=== PATIENT | female | born 1985 | race Caucasian/White ===

== ENCOUNTER → 2018-02-01 13:46 | Outpatient (CLI) | payer OTHER, SELFPAY ==
[2018-02-09 10:44] LABS: HPV HC, High Risk Negative (Negative); HPV Reflexed? YES, CHARGE PATIENT
== END ==
PROVIDERS: Visit Provider Obstetrics & Gynecology
DX: Z12.4 Encounter for screening for malignant neoplasm of cervix (principal)
CPT/HCPCS: 87624; 88175; G0145

== ENCOUNTER 2019-03-19 19:00 | Inpatient (IN) | payer OTHER, SELFPAY ==
[2019-03-19 19:49] VITALS: BMI 33.7
[2019-03-19] MEDS: 0.9% Normal Saline 100 ML IV.SOLN. INTRA-UTER (20:26)
--- NOTE | 2019-03-19 20:30 | PCM.HP.OB ---
History Date of Admission: 03/19/19 Final ASIM: 03/26/19 Gestational age: 39 Weeks and 0 Days History of this : This is a 34 year-old, 1 para 0 at 39 weeks gestation with EDC of 03/26/2019 presents for induction of labor due to chronic hypertension. She denies any gross vaginal bleeding or leaking of fluid. Headache, visual changes or epigastric pain. She is had good movement. was conceived through in vitro fertilization. Past medical history significant for infertility, and essential hypertension Past surgical history hysteroscopy and IVF retrieval Allergies No Known Allergies Allergy (Verified 02/06/16 22:42) Home Medications: Home Medications Amlodipine Besylate [Norvasc] 10 mg PO DAILY 03/19/19 Aspirin [Aspir 81] 81 mg PO DAILY 03/19/19 Labetalol 400 mg PO TID 03/19/19 Vits [Prenatabs FA] 1 tab PO DAILY 03/19/19 Smoking Status: Never smoker Alcohol: None History Past Pregnancies: Past Pregnancies Delivery Date Name GA/Weeks Outcome Route Weight Infant Gender Labor Length Anesthesia Delivery Location Provider FOB Expected Infant Delivery Method: Spontaneous Vaginal Review of Systems Constitutional: Denies: Chills, Fever Eyes: Denies: Blurred vision, Double vision Cardiovascular: Denies: Chest Pain Respiratory: Denies: Cough, Shortness of Breath Gastrointestinal: Denies: Abdominal Pain Skin: Denies: Rash Neurological: Denies: Blurred vision, Double vision, Headaches Hematologic/ Lymphatic: Denies: Hx of blood clot, Hx of blood transfusion Physical Exam General: Alert, Cooperative, No apparent distress Cardiovascular: Regular rate Lungs: Normal air movement Abdomen: Soft, Non Tender, Gravid Extremities:: No edema Neurological: Cranial nerves II-XII grossly intact, - - no clonus, 2+ DTRS EDUCATIONAL ADMINISTRATOR: Normal external genitalia Estimated gestational size: Appropriate for gestational size Presentation: Cephalic Cervix Dilation (cm): 1 - soft, mid position Station: -2 Effacement (%): 70 Assessment/Plan This is a 34 year-old, 1 para 0 at 39 weeks gestation with chronic hypertension. No evidence of preeclampsia. Labs are pending. Blood pressures are within the range as they have been at home and in the office. We will continue to monitor closely for symptoms of preeclampsia. Estimated weight is less than 4000 g clinically, pelvis clinically adequate to expect vaginal delivery. We will proceed with Cytotec, Auguste and likely artificial rupture membranes for induction of labor. Likely Pitocin titration later. May have epidural, nitrous oxide or Nubain as needed for pain control. Will initiate group B strep prophylaxis. Continue antihypertensives. Procedure note: Auguste catheter was placed over stylette into the internal cervical loss without difficulty. Balloon was inflated to 30 cc with normal saline. Placemen over internal loss was confirmed. Patient and fetus tolerated the procedure well.
[2019-03-19] MEDS: 0.9% Saline Lock 10 ML Syringe IV (20:32)
[2019-03-19 20:46] LABS: Absolute Lymphocyte Count 1.63 X10^3/uL (0.83-4.51); Absolute Neutrophil Count 5.6 X10^3/uL (2.0-7.7); Basophil# 0.03 X10^3/uL; Basophil% 0.4 % (0-1); Eosinophil# 0.06 X10^3/uL; Eosinophils% 0.8 % (0-5); Hematocrit 33.7 % (37-47); Hemoglobin 11.2 g/dL (12.0-15.0); Lymphocyte # 1.63 X10^3/ul (4.0); Lymphocyte % 20.7 % (19-41); Mean Corp Hgb Conc 33.2 g/dL (32-36); Mean Corpuscular Hgb 26.4 pg (27.0-32.0); Mean Corpuscular Volume 79.3 fL (81-99); Mean Platelet Vol. 11.8 fl (6.2-12.0); Monocyte# 0.59 X10^3/uL; Monocyte% 7.5 % (0-10); NRBC Flagged by Analyzer 0 % (0-5); Neutrophil # 5.56 X10^3/uL (2.7-7.7); Neutrophil % 70.3 % (47-70); Platelet Count 125 K/mm3 (150-450); RBC Distribution Width CV 13.2 % (11.6-14.6); RBC Distribution Width SD 37.8 fl (35.1-43.9); Red Blood Count 4.25 M/mm3 (4.2-5.4); White Blood Count 7.9 K/mm3 (4.4-11.0)
[2019-03-19 21:07] LABS: ALB/GLOB Ratio 0.7 RATIO (0.9-2.4); AST(SGOT) 11 U/L (15-37); Alanine Aminotransfer ALT/SGPT 9 U/L (13-56); Albumin, Serum 2.5 g/dL (3.2-5.0); Alkaline Phosphatase 130 U/L (45-117); Anion Gap 8 (5-15); BUN 16 mg/dL (7-18); BUN/Creat Ratio 29.1 RATIO (10-20); Calcium,Total 8.7 mg/dL (8.5-10.1); Chloride 110 mmol/L (98-107); Creatinine, Serum 0.55 mg/dL (0.55-1.02); EST Glomerular Filtration Rate 136 mL/min (>60); Est Glom Filt Rate - Afr Amer 165 mL/min (>60); Estimated Creatinine Clearance 175.95 ml/min; Globulin 3.5 g/dL (2.2-4.2); Glucose 78 mg/dL (74-106); Potassium 3.9 mmol/L (3.5-5.1); Sodium Level 138 mmol/L (136-145)
[2019-03-19] MEDS: Labetalol 200 MG Tablet 400 MG PO (22:05)
[2019-03-20] MEDS: 0.9% Saline Lock 10 ML Syringe IV (00:38)
[2019-03-20] MEDS: Lactated Ringers 1,000 ML 50 ML IV ×4 (00:41→16:36)
[2019-03-20] MEDS: Oxytocin 30 units/NS 500 ml 30 UNITS/500 ML IV.SOLN IV (00:43)
[2019-03-20] MEDS: fentaNYL-bupivacaine (epidural) 100 ML BAG EPIDURAL ×3 (02:54→16:11)
[2019-03-20] MEDS: Labetalol 200 MG Tablet 400 MG PO ×2 (06:04→18:39)
[2019-03-20] MEDS: Acetaminophen 325 MG Tablet PO ×2 (07:44→18:39)
[2019-03-20] MEDS: Ondansetron 4 MG/2 ML Vial IV (10:50)
--- NOTE | 2019-03-20 13:01 | PCM.PN.OB ---
Subjective: Resting comfortably in bed with epidural family at bedside. Objective: FHR: 125, moderate variability, accels, no decels, category 1 TOCO: every 2-4 minutes, lasting 60-70 seconds, 125 MVU, inadequate contractions, mild. Pitocin at 20mvus Cervix: 4.5cm/90%/-1 - Physical Exam Weight: 167 lb 5.294 oz Body Mass Index (BMI) 33.7 Intake and Output for Last 24 Hours 03/18/19 03/19/19 03/20/19 23:59 23:59 23:59 Intake Total 2653 / 2653 Output Total 1250 / 1250 Balance 1403 / 1403 Laboratory Tests Past 24 Hrs 03/19/19 03/19/19 03/19/19 20:10 20:10 20:10 WBC 7.9 RBC 4.25 Hgb 11.2 L Hct 33.7 L MCV 79.3 L MCH 26.4 L MCHC 33.2 RDW Std Deviation 37.8 RDW Coeff of Too 13.2 Plt Count 125 L MPV 11.8 Immature Gran % (Auto) 0.300 Neut % (Auto) 70.3 H Lymph % (Auto) 20.7 [place] % (Auto) 7.5 Eos % (Auto) 0.8 Baso % (Auto) 0.4 Absolute Neuts (auto) 5.6 Absolute Lymphs (auto) 1.63 Nucleated RBC % 0 Sodium 138 Potassium 3.9 Chloride 110 H Carbon Dioxide 20.0 L Anion Gap 8 BUN 16 Creatinine 0.55 Estim Creat Clear Calc 175.95 Est GFR (MDRD) Af Amer 165 Est GFR (MDRD) Non-Af 136 BUN/Creatinine Ratio 29.1 H Glucose 78 Calcium 8.7 Total Bilirubin 0.30 AST 11 L ALT 9 L Alkaline Phosphatase 130 H Total Protein 6.0 L Albumin 2.5 L Globulin 3.5 Albumin/Globulin Ratio 0.7 L Blood Type B POSITIVE Antibody Screen NEGATIVE Medical Necessity - Tobacco Use Smoking Status: Never smoker Assessment/Plan A:Induction of labor Category 1 FHT P: 1) Sidelying release and then positioned on hands and knees. ROP position. 2) Inadequate contractions, continue with pitocin IOL. 3) notified of patient status.
--- NOTE | 2019-03-20 18:25 | PCM.PN.OB ---
Subjective: Doing well, resting with family at bedside. Epidural effective. Objective: FHT 125, minimal variability, accels, Category 2 TOCO: every 2-3 minutes, 140 mvus, lasting 60-70 seconds. Cervix: 8.5cm/100%/+1 - Physical Exam Weight: 167 lb 5.294 oz Body Mass Index (BMI) 33.7 Intake and Output for Last 24 Hours 03/18/19 03/19/19 03/20/19 23:59 23:59 23:59 Intake Total 4249 / 4249 Output Total 2550 / 2550 Balance 1699 / 1699 Laboratory Tests Past 24 Hrs 03/19/19 03/19/19 03/19/19 20:10 20:10 20:10 WBC 7.9 RBC 4.25 Hgb 11.2 L Hct 33.7 L MCV 79.3 L MCH 26.4 L MCHC 33.2 RDW Std Deviation 37.8 RDW Coeff of Too 13.2 Plt Count 125 L MPV 11.8 Immature Gran % (Auto) 0.300 Neut % (Auto) 70.3 H Lymph % (Auto) 20.7 [place] % (Auto) 7.5 Eos % (Auto) 0.8 Baso % (Auto) 0.4 Absolute Neuts (auto) 5.6 Absolute Lymphs (auto) 1.63 Nucleated RBC % 0 Sodium 138 Potassium 3.9 Chloride 110 H Carbon Dioxide 20.0 L Anion Gap 8 BUN 16 Creatinine 0.55 Estim Creat Clear Calc 175.95 Est GFR (MDRD) Af Amer 165 Est GFR (MDRD) Non-Af 136 BUN/Creatinine Ratio 29.1 H Glucose 78 Calcium 8.7 Total Bilirubin 0.30 AST 11 L ALT 9 L Alkaline Phosphatase 130 H Total Protein 6.0 L Albumin 2.5 L Globulin 3.5 Albumin/Globulin Ratio 0.7 L Blood Type B POSITIVE Antibody Screen NEGATIVE Medical Necessity - Tobacco Use Smoking Status: Never smoker Assessment/Plan A:Active Labor, progressing Category 2 FHT P: 1) Active labor, cervical change and progressing. 2) Continue with active management 3) notified of patient status and updated.
--- NOTE | 2019-03-20 22:59 | PCM.PN.OB ---
Subjective: Pushing well, good descent. Family at bedside. Objective: FHR 130, minimal variability, variable decels, no accels, Category 2 TOCO:every 2-3 minutes +3 station, movement with pushing. - Physical Exam Weight: 167 lb 5.294 oz Body Mass Index (BMI) 33.7 Intake and Output for Last 24 Hours 03/18/19 03/19/19 03/20/19 23:59 23:59 23:59 Intake Total 4249 / 4249 Output Total 2550 / 2550 Balance 1699 / 1699 Medical Necessity - Tobacco Use Smoking Status: Never smoker Assessment/Plan A:Active labor second stage Category 2 FHT P: 1) Progressing, anticipate vaginal delivery soon
[2019-03-21] VITALS (8 sets, daily range): BP systolic 109–162; BP diastolic 66–90; PULSE 71–82; RESP 15–18; TEMP 35.9–36.8; O2SAT 96–99
[2019-03-21] MEDS: Oxytocin 30 units/NS 500 ml 30 UNITS/500 ML IV.SOLN 334 UNITS IV (00:10)
[2019-03-21] MEDS: Oxytocin 30 units/NS 500 ml 30 UNITS/500 ML IV.SOLN 167 UNITS IV (00:41)
[2019-03-21] MEDS: Lactated Ringers 500 ML 999 ML IV (00:59)
[2019-03-21] MEDS: 0.9% Saline Lock 10 ML Syringe IV (00:59)
--- NOTE | 2019-03-21 01:01 | PCM.OPRPT ---
Problem List (1) Vaginal delivery Status: Acute Vaginal Delivery Maternal Presentation: Medically Indicated Induction Method of Induction: Pitocin, Auguste Bulb Amniotic Membrane Rupture Type: Artificial Amniotic Fluid Description: Clear Final ASIM: 03/26/19 Gestational age: 39 Weeks and 2 Days Date of Procedure: 03/21/19 Pre-Operative Diagnosis: Induction of Labor, chronic HTN Post-Operative Diagnosis: , Manual removal of retained placenta Surgery/ Procedure Performed: Spontaneous Vaginal Delivery Type of Anesthesia: Epidural Description of Procedure: Progressed to complete with urge to push. of viable female over 1st degree perineal laceration. APGARS 8,9 respectively. head delivered OA and restituted to ALBERTO, shoulders forthcoming without difficulty. Infant delivered and placed on maternal abdomen. Mouth and nares suctioned for secretions, stimulated and strong cry. Pitocin started for active 3rd stage management. Placenta delivered with velamentous insertion and incomplete, 3 vessel cord via james with maternal effort/extraction. Manual exploration of uterus and removal of retained placenta fragments. Patient tolerated well under epidural analgesia. Placenta to pathology. Fundus firm, hemostasis achieved. EBL 350ml . Perineum inspected and revealed first degree perineal laceration, repaired with 3.0 vicryl. Planning to breastfeed. Mom and baby stable, family bonding well. notified of retained placental fragments and manual removal. Will give Ancef 2grams IV once. Presentation: Vertex Placental Delivery Description: Spontaneous, Manual Removal, Retained - Manual removal of retained products after sponataneous delivery. Placenta Disposition: Sent to Pathology Cord Vessel Description: 3 Vessels Cord Entanglement: None Estimated Blood Loss: 350 ml A gender: Female (1 minute): 8 (5 minute): 9 Episiotomy Description: None Laceration: Perineal Extension/lac, 1st degree Medications given after delivery: IV Pitocin
--- NOTE | 2019-03-21 01:11 | PLAC_PTH ---
PATIENT: FOREST NGUYEN LOC: [facility] U#:[id number] AGE/SX: 34/F ROOM: WP018 RE03/19/[address]: Dr. Sima Wooten MD : 1985 BED: 1 DIS: 03/22/2019 SPEC #: [id number] RECD: 03/21/19 04:05 STATUS: MICHELLE PRUITT #: [id number] ITZEL: 03/21/19 01:[address]: Sima Wooten DEPT: SURGICAL PATHOLOGY RECD BY: Levi Yoo ENTERED: 03/21/19 10:55 SP TYPE: PLACENTA OTHR DR: Dr. Leon South MD Tissues: Placenta, NOS Procedures: Surgery Specimen Level V HEADER OPERATION: Labor and delivery PRE-OP DIAGNOSIS: Vaginal delivery, abnormal placenta TISSUE SUBMITTED: Placenta MICROSCOPIC DIAGNOSIS Churchill placenta (343 gm): Umbilical cord - trivascular with no inflammation. Placental membranes - no pathologic change. Placental disc - organizing intraparenchymal hemorrhage and mild Fabiana-Aldo change. AM:rg 03/23/19 MICROSCOPIC DESCRIPTION Slides are reviewed. GROSS DESCRIPTION SPECIMEN: PLACENTA / CLINICAL INFORMATION: A. Weight: 2.728 kg B. Gestational Age: 39 weeks C. Sex: Female PLACENTAL WEIGHT (POST FIXATION): The body of the placenta including detached pieces weighs in aggregate 343 gm. A focal area of submembranous hematoma is noted close to the insertion of the umbilical cord. PLACENTAL DIMENSIONS: 15 x 14 x 3 cm PLACENTAL SHAPE: Usual ovoid. The body of the placenta is partly fragmented. A few detached pieces of placenta are also noted PLACENTAL WEIGHT FOR GESTATIONAL AGE: Within 10-99th percentile MEMBRANES - Present A. Insertion: Marginal B. Site of rupture from edge: 8 cm from edge of placental disc C. Color of membrane: Scott-gonzalez D. Abnormalities: None UMBILICAL CORD - Present A. Color: Scott-gonzalez B. Insertion: Velamentous insertion in the membrane 3 cm away from the margin of placenta. C. Length: 28 cm D. Diameter: 1 cm E. Number of vessels: Three F. Abnormalities: None PLACENTAL DISC - Present A. Color of surface: Scott-gonzalez B. surface abnormalities: None C. Maternal cotyledons: Intact with minimal tears D. Attached retro placental clot: A few blood clots are also noted in the peripheral portion of the placenta. E. Cut surface: Dark red and spongy F. Lesions: None G. Separate clot: A few detached blood clots are also noted weighing 16 gm and measuring in aggregate 6 x 5 x 2 cm. SECTIONS SUBMITTED: 1. Membrane roll 2. Cord, maternal end 3. Cord, end 4. Placental disc, and maternal surfaces 5. Placental disc, and maternal surfaces 6. Placental disc, and maternal surfaces SJ:rg 03/22/19 TC:5 CPT: 49130
[2019-03-21] MEDS: Cefazolin 2 GM in 0.9% Normal Saline 100 ML IV (01:34)
[2019-03-21] MEDS: Acetaminophen 500 MG Tablet 1000 MG PO ×3 (03:36→20:31)
--- NOTE | 2019-03-21 04:22 | NURSING ---
Epidural catheter removed, blue tip intact.
[2019-03-21] MEDS: Labetalol 200 MG Tablet 400 MG PO ×3 (05:51→20:31)
[2019-03-21 06:10] LABS: Hematocrit 27.7 % (37-47); Hemoglobin 9.5 g/dL (12.0-15.0); Mean Corp Hgb Conc 34.3 g/dL (32-36); Mean Corpuscular Volume 78.7 fL (81-99); Mean Platelet Vol. 12.9 fl (6.2-12.0); Platelet Count 114 K/mm3 (150-450); RBC Distribution Width CV 13.6 % (11.6-14.6); RBC Distribution Width SD 38.2 fl (35.1-43.9); Red Blood Count 3.52 M/mm3 (4.2-5.4); White Blood Count 13.7 K/mm3 (4.4-11.0)
--- NOTE | 2019-03-21 12:18 | NURSING ---
1215: Report given to Ariadna Cortez RN.
[2019-03-21] MEDS: Ferrous Sulfate 325 MG Tablet PO (12:34)
[2019-03-21] MEDS: amLODIPine 10 MG Tablet PO (22:03)
[2019-03-22 00:22] VITALS: BP 116/60; PULSE 65; RESP 18; TEMP 36.4
[2019-03-22 03:25] VITALS: BP 144/79; PULSE 69; RESP 18; TEMP 36.9
[2019-03-22] MEDS: Labetalol 200 MG Tablet 400 MG PO (06:40)
[2019-03-22 06:47] VITALS: BP 140/73; PULSE 77; RESP 18
--- NOTE | 2019-03-22 08:16 | PCM.PN.OB ---
Patient Problems: Active and Suspected Problems Vaginal delivery (Acute) Subjective: Denies complaints - Physical Exam General: Alert, Oriented x3 Abdomen: Non Tender, Non-Distended - ff mid & below umb Extremities: No Calf Tenderness Vital Signs Temp Pulse Resp BP Pulse Ox 98.5 F 77 18 140/73 H 97 03/22/19 03:25 03/22/19 06:47 03/22/19 06:47 03/22/19 06:47 03/21/19 16:54 Oxygen Delivery Method Room Air Weight: 167 lb 5.294 oz Body Mass Index (BMI) 33.7 Intake and Output for Last 24 Hours 03/20/19 03/21/19 03/22/19 23:59 23:59 23:59 Intake Total 4249 / 4249 2011 Output Total 2550 / 2550 1000 / 1000 Balance 1699 / 1699 1012 / 1012 Medical Necessity - Tobacco Use Smoking Status: Never smoker Assessment/Plan All Active Problems Vaginal delivery (Acute) PPD#1 D/c home per patient request Chtn - continue labetalol & norvasc. She will monitor BP's at home. Patient to call with elevated BP's or symptoms of preeclampsia.
--- NOTE | 2019-03-22 08:18 | DCINST_ITS ---
Discharge Diet: No Restrictions Discharge Activity: May Drive, May Shower Weight Bearing Status: Weight bearing as tolerated Additional Instructions: If you experience any of the following, contact your healthcare provider. * Bleeding that soaks a pad every hour for 2 hours * Fever 100.4 or higher * Unrelieved incision or abdominal pain * Swelling, redness, discharge or bleeding from your incision or episiotomy site * Your incision begins to separate * Problems urinating (including inability to urinate or burning while urinating). * Visual changes * Severe headache * Flu-like symptoms * Pain or redness in one of both of your breasts * Pain, warmth, tenderness or swelling in your legs, especially the calf area * Frequent nausea and vomiting * Symptoms of depression or anxiety If you experience any of the following, call 911 or go to the nearest Emergency Room. * Chest pain * Problems breathing * Seizure activity * Partial or complete paralysis of a body part, slurred speech, weakness or drooping of the face, or a sudden inability to walk or hold your balance Allergies/Adverse Reactions: Allergies No Known Allergies Allergy (Verified 02/06/16 22:42) Medications to take at Discharge Amlodipine Besylate [Norvasc] 10 mg PO DAILY 03/19/19 Labetalol 400 mg PO TID 03/19/19 Vits [Prenatabs FA ] 1 tab PO DAILY 03/19/19 Ferrous Sulfate 325 mg PO DAILY@1200 tablet 03/22/19 Please Follow Up With: Krystyna Talley CNM - within 1 week for a BP check Primary Care Physician: Leon South MD [Primary Care Provider] - Test Results: Test results from this visit will be discussed in further detail at your follow- up appointment, if applicable.
--- NOTE | 2019-03-22 08:18 | PCM.DCVAG ---
Discharge Diet: No Restrictions Discharge Activity: May Drive, May Shower Weight Bearing Status: Weight bearing as tolerated Additional Instructions: If you experience any of the following, contact your healthcare provider. Bleeding that soaks a pad every hour for 2 hours Fever 100.4 or higher Unrelieved incision or abdominal pain Swelling, redness, discharge or bleeding from your incision or episiotomy site Your incision begins to separate Problems urinating (including inability to urinate or burning while urinating). Visual changes Severe headache Flu-like symptoms Pain or redness in one of both of your breasts Pain, warmth, tenderness or swelling in your legs, especially the calf area Frequent nausea and vomiting Symptoms of depression or anxiety If you experience any of the following, call 911 or go to the nearest Emergency Room. Chest pain Problems breathing Seizure activity Partial or complete paralysis of a body part, slurred speech, weakness or drooping of the face, or a sudden inability to walk or hold your balance Allergies/Adverse Reactions: Allergies No Known Allergies Allergy (Verified 02/06/16 22:42) Medications to take at Discharge Amlodipine Besylate [Norvasc] 10 mg PO DAILY 03/19/19 Labetalol 400 mg PO TID 03/19/19 Vits [Prenatabs FA ] 1 tab PO DAILY 03/19/19 Ferrous Sulfate 325 mg PO DAILY@1200 tablet 03/22/19 Please Follow Up With: Krystyna Talley CNM - within 1 week for a BP check Primary Care Physician: Leon South MD [Primary Care Provider] - Test Results: Test results from this visit will be discussed in further detail at your follow-up appointment, if applicable.
[2019-03-22 09:30] VITALS: BP 131/68; PULSE 63; RESP 16; TEMP 36.6; O2SAT 98
--- NOTE | 2019-03-22 09:36 | NURSING ---
Mia at bedside.
[2019-03-26 09:44] LABS: Pathology Specimen OB SEE PATHOLOGY REPORT
== END 2019-03-22 10:10 | disposition home or self-care (01) | DRG 807 ==
PROVIDERS: Advanced Practice Midwife; Admitting Provider Obstetrics & Gynecology; Family Provider Family Medicine; PCP Family Medicine; Referring Provider Obstetrics & Gynecology; Visit Provider Obstetrics & Gynecology
DX: O10.92 Unspecified pre-existing hypertension complicating childbirth (principal); O73.1 Retained portions of placenta and membranes, without hemorrhage; O70.0 First degree perineal laceration during delivery; Z79.899 Other long term (current) drug therapy; Z3A.39 39 weeks gestation of pregnancy; Z37.0 Single live birth
CPT/HCPCS: 59025; 59050; 80053; 85025; 85027; 86850; 86900; 88307; 99218; J7120; A4216; G0378; J2405

== ENCOUNTER 2022-08-18 08:43 | Day surgery (SDC) | payer OTHER, SELFPAY ==
[2022-08-18] MEDS: Lactated Ringers 1,000 ML 15 ML IV (08:50)
[2022-08-18 09:07] LABS: Internal QC Validated? YES +Cl - CLEAR BKGD; Pregnancy, Urine Negative Negative
[2022-08-18 09:08] VITALS: BP 150/94; PULSE 83; RESP 17; TEMP 36.1; O2SAT 100; BMI 36.9
--- NOTE | 2022-08-18 09:21 | HP.PCM_ITS ---
History and Physical Date of Admission: 08/18/22 37 F who presents to the office today for initial consultation regarding heartburn.? Heartburn began in 2018 when she was , it improved after delivery but never resolved.? She requires omeprazole 40 mg twice daily, if she misses a dose then she does have heartburn.? She is typically symptom-free during the day, but wakes up at night coughing and has regurgitation of liquid, she notes there is no burning with this regurgitation as long as she takes omeprazole.? She has no nausea or vomiting.? Sometimes has early satiety.? She has no abdominal pain.? For about the past year she has noted some difficulty with swallowing.? Sometimes she feels like food is sticking in the upper esophagus, she needs to swallow twice to get it down.? She had an esophagram earlier this year at [facility] which showed a small hiatal hernia, but she was told there were no other abnormalities.? She has never had an EGD.? She does have a prescription for Carafate recently given to her by primary care which she plans to try.? Bowels are regular, she has no diarrhea or constipation.? No melena or hematochezia.? She states that this is the heaviest she has ever been, she plans on working on losing weight. ROS Const Constitutional: Positive for fatigue and headache(s) ENT ENT: Positive for headache(s); No difficulty swallowing Gastro GI: Positive for heartburn; No abdominal pain, belching, bloating, change in bowel habits, change in stool character, coffee ground emesis, constipation, cramping, diarrhea, difficulty swallowing, feeling full early, excessive flatus, incontinent of stools, Vomiting blood/hematemesis, Blood in stool, loose stools, Black,tarry stools, nausea/dyspepsia, pain with swallowing, vomiting or other Musc Musculoskeletal: No joint pain Skin Skin: No yellowing of the eye or itchy eyes Neuro Neurology: Positive for headache(s) Psych Psychiatric: No anxiety and No depression Endo Endocrine: Positive for fatigue Aller/Imm Allergy/Immunologic: No itchy eyes Pete/Lymp Hematologic/Lymphatic: No easy bleeding or easy bruising Exam Const General: cooperative and comfortable Orientation: alert, awake and oriented x3 Eyes General: appearance normal, both eyes and all related structures GI Inspection: obesity Quality Reporting Tobacco Screening (CMS 138) Smoking Status: Never smoker Assessment and Plan Assessment and Plan (1) GERD (gastroesophageal reflux disease): ?Status:?Acute ?Plan: 37-year-old female with chronic heartburn which requires omeprazole 40 mg twice daily.? Even with PPI therapy she does have symptoms at night.? She has short stature and obesity which are probably exacerbating the problem.? Hiatal hernia seen on esophagram.? We will schedule her for EGD for evaluation of esophagitis, Mcfarlane's, stenosis or stricture, peptic ulcer disease.? Follow-up in office 2 weeks later. I have examined the patient and the H&P has been reviewed. There are no clinical changes since date of exam.
--- NOTE | 2022-08-18 09:45 | EGD_PTH ---
PATIENT: FOREST NGUYEN LOC: EN U#:[id number] AGE/SX: 37/F ROOM: RE08/18/[address]: Dr. Matt Joyner DO : 1985 BED: DIS: 08/18/2022 SPEC #: [id number] RECD: 08/18/22 12:41 STATUS: MICHELLE REJudah #: [id number] ITZEL: 08/18/22 09:[address]: Matt Joyner DEPT: SURGICAL PATHOLOGY RECD BY: Levi Yoo ENTERED: 08/18/22 13:30 SP TYPE: EGD BIOPSY MATIAS DR: Dr. Daya Godinez MD Tissues: A - Esophagus, NOS B - Duodenum, NOS Procedures: Special Stain Group II Surgery Specimen Level IV Alcian Blue/PAS (control) HEADER OPERATION[place] [place] PRE-OP DIAGNOSIS: GERD TISSUE SUBMITTED: A ? Distal esophagus biopsy, B ? Duodenum biopsy MICROSCOPIC DIAGNOSIS A. Distal esophagus, biopsy: Fragments of gastroesophageal mucosa with chronic inflammation. Intestinal metaplasia (goblet cell metaplasia) not identified. See comment. B. Duodenum, biopsy: Fragments of duodenal mucosa with mild Belkis gland hyperplasia. LONI:michaela 08/19/2022 COMMENT A. Alcian blue/PAS stain with matched control is used in the evaluation of the specimen. MICROSCOPIC DESCRIPTION Slides are reviewed. GROSS DESCRIPTION A - Received in fixative is one container labeled with the patient's name and designated distal esophagus biopsy. The specimen consists of multiple irregular fragments of light beltran soft tissue that in aggregate measure 1 x 0.3 x 0.1 cm. The specimen is totally submitted in one cassette. B - Received in fixative is one container labeled with the patient's name and designated duodenum biopsy. The specimen consists of multiple irregular fragments of light beltran soft tissue that in aggregate measure 1 x 0.3 x 0.1 cm. The specimen is totally submitted in one cassette. / LONI:michaela 08/18/2022 TC:3 CPT: 37395 x2, 48107
[2022-08-18 10:45] VITALS: BP 116/79; BP 150/94; PULSE 87; RESP 16; TEMP 36.2; O2SAT 95
--- NOTE | 2022-08-18 10:46 | OP.EGD_ITS ---
Patient Name: Ro Ovalle Procedure Date: 08/18/2022 10:21 AM Date of : 1985 Age: 37 Procedure: Upper GI endoscopy Indications: Functional Dyspepsia, Heartburn Providers: Matt Joyner DO Medicines: Monitored Anesthesia Care Patient Profile: This is a 37 year old female. Refer to note in patient chart for documentation of history and physical. Patient has symptoms of chronic epigastric abdominal pain, chronic dyspepsia, chronic heartburn and chronic nausea. Complications: No immediate complications. Procedure: Pre-Anesthesia Assessment: - Prior to the procedure, a History and Physical was performed, and patient medications and allergies were reviewed. The patient is competent. The risks and benefits of the procedure and the sedation options and risks were discussed with the patient. All questions were answered and informed consent was obtained. Patient identification and proposed procedure were verified by the physician in the pre-procedure area. Mental Status Examination: alert and oriented. Airway Examination: normal oropharyngeal airway and neck mobility. Respiratory Examination: clear to auscultation. CV Examination: normal. Prophylactic Antibiotics: The patient does not require prophylactic antibiotics. Prior Anticoagulants: The patient has taken no previous anticoagulant or antiplatelet agents. ASA Grade Assessment: II - A patient with mild systemic disease. After reviewing the risks and benefits, the patient was deemed in satisfactory condition to undergo the procedure. The anesthesia plan was to use monitored anesthesia care (MAC). Immediately prior to administration of medications, the patient was re-assessed for adequacy to receive sedatives. The heart rate, respiratory rate, oxygen saturations, blood pressure, adequacy of pulmonary ventilation, and response to care were monitored throughout the procedure. The physical status of the patient was re-assessed after the procedure. After obtaining informed consent, the endoscope was passed under direct vision. Throughout the procedure, the patient's blood pressure, pulse, and oxygen saturations were monitored continuously. The Endoscope was introduced through the mouth, and advanced to the second part of duodenum. The upper GI endoscopy was accomplished without difficulty. The patient tolerated the procedure well. Scope In: 10:34:25 AM Scope Out: 10:39:09 AM Total Procedure Duration Time 0 hours 4 minutes 44 seconds Findings: No gross lesions were noted in the entire esophagus. The Z-line was irregular and was found 38 cm from the incisors. Biopsies were taken with a cold forceps for histology. Verification of patient identification for the specimen was done. Estimated blood loss was minimal. A small hiatal hernia was present. A few 5 mm sessile polyps with no stigmata of recent bleeding were found in the gastric fundus. Mild gastric antral vascular ectasia was present in the gastric antrum. Localized mild inflammation was found in the duodenal bulb. Biopsies were taken with a cold forceps for histology. Verification of patient identification for the specimen was done. Impression: - No gross lesions in esophagus. - Z-line irregular, 38 cm from the incisors. Biopsied. - Small hiatal hernia. - A few gastric polyps. - Gastric antral vascular ectasia. - Bile reflux with bile gastritis - Duodenitis. Biopsied. Recommendation: - Discharge patient to home. - Resume previous diet. - Continue present medications. - Await pathology results. Procedure Code(s): --- Professional --- 08503, Esophagogastroduodenoscopy, flexible, transoral; with biopsy, single or multiple CPT copyright 2017 [employer]. All rights reserved. The codes documented in this report are preliminary and upon caramel cutter helper review may be revised to meet current compliance requirements. Matt Joyner DO 08/18/2022 10:46:11 AM This report has been signed electronically. Number of Addenda: 0 Note Initiated On: 08/18/2022 10:21 AM
--- NOTE | 2022-08-18 10:47 | OP.CCLET_ITS ---
08/18/2022 Daya Godinez Re : Upper GI endoscopy procedure for Ro Ovalle Dear Herbert This procedure was performed on Thursday, August 18, 2022. My impressions and recommendations are as follows: Impressions : - No gross lesions in esophagus. - Z-line irregular, 38 cm from the incisors. Biopsied. - Small hiatal hernia. - A few gastric polyps. - Gastric antral vascular ectasia. - Bile reflux with bile gastritis - Duodenitis. Biopsied. Recommendations : - Discharge patient to home. - Resume previous diet. - Continue present medications. - Await pathology results. My findings are described in the full procedure note, which is enclosed. If I can be of further assistance, please feel free to contact me at . Sincerely, Matt Joyner, 08/18/2022 10:46:11 AM This report has been signed electronically.
[2022-08-18 10:50] VITALS: BP 120/78; BP 150/94; PULSE 84; RESP 16; O2SAT 97
[2022-08-18 10:55] VITALS: BP 125/80; BP 150/94; PULSE 84; RESP 16; O2SAT 94
[2022-08-18 11:00] VITALS: BP 119/83; BP 150/94; PULSE 79; RESP 16; TEMP 36.2; O2SAT 97
[2022-08-18 11:20] VITALS: BP 150/94
== END 2022-08-18 11:40 | disposition home or self-care (01) ==
LOC: EN 08:45 → AC 08:47
PROVIDERS: Anesthesiology; PCP Internal Medicine; Referring Provider Internal Medicine; Visit Provider Internal Medicine Gastroenterology
PROC: 0DJ08ZZ Inspection of Upper Intestinal Tract, Via Natural or Artificial Opening Endoscopic (ICD-10-PCS; CPT 43235; principal; 2022-08-18 09:40)
DX: K21.00 Gastro-esophageal reflux disease with esophagitis, without bleeding (principal); K44.9 Diaphragmatic hernia without obstruction or gangrene; K31.7 Polyp of stomach and duodenum; E66.9 Obesity, unspecified; K31.819 Angiodysplasia of stomach and duodenum without bleeding; K31.89 Other diseases of stomach and duodenum; I10 Essential (primary) hypertension; Z79.899 Other long term (current) drug therapy; Z68.37 Body mass index [BMI] 37.0-37.9, adult
CPT/HCPCS: 43239; 81025; 88305; 88313; J7120; J2405

== ENCOUNTER → 2022-09-10 | Outpatient (CLI) | payer OTHER, SELFPAY ==
[2022-09-10 12:46] LABS: Hemoglobin A1c 5.5 % (3.8-5.6)
[2022-09-10 12:52] LABS: Absolute Lymphocyte Count 1.81 X10^3/uL (0.83-4.51); Absolute Neutrophil Count 5.4 X10^3/uL (2.0-7.7); Basophil# 0.03 X10^3/uL; Basophil% 0.4 % (0-1); Eosinophil# 0.14 X10^3/uL; Eosinophils% 1.8 % (0-5); Hematocrit 40.8 % (37-47); Hemoglobin 13.5 g/dL (12.0-15.0); Lymphocyte # 1.81 X10^3/ul (0.83-4.51); Lymphocyte % 22.8 % (19-41); Mean Corp Hgb Conc 33.1 g/dL (32-36); Mean Corpuscular Hgb 25.3 pg (27.0-32.0); Mean Corpuscular Volume 76.4 fL (81-99); Mean Platelet Vol. 10.4 fl (6.2-12.0); Monocyte# 0.53 X10^3/uL; Monocyte% 6.7 % (0-10); NRBC Flagged by Analyzer 0 % (0-5); Neutrophil # 5.42 X10^3/uL (2.7-7.7); Platelet Count 298 K/mm3 (150-450); RBC Distribution Width CV 14.1 % (11.6-14.6); RBC Distribution Width SD 38.4 fl (35.1-43.9); Red Blood Count 5.34 M/mm3 (4.2-5.4)
[2022-09-10 13:01] LABS: ALB/GLOB Ratio 1.1 RATIO (0.9-2.4); AST(SGOT) 27 U/L (15-37); Alanine Aminotransfer ALT/SGPT 42 U/L (13-56); Alkaline Phosphatase 76 U/L (45-117); Anion Gap 8 (5-15); BUN 12 mg/dL (7-18); BUN/Creat Ratio 19.9 RATIO (10-20); CRP < 2.90 mg/L (0.0-3.0); Calcium,Total 9.5 mg/dL (8.5-10.1); Chloride 109 mmol/L (98-107); EST Glomerular Filtration Rate 120 mL/min (>60); Est Glom Filt Rate - Afr Amer 145 mL/min (>60); Free T3 2.6 pg/mL (2.18-3.98); Globulin 3.7 g/dL (2.2-4.2); Glucose 107 mg/dL (74-106); LDH 149 U/L (84-246); Potassium 4.1 mmol/L (3.5-5.1); Protein, Total 7.7 g/dL (6.4-8.2); Sodium Level 141 mmol/L (136-145); T4 Free Direct 0.82 ng/dL (0.76-1.46); Thyroid Stim Hormone (TSH) 2.51 uIU/mL (0.358-3.74)
[2022-09-10 13:40] LABS: Erythrocyte Sedimentation Rate 21 mm/hr (0-30)
[2022-09-13 08:07] LABS: Endomysial Antibody IgA Negative (Negative)
[2022-09-13 10:08] LABS: Immunoglobulin A 139 mg/dL (87-352); t-Transglutaminase IgA <2 U/mL (0-3)
[2022-09-13 16:09] LABS: Anti-Centromere B Ab <0.2 AI (0.0-0.9); Anti-Chromatin <0.2 AI (0.0-0.9); Anti-Jo <0.2 AI (0.0-0.9); Anti-Scleroderma-70 AB <0.2 AI (0.0-0.9); RNP Ab <0.2 AI (0.0-0.9); SJOGREN'S Anti-SS-A test < 0.2 AI (0.0-0.9); SJOGREN'S Anti-SS-B test < 0.2 AI (0.0-0.9); Smith Ab <0.2 AI (0.0-0.9)
[2022-09-13 17:02] LABS: Anti-Mitochondrial AB <20.0 Units (0.0-20.0); Anti-dsDNA Ab 1 IU/mL (0-9)
[2022-09-15 14:10] LABS: Albumin 4.2 g/dL (2.9-4.4); Alpha-1-Globulins 0.2 g/dL (0.0-0.4); Alpha-2-Globulins 0.7 g/dL (0.4-1.0); Cytoplasmic Ab (C-ANCA) <1:20 titer (Neg:<1:20); Gamma Globulin 0.6 g/dL (0.4-1.8); Immunoglobulin A 135 mg/dL (87-352); Immunoglobulin E 9 IU/mL (6-495); Immunoglobulin G 851 mg/dL (586-1602); Immunoglobulin M 37 mg/dL (26-217)
[2022-09-15 16:32] LABS: Anti-Smooth Muscle ABS 6 Units (0-19)
[2022-09-15 16:33] LABS: Anti-Parietal Cell AB, QN 1.6 Units (0.0-20.0); Perinuclear Ab (P-ANCA) <1:20 titer (Neg:<1:20); Thyroid Peroxidase AB 13 IU/mL (0-34)
== END | disposition home or self-care (01) ==
LOC: LAB 12:05
PROVIDERS: PCP Internal Medicine; Referring Provider Nurse Practitioner Adult Health; Visit Provider Nurse Practitioner Adult Health
DX: K31.819 Angiodysplasia of stomach and duodenum without bleeding (principal); K29.60 Other gastritis without bleeding; R53.83 Other fatigue
CPT/HCPCS: 36415; 80053; 82784; 82785; 83036; 83516; 83615; 84165; 84439; 84443; 84481; 85025; 85652; 86140; 86225; 86235; 86255; 86256; 86334; 86340; 86376

== ENCOUNTER → 2022-09-23 | Outpatient (CLI) | payer OTHER, SELFPAY ==
--- NOTE | 2022-09-23 09:18 | NM_ITS ---
CLINICAL: 37-year-old female with history of clinical gastroparesis. SEMI-SOLID PHASE 99m Tc SULFUR COLLOID GASTRIC EMPTYING STUDY COMPARISON: None available FINDINGS: The patient was administered 1.1 mCi of 99m Tc sulfur colloid mixed with oatmeal and consumed per os. Image acquisitions in the anterior-posterior projections were obtained for 60 minutes. There is prompt visualization of the stomach. There is no gastroesophageal reflux identified. The T ? linear fit was un-calculable, (Normal: 12-56 minutes). NM/Gastric Emptying Study IMPRESSION: 1. SEVERELY ABNORMAL 99m Tc sulfur colloid semi-solid phase (oatmeal) gastric emptying imaging examination. A. There is markedly delayed semi-solid phase gastric emptying compared to normal controls with no definable emptying of the gastric contents. (Cristian et al, J Nucl Med Tech 38: 186, 2010). Electronically Signed: Justice Parsons, at 22:37 EST ,
--- NOTE | 2022-09-23 09:18 | US_ITS ---
STUDY: ABDOMINAL ULTRASOUND - RIGHT UPPER QUADRANT REASON FOR VISIT: Female, 37 years old GAVE, bile reflux -- RUQ, elastography TECHNIQUE: Ultrasound evaluation of the right upper quadrant was performed with real-time and static gonzalez-scale imaging. TECHNICAL QUALITY: Adequate. COMPARISON: None. FINDINGS: Liver: The liver measures 16.5 cm. There is increased echogenicity consistent with fatty infiltration. The bile ducts are within normal limits. There is hepatic color flow. The direction of portal flow is hepatopetal. There is no demonstrated mass lesion. Gallbladder: Normal distended gallbladder. The gallbladder wall measures 1 mm. There is a negative sonographic Saravia''s sign. There is no pericholecystic fluid. There are no gallstones. Common Bile Duct (C.B.D.): The common bile duct measures 4 mm. Pancreas: Normal size of the head, body and tail of the pancreas. There is normal echogenicity of the pancreas. There is no demonstrated pancreatic mass or cyst. Right Kidney: Normal size of the right kidney. The right kidney measures 10.6 cm x 5.4 cm x 4.8 cm. Normal renal cortex. The right cortex measures 1.7 cm. There is no demonstrated renal mass or cyst. There is no right hydronephrosis. US/Abdomen Limited IMPRESSION: Diffuse fatty infiltration of the liver. Electronically Signed: Denys Bowser MD at 13:41 EST ,
--- NOTE | 2022-09-23 09:18 | US_ITS ---
STUDY: ABDOMINAL ULTRASOUND - ELASTOGRAPHY REASON FOR VISIT: Female, 37 years old. Fatty infiltration of the liver. TECHNIQUE: Liver stiffness measurements were obtained on a [employer] RS 85 ultrasound machine using a CA 1-7 probe following the SRU guidelines. 3 measurements were obtained using a 2-D-SWE method. TheIQR/M was 12% suggesting a quality data set. TECHNICAL QUALITY: Adequate. COMPARISON: Comparison is made with prior study done earlier in the day. FINDINGS: Liver: Fatty infiltration of the liver. Median liver stiffness measured 14 kPa. US/Elastography Parenchyma/Organ IMPRESSION: Liver stiffness measures 14 kPa compatible with F3-F4 (Moderate to severe liver fibrosis) Metavir score. Electronically Signed: Denys Bowser MD at 13:42 EST ,
== END | disposition home or self-care (01) ==
PROVIDERS: PCP Internal Medicine; Visit Provider Nurse Practitioner Adult Health
DX: K29.60 Other gastritis without bleeding (principal); K31.819 Angiodysplasia of stomach and duodenum without bleeding
CPT/HCPCS: 76705; 76981; 78264; A9541

== ENCOUNTER 2023-01-17 18:07 | Emergency (ER) | payer OTHER, SELFPAY ==
[2023-01-17 18:07] VITALS: BP 179/79; PULSE 84; RESP 14; TEMP 36.6; O2SAT 98; BMI 35.6
--- NOTE | 2023-01-17 18:28 | CT_ITS ---
STUDY: CT Abdomen And Pelvis W/O Contrast Injection 01/17/2023 7:33 PM REASON FOR EXAM: Female, 38 years old. LT FLANK PAIN, BLOOD IN URINE. Pain TECHNIQUE: Transaxial images were obtained without oral contrast, and without intravenous contrast. Individualized dose optimization techniques were used for this CT. COMPARISON: None. FINDINGS: The visualized lung bases are unremarkable. The visualized portions of the heart are within normal limits. There is decreased attenuation of the liver consistent with steatosis. Unremarkable gallbladder and extrahepatic biliary system. Unremarkable spleen. Unremarkable pancreas. Unremarkable bilateral adrenal glands. No acute findings of the right kidney. Mild hydronephrosis caused by proximal left 3.1 mm ureteral stone. Unremarkable visualized stomach. Unremarkable small intestine. Unremarkable colon. The appendix is visualized and appears unremarkable. There are no acute findings of the abdominal aorta. Unremarkable inferior vena cava. Subcentimeter mesenteric lymph nodes. Unremarkable urinary bladder. Normal visualized uterus. Unremarkable abdominal wall. There are diffuse degenerative changes of the visualized lumbar spine. CT/Abdomen/Pelvis without Cont IMPRESSION: (NOT LISTED IN ORDER OF SIGNIFICANCE) Fatty liver. Mild hydronephrosis caused by proximal left 3.1 mm ureteral stone. Other findings as above. Electronically Signed: Tavon Pollack MD at 19:36 EDT ,
--- NOTE | 2023-01-17 18:29 | EX.ED.DYSGE1 ---
HPI History of Present Illness Chief Complaint: Flank Pain Informant: patient Narrative Narrative: Patient presents with left lower quadrant/flank pain that really just started couple hours or so ago. Patient states its painful when she really points to the left lower quadrant in the lateral left flank. But its not around her back toward the CVA area. It started relatively quickly. She states she has nausea that comes in waves when the pain is bad. The pain waxes and wanes but does not go away. Nothing specifically makes it better or worse. She denies to me that she has ever had a kidney stone. She did note that when she urinated today she thinks there was a little bit of blood when she wiped. Her last menstrual cycle was a week ago and she has been very regular. She has not had any vaginal bleeding or discharge. She has no fevers or chills. Yesterday she felt perfectly fine. No change in medications. No history of intra-abdominal surgeries. [facility] Medical History Alcohol use Difficulty swallowing Gastric reflux GERD (gastroesophageal reflux disease) History of hiatal hernia History of in vitro fertilization Hypersomnia, unspecified Hypertension Migraine headache Morbid (severe) obesity due to excess calories Shortness of breath on exertion Vaginal delivery Wears contact lenses Home Medications amlodipine 10 mg tablet 10 mg PO DAILY chronic htn 03/19/19 [History Last Taken 08/18/22] labetalol 200 mg tablet 200 mg PO TID 04/09/22 [History Last Taken 08/18/22] omeprazole 40 mg capsule,delayed release 40 mg PO BID 04/09/22 [History Last Taken 08/18/22] ursodiol 250 mg tablet 250 mg PO BID #180 tabs 09/30/22 [Rx Last Taken Unknown] naproxen 500 mg tablet (Naprosyn) 500 mg PO BID PRN pain #20 tabs 01/17/23 [Rx Last Taken Unknown] ondansetron 4 mg disintegrating tablet 4 mg PO Q8H PRN PRN Nausea #10 tabs 01/17/23 [Rx Last Taken Unknown] oxycodone-acetaminophen 5 mg-325 mg tablet 1 tab PO Q6H PRN PRN Pain 3 days #12 TABLETS 01/17/23 [Rx Last Taken Unknown] tamsulosin 0.4 mg capsule (Flomax) 0.4 mg PO DAILY #7 caps 01/17/23 [Rx Last Taken Unknown] Allergy/AdvReac Type Severity Reaction Status Date / Time No Known Allergies Allergy Verified 01/17/23 18:07 Family History Mother Hypertension Aunt Lung cancer Grandmother Hypertension Heart disease Grandfather Hypertension Grandfather Diabetes Grandmother TIA (transient ischemic attack) Hypertension Uncle Colon cancer Surgical History Hx of wisdom tooth extraction Social History Smoking Status: Never smoker alcohol intake: current ROS ROS ED ROS Narrative A complete review of systems was performed and is negative except as documented in the history of present illness. Some specific details below. Constitutional: No recent fevers or chills. No malaise. ENT: No difficulty swallowing. No swelling. No pain. No symptoms of GERD although she has this as a history. CV: No chest pain or palpitations. Respiratory: No dyspnea. No hemoptysis. No difficulty taking breaths. GI: Please see history of present illness. : No frequency dysuria or hematuria. She did see a little bit of blood after urinating with wiping but does not know if she saw it actually in the urine. Musculoskeletal: No recent trauma. No pains. Skin: No rash. Nondiaphoretic. Neuro: No weakness or numbness. Endocrine: No polyuria or polydipsia. EXAM Physical Exam Narrative Exam Narrative: CONSTITUTIONAL: Patient is nontoxic in appearance. The patient looks comfortable. HEENT: No notable trauma. Mucous membranes moist. No sinus tenderness. No indication of pain with swallowing. EYES: No conjunctival injection. No proptosis. CARDIOVASCULAR: Regular rate. Regular rhythm. No notable murmur. No JVD. RESPIRATORY: No respiratory distress. Breathing is unlabored. No wheezes. No rhonchi. No rales. No pain with a deep breath. GASTROINTESTINAL: Not distended. Bowel sounds are normal. He does have a very mild left lower quadrant tenderness. No guarding. No rebound. No palpable mass. No bruit. GENITOURINARY: No tenderness over the bladder. No CVA tenderness on either side. MUSCULOSKELETAL: Atraumatic. No peripheral edema. NEUROLOGICAL: Patient is alert and appropriate. No focal deficit noted. SKIN: No noted rashes. No diaphoresis. PSYCHIATRIC: Patient is calm. Mood is appropriate. Const Vital Signs: 01/17/23 18:07 01/17/23 19:09 01/17/23 19:09 Temperature 98 F 98 F Temperature Source Temporal Temporal Pulse Rate 84 67 Respiratory Rate 14 18 Respiratory Pattern Normal Blood Pressure 179/79 H 191/118 H Blood Pressure Mean 112 142 Pulse Ox 98 97 Oxygen Delivery Method Room Air Room Air MDM MDM MDM Narrative Medical decision making narrative: My independent interpretation the patient's CT scan of the abdomen without contrast shows a mid ureteral stone about 4 to 4-1/2 mm in the left. Final reading is pending by radiology. CBC is normal including white count hemoglobin and platelets. Electrolytes show no marked abnormalities. Minimal decrease of sodium to only 135. Serum is negative. Urinalysis shows increased red cells and just a few white cells but this is more consistent with stone and not infection. Final reading by radiologist 3.1 mm mid ureteral stone. There is mild hydronephrosis. Patient is feeling better. She still has some pain. Nausea is gone. I will get her some more meds for pain. We will get her meds to go and Flomax. We discussed reasons to return needed follow-up possible future procedures and complications. Lab Data Attestation: I reviewed the patient's lab results. Labs: Laboratory Results - last 24 hr 01/17/23 01/17/23 01/17/23 18:40 18:40 18:40 WBC 8.7 RBC 5.87 H Hgb 14.6 Hct 45.2 MCV 77.0 L MCH 24.9 L MCHC 32.3 RDW Std Deviation 37.4 RDW Coeff of Too 13.6 Plt Count 308 MPV 10.3 Immature Gran % (Auto) 0.200 Neut % (Auto) 72.9 H Lymph % (Auto) 20.2 Bracken % (Auto) 4.8 Eos % (Auto) 1.3 Baso % (Auto) 0.6 Absolute Neuts (auto) 6.3 Absolute Lymphs (auto) 1.76 Nucleated RBC % 0 Sodium 135 L Potassium 3.9 Chloride 107 Carbon Dioxide 24.0 Anion Gap 4 L BUN 11 Creatinine 0.72 Estim Creat Clear Calc 136.42 Est GFR (MDRD) Af Amer 118 Est GFR (MDRD) Non-Af 97 BUN/Creatinine Ratio 15.2 Glucose 93 Calcium 9.5 Serum , Qual NEGATIVE Urine Color Urine Clarity Urine pH Ur Specific [place] Urine Protein Urine Glucose (UA) Urine Ketones Urine Occult Blood Urine Nitrite Urine Bilirubin Urine Urobilinogen Ur Leukocyte Esterase Urine RBC Urine WBC Ur Squamous Epith Cells Urine Bacteria Urine Mucus 01/17/23 18:40 WBC RBC Hgb Hct MCV MCH MCHC RDW Std Deviation RDW Coeff of Too Plt Count MPV Immature Gran % (Auto) Neut % (Auto) Lymph % (Auto) Bracken % (Auto) Eos % (Auto) Baso % (Auto) Absolute Neuts (auto) Absolute Lymphs (auto) Nucleated RBC % Sodium Potassium Chloride Carbon Dioxide Anion Gap BUN Creatinine Estim Creat Clear Calc Est GFR (MDRD) Af Amer Est GFR (MDRD) Non-Af BUN/Creatinine Ratio Glucose Calcium Serum , Qual Urine Color Yellow Urine Clarity Cloudy Urine pH 6.0 Ur Specific [place] 1.025 Urine Protein 100 H Urine Glucose (UA) Normal Urine Ketones 15 H Urine Occult Blood 250 H Urine Nitrite Negative Urine Bilirubin Negative Urine Urobilinogen Normal Ur Leukocyte Esterase 100 H Urine RBC > 100 SEEN Urine WBC 5-10 SEEN Ur Squamous Epith Cells 0-5 SEEN Urine Bacteria 1+ Urine Mucus 0 SEEN Radiography Diagnostic Testing: Clinical Impression(s) from Imaging Studies Abdomen/Pelvis CT 01/17/23 18:28 IMPRESSION: (NOT LISTED IN ORDER OF SIGNIFICANCE) Fatty liver. Mild hydronephrosis caused by proximal left 3.1 mm ureteral stone. Other findings as above. Electronically Signed: Tavon Pollack MD at 19:36 EDT Reading Location ID and State: [facility] / [place] , Service support , Discharge Plan Triage Chief Complaint: Flank Pain ED Provider: Tucker Bob Dx/Rx/DC Orders Clinical Impression: Kidney stone on left side, Hematuria, Nausea Instructions: ED Kidney Stone w/ Colic Prescriptions: New oxycodone-acetaminophen [oxycodone-acetaminophen] 5-325 mg tablet 1 tab PO Q6H PRN PRN (Reason: Pain) 3 Days Qty: 12 0RF ondansetron [ondansetron] 4 mg tablet,disintegrating 4 mg PO Q8H PRN PRN (Reason: Nausea) Qty: 10 0RF naproxen [Naprosyn] 500 mg tablet 500 mg PO BID PRN (Reason: pain) Qty: 20 0RF tamsulosin [Flomax] 0.4 mg capsule 0.4 mg PO DAILY Qty: 7 0RF No Action labetalol 200 mg tablet 200 mg PO TID omeprazole 40 mg capsule,delayed release(DR/EC) 40 mg PO BID amlodipine 10 MG tablet 10 mg PO DAILY ursodiol 250 mg tablet 250 mg PO BID Qty: 180 1RF Primary Care Provider: Daya Godinez Referrals: Daya Godinez MD [Primary Care Provider] - Nicole Dickson MD [Med Staff - Active Staff] - 3-5 Days Disposition Disposition: Home, Self Care
[2023-01-17 18:47] LABS: Mucous, Urine 0 SEEN /hpf (<or=2+)
[2023-01-17 18:48] LABS: Absolute Lymphocyte Count 1.76 X10^3/uL (0.83-4.51); Absolute Neutrophil Count 6.3 X10^3/uL (2.0-7.7); Basophil# 0.05 X10^3/uL; Basophil% 0.6 % (0-1); Eosinophil# 0.11 X10^3/uL; Eosinophils% 1.3 % (0-5); Hematocrit 45.2 % (37-47); Hemoglobin 14.6 g/dL (12.0-15.0); Lymphocyte # 1.76 X10^3/ul (0.83-4.51); Lymphocyte % 20.2 % (19-41); Mean Corp Hgb Conc 32.3 g/dL (32-36); Mean Corpuscular Hgb 24.9 pg (27.0-32.0); Mean Platelet Vol. 10.3 fl (6.2-12.0); Monocyte# 0.42 X10^3/uL; Monocyte% 4.8 % (0-10); NRBC Flagged by Analyzer 0 % (0-5); Neutrophil # 6.34 X10^3/uL (2.7-7.7); Neutrophil % 72.9 % (47-70); Platelet Count 308 K/mm3 (150-450); RBC Distribution Width CV 13.6 % (11.6-14.6); RBC Distribution Width SD 37.4 fl (35.1-43.9); Red Blood Count 5.87 M/mm3 (4.2-5.4); White Blood Count 8.7 K/mm3 (4.4-11.0)
[2023-01-17 18:55] LABS: Color, Urine Yellow (Yellow); Glucose, Dipstick Normal (Normal); Ketone-Dipstick 15 mg/dl (Negative); Leukocyte Esterase-Dipstick 100 /ul (Negative); Nitrite-Dipstick Negative (Negative); Occult Blood-Urine 250 /ul (Negative); Protein-Dipstick 100 mg/dl (Negative); Specific Gravity, Urine 1.025 (1.002-1.030); Urine Bilirubin Dipstick Negative (Negative); Urine Clarity Cloudy (Clear); Urine Urobilinogen Normal (Normal)
[2023-01-17 19:00] LABS: Red Blood Cells-Urine > 100 SEEN /hpf (0-5)
[2023-01-17 19:01] LABS: White Blood Cells 5-10 SEEN /hpf (0-5)
[2023-01-17 19:02] LABS: Anion Gap 4 (5-15); BUN 11 mg/dL (7-18); BUN/Creat Ratio 15.2 RATIO (10-20); Bacteria 1+ /hpf (None Seen); Calcium,Total 9.5 mg/dL (8.5-10.1); Chloride 107 mmol/L (98-107); Creatinine, Serum 0.72 mg/dL (0.55-1.02); EST Glomerular Filtration Rate 97 mL/min (>60); Est Glom Filt Rate - Afr Amer 118 mL/min (>60); Estimated Creatinine Clearance 136.42 ml/min; Glucose 93 mg/dL (74-106); Potassium 3.9 mmol/L (3.5-5.1); Sodium Level 135 mmol/L (136-145); Squamous Epithelial Cells - UA 0-5 SEEN /hpf (5-10)
[2023-01-17 19:03] LABS: Internal QC Validated? YES +Cl - CLEAR BKGD; Pregnancy, Serum, hCG Quali. NEGATIVE Negative
[2023-01-17 19:09] VITALS: BP 191/118; PULSE 67; RESP 18; TEMP 36.6; O2SAT 97
[2023-01-17] MEDS: Ketorolac 15 MG/ML Vial IV (19:26)
[2023-01-17] MEDS: 0.9% Normal Saline 1,000 ML 1000 ML IV (19:26)
[2023-01-17] MEDS: Ondansetron 4 MG/2 ML Vial IV (19:27)
[2023-01-17 20:03] VITALS: BP 150/98; PULSE 75; RESP 15; O2SAT 94
[2023-01-17] MEDS: Morphine 4 MG/ML Syringe IV (20:16)
== END 2023-01-17 20:31 | disposition home or self-care (01) ==
PROVIDERS: Emergency Provider Emergency Medicine; PCP Internal Medicine; Visit Provider Emergency Medicine
DX: N13.2 Hydronephrosis with renal and ureteral calculous obstruction (principal); R31.9 Hematuria, unspecified; R11.0 Nausea; I10 Essential (primary) hypertension
CPT/HCPCS: 74176; 80048; 81001; 84703; 85025; 96361; 96374; 96375; 99283; J2405

== ENCOUNTER → 2025-03-29 | Outpatient (CLI) | payer BC, SELFPAY ==
--- NOTE | 2025-03-29 07:26 | BI_ITS ---
EXAM: SCRN MAMM (CAD)W/CORDELIA BILAT DATE: 03/29/2025 CLINICAL HISTORY: F, Age 40 y/o , HIGH RISK FAMILY HX. WANTS NOW BEFORE 40Y TECHNIQUE: SCRN MAMM (CAD)W/CORDELIA BILAT COMPARISON: Baseline examination, no priors. FINDINGS: TISSUE DENSITY: There are scattered areas of fibroglandular density. Bilateral Breast Mammographic Findings: No significant masses, calcifications or other abnormalities are identified. BI/SCRN MAMM (CAD)W/CORDELIA BILAT IMPRESSION: There is no mammographic evidence of malignancy. OVERALL FINAL ASSESSMENT BI-RADS 1: NEGATIVE. RECOMMENDATION: Routine annual follow-up in 1 Year A letter with findings and recommendations will be mailed to the patient. Reading Location: [id number]
--- OUTSIDE RECORDS SUMMARY | 2025-03-29 07:29 | XMS RPT_ITS | CCD ---
Author Organization [facility] Care Team Providers Care Electrician Underground Name Role Phone Leon South Unavailable NASEEM DICKINSON Unavailable Unavaila LEON Jesus Unavailable Unavailable AKBAR TUBBS Unavailable Unavailable ADRIANNA MCKENNA Unavailable Unavai LEON Mayorga Unavailable Unavailable Zenaida Stacy PA-C Primary Care Provider [phone] Zenaida Stacy PA-C Primary Care Provider [phone] Dr. Leon South Primary Care Provider Dr. Leon South Referring Provider [phone] Rc CORBETT, VOCATIONAL REHABILITATION TEACHER-C Sima Humphries Attending Provider [phone] Dr. Vijay Godinez Primary Care Provider Dr. Vijay Godinez Referring Provider [phone] FriendDr[address] Gutierrez Attending Provider [phone] Gutierrez Other Provider Zenaida Stacy PA-C Primary Care Provider [phone] SUZI WATKINS Referring Unavailable Zenaida STACY Primary Care Unavailable KEAGAN STILL Attending Unavailable ADRIANNA FOUNTAIN Referring Unavailable Zenaida STACY Primary Care Unavailable VIJAY GODINEZ MD Primary Care Unavailable VIJAY GODINEZ MD Consulting Unavailable VIJAY GODINEZ MD Attending Unavailable VIJAY GODINEZ MD Admitting Unavailable PROVIDER, UNKNOWN Consulting Unavailable PROVIDER, UNKNOWN Consulting Unavailable PROVIDER, UNKNOWN Consulting Unavailable Zenaida Stacy PA-C Primary Care Provider [phone] Regis FAJARDO, Madhu Cobb Primary Care Provider Unavailable Gabeagen SECURITY CONSULTANT.ENVIRONMENTAL REMEDIATION ENGINEER, Chio Unavailable Grzegorz SECURITY CONSULTANT.RUBINA, Sally Arias Unavailable Vijay Godinez MD Primary Care Provider JACLYN IVORY Referring Unavailable LATOUF, BUTROS Primary Care Unavailable JACLYN IVORY Attending Unavailable MADHU STACY Primary Care Unavailable SIMA MILLIGAN Attending Unavailable MADHU STACY Primary Care Unavailable LATOUServando, BUTROS Primary Care Unavailable JACLYN IVORY Attending Unavailable JACLYN IVORY Attending Unavailable HERBERT, BUTROS Primary Care Unavailable JACLYN IVORY Attending Unavailable [facility] Primary Care Unavailable Robbin Ma Referring Unavailable Robbin Ma Attending Unavailable Herbert, Butros Primary Care Unavailable Medications Current Medications Medication Drug Class(es) Dates Sig (Normalized) Sig (Original) acetaminophen 325 mg / oxyCODONE hydrochloride 5 mg oral tablet (1 source) Opioid Agonist Start: 01-18-20 23 take 1 tablet by mouth every six hours as needed Oxycodone-Acetaminophe n Active 1 TABLET PO EVERY 6 HOURS NEEDED 12 3 2023 amLODIPine 10 mg oral tablet (20 sources) Dihydropyridine Calcium Channel Kisha Start: 03-19-20 19 End: 08-17-19 23 take 1 tablet by mouth once daily amLODIPine (NORVASC) 10 mg tablet Take 1 tablet by mouth once daily. 90 tablet 1 08/17/2022 Active Comment on above: Take 1 tablet by lul once daily. hydroCHLOROthiazide 25 mg oral tablet (2 sources) Thiazide Diuretic take 1 tablet by mouth once daily hydroCHLOROthiazide (HYDRODIURIL) 25 MG tablet Take 25 mg by mouth daily. Active ketoconazole 20 mg/ml medicated shampoo (7 sources) Azole Antifungal Start: 05-31-20 24 ketoconazole (NIZORAL) 2 % shampoo WASH THE SCALP ONCE EVERY OTHER WASH, LETTING IT LATHER FOR 3-5 MINUTES BEFORE RINSING 05/31/2024 Active labetalol hydrochloride 200 mg oral tablet (20 sources) beta-Adrenergic Kisha Start: 03-25-20 22 take 1 tablet by mouth three times daily labetalol (TRANDATE) 200 mg tablet Indications: Hypertension, essential Take 1 tablet by mouth three times daily. 90 tablet 1 03/25/2022 Active Start: 11-04-2020 End: 03-22-2022 take 1 tablet by mouth three times daily labetalol (TRANDATE) 200 mg tablet Indications: Hypertension, essential Take 1 tablet by mouth three times daily. 90 tablet 1 11/04/2020 03/22/2022 Discontinued Start: 03-19-2019 End: 04-09-2022 take 400 mg by mouth three times daily Labetalol Discontinued 400 MG PO THREE TIMES A DAY March 19, 2019 12:00am April 09, 2022 8:48am Comment on above: Take 1 tablet by lul th three times daily. 24 hr metFORMIN hydrochloride 500 mg extended release oral tablet (5 sources) Biguanide Start: End: take 34-34.9 tablets by mouth twice daily at mealtime metFORMIN ER (GLUCOPHAGE XR) 500 mg 24 hr tablet Indications: Hyperinsulinemia , Metabolic syndrome , Class 1 obesity with serious comorbidity and body mass index (BMI) of 34.0 to 34.9 in adult, unspecified obesity type Take 2 tablets by mouth two times a day with meals. 360 tablet 1 10/31/2024 04/29/2025 Active 24 hr metoprolol succinate 100 mg extended release oral tablet (2 sources) beta-Adrenergic Kisha take 1 tablet by mouth once daily metoprolol succinate (TOPROL-XL) 100 MG 24 hr tablet Take 100 mg by mouth daily. Active naproxen 500 mg oral tablet (1 source) Nonsteroidal Anti-inflammatory Drug Start: 023 take 1 tablet by mouth twice daily Naproxen (Naprosyn) 500 mg tablet Active 500 MG PO TWICE A DAY 2023 12:00am omeprazole 40 mg delayed release oral capsule (20 sources) Proton Pump Inhibitor Start: 022 take 1 capsule by mouth twice daily before mealtime omeprazole (PRILOSEC) 40 mg capsule Take 1 capsule by mouth twice daily before meals. 180 capsule 1 12/25/2021 Active Start: 09-24-2021 End: 12-25-2021 take 1 capsule by mouth once daily omeprazole (PRILOSEC) 40 mg capsule Take 1 capsule by mouth once daily. 30 capsule 2 09/24/2021 12/25/2021 Discontinued Start: 03-02-2021 End: 12-25-2021 take 1 capsule by mouth once daily before breakfast omeprazole (PRILOSEC) 20 mg capsule Take 1 capsule by mouth daily before breakfast. 1/2 hr before meal. 90 capsule 2 03/02/2021 12/25/2021 Discontinued Comment on above: Take 1 capsule by mo uth daily before breakfast. 1/2 hr before meal. Take 1 capsule by mo uth once daily. Take 1 capsule by mo uth twice daily before meals. ondansetron 4 mg disintegrating oral tablet (1 source) Serotonin-3 Receptor Antagonist Start: 01-18-20 take 4 mg by mouth every eight hours as needed Ondansetron Active 4 MG PO EVERY 8 HOURS NEEDED 2023 12:00am tamsulosin hydrochloride 0.4 mg oral capsule (1 source) alpha-Adrenergic Kisha Start: 01-18-20 take 1 capsule by mouth once daily Tamsulosin (Flomax) 0.4 mg capsule Active 0.4 MG PO DAILY 2023 12:00am topiramate 25 mg oral tablet (1 source) Start: 01-11-20 End: 04-10-20 take 34-34.9 tablets by mouth twice daily topiramate (TOPAMAX) 25 mg tablet Indications: Hypertension, essential , GERD without esophagitis , Hyperinsulinemia , Class 1 obesity with serious comorbidity and body mass index (BMI) of 34.0 to 34.9 in adult, unspecified obesity type Take 1 tablet by mouth two times a day. 180 tablet 01/10/2025 04/10/2025 Active ursodiol 250 mg oral tablet (8 sources) Bile Acid Start: 09-30-19 End: 01-12-20 take 250 mg by mouth twice daily Ursodiol Active 250 MG PO TWICE A DAY 180 September 30, 2022 1:00am Comment on above: Take 250 mg by mouth twice daily. Completed/Discontinued Medications Medication Drug Class(es) Dates Sig (Normalized) Sig (Original) aspirin 81 mg delayed release oral tablet (4 sources) Platelet Aggregation Inhibitor, Nonsteroidal Anti-inflammatory Drug Start: 03-19-2019 End: 03-22-2019 take 81 mg by mouth once daily Aspirin Discontinued 81 MG PO DAILY March 19, 2019 12:00am March 22, 2019 8:15am ferrous sulfate 325 mg oral tablet (4 sources) Start: 03-22-2019 End: 06-17-2022 take 325 mg by mouth once daily Ferrous Sulfate Discontinued 325 MG PO DAILY@1200 March 22, 2019 12:00am June 17, 2022 11:38am Vit,[id number]-C olic (4 sources) Start: 03-19-2019 End: 04-09-2022 take 1 tablet by mouth once daily Vit,[id number]-Cq lic Discontinued 1 TABLET PO DAILY March 19, 2019 12:00am April 09, 2022 8:48am Start: 03-19-2019 End: 04-09-2022 take 1 tablet by mouth once daily Vit,[id number]-Duclr Discontinued 1 TABLET PO DAILY March 18, 2019 11:00pm April 09, 2022 7:48am Problems Active Problems Problem Classification Problem Date Documented Da te Episodic/Chronic Abdominal hernia (2 sources) Gastroesophageal reflux disease with hiatal hernia; Translations: [Diaphragmatic hernia without obstruction or gangrene] 02-24-2023 Episodic Calculus of urinary tract (1 source) Kidney stone; Translations: [Calculus of kidney] 2023 Episodic Esophageal disorders (20 sources) Gastroesophageal reflux disease without esophagitis; Translations: [Gastro-esophageal reflux disease without esophagitis] Onset: 2 12-25-2021 Chronic Essential hypertension (20 sources) Essential (primary) hypertension; Translations: [Essential hypertension] Onset: 8 10-20-2017 Chronic Gastritis and duodenitis (5 sources) Bile-induced gastritis; Translations: [Other gastritis without bleeding] 09-10-2022 Episodic Genitourinary symptoms and ill-defined conditions (1 source) Blood in urine; Translations: [Hematuria, unspecified] 2023 Episodic Immunizations and screening for infectious disease (5 sources) Requires a tetanus booster; Translations: [Encounter for immunization] 02-07-2016 Episodic Nausea and vomiting (1 source) Nausea; Translations: [Nausea] 2023 Episodic Other disorders of stomach and duodenum (2 sources) Angiodysplasia of stomach and duodenum without bleeding; Translations: [Angiodysplasia of stomach and duodenum without mention of hemorrhage] 09-10-2022 Episodic Other disorders of stomach and duodenum (1 source) Delayed gastric emptying; Translations: [Functional dyspepsia] Episodic Other disorders of stomach and duodenum (1 source) Functional dyspepsia; Translations: [Delayed gastric emptying] Onset: 3 Episodic Other endocrine disorders (8 sources) Hyperinsulinism; Translations: [Other hypoglycemia] Onset: 5 10-30-2024 Chronic Other endocrine disorders (1 source) Other hypoglycemia; Translations: [Hyperinsulinemia] Onset: 5 Chronic Other gastrointestinal disorders (3 sources) Esophageal dysphagia; Translations: [Other dysphagia] Episodic Other gastrointestinal disorders (1 source) Other dysphagia; Translations: [Esophageal dysphagia] Onset: 3 Episodic Other injuries and conditions due to external causes (4 sources) Injury of finger; Translations: [Unspecified injury of right wrist, hand and finger(s), initial encounter] 03-19-2019 Episodic Other liver diseases (20 sources) Fatty (change of) liver, not elsewhere classified; Translations: [Nonalcoholic fatty liver disease] Onset: 3 09-30-2022 Chronic Other liver diseases (6 sources) Elevated liver enzymes level; Translations: [Abnormal levels of other serum enzymes] Episodic Other nutritional; endocrine; and metabolic disorders (1 source) Body mass index 30+ - obesity; Translations: [Body mass index (BMI) 37.0-37.9, adult] Chronic Other nutritional; endocrine; and metabolic disorders (1 source) Obesity caused by energy imbalance; Translations: [Other obesity due to excess calories] 02-24-2023 Chronic Other nutritional; endocrine; and metabolic disorders (9 sources) Obesity; Translations: [Class 1 obesity with serious comorbidity and body mass index (BMI) of 34.0 to 34.9 in adult, unspecified obesity type] Onset: 5 10-02-2024 Chronic Other nutritional; endocrine; and metabolic disorders (8 sources) Metabolic syndrome X; Translations: [Metabolic syndrome] Onset: 5 10-31-2024 Chronic Other nutritional; endocrine; and metabolic disorders (1 source) Metabolic syndrome; Translations: [Metabolic syndrome] Onset: 5 Chronic Other nutritional; endocrine; and metabolic disorders (1 source) Body mass index (BMI) 34.0-34.9, adult; Translations: [Class 1 obesity with serious comorbidity and body mass index (BMI) of 34.0 to 34.9 in adult, unspecified obesity type] Onset: 5 Chronic Other and delivery including normal (4 sources) Vaginal delivery; Translations: [Encounter for full-term uncomplicated delivery] 06-17-2022 Episodic Other screening for suspected conditions (not mental disorders or infectious disease) (6 sources) Cancer cervix screening status; Translations: [Encounter for screening for malignant neoplasm of cervix] Onset: 5 06-13-2024 Episodic Unclassified (1 source) Class 1 obesity with serious comorbidity and body mass index (BMI) of 34.0 to 34.9 in adult, unspecified obesity type; Translations: [Class 1 obesity with serious comorbidity and body mass index (BMI) of 34.0 to 34.9 in adult, unspecified obesity type] Onset: 5 Past or Other Problems Problem Classification Problem Date Documented Date Episodic/Chronic Administrative/social admission (12 sources) Patient encounter status; Translations: [Dietary counseling and surveillance] Onset: 02-04-2017 Resolved: 04-04-2019 Episodic Bacterial infection; unspecified site (7 sources) Bacteria present; Translations: [Streptococcus, group B, as the cause of diseases classified elsewhere] Onset: 03-02-2019 Resolved: 04-04-2019 04-04-2019 Episodic Blindness and vision defects (4 sources) Other visual disturbances; Translations: [Unspecified visual disturbance] Onset: 08-30-2017 Episodic Diabetes mellitus without complication (2 sources) Impaired fasting glycemia; Translations: [Impaired fasting glucose] Onset: 10-02-2024 10-02-2024 Episodic Hypertension complicating ; childbirth and the puerperium (7 sources) Essential hypertension complicating AND/OR reason for care during ; Translations: [Pre-existing essential hypertension complicating , unspecified trimester] Onset: 08-31-2018 Resolved: 04-04-2019 04-04-2019 Chronic Malaise and fatigue (20 sources) Fatigue; Translations: [Other fatigue] Onset: 09-10-2022 09-10-2022 Episodic Other complications of (7 sources) Supervision of resulting from assisted reproductive technology, unspecified trimester; Translations: [ resulting from assisted reproductive technology] Onset: 08-31-2018 Resolved: 04-04-2019 04-04-2019 Episodic Other disorders of stomach and duodenum (20 sources) Vascular ectasia of gastric antrum; Translations: [Angiodysplasia of stomach and duodenum without bleeding] Onset: 09-23-2022 09-10-2022 Episodic Other disorders of stomach and duodenum (20 sources) Gastroparesis syndrome; Translations: [Gastroparesis] Onset: 10-23-2022 09-30-2022 Episodic Other disorders of stomach and duodenum (1 source) Gastroparesis; Translations: [Gastroparesis] Onset: 10-23-2022 Episodic Residual codes; unclassified (7 sources) FH: Congenital heart disease; Translations: [Family history of other congenital malformations, deformations and chromosomal abnormalities] Onset: 08-31-2018 Resolved: 04-04-2019 04-04-2019 Episodic Results Test Name Value Interpretation Reference Range Facility [facility] 01-10-2025 CNOV Office Visit (OBGYWZenaida ) FOREST NGUYEN ([id number]) 1985 F Date Time Provider Department 01/10/25 7:30 AM JACLYN IVORY During your visit today, we recorded the following information about you: Pulse Respiration Blood pressure Weight 94/minute 16/minute 132/88 80.3 kg Jaclyn Ivory APRN.ENVIRONMENTAL REMEDIATION ENGINEER 01/10/2025 8:19 AM Addendum Diego protein bar - 28g protein 3 net [...] protein AND 2g carb Two Good Lowfat Guyanese Yogurt, Lower Sugar - 12g protein AND [...] oz is 28 gm protein Beef, Chicken, Grayson, Pork, Duran 1 oz 7g Fish, Tuna [...] (not a meal replacement) Protein AND carbs Beef/Grayson Jerky 1 oz dried 10-15g protein - [...] 8 oz -13g protein AND 6g car Guyanese yogurt Full Fat Guyanese Yogurt 1 cup - 20.4g protein AND 9.1g carb 2% Guyanese Yogurt 1 cup - 22.7g protein AND 9.1g carb 0% (fat-free) Guyanese Yogurt - 1 cup 24g protein AND 9.3g carb Aldi Protein Guyanese yogurt single svg - 13/g15g protein AND 7g carb Chobani Zero Sugar single svg: - 12g protein AND 5g carb Dannon Guyanese Light + Fit 1 single svg - 12g protein AND 9g carb Oikos Pro single svg - 20g protein AND 8g carb Oikos Triple Zero Guyanese Nonfat Yogurt 1 single svg - 15g protein AND 7g carb :ratio, KETO Friendly Dairy Snack 1 single svg - 15g protein AND 2g carb :ratio Protein 1 single svg - 25g protein AND 8g carb Two Good Lowfat Guyanese Yogurt, [place], Lower Sugar - 12g protein AND 2g carb Yoplait Protein 1 single svg 15g protein AND 5g carb Dairy Free - [place] unsweetened Guyanese almond/soy 15g protein AND 3g carb Dairy Free - True Goodness by [facility] coconut-based yogurt alternative 1 g protein [...] Cream Cheese 1.7g protein AND 1.2g carb Looking for [employer] whipped Guyanese cream cheese (WM) 2 T 3g protein 2g carb Feta 4g protein AND 1.2g carb Mozzarella 6.3g protein AND 0.6g carb Parmesan 10g protein AND 0.9g carb Northern Irish 7.6g protein AND 1.5g carb Cottage Cheese 1/2 c Breakstone 2% 13g protein 7g carb Kayleigh 2% 13g protein 5 g carb Good Culture 2% 14g protein 3g carb Lactaid 13g protein 5g carb Ma?s Low Fat 12g protein AND 4g carb Legumes Lentils ? cup 9g protein AND 20g carb Ann beans ? cup 7g protein AND 20g carb Kidney, Black, [place], Cannellini beans ? cup 8g protein AND 20g carb Chickpeas 1/2 c 6g protein AND 15g carb Soybeans 1/2 c 14g complete protein AND 8.5g carb A (more content not included)... Normal [facility] CNOVon 11-29-2024 CNOV Office Visit (KHARI ) FOREST NGUYEN ([id number]) 1985 F Date Time Provider Department 11/29/24 1:30 PM JACLYN IVORY During your visit today, we recorded the following information about you: Pulse Blood pressure Weight Last Period 92/minute 152/97 78.5 kg 11/16/24 Jaclyn Ivory APRN.[employer] 11/29/2024 2:05 PM Addendum - Whole food [...] oz is 28 gm protein Beef, Chicken, Grayson, Pork, Duran 1 oz 7g Fish, Tuna [...] protein AND 2 carb Protein AND carbs Beef/Grayson Jerky 1 oz dried 10-15g protein - [...] oz -13 g protein AND 6g carb Guyanese yogurt Full Fat Guyanese Yogurt 1 cup - 20.4g protein AND 9.1g carb 2% Guyanese Yogurt 1 cup - 22.7g protein AND 9.1g carb 0% (fat-free) Guyanese Yogurt - 1 cup 24g protein AND 9.3g carb Aldi Protein Guyanese yogurt single svg - 13/g15g protein AND 7g carb Chobani Zero Sugar single svg: - 12g protein AND 5g carb Chobani drinkable 15g, 20g and 30g protein AND 18 carb Dannon Guyanese Light + Fit 1 single svg - 12g protein AND 9g carb Oikos Pro single svg - 20g protein AND 8g carb Oikos Triple Zero Guyanese Nonfat Yogurt 1 single svg - 15g protein AND 7g carb Oikos Pro drinkable yogurt 1 single svg - 23 g protein AND 8 g carb :ratio, KETO Friendly Dairy Snack 1 single svg - 15g protein AND 2g carb :ratio Protein 1 single svg - 25g protein AND 8g carb Two Good Lowfat Guyanese Yogurt, [place], Lower Sugar - 12g protein AND 2g carb Yoplait Protein 1 single svg 15gm protein AND 5gm carb Dairy Free - [place] unsweetened Guyanese almond/soy 15 gm protein AND 3 gm [...] carb Parmesan 10g protein AND 0.9g carb Northern Irish 7.6g protein AND 1.5g carb Cottage Cheese 1/2 c Breakstone 2% 13g protein 7g carb Kayleigh 2% 13g protein 5 g carb Good Culture 2% 14g protein 3g carb Ma?s Low Fat 12g protein AND 4g carb Legumes Lentils ? cup 9g protein AND 20g carb Ann beans ? cup 7g protein AND 20g carb Kidney, Black, [place], Cannellini beans ? cup 8g protein AND 20g carb Soybeans 1/2 c 14g complete protein AND 8.5g carb [place] milk, unsweetened 8 oz 1g protein AND 2g carb Soy milk 8 oz 3.5g protein AND 1.6g carb Tofu 1/2 cup 10g protein AND 2.3g carb Peanut butter, natural 2 Tbsp 7-8g protein AND 4g net carbs, 190 calories PB2 powder 2 Tbsp 6g protein AND 5g carb Nuts and Seeds per oz Almonds - 5.9g protein AND 6.1g carb [place] Nuts - 4.0g protein AND 3.4g carb [...] Seeds - 6.9g protein AND 5g carb Simpson Seeds - 5.8g protein AND 5.6g carb Walnuts - 4.3g protein AND 3.8g carb Edamame Beans (soyb (more content not included)... Normal [facility] CNOVon 10-31-2024 CNOV Office Visit (OBGYWM ) WENDYFOREST ([id number]) 1985 F Date Time Provider Department 10/31/24 7:00 AM JACLYN IVORY During your visit today, we recorded the following information about you: Pulse Blood pressure Weight Last Period 98/minute 142/88 78.9 kg 10/17/24 Jaclyn Ivory APRN.ENVIRONMENTAL REMEDIATION ENGINEER 10/31/2024 11:19 AM Signed Some documentation from [...] shake at 0730 makes her hungry around [id number] Stopped coffee in am and sweet tea [...] sweet tea Subway - 6 in wheat Latvian parra veg sweet tea Red Lobster - shrimp scampi, 2 biscuits, occas Anshul salad, sweet tea [place] - chicken fingers, fries or smothered grilled [...] of sugar sweetened beverages, and skip meals. 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 Not hungry, gets full easily, stays full for up to 6 hours. 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 no Work-related activity:Sedentary. 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 [...] mouth three times daily. 90 tablet 1 (more content not included)... Normal [facility] CBC panel Auto (Bld)on 10-02 Erythrocyte distribution width (RBC) [Ratio] 14.9 % 11.5 - 15.0 % [facility] Hematocrit (Bld) [Volume fraction] 40.1 % 36.0 - 46.0 % [facility] Hemoglobin (Bld) [Mass/Vol] 13.1 g/dL 11.5 - 15.5 g/dL [facility] Interpretation and review of laboratory results Abnormal [facility] MCH (RBC) [Entitic mass] 23.9 pg Low 26. 0 - 34.0 pg [facility] MCHC (RBC) [Mass/Vol] 32.7 g/dL 30.5 - 36.0 g/dL [facility] MCV (RBC) [Entitic vol] 73 fL Low 80.0 - 100.0 fL [facility] Nucleated RBC (Bld) [#/Vol] NINF [facility] Platelet mean volume (Bld) [Entitic vol] 10.1 fL 9.0 - 12.7 fL [facility] Platelets (Bld) [#/Vol] 266 10*3/uL [facility] RBC (Bld) [#/Vol] 5.49 10*6/uL High 3.90 - 5.20 m/uL [facility] WBC (Bld) [#/Vol] 7.44 10*3/uL [facility] Erythrocyte distribution width (RBC) [Ratio] 14.9 % Normal 11.5-15.0 [facility] Comment on above: Order Comment: Speci men Type: FLUID SPECIMEN Ordering Facility: [facility] Address: [address] [place] [address] Performed By: #### L [id number] #### [facility] CLIA [id number] [address] [place] [address] [place] Hematocrit (Bld) [Volume fraction] 40.1 % Normal 36.0-46.0 [facility] Comment on above: Order Comment: Speci men Type: FLUID SPECIMEN Ordering Facility: [facility] Address: [address] [place] [address] Performed By: #### L [id number] #### [facility] CLIA [id number] [address] [place] [address] [place] Hemoglobin (Bld) [Mass/Vol] 13.1 g/dL Normal 11.5-15. 5 [facility] Comment on above: Order Comment: Speci men Type: FLUID SPECIMEN Ordering Facility: [facility] Address: [address] [place] [address] Performed By: #### L [id number] #### [facility] CLIA [id number] [address] [place] [address] [place] MCH (RBC) [Entitic mass] 23.9 pg Low 26.0-34.0 [facility] Comment on above: Order Comment: Speci men Type: FLUID SPECIMEN Ordering Facility: [facility] Address: [address] [place] [address] Performed By: #### L [id number] #### [facility] CLIA [id number] [address] [place] [address] [place] MCHC (RBC) [Mass/Vol] 32.7 g/dL Normal 30.5-36.0 [facility] Comment on above: Order Comment: Speci men Type: FLUID SPECIMEN Ordering Facility: [facility] Address: [address] [place] [address] Performed By: #### L [id number] #### [facility] CLIA [id number] [address] [place] [address] [place] MCV (RBC) [Entitic vol] 73.0 fL Low 80.0-100.0 [facility] Comment on above: Order Comment: Speci men Type: FLUID SPECIMEN Ordering Facility: [facility] Address: [address] [place] [address] Performed By: #### L [id number] #### [facility] CLIA [id number] [address] [place] [address] [place] Nucleated RBC (Bld) [#/Vol] 10*3/uL Normal <0.01 [facility] Comment on above: Order Comment: Speci men Type: FLUID SPECIMEN Ordering Facility: [facility] Address: [address] [place] [address] Performed By: #### L [id number] #### [facility] CLIA [id number] [address] [place] [address] [place] Platelet mean volume (Bld) [Entitic vol] 10.1 fL Normal 9.0-12.7 [facility] Comment on above: Order Comment: Speci men Type: FLUID SPECIMEN Ordering Facility: [facility] Address: [address] [place] [address] Performed By: #### L [id number] #### [facility] CLIA [id number] [address] [place] [address] [place] Platelets (Bld) [#/Vol] 266 10*3/uL Normal 150-400 [facility] Comment on above: Order Comment: Speci men Type: FLUID SPECIMEN Ordering Facility: [facility] Address: [address] [place] [address] Performed By: #### L [id number] #### [facility] CLIA [id number] [address] [place] [address] [place] RBC (Bld) [#/Vol] 5.49 10*6/uL High 3.90-5.20 [facility] Comment on above: Order Comment: Speci men Type: FLUID SPECIMEN Ordering Facility: [facility] Address: [address] [place] [address] Performed By: #### L [id number] #### [facility] CLIA [id number] [address] [place] [address] [place] WBC (Bld) [#/Vol] 7.44 10*3/uL Normal 3.70-11.00 [facility] Comment on above: Order Comment: Speci men Type: FLUID SPECIMEN Ordering Facility: [facility] Address: [address] [place] [address] Performed By: #### L [id number] #### [facility] CLIA [id number] [address] [place] [address] [place] CNOVon 10-02-2024 CNOV Office Visit (OBGYWM ) FOREST NGUYEN ([id number]) 1985 F Date Time Provider Department 10/02/24 8:00 AM JACLYN IVORY During your visit today, we recorded the following information about you: Pulse Blood pressure Weight Height 97/minute 154/98 77.1 kg 1.5 m Last Period 09/17/24 Jaclyn Ivory APRN.[facility] [employer] 10/02/2024 10:52 AM Signed Patient Summary: Forest Nguyen is a 39 year old female with [...] sweet tea [employer] - 6 in wheat Latvian parra veg sweet tea [employer] - shrimp scampi, 2 biscuits, occas Anshul salad, sweet tea [employer] [place] [employer] - chicken fingers, fries or smothered grilled [...] of sugar sweetened beverages, and skip meals. 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 Not hungry, gets full easily, stays full for up to 6 hours. Eating Disorder no Cravings: salty, crunchy Sleep Duration: 6-7 hours. 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 [...] diarrhea, Tirzepatide was not effective and costly. Maude (more content not included)... Normal [facility] Comprehensive metabolic 2000 panelOrdered By: Renetta Duran on 10-02-2024 Albumin [Mass/Vol] 4.6 g/dL 3.9 - 4.9 g/dL [facility] ALP [Catalytic activity/Vol] 74 U/L 34 - 123 U/L [facility] ALT [Catalytic activity/Vol] 26 U/L 7 - 38 U/L [facility] Anion gap [Moles/Vol] 12 mmol/L 8 - 15 mmol/L [facility] AST [Catalytic activity/Vol] 19 U/L 13 - 35 U/L [facility] Bilirubin [Mass/Vol] 0.2 mg/dL 0.2 - 1 .3 mg/dL [facility] Calcium [Mass/Vol] 9.7 mg/dL 8.5 - 10. 2 mg/dL [facility] Chloride [Moles/Vol] 104 mmol/L 98 - 10 7 mmol/L [facility] CO2 [Moles/Vol] 21 mmol/L Low 22 - 30 mmol/L [facility] Creatinine [Mass/Vol] 0.59 mg/dL 0.58 - 0.96 mg/dL [facility] GFR/1.73 sq M.predicted among non-blacks MDRD (S/P/Bld) [Vol rate/Area] 119 mL/min/{1.73_m2} - [facility] Comment on above: Estimated Glomerular Filtration Rate (eGFR) is calculated using the 2020 CKD-EPI creatinine equation. This equation utilizes serum creatinine, sex, and age as parameters. The creatinine assay has traceable calibration to isotope dilution-mass spectrometry. Refer to KDIGO guidelines for clinical interpretation. In patients with unstable renal function, e.g. those with acute kidney injury, the eGFR may not accurately reflect actual GFR. Glucose [Mass/Vol] 97 mg/dL 74 - 99 mg/dL [facility] Comment on above: The [place] Diabete s Association (ADA) provides guidance for cutoff values [...] Standards of Medical Care in Diabetes 2016, [place] Diabetes Association. Diabetes Care. 2016.39(Suppl 1). Interpretation and review of laboratory results Abnormal [facility] Potassium [Moles/Vol] 3.8 mmol/L 3.7 - 5.1 mmol/L [facility] Protein [Mass/Vol] 7.6 g/dL 6.3 - 8.0 g/dL [facility] Sodium [Moles/Vol] 137 mmol/L 136 - 144 mmol/L [facility] Urea nitrogen [Mass/Vol] 15 mg/dL 7 - 21 mg/dL [facility] Comprehensive metabolic 2000 panelon 10-02-2024 Albumin [Mass/Vol] 4.6 g/dL Normal 3.9-4.9 [facility] Comment on above: Order Comment: Speci pretty Type: FLUID SPECIMEN Ordering Facility: [facility] Address: [address] [place] [address] Performed By: #### L [id number] #### [facility] CLIA [id number] [address] [place] [address] [place] ALP [Catalytic activity/Vol] 74 U/L Normal 34-123 [facility] Comment on above: Order Comment: Shahnazi men Type: FLUID SPECIMEN Ordering Facility: [facility] Address: [address] [place] [address] Performed By: #### L [id number] #### [facility] CLIA [id number] [address] [place] [address] [place] ALT [Catalytic activity/Vol] 26 U/L Normal 7-38 [facility] Comment on above: Order Comment: Shahnazi men Type: FLUID SPECIMEN Ordering Facility: [facility] Address: [address] [place] [address] Performed By: #### L [id number] #### [facility] CLIA [id number] [address] [place] [address] [place] Anion gap [Moles/Vol] 12 mmol/L Normal 8-15 [facility] Comment on above: Order Comment: Speci men Type: FLUID SPECIMEN Ordering Facility: [facility] Address: [address] [place] [address] Performed By: #### L [id number] #### [facility] CLIA [id number] [address] [place] [address] [place] AST [Catalytic activity/Vol] 19 U/L Normal 13-35 [facility] Comment on above: Order Comment: Speci men Type: FLUID SPECIMEN Ordering Facility: [facility] Address: [address] [place] [address] Performed By: #### L [id number] #### [facility] CLIA [id number] [address] [place] [address] [place] Bilirubin [Mass/Vol] 0.2 mg/dL Normal 0.2-1.3 [facility] Comment on above: Order Comment: Speci men Type: FLUID SPECIMEN Ordering Facility: [facility] Address: [address] [place] [address] Performed By: #### L [id number] #### [facility] CLIA [id number] [address] [place] [address] [place] Calcium [Mass/Vol] 9.7 mg/dL Normal 8.5-10.2 [facility] Comment on above: Order Comment: Speci men Type: FLUID SPECIMEN Ordering Facility: [facility] Address: [address] [place] [address] Performed By: #### L [id number] #### [facility] CLIA [id number] [address] [place] [address] [place] Chloride [Moles/Vol] 104 mmol/L Normal 98-107 [facility] Comment on above: Order Comment: Speci men Type: FLUID SPECIMEN Ordering Facility: [facility] Address: [address] [place] [address] Performed By: #### L [id number] #### [facility] CLIA [id number] [address] [place] [address] [place] CO2 [Moles/Vol] 21 mmol/L Low 22-30 [facility] Comment on above: Order Comment: Speci men Type: FLUID SPECIMEN Ordering Facility: [facility] Address: [address] [place] [address] Performed By: #### L [id number] #### [facility] CLIA [id number] [address] [place] [address] [place] Creatinine [Mass/Vol] 0.59 mg/dL Normal 0.58-0.96 [facility] Comment on above: Order Comment: Speci men Type: FLUID SPECIMEN Ordering Facility: [facility] Address: [address] [place] [address] Performed By: #### L [id number] #### [facility] CLIA [id number] [address] [place] [address] [place] Creatinine and Glomerular filtration rate.predicted panel (S/P/Bld) 119 mL/min/1.73m??? Normal >=60 [facility] Comment on above: Order Comment: Speci men Type: FLUID SPECIMEN Ordering Facility: [facility] Address: [address] [place] [address] Result Comment: Silvia mated Glomerular Filtration Rate (eGFR) is calculated using the 2020 CKD-EPI creatinine equation. This equation utilizes serum creatinine, sex, and age as parameters. The creatinine assay has traceable calibration to isotope dilution-mass spectrometry. Refer to KDIGO guidelines for clinical interpretation. In patients with unstable renal function, e.g. those with acute kidney injury, the eGFR may not accurately reflect actual GFR. Performed By: #### L [id number] #### [facility] CLIA [id number] [address] [id number] [address] [place] Glucose [Mass/Vol] 97 mg/dL Normal 74-99 [facility] Comment on above: Order Comment: Speci men Type: FLUID SPECIMEN Ordering Facility: [facility] Address: [address] [place] [address] Result Comment: The [place] Diabetes Association (ADA) provides guidance for cutoff [...] Standards of Medical Care in Diabetes 2016, [place] Diabetes Association. Diabetes Care. 2016.39(Suppl 1). Performed By: #### L [id number] #### [facility] CLIA [id number] [address] [place] [address] [place] Potassium [Moles/Vol] 3.8 mmol/L Normal 3.7-5.1 [facility] Comment on above: Order Comment: Speci men Type: FLUID SPECIMEN Ordering Facility: [facility] Address: [address] [place] [address] Performed By: #### L [id number] #### [facility] CLIA [id number] [address] [place] [address] [place] Protein [Mass/Vol] 7.6 g/dL Normal 6.3-8.0 [facility] Comment on above: Order Comment: Speci men Type: FLUID SPECIMEN Ordering Facility: [facility] Address: [address] [place] [address] Performed By: #### L [id number] #### [facility] CLIA [id number] [address] [place] [address] [place] Sodium [Moles/Vol] 137 mmol/L Normal 136-144 [facility] Comment on above: Order Comment: Speci men Type: FLUID SPECIMEN Ordering Facility: [facility] Address: [address] [place] [address] Performed By: #### L [id number] #### [facility] CLIA [id number] [address] [place] [address] [place] Urea nitrogen [Mass/Vol] 15 mg/dL Normal 7-21 [facility] Comment on above: Order Comment: Speci men Type: FLUID SPECIMEN Ordering Facility: [facility] Address: [address] [place] [address] Performed By: #### L [id number] #### [facility] CLIA [id number] [address] [place] [address] [place] HbA1c (Bld)on 10-02-2024 Average glucose Estimated from glycated hemoglobin (Bld) [Mass/Vol] 88 mg/dL Normal [facility] Comment on above: Order Comment: Shahnazi men Type: BLOOD SPECIMEN Ordering Facility: [facility] Address: [address] [place] [address] Result Comment: eAG: (Estimated average glucose) is a calculated value from HgbA1c and is door to door sales representative of the average blood glucose level in the last 2-3 month period. Performed By: #### 5 [id number] #### [facility] CLIA [id number] [address] [place] [address] [place] HbA1c (Bld) [Mass fraction] 4.7 % Normal 4.3-5.6 [facility] Comment on above: Order Comment: Shahnazi men Type: BLOOD SPECIMEN Ordering Facility: [facility] Address: [address] [place] [address] Result Comment: Amer [place] Diabetes Association guidelines indicate that patients with HgbA1c in the range 5.7-6.4% are at increased risk for development of diabetes, and intervention by lifestyle modification may be beneficial. HgbA1c greater or equal to 6.5% is considered diagnostic of diabetes. Performed By: #### 5 [id number] #### [facility] CLIA [id number] [address] [place] [address] [place] Insulin SerPl-aCncon 025 Insulin Qn 78.7 uU/mL High 2.6-24.9 [facility] Comment on above: Order Comment: Speci men Type: FLUID SPECIMEN Ordering Facility: [facility] Address: [address] [place] [address] Performed By: #### L [id number] #### [facility] CLIA [id number] [address] [place] [address] [place] Lipid 1996 panelon 5 Cholesterol [Mass/Vol] 189 mg/dL Normal <200 [facility] Comment on above: Order Comment: Speci men Type: FLUID SPECIMEN Ordering Facility: [facility] Address: [address] [place] [address] Result Comment: <200 mg/dL, Desirable 200-239 mg/dL, Borderline high >239 mg/dL, High Performed By: #### L [id number] #### [facility] CLIA [id number] [address] [place] [address] [place] Cholesterol in HDL [Mass/Vol] 50 mg/dL Normal >39 [facility] Comment on above: Order Comment: Speci men Type: FLUID SPECIMEN Ordering Facility: [facility] Address: [address] [place] [address] Result Comment: 40-5 9 mg/dL, Acceptable >59 mg/dL, High: Negative risk factor for coronary heart disease <40 mg/dL, Low: Positive risk factor for coronary heart disease Performed By: #### L [id number] #### [facility] CLIA [id number] [address] [place] [address] [place] Cholesterol in LDL [Mass/Vol] 91 mg/dL Normal <100 [facility] Comment on above: Order Comment: Speci men Type: FLUID SPECIMEN Ordering Facility: [facility] Address: [address] [place] [address] Result Comment: <100 mg/dL, Optimal 100-129 mg/dL, Near optimal/above optimal 130-159 mg/dL, Borderline high 160-189 mg/dL, High >189 mg/dL, Very high Secondary prevention optimal LDL Cholesterol levels are recommended to be < 70 mg/dL Performed By: #### L [id number] #### [facility] CLIA [id number] [address] [place] [address] [place] Cholesterol in LDL/Cholesterol in HDL [Mass ratio] 1.82 {ratio} Normal <2.54 [facility] Comment on above: Order Comment: Kathia olsen Type: FLUID SPECIMEN Ordering Facility: [facility] Address: [address] [place] [address] Result Comment: Tip acuna: 1. National Cholesterol Education Program ATP III Guideline At-A-Glance Quick Desk Reference: National Heart, Lung, and Blood Blue Grass. National Institutes of Health. 2001: NIH Publication No. 01-3305. 2. An International Atherosclerosis Society position paper: global recommendations for the management of dyslipidemia: executive summary, Atherosclerosis. 2014: 232(2):410-413. Performed By: #### L [id number] #### [facility] CLIA [id number] [address] [place] [address] [place] Cholesterol in VLDL [Mass/Vol] 48 mg/dL High <30 [facility] Comment on above: Order Comment: Kathia olsen Type: FLUID SPECIMEN Ordering Facility: [facility] Address: [address] [place] [address] Performed By: #### L [id number] #### [facility] CLIA [id number] [address] [place] [address] [place] Cholesterol non HDL [Mass/Vol] 139 mg/dL High <130 [facility] Comment on above: Order Comment: Kathia olsen Type: FLUID SPECIMEN Ordering Facility: [facility] Address: [address] [place] [address] Result Comment: <130 mg/dL, Optimal 130-159 mg/dL, Near optimal/above optimal 160-189 mg/dL, Borderline high 190-219 mg/dL, High >219 mg/dL, Very high Secondary prevention optimal non HDL Cholesterol levels are recommended to be <100 mg/dL Performed By: #### L [id number] #### [facility] CLIA [id number] [address] [place] [address] [place] Cholesterol.total/Cholester ol in HDL [Mass ratio] 3.78 {ratio} Normal <5.10 [facility] Comment on above: Order Comment: Speci men Type: FLUID SPECIMEN Ordering Facility: [facility] Address: [address] [place] [address] Performed By: #### L [id number] #### [facility] CLIA [id number] [address] [place] [address] FASTING TIME 12 hrs Normal [facility] Comment on above: Order Comment: Speci men Type: FLUID SPECIMEN Ordering Facility: [facility] Address: [address] [place] [address] Performed By: #### L [id number] #### [facility] CLIA [id number] [address] [place] [address] [place] Triglyceride [Mass/Vol] 238 mg/dL High <150 [facility] Comment on above: Order Comment: Speci men Type: FLUID SPECIMEN Ordering Facility: [facility] Address: [address] [place] [address] Result Comment: <150 mg/dL, Normal 150-199 mg/dL, Borderline high 200-499 mg/dL, High >499 mg/dL, Very high Performed By: #### L [id number] #### [facility] CLIA [id number] [address] [place] [address] [place] CNOVon 06-13-2024 CNOV Office Visit (OBGYWM ) [facility] ([id number]) 1985 F Date Time Provider Department 06/13/24 2:20 PM SIMA MILLIGAN OBGYWM During your visit today, we recorded the following information about you: Blood pressure Weight Height Last Period 164/102 79.8 kg 1.499 m 05/29/24 Sima Milligan MD 06/13/2024 2:43 PM Signed Forest [...] L1 SAB0 IAB0 Ectopic0 Multiple0 Live Births1 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 As applicable, any other physician, advance practice provider, medical student, or other health professional student that will be observing or involved in the sensitive examination for educational or training purposes was discussed with the Patient or Authorized Skills Auditor. The Patient or Authorized Skills Auditor has agreed to proceed with the sensitive [...] external genitalia normal, normal Bartholin's glands, urethra, F[place]'s glands, no vulvar lesions, no cervical lesions, [...] up one year or sooner as needed Sima Milligan MD Allergies As of Date: 06/13/2024 (No Known Allergies) Date Reviewed: 06/13/2024 Reviewed by: Sima Milligan MD - Fully Assessed Reason for Visit: Yearly Exam [187] Primary Visit Diagnosis:Encounter for gynecological examination (general) (routine) without abnormal findings (more content not included)... Normal [facility] HIGH RISK HUMAN P[place]ILL[place] DA (HPV), PCR FOR DETECTION AND GENOTYPINGon 06-13-2024 HPV 16 Ag Ql (Unsp spec) Not detected Normal Not detected [facility] Comment on above: Order Comment: Speci men Type: FLUID SPECIMEN Ordering Facility: [facility] Address: [address] [place] [address] Performed By: #### L [id number] #### [facility] CLIA [id number] [address] [place] [address] [place] HPV 18 Ag Ql (Unsp spec) Not detected Normal Not detected [facility] Comment on above: Order Comment: Speci men Type: FLUID SPECIMEN Ordering Facility: [facility] Address: [address] [place] [address] Performed By: #### L [id number] #### [facility] CLIA [id number] [address] [place] [address] [place] HPV 31+33+35+39+45+51+52+56+58+ 59+66+68 DNA VINH+probe Ql (Cvx) Not detected Normal Not detected [facility] Comment on above: Order Comment: Speci men Type: FLUID SPECIMEN Ordering Facility: [facility] Address: [address] [place] [address] Result Comment: High Risk HPV Other Type includes HPV types 31, 33, 35, 39, 45, 51, 52, 56, 58, 59, 66 and 68. Performed By: #### L [id number] #### [facility] CLIA [id number] [address] [place] [address] [place] PAP TESTon 06-13-2024 ADEQUACY Satisfactory for interpretation. Normal [facility] Comment on above: Order Comment: Speci men Type: FLUID SPECIMEN Ordering Facility: [facility] Address: [address] [place] [address] Performed By: #### L [id number] #### [facility] CLIA [id number] [address] [place] [address] [place] CASE REPORT Normal [facility] Comment on above: Order Comment: Speci men Type: FLUID SPECIMEN Ordering Facility: [facility] Address: [address] [place] [address] Result Comment: Gyne cologic Cytology Report Case: [id number] Authorizing Provider: Sima Milligan MD Collected: 06/13/2024 03:02 PM Ordering Location: OB/Gynecology Received: 06/13/2024 05:16 PM First Screen: Ada Cristobal, CT, ASCP Specimen: Pap Test, ThinPrep, Cervix Performed By: #### L [id number] #### [facility] CLIA [id number] [address] [place] [address] [place] CLINICAL HISTORY, CYTOLOGY, LAW FIRM RECEPTIONIST Routine Exam Normal [facility] Comment on above: Order Comment: Speci men Type: FLUID SPECIMEN Ordering Facility: [facility] Address: [address] [place] [place] [address] Performed By: #### L [id number] #### [facility] CLIA [id number] [address] [place] [address] STATES OF FE FINAL PERFORMING LAB Normal [facility] Comment on above: Order Comment: Speci men Type: FLUID SPECIMEN Ordering Facility: [facility] Address: [address] [place] [address] Result Comment: Tech nical component, accounts receivable processor screening performed at [facility], [address] [place], [place] [id number] CLIA# [id number] Diagnostic interpretation performed at [facility], [address] [place], [place] [id number] CLIA# [id number] Tool Crib Lead: Yefri Lomeli M.D. Performed By: #### L [id number] #### [facility] CLIA [id number] [address] [place] [address] [place] INTERPRETATION, CYTOLOGY, LAW FIRM RECEPTIONIST Normal [facility] Comment on above: Order Comment: Speci men Type: FLUID SPECIMEN Ordering Facility: [facility] Address: [address] [place] [address] Result Comment: Nega tive for intraepithelial lesion or malignancy. Performed By: #### L [id number] #### [facility] CLIA [id number] [address] [place] [address] [place] LMP 05/29/2024 Normal [facility] Comment on above: Order Comment: Speci men Type: FLUID SPECIMEN Ordering Facility: [facility] Address: [address] [place] [address] Performed By: #### L [id number] #### [facility] CLIA [id number] [address] [place] [address] [place] PAP DISCLAIMER COMMENT The Pap Smear is a screening test for cervical cancer. False negative results occur with all screening tests, emphasizing the need for rescreening at recommended intervals, and clinical correlation. Normal [facility] Comment on above: Order Comment: Speci men Type: FLUID SPECIMEN Ordering Facility: [facility] Address: [address] [place] [address] Performed By: #### L [id number] #### [facility] CLIA [id number] [address] [place] [address] [place] PAP SURVEY STATISTICIAN COMMENT This specimen has been analyzed by the ThinPrep Imaging System, an automated imaging and review system, which assists the laboratory in evaluating cells on ThinPrep Pap tests. Following automated imaging, selected renteria from every slide are reviewed by a accounts receivable processor. Normal [facility] Comment on above: Order Comment: Speci men Type: FLUID SPECIMEN Ordering Facility: [facility] Address: [address] [place] [address] Performed By: #### L [id number] #### [facility] CLIA [id number] [address] [place] [id number] [place] ANES POSTPROC EVALon 023 ANES POSTPROC EVAL HNO ID: [id number] Author: Tucker Simmons MD Service: Anesthesiology Author Type: Anesthesiologist Type: Anesthesia Postprocedure Evaluation Filed: 02/09/2023 2:50 PM Note Text: POST ANESTHESIA EVALUATION NOTE : 1985 Procedure Summary Date: 02/09/23 Room / Location: [facility] Anesthesia Start: 1329 Anesthesia Stop: 1430 Procedures: EGD - THERAPEUTIC, EUS, OR TUBE INTERVENTIONS PH HUERTA INSERT OFF MEDS Diagnosis: Gastroesophageal reflux disease without esophagitis Delayed gastric emptying NAFLD (nonalcoholic fatty liver disease) Esophageal dysphagia Scheduled Providers: Suzi Watkins DO; Keagan Still DO Responsible Provider: Tucker Simmons MD Anesthesia Type: MAC ASA Status: 2 Anesthesia Type: MAC Last Vitals Vitals Value Taken Time BP 97/63 02/09/23 1445 Temp 36.3 ?C (97.3 ?F) 02/09/23 1426 Pulse 93 02/09/23 1447 Resp 24 02/09/23 1430 SpO2 94 % 02/09/23 1447 Vitals shown include unvalidated device data. Post Anesthesia Patient Status Patient Evaluation: PACU. PACU/ICU Patient Condition: stable. Anticipated Disposition: phase 2 then home. Neurological Status: aware and responsive. Pulmonary Status: breathing comfortably on room air Airway Control: returned to baseline unsupported. Cardiovascular Status: stable. Pain Management: clinically adequate Postoperative Hydration: acceptable. Intraoperative Events: no significant anesthesia events Post Operative Nausea/Vomiting Status: no significant post operative nausea or vomiting Recommendation: continue current plan of care. Anesthesia Observations No Documentation SIGNATURE: Tucker Simmons MD PATIENT NAME: Forest Nguyen DATE: February 09, 2023 TIME: 2:49 PM CSN: [id number] [facility] ANES PRE-OPon 02-09-2023 ANES PRE-OP HNO ID: [id number] Author: Janie Meraz DO Service: Anesthesiology Author Type: Resident Type: Anesthesia Preprocedure Evaluation Filed: 02/09/2023 12:35 PM Note Text: Attestation signed by Keagan Still DO at 02/09/2023 1:06 PM ATTENDING NOTE: I have evaluated the patient and discussed the management with the resident/RADIO TOWER TECHNICIAN/AA. I reviewed the resident/RADIO TOWER TECHNICIAN/AA's note as well as the nursing notes and agree with the proposed anesthetic plan. Keagan Still DO 1:06 PM February 09, 2023 ANESTHESIOLOGY DAY OF SURGERY NOTE : 1985 Procedure Information Date/Time: 02/09/23 1315 Scheduled providers: Suzi Watkins DO; Keagan Still DO Procedures: EGD - THERAPEUTIC, EUS, OR TUBE INTERVENTIONS PH HUERTA INSERT OFF [employer] Location: [facility] Estimated body mass index is 36.36 kg/m? as calculated from the following: Height as of this encounter: 149.9 cm (4' 11). Weight as of this encounter: 81.6 kg (180 lb). Most recent hematocrit and potassium results: Hematocrit 41.4 10/26/2022 Potassium 4.2 10/26/2022 Relevant Problems CARDIO (+) Gastric antral vascular ectasia (+) Hypertension, essential GI (+) GERD without esophagitis -RENAL (+) Nonalcoholic fatty liver disease I - PHYSICAL EVALUATION AIRWAY Patient intubated: No. Tracheostomy tube not present Mallampati: III. TM distance: >3 FB. Neck ROM: full ROM without neurological symptoms. Mouth opening: adequate. Short neck: yes. Thick neck: no DENTAL Dental findings: teeth intact. II - ANESTHESIA PLAN ASA Score: 2 Anesthetic Plan: MAC The patient is not a current smoker. NPO Status: adequate Beta Kisha Monitoring Plan Post Procedure Analgesic Plan Postoperative analgesic plan: multimodal analgesia. Informed Consent Anesthetic risks, benefits, alternatives, personnel and consent discussed: yes. Patient / Responsible Constitution Party agrees to proceed: yes Patient / Surrogate agrees to blood products: blood products not planned DNR status not reviewed with patient and/or family prior to surgery. Significant changes in the patient condition since the History and Physical, not otherwise documented in primary service progress note: no. Potential Anesthesia issues that may suggest increased risk of complications or contraindication to planned procedure: potential difficult intubation. Vitals Value Taken Time BP 124/88 02/09/23 1216 Pulse 86 02/09/23 1216 Resp 16 02/09/23 1216 Temp 36.3 ?C (97.3 ?F) 02/09/23 1216 SpO2 97 % 02/09/23 1216 Outpatient Medications as of 02/09/2023 Medication Sig - amLODIPine (NORVASC) 10 mg tablet Take 1 tablet by mouth once daily. - labetalol (TRANDATE) 200 mg tablet Take 1 tablet by mouth three times daily. (Patient taking differently: Take 200 mg by mouth twice daily.) - omeprazole (PRILOSEC) 40 mg capsule Take 1 capsule by mouth twice daily before meals. Facility-Administered Medications as of 02/09/2023 Medication Dose Route Frequency - lidocaine 10 mg/mL (1 %) 1-2 mg injection (XYLOCAINE) 0.1-0.2 mL INTRADERMAL PRN - lactated ringers iv infusion 30 mL/hr INTRAVENOUS CONTINUOUS I have interviewed and examined the patient. I have reviewed the medical record and/or the pre-anesthesia evaluation, pertinent labs, and test results. This contains updated information obtained within 48 hours of Surgery/Procedure. SIGNATURE: Janie Meraz DO PATIENT NAME: Forest Nguyen DATE: February 09, 2023 TIME: 12:32 PM CSN: [id number] [facility] HISTORY PHYSICALon 3 HISTORY PHYSICAL HNO ID: [id number] Author: Trinidad Christie PA-C Service: General Surgery Author Type: Physician [employer] Pl[employer] Heater Type: HANDP Filed: 02/09/2023 12:32 PM Note Text: UPDATED HISTORY AND PHYSICAL EXAMINATION SERVICE DATE: 02/09/2023 SERVICE TIME: 12:31 PM SERVICE: General Surgery PHYSICAL EXAM MUST BE COMPLETED ON ADMISSION The History and Physical (completed in the past 30 days) has been reviewed and the patient has been examined. The contents accurately reflect the patient's condition with the following additions or revisions since the HANDP was completed. Denies chest pain, heart palpations, dizziness, fatigue, shortness of breath, cough, wheezing, headache, fever, abdominal pain, nausea, vomiting. Adequate time was taken to answer patient's questions. They have no further complaints at this time. PAST MEDICAL HISTORY Diagnosis Date Abnormal Pap smear of cervix Acid reflux HTN (hypertension) Infertility management male factor Infertility, female male factor Nonalcoholic fatty liver disease 10/23/2022 Planned procedure(s) for today is/are: EGD DIAGNOSTIC Medication reconciliation list reviewed in [facility]. Past medical history, past surgical history, social history and family history reviewed and updated in [facility]. ALLERGIES No Known Allergies See [facility] for vitals BP 124/88 Pulse 86 Temp 36.3 ?C (97.3 ?F) (Temporal) Resp 16 Ht 149.9 cm (4' 11) Wt 81.6 kg (180 lb) LMP 01/10/2023 (Exact Date) SpO2 97% BMI 36.36 kg/m? Examination indicates no changes. On examination today: Lungs: Clear to auscultation bilaterally. Heart: RRR, Normal S1/S2, No murmurs, rubs, gallops or thrills appreciated. Abdomen: BS+ in all quadrants, abdomen is soft, non tender, and without guarding. Assessment: GERD Plan: EGD DIAGNOSTIC This HANDP can be found in the Electronic Medical Record dated: 01/11/23 done by Elizabeth Dias APRN.ENVIRONMENTAL REMEDIATION ENGINEER SIGNATURE: Trinidad Christie PA-C PATIENT NAME: Forest Nguyen DATE: February 09, 2023 TIME: 12:31 PM [facility] Upper GI endoscopyon 023 Upper GI endoscopy [facility] Gastrointestinal Endoscopy Patient Name: oFrest Nguyen Procedure Date: 02/09/2023 12:21 PM Date of : 1985 Admit Type: Ambulatory Age: 38 Room: SP Procedure Room 3 Gender: Female Note Status: Finalized Attending MD: Suzi Watkins MD Procedure: Upper GI endoscopy Indications: Gastro-esophageal reflux disease, Follow-up of gastro-esophageal reflux disease, Gastroparesis Providers: Suzi Watkins MD Patient Profile: Refer to note in patient chart for documentation of history and physical. Patient has symptoms of chronic regurgitation. Referring Physician: Medicines: Monitored Anesthesia Care Complications: No immediate complications. Estimated blood loss: Minimal. Requesting Provider: Procedure: Pre-Anesthesia Assessment: - Prior to the procedure, a History and Physical was performed, and patient medications and allergies were reviewed. The patient is competent. The risks and benefits of the procedure and the sedation options and risks were discussed with the patient. All questions were answered and informed consent was obtained. Patient identification and proposed procedure were verified by the physician, the nurse and the electric solderer in the pre-procedure area in the endoscopy suite. Mental Status Examination: alert and oriented. Airway Examination: normal oropharyngeal airway and neck mobility. Respiratory Examination: clear to auscultation. CV Examination: normal. Prophylactic Antibiotics: The patient does not require prophylactic antibiotics. Prior Anticoagulants: The patient has taken no anticoagulant or antiplatelet agents. ASA Grade Assessment: II - A patient with mild systemic disease. After reviewing the risks and benefits, the patient was deemed in satisfactory condition to undergo the procedure. The anesthesia plan was to use monitored anesthesia care (MAC). Immediately prior to administration of medications, the patient was re-assessed for adequacy to receive sedatives. The heart rate, respiratory rate, oxygen saturations, blood pressure, adequacy of pulmonary ventilation, and response to care were monitored throughout the procedure. The physical status of the patient was re-assessed after the procedure. After obtaining informed consent, the endoscope was passed under direct vision. Throughout the procedure, the patient's blood pressure, pulse, and oxygen saturations were monitored continuously. The Endoscope was introduced through the mouth, and advanced to the second part of duodenum. The upper GI endoscopy was accomplished without difficulty. The patient tolerated the procedure well. Moderate Sedation: MAC anesthesia was administered by the anesthesia team. No sedation was administered for this procedure. Total Procedure Duration: 0 hours 20 minutes 43 seconds Findings: The examined portions of the nasopharynx, oropharynx and larynx were normal. Normal mucosa was found in the entire esophagus. The Z-line was regular and was found 34 cm from the incisors. A 2 cm hiatal hernia was present. The entire examined stomach was normal. The examined duodenum was normal. No endoscopic abnormality was evident in the esophagus to explain the patient's complaint of dysphagia. It was decided, however, to proceed with dilation of the entire esophagus. A guidewire was placed and the scope was withdrawn. Dilation was performed with a Savary dilator with mild resistance at 57 Fr. The dilation site was examined following endoscope reinsertion and showed complete resolution of luminal narrowing. Estimated blood loss was minimal. The HUERTA capsule with delivery system was introduced through the mouth and advanced into the esophagus, such that the HUERTA pH capsule was positioned 28 cm from the incisors, which was 6 cm proximal to the GE junction. The HUERTA pH capsule was then deployed and attached to the esophageal mucosa. The delivery system was then withdrawn. Endoscopy was utilized for probe placement and diagnostic evaluation. Impression: - The examined portions of the nasopharynx, oropharynx and larynx were normal. - Normal mucosa was found in the entire esophagus. - Z-line regular, 34 cm from the incisors. C0M0 - 2-3 cm Type 1 hiatal hernia. - Hill IV flap valve - Normal stomach. - Normal examined duodenum. - No endoscopic esophageal abnormality to explain patient's dysphagia. Esophagus dilated. Dilated to 57Fr savary - The HUERTA pH capsule was deployed. - No specimens collected. Recommendation: - Discharge patient to home (ambulatory). - Resume previous diet today. - Continue present medications. - Return to my office as previously scheduled. - Written discharge instructions were provided to the patient. - The signs and symptoms of potential delayed complications were discussed with the patient. - Patient has a contact number available for emergenci (more content not included)... Normal [facility] NURSING PROGon 02-04-2023 NURSING PROG HNO ID: [id number] Author: Weston Reyes RN Service: ? Author Type: Registered Nurse Type: Nursing Progress Note Filed: 02/04/2023 2:18 PM Note Text: [facility] ENDOSCOPY PRE PROCEDURE CALL Maury. I'm calling from [facility] endoscopy to provide you with the information for your surgery/procedure tomorrow. Spoke to: voicemail and my chart Normal [facility] Cirilo 01-18-2023 SAYTA Telephone ([employer]) [facility] ([id number]) 1985 F Date Time Provider Department 01/18/23 SUZI WATKINS During your visit today, we recorded the following information about you: Ivone Patricia 01/18/2023 11:31 AM Signed Patient called and stated she did not know if she should cancel her EGD [facility] tomorrow on 01/[address] Watkins because she went to the ED last night for kidney stones. She is taking the medication but not sure it will be broken up by tomorrow. Patient asking if she should reschedule, please reach out to patient. Thank you! Kena Burrows RN 01/18/2023 11:52 AM Signed called patient to discuss No fever, is taking naproxen Vicodin and Flomax has not passed the stone rescheduled her EGD with huerta to 02/09 and post follow up to 02/24 Kena Burrows RN January 18, 2023 11:51 AM Allergies As of Date: 01/18/2023 (No Known Allergies) Date Reviewed: 01/11/2023 Reviewed by: Elizabeth Dias APRN.ENVIRONMENTAL REMEDIATION ENGINEER - Fully Assessed Reason for Visit: Patient Update [1234] Prescriptions as of 01/18/2023 - amLODIPine (NORVASC) 10 mg tablet Take 1 tablet by mouth once daily. - labetalol (TRANDATE) 200 mg tablet Take 1 tablet by mouth three times daily. - omeprazole (PRILOSEC) 40 mg capsule Take 1 capsule by mouth twice daily before meals. Problem List As Of Date 01/18/2023 Noted Resolved Encounter for in vitro fertilization [Z31.83] 02/04/2017 04/04/2019 Hypertension, essential [I10] 10/20/2017 resulting from assisted reproductive *08/31/2018 04/04/2019 Pre-existing essential hypertension complicatin* 9 04/04/2019 Family history of congenital heart defect [Z82.*08/31/2018 04/04/2019 Positive GBS test [B95.1] 03/02/2019 04/04/2019 GERD without esophagitis [K21.9] 12/25/2021 Fatigue [R53.83] 09/10/2022 Nonalcoholic fatty liver disease [K76.0] 10/23/2022 Gastroparesis [K31.84] 10/23/2022 Gastric antral vascular ectasia [K31.819] 09/23/2022 Encounter Status:Closed by KENA BURROWS on 01/18/23 [facility] Absolute lymphocyte countOrd ered By: Dr. Bob on 2023 Lymphocytes Auto (Unsp spec) [#/Vol] 1.76 10*3/uL 0.83-4.51 [facility] Basophil percentageOrdered B y: Dr. Bob on 2023 Basophil percentage 5-10 SEEN /hpf 0-5 [facility] Basophils/100 WBC (Bld) 0.6 % 0-1 [facility] Chloride [Moles/Vol] 107 mmol/L 98-107 [facility] Eosinophils/100 WBC (Bld) 1.3 % 0-5 [facility] Glucose [Mass/Vol] 93 mg/dL 74-106 [facility] Neutrophils (Bld) [#/Vol] 6.3 10*3/uL 2.0-7.7 [facility] Neutrophils/100 WBC (Bld) 72.9 % 47-70 [facility] Potassium [Moles/Vol] 3.9 mmol/L 3.5-5.1 [facility] Sodium [Moles/Vol] 135 mmol/L 136-145 [facility] WBC (Bld) [#/Vol] 8.7 10*3/uL 4.4-11.0 [facility] Beta hCG serum qualOrdered B y: Dr. Bob on 2023 Beta HCG ( test) Ql Negative [facility] Bilirubin Test strip Ql (U)O rdered By: Dr. Bob on 2023 Bilirubin Ql (U) Negative Negative [facility] Blood erythrocytes count (nu mber/volume)Ordered By: Dr. Bob on 2023 RBC (Bld) [#/Vol] 5.87 10*6/uL 4.2-5.4 [facility] Blood hemoglobin measurement (mass/volume)Ordered By: Dr. Bob on 2023 Hemoglobin (Bld) [Mass/Vol] 14.6 g/dL 12.0-15. 0 [facility] Blood lymphocytes/100 leukoc ytesOrdered By: Dr. Bob on 2023 Lymphocytes/100 WBC (Bld) 20.2 % 19-41 [facility] Blood monocytes/100 leukocyt esOrdered By: Dr. Bob on 2023 Monocytes/100 WBC (Bld) 4.8 % 0-10 [facility] Blood platelet mean volumeOr dered By: Dr. Bob on 2023 Platelet mean volume (Bld) [Entitic vol] 10.3 fL 6.2-12.0 [facility] Determination of erythrocyte mean corpuscular volume (MCV)Ordered By: Dr. Bob on 2023 MCV (RBC) [Entitic vol] 77.0 fL 81-99 [facility] Hematocrit Auto (Bld) [Volum e fraction]Ordered By: Dr. Bob on 2023 Hematocrit (Bld) [Volume fraction] 45.2 % 37-47 [facility] Ketones Test strip Ql (U)Ord ered By: Dr. Bob on 2023 Ketones Ql (U) 15 mg/dl Negative [facility] Laboratory - Chemistry and C hemistry - challengeOrdered By: Dr. Bob on 2023 CO2 [Moles/Vol] 24.0 mmol/L 21.0-32.0 [facility] Urea nitrogen/Creatinine [Mass ratio] 15.2 mg/mg 10-20 [facility] Laboratory - Hematology and Cell countsOrdered By: Dr. Bob on 2023 Erythrocyte distribution width (RBC) [Entitic vol] 37.4 fL 35.1-43.9 [facility] Erythrocyte distribution width (RBC) [Ratio] 13.6 % 11.6-14.6 [facility] Immature granulocytes/100 WBC (Bld) 0.200 % 0.0-0.9 [facility] Comment on above: IG% - Immature Granu locytes (promyelocytes, myelocytes and metamyelocytes) > 1% indicates that a LEFT SHIFT is Present. MCH (RBC) [Entitic mass] 24.9 pg 27.0-32.0 [facility] Nucleated RBC/100 WBC (Bld) [Ratio] 0 % 0-5 [facility] MCHC Auto (RBC) [Mass/Vol]Or dered By: Dr. Bob on 2023 MCHC (RBC) [Mass/Vol] 32.3 g/dL 32-36 [facility] Mucus LM Ql (Urine sed)Order ed By: Dr. Bob on 2023 Mucus Ql (Urine sed) 0 SEEN /hpf [facility] Nitrite Test strip Ql (U)Ord ered By: Dr. Bob on 2023 Nitrite Ql (U) Negative Negative [facility] No Panel InformationOrdered By: Dr. Bob on 2023 Estimated Creatinine Clearance Calc 136.42 ml/min [facility] Estimated GFR (MDRD) Amer 118 mL/min >60 [facility] Comment on above: GFR Calc Estimated GFR (MDRD) Non-Af Amer 97 mL/min >60 [facility] Comment on above: Non- GFR Calc Platelets bldOrdered By: Dr. Bob on 2023 Platelets (Bld) [#/Vol] 308 10*3/uL 150-450 [facility] Protein Test strip Ql (U)Ord ered By: Dr. Bob on 2023 Protein Ql (U) 100 mg/dl Negative [facility] Serum or plasma calcium charu urement (mass/volume)Ordered By: Dr. Bob on 2023 Calcium [Mass/Vol] 9.5 mg/dL 8.5-10.1 [facility] Serum or plasma creatinine m easurement (mass/volume)Ordered By: Dr. Bob on 2023 Creatinine [Mass/Vol] 0.72 mg/dL 0.55-1.02 [facility] Comment on above: The validity of the calculated GFR & GFRAA in patients over 70 years has not been determined. Clinical correlation is essential. Serum or plasma urea nitroge n measurement (mass/volume)Ordered By: Dr. Bob on 2023 Urea nitrogen [Mass/Vol] 11 mg/dL 7-18 [facility] Squamous epithelial cells de tection in urine sediment by light microscopyOrdered By: Dr. Bob on 2023 Epithelial cells.squamous LM Ql (Urine sed) 0-5 SEEN /hpf 5-10 [facility] Thin prep Papanicolaou smear with manual screeningOrdered By: Dr. Bob on 2023 Thin prep Papanicolaou smear with manual screening 4 5-15 [facility] Urine blood detectionOrdered By: Dr. Bob on 2023 RBC Ql (U) 250 /ul Negative [facility] RBC Ql (U) > 100 SEEN /hpf 0-5 [facility] Urine clarityOrdered By: Dr. Bob on 2023 Clarity (U) Cloudy Clear [facility] Urine color determinationOrd ered By: Dr. Bob on 2023 Color (U) Yellow Yellow [facility] Urine glucose detectionOrder ed By: Dr. Bob on 2023 Glucose Ql (U) Normal mg/dl Normal [facility] Urine leukocyte esterase det ection by dipstickOrdered By: Dr. Bob on 2023 Leukocyte esterase Test strip Ql (U) 100 /ul Negative [facility] Urine pHOrdered By: Dr. Ziyad elias on 2023 pH (U) 6.0 [pH] 5.0 - 8.0 [facility] Urine sediment bacteria coun t by microscopy (number/high power field)Ordered By: Dr. Bob on 2023 Bacteria LM.HPF (Urine sed) [#/Area] 1 /[HPF] None Seen [facility] Urine specific gravity measu rementOrdered By: Dr. Bob on 2023 Specific gravity (U) [Rel density] 1.025 1.002-1.03 0 [facility] Urobilinogen Auto test strip Ql (U)Ordered By: Dr. Bob on 2023 Urobilinogen Ql (U) Normal mg/dl Normal [facility] ACETYLCHOLINE REC BINDING AB on 01-06-2023 ACETYLCHOLINE BINDING, QUAL Negative Normal Negative [facility] Comment on above: Order Comment: Speci men Type: BLOOD SPECIMEN Ordering Facility: [facility] Address: [address] [place] [address] Result Comment: Anti -acetylcholine receptor binding antibody test is used as an aid in diagnosis of myasthenia gravis. A negative result cannot exclude myasthenia gravis. Clinical correlation is required. Performed By: #### C ARNPL #### [facility] CLIA [id number] [address] [place] [address] [place] Acetylcholine receptor binding Ab (S) [Moles/Vol] <0.02 Normal <0.21 [facility] Comment on above: Order Comment: Speci men Type: BLOOD SPECIMEN Ordering Facility: [facility] Address: [address] [place] [address] Performed By: #### C ARNPL #### [facility] CLIA [id number] [address] [place] [address] [place] AMINO ACIDS, PLASMA W/ CONSU LTATIONon 01-06-2023 Alanine [Moles/Vol] 345 umol/L Normal 177-583 [facility] Comment on above: Order Comment: Speci men Type: BLOOD SPECIMEN Ordering Facility: [facility] Address: [address] [place] [address] Performed By: #### C YTOKP #### [place] [id number] [address] [place] [address] Alloisoleucine [Moles/Vol] <1 Normal 0-2 [facility] Comment on above: Order Comment: Speci men Type: BLOOD SPECIMEN Ordering Facility: [facility] Address: [address] [place] [address] Performed By: #### C YTOKP #### [facility] CLIA [id number] [address] [place] [address] Alpha aminoadipate [Moles/Vol] <1 Normal 0-6 [facility] Comment on above: Order Comment: Speci men Type: BLOOD SPECIMEN Ordering Facility: [facility] Address: [address] [address] Performed By: #### C YTOKP #### [facility] CLIA [id number] [address] [place] [address] AMINO ACID CONSULTATION, PLASMA Normal [facility] Comment on above: Order Comment: Speci men Type: BLOOD SPECIMEN Ordering Facility: [facility] Address: [address] [place] [address] Result Comment: This plasma amino acid analysis shows no significant abnormalities. Reference intervals from Andrzej Alejo, George MG, John KADIE, and Soham DK: Biochemical Genetics: A Laboratory Manual, Copyright 1989 by [employer] Reference intervals not established for some amino acids. This test was developed and its performance characteristics determined by [facility]'s Psychiatric [facility] [place] [facility] It has not been cleared or approved by the FDA. -[facility] is regulated under CLIA as qualified to perform high complexity testing. This test is used for clinical purposes. It should not be regarded as investigational or for research. Performed By: #### C YTOKP #### [facility] CLIA [id number] [address] [place] [address] AMINO ACIDS REVIEW, PLASMA Reviewed by Zenaida Mcfadden MD, Ph.D ([id number]) [facility] Comment on above: Order Comment: Speci men Type: BLOOD SPECIMEN Ordering Facility: [facility] Address: [address] [address] Performed By: #### C YTOKP #### [facility] CLIA [id number] [address] [place] [address] Arginine [Moles/Vol] 49 umol/L Normal 15-128 [facility] Comment on above: Order Comment: Speci men Type: BLOOD SPECIMEN Ordering Facility: [facility] Address: [address] [address] Performed By: #### C YTOKP #### [facility] CLIA [id number] [address] [place] [address] Asparagine [Moles/Vol] 40 umol/L Normal 35-74 [facility] Comment on above: Order Comment: Speci men Type: BLOOD SPECIMEN Ordering Facility: [facility] Address: [address] [place] [address] Performed By: #### C YTOKP #### [facility] CLIA [id number] [address] [place] [address] Aspartate [Moles/Vol] 5 umol/L Normal 1-25 [facility] Comment on above: Order Comment: Speci men Type: BLOOD SPECIMEN Ordering Facility: [facility] Address: [address] [place] [address] Performed By: #### C YTOKP #### [facility] CLIA [id number] [address] [place] [address] Citrulline [Moles/Vol] 15 umol/L Normal 12-55 [facility] Comment on above: Order Comment: Speci men Type: BLOOD SPECIMEN Ordering Facility: [facility] Address: [address] [place] [address] Performed By: #### C YTOKP #### [facility] CLIA [id number] [address] [place] [address] Cystine [Moles/Vol] 42 umol/L Normal 5-82 [facility] Comment on above: Order Comment: Speci men Type: BLOOD SPECIMEN Ordering Facility: [facility] Address: [address] [place] [address] Performed By: #### C YTOKP #### [facility] CLIA [id number] [address] [place] [address] Glutamate [Moles/Vol] 67 umol/L Normal 10-131 [facility] Comment on above: Order Comment: Speci men Type: BLOOD SPECIMEN Ordering Facility: [facility] Address: [address] [place] [address] Performed By: #### C YTOKP #### [facility] CLIA [id number] [address] [place] [address] Glutamine [Moles/Vol] 538 umol/L Normal 205-756 [facility] Comment on above: Order Comment: Speci men Type: BLOOD SPECIMEN Ordering Facility: [facility] Address: [address] [place] [address] Performed By: #### C YTOKP #### [facility] CLIA [id number] [address] [place] [address] Glycine [Moles/Vol] 278 umol/L Normal 151-490 [facility] Comment on above: Order Comment: Speci men Type: BLOOD SPECIMEN Ordering Facility: [facility] Address: [address] [place] [address] Performed By: #### C YTOKP #### [facility] CLIA [id number] [address] [place] [address] Histidine [Moles/Vol] 59 umol/L Low 72-124 [facility] Comment on above: Order Comment: Speci men Type: BLOOD SPECIMEN Ordering Facility: [facility] Address: [address] [place] [address] Performed By: #### C YTOKP #### [facility] CLIA [id number] [address] [place] [address] Hydroxylysine [Moles/Vol] <1 High <=0 [facility] Comment on above: Order Comment: Speci men Type: BLOOD SPECIMEN Ordering Facility: [facility] Address: [address] [place] [address] Performed By: #### C YTOKP #### [facility] CLIA [id number] [address] [place] [address] Hydroxyproline [Moles/Vol] 6 umol/L Normal 0-53 [facility] Comment on above: Order Comment: Speci men Type: BLOOD SPECIMEN Ordering Facility: [facility] Address: [address] [place] [address] Performed By: #### C YTOKP #### [facility] CLIA [id number] [address] [place] [address] Isoleucine [Moles/Vol] 67 um/L Normal 30-108 [facility] Comment on above: Order Comment: Speci men Type: BLOOD SPECIMEN Ordering Facility: [facility] Address: [address] [place], [place] [address] Performed By: #### C YTOKP #### [facility] CLIA [id number] [address] [place] [address] Leucine [Moles/Vol] 117 umol/L Normal 72-201 [facility] Comment on above: Order Comment: Speci men Type: BLOOD SPECIMEN Ordering Facility: [facility] Address: [address] [address] Performed By: #### C YTOKP #### [facility] CLIA [id number] [address] [place] [address] Lysine [Moles/Vol] 167 umol/L Normal 116-296 [facility] Comment on above: Order Comment: Speci men Type: BLOOD SPECIMEN Ordering Facility: [facility] Address: [address] [address] Performed By: #### C YTOKP #### [facility] CLIA [id number] [address] [place] [address] Methionine [Moles/Vol] 22 umol/L Normal 10-42 [facility] Comment on above: Order Comment: Speci men Type: BLOOD SPECIMEN Ordering Facility: [facility] Address: [address] [address] Performed By: #### C YTOKP #### [facility] CLIA [id number] [address] [place] [address] Ornithine [Moles/Vol] 45 umol/L Low 48-195 [facility] Comment on above: Order Comment: Speci men Type: BLOOD SPECIMEN Ordering Facility: [facility] Address: [address] Performed By: #### C YTOKP #### [facility] CLIA [id number] [address] [place] [address] Phenylalanine [Moles/Vol] 65 umol/L Normal 35-85 [facility] Comment on above: Order Comment: Speci men Type: BLOOD SPECIMEN Ordering Facility: [facility] Address: [address] [address] Performed By: #### C YTOKP #### [facility] CLIA [id number] [address] [place] [address] Proline [Moles/Vol] 175 umol/L Normal 97-329 [facility] Comment on above: Order Comment: Speci men Type: BLOOD SPECIMEN Ordering Facility: [facility] Address: [address] [place] [address] Performed By: #### C YTOKP #### [facility] CLIA [id number] [address] [place] [address] Sarcosine [Moles/Vol] <1 High <=0 [facility] Comment on above: Order Comment: Speci men Type: BLOOD SPECIMEN Ordering Facility: [facility] Address: [address] [place] [address] Performed By: #### C YTOKP #### [facility] CLIA [id number] [address] [place] [address] Serine [Moles/Vol] 114 umol/L Normal 58-181 [facility] Comment on above: Order Comment: Speci men Type: BLOOD SPECIMEN Ordering Facility: [facility] Address: [address] [place] [address] Performed By: #### C YTOKP #### [facility] CLIA [id number] [address] [place] [address] Taurine [Moles/Vol] 44 umol/L Low 54-210 [facility] Comment on above: Order Comment: Speci men Type: BLOOD SPECIMEN Ordering Facility: [facility] Address: [address] [place] [address] Performed By: #### C YTOKP #### [facility] CLIA [id number] [address] [place] [address] Threonine [Moles/Vol] 134 umol/L Normal 60-225 [facility] Comment on above: Order Comment: Speci men Type: BLOOD SPECIMEN Ordering Facility: [facility] Address: [address] [place] [address] Performed By: #### C YTOKP #### [facility] CLIA [id number] [address] [place] [address] Tyrosine [Moles/Vol] 41 umol/L Normal 34-112 [facility] Comment on above: Order Comment: Speci pretty Type: BLOOD SPECIMEN Ordering Facility: [facility] Address: [address] [address] Performed By: #### C YTOKP #### [facility] CLIA [id number] [address] [place] [address] Valine [Moles/Vol] 205 umol/L Normal 119-336 [facility] Comment on above: Order Comment: Speci men Type: BLOOD SPECIMEN Ordering Facility: [facility] Address: [address] [address] Performed By: #### C YTOKP #### [facility] [id number] [address] [place] [address] CARNITINE FREE/TOTAL, PLASMA on 01-06-2023 C0 [Moles/Vol] 20 umol/L Low 22-54 [facility] Comment on above: Order Comment: Speci pretty Type: BLOOD SPECIMEN Ordering Facility: [facility] Address: [address] [place] [address] Performed By: #### C ARNPL #### [facility] CLIA [id number] [address] [place] [address] [place] C0/Total carnitine [Molar fraction] 0.741 Normal 0.700-0.90 0 [facility] Comment on above: Order Comment: Kathia olsen Type: BLOOD SPECIMEN Ordering Facility: [facility] Address: [address] [place] [address] Result Comment: NOTE : The determination of the plasma free carnitine level and of the total free and acylcarnitine levels is dependent on multiple factors, including the nutritional status of the subject, his/her underlying disorder, concurrent illnesses and, sometimes, medications that he/she is receiving. Consequently, a normal or minimally abnormal result with this test does not always rule-out the possibility of a disorder of carnitine or fatty acid metabolism. This test does not by itself provide information on the levels of various plasma acylcarnitine species and measurement of the latter is often needed for the diagnostic evaluation and follow-up of disorders of mitochondrial fatty acid beta-oxidation and some other disorders associated with pathologic levels of selected acylcarnitine species. This test was developed and its performance characteristics determined by the Pathology [facility] [place] at the [facility]. The U.S. Food and Drug Administration has not approved or cleared this test, however, FDA clearance or approval is not currently required for clinical use. Performed By: #### C ARNPL #### [facility] CLIA [id number] [address] [place] [address] [place] Carnitine [Moles/Vol] 27 umol/L Normal 27-68 [facility] Comment on above: Order Comment: Speci men Type: BLOOD SPECIMEN Ordering Facility: [facility] Address: [address] [place] [address] Performed By: #### C ARNPL #### [facility] CLIA [id number] [address] [place] [address] [place] CK SerPl-cCncon 01-06-2023 CK [Catalytic activity/Vol] 38 U/L Low 42-196 [facility] Comment on above: Order Comment: Speci men Type: BLOOD SPECIMEN Ordering Facility: [facility] Address: [address] [place] [address] Performed By: #### C ARNPL #### [facility] CLIA [id number] [address] [place] [address] [place] CRP SerPl-mCncon 01-06-2023 CRP [Mass/Vol] mg/L Normal <0.9 [facility] Comment on above: Order Comment: Speci men Type: BLOOD SPECIMEN Ordering Facility: [facility] Address: [address] Performed By: #### C ARNPL #### [facility] CLIA [id number] [address] [place] [address] [place] CYTOKINE PANEL 13, SERUMon 0 01-06-2023 INTERFERON GAMMA <4.2 Normal <=4.2 [facility] Comment on above: Order Comment: Speci men Type: BLOOD SPECIMEN Ordering Facility: [facility] Address: [address] [address] Performed By: #### C YTOKP #### [facility] CLIA [id number] [address] [place] [address] INTERLEUKIN 1 BETA <6.5 Normal <=6.7 [facility] Comment on above: Order Comment: Speci men Type: BLOOD SPECIMEN Ordering Facility: [facility] Address: [address] [place] [address] Performed By: #### C YTOKP #### [facility] CLIA [id number] [address] [place] [address] INTERLEUKIN 10 <2.8 Normal <=2.8 [facility] Comment on above: Order Comment: Speci men Type: BLOOD SPECIMEN Ordering Facility: [facility] Address: [address] [place] [address] Performed By: #### C YTOKP #### [facility] CLIA [id number] [address] [place] [address] INTERLEUKIN 12 <1.9 Normal <=1.9 [facility] Comment on above: Order Comment: Speci men Type: BLOOD SPECIMEN Ordering Facility: [facility] Address: [address] [place] [address] Performed By: #### C YTOKP #### [facility] CLIA [id number] [address] [place] [address] INTERLEUKIN 13 <1.7 Normal <=2.3 [facility] Comment on above: Order Comment: Speci men Type: BLOOD SPECIMEN Ordering Facility: [facility] Address: [address] [address] Performed By: #### C YTOKP #### [facility] CLIA [id number] [address] [place] [address] INTERLEUKIN 17 <1.4 Normal <=1.4 [facility] Comment on above: Order Comment: Speci men Type: BLOOD SPECIMEN Ordering Facility: [facility] Address: [address] [place] [address] Performed By: #### C YTOKP #### [facility] CLIA [id number] [address] [place] [address] INTERLEUKIN 2 <2.1 Normal <=2.1 [facility] Comment on above: Order Comment: Speci men Type: BLOOD SPECIMEN Ordering Facility: [facility] Address: [address] [place] [address] Performed By: #### C YTOKP #### [facility] CLIA [id number] [address] [place] [address] INTERLEUKIN 4 (INT4) <2.2 Normal <=2.2 [facility] Comment on above: Order Comment: Speci men Type: BLOOD SPECIMEN Ordering Facility: [facility] Address: [address] [place] [address] Performed By: #### C YTOKP #### [facility] CLIA [id number] [address] [place] [address] INTERLEUKIN 5 <2.1 Normal <=2.1 [facility] Comment on above: Order Comment: Speci men Type: BLOOD SPECIMEN Ordering Facility: [facility] Address: [address] [place] [address] Performed By: #### C YTOKP #### [facility] CLIA [id number] [address] [place] [address] INTERLEUKIN 6 <2.0 Normal <=2.0 [facility] Comment on above: Order Comment: Speci men Type: BLOOD SPECIMEN Ordering Facility: [facility] Address: [address] [place] [address] Performed By: #### C YTOKP #### [facility] CLIA [id number] [address] [place] [address] INTERLEUKIN 8 <3.0 Normal <=3.0 [facility] Comment on above: Order Comment: Speci men Type: BLOOD SPECIMEN Ordering Facility: [facility] Address: [address] [place] [address] Performed By: #### C YTOKP #### [facility] CLIA [id number] [address] [place] [address] INTERLEUKIN-2 RECEPTOR 700.2 pg/mL Normal 175.3 -858. 2 [facility] Comment on above: Order Comment: Speci men Type: BLOOD SPECIMEN Ordering Facility: [facility] Address: [address] [place] [address] Performed By: #### C YTOKP #### [facility] [id number] [address] [place] [address] TUMOR NECROSIS FACTOR - ALPHA 1.7 pg/mL Normal <=7.2 [facility] Comment on above: Order Comment: Speci men Type: BLOOD SPECIMEN Ordering Facility: [facility] Address: [address] [place] [address] Result Comment: INTE RPRETIVE INFORMATION: Cytokines Results are used to understand the pathophysiology of immune, infectious, or inflammatory disorders, or may be used for research purposes. This test was developed and its performance characteristics determined by [facility]. It has not been cleared or approved by the [place] Food and Drug Administration. This test was performed in a CLIA certified laboratory and is intended for clinical purposes. Performed By: [facility] [address] [place] [address] Tool Crib Lead: Silvano Melendrez MD, PhD Performed By: #### C YTOKP #### [facility] [id number] [address] [place] [address] ESR Westergren method (Bld) [Velocity]on 01-06-2023 ESR (Bld) [Velocity] 15 mm/h Normal 0-20 [facility] Comment on above: Order Comment: Speci men Type: BLOOD SPECIMEN Ordering Facility: [facility] Address: [address] [place] [address] Performed By: #### C ARNPL #### [facility] CLIA [id number] [address] [facility] [address] [place] [address] [place] ESTROGEN FRACTION BLon 01-06 ESTRADIOL 89.1 pg/mL Normal [facility] Comment on above: Order Comment: Speci men Type: BLOOD SPECIMEN Ordering Facility: [facility] Address: [address] [place] [address] Result Comment: REFE RENCE INTERVAL: Estradiol by [employer] For a complete set of all established reference intervals, refer to Kambit[employer]Mithridion/Tests/Pub/[id number]. This test was developed and its performance characteristics determined by [facility]. It has not been cleared or approved by the [place] Food and Drug Administration. This test was performed in a CLIA certified laboratory and is intended for clinical purposes. Performed By: #### BRITTNY LÓPEZ #### [facility] CLIA [id number] [address] [place] [address] ESTROGENS TOTAL 142.2 pg/mL Normal [facility] Comment on above: Order Comment: Speci men Type: BLOOD SPECIMEN Ordering Facility: [facility] Address: [address] [place] [address] Result Comment: Refe rence interval of estrogens (pg/mL) Estrone Estradiol Total Estrogens Early follicular <150.0 30.0-100.0 30.0-250.0 Late follicular 100.0-250.0 100.0-400.0 200.0-650.0 Luteal <200.0 50.0-150.0 50.0-350.0 Post-menopausal 3.0-32.0 2.0-21.0 5.0-52.0 REFERENCE INTERVAL: Estrogens Total Calculation For a complete set of all established reference intervals, refer to Voltari/Tests/Pub/[id number]. Performed By: [facility] [address] [place] [address] Tool Crib Lead: Silvano Melendrez MD, PhD Performed By: #### BRITTNY LÓPEZ #### [facility] CLIA [id number] [address] [id number] ESTRONE 53.1 pg/mL Normal [facility] Comment on above: Order Comment: Speci men Type: BLOOD SPECIMEN Ordering Facility: [facility] Address: [address] [place] [address] Result Comment: INTERPRETIVE INFORMATION: Estrone by [employer]maker For a complete set of all established reference intervals, refer to Voltari/Tests/Pub/[id number]. This test was developed and its performance characteristics determined by [facility]. It has not been cleared or approved by the US Food and Drug Administration. This test was performed in a CLIA certified laboratory and is intended for clinical purposes. Performed By: #### BRITTNY LÓPEZ #### [facility] [id number] [address] [place] [address] GAD65 Ab Ser-aCncon 01-07-20 Glutamate decarboxylase 65 Ab Qn (S) <5.0 Normal <=5.0 [facility] Comment on above: Order Comment: Kathia olsen Type: BLOOD SPECIMEN Ordering Facility: [facility] Address: [address] [place] [address] Result Comment: Anti -glutamic acid decarboxylase antibody (GAD65) test usually in conjunction with another test such as IA-2 antibody is used as an aid in establishing the autoimmune nature of previously-diagnosed type I diabetes mellitus or in predicting of progression to type I diabetes mellitus in patients with certain autoimmune diseases including autoimmune gastritis among others. It is also used as an aid in diagnosis of stiff person syndrome and certain autoimmune nervous system diseases. Clinical correlation is required. Performed By: #### C ARNPL #### [facility] CLIA [id number] [address] [place] [address] OF FE Glutamate decarboxylase 65 A b Qn (S)on 01-06-2023 GLUTAMIC ACID DECARBOXYLAS AB QUALITATIVE Negative Normal Negative [facility] Comment on above: Order Comment: Kathia olsen Type: BLOOD SPECIMEN Ordering Facility: [facility] Address: [address] [place] [address] Performed By: #### C ARNPL #### [facility] CLIA [id number] [address] [place] [address] OF FE HbA1c (Bld)on 01-06-2023 Average glucose Estimated from glycated hemoglobin (Bld) [Mass/Vol] 97 mg/dL Normal [facility] Comment on above: Order Comment: Kathia olsen Type: BLOOD SPECIMEN Ordering Facility: [facility] Address: [address] [place] [address] Result Comment: eAG: (Estimated average glucose) is a calculated value from HgbA1c and is door to door sales representative of the average blood glucose level in the last 2-3 month period. Performed By: #### C ARNPL #### [facility] CLIA [id number] [address] [id number] [address] [place] HbA1c (Bld) [Mass fraction] 5.0 % Normal 4.3-5.6 [facility] Comment on above: Order Comment: Kathia olsen Type: BLOOD SPECIMEN Ordering Facility: [facility] Address: [address] [place] [address] Result Comment: [place] Diabetes Association guidelines indicate that patients with HgbA1c in the range 5.7-6.4% are at increased risk for development of diabetes, and intervention by lifestyle modification may be beneficial. HgbA1c greater or equal to 6.5% is considered diagnostic of diabetes. Performed By: #### C ARNPL #### [facility] CLIA [id number] [address] [place] [address] [place] IgA SerPl-mCncon 01-06-2023 IgA [Mass/Vol] 168 mg/dL Normal 70-400 [facility] Comment on above: Order Comment: Kathia olsen Type: BLOOD SPECIMEN Ordering Facility: [facility] Address: [address] [place] [address] Performed By: #### 2 458-8, 2465-3, 2472-9 #### [facility] CLIA [id number] [address] [place] [address] [place] IgG SerPl-mCncon 01-06-2023 IgG [Mass/Vol] 887 mg/dL Normal 700-1600 [facility] Comment on above: Order Comment: Kathia olsen Type: BLOOD SPECIMEN Ordering Facility: [facility] Address: [address] [place], [place] [address] Performed By: #### 2 458-8, 2465-3, 2472-9 #### [facility] CLIA [id number] [address] [place] [address] [place] IgM SerPl-mCncon 01-06-2023 IgM [Mass/Vol] 33 mg/dL Low 40-230 [facility] Comment on above: Order Comment: Kathia olsen Type: BLOOD SPECIMEN Ordering Facility: [facility] Address: [address] [place], [place] [address] Performed By: #### 2 458-8, 2465-3, 2472-9 #### [facility] [place] [id number] [address] [place] [address] [place] LDH SerPl-cCncon 01-06-2023 LDH [Catalytic activity/Vol] 164 U/L Normal 135-214 [facility] Comment on above: Order Comment: Speci men Type: BLOOD SPECIMEN Ordering Facility: [facility] Address: [address] Performed By: #### C ARNPL #### [facility] [place] [id number] [address] [place] [address] [place] ORGANIC ACIDS UR, QUANT W/CO NSULTon 01-06-2023 2-Hydroxyglutarate/Creatini ne (U) [Molar ratio] 7.3 umol/mmolCr Normal 0.6-17.7 [facility] Comment on above: Order Comment: Speci men Type: URINE SPECIMEN Ordering Facility: [facility] Address: [address] Performed By: #### L [id number] #### [facility] [place] [id number] [address] [place] [address] OF FE 2-Hydroxyisovalerate/Creati nine (U) [Molar ratio] <0.1 Normal 0.0-0.1 [facility] Comment on above: Order Comment: Speci men Type: URINE SPECIMEN Ordering Facility: [facility] Address: [address] Performed By: #### L [id number] #### [facility] IA [id number] [address] [place] [address] [place] 3-Tiizuh-1-hydroxybutyrate (C5-OH)/Creatinine (U) [Molar ratio] <0.6 Normal 0.0-1.3 [facility] Comment on above: Order Comment: Speci men Type: URINE SPECIMEN Ordering Facility: [facility] Address: [address] [place] [address] Performed By: #### L [id number] #### [facility] CLIA [id number] [address] [place] [address] [place] 2-Methylbutyrylglycine/Crea tinine (U) [Molar ratio] <0.1 Normal 0.0-0.4 [facility] Comment on above: Order Comment: Speci men Type: URINE SPECIMEN Ordering Facility: [facility] Address: [address] [place] [address] Performed By: #### L [id number] #### [facility] CLIA [id number] [address] [place] [address] [place] 2-Methylcitrate/Creatinine (U) [Molar ratio] 3.1 umol/mmolCr Normal 1.0-13.9 [facility] Comment on above: Order Comment: Speci men Type: URINE SPECIMEN Ordering Facility: [facility] Address: [address] Performed By: #### L [id number] #### [facility] CLIA [id number] [address] [place] [address] OF [place] 2-Oxoadipate/Creatinine (U) [Molar ratio] 9.4 umol/mmolCr High 0.0-3.3 [facility] Comment on above: Order Comment: Speci men Type: URINE SPECIMEN Ordering Facility: [facility] Address: [address] Performed By: #### L [id number] #### [facility] CLIA [id number] [address] [place] [address] [place] 3-Hydroxyglutarate/Creatini ne (U) [Molar ratio] 0.0 umol/mmolCr Normal 0.0-0.7 [facility] Comment on above: Order Comment: Speci men Type: URINE SPECIMEN Ordering Facility: [facility] Address: [address] [place] [address] Performed By: #### L [id number] #### [facility] CLIA [id number] [address] [place] [address] [place] 3-Hydroxyisovalerate/Creati nine (U) [Molar ratio] 4.6 umol/mmolCr Normal 2.1-27.3 [facility] Comment on above: Order Comment: Speci men Type: URINE SPECIMEN Ordering Facility: [facility] Address: [address] Performed By: #### L [id number] #### [facility] IA [id number] [address] [place] [address] [place] 3-Methylcrotonylglycine/Cre atinine (U) [Molar ratio] <0.3 Normal <0.3 [facility] Comment on above: Order Comment: Speci men Type: URINE SPECIMEN Ordering Facility: [facility] Address: [address] Performed By: #### L [id number] #### [facility] IA [id number] [address] [place] [address] OF [place] 3-Methylglutaconate/Creatin ine (U) [Molar ratio] 1.1 umol/mmolCr Normal 0.0-2.0 [facility] Comment on above: Order Comment: Speci men Type: URINE SPECIMEN Ordering Facility: [facility] Address: [address] [place] [address] Performed By: #### L [id number] #### [facility] CLIA [id number] [address] [place] [address] [place] 3-Methylglutarate/Creatinin e (U) [Molar ratio] 0.5 umol/mmolCr Normal 0.0-0.6 [facility] Comment on above: Order Comment: Speci men Type: URINE SPECIMEN Ordering Facility: [facility] Address: [address] Performed By: #### L [id number] #### [facility] CLIA [id number] [address] [place] [address] [place] 4-Hydroxyphenylacetate/Crea tinine (U) [Molar ratio] 14.4 umol/mmolCr Normal 5.7-147.5 [facility] Comment on above: Order Comment: Speci men Type: URINE SPECIMEN Ordering Facility: [facility] Address: [address] [place] [address] Performed By: #### L [id number] #### [facility] CLIA [id number] [address] [place] [address] [place] 4-Hydroxyphenyllactate/Crea tinine (U) [Molar ratio] 4.3 umol/mmolCr Normal 1.3-23.0 [facility] Comment on above: Order Comment: Speci men Type: URINE SPECIMEN Ordering Facility: [facility] Address: [address] [place] [address] Performed By: #### L [id number] #### [facility] CLIA [id number] [address] [place] [address] [place] 4-Hydroxyphenylpyruvate/Cre atinine (U) [Molar ratio] 0.0 umol/mmolCr Normal <=0.0 [facility] Comment on above: Order Comment: Speci men Type: URINE SPECIMEN Ordering Facility: [facility] Address: [address] [place] [address] Performed By: #### L [id number] #### [facility] CLIA [id number] [address] [place] [address] [place] 5-Oxoproline/Creatinine (U) [Molar ratio] 2.1 umol/mmolCr Normal 0.4-3.1 [facility] Comment on above: Order Comment: Speci men Type: URINE SPECIMEN Ordering Facility: [facility] Address: [address] [place] [address] Performed By: #### L [id number] #### [facility] CLIA [id number] [address] [place] Acetoacetate/Creatinine (U) [Molar ratio] <0.9 High 0.0-0.5 [facility] Comment on above: Order Comment: Speci men Type: URINE SPECIMEN Ordering Facility: [facility] Address: [address] Performed By: #### L [id number] #### [facility] CLIA [id number] [address] OF [place] Aconitate/Creatinine (U) [Molar ratio] 22.8 umol/mmolCr Normal 8.5-109.6 [facility] Comment on above: Order Comment: Speci men Type: URINE SPECIMEN Ordering Facility: [facility] Address: [address] Performed By: #### L [id number] #### [facility] CLIA [id number] [address] Adipate/Creatinine (U) [Molar ratio] 1.4 umol/mmolCr Normal 0.3-9.2 [facility] Comment on above: Order Comment: Speci men Type: URINE SPECIMEN Ordering Facility: [facility] Address: [address] [place] [address] Performed By: #### L [id number] #### [facility] CLIA [id number] [address] [place] Alpha hydroxybutyrate/Creatinine (U) [Molar ratio] <1.0 Normal 0.0-2.7 [facility] Comment on above: Order Comment: Speci men Type: URINE SPECIMEN Ordering Facility: [facility] Address: [address] Performed By: #### L [id number] #### [facility] CLIA [id number] [address] [place] [address] [place] Alpha ketoglutarate/Creatinine (U) [Molar ratio] 12.0 umol/mmolCr Normal 0.2-42.7 [facility] Comment on above: Order Comment: Speci men Type: URINE SPECIMEN Ordering Facility: [facility] Address: [address] [place] [address] Performed By: #### L [id number] #### [facility] CLIA [id number] [address] [place] [address] [place] Benzoate/Creatinine (U) [Molar ratio] <12.2 Normal 0.0-14.6 [facility] Comment on above: Order Comment: Speci men Type: URINE SPECIMEN Ordering Facility: [facility] Address: [address] [place] [address] Performed By: #### L [id number] #### [facility] CLIA [id number] [address] [place] [address] [place] Beta hydroxybutyrate/Creatinine (U) [Molar ratio] <1.6 Normal 0.1-2.6 [facility] Comment on above: Order Comment: Speci men Type: URINE SPECIMEN Ordering Facility: [facility] Address: [address] [place], [place] [address] Performed By: #### L [id number] #### [facility] CLIA [id number] [address] [place] [address] [place] Butyrylglycine/Creatinine (U) [Molar ratio] 0.0 umol/mmolCr Normal 0.0-0.7 [facility] Comment on above: Order Comment: Speci men Type: URINE SPECIMEN Ordering Facility: [facility] Address: [address] [place], [place] [address] Performed By: #### L [id number] #### [facility] CLIA [id number] [address] [place] [address] [place] Creatinine (U) [Mass/Vol] 34.0 mg/dL Low 42.2-237.9 [facility] Comment on above: Order Comment: Speci men Type: URINE SPECIMEN Ordering Facility: [facility] Address: [address] [place] [address] Performed By: #### L [id number] #### [facility] CLIA [id number] [address] [place] [address] [place] Ethylmalonate/Creatinine (U) [Molar ratio] 6.3 umol/mmolCr High 0.5-6.2 [facility] Comment on above: Order Comment: Speci men Type: URINE SPECIMEN Ordering Facility: [facility] Address: [address] [place] [address] Performed By: #### L [id number] #### [facility] CLIA [id number] [address] [place] [address] [place] Fumarate/Creatinine (U) [Molar ratio] 2.3 umol/mmolCr Normal 0.3-2.6 [facility] Comment on above: Order Comment: Speci men Type: URINE SPECIMEN Ordering Facility: [facility] Address: [address] [place], [place] [address] Performed By: #### L [id number] #### [facility] CLIA [id number] [address] [place] [address] [place] Glutarate/Creatinine (U) [Molar ratio] <0.1 Normal 0.0-1.4 [facility] Comment on above: Order Comment: Speci men Type: URINE SPECIMEN Ordering Facility: [facility] Address: [address] [place], [place] [address] Performed By: #### L [id number] #### [facility] CLIA [id number] [address] [place] [address] [place] Hexanoylglycine/Creatinine (U) [Molar ratio] 0.2 umol/mmolCr High 0.0-0.1 [facility] Comment on above: Order Comment: Speci men Type: URINE SPECIMEN Ordering Facility: [facility] Address: [address] Performed By: #### L [id number] #### [facility] CLIA [id number] [address] [place] [address] [place] Isobutyrylglycine/Creatinin e (U) [Molar ratio] 0.4 umol/mmolCr Normal 0.0-1.2 [facility] Comment on above: Order Comment: Speci men Type: URINE SPECIMEN Ordering Facility: [facility] Address: [address] Performed By: #### L [id number] #### [facility] CLIA [id number] [address] [place] [address] [place] Isocitrate/Creatinine (U) [Molar ratio] 66.0 umol/mmolCr Normal 9.1-271.9 [facility] Comment on above: Order Comment: Speci men Type: URINE SPECIMEN Ordering Facility: [facility] Address: [address] [place], [place] [address] Performed By: #### L [id number] #### [facility] CLIA [id number] [address] [place] [address] [place] Lactate/Creatinine (U) [Molar ratio] 159.9 umol/mmolCr High 2.9-47.2 [facility] Comment on above: Order Comment: Speci men Type: URINE SPECIMEN Ordering Facility: [facility] Address: [address] [place] [address] Performed By: #### L [id number] #### [facility] CLIA [id number] [address] [place] [address] [place] Malate/Creatinine (U) [Molar ratio] 0.4 umol/mmolCr Normal 0.0-1.1 [facility] Comment on above: Order Comment: Speci men Type: URINE SPECIMEN Ordering Facility: [facility] Address: [address] [place] [address] Performed By: #### L [id number] #### [facility] CLIA [id number] [address] [place] Malonate/Creatinine (U) [Molar ratio] 0.0 umol/mmolCr Normal 0.0-0.1 [facility] Comment on above: Order Comment: Speci men Type: URINE SPECIMEN Ordering Facility: [facility] Address: [address] [place] [address] Performed By: #### L [id number] #### [facility] CLIA [id number] [address] [place] [address] [place] Methylmalonate/Creatinine (U) [Molar ratio] <0.4 Normal 0.0-0.6 [facility] Comment on above: Order Comment: Speci men Type: URINE SPECIMEN Ordering Facility: [facility] Address: [address] [place] [address] Performed By: #### L [id number] #### [facility] CLIA [id number] [address] [place] [address] [place] Methylsuccinate/Creatinine (U) [Molar ratio] 1.2 umol/mmolCr Normal 0.0-1.4 [facility] Comment on above: Order Comment: Speci men Type: URINE SPECIMEN Ordering Facility: [facility] Address: [address] [place] [address] Performed By: #### L [id number] #### [facility] CLIA [id number] [address] [place] [address] [place] N-acetylaspartate/Creatinin e (U) [Molar ratio] 1.7 umol/mmolCr Normal 0.1-8.9 [facility] Comment on above: Order Comment: Speci men Type: URINE SPECIMEN Ordering Facility: [facility] Address: [address] [place] [address] Performed By: #### L [id number] #### [facility] CLIA [id number] [address] [place] [address] [place] N-acetyltyrosine/Creatinine (U) [Molar ratio] <0.2 Normal 0.0-1.2 [facility] Comment on above: Order Comment: Speci men Type: URINE SPECIMEN Ordering Facility: [facility] Address: [address] [place] [address] Performed By: #### L [id number] #### [facility] CLIA [id number] [address] [place] [address] [place] Oxalate/Creatinine (U) [Molar ratio] 1.6 umol/mmolCr Normal 0.7-12.4 [facility] Comment on above: Order Comment: Speci men Type: URINE SPECIMEN Ordering Facility: [facility] Address: [address] [place] [address] Performed By: #### L [id number] #### [facility] CLIA [id number] [address] [place] [address] [place] Pyruvate/Creatinine (U) [Molar ratio] 0.3 umol/mmolCr Normal 0.1-2.6 [facility] Comment on above: Order Comment: Speci men Type: URINE SPECIMEN Ordering Facility: [facility] Address: [address] [place], [place] [address] Performed By: #### L [id number] #### [facility] CLIA [id number] [address] [place] [address] [place] Sebacate (C8)/Creatinine (U) [Molar ratio] 0.0 umol/mmolCr Normal [facility] Comment on above: Order Comment: Speci men Type: URINE SPECIMEN Ordering Facility: [facility] Address: [address] [place], [place] [address] Performed By: #### L [id number] #### [facility] CLIA [id number] [address] [place] [address] [place] Suberate/Creatinine (U) [Molar ratio] 0.8 umol/mmolCr Normal 0.0-7.4 [facility] Comment on above: Order Comment: Speci men Type: URINE SPECIMEN Ordering Facility: [facility] Address: [address] [place] [address] Performed By: #### L [id number] #### [facility] CLIA [id number] [address] [place] [address] [place] Suberylglycine/Creatinine (U) [Molar ratio] 0.0 umol/mmolCr Normal <=0.0 [facility] Comment on above: Order Comment: Speci men Type: URINE SPECIMEN Ordering Facility: [facility] Address: [address] [place], [place] [address] Performed By: #### L [id number] #### [facility] CLIA [id number] [address] [place] [address] [place] Succinate/Creatinine (U) [Molar ratio] 1.8 umol/mmolCr Normal 0.3-27.4 [facility] Comment on above: Order Comment: Speci men Type: URINE SPECIMEN Ordering Facility: [facility] Address: [address] [place] [address] Performed By: #### L [id number] #### [facility] CLIA [id number] [address] [place] [address] [place] Succinylacetone/Creatinine (U) [Molar ratio] <0.4 Normal <0.4 [facility] Comment on above: Order Comment: Speci men Type: URINE SPECIMEN Ordering Facility: [facility] Address: [address] [place], [place] [address] Performed By: #### L [id number] #### [facility] CLIA [id number] [address] [place] [address] [place] UOA CONSULTATION Normal [facility] Comment on above: Order Comment: Speci men Type: URINE SPECIMEN Ordering Facility: [facility] Address: [address] [place] [address] Result Comment: This urine organic acid analysis shows slightly increased levels of lactate, ethylmalonate, hexanoylglycine, and 2-oxoadipic acid. The levels of glutarate, 2-hydroxyglutaric acid, and methylsuccinate are unremarkable. These findings are not diagnostic of a specific disorder but is indicative of a slight lactic aciduria. NOTE: The biochemical expression of urinary organic acids in the genetic organic acidurias can be dependent on the nutritional status of the subject, the underlying genetic abnormality that he/she may have, concurrent illnesses and other factors. This is also true for other disorders for which urinary organic acid analysis is sometimes a diagnostic tool such as disorders of mitochondrial oxidative phosphorylation, disorders of mitochondrial fatty acid beta-oxidation, and some nutritional deficiencies. Consequently and unless otherwise stated, a normal or non-diagnostic test result on urinary organic acid analysis does not always rule-out the possibility of the types of disorders noted above. This test was developed and its performance characteristics determined by the [facility]. It has not been cleared or approved by the [place] Food and Drug Administration. The FDA had determined that such clearance or approval is not necessary. Performed By: #### L [id number] #### [facility] CLIA [id number] [address] [place] [address] [place] UOA REVIEW Reviewed by Andrés Alexander PhD [facility] Comment on above: Order Comment: Speci men Type: URINE SPECIMEN Ordering Facility: [facility] Address: [address] [place] [address] Performed By: #### L [id number] #### [facility] CLIA [id number] [facility] [place] [address] [place] Uracil/Creatinine (U) [Molar ratio] 3.9 umol/mmolCr Normal 0.0-5.1 [facility] Comment on above: Order Comment: Speci men Type: URINE SPECIMEN Ordering Facility: [facility] Address: [address] [place] [address] Performed By: #### L [id number] #### [facility] CLIA [id number] [address] [place] [address] [place] PYRUVATE+LACTATE BLon 2022 Lactate [Moles/Vol] 1.5 mmol/L Normal 0.5-2.2 [facility] Comment on above: Order Comment: Speci men Type: BLOOD SPECIMEN Ordering Facility: [facility] Address: [address] [place] [address] Result Comment: This test was developed and its performance characteristics determined by [facility]'s [facility] [place] (-[facility]). It has not been cleared or approved by the FDA. -[facility] is regulated under CLIA as qualified to perform high-complexity testing. This test is used for clinical purposes. It should not be regarded as investigational or for research. Performed By: #### L ACPYR #### [facility] CLIA [id number] [address] [place] [address] [place] Pyruvate (Bld) [Moles/Vol] Normal [facility] Comment on above: Order Comment: Speci men Type: BLOOD SPECIMEN Ordering Facility: [facility] Address: [address] [place] [address] Result Comment: Unab le to assay. Analytical difficulty Performed By: #### L ACPYR #### [facility] CLIA [id number] [address] [place] [address] [place] T4 Free SerPl-mCncon 023 Free T4 [Mass/Vol] 1.2 ng/dL Normal 0.9-1.7 [facility] Comment on above: Order Comment: Speci men Type: BLOOD SPECIMEN Ordering Facility: [facility] Address: [address] [place] [address] Performed By: #### C ARNPL #### [facility] CLIA [id number] [address] [place] [address] [place] TSH SerPl-aCncon 01-06-2023 TSH Qn 1.960 m[IU]/L Normal 0.270-4.20 0 [facility] Comment on above: Order Comment: Kathia olsen Type: BLOOD SPECIMEN Ordering Facility: [facility] Address: [address] [place], [place] [address] Result Comment: If t he patient is , TSH reference range varies by gestational period: First Trimester (weeks 9-12): 0.180-2.990 mIU/L Second Trimester: 0.110-3.980 mIU/L Third Trimester: 0.480-4.710 mIU/L Stephon Phelps et al. A Practical Approach for the Verifications and Determination of Site- and Trimester-Specific Reference Intervals for Thyroid Function tests in . Thyroid, 2019:29:3:412-420. Jeremiah E, et al. 2017 Guidelines of the [place] [employer] for the Diagnosis and Management of Thyroid Disease during and the . Thyroid, 2017:27:3:315-389. Performed By: #### C JEANNETTE #### [facility] CLIA [id number] [address] [place] [address] [place] VOLTAGE GATED CA IGGon 01-06 P/Q-TYPE CALCIUM CHANNEL ANTIBODY 9.4 pmol/L Normal 0.0-24.5 [facility] Comment on above: Order Comment: Kathia olsen Type: BLOOD SPECIMEN Ordering Facility: [facility] Address: [address] [place], [place] [id number] Result Comment: INTE RPRETIVE INFORMATION: P/Q-Type Calcium Channel Antibody 0.0 to 24.5 pmol/L ............. Negative 24.6 to 45.6 pmol/L ............ Indeterminate 45.7 pmol/L or greater.......... Positive This test was developed and its performance characteristics determined by [facility]. It has not been cleared or approved by the [place] Food and Drug Administration. This test was performed in a CLIA certified laboratory and is intended for clinical purposes. Performed By: [facility] [address] [place] [id number] [address] Crib Lead: Silvano Melendrez MD, PhD Performed By: #### BRITTNY LÓPEZ #### StatusPage CLIA [id number] [place] [address] VOLTAGE-GATED POTASSIUM HUSAIN ABon 01-06-2023 VOLTAGE-GATED POTASSIUM CHANNEL AB, SER 0 pmol/L Normal 0-31 [facility] Comment on above: Order Comment: Speci men Type: BLOOD SPECIMEN Ordering Facility: [facility] Address: [address] [place] [id number] Result Comment: INTE RPRETIVE INFORMATION: Voltage-Gated Potassium Channel (VGKC) Antibody, Serum Negative ....... 31 pmol/L or less Indeterminate... 32 - 87 pmol/L Positive ....... 88 pmol/L or greater Voltage-Gated Potassium Channel (VGKC) antibodies are associated with neuromuscular weakness as found in neuromyotonia (also known as Issacs syndrome) and Morvan syndrome. VGKC antibodies are also associated with paraneoplastic neurological syndromes and limbic encephalitis; however, VGKC antibody-associated limbic encephalitis may be associated with antibodies to leucine-rich, glioma-inactivated 1 protein (LGI1) or contactin-associated protein-2 (CASPR2) instead of potassium channel antigens. A substantial number of VGKC-antibody positive cases are negative for LGI1 and CASPR2 IgG autoantibodies, not all VGKC complex antigens are known. The clinical significance of this test can only be determined in conjunction with the patient's clinical history and related laboratory testing. This test was developed and its performance characteristics determined by [facility]. It has not been cleared or approved by the [place] Food and Drug Administration. This test was performed in a CLIA certified laboratory and is intended for clinical purposes. Performed By: [facility] [address] [place] [address] Tool Crib Lead: Silvano Melendrez MD, PhD Performed By: #### V GKCAB #### [employer] CLIA [id number] [address] [place] [address] NM GASTRIC EMPTYING SOLIDon 10-14-2022 [facility] Absolute lymphocyte countOrd ered By: Sima Tatum on 09-10-2022 Lymphocytes Auto (Unsp spec) [#/Vol] 1.81 10*3/uL 0.83-4.51 [facility] Albumin Elph [Mass/Vol]Order ed By: Sima Tatum on 09-10-2022 Albumin [Mass/Vol] 4.2 g/dL 2.9-4.4 [facility] Atypical perinuclear antineu trophil cytoplasmic antibodies measurementOrdered By: Sima Tatum on 09-10-2022 Neutrophil cytoplasmic Ab.perinuclear.atypical IF (S) [Titer] <1:20 titer Neg:<1:20 [facility] Comment on above: The atypical pANCA p attern has been observed in asignificant percentage of patients with ulcerative colitis,primary sclerosing cholangitis and autoimmune hepatitis. Basophil percentageOrdered B y: Sima Tatum on 09-10-2022 Basophil percentage < 0.2 AI 0.0-0.9 [facility] Basophils/100 WBC (Bld) 0.4 % 0-1 [facility] Bilirubin [Mass/Vol] 0.20 mg/dL 0.20-1.00 [facility] Comment on above: For patients on eltr ombopag therapy, use of Dimension [place] TBIL is not recommended. Chloride [Moles/Vol] 109 mmol/L 98-107 [facility] Eosinophils/100 WBC (Bld) 1.8 % 0-5 [facility] Glucose [Mass/Vol] 107 mg/dL 74-106 [facility] Comment on above: Fasting Glucose resu lt from 100 to 125 mg/dL suggests IMPAIRED HOMEOSTASIS per A.D.A. criteria. LDH [Catalytic activity/Vol] 149 U/L 84-246 [facility] Neutrophils (Bld) [#/Vol] 5.4 10*3/uL 2.0-7.7 [facility] Neutrophils/100 WBC (Bld) 68.0 % 47-70 [facility] Potassium [Moles/Vol] 4.1 mmol/L 3.5-5.1 [facility] Protein [Mass/Vol] 7.7 g/dL 6.4-8.2 [facility] Sodium [Moles/Vol] 141 mmol/L 136-145 [facility] WBC (Bld) [#/Vol] 8.0 10*3/uL 4.4-11.0 [facility] Blood erythrocytes count (nu mber/volume)Ordered By: Sima Tatum on 09-10-2022 RBC (Bld) [#/Vol] 5.34 10*6/uL 4.2-5.4 [facility] Blood hemoglobin measurement (mass/volume)Ordered By: Sima Tatum on 09-10-2022 Hemoglobin (Bld) [Mass/Vol] 13.5 g/dL 12.0-15. 0 [facility] Blood lymphocytes/100 leukoc ytesOrdered By: Sima Tatum on 09-10-2022 Lymphocytes/100 WBC (Bld) 22.8 % 19-41 [facility] Blood monocytes/100 leukocyt esOrdered By: Sima Tatum on 09-10-2022 Monocytes/100 WBC (Bld) 6.7 % 0-10 [facility] Blood platelet mean volumeOr dered By: Sima Tatum on 09-10-2022 Platelet mean volume (Bld) [Entitic vol] 10.4 fL 6.2-12.0 [facility] Determination of erythrocyte mean corpuscular volume (MCV)Ordered By: Sima Tatum on 09-10-2022 MCV (RBC) [Entitic vol] 76.4 fL 81-99 [facility] [place] [facility] Erythrocyte sedimentation ra teOrdered By: Sima Tatum on 09-10-2022 ESR (Bld) [Velocity] 21 mm/h 0-30 [facility] Hematocrit Auto (Bld) [Volum e fraction]Ordered By: Sima Tatum on 09-10-2022 Hematocrit (Bld) [Volume fraction] 40.8 % 37-47 [facility] Interpretation of serum or p lasma protein pattern by immunofixation (narrative resultOrdered By: Sima Tatum on 09-10-2022 Protein Fractions Immunofixation Aedn [Interp] See comment [facility] Comment on above: Result: Not Observed Laboratory - Chemistry and C hemistry - challengeOrdered By: Sima Tatum on 09-10-2022 ALP [Catalytic activity/Vol] 76 U/L 45-117 [facility] ALT [Catalytic activity/Vol] 42 U/L 13-56 [facility] CO2 [Moles/Vol] 24.0 mmol/L 21.0-32.0 [facility] Free T4 [Mass/Vol] 0.82 ng/dL 0.76-1.46 [facility] Urea nitrogen/Creatinine [Mass ratio] 19.9 mg/mg 10-20 [facility] Laboratory - Hematology and Cell countsOrdered By: Sima Ttaum on 09-10-2022 Erythrocyte distribution width (RBC) [Entitic vol] 38.4 fL 35.1-43.9 [facility] Erythrocyte distribution width (RBC) [Ratio] 14.1 % 11.6-14.6 [facility] Immature granulocytes/100 WBC (Bld) 0.300 % 0.0-0.9 [facility] Comment on above: IG% - Immature Granu locytes (promyelocytes, myelocytes and metamyelocytes) > 1% indicates that a LEFT SHIFT is Present. MCH (RBC) [Entitic mass] 25.3 pg 27.0-32.0 [facility] Nucleated RBC/100 WBC (Bld) [Ratio] 0 % 0-5 [facility] MCHC Auto (RBC) [Mass/Vol]Or dered By: Sima Tatum on 09-10-2022 MCHC (RBC) [Mass/Vol] 33.1 g/dL 32-36 [facility] No Panel InformationOrdered By: Sima Tatum on 09-10-2022 Addendum Document Comment . [facility] Comment on above: Protein electrophore sis scan will follow via computer,mail, or front desk agent delivery. Centromere B Antibody <0.2 AI 0.0-0.9 [facility] Endomysial IgA Antibody Negative Negative [facility] Estimated GFR (MDRD) Amer 145 mL/min >60 [facility] Comment on above: GFR Calc Estimated GFR (MDRD) Non-Af Amer 120 mL/min >60 [facility] Comment on above: Non- GFR Calc Free Triiodothyronine (T3) pg/dL 2.6 pg/mL 2.18-3.98 [facility] Immunoglobulin E 9 IU/mL 6-495 [facility] Intrinsic Factor Antibody 1.0 AU/mL 0.0-1.1 [facility] CHILD LIFE ASSISTANT Antibody <0.2 AI 0.0-0.9 [facility] Thyroid Stimulating Hormone (TSH) 2.51 uIU/mL 0.358-3.74 [facility] Platelets bldOrdered By: Yina Tatum on 09-10-2022 Platelets (Bld) [#/Vol] 298 10*3/uL 150-450 [facility] Serum DNA double strand anti body assay (units/volume)Ordered By: Sima Tatum on 09-10-2022 DNA double strand Ab Qn (S) 1 [IU]/mL 0-9 [facility] Comment on above: Negative <5 Equivoca l 5 - 9 Positive >9 Serum Jaycee-1 antibody assay (u nits/volume)Ordered By: Sima Tatum on 09-10-2022 Jaycee-1 extractable nuclear Ab Qn (S) <0.2 AI 0.0-0.9 [facility] Serum Scl-70 extractable nuc lear antibody assay (units/volume)Ordered By: Sima Tatum on 09-10-2022 SCL-70 extractable nuclear Ab Qn (S) <0.2 AI 0.0-0.9 [facility] Serum Ma extractable nucl ear antibody detectionOrdered By: Sima Tatum on 09-10-2022 Ma extractable nuclear Ab Ql (S) <0.2 AI 0.0-0.9 [facility] Serum [id number] measu rement by electrophoresisOrdered By: Sima Tatum on 09-10-2022 Alpha 1 globulin Elph [Mass/Vol] 0.2 g/dL 0.0-0.4 [facility] Alpha 1 globulin Elph [Mass/Vol] 0.7 g/dL 0.4-1.0 [facility] Serum classic neutrophil cyt oplasmic antibody assay (units/volume)Ordered By: Sima Tatum on 09-10-2022 Neutrophil cytoplasmic Ab.classic Qn (S) <1:20 titer Neg:<1:20 [facility] Serum globulin measurement ( mass/volume)Ordered By: Sima Tatum on 09-10-2022 Globulin (S) [Mass/Vol] 2.8 g/dL 2.2-3.9 [facility] Serum mitochondria antibody detectionOrdered By: Sima Tatum on 09-10-2022 Mitochondria Ab Ql (S) <20.0 Units 0.0-20.0 [facility] [place] [facility] Comment on above: Negative 0.0 - 20.0 Equivocal 20.1 - 24.9 Positive >24.9Mitochondrial (M2) Antibodies are found in 90-96% ofpatients with primary biliary cirrhosis.Performed at: [facility] [address] [id number] Director: Jaden Lopez PhD, Phone: [phone] Serum or plasma C reactive p rotein measurement (mass/volume)Ordered By: Sima Tatum on 09-10-2022 CRP [Mass/Vol] mg/L 0.0-3.0 [facility] Comment on above: C-Reactive Protein ( CRP) provides useful information for thediagnosis, therapy and monitoring of inflammatory processesand associated diseases. For the evaluation of Relative Riskfor Cardiovascular Disease, a High Sensitivity CRP (HSCRP)should be ordered. Serum or plasma IgA measurem ent (mass/volume)Ordered By: Sima Tatum on 09-10-2022 IgA [Mass/Vol] 135 mg/dL 87-352 [facility] Serum or plasma IgG measurem ent (mass/volume)Ordered By: Sima Tatum on 09-10-2022 IgG [Mass/Vol] 851 mg/dL [phone] [facility] Serum or plasma IgM measurem ent (mass/volume)Ordered By: Sima Tatum on 09-10-2022 IgM [Mass/Vol] 37 mg/dL 26-217 [facility] Serum or plasma actin IgG an tibody assay (units/volume)Ordered By: Sima Tatum on 09-10-2022 Actin IgG Qn 6 Units 0-19 [facility] Comment on above: Negative 0 - 19 Weak positive 20 - 30 Moderate to strong positive >30 Actin Antibodies are found in 52-85% of patients with autoimmune hepatitis or chronic active hepatitis and in 22% of patients with primary biliary cirrhosis. Serum or plasma albumin charu urement (mass/volume)Ordered By: Sima Tatum on 09-10-2022 Albumin [Mass/Vol] 4.0 g/dL 3.2-5.0 [facility] Serum or plasma albumin/glob ulin mass ratioOrdered By: Sima Tatum on 09-10-2022 Albumin/Globulin [Mass ratio] 1.1 {ratio} 0.9-2.4 [facility] Serum or plasma beta globuli n measurement by electrophoresis (mass/volume)Ordered By: Sima Tatum on 09-10-2022 Beta globulin Elph [Mass/Vol] 1.3 g/dL 0.7-1.3 [facility] Serum or plasma calcium charu urement (mass/volume)Ordered By: Sima Tatum on 09-10-2022 Calcium [Mass/Vol] 9.5 mg/dL 8.5-10.1 [facility] Serum or plasma creatinine m easurement (mass/volume)Ordered By: Sima Tatum on 09-10-2022 Creatinine [Mass/Vol] 0.60 mg/dL 0.55-1.02 [facility] Comment on above: The validity of the calculated GFR & GFRAA in patients over 70 years has not been determined. Clinical correlation is essential. Serum or plasma gamma globul in measurement by electrophoresis (mass/volume)Ordered By: Sima Tatum on 09-10-2022 Gamma globulin Elph [Mass/Vol] 0.6 g/dL 0.4-1.8 [facility] Serum or plasma immunoelectr ophoresis interpretation (nominal result)Ordered By: Sima Tatum on 09-10-2022 Interpretation IEP [Interp] Comment . [facility] Comment on above: No monoclonality det ected. Serum or plasma thyroperoxid ase antibody assay (units/volume)Ordered By: Sima Tatum on 09-10-2022 TPO Ab Qn 13 [IU]/mL 0-34 [facility] Comment on above: Performed at: - [address] [id number] Director: Jaden Lopez PhD, Phone: [phone] at: - [facility] [address] [id number] Director: Villa Hunt MD, Phone: [phone] Serum or plasma urea nitroge n measurement (mass/volume)Ordered By: Sima Tatum on 09-10-2022 Urea nitrogen [Mass/Vol] 12 mg/dL 7-18 [facility] Serum parietal cell antibody assay (units/volume)Ordered By: Sima Tatum on 09-10-2022 Parietal cell Ab Qn (S) 1.6 Units 0.0-20.0 [facility] Comment on above: Negative 0.0 - 20.0 Equivocal 20.1 - 24.9 Positive >24.9Parietal Cell Antibodies are found in 90% of patientswith pernicious anemia and 30% of first degreerelatives with pernicious anemia. Serum perinuclear neutrophil cytoplasmic antibody titer by immunofluorescenceOrdered By: Sima Tatum on 09-10-2022 Neutrophil cytoplasmic Ab.perinuclear IF (S) [Titer] <1:20 titer Neg:<1:20 [facility] Comment on above: The presence of posi tive fluorescence exhibiting P-ANCA orC-ANCA patterns alone is not specific for the diagnosis ofWegener's Granulomatosis (WG) or microscopic polyangiitis.Decisions about treatment should not be based solely onANCA IFA results. The International ANCA Group Consensusrecommends follow up testing of positive sera with both AR-3 and MPO-ANCA enzyme immunoassays. As many as 5% serumsamples are positive only by EIA. Ref. AM J Clin [id number];111:507-513. Serum tissue transglutaminas e IgA antibody assay (units/volume)Ordered By: Sima Tatum on 09-10-2022 tTG IgA Qn (S) <2 U/mL 0-3 [facility] Comment on above: Negative 0 - 3 Weak Positive 4 - 10 Positive >10 Tissue Transglutaminase (tTG) has been identified as the endomysial antigen. Studies have demonstr- ated that endomysial IgA antibodies have over 99% specificity for gluten sensitive enteropathy. Thin prep Papanicolaou smear with manual screeningOrdered By: Sima Tatum on 09-10-2022 Thin prep Papanicolaou smear with manual screening 27 U/L 15-37 [facility] Thin prep Papanicolaou smear with manual screening 8 5-15 [facility] Thin prep Papanicolaou smear with manual screening 1.6 0.7-1.7 [facility] Total protein bloodOrdered B y: Sima Tatum on 09-10-2022 Protein [Mass/Vol] 7.0 g/dL 6.0-8.5 [facility] Whole blood hemoglobin A1c/t otal hemoglobin ratio (mass fraction)Ordered By: Sima Tatum on 09-10-2022 HbA1c (Bld) [Mass fraction] 5.5 % 3.8-5.6 [facility] Comment on above: Normal < 5.7 % Predi abetic 5.7 - 6.4 % Diabetic >or= 6.5 % Please note range changes. Laboratory - Chemistry and C hemistry - challengeOrdered By: Dr. Andrews on 08-18-2022 HCG ( test) Ql (U) Negative [facility] Comment on above: Very dilute urine sp ecimens, as indicated by a low specificgravity, may not contain door to door sales representative levels of hCG. If is still suspected, a first morning urinespecimen should be collected 48 hours later and tested. XR ESOPHAGRAMon 10-15-2021 XR ESOPHAGRAM * * *Final Report* * * DATE OF EXAM: Oct 15 2021 8:55AM MDX 5378 - XR ESOPHAGRAM / PROCEDURE REASON: R13.12-Oropharyngeal dysphagia * * * * Physician Interpretation * * * * Esophagram HISTORY: Indication: Oropharyngeal dysphagia TECHNIQUE: Fluoroscopic Radiation Summary: Plane A, Air Kerma: 40.0 mGy Dose Area Product (DAP): 6779.0 mGy*cm^2 Fluoro time: 2:24 min:sec Images obtained: Multiple spot film images under fluoroscopic guidance. Comparison: NONE. RESULT: Findings: Esophagus: Swallowing function unremarkable.. Small sliding-type hiatal hernia is seen. No gastroesophageal reflux identified. Stomach: The stomach showed no evidence of persistent filling defects,ulceration or mass lesions. IMPRESSION: 1. Small sliding-type hiatal hernia 2. No evidence of gastroesophageal reflux Rolloff Driver: PSCB Transcribe Date/Time: Oct 15 2021 10:03A Dictated by : AUGUSTINA MALAVE DO This examination was interpreted and the report reviewed and electronically signed by: AUGUSTINA MALAVE DO on Oct 15 2021 10:03AM EST [id number] N Normal [facility] CBC and Differentialon 12-30 Abs Baso 0.04 k/uL Normal <0.11 [facility] Reference Lab Comment on above: Performed By: #### M ICRO, TSH, DHEAS, CMP, CBCDIF, COR, HSCRP, FREET3, FT4 #### [facility] Routine Lab [address] [place] [phone] Abs [place] 0.41 k/uL Normal <0.87 [facility] Reference Lab Comment on above: Performed By: #### M ICRO, TSH, DHEAS, CMP, CBCDIF, COR, HSCRP, FREET3, FT4 #### [facility] Routine Lab [address] [place] [phone] Abs Neut 4.13 k/uL Normal 1.45-7.50 [facility] Reference Lab Comment on above: Performed By: #### M ICRO, TSH, DHEAS, CMP, CBCDIF, COR, HSCRP, FREET3, FT4 #### [facility] Routine Lab [address] [place] [phone] Absolute nRBC <0.01 Normal <0.01 [facility] Reference Lab Comment on above: Performed By: #### M ICRO, TSH, DHEAS, CMP, CBCDIF, COR, HSCRP, FREET3, FT4 #### [facility] Routine Lab [address] [place] [phone] Basophils/100 WBC (Bld) 0.6 % Normal [facility] Comment on above: Performed By: #### M ICRO, TSH, DHEAS, CMP, CBCDIF, COR, HSCRP, FREET3, FT4 #### [facility] Routine Lab [address] [place] [phone] DTYPE ADIFF Normal [facility] Reference Lab Comment on above: Performed By: #### M ICRO, TSH, DHEAS, CMP, CBCDIF, COR, HSCRP, FREET3, FT4 #### [facility] Routine Lab [address] [place] [phone] Eosinophils (Bld) [#/Vol] 0.14 10*3/uL Normal <0.46 [facility] Reference Lab Comment on above: Performed By: #### M ICRO, TSH, DHEAS, CMP, CBCDIF, COR, HSCRP, FREET3, FT4 #### [facility] Routine Lab [address] [phone] Eosinophils/100 WBC (Bld) 2.2 % Normal [facility] Reference Lab Comment on above: Performed By: #### M ICRO, TSH, DHEAS, CMP, CBCDIF, COR, HSCRP, FREET3, FT4 #### [facility] Routine Lab [address] [phone] Erythrocyte distribution width (RBC) [Ratio] 13.3 % Normal 11.5-15.0 [facility] Reference Lab Comment on above: Performed By: #### M ICRO, TSH, DHEAS, CMP, CBCDIF, COR, HSCRP, FREET3, FT4 #### [facility] Routine Lab [address] [place] [phone] Hematocrit (Bld) [Volume fraction] 45.1 % Normal 36.0-46.0 [facility] Reference Lab Comment on above: Performed By: #### M ICRO, TSH, DHEAS, CMP, CBCDIF, COR, HSCRP, FREET3, FT4 #### [facility] Routine Lab [address] [place] [phone] Hemoglobin (Bld) [Mass/Vol] 14.4 g/dL Normal 11.5-15. 5 [facility] Reference Lab Comment on above: Performed By: #### M ICRO, TSH, DHEAS, CMP, CBCDIF, COR, HSCRP, FREET3, FT4 #### [facility] Routine Lab [address] [place] [phone] Lymphocytes (Bld) [#/Vol] 1.62 10*3/uL Normal 1.00-4.0 0 [facility] Reference Lab Comment on above: Performed By: #### M ICRO, TSH, DHEAS, CMP, CBCDIF, COR, HSCRP, FREET3, FT4 #### [facility] Routine Lab [address] [place], [place] [phone] Lymphocytes/100 WBC (Bld) 25.5 % Normal [facility] Reference Lab Comment on above: Performed By: #### M ICRO, TSH, DHEAS, CMP, CBCDIF, COR, HSCRP, FREET3, FT4 #### [facility] Routine Lab [address] [place], [place] [address] MCH 26.9 pG Normal 26.0-34.0 [facility] Reference Lab Comment on above: Performed By: #### M ICRO, TSH, DHEAS, CMP, CBCDIF, COR, HSCRP, FREET3, FT4 #### [facility] Routine Lab [address] [place] [address] MCHC (RBC) [Mass/Vol] 31.9 g/dL Normal 30.5-36.0 [facility] Reference Lab Comment on above: Performed By: #### M ICRO, TSH, DHEAS, CMP, CBCDIF, COR, HSCRP, FREET3, FT4 #### [facility] Routine Lab [address] [place] [address] MCV (RBC) [Entitic vol] 84.1 fL Normal 80.0-100.0 [facility] Reference Lab Comment on above: Performed By: #### M ICRO, TSH, DHEAS, CMP, CBCDIF, COR, HSCRP, FREET3, FT4 #### [facility] Routine Lab [address] [place] [address] Monocytes/100 WBC (Bld) 6.4 % Normal C [facility] Reference Lab Comment on above: Performed By: #### M ICRO, TSH, DHEAS, CMP, CBCDIF, COR, HSCRP, FREET3, FT4 #### [facility] Routine Lab [address] [place], [place] [address] Neutrophils/100 WBC (Bld) 65.3 % Normal [facility] Reference Lab Comment on above: Performed By: #### M ICRO, TSH, DHEAS, CMP, CBCDIF, COR, HSCRP, FREET3, FT4 #### [facility] Routine Lab [address] [place], [place] [address] NRBCs 0.0 /100 WBC Normal 0 [facility] Reference Lab Comment on above: Performed By: #### M ICRO, TSH, DHEAS, CMP, CBCDIF, COR, HSCRP, FREET3, FT4 #### [facility] Routine Lab [address] [place], [place] [address] Platelet mean volume (Bld) [Entitic vol] 11.3 fL Normal 9.0-12.7 [facility] Reference Lab Comment on above: Performed By: #### M ICRO, TSH, DHEAS, CMP, CBCDIF, COR, HSCRP, FREET3, FT4 #### [facility] Routine Lab [address] [place] [address] Platelets (Bld) [#/Vol] 253 10*3/uL Normal 150-400 [facility] Reference Lab Comment on above: Performed By: #### M ICRO, TSH, DHEAS, CMP, CBCDIF, COR, HSCRP, FREET3, FT4 #### [facility] Routine Lab [address] [place] [address] RBC (Bld) [#/Vol] 5.36 10*6/uL High 3.90-5.20 [facility] Reference Lab Comment on above: Performed By: #### M ICRO, TSH, DHEAS, CMP, CBCDIF, COR, HSCRP, FREET3, FT4 #### [facility] Routine Lab [address] [place] [address] WBC (Bld) [#/Vol] 6.36 10*3/uL Normal 3.70-11.00 [facility] Reference Lab Comment on above: Performed By: #### M ICRO, TSH, DHEAS, CMP, CBCDIF, COR, HSCRP, FREET3, FT4 #### [facility] Routine Lab [address] [place] [id number] Comp Metabolic Panelon 12-30 Albumin [Mass/Vol] 4.6 g/dL Normal 3.9-4.9 [facility] Reference Lab Comment on above: Performed By: #### M ICRO, TSH, DHEAS, CMP, CBCDIF, COR, HSCRP, FREET3, FT4 #### [facility] Routine Lab [address] [place], [place] [address] ALP [Catalytic activity/Vol] 65 U/L Normal 34-123 [facility] Reference Lab Comment on above: Performed By: #### M ICRO, TSH, DHEAS, CMP, CBCDIF, COR, HSCRP, FREET3, FT4 #### [facility] Routine Lab [address] [place], [place] [address] ALT [Catalytic activity/Vol] 28 U/L Normal 7-38 [facility] Reference Lab Comment on above: Performed By: #### M ICRO, TSH, DHEAS, CMP, CBCDIF, COR, HSCRP, FREET3, FT4 #### [facility] Routine Lab [address] [place], [place] [address] Anion gap [Moles/Vol] 12 mmol/L Normal 9-18 [facility] Reference Lab Comment on above: Performed By: #### M ICRO, TSH, DHEAS, CMP, CBCDIF, COR, HSCRP, FREET3, FT4 #### [facility] Routine Lab [address] [place], [place] [address] AST [Catalytic activity/Vol] 28 U/L Normal 13-35 [facility] Reference Lab Comment on above: Performed By: #### M ICRO, TSH, DHEAS, CMP, CBCDIF, COR, HSCRP, FREET3, FT4 #### [facility] Routine Lab [address] [place], [place] [address] Bilirubin [Mass/Vol] 0.3 mg/dL Normal 0.2-1.3 [facility] Reference Lab Comment on above: Performed By: #### M ICRO, TSH, DHEAS, CMP, CBCDIF, COR, HSCRP, FREET3, FT4 #### [facility] Routine Lab [address] [place] [address] Calcium [Mass/Vol] 9.3 mg/dL Normal 8.5-10.2 [facility] Reference Lab Comment on above: Performed By: #### M ICRO, TSH, DHEAS, CMP, CBCDIF, COR, HSCRP, FREET3, FT4 #### [facility] Routine Lab [address] [place] [address] Chloride [Moles/Vol] 106 mmol/L High 97-105 [facility] Reference Lab Comment on above: Performed By: #### M ICRO, TSH, DHEAS, CMP, CBCDIF, COR, HSCRP, FREET3, FT4 #### [facility] Routine Lab [address] [place] [address] CO2 [Moles/Vol] 20 mmol/L Low 22-30 [facility] Reference Lab Comment on above: Performed By: #### M ICRO, TSH, DHEAS, CMP, CBCDIF, COR, HSCRP, FREET3, FT4 #### [facility] Routine Lab [address] [place] [address] Creatinine [Mass/Vol] 0.57 mg/dL Low 0.58-0.96 [facility] Reference Lab Comment on above: Performed By: #### M ICRO, TSH, DHEAS, CMP, CBCDIF, COR, HSCRP, FREET3, FT4 #### [facility] Routine Lab [address] [place] [address] eGFR- Amer. >60 Normal [facility] Reference Lab Comment on above: Performed By: #### M ICRO, TSH, DHEAS, CMP, CBCDIF, COR, HSCRP, FREET3, FT4 #### [facility] Routine Lab [address] [place], [place] [id number] eGFR-All Other Races >60 Normal [facility] Reference Lab Comment on above: Performed By: #### M ICRO, TSH, DHEAS, CMP, CBCDIF, COR, HSCRP, FREET3, FT4 #### [facility] Routine Lab [address] [place], [place] [address] Glucose [Mass/Vol] 88 mg/dL Normal 74-99 [facility] Reference Lab Comment on above: Performed By: #### M ICRO, TSH, DHEAS, CMP, CBCDIF, COR, HSCRP, FREET3, FT4 #### [facility] Routine Lab [address] [place], [place] [address] Potassium [Moles/Vol] 4.3 mmol/L Normal 3.7-5.1 [facility] Reference Lab Comment on above: Performed By: #### M ICRO, TSH, DHEAS, CMP, CBCDIF, COR, HSCRP, FREET3, FT4 #### [facility] Routine Lab [address] [place], [place] [address] Protein [Mass/Vol] 6.9 g/dL Normal 6.3-8.0 [facility] Reference Lab Comment on above: Performed By: #### M ICRO, TSH, DHEAS, CMP, CBCDIF, COR, HSCRP, FREET3, FT4 #### [facility] Routine Lab [address] [place], [place] [address] Sodium [Moles/Vol] 138 mmol/L Normal 136-144 [facility] Reference Lab Comment on above: Performed By: #### M ICRO, TSH, DHEAS, CMP, CBCDIF, COR, HSCRP, FREET3, FT4 #### [facility] Routine Lab [address] [place], [place] [address] Urea nitrogen [Mass/Vol] 14 mg/dL Normal 7-21 [facility] Reference Lab Comment on above: Performed By: #### M ICRO, TSH, DHEAS, CMP, CBCDIF, COR, HSCRP, FREET3, FT4 #### [facility] Routine Lab [address] [place], [place] [address] Cortisolon 12-30-2020 Cortisol 12.1 ug/dL Normal 4.8-19.5 [facility] Reference Lab Comment on above: Performed By: #### M ICRO, TSH, DHEAS, CMP, CBCDIF, COR, HSCRP, FREET3, FT4 #### [facility] Routine Lab [address] [place] [id number] DHEA-Son 12-30-2020 DHEA-S 64.1 ug/dL Low 98.8-340.0 [facility] Reference Lab Comment on above: Performed By: #### M ICRO, TSH, DHEAS, CMP, CBCDIF, COR, HSCRP, FREET3, FT4 #### [facility] Routine Lab [address] [place] [address] Free T3on 12-30-2020 Free T3 [Mass/Vol] 3.5 pg/mL Normal 2.3-4.1 [facility] Reference Lab Comment on above: Performed By: #### M ICRO, TSH, DHEAS, CMP, CBCDIF, COR, HSCRP, FREET3, FT4 #### [facility] Routine Lab [address] [place] [address] Free T4on 12-30-2020 Free T4 [Mass/Vol] 0.9 ng/dL Normal 0.9-1.7 [facility] Reference Lab Comment on above: Performed By: #### M ICRO, TSH, DHEAS, CMP, CBCDIF, COR, HSCRP, FREET3, FT4 #### [facility] Routine Lab [address] [place] [address] TPO Antibodyon 12-30-2020 TPO Antibody <1.0 Normal <5.6 [facility] Reference Lab Comment on above: Performed By: #### M ICRO, TSH, DHEAS, CMP, CBCDIF, COR, HSCRP, FREET3, FT4 #### [facility] Routine Lab [address] [place] [address] TSHon 12-30-2020 TSH Qn 2.740 m[IU]/L Normal 0.270-4.20 0 [facility] Reference Lab Comment on above: Performed By: #### M ICRO, TSH, DHEAS, CMP, CBCDIF, COR, HSCRP, FREET3, FT4 #### [facility] Routine Lab [address] [place], [place] [address] Ultra-sensitive CRPon 2020 UltraSens C-ReacProt 0.5 mg/L Normal <3.1 [facility] Reference Lab Comment on above: Performed By: #### M ICRO, TSH, DHEAS, CMP, CBCDIF, COR, HSCRP, FREET3, FT4 #### [facility] Routine Lab [address] [place], [place] [address] NOVEL CORONAVIRUS NASOPHARYN GEAL - [facility] SPECIMEN ONLYon 03-26-2020 SARS-COV-2 NOT DETECTED Normal NOT DETECTED [facility] Comment on above: Order Comment: Viral transport media - Collection must be done while wearing N-95 mask, eye protection, gown and gloves. Please label ALL specimens as 2019-nCoV rule out and deliver by hand. This test was performed using real time PCR and has been approved for the qualitative detection of SARS-CoV-2 nucleic acid. The test has been authorized by the FDA under an emergency use authorization for use by authorized laboratories. Result Comment: Nega tive results do not preclude SARS-CoV-2 infection and should not be used as the sole basis for treatment or other patient management decisions. Optimum specimen types and timing for peak viral levels during infections caused by SARS-CoV-2 has not been determined. The possibility of a false negative result should especially be considered if the patient's recent exposures or clinical presentation suggest that SARS-CoV-2 infection is probable, and diagnostic tests for other causes of illness (e.g., other respiratory illness) are negative. Collection of a new specimen and re-testing may be necessary if the patient is critically ill or clinically deteriorating. Performed By: #### L [id number] #### [facility] (DEFAULT) [address] [place] [id number] PROGRESSon 09-22-2017 PROGRESS HNO ID: [id number]: Jillian (Rt) Jesus, TechService: RadiologyAuthor Type: TechnicianType: Progress NotesFiled: 09/22/2017 11:26 AMNote Text: Radiology Service Progress NotePATIENT NAME: Forest NguyenMRN: [id number] OF SERVICE: September 22, 2017TIME: 11:26 AMPATIENT IDENTITY VERIFICATION COMPLETED USING TWO (2) METHODS: Patientconfirmed name verbally and Date of .PATIENT GENDER DATA: Female. status: : NoBreastfeeding status: NO.PATIENT RELEVANT IMPLANT DATA REVIEWED: Not ApplicableRADIOLOGY DEPARTMENT: Ultrasound RENALPERIPHERAL IV DATA: Not applicableSIGNED BY: Jillian Lee RTFebruary 2017 11:26 AM [facility] US KIDNEY/BLADDERon 09-22-19 US KIDNEY/BLADDER * * *Final Report* * *DATE OF EXAM: Sep 22 2017 11:22AM [facility] 1055 - US KIDNEY/BLADDER / REASON: Essential (primary) hypertension * * * * Physician Interpretation * * * * RENAL ULTRASOUNDHISTORY: HypertensionCOMPARISO N: None.TECHNIQUE: Sonography of the kidneys and urinary bladder was performed. Images were obtained and stored in a permanent archive.RESULT:Right Kidney: -Renal length: 10.7 cm. -Parenchyma: Renal parenchyma echogenicity is normal. -Cortical thickness: Normal. -No hydronephrosis. -Calculus: No echogenic, shadowing calculus. -Renal Lesion: None.Left Kidney: -Renal length: 11.7 cm. -Cortical thickness: Normal. -No hydronephrosis. -Calculus: No echogenic, shadowing calculus. Probable arterial calcifications. -Renal Lesion: None.Bladder: Normal sonographic appearance.IMPRESSION : NO ACUTE RENAL ABNORMALITIESTranscri ptionist: PSCB Transcribe Date/Time: Sep 22 2017 11:36ADictated by : DIEGO HE MDThis examination was interpreted and the report reviewed and electronically signed by: DIEGO HE MD on Sep 22 2017 11:37AM [id number] [facility] CT HEAD OR BRAIN WITHOUT CON TRASTon 08-30-2017 CT HEAD OR BRAIN WITHOUT CONTRAST EXAMINATION:CT OF THE HEAD WITHOUT CONTRAST 08/30/2017TECHNIQUE:CT of the head was performed without the administration of intravenous contrast. Dose modulation, iterative reconstruction, and/or weight based adjustment of the mA/kV was utilized to reduce the radiation dose to as low as reasonably achievable.COMPARISON :None.HISTORY:BHARATI Peña SYSTEM PROVIDED HISTORY: elevated blood pressure, vision changes; TECHNOLOGIST PROVIDED HISTORY: Reason for Exam: Pt with c/o left sided chest pain that started following blurred vision. Pt states has had intermittent chest pain for 3 to 4 weeks, Pt denies sob, nausea or diaphoresis pt states will radiate to right side of chest at times. Pt states had blood pressure medication changed 2weeks ago Illness/Other Acuity: Acute Type of Encounter: Initial Additional signs and symptoms: Pt arrives ambulatory to room gait steady. Pt states at approximately 6pm noticed was having blurred dot like areas with her vision. States took out her contacts put on her glasses and the blurred vision continued. Pt states the episode lasted approx 10 to 15 min. Pt denies n/t or weakness. Pt cites history of uncontrolled htn.FINDINGS:BRAIN/VE NTRICLES: No acute intracranial hemorrhage or extraaxial fluid collection. Cloud-white differentiation is maintained. No evidence of mass, mass effect or midline shift. No evidence of hydrocephalus.ORBITS: The visualized portion of the orbits demonstrate no acute abnormality.SINUSES: The visualized paranasal sinuses and mastoid air cells demonstrate no acute abnormality.SOFT TISSUES/SKULL: No acute abnormality of the visualized skull or soft tissues.IMPRESSION:No acute intracranial abnormality.Workstati on ID: [id number] by: DIEGO MARCUS on TueAug 30, 2017 8:13:10 PM ESTTranscribed by: DIEGO MARCUS on TueAug 30, 2017 8:13:10 PM ESTFinalized by: DIEGO MARCUS on TueAug 30, 2017 8:13:[address] [facility] Comment on above: Order Comment: Reaso n for exam?:Pt with c/o left sided chest pain that started following blurred vision. Pt states has had intermittent chest pain for 3 to 4 weeks, Pt denies sob, nausea or diaphoresis pt states will radiate to right side of chest at times. Pt states had blood pressure medication changed 2weeks agoInjury/Trauma or Illness?:Illness/OtherHow long have you had these symptoms (acute/chronic)?:AcuteType of Exam?:InitialAdditional signs and symptoms?:Pt arrives ambulatory to room gait steady. Pt states at approximately 6pm noticed was having blurred dot like areas with her vision. States took out her contacts put on her glasses and the blurred vision continued. Pt states the episode lasted approx 10 to 15 min. Pt denies n/t or weakness. Pt cites history of uncontrolled htn. XR CHEST PA/APon 08-30-2017 XR CHEST PA/AP EXAMINATION:SINGLE VIEW OF THE CHEST 08/30/2017 7:56 pmCOMPARISON:None.HIS TORY:ORDERING SYSTEM PROVIDED HISTORY: vision change, elevated blood pressure; TECHNOLOGIST PROVIDED HISTORY: Reason for Exam: blurred vision Illness/Other Acuity: Acute Cancer History: n Surgery, Radiation History: n Type of Encounter: Initial Additional signs and symptoms: nFINDINGS:The cardiomediastinal silhouette is normal in sizeLungs are clear.No pleural effusion or pneumothorax is present.IMPRESSION:No acute cardiopulmonary processWorkstation ID: [id number] by: DIEGO GLYNN on TueAug 30, 2017 8:22:26 PM ESTTranscribed by: DIEGO GLYNN on TueAug 30, 2017 8:22:26 PM ESTFinalized by: DIEGO GLYNN on TueAug 30, 2017 8:22:[address] [facility] Comment on above: Order Comment: Reaso n for exam?:blurred visionInjury/Trauma or Illness?:Illness/OtherHow long have you had these symptoms (acute/chronic)?:AcuteHistory of cancer?:nSurgeries, chemotherapy, or radiation?:nType of Exam?:InitialAdditional signs and symptoms?:n DDI VIBRATION CONTROLLED TRA NSIENT ELASTOGRAPHY (VCTE) [facility] Vital Signs Date Time Vital Sign Value Performing Clinician Facility 01-10-2025 07:28-0400 Body mass index (BMI) [Ratio] 35.68 kg/m2 Jaclyn Ivory APRN.CNP Work Phone: [facility] 01-10-2025 07:28-0400 Body weight 80.29 kg Jaclyn Ivory APRN.CNP Work Phone: [facility] 01-10-2025 07:28-0400 Diastolic blood pressure 88 mm[Hg] Jaclyn Ivory APRN.ENVIRONMENTAL REMEDIATION ENGINEER Work Phone: [facility] 01-10-2025 07:28-0400 Heart rate 94 /min Jaclyn Ivory APRN.ENVIRONMENTAL REMEDIATION ENGINEER Work Phone: [facility] 01-10-2025 07:28-0400 Respiratory rate 16 /min Jaclyn Ivory APRN.ENVIRONMENTAL REMEDIATION ENGINEER Work Phone: [facility] 01-10-2025 07:28-0400 SaO2% (BldA) [Mass fraction] 98 % Jaclyn Ivory APRN.ENVIRONMENTAL REMEDIATION ENGINEER Work Phone: [facility] 01-10-2025 07:28-0400 Systolic blood pressure 132 mm[Hg] Jaclyn Ivory APRN.ENVIRONMENTAL REMEDIATION ENGINEER Work Phone: [facility] 11-29-2024 14:05-0400 Diastolic blood pressure 97 mm[Hg] Jaclyn Ivory APRN.ENVIRONMENTAL REMEDIATION ENGINEER Work Phone: [facility] 11-29-2024 14:05-0400 Systolic blood pressure 152 mm[Hg] Jaclyn Ivory APRN.ENVIRONMENTAL REMEDIATION ENGINEER Work Phone: [facility] 11-29-2024 13:17-0400 Body mass index (BMI) [Ratio] 34.88 kg/m2 Jaclyn Ivory APRN.ENVIRONMENTAL REMEDIATION ENGINEER Work Phone: [facility] 11-29-2024 13:17-0400 Body weight 78.47 kg Jaclyn Ivory APRN.ENVIRONMENTAL REMEDIATION ENGINEER Work Phone: [facility] 11-29-2024 13:17-0400 Heart rate 92 /min Jaclyn Ivory APRN.ENVIRONMENTAL REMEDIATION ENGINEER Work Phone: [facility] 11-29-2024 13:17-0400 SaO2% (BldA) [Mass fraction] 99 % Jaclyn Ivory APRN.ENVIRONMENTAL REMEDIATION ENGINEER Work Phone: [facility] 10-31-2024 06:58-0400 Body mass index (BMI) [Ratio] 35.08 kg/m2 Jaclyn Ivory APRN.ENVIRONMENTAL REMEDIATION ENGINEER Work Phone: [facility] 10-31-2024 06:58-0400 Body weight 78.93 kg Jaclyn Ivory APRN.ENVIRONMENTAL REMEDIATION ENGINEER Work Phone: [facility] 10-31-2024 06:58-0400 Diastolic blood pressure 88 mm[Hg] Jaclyn Ivory APRN.ENVIRONMENTAL REMEDIATION ENGINEER Work Phone: [facility] 10-31-2024 06:58-0400 Heart rate 98 /min Jaclyn Ivory APRN.ENVIRONMENTAL REMEDIATION ENGINEER Work Phone: [facility] 10-31-2024 06:58-0400 SaO2% (BldA) [Mass fraction] 97 % Jaclyn Ivory APRN.ENVIRONMENTAL REMEDIATION ENGINEER Work Phone: [facility] 10-31-2024 06:58-0400 Systolic blood pressure 142 mm[Hg] Jaclyn Ivory APRN.ENVIRONMENTAL REMEDIATION ENGINEER Work Phone: [facility] 10-02-2024 07:38-0500 Body height 150 cm Jaclyn Ivory APRN.ENVIRONMENTAL REMEDIATION ENGINEER Work Phone: [facility] 10-02-2024 07:38-0500 Body mass index (BMI) [Ratio] 34.27 kg/m2 Jaclyn Ivory APRN.ENVIRONMENTAL REMEDIATION ENGINEER Work Phone: [facility] 10-02-2024 07:38-0500 Body weight 77.11 kg Jaclyn Ivory APRN.ENVIRONMENTAL REMEDIATION ENGINEER Work Phone: [facility] 10-02-2024 07:38-0500 Diastolic blood pressure 98 mm[Hg] Jaclyn Ivory APRN.ENVIRONMENTAL REMEDIATION ENGINEER Work Phone: [facility] 10-02-2024 07:38-0500 Heart rate 97 /min Jaclyn Ivory APRN.ENVIRONMENTAL REMEDIATION ENGINEER Work Phone: [facility] 10-02-2024 07:38-0500 SaO2% (BldA) [Mass fraction] 98 % Jaclyn Ivory APRN.ENVIRONMENTAL REMEDIATION ENGINEER Work Phone: [facility] 10-02-2024 07:38-0500 Systolic blood pressure 154 mm[Hg] Jaclyn Ivory APRN.ENVIRONMENTAL REMEDIATION ENGINEER Work Phone: [facility] 06-13-2024 14:18-0400 Body height 149.9 cm Sima Milligan MD Work Phone: [facility] 06-13-2024 14:18-0400 Body mass index (BMI) [Ratio] 35.55 kg/m2 Sima Milligan MD Work Phone: [facility] 06-13-2024 14:18-0400 Body weight 79.83 kg Sima Milligan MD Work Phone: [facility] 06-13-2024 14:18-0400 Diastolic blood pressure 102 mm[Hg] Sima Milligan MD Work Phone: [facility] 06-13-2024 14:18-0400 Systolic blood pressure 164 mm[Hg] Sima Milligan MD Work Phone: [facility] 05-28-2023 11:07-0400 Body weight 75.3 kg Lydia Gaona PA-C Work Phone: [facility] 02-09-2023 15:15-0400 Body temperature 97 [degF] Suzi Grubic DO Work Phone: [facility] 02-09-2023 15:15-0400 Diastolic blood pressure 87 mm[Hg] Suzi Grubic DO Work Phone: [facility] 02-09-2023 15:15-0400 Heart rate 89 /min Suzi Grubic DO Work Phone: [facility] 02-09-2023 15:15-0400 Respiratory rate 16 /min Suzi Grubic DO Work Phone: [facility] 02-09-2023 15:15-0400 SaO2% (BldA) [Mass fraction] 97 % Suzi Grubic DO Work Phone: [facility] 02-09-2023 15:15-0400 Systolic blood pressure 134 mm[Hg] Suzi Grubic DO Work Phone: [facility] 02-09-2023 12:16-0400 Body height 149.9 cm Suzi Watkins DO Work Phone: [facility] 02-09-2023 12:16-0400 Body weight 81.65 kg Suzi Watkins DO Work Phone: [facility] 2023 20:03-0400 Diastolic blood pressure 98 mm[Hg] [facility] 2023 20:03-0400 Heart rate 75 /min [facility] 2023 20:03-0400 Respiratory rate 15 /min [facility] 2023 20:03-0400 SaO2% (BldA) [Mass fraction] 94 % [facility] 2023 20:03-0400 Systolic blood pressure 150 mm[Hg] [facility] 2023 19:09-0400 Body temperature 98 [degF] [facility] 2023 18:07-0400 Body height 149.86 cm [facility] 2023 18:07-0400 Body mass index (BMI) [Ratio] 35.6 kg/m2 [facility] 2023 18:07-0400 Body weight 80 kg [facility] 01-11-2023 13:50-0400 Body height 149.9 cm Pac 4 Work Phone: [facility] 01-11-2023 13:50-0400 Body weight 81.65 kg Pac 4 Work Phone: [facility] 11-29-2022 14:26-0400 Body height 149.[address] [facility] 11-23-2022 08:06-0400 Body height 149.9 cm Lydia Candelaria PA-C Work Phone: [facility] 11-23-2022 08:06-0400 Body temperature 97.39 [degF] Lydia [place] PA-C Work Phone: [facility] 11-23-2022 08:06-0400 Body weight 83.19 kg Lydia [place] PA-C Work Phone: [facility] 11-23-2022 08:06-0400 Diastolic blood pressure 102 mm[Hg] Lydia [place] PA-C Work Phone: [facility] 11-23-2022 08:06-0400 Heart rate 88 /min Lydia [place] PA-C Work Phone: [facility] 11-23-2022 08:06-0400 SaO2% (BldA) [Mass fraction] 99 % Lydia Candelaria PA-C Work Phone: [facility] 11-23-2022 08:06-0400 Systolic blood pressure 151 mm[Hg] Lydia Candelaria PA-C Work Phone: [facility] 10-23-2022 08:37-0500 Body height 149.9 cm Lydia [place] PA-C Work Phone: [facility] 10-23-2022 08:37-0500 Body weight 81.65 kg Lydia Candelaria PA-C Work Phone: [facility] 09-10-2022 11:26-0500 Body height 149.[address] Leon South Work Phone: [facility] 09-10-2022 11:26-0500 Body mass index (BMI) [Ratio] 38.9 kg/m2 Dr. Leon South Work Phone: [facility] 09-10-2022 11:26-0500 Body weight 87.[address] Leon South Work Phone: [facility] 09-10-2022 11:26-0500 Diastolic blood pressure 94 mm[Hg] Dr. Leon South Work Phone: [facility] 09-10-2022 11:26-0500 Heart rate 89 /min Dr. Leon South Work Phone: [facility] 09-10-2022 11:26-0500 SaO2% (BldA) [Mass fraction] 96 % Dr. Leon South Work Phone: [facility] 09-10-2022 11:26-0500 Systolic blood pressure 142 mm[Hg] Dr. Leon South Work Phone: 0(573)450-717828 [place] [address] 08-18-2022 11:00-0500 Body temperature 97.2 [degF] Dr. Leon South Work Phone: 9(527)552-659680 [place] [address] 08-18-2022 11:00-0500 Diastolic blood pressure 83 mm[Hg] Dr. Leon South Work Phone: 6(809)607-993328 [place] [address] 08-18-2022 11:00-0500 Heart rate 79 /min Dr. Leon South Work Phone: 7(792)482-291428 [place] [address] 08-18-2022 11:00-0500 Respiratory rate 16 /min Dr. Leon South Work Phone: 4(034)281-469480 [place] [address] 08-18-2022 11:00-0500 SaO2% (BldA) [Mass fraction] 97 % Dr. Leon South Work Phone: 0(863)591-423628 [place] [address] 08-18-2022 11:00-0500 Systolic blood pressure 119 mm[Hg] Dr. Leon South Work Phone: 7(499)294-174780 [place] [address] 08-18-2022 09:08-0500 Body height 149.[address] Leon South Work Phone: 0(249)111-774828 [place] [address] Work Phone: 08-18-2022 09:08-0500 Body mass index (BMI) [Ratio] 36.9 kg/m2 Dr. Leon South Work Phone: 6(355)995-439028 [place] [address] 08-18-2022 09:08-0500 Body weight [address] Leon South Work Phone: 1(722)435-180228 [place] [address] 06-17-2022 11:09-0400 Body mass index (BMI) [Ratio] 36.9 kg/m2 Dr. Leon South Work Phone: 5(735)239-448228 [place] [address] 06-17-2022 11:09-0400 Body weight [address] Leon South Work Phone: 5(364)367-887828 [place] [address] 06-17-2022 11:09-0400 Diastolic blood pressure 98 mm[Hg] Dr. Leon South Work Phone: [facility] 06-17-2022 11:09-0400 Heart rate 82 /min Dr. Leon South Work Phone: [facility] 06-17-2022 11:09-0400 SaO2% (BldA) [Mass fraction] 97 % Dr. Leon South Work Phone: [facility] 06-17-2022 11:09-0400 Systolic blood pressure 153 mm[Hg] Dr. Leon South Work Phone: [facility] 08-30-2017 18:41-0500 Body Temperature 98.6 [degF] [facility] Work Phone: 08-30-2017 18:41-0500 BP Diastolic 110 mm[Hg] [facility] Work Phone: 08-30-2017 18:41-0500 BP Systolic 180 mm[Hg] [facility] Work Phone: 08-30-2017 18:41-0500 Pulse (Heart Rate) 80 /min [facility] Work Phone: 08-30-2017 18:41-0500 Pulse Oximetry 98 % [facility] Work Phone: 08-30-2017 18:41-0500 Respiratory Rate 16 /min [facility] Work Phone: 08-30-2017 18:41-0500 Weight 70.31 kg Akbar [facility] Work Phone: Encounters Encounter Date Encounter Type Care Provider Facility Start: 03-29-2025 ambulatory [place] Facility:[facility] Start: 01-10-2025 End: 01-10-2025 Patient encounter procedure Jaclyn Ivory APRN.CNP Work Phone: OB/Gynecology Comment on above: Hypertension, essent ial (Primary Dx); GERD without esophagitis; Hyperinsulinemia; Metabolic syndrome; Nonalcoholic fatty liver disease; Class 1 obesity with serious comorbidity and body mass index (BMI) of 34.0 to 34.9 in adult, unspecified obesity type Start: 01-10-2025 End: 01-10-2025 ambulatory VIRGINIAYARY CICIBARTOLOServando Facility:[facility] Start: 11-29-2024 End: 11-29-2024 Patient encounter procedure Jaclyn Ivory APRN.CNP Work Phone: OB/Gynecology Comment on above: Hypertension, essent ial (Primary Dx); GERD without esophagitis; Hyperinsulinemia; Metabolic syndrome; Nonalcoholic fatty liver disease; Class 1 obesity with serious comorbidity and body mass index (BMI) of 34.0 to 34.9 in adult, unspecified obesity type Start: 11-29-2024 End: 11-29-2024 ambulatory JACLYN IVORY Facility:[facility] Start: 10-31-2024 End: 10-31-2024 ambulatory JACLYN IVORY Facility:[facility] Start: 10-31-2024 End: 10-31-2024 Patient encounter procedure Jaclyn Ivory APRN.CNP Work Phone: OB/Gynecology Comment on above: Hypertension, essent ial (Primary Dx); GERD without esophagitis; Hyperinsulinemia; Metabolic syndrome; Nonalcoholic fatty liver disease; Class 1 obesity with serious comorbidity and body mass index (BMI) of 34.0 to 34.9 in adult, unspecified obesity type Start: 10-03-2024 End: 12-03-2024 Follow-up encounter Jaclyn Ivory APRN.CNP Work Phone: OB/Gynecology Start: 10-02-2024 End: 10-02-2024 ambulatory JACLYN IVORY Facility:[facility] Start: 10-02-2024 End: 10-02-2024 Patient encounter procedure Jaclyn Ivory APRN.CNP Work Phone: OB/Gynecology Comment on above: Hypertension, essent ial (Primary Dx); GERD without esophagitis; IFG (impaired fasting glucose); Nonalcoholic fatty liver disease; Screening cholesterol level; Screening for deficiency anemia; Screening for diabetes mellitus; Screening for metabolic disorder; Class 1 obesity with serious comorbidity and body mass index (BMI) of 34.0 to 34.9 in adult, unspecified obesity type Start: 09-28-2024 End: 09-28-2024 E-mail encounter from caregiver Jaclyn Ivory ENVIRONMENTAL REMEDIATION ENGINEER Work Phone: OB/Gynecology Start: 09-28-2024 End: 09-28-2024 Patient encounter procedure Jaclyn Elisabeth ESPINOSA Work Phone: OB/Gynecology Comment on above: Jaclyn Ivory appointzenaida ent 10/02/2024 Start: 06-13-2024 End: 06-13-2024 ambulatory SIMA MILLIGAN Facility:[facility] Start: 06-13-2024 End: 06-13-2024 Patient encounter procedure Sima Milligan MD Work Phone: OB/Gynecology Comment on above: Encounter for gyneco logical examination (general) (routine) without abnormal findings (Primary Dx); Screening for cervical cancer; Encounter for screening for human papillomavirus (HPV) Start: 06-13-2024 End: 06-13-2024 Patient encounter status Sima Milligan MD Work Phone: [facility] Start: 05-07-2024 ambulatory VIJAY HELMS [facility] Start: 05-07-2024 Encounter for genera l adult medical examination without abnormal findings VIJAY HELMS [facility] Start: 11-29-2023 Telephone encounter Suzi orozco DO Work Phone: General Surgery Comment on above: Orders Start: 05-28-2023 End: 05-28-2023 ambulatory Lydia Gaona PA-C Work Phone: Gastroenterology Comment on above: Nonalcoholic fatty l iver disease (Primary Dx); Elevated liver enzymes Start: 05-28-2023 End: 05-28-2023 Telemedicine consultation with patient Lydia Candelaria FAJARDO Work Phone: [facility] Start: 02-24-2023 End: 02-24-2023 ambulatory Suzi Watkins DO Work Phone: General Surgery Comment on above: Hiatal hernia with G ERD without esophagitis (Primary Dx); Esophageal dysphagia; Class 1 obesity due to excess calories without serious comorbidity with body mass index (BMI) of 34.0 to 34.9 in adult; Gastroparesis Start: 02-24-2023 End: 02-24-2023 Telemedicine consultation with patient Suzi Dow June DO Work Phone: [facility] Start: 02-11-2023 ambulatory Suzi centeno DO Work Phone: General Surgery Start: 02-09-2023 ambulatory SUZI WATKINS Facilit y:[facility] Start: 02-09-2023 End: 02-09-2023 Subsequent hospital visit by physician Suzi Watkins DO Work Phone: [facility] Comment on above: Gastroesophageal ref lux disease without esophagitis [K21.9] Start: 02-04-2023 ambulatory Suzi centeno DO Work Phone: [facility] Start: 01-18-2023 Telephone encounter Suzimak orozco DO Work Phone: [facility] Comment on above: Patient Update Start: 2023 End: 2023 Emergency department patient visit [facility]-Emergency Department Start: 01-12-2023 ambulatory Adrianna S Clin dawn DO Work Phone: Gastroenterology Comment on above: EGG RESULTS Start: 01-11-2023 End: 01-11-2023 Admission to establishment [place] [id number] Work Phone: [place] Start: 01-11-2023 End: 01-11-2023 ambulatory [facility] Work Phone: Pre Anesthesia Comment on above: Preop examination (P rimary Dx) Start: 01-11-2023 End: 01-11-2023 Preprocedural examination done [facility] Work Phone: Pre Anesthesia Start: 01-06-2023 End: 01-07-2023 ambulatory ADRIANNA FOUNTAIN Facility:[facility] Start: 11-29-2022 End: 11-29-[address] Nutrition Therapy Comment on above: Nonalcoholic fatty l iver disease (Primary Dx); Elevated liver enzymes; Gastroparesis; BMI 37.0-37.9, adult; Dietary counseling and surveillance Start: 11-29-2022 End: 11-29-2022 Telemedicine consultation with patient Triny Higuera RD [facility] Start: 11-25-2022 Orders Only Lydia Mcdonoughpaula Azar Work Phone: Gastroenterology Comment on above: Nonalcoholic fatty l iver disease (Primary Dx); Elevated liver enzymes Start: 11-23-2022 End: 11-23-2022 Patient encounter procedure Lydia Mcdonoughpaula INGRAM-Charlee Work Phone: Gastroenterology Comment on above: Nonalcoholic fatty l iver disease (Primary Dx); Elevated liver enzymes; Gastroparesis Start: 11-23-2022 End: 11-23-2022 ambulatory Hepatology A5 Work Phone: Gastroenterology Start: 11-23-2022 End: 11-23-2022 Patient encounter procedure Hepatology Procedures A5 Work Phone: [facility] Start: 10-23-2022 End: 10-23-2022 ambulatory Lydia Mcdonoughpaula FAJARDO Work Phone: Gastroenterology Comment on above: Nonalcoholic fatty l iver disease (Primary Dx); Elevated liver enzymes Start: 10-23-2022 End: 10-23-2022 Telemedicine consultation with patient Lydia Gaona TANA Work Phone: [facility] Start: 10-15-2022 Telephone encounter Adrianna Fountain DO Work Phone: Gastroenterology Comment on above: Pre appointment brandon leon Start: 10-14-2022 End: 10-14-2022 Subsequent hospital visit by physician [facility] Work Phone: Nuclear Medicine Start: 09-23-2022 End: 09-23-[address] Leon South Work Phone: [facility] Work Phone: Start: 09-23-2022 End: 09-23-[address] Leon South Work Phone: [facility]-Nuclear [facility] Start: 09-10-2022 End: 09-10-[address] Leon South Work Phone: [facility] Work Phone: Start: 09-10-2022 End: 09-10-[address] Leon South Work Phone: [facility] Gastroenterology Start: 08-18-2022 Non-patient / Non-visit Dr. Valentine South Work Phone: [facility] Start: 08-18-2022 End: 08-18-2022 Admission to same day surgery center Dr. Leon South Work Phone: [facility]-Endoscopy Start: 08-18-2022 End: 08-18-[address] Leon South Work Phone: [facility] Work Phone: Start: 08-17-2022 Refill Zenaida Craig on PA-C Work Phone: [facility] Comment on above: Refill Request Start: 06-17-2022 End: 06-17-[address] Leon South Work Phone: [facility] Gastroenterology Start: 03-22-2022 Refill Zenaida Craig on PA-C Work Phone: [facility] Comment on above: Refill Request Start: 12-23-2021 ambulatory Zenaida Craig on PA-C Work Phone: [facility] Start: 12-23-2021 Follow-up encounter Zenaida Stacy PA-C Work Phone: [facility] Comment on above: GI follow up Start: 09-22-2017 Ambulatory [facility] Start: 08-30-2017 End: 08-30-2017 Ambulatory Leon [facility] Start: 08-30-2017 End: 08-31-2017 Emergency department patient visit ADRIANNA MCKENNA [facility] Start: 08-30-2017 End: 08-30-2017 Ambulatory LEON Toure [facility] Start: 08-30-2017 Patient encounter Akbar levy Work Phone: [facility] [place] Procedures Date Procedure Procedure Detail Performing Clinician Start: 2023 CT of abdomen and pelvis without contrast Start: 11-23-2022 Liver elastography w/o imag w/i&r Lydia gama PA-C Work Phone: Start: 10-14-2022 Gastric emptying imaging study Sima vazquez APRN.CNP Work Phone: Start: 09-23-2022 Rad[address]uclide gastric emptying study Dr. Leon South Work Phone: Start: 09-23-[address] Leon chen Work Phone: Start: 09-23-[address] Leon South Work Phone: Start: 08-18-[address] Leon chen Work Phone: Start: 05-05-2021 Adult depression screening assessment JEROME Stacy PA-C Work Phone: Plan of Treatment Date Care Activity Detail Author Start: 06-13-2029 Screening for malignant neoplasm of cervix Cervical Cancer Screening [facility] Start: 02-07-2029 Urine microalbumin profile [place] [facility] Start: 06-13-2025 End: 06-13-2025 Patient encounter procedure 06/13/2025 8:40 AM EDT Office Visit OB/Gynecology [address] [place] [address] Sima Milligan MD [address] [place] [id number] Annual OB/Gynecology Comment on above: Annual Start: 04-15-2025 Influenza vaccination Influenza Vaccine (Season Ended) [facility] Start: 04-12-2025 End: 04-12-2025 Patient encounter procedure 04/12/2025 7:30 AM EDT Office Visit OB/Gynecology [address] [place] [address] Jaclyn Ivory APRN.ENVIRONMENTAL REMEDIATION ENGINEER [address] [place] [address] Wt MGT follow up OB/Gynecology Comment on above: Wt MGT follow up Start: 01-10-2025 End: 01-10-2025 Patient encounter procedure 01/10/2025 7:30 AM EDT Office Visit OB/Gynecology [address] [place] [address] Jaclyn Ivory APRN.ENVIRONMENTAL REMEDIATION ENGINEER [address] [place] [address] wt mgmt f/u OB/Gynecology Comment on above: wt mgmt f/u Start: 11-29-2024 End: 11-29-2024 Patient encounter procedure 11/29/2024 7:30 AM EDT Office Visit OB/Gynecology [address] [place] [address] Jaclyn Ivory SECURITY CONSULTANT.ENVIRONMENTAL REMEDIATION ENGINEER [address] [place] [address] wt mgmt f/u OB/Gynecology Comment on above: wt mgmt f/u Start: 10-31-2024 End: 10-31-2024 Patient encounter procedure 10/31/2024 7:00 AM EDT Office Visit OB/Gynecology [address] [place] [address] Jaclyn Ivory, SECURITY CONSULTANT.ENVIRONMENTAL REMEDIATION ENGINEER [address] [place] [address] wt mgmt f/up OB/Gynecology Comment on above: wt mgmt f/up Start: 10-02-2024 End: 01-01-2025 Hemoglobin A1c in Blood [facility] Comment on above: Expected: 10/02/2024, Expires: Start: 10-02-2024 End: 01-01-2025 Insulin [Units/volume] in Serum or Plasma [facility] Work Phone: Comment on above: Expected: 10/02/2024, Expires: Start: 10-02-2024 End: 01-01-2025 Lipid 1996 panel - Serum or Plasma [facility] Comment on above: Expected: 10/02/2024, Expires: Start: 10-02-2024 End: 10-02-2024 Patient encounter procedure 10/02/2024 8:00 AM EST Office Visit OB/Gynecology [address] [place], [place] [id number] Jaclyn Ivory APRN.ENVIRONMENTAL REMEDIATION ENGINEER [address] [place], [place] [id number] New weight management consult OB/Gynecology Comment on above: New weight management consult Start: 05-08-2024 HPV TESTING HPV TESTING [facility] Start: 05-08-2024 PAP TESTING PAP TESTING [facility] Start: 05-08-2024 Screening for malignant neoplasm of cervix [facility] Start: 04-15-2024 Covid-19 Vaccine ( season) Covid-19 Vaccine () [facility] Start: 04-15-2024 Influenza vaccination [facility] Start: 08-15-2023 Behavioral Health Screening Behavioral Health Screening [facility] Start: 05-28-2023 End: 07-28-2023 Hepatic function 2000 panel - Serum or Plasma HEPATIC FUNCTION PNL Lab Routine Nonalcoholic fatty liver disease Elevated liver enzymes Expected: 05/28/2023, Expires: 07/28/2023 [facility] Work Phone: Comment on above: Expected: 05/28/2023, Expires: Start: 05-28-2023 End: 07-28-2023 HEPATITIS A ANTIBODY, IGG HEPATITIS A ANTIBODY, IGG Lab Routine Nonalcoholic fatty liver disease Elevated liver enzymes Expected: 05/28/2023, Expires: 07/28/2023 [facility] Work Phone: Comment on above: Expected: 05/28/2023, Expires: Start: 05-28-2023 End: 07-28-2023 Hepatitis B virus surface Ab [Presence] in Serum HEP B SURF AB Lab Routine Nonalcoholic fatty liver disease Elevated liver enzymes Expected: 05/28/2023, Expires: 07/28/2023 [facility] Work Phone: Comment on above: Expected: 05/28/2023, Expires: Start: 05-22-2023 Hepatitis a & b vaccine hepa-hepb adult im HEP A-HEP B VACCINE (TWINRIX) Immunization/Injection Routine Nonalcoholic fatty liver disease Elevated liver enzymes Expected: 05/22/2023 [facility] Work Phone: Comment on above: Expected: 05/22/2023 Start: 04-15-2023 Covid-19 Vaccine ( season) Covid-19 Vaccine ( season) [facility] Start: 04-15-2023 Influenza vaccination [facility] Start: 12-23-2022 Hepatitis a & b vaccine hepa-hepb adult im HEP A-HEP B VACCINE (TWINRIX) Immunization/Injection Routine Nonalcoholic fatty liver disease Elevated liver enzymes Expected: 12/23/2022 [facility] Work Phone: Comment on above: Expected: 12/23/2022 Start: 12-21-2022 HEPATITIS B (2 of 3 - Hep B Twinrix 3-dose series) HEPATITIS B (2 of 3 - Hep B Twinrix 3-dose series) [facility] Start: 12-21-2022 Hepatitis B Vaccine (2 of 3 - Hep B Twinrix 3-dose series) Hepatitis B Vaccine (2 of 3 - Hep B Twinrix 3-dose series) [facility] Start: 10-23-2022 End: 12-23-2022 ALPHA 1 ANTITRYPSIN PHENOTYPE ALPHA 1 ANTITRYPSIN PHENOTYPE Lab Routine Nonalcoholic fatty liver disease Elevated liver enzymes Expected: 10/23/2022, Expires: 12/23/2022 [facility] Work Phone: Comment on above: Expected: 10/23/2022, Expires: 3 Start: 10-23-2022 End: 12-23-2022 [id number] [Mass/volume] in Serum or Plasma ALPHA FETOPROTEIN BL Lab Routine Nonalcoholic fatty liver disease Elevated liver enzymes Expected: 10/23/2022, Expires: 12/23/2022 [facility] Work Phone: Comment on above: Expected: 10/23/2022, Expires: 3 Start: 10-23-2022 End: 12-23-2022 ZEB BY IFA WITH REFLEX ZEB BY IFA WITH REFLEX Lab Routine Nonalcoholic fatty liver disease Elevated liver enzymes Expected: 10/23/2022, Expires: 12/23/2022 [facility] Work Phone: Comment on above: Expected: 10/23/2022, Expires: 3 Start: 10-23-2022 End: 12-23-2022 Basic metabolic 2000 panel - Serum or Plasma BASIC METABOLIC PNL Lab Routine Nonalcoholic fatty liver disease Elevated liver enzymes Expected: 10/23/2022, Expires: 12/23/2022 [facility] Work Phone: Comment on above: Expected: 10/23/2022, Expires: 3 Start: 10-23-2022 End: 12-23-2022 CBC W Auto Differential panel - Blood CBC + DIFF Lab Routine Nonalcoholic fatty liver disease Elevated liver enzymes Expected: 10/23/2022, Expires: 12/23/2022 [facility] Work Phone: Comment on above: Expected: 10/23/2022, Expires: 3 Start: 10-23-2022 End: 12-23-2022 Ceruloplasmin [Mass/volume] in Serum or Plasma CERULOPLASMIN BLD Lab Routine Nonalcoholic fatty liver disease Elevated liver enzymes Expected: 10/23/2022, Expires: 12/23/2022 [facility] Work Phone: Comment on above: Expected: 10/23/2022, Expires: 3 Start: 10-23-2022 End: 12-23-2022 Chronic hepatitis differentiation between hepatitis B and C virus panel - Serum or Plasma HEP REMOTE PANEL BL Lab Routine Nonalcoholic fatty liver disease Elevated liver enzymes Expected: 10/23/2022, Expires: 12/23/2022 [facility] Work Phone: Comment on above: Expected: 10/23/2022, Expires: 3 Start: 10-23-2022 End: 12-23-2022 Ferritin [Mass/volume] in Serum or Plasma FERRITIN BLD Lab Routine Nonalcoholic fatty liver disease Elevated liver enzymes Expected: 10/23/2022, Expires: 12/23/2022 [facility] Work Phone: Comment on above: Expected: 10/23/2022, Expires: Start: 10-23-2022 End: 12-23-2022 Hepatic function 2000 panel - Serum or Plasma HEPATIC FUNCTION PNL Lab Routine Nonalcoholic fatty liver disease Elevated liver enzymes Expected: 10/23/2022, Expires: 12/23/2022 [facility] Work Phone: Comment on above: Expected: 10/23/2022, Expires: 3 Start: 10-23-2022 End: 12-23-2022 HEPATITIS A ANTIBODY, IGG HEPATITIS A ANTIBODY, IGG Lab Routine Nonalcoholic fatty liver disease Elevated liver enzymes Expected: 10/23/2022, Expires: 12/23/2022 [facility] Work Phone: Comment on above: Expected: 10/23/2022, Expires: 3 Start: 10-23-2022 End: 12-23-2022 Iron and Iron binding capacity panel - Serum or Plasma IRON + TIBC Lab Routine Nonalcoholic fatty liver disease Elevated liver enzymes Expected: 10/23/2022, Expires: 12/23/2022 [facility] Work Phone: Comment on above: Expected: 10/23/2022, Expires: 3 Start: 10-23-2022 End: 12-23-2022 Lipid 1996 panel - Serum or Plasma LIPID PANEL BASIC Lab Routine Nonalcoholic fatty liver disease Elevated liver enzymes Expected: 10/23/2022, Expires: 12/23/2022 [facility] Work Phone: Comment on above: Expected: 10/23/2022, Expires: 3 Start: 10-23-2022 End: 12-23-2022 Mitochondria Ab [Presence] in Serum by Immunofluorescence MITOCHONDRIAL M2 IGG SERUM Lab Routine Nonalcoholic fatty liver disease Elevated liver enzymes Expected: 10/23/2022, Expires: 12/23/2022 [facility] Work Phone: Comment on above: Expected: 10/23/2022, Expires: 3 Start: 10-23-2022 End: 12-23-2022 Smooth muscle Ab [Presence] in Serum SMOOTH MUSCLE AB SCR Lab Routine Nonalcoholic fatty liver disease Elevated liver enzymes Expected: 10/23/2022, Expires: 12/23/2022 [facility] Work Phone: Comment on above: Expected: 10/23/2022, Expires: 3 Start: 09-24-2022 ANNUAL PCP TEAM CHRONIC DISEASE VISIT ANNUAL PCP TEAM CHRONIC DISEASE VISIT [facility] Start: 08-18-2022 Egd transoral biopsy single/multiple EGD BIOPSY SINGLE/MULTIPLE [facility] Start: 08-18-2022 Patient discharge [facility] Start: 08-15-2022 DEPRESSION ASSESSMENT DEPRESSION ASSESSMENT [facility] Start: 05-05-2022 Adult depression screening assessment DEPRESSION SCREENING [facility] Start: 04-15-2022 Influenza vaccination [facility] Start: 09-01-2021 COVID-19 VACCINE (4 - Booster for Pfizer series) COVID-19 VACCINE (4 - Booster for Pfizer series) [facility] Start: 09-01-2021 COVID-19 VACCINE (4 - Pfizer series) COVID-19 VACCINE (4 - Pfizer series) [facility] Start: 04-15-2017 Influenza vaccination SEQUENTIAL INFLUENZA VACCINE (#1) [facility] Work Phone: Start: 2005 Anxiety Screening Anxiety Screening [facility] Start: 2005 BP CONTROLLED (<130/80) BP CONTROLLED (<130/80) [facility] Start: 2005 Depression Screening Depression Screening [facility] Start: 1987 HEPATITIS B (1 of 3 - 3-dose series) HEPATITIS B (1 of 3 - 3-dose series) [facility] Start: 1987 Screening for malignant neoplasm of cervix [facility] Work Phone: Start: 1987 Tetanus vaccination TETANUS EVERY 10 YR [facility] Work Phone: DDI VIBRATION CONTRO LLED TRANSIENT ELASTOGRAPHY (VCTE) DDI VIBRATION CONTROLLED TRANSIENT ELASTOGRAPHY (VCTE) Endoscopy Routine Nonalcoholic fatty liver disease Elevated liver enzymes Ordered: 10/23/2022 [facility] Work Phone: Comment on above: Ordered: 10/23/2022 DDI VIBRATION CONTRO LLED TRANSIENT ELASTOGRAPHY (VCTE) DDI VIBRATION CONTROLLED TRANSIENT ELASTOGRAPHY (VCTE) Endoscopy Routine Nonalcoholic fatty liver disease Elevated liver enzymes Ordered: 05/28/2023 [facility] Work Phone: Comment on above: Ordered: 05/28/2023 End: 02-09-2023 EGD - THERAPEUTIC, EUS, OR TUBE INTERVENTIONS EGD - THERAPEUTIC, EUS, OR TUBE INTERVENTIONS Endoscopy Routine Gastroesophageal reflux disease without esophagitis Delayed gastric emptying NAFLD (nonalcoholic fatty liver disease) Esophageal dysphagia 1 Occurrences starting 02/09/2023 until 02/09/2023 [facility] Work Phone: Comment on above: 1 Occurrences starting 02/09/2023 until 02/09/2023 Electrogastrography dx transcutaneous EGG (ELECTROGASTROGRAPHY) Procedures Routine Gastroparesis Ordered: 10/18/2022 [facility] Work Phone: Comment on above: Ordered: 10/18/2022 End: 11-23-2023 Hepatic function 2000 panel - Serum or Plasma HEPATIC FUNCTION PNL Lab Routine Nonalcoholic fatty liver disease Elevated liver enzymes Every 3 months for 2 Occurrences starting 11/23/2022 until 11/23/2023 [facility] Work Phone: Comment on above: Every 3 months for 2 Occurrences startin g 11/23/2022 until 11/23/2023 PAP TEST PAP TEST Lab Liliana solitario Encounter for gynecological examination (general) (routine) without abnormal findings Screening for cervical cancer Encounter for screening for human papillomavirus (HPV) 06/13/2024 3:02 PM EDT [facility] Work Phone: Patient Education ED Kidney Stone w/ Coli c [facility] Work Phone: Patient referral [facility] Work Phone: End: 02-09-2023 PH HUERTA INSERT OFF MEDS PH HUERTA INSERT OFF MEDS Endoscopy Routine Gastroesophageal reflux disease without esophagitis Delayed gastric emptying NAFLD (nonalcoholic fatty liver disease) Esophageal dysphagia 1 Occurrences starting 02/09/2023 until 02/09/2023 [facility] Work Phone: Comment on above: 1 Occurrences starting 02/09/2023 until 02/09/2023 End: 11-28-2024 PH HUERTA INSERT OFF MEDS PH HUERTA INSERT OFF MEDS Endoscopy Routine Esophageal dysphagia 1 Occurrences starting 11/29/2023 until 11/28/2024 [facility] Work Phone: Comment on above: 1 Occurrences starting 11/29/2023 until 11/28/2024 Radionuclide gastric emptying study [facility] Ultrasound elastography [facility] US Abdomen limited [facility] Immunizations Immunization Date Immunization Notes Care Provider Ramila handley 11-23-2022 hepatitis A and hepatitis B vaccine Lydia Gaona PA-C Work Phone: [facility] 11-23-2022 hepatitis B vaccine, unspecified formulation Lydia Gaona PA-C Work Phone: [facility] 02-07-2019 tetanus toxoid, redu ayush diphtheria toxoid, and acellular pertussis vaccine, adsorbed JEROME Stacy PA-C Work Phone: [facility] 05-31-2018 influenza virus vaccine, unspecified formulation JEROME Stacy PA-C Work Phone: [facility] 02-06-2016 TD(adult) unspecifie d formulation NA Regis FAJARDO Work Phone: [facility] 02-06-2016 tetanus and diphther ia toxoids, adsorbed, preservative free, for adult use (2 Lf of tetanus toxoid and 2 Lf of diphtheria toxoid) Dr. Leon South Work Phone: [facility] Payers Date Payer Category Payer Self-pay [id number] 2025 Unknown [id number] 2024 Blue Cross Blue Shield [id number] 2024 Unknown [id number] 2015 Private Health Insurance [id number] 2015 Private Health Insurance JAMSHID LIZARRAGA MANAGED CHOICE POS [id number] 2015-Present [phone] [address] [place] [address] POS [id number] 2015 Private Health Insurance [id number] 1987 Unknown [id number] Private Health Insurance [facility] [id number] Unknown [facility] [id number] Unknown [facility] [id number] Unknown [employer] [facility] [id number] Unknown [id number] Social History Date Type Detail Facility Start: 08-30-2017 End: 11-23-2022 Tobacco smoking status NHIS Never smoker [facility] Start: 1985 Sex Assigned At Not on file [facility] [employer] Work Phone: Start: 11-17-2016 End: 11-23-2022 Tobacco use and exposure Smokeless tobacco non-user [facility] Start: 09-24-2021 End: 01-10-2025 Alcohol intake Current drinker of alcohol (finding) [facility] Start: 12-13-2019 End: 09-22-2020 History SDOH Alcohol Frequency 2 [facility] Start: 12-13-2019 End: 09-22-2020 History SDOH Alcohol Std Drinks 1 [facility] Start: 08-31-2018 History SDOH Alcohol Comment Social, not while [facility] Start: 12-13-2019 History SDOH Social Connections Phone 5 [facility] Start: 12-13-2019 History SDOH Social Connections Judaism 3 [facility] Start: 12-13-2019 History SDOH Stress 4 [facility] Start: 12-12-2019 Education 18 [facility] Start: 08-17-2022 End: 2023 Tobacco smoking status WIIS Unknown if ever smoked [facility] Start: 03-19-2019 None [facility] Start: 1985 Sex Assigned At Female W [facility] Start: 12-12-2019 End: 01-06-2023 History of Social function [facility] Start: 12-12-2019 End: 01-06-2023 Social connection and isolation panel [facility] Do you belong to any clubs or organizations such as muslim groups, unions, fraternal or athletic groups, or school groups? Yes [facility] Are you now , , , , never or living with a partner? [facility] How often to you hav e a drink containing alcohol? Monthly or less [facility] How many standard drinks containing alcohol do you have on a typical day? 1 or 2 [facility] How often do you hav e 6 or more drinks on 1 occasion? Never [facility] How hard is it for y ou to pay for the very basics like food, housing, medical care, and heating Not hard at all [facility] Do you feel stress - tense, restless, nervous, or anxious, or unable to sleep at night because your mind is troubled all the time - these days [OSQ] Rather much [facility] (I/We) worried wheth er (my/our) food would run out before (I/we) got money to buy more. Never true [facility] In the past 12 month s, was there a time when you were not able to pay the mortgage or rent on time? No [facility] Start: 09-21-2020 Gender identity Identifies as female gender (finding) [facility] NEGATED: Highlighted row [facility] Goals Date Patient Goal Desired Activity /State Mental Status Date Assessment Result Facility 2023 Cognitive function Level Of Cons ciousness Awake;Alert;Appropriate;Follow s Commands [facility] Work Phone: 08-18-2022 Cognitive function Voice/Name [facility] Work Phone: Clinical Notes 03-02-2019 to 01-10-2025 Jaclyn Ivory APRN.[facility] - 01/10/2025 7:30 AM EDTPatient InstructionsJaclyn Ivory APRN.[facility] - 11/29/2024 1:30 PM EDTPatient InstructionsPatient InstructionsPatient InstructionsPatient Instructions Note Date & Type Note Facility 01-10-2025 History of Presen t illness Narrative Images from the original note were not included. Some documentation from previous visit of 11/29/2024 [...] - SKIP/ WE if did not eat Eletrogóes's RB sandwich with sauce or leftovers S - none D - 7-8 pm lasagne or tacos or sausage rice casserole or teriyaki chicken and rice or grilled meat/baked potato with tea with SF drink mixes. eats out 3-4 times a week Chipotle - Steak, white rice, black beans, s cream, cheese, corn tomatoes, chips, sweet tea Subway - 6 in wheat Latvian parra veg sweet tea Red Lobster - shrimp scampi, 2 biscuits, occas Anshul salad, sweet tea [place] - chicken fingers, fries or smothered grilled [...] of sugar sweetened beverages, and skip meals. Reception Centre Manager of impaired eating habits:emotion and stress causes [...] S - 3 pm Chomp D - [id number] Chipotle - Chicken, white rice, black beans, [...] exercise? no Work-related activity:Sedentary. 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 No distress. Results: recent labs reviewed with the patient. Latest Ref Rng & Units 10/02/2024 CMP Sodium 136 - 144 mmol/L 137 Potassium 3.7 - 5.1 mmol/L 3.8 Chloride 98 - 107 mmol/L 104 CO2 22 - 30 mmol/L 21 Glucose 74 - 99 mg/dL 97 BUN 7 - 21 mg/dL 15 Creatinine 0.58 - 0.96 mg/dL 0.59 EGFR >=60 mL/min/1.73m 119 Protein, Total 6.3 - 8.0 g/dL [...] 10/02/2024 238 06/08/2019 81 Latest Ref Rng & Units 10/02/2024 CBC WBC 3.70 - 11.00 [...] No contraindications or medication interactions. Assessment/Plan: Forest Nguyen is a 39 year old yo with [...] training and cardiovascular exercise is the best terminal block assembler plan. An overall goal of 150-200 minutes per week of exercise has been effective in weight loss and maintenance. Prescription instructions reviewed with patient as applicable. Potential red flag symptoms discussed with the patient. Reviewed appropriate action plan to take if red flag symptoms occur. Patient agreeable to treatment plan. Follow up in 3 months Jaclyn Ivory CNP Advanced Education from the Obesity Medicine Association Medical Decision Making: Problems: Moderate: 1+ chronic illnesses with change and 2+ stable chronic illnesses Risk: Moderate: Drug management and Moderate risk from testing/treatment Medical Decision Making Level: 4 - Moderate documented in this encounter [facility] 01-10-2025 Note HNO ID: [id number] Author: JACLYN IVORY APRN.CNP Service: ? Author Type: Nurse Practitioner Type: [...] sweet tea Subway - 6 in wheat Latvian parra veg sweet tea Red Lobster - shrimp scampi, 2 biscuits, occas Anshul salad, sweet tea [place] - chicken fingers, fries or smothered grilled [...] of sugar sweetened beverages, and skip meals. Reception Centre Manager of impaired eating habits:emotion and stress causes [...] S - 3 pm Chomp D - [id number] Chipotle - Chicken, white rice, black beans, [...] exercise? no Work-related activity:Sedentary. 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 [...] before meals. 180 capsule 1 No current facility-adm (more content not included)... [facility] 01-09-2025 Instructions Jaclyn Ivory, JAZZY.ENVIRONMENTAL REMEDIATION ENGINEER - 01/09/2025 4:34 PM EDT Images from the original note were not included. Diego protein bar - 28g protein 3 net [...] Snack 1 single svg - 15g protein & 2g carb Two Good Lowfat Guyanese Yogurt, Lower Sugar - 12g protein & 2g carb No fruit, vegetables, bread, grain, [...] oz is 28 gm protein Beef, Chicken, Grayson, Pork, Duran 1 oz 7g Fish, Tuna Fish 1 oz 7g (Starkist tuna packet 2.6 oz 17 gm protein) Seafood (Crabmeat, Shrimp, Lobster) 1 oz 6g Protein shakes (read labels) Premier Protein or generic [employer]Mart Equate, Meijer High Performance- 30g protein & 1g carb - meal replacement Premier Protein powder or generic- 30 g protein, 1g carb Fairlife 30 gram protein - 30g protein & 3g carb BOOST Glucose Control Max 30g Protein Nutritional Drink - 30g protein & 1 carb - meal replacement Slimfast High Protein - 20g protein & 1g carb Ensure Max Protein Nutrition Shake 30g protein & 2 carb OWYN plant based 100 % vegan no dairy, soy, wheat/gluten 32g protein 0 net carb (not a meal replacement) Premier Protein plant protein powder - 25g protein, 0 sugar/2g carb Vanilla and chocolate (not a meal replacement) Protein AND carbs Beef/Grayson Jerky 1 oz dried 10-15g protein - check carb count, can be high if sugar added Slim Jerardo - 6 gm protein and 4 net carb Great Value original turkey sausage sticks - 7 gm protein and 2 gm carb Jacques (at [facility]) Original smoked sausage sticks - 8 gm protein and 0 carb Imitation Crab Meat 1 oz - 2g protein & 4g carb Milk, skim 2% or 1% 8 oz - 8g protein & 12g carb Fairlife 2% milk 8 oz -13g protein & 6g car Guyanese yogurt Full Fat Guyanese Yogurt 1 cup - 20.4g protein & 9.1g carb 2% Guyanese Yogurt 1 cup - 22.7g protein & 9.1g carb 0% (fat-free) Guyanese Yogurt - 1 cup 24g protein & 9.3g carb Aldi Protein Guyanese yogurt single svg - 13/g15g protein & 7g carb Chobani Zero Sugar single svg: - 12g protein & 5g carb Dannon Guyanese Light + Fit 1 single svg - 12g protein & 9g carb Oikos Pro single svg - 20g protein & 8g carb Oikos Triple Zero Guyanese Nonfat Yogurt 1 single svg - 15g protein & 7g carb :ratio, KETO Friendly Dairy Snack 1 single svg - 15g protein & 2g carb :ratio Protein 1 single svg - 25g protein & 8g carb Two Good Lowfat Guyanese Yogurt, [place], Lower Sugar - 12g protein & 2g carb Yoplait Protein 1 single svg 15g protein & 5g carb Dairy Free - [place] unsweetened Guyanese almond/soy 15g protein & 3g carb Dairy Free - True Goodness by [facility] coconut-based yogurt alternative 1 g protein 1 g net carb 180 maude Drinkable yogurts: Chobani drinkable 15g, 20g and 30g protein & 18 carb (too many carbs for breakfast) Chobani Zero Sugar 10g protein 6g carbs 50 calories Oikos Pro drinkable yogurt 1 single svg - 23g protein & 8g carb :ratio Protein 26g protein 9g carb Cheese each oz Brie 5.9g protein & 0.1g carb Cheddar 7g protein & 0.4g carb Rishi 6.7g protein & 0.7g carb Cream Cheese 1.7g protein & 1.2g carb Looking for Gamers Farms whipped Guyanese cream cheese (WM) 2 T 3g protein 2g carb Feta 4g protein & 1.2g carb Mozzarella 6.3g protein & 0.6g carb Parmesan 10g protein & 0.9g carb Northern Irish 7.6g protein & 1.5g carb Cottage Cheese 1/2 c Breakstone 2% 13g protein 7g carb Kayleigh 2% 13g protein 5 g carb Good Culture 2% 14g protein 3g carb Lactaid 13g protein 5g carb Ma s Low Fat 12g protein & 4g carb Legumes Lentils cup 9g protein & 20g carb Ann beans cup 7g protein & 20g carb Kidney, Black, [place], Cannellini beans cup 8g protein & 20g carb Chickpeas 1/2 c 6g protein & 15g carb Soybeans 1/2 c 14g complete protein & 8.5g carb [place] milk, unsweetened 8 oz 1g protein & 2g carb Soy milk 8 oz 3.5g protein & 1.6g carb Tofu 1/2 cup 10g protein & 2.3g carb Peanut butter, natural 2 Tbsp 7-8g protein & 4g net carbs, 190 calories PB2 powder 2 Tbsp 6g protein & 5g carb Nuts and Seeds per oz Almonds - 5.9g protein & 6.1g carb [place] Nuts - 4.0g protein & 3.4g carb Cashews - 5.1g protein & 9.2g carb Hazelnuts - 4.2g protein & 4.7g carb Hemp seeds/hearts 3 T/30 gms - 9.5 gm complete protein and 2.5 gm carb Peanuts - 7g protein & 4.6g carb Pecans - 2.6g protein & 3.9g carb Pistachios - 5.8g protein & 7.8g carb Pumpkin Seeds - 6.9g protein & 5g carb Simpson Seeds - 5.8g protein & 5.6g carb Walnuts - 4.3g protein & 3.8g carb Edamame Beans (soybean) snack 1 pack 11 gm complete protein 2 carb 5 (FIVE) gram carb vegetable options 1 cup raw OR cup cooked: Asparagus Nicholson sprouts Beets Broccoli Brussel sprouts Cabbage Carrots Cauliflower Celery [place] Eggplant Green beans Lettuce Peppers Snap peas Spaghetti squash Spinach Tomato Turnips Zucchini 15 gram carb vegetable options cup cooked corn or hominy corn on the cob, large (5 oz) cup cooked green peas 4.3 gm complete protein cup cooked ann beans 1 small potato or sweet potato cup cooked potato, plain cup cooked sweet potato, plain 1 cup winter squash (pumpkin, acorn, butternut) 1 cup marinara or pasta sauce - check label cup tomato juice cup tomato puree Beans, Seeds, Nuts cup cooked beans (kidney, valencia, red, green, etc.) cup cooked lentils cup baked beans 4 tablespoons nut butter [...] High Protein Snack Ideas 1. Jerky 2. [place] mix without dried fruit 3. Grayson roll-ups 4. Guyanese yogurt 5. Veggies and yogurt dip 6. Tuna 7. Hard-boiled eggs 8. Peanut butter with celery 9. Cheese slices/ Cheese Stick 10. Handful of almonds, peanuts or walnuts 11. Cottage Cheese 12. Beef sticks 13. Protein bars 14. Canned Eagar 15. Pumpkin seeds 16. Nut butter 17. Protein shake or protein bar 18. Avocado and chicken salad 19. Egg muffins 20. Leftover protein or lunch meat 21. 1/2 c blended cottage cheese or Guyanese yogurt with dry ranch/Mrs. Dash/herb seasoning mix [...] understood. Topiramate affects body mass index, fasting xasbxvn-nb-jngjgnq ratio, and serum leptin and cortisol levels. [...] irritability, anxiety and difficulty concentrating. Topiramate (toe pyre a mate) What are the common names? [...] by helping you feel less hungry, less driven to eat, more satisfied with less food. [...] Drug interactions. Use of monamine oxidase inhibitors (MAOI s), valproic acid, Caution use with dehydration or diarrheal illness, hepatic or renal impairment In case of emergency/overdose In case of overdose, call your local poison control center at or call local emergency services at [phone]. What other information should I know? Keep all appointments with your doctor and the laboratory. Do not let anyone else take your medication. Topiramate use needs to be monitored closely. Prescriptions may be refilled only a limited number of times. Keep a written list of all of your prescription and nonprescription (mzic-sfx-akbepue) medicines, in addition to vitamins, minerals, or [...] make up for a missed one. Sources [facility]: http://www.ncbi.nlm.nih.gov/pubm edhealth/ULJ1313653/ Drugs.com http://www.drugs.com/pro/topiram ate.html TOPIRAMATE -- Take 25mg at bedtime for [...] understood. Topiramate affects body mass index, fasting kmptcqq-rq-adkcgjf ratio, and serum leptin and cortisol levels. [...] irritability, anxiety and difficulty concentrating. Topiramate (toe pyre a mate) What are the common names? [...] by helping you feel less hungry, less driven to eat, more satisfied with less food. [...] Drug interactions. Use of monamine oxidase inhibitors (MAOI s), valproic acid, Caution use with dehydration or diarrheal illness, hepatic or renal impairment In case of emergency/overdose In case of overdose, call your local poison control center at or call local emergency services at [phone]. What other information should I know? Keep all appointments with your doctor and the laboratory. Do not let anyone else take your medication. Topiramate use needs to be monitored closely. Prescriptions may be refilled only a limited number of times. Keep a written list of all of your prescription and nonprescription (fval-vfh-efygqio) medicines, in addition to vitamins, minerals, or [...] for a missed one. Sources [employer] [facility]: http://www.ncbi.nlm.nih.gov/pubm edhealth/WSQ3510034/ Drugs.com http://www.drugs.com/pro/topiram ate.html Why Is Protein So Important for Weight [...] carbohydrates leads to a release of Dopamine feel good hormone in our brain So how do you [...] per day Ultra Processed foods are considered Calorie Dense so when a person feels full they [...] are economical and optimized for taste by [employer] - they are designed to make you want to keep eating them- they feed common cravings and bypass the mechanisms that tell your brain you are full Benefits of eating Whole Foods and cutting out Ultra Processed Foods Increased concentration and focus (decreased brain fog), improved mood, better sleep, Decrease in fatigue, improvement in gut health, decreased inflammation, Likely WEIGHT LOSS documented in this encounter [facility] 11-29-2024 History of Presen t illness Narrative Images from the original note were not included. Some documentation from previous visit of 10/31/2024 [...] - SKIP/ WE if did not eat Eletrogóes's RB sandwich with sauce or leftovers S - none D - 7-8 pm lasagne or tacos or sausage rice casserole or teriyaki chicken and rice or grilled meat/baked potato with tea with SF drink mixes. eats out 3-4 times a week Chipotle - Steak, white rice, black beans, s cream, cheese, corn tomatoes, chips, sweet tea Subway - 6 in wheat Latvian parra veg sweet tea Red Lobster - shrimp scampi, 2 biscuits, occas Anshul salad, sweet tea [place] - chicken fingers, fries or smothered grilled [...] of sugar sweetened beverages, and skip meals. Reception Centre Manager of impaired eating habits:emotion and stress causes [...] broasted chicken thigh breaded shrimp/g beans/noodles at [facility] S - none Fluids - water Current Barriers: large portion sizes, inadequate sleep duration, and reduced physical activity Exercise: none Regular exercise: no Strength/resistance exercise:no Barriers to regular exercise? no Work-related activity:Sedentary. 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 No distress. Results: recent labs reviewed with the patient. Latest Ref Rng & Units 10/02/2024 CMP Sodium 136 - 144 mmol/L 137 Potassium 3.7 - 5.1 mmol/L 3.8 Chloride 98 - 107 mmol/L 104 CO2 22 - 30 mmol/L 21 Glucose 74 - 99 mg/dL 97 BUN 7 - 21 mg/dL 15 Creatinine 0.58 - 0.96 mg/dL 0.59 EGFR >=60 mL/min/1.73m 119 Protein, Total 6.3 - 8.0 g/dL [...] 10/02/2024 238 06/08/2019 81 Latest Ref Rng & Units 10/02/2024 CBC WBC 3.70 - 11.00 [...] N Criteria met 10/17: Y Assessment/Plan: Forest Nguyen is a 39 year old yo with [...] training and cardiovascular exercise is the best terminal block assembler plan. An overall goal of 150-200 minutes per week of exercise has been effective in weight loss and maintenance. Prescription instructions reviewed with patient as applicable. Potential red flag symptoms discussed with the patient. Reviewed appropriate action plan to take if red flag symptoms occur. Patient agreeable to treatment plan. Follow up in 6 weeks Jaclyn Ivory CNP Advanced Education from the Obesity Medicine Association I spent a total of 39 minutes on the date of the service which included preparing to see the patient, ukff-oo-vccg patient care, completing clinical documentation, obtaining and/or reviewing separately obtained history, performing a medically appropriate examination, and counseling and educating the patient/family/caregiver. documented in this encounter [facility] 11-29-2024 Note HNO ID: [id number] Author: JACLYN IVORY APRN.CNP Service: ? Author Type: Nurse Practitioner Type: [...] - SKIP/ WE if did not eat Eletrogóes's RB sandwich with sauce or leftovers S - none D - 7-8 pm lasagne or tacos or sausage rice casserole or teriyaki chicken and rice or grilled meat/baked potato with tea with SF drink mixes. eats out 3-4 times a week Chipotle - Steak, white rice, black beans, s cream, cheese, corn tomatoes, chips, sweet tea Subway - 6 in wheat Latvian parra veg sweet tea Red Lobster - shrimp scampi, 2 biscuits, occas Anshul salad, sweet tea [place] - chicken fingers, fries or smothered grilled [...] of sugar sweetened beverages, and skip meals. Reception Centre Manager of impaired eating habits:emotion and stress causes [...] broasted chicken thigh breaded shrimp/g beans/noodles at [facility] S - none Fluids - water Current Barriers: large portion sizes, inadequate sleep duration, and reduced physical activity Exercise: none Regular exercise: no Strength/resistance exercise:no Barriers to regular exercise? no Work-related activity:Sedentary. 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 [...] GEN: Fatigue:yes GI: GERD:yes - Prilosec NEURO: Migraines (more content not included)... [facility] 11-29-2024 Instructions Jaclyn Ivory APRN.[facility] 11/29/2024 1:25 PM EDT - Whole food balanced protein, controlled carbohydrate [...] oz is 28 gm protein Beef, Chicken, Grayson, Pork, Duran 1 oz 7g Fish, Tuna Fish 1 oz 7g (Starkist tuna packet 2.6 oz 17 gm protein) Seafood (Crabmeat, Shrimp, Lobster) 1 oz 6g Protein shakes (read labels) Premier Protein or generic Albertt Laraate Meioneilr High Performance- 30g protein & 1g carb - meal replacement Premier Protein powder or generic- 30 gm protein, 1g carb Premier Protein plant protein powder - 25 gm protein, 0 sugar/2 carb Vanilla and chocolate (not a meal replacement) Fairlife 30 gram protein - 30g protein & 3g carb BOOST Glucose Control Max 30g Protein Nutritional Drink - 30g protein & 1 carb - meal replacement Slimfast High Protein - 20g protein & 1g carb Ensure Max Protein Nutrition Shake 30g protein & 2 carb Protein AND carbs Beef/Grayson Jerky 1 oz dried 10-15g protein - check carb count, can be high if sugar added Slim Jerardo - 6 gm protein and 4 net carb Great Value original turkey sausage sticks - 7 gm protein and 2 gm carb Sharmila & Shyam (at [facility]) Original smoked sausage sticks - 8 gm protein and 0 carb Imitation Crab Meat 1 oz - 2g protein & 4g carb Milk, skim 2% or 1% 8 oz - 8g protein & 12g carb Fairlife 2% milk 8 oz -13 g protein & 6g carb Guyanese yogurt Full Fat Guyanese Yogurt 1 cup - 20.4g protein & 9.1g carb 2% Guyanese Yogurt 1 cup - 22.7g protein & 9.1g carb 0% (fat-free) Guyanese Yogurt - 1 cup 24g protein & 9.3g carb Aldi Protein Guyanese yogurt single svg - 13/g15g protein & 7g carb Chobani Zero Sugar single svg: - 12g protein & 5g carb Chobani drinkable 15g, 20g and 30g protein & 18 carb Dannon Guyanese Light + Fit 1 single svg - 12g protein & 9g carb Oikos Pro single svg - 20g protein & 8g carb Oikos Triple Zero Guyanese Nonfat Yogurt 1 single svg - 15g protein & 7g carb Oikos Pro drinkable yogurt 1 single svg - 23 g protein & 8 g carb :ratio, KETO Friendly Dairy Snack 1 single svg - 15g protein & 2g carb :ratio Protein 1 single svg - 25g protein & 8g carb Two Good Lowfat Guyanese Yogurt, [place], Lower Sugar - 12g protein & 2g carb Yoplait Protein 1 single svg 15gm protein & 5gm carb Dairy Free - [place] unsweetened Guyanese almond/soy 15 gm protein & 3 gm carb Dairy Free - True Goodness by [facility] coconut-based yogurt alternative 1 gm protein 1 gm net carb 180 maude Cheese each oz Brie 5.9g protein & 0.1g carb Cheddar 7g protein & 0.4g carb Rishi 6.7g protein & 0.7g carb Cream Cheese 1.7g protein & 1.2g carb Feta 4g protein & 1.2g carb Mozzarella 6.3g protein & 0.6g carb Parmesan 10g protein & 0.9g carb Northern Irish 7.6g protein & 1.5g carb Cottage Cheese 1/2 c Breakstone 2% 13g protein 7g carb Kayleigh 2% 13g protein 5 g carb Good Culture 2% 14g protein 3g carb Ma s Low Fat 12g protein & 4g carb Legumes Lentils cup 9g protein & 20g carb Ann beans cup 7g protein & 20g carb Kidney, Black, [place], Cannellini beans cup 8g protein & 20g carb Soybeans 1/2 c 14g complete protein & 8.5g carb [place] milk, unsweetened 8 oz 1g protein & 2g carb Soy milk 8 oz 3.5g protein & 1.6g carb Tofu 1/2 cup 10g protein & 2.3g carb Peanut butter, natural 2 Tbsp 7-8g protein & 4g net carbs, 190 calories PB2 powder 2 Tbsp 6g protein & 5g carb Nuts and Seeds per oz Almonds - 5.9g protein & 6.1g carb [place] Nuts - 4.0g protein & 3.4g carb Cashews - 5.1g protein & 9.2g carb Hazelnuts - 4.2g protein & 4.7g carb Hemp seeds/hearts 3 T/30 gms - 9.5 gm complete protein and 2.5 gm carb Peanuts - 7g protein & 4.6g carb Pecans - 2.6g protein & 3.9g carb Pistachios - 5.8g protein & 7.8g carb Pumpkin Seeds - 6.9g protein & 5g carb Simpson Seeds - 5.8g protein & 5.6g carb Walnuts - 4.3g protein & 3.8g carb Edamame Beans (soybean) snack 1 pack 11 gm complete protein 2 carb 5 (FIVE) gram carb vegetable options 1 cup raw OR cup cooked: Asparagus Nicholson sprouts Beets Broccoli Brussel sprouts Cabbage Carrots Cauliflower Celery [place] Eggplant Green beans Lettuce Peppers Snap peas Spaghetti squash Spinach Tomato Turnips Zucchini 15 gram carb vegetable options cup cooked corn or hominy corn on the cob, large (5 oz) cup cooked green peas 4.3 gm complete protein cup cooked ann beans 1 small potato or sweet potato cup cooked potato, plain cup cooked sweet potato, plain 1 cup winter squash (pumpkin, acorn, butternut) 1 cup marinara or pasta sauce - check label cup tomato juice cup tomato puree Beans, Seeds, Nuts cup cooked beans (kidney, valencia, red, green, etc.) cup cooked lentils cup baked beans 4 tablespoons nut butter [...] High Protein Snack Ideas 1. Jerky 2. [place] mix without dried fruit 3. [place] roll-ups 4. Guyanese yogurt 5. Veggies and yogurt dip 6. Tuna 7. Hard-boiled eggs 8. Peanut butter with celery 9. Cheese slices/ Cheese Stick 10. Handful of almonds, peanuts or walnuts 11. Cottage Cheese 12. Beef sticks 13. Protein bars 14. Canned Eagar 15. Pumpkin seeds 16. Nut butter 17. Protein shakes 18. Avocado and chicken salad 19. Egg muffins 20. Leftover protein or lunch meat 21. 1/2 c blended cottage cheese or Guyanese yogurt with dry ranch/Mrs. Dash/herb seasoning mix [...] skinny syrup and crushed nuts and freeze documented in this encounter [facility] 10-31-2024 Instructions Jaclyn Ivory APRN.ENVIRONMENTAL REMEDIATION ENGINEER - 10/31/2024 7:25 AM EDT Increase metformin to 1 gm with lunch [...] with pre-diabetes found that 15 minutes of dkci-ew-cifaludo exercise after every meal curbed risky blood [...] the Clinical Exercise Physiology Laboratory at the [facility] ([facility]) using whole room calorimeters. Ludy Ruff, Ph.D., chair of the [facility] Department of Exercise Science, led the study. These findings are good news for people in their 70s and 80s who may feel more capable of engaging in intermittent physical activity on a daily basis, Speedy said in a press release. Putting Humans in a Box to Measure Their Energy Use The whole room calorimeter (WRM), which looks like a very small hotel room, is a controlled-air environment for human study that allows scientists to calculate a person s energy expenditure by testing samples of air. The balance of oxygen consumed and carbon dioxide produced varies according to the activity level of the person in the room. The WRM also measures the body s use of different food fuels, such as [...] often lasts well into the night and painter chassis--was curbed significantly as soon as the participants [...] which often occurs as the body ages. Post-meal high blood sugar is a benson risk factor in the progression from impaired glucose tolerance (pre-diabetes) to type 2 diabetes and cardiovascular disease, Speedy explained. Other studies have suggested that weight loss and exercise can prevent type 2 diabetes. The authors say theirs is the first study to examine short bouts of physical activity timed around the risky period following meals--a time when blood sugar can rise rapidly and potentially cause damage to internal organs and blood vessels. The muscle contractions connected with short walks were immediately effective in blunting the potentially damaging elevations in post-meal blood sugar commonly observed in older people, Speedy said. If the findings of this small study hold up to further testing, it could lead to an inexpensive prevention strategy for pre-diabetes, which can develop over time into type 2 diabetes. Back in the day, it was de rigueur to take a morning, noon, and evening walk. The time has come to get up from the table, tie on those walking shoes, and take a little stroll around the block. https://www.Audiodraft.Videolicious/healt h-news/scsus-aeogszm-hnpob-meals -nc-ylkruwe-fkvxm-wqufi-vbjzgg-1 00001 . documented in this encounter [facility] 10-31-2024 History of Presen t illness Narrative Images from the original note were not included. Some documentation from previous visit of 10/02/2024 [...] shake at 0730 makes her hungry around [id number] Stopped coffee in am and sweet tea [...] S - none D - 7-8 pm leagne or tacos or sausage rice casserole or teriyaki chicken and rice or grilled meat/baked potato with tea with SF drink mixes. eats out 3-4 times a week Chipotle - Steak, white rice, black beans, s cream, cheese, corn tomatoes, chips, sweet tea Subway - 6 in wheat Latvian parra ve sweet tea Red Lobster - shrimp scampi, 2 biscuits, occas Anshul salad, sweet tea [place] - chicken fingers, fries or smothered grilled [...] of sugar sweetened beverages, and skip meals. 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 Not hungry, gets full easily, stays full for up to 6 hours. 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 no Work-related activity:Sedentary. 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 No distress. Results: recent labs reviewed with the patient. Latest Ref Rng & Units 10/02/2024 CMP Sodium 136 - 144 mmol/L 137 Potassium 3.7 - 5.1 mmol/L 3.8 Chloride 98 - 107 mmol/L 104 CO2 22 - 30 mmol/L 21 Glucose 74 - 99 mg/dL 97 BUN 7 - 21 mg/dL 15 Creatinine 0.58 - 0.96 mg/dL 0.59 EGFR >=60 mL/min/1.73m 119 Protein, Total 6.3 - 8.0 g/dL [...] 10/02/2024 238 06/08/2019 81 Latest Ref Rng & Units 10/02/2024 CBC WBC 3.70 - 11.00 [...] N Criteria met 10/17: Y Assessment/Plan: Forest Nguyen is a 39 year old yo with Class II obesity (Body mass index is 34.27 kg/m .) who presented today for follow up for [...] training and cardiovascular exercise is the best custodial plan. An overall goal of 150-200 minutes per week of exercise has been effective in weight loss and maintenance. Prescription instructions reviewed with patient as applicable. Potential red flag symptoms discussed with the patient. Reviewed appropriate action plan to take if red flag symptoms occur. Patient agreeable to treatment plan. Follow up in 4 weeks Jaclyn Ivory CNP Advanced Education from the Obesity Medicine Association Medical Decision Making: Problems: Moderate: 1+ chronic illnesses with change and 2+ stable chronic illnesses Risk: Moderate: Drug management and Moderate risk from testing/treatment Medical Decision Making Level: 4 - Moderate documented in this encounter [facility] 10-31-2024 Note HNO ID: [id number] Author: JACLYN IVORY APRN.CNP Service: ? Author Type: Nurse Practitioner Type: [...] shake at 0730 makes her hungry around [phone] Stopped coffee in am and sweet tea [...] - SKIP/ WE if did not eat bkLoginRadius Arby's RB sandwich with sauce or leftovers S - none D - 7-8 pm lasagne or tacos or sausage rice casserole or teriyaki chicken and rice or grilled meat/baked potato with tea with SF drink mixes. eats out 3-4 times a week Chipotle - Steak, white rice, black beans, s cream, cheese, corn tomatoes, chips, sweet tea Subway - 6 in wheat Latvian parra veg sweet tea Red Lobster - shrimp scampi, 2 biscuits, occas Anshul salad, sweet tea [place] - chicken fingers, fries or smothered grilled [...] of sugar sweetened beverages, and skip meals. 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 Not hungry, gets full easily, stays full for up to 6 hours. 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 no Work-related activity:Sedentary. 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 [...] GEN: Fatigue:yes GI: GERD:yes - Prilosec NEURO: Migraines/ESPINOZA (more content not included)... [facility] 10-02-2024 Note HNO ID: [id number] Author: JACLYN IVORY APRN.ENVIRONMENTAL REMEDIATION ENGINEER Service: ? Author Type: Nurse Practitioner Type: Progress Notes Filed: 10/02/2024 10:52 Note Text: Patient Summary: Forest Nguyen is a 39 year old female with [...] - SKIP/ WE if did not eat Eletrogóes's RB sandwich with sauce or leftovers S - none D - 7-8 pm lasagne or tacos or sausage rice casserole or teriyaki chicken and rice or grilled meat/baked potato with tea with SF drink mixes. eats out 3-4 times a week Chipotle - Steak, white rice, black beans, s cream, cheese, corn tomatoes, chips, sweet tea Subway - 6 in wheat Latvian parra veg sweet tea Red Lobster - shrimp scampi, 2 biscuits, occas Anshul salad, sweet tea [place] - chicken fingers, fries or smothered grilled [...] of sugar sweetened beverages, and skip meals. 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 Not hungry, gets full easily, stays full for up to 6 hours. Eating Disorder no Cravings: salty, crunchy Sleep Duration: 6-7 hours. 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 [...] was not effective and costly. Caloric restriction, Film Process Operator, Exercise/increased activity, Low Carbohydrate diet, MyFitnessPal, Slimfast, Starvation, Weight watchers, and Optavia Recently - difficult to lose any weight Exercise: Regular exercise: no Strength/resistance exercise:no Barriers to regula (more content not included)... [facility] 10-02-2024 History of Presen t illness Narrative Images from the original note were not included. Patient Summary: Forest Nguyen is a 39 year old female with [...] - SKIP/ WE if did not eat Eletrogóes's RB sandwich with sauce or leftovers S - none D - 7-8 pm lasagne or tacos or sausage rice casserole or teriyaki chicken and rice or grilled meat/baked potato with tea with SF drink mixes. eats out 3-4 times a week Chipotle - Steak, white rice, black beans, s cream, cheese, corn tomatoes, chips, sweet tea Subway - 6 in wheat Latvian parra veg sweet tea Red Lobster - shrimp scampi, 2 biscuits, occas Anshul salad, sweet tea [place] - chicken fingers, fries or smothered grilled [...] of sugar sweetened beverages, and skip meals. 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 Not hungry, gets full easily, stays full for up to 6 hours. Eating Disorder no Cravings: salty, crunchy Sleep Duration: 6-7 hours. 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 [...] was not effective and costly. Caloric restriction, Film Process Operator, Exercise/increased activity, Low Carbohydrate diet, MyFitnessPal, Slimfast, Starvation, Weight watchers, and Optavia Recently - difficult to lose any weight Exercise: Regular exercise: no Strength/resistance exercise:no Barriers to regular exercise? no Work-related activity:Sedentary. 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 Central adiposity. SKIN: acanthosis nigricans no, Skin tags: yes Hirsutism: no HEENT: PERRL, No supraclavicular adiposity. No dorsal adiposity. RESPIRATORY: CBTA CARDIAC: RRR ABDOMEN: Small pannus; EXTREMITIES: peripheral edema: no Results: reviewed with the patient No visits with results within 3 Month(s) from this visit. Impression: Forest Nguyen is a 39 year old Female with Class II obesity (Body mass index is 34.27 kg/m .) who has adolescence obesity with several periods [...] intervention is the best and most appropriate custodial therapeutic option. - INSULIN, TOTAL, SERUM - HEMOGLOBIN A1C - COMPLETE BLOOD COUNT - LIPID PANEL BASIC - COMPREHENSIVE METABOLIC PANEL Reception Centre Manager of impaired eating habits:emotion and stress causes [...] training and cardiovascular exercise is the best terminal block assembler plan. An overall goal of 150-200 minutes [...] weeks for management of above interventions Jaclyn Ivory CNP Advanced Education from the Obesity Medicine Association I spent a total of 77 minutes on the date of the service which included preparing to see the patient, btyh-sz-bwgq patient care, completing clinical documentation, obtaining and/or reviewing separately obtained history, performing a medically appropriate examination, counseling and educating the patient/family/caregiver, and ordering medications, tests, or procedures. documented in this encounter [facility] 10-02-2024 Instructions Jaclyn Ivory APRN.CNP - 10/02/2024 7:34 AM EST Images from the original note were not included. Weight Management: You have taken the initiative [...] slots. This should not be done on [facility] as you will not be scheduled appropriately and will need to be rescheduled.[phone] We appreciate that you have entrusted us with your health and know that we are committed to this process with you. Sincerely, Mariah Vasquez MD, HEMAL LACKEY & Jaclyn Ivory CNP Advanced Education from the Obesity Medicine Association Obesity Obesity is a disease that affects nearly one-third of the adult [place] population (approximately 60 million). The number of overweight and obese Americans has continued to increase since 1959, a trend that is not slowing down. Today, 64.5 percent of adult Americans (about 127 million) are categorized as being overweight or obese. Each year, obesity causes at least 300,000 excess deaths in the [place] and healthcare costs of [place] adults with obesity amount to approximately $100 [...] the gallbladder, breast, uterus, cervix, or ovaries https://my.[facility].org/h ealt/diseases/16452-ijkski-ritk tcdniq-jbyhczz-toaoxcbii - Eat primarily whole foods. Limit carbs, [...] with pre-diabetes found that 15 minutes of wchc-vm-duwquurx exercise after every meal curbed risky blood [...] the Clinical Exercise Physiology Laboratory at the [facility] ([facility]) using whole room calorimeters. Ludy Ruff, Ph.D., chair of the [facility] Department of Exercise Science, led the study. These findings are good news for people in their 70s and 80s who may feel more capable of engaging in intermittent physical activity on a daily basis, Speedy said in a press release. Putting Humans in a Box to Measure Their Energy Use The whole room calorimeter (WRM), which looks like a very small hotel room, is a controlled-air environment for human study that allows scientists to calculate a person s energy expenditure by testing samples of air. The balance of oxygen consumed and carbon dioxide produced varies according to the activity level of the person in the room. The WRM also measures the body s use of different food fuels, such as carbohydrates, proteins, and fats. The 10 study participants spent three 48-hour periods in the small calorimeter rooms. Each room was equipped with a bed, toilet, sink, treadmill, television, and computer, leaving little room to move around. Participants ate standardized meals, and their blood sugar levels were monitored continuously using blood tests. The first day in the [facility] served as a control period, with no [...] often lasts well into the night and painter chassis--was curbed significantly as soon as the participants [...] which often occurs as the body ages. Post-meal high blood sugar is a benson risk factor in the progression from impaired glucose tolerance (pre-diabetes) to type 2 diabetes and cardiovascular disease, Speedy explained. Other studies have suggested that weight loss and exercise can prevent type 2 diabetes. The authors say theirs is the first study to examine short bouts of physical activity timed around the risky period following meals--a time when blood sugar can rise rapidly and potentially cause damage to internal organs and blood vessels. The muscle contractions connected with short walks were immediately effective in blunting the potentially damaging elevations in post-meal blood sugar commonly observed in older people, Speedy said. If the findings of this small study hold up to further testing, it could lead to an inexpensive prevention strategy for pre-diabetes, which can develop over time into type 2 diabetes. Back in the day, it was de rigueur to take a morning, noon, and evening walk. The time has come to get up from the table, tie on those walking shoes, and take a little stroll around the block. https://www.Xceedium/FedCybert h-news/abqlc-iaslkhy-ivzsz-meals -tj-tbfntrl-nbbhr-lrpsn-wyobzf-8 19354 METFORMIN Dosing -- Begin Metformin 500 ER [...] also being explored in the management of obesity s sequelae such as hepatic steatosis, obstructive sleep apnea and osteoarthritis. Effectiveness of metformin on weight loss in non-diabetic individuals with obesity - PubMed (nih.gov) Is metformin a wonder drug? - [facility] Common side effects of this medication [...] MD, clinical director of adult diabetes at [facility], explains why timing metformin [...] night in treating fasting high blood sugar. https://www.TelemetryWeb/artic le/399587-itjd-hb-h-nzge-opzwndj aq-duf-pu-jnpu-dgipgsz-nq-night/ Metformin: Patient drug information Warning Rarely, metformin [...] understood. Topiramate affects body mass index, fasting lmbtbox-ck-vgyeoco ratio, and serum leptin and cortisol levels. [...] irritability, anxiety and difficulty concentrating. Topiramate (toe pyre a mate) What are the common names? [...] by helping you feel less hungry, less driven to eat, more satisfied with less food. [...] Drug interactions. Use of monamine oxidase inhibitors (MAOI s), valproic acid, Caution use with dehydration or diarrheal illness, hepatic or renal impairment In case of emergency/overdose In case of overdose, call your local poison control center at or call local emergency services at [phone]. What other information should I know? Keep all appointments with your doctor and the laboratory. Do not let anyone else take your medication. Topiramate use needs to be monitored closely. Prescriptions may be refilled only a limited number of times. Keep a written list of all of your prescription and nonprescription (qfqt-bow-ylttbby) medicines, in addition to vitamins, minerals, or [...] for a missed one. Sources Pubmed Health: http://www.ncbi.nlm.nih.gov/pubm edhealth/LRQ4116145/ Drugs.com http://www.drugs.com/pro/topiram ate.html documented in this encounter [facility] 06-13-2024 Note HNO ID: [id number] Author: SIMA MILLIGAN MD Service: ? Author Type: Physician [...] L1 SAB0 IAB0 Ectopic0 Multiple0 Live Births1 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 As applicable, any other physician, advance practice provider, medical student, or other health professional student that will be observing or involved in the sensitive examination for educational or training purposes was discussed with the Patient or Authorized Skills Auditor. The Patient or Authorized Skills Auditor has agreed to proceed with the sensitive [...] external genitalia normal, normal Bartholin's glands, urethra, Falling Water's glands, no vulvar lesions, no cervical lesions, [...] up one year or sooner as needed Sima Milligan MD [facility] 06-13-2024 History of Presen t illness Narrative Forest is a 39 year old who presents for an annual gynecologic exam without complaints. Menses: cycles every 28-30 days and 4-5 days of flow. 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 As applicable, any other physician, advance practice provider, medical student, or other health professional student that will be observing or involved in the sensitive examination for educational or training purposes was discussed with the Patient or Authorized Skills Auditor. The Patient or Authorized Skills Auditor has agreed to proceed with the sensitive examination. (Sensitive examination includes inspection and/or palpation of the breasts, pelvis, prostate and anorectal regions). EXAM: BP 164/102 Ht 4' 11 (1.50m) Wt 176 lb (79.8kg) LMP 05/29/2024 BMI 35.53 kg/(m^2). GENERAL: pleasant, female in no apparent distress [...] external genitalia normal, normal Bartholin's glands, urethra, Falling Water's glands, no vulvar lesions, no cervical lesions, [...] up one year or sooner as needed Sima Milligan MD documented in this encounter [facility] 11-29-2023 Miscellaneous Notes please sign orders for Huerta to input Kena Burrows RN November 29, 2023 3:41 PM documented in this encounter [facility] 05-28-2023 History of Presen t illness Narrative I have communicated my name and active licensure. The patient's identity and physical location were verified at the time of this visit. Either the patient or their legal door to door sales representative has been informed of the risks and benefits of -- and alternatives to -- treatment through a remote evaluation and consents to proceed with the evaluation remotely. VIRTUAL VISIT FOLLOW UP I had a virtual visit with Ms. Nguyen today for follow up of fatty liver. UPDATED HISTORY: CC: Patient presents with: Follow Up HPI: Ms. Nguyen is a 38 year old Female with past medical history of NAFLD, gastroparesis, HTN, GAVE, GERD, migraines, presenting today for follow up of MASLD. Patient was last seen by myself 11/23/22. At last visit: Discussed pathophysiology of NAFLD with metabolic syndrome risk factors, need for weight loss to prevent progression of fibrosis. Reviewed various non-invasive and invasive weight loss options, she would like to increase her level of exercise prior to further intervention. PLAN Annual fibroscan, next 11/2023 Lfts every 3 months, next January 2023 Weight loss 10% of body weight Mediterranean diet Increase cardiovascular exercise weight goal >45 minutes 5 days weekly No alcohol ideal, limit to 1-3 drinks a week at most Tight control of metabolic syndrome risk factors essential, recommend annual fasting lipid panel/hgb a1c, PCP to assist with management/surveillance Okay to use tylenol, not to exceed 2,000 mg daily Can refer to nutrition/endocrine medical weight management if ever interested Follow up with Dr. Fountain as scheduled 1st Twinrix today, repeat in 1 and 6 months Follow up in 6 months, can be virtual. Interval hx: Weight at last visit 183 pounds-weight at home now 166 pounds EGD 02/04 demonstrated type 1 hiatal hernia-following with GI Has lost 15 pounds since last visit-feeling better. Cut out pop (had been drinking diet pop) and no longer eats after 6pm, seems to have helped with weight loss and also GI related symptoms Last lfts with mildly elevated ALT Denies current issues with ascites, HE, hematemesis, hematochezia, confusion, dark urine, kierra colored stool, nausea, vomiting, weight loss, early satiety, bloating, dysphagia, odynophagia, change in bm. Remaining systems reviewed and are negative. Computed MELD 3.0 unavailable. Necessary lab results were not found in the last year. Computed MELD-Na unavailable. Necessary lab results were not found in the last year. PAST MEDICAL HISTORY Diagnosis Date Abnormal Pap smear of cervix Acid reflux HTN (hypertension) Infertility management male factor Infertility, female male factor Nonalcoholic fatty liver disease 10/23/2022 PAST SURGICAL HISTORY Procedure Laterality Date HYSTEROSCOPY removal of polyp IVF RETRIEVAL ANY METHOD FAMILY HISTORY Problem Relation Age of Onset Hypertension Mother Breast Cancer Mother Hypertension Father No Known Problems Sister No [...] Never Smokeless tobacco: Never Vaping Use Vaping Use: Never used Substance Use Topics Alcohol use: Yes Comment: Social, not while Drug use: No Current Outpatient Medications Medication Sig Dispense Refill amLODIPine (NORVASC) 10 mg tablet Take 1 tablet by mouth once daily. 90 tablet 1 labetalol (TRANDATE) 200 mg tablet Take 1 tablet by mouth three times daily. (Patient taking differently: Take 200 mg by mouth twice daily.) 90 tablet 1 omeprazole (PRILOSEC) 40 mg capsule Take 1 capsule by mouth twice daily before meals. 180 capsule 1 No current facility-administered medications for this visit. ALLERGIES No Known Allergies REVIEW OF SYSTEMS: PAIN ASSESSMENT: Negative for pain, history of chronic pain, or current treatment for a chronic pain condition. GENERAL: Weight loss RESPIRATORY: Negative for cough, hemoptysis, wheezing, COPD, dyspnea or shortness of breath CARDIOVASCULAR: Negative for chest pain, leg swelling, CHF or palpitations GI: See HPI : Not reviewed LAW FIRM RECEPTIONIST: Not reviewed PHYSICAL FINDINGS OF NOTE: Patient reported weight 166 lbs General - Normal, healthy, cooperative, in no acute distress Able to interact verbally by video conference Psych - ORIENTATION: normal to time place, person and situation Mood/Affect: AFFECT AND MOOD: Normal Head/Neuro - Normal size and shape Facial appearance normal Pulmonary - respiratory effort normal Cardiovascular - patient describes extremities normal and warm Abdominal - Not performed Skin - abnormal lesions not visualized Motor - patient seen sitting with Normal appearing strength and coordination REVIEWED ITEMS EGD 02/04: Findings: The examined portions of the nasopharynx, oropharynx and larynx were normal. Normal mucosa was found in the entire esophagus. The Z-line was regular and was found 34 cm from the incisors. A 2 cm hiatal hernia was present. The entire examined stomach was normal. The examined duodenum was normal. No endoscopic abnormality was evident in the esophagus to explain the patient's complaint of dysphagia. It was decided, however, to proceed with dilation of the entire esophagus. A guidewire was placed and the scope was withdrawn. Dilation was performed with a Savary dilator with mild resistance at 57 Fr. The dilation site was examined following endoscope reinsertion and showed complete resolution of luminal narrowing. Estimated blood loss was minimal. The HUERTA capsule with delivery system was introduced through the mouth and advanced into the esophagus, such that the HUERTA pH capsule was positioned 28 cm from the incisors, which was 6 cm proximal to the GE junction. The HUERTA pH capsule was then deployed and attached to the esophageal mucosa. The delivery system was then withdrawn. Endoscopy was utilized for probe placement and diagnostic evaluation. Impression: - The examined portions of the nasopharynx, oropharynx and larynx were normal. - Normal mucosa was found in the entire esophagus. - Z-line regular, 34 cm from the incisors. C0M0 - 2-3 cm Type 1 hiatal hernia. - Hill IV flap valve - Normal stomach. - Normal examined duodenum. - No endoscopic esophageal abnormality to explain patient's dysphagia. Esophagus dilated. Dilated to 57Fr savary - The HUERTA pH capsule was deployed. - No specimens collected. Recommendation: - Discharge patient to home (ambulatory). - Resume previous diet today. - Continue present medications. - Return to my office as previously scheduled. - Written discharge instructions were provided to the patient. - The signs and symptoms of potential delayed complications were discussed with the patient. - Patient has a contact number available for emergencies. - Return to normal activities tomorrow. Procedure Code(s): --- Professional --- 47766, Esophagogastroduodenoscopy, flexible, transoral; with insertion of guide wire followed by passage of dilator(s) through esophagus over guide wire Diagnosis Code(s): --- Professional --- K44.9, Diaphragmatic hernia without obstruction or gangrene R13.10, Dysphagia, unspecified K31.84, Gastroparesis K21.9, Gastro-esophageal reflux disease without esophagitis US abdomen 09/23/22: FINDINGS: Liver: The liver measures 16.5 cm. There is increased echogenicity consistent with fatty infiltration. The bile ducts are within normal limits. There is hepatic color flow. The direction of portal flow is hepatopetal. There is no demonstrated mass lesion. Gallbladder: Normal distended gallbladder. The gallbladder wall measures 1 mm. There is a negative sonographic Saravia''s sign. There is no pericholecystic fluid. There are no gallstones. Common Bile Duct (C.B.D.): The common bile duct measures 4 mm. Pancreas: Normal size of the head, body and tail of the pancreas. There is normal echogenicity of the pancreas. There is no demonstrated pancreatic mass or cyst. Right Kidney: Normal size of the right kidney. The right kidney measures 10.6 cm x 5.4 cm x 4.8 cm. Normal renal cortex. The right cortex measures 1.7 cm. There is no demonstrated renal mass or cyst. There is no right hydronephrosis. ___ US/Abdomen Limited IMPRESSION: Diffuse fatty infiltration of the liver. IMPRESSION Ms. Nguyen is a 38 year old Female with past medical history of NAFLD, gastroparesis, HTN, GAVE, GERD, migraines, presenting today for follow up of MASLD. Has been able to lose 15 pounds since last visit, through lifestyle modification. Has been working with GI to further evaluate symptoms related to hiatal hernia and now feeling much better. Discussed need to update testing as below, congratulated her on weight loss. Plan: Update fibroscan now Repeat LFTs now Continue weight loss efforts, goal BMI <30 if possible Mediterranean diet/increased cardiovascular exercise with goal >45 minutes 5 days weekly Avoid liver detox cleanse/supplements Not to exceed 2,000 mg tylenol daily Continue GI follow up for hiatal hernia Completed 1st Twinrix, check immunity now prior to repeat vaccination Follow up pending above results. I spent a total of 30 minutes on the date of the service which included preparing to see the patient, [id number] patient care, completing clinical documentation, obtaining and/or reviewing separately obtained history, performing a medically appropriate examination, counseling and educating the patient/family/caregiver, ordering medications, tests, or procedures, communicating with other HCPs (not separately reported), and independently interpreting results (not separately reported). Lydia Gaona PA-C May 28, 2023 11:12 AM documented in this encounter [facility] 02-24-2023 History of Presen t illness Narrative Images from the original note were not included. [facility] [place] Gastroparesis/Dysmotility Virtual Follow Up This encounter was provided via two-way, live video teleconferencing within the guidelines of state licensure rules for new and established patients. I have communicated my name and active licensure. The patient's identity and physical location were verified at the time of this visit. Either the patient or their legal door to door sales representative has been informed of the risks and benefits of -- and alternatives to -- treatment through a remote evaluation and consents to proceed with the evaluation remotely. Technical difficulties were not encountered. 30 minutes were spent on the teleconference with the patient. An additional 15 minutes was required for chart review/preparation, documentation, orders, and care coordination. SERVICE DATE: 02/24/2023 SERVICE TIME: 2:31 PM PRIMARY CARE PHYSICIAN: Zenaida Stacy PA-C Assessment ASSESSMENT 38 year old female with GERD and delayed gastric emptying (without significant dyspepsia), the etiology of which is unclear. There was initial concern over possible gastric compression by the left liver in the setting of hepatomegaly/NAFLD, however this was not endoscopically observed. Endoscopically there is a small 2cm type-1 hiatal hernia, but no other obvious intraluminal pathology. Huerta showing mild-moderate GERD with DeMeester scores of 15.1/29.4, mostly upright position, but without statistically significant symptom correlation. She has about 85% subjective symptom control with BID PPI and lifestyle interventions. Dysphagia has nearly resolved with 57 Danish savory dilation. There is no clinical suspicion for mid/hind-gut dysmotility based on bowel patterns and symptom distribution. Case is further confounded by NAFLD of unknown etiology and Class I obesity. Currently patient is tolerating a Regular diet, and is successful in process of intentional lifestyle mediated gradual weight loss. We had extensive discussion today regarding the nature of her case and potential options moving forward. Surgically she would be a candidate for laparoscopic hiatal hernia repair with partial (toupee) fundoplication. This would provide reasonable reflux control given her current DeMeester scores, and reduce the risk of dysphagia. However given her current BMI and young age she is at above average risk of hernia recurrence at some point in the future. We also discussed the options of continued medical therapy as well as the pros and cons of long-term PPI use. Even in patients with some breakthrough reflux, PPI therapy dramatically reduces the risk of GERD related complications (Mcfarlane's, stricture etc.). Given her premenopausal status calcium absorption risk is generally a minimal concern, and can be counteracted with calcium citrate supplementation if needed. Given her minimal dyspepsia I do feel that her delayed gastric emptying is more incidental and does not require any immediate interventions. Based on discussion patient wishes to continue with medical and lifestyle mediated therapies, which I agree is probably the most reasonable and lowest risk option at least in the short-medium term. In the event that she has worsening dyspepsia, she can be reassessed for pyloric therapy PLAN I discussed surgical therapy for gastroparesis in detail. Based on this discussion, Forest Humphries Wendy wishes to proceed with continued medical and lifestyle mediated therapies -Continue PPI BID, we did discuss concerns over possible side-effects and longer-term use -Discussed GERD lifestyle interventions including limiting meals to >4hrs prior to bed, avoiding carbonation/alcohol/caffeine/darin otine, raising head of bed at least 6 inches -Recommend continued medical weight loss efforts to decrease abdominal girth and to shrink liver -Follow up in 1 year for recheck and rediscussions, sooner if needed. NAME: Forest Humphries [facility] NO: [id number] CHIEF COMPLAINT Idiopathic Gastroparesis HISTORY OF PRESENT ILLNESS History is notable for GERD, HTN, migraines, and NAFLD. Patient had an abnormal gastric emptying study in 10/2022 showing 26% retention at 4 hours Patient states that in 2019, she developed severe heartburn and regurgitation around the time of her . Prior to this, she did not have any reflux symptoms. Symptoms continued to worsen and evolved to a chronic cough. Symptoms are worse at night time. She was increased to Prilosec 40mg BID. She was evaluated locally, and underwent EGD in 10/2021. During this scope, she was found to have bile reflux as well as watermelon stomach striations. She had a liver US, fibroscan, and elastography, and GES shortly after. Diagnosed with NAFLD and GP. Was seen by an ENT and everything looked fine. Has been following with fuel distribution system operator for liver shrinking diet. INTERVAL HPI: Since the procedure has been doing about the same. She does feel that the dilation helped to improve her food sticking. She did have significant chest pains for about 2 weeks after the dilation which did resolved. She did have worsening heartburn and regurgitation coming off PPI for the Huerta. Top 3 Symptoms: 1) Heartburn/Regurgitation, 2) N/A, 3) N/A Diet: Regular, smaller portions, avoiding carbonation Weight changes in last 3 months: Stable, intentionally lost 12lbs. GERD: Prilosec BID with 85% control of reflux. Dysphagia: Minimal improved with 57Fr dilation Bowel Movements: Regular, daily no issues. 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 - Normal mucosa was found in the entire esophagus. - Z-line regular, 34 cm from the incisors. C0M0 - 2-3 cm Type 1 hiatal hernia. - Hill IV flap valve - Normal stomach. - Normal examined duodenum. - No endoscopic esophageal abnormality to explain patient's dysphagia. Esophagus dilated. Dilated to 57Fr savary - The HUERTA pH capsule was deployed. - No specimens collected. Gastric Emptying Study Results (10/14/2022 [facility]) 1 Hour = 99% Retained 2 Hour = 88% Retained 4 Hour = 26% Retained SMART Pill (N/A) Not Ordered EGG (01/06/2023) Esophagram (10/2021) Findings: Esophagus: Swallowing function unremarkable.. Small sliding-type hiatal hernia is seen. No gastroesophageal reflux identified. Stomach: The stomach showed no evidence of persistent filling defects,ulceration or mass lesions. Gastroparesis cardinal symptom index 1. nausea 0 2. retching 0 3. vomiting 0 4. stomach fullness 1 5. not able to finish a normal-sized meal 0 6. feeling excessively full after meals 1 7. loss of appetite 3 8. bloating (feeling like you need to loosen your clothes) 0 9. stomach or belly visibly larger 0 GCSI - 0.42 GERD-HRQL 0 = no symptoms, 3 = Daily bothersome symptoms, 5 = Daily incapacitating symptoms 1) Heartburn - 2 2) Heartburn Supine - 3 3) Heartburn Upright - 1 4) Heartburn after meals - 2 5) Heartburn changing diet - 3 6) Heartburn waking from sleep - 3 7) Dysphagia - 1 8) Odynophagia - 0 9) Bloating/Gassy - 1 10) Acid Medication affecting Life - 0 11) Satisfied with current state - 2 Somewhat satisfied TOTAL (1-10): 16 Scale (0-none; 1-very mild; 2-mild; 3-moderate; 4-severe; 5-very severe) PAST HISTORY PAST MEDICAL HISTORY Diagnosis Date Abnormal Pap smear of cervix Acid reflux HTN (hypertension) Infertility management male factor Infertility, female male factor Nonalcoholic fatty liver disease 10/23/2022 PAST SURGICAL HISTORY Procedure Laterality Date HYSTEROSCOPY removal of polyp IVF RETRIEVAL ANY METHOD FAMILY HISTORY Problem Relation Age of Onset Hypertension Mother Breast Cancer Mother Hypertension Father No Known Problems Sister No [...] Never Smokeless tobacco: Never Vaping Use Vaping Use: Never used Substance Use Topics Alcohol use: Yes Comment: Social, not while Drug use: No Current Outpatient Medications on File Prior to Visit Medication Sig ursodiol (MEGAN) 250 mg tablet Take 250 mg by mouth twice daily. (Patient not taking: Reported on 01/06/2023) amLODIPine (NORVASC) 10 mg tablet Take 1 tablet by mouth once daily. labetalol (TRANDATE) 200 mg tablet Take 1 tablet by mouth three times daily. (Patient taking differently: Take 200 mg by mouth twice daily.) omeprazole (PRILOSEC) 40 mg capsule Take 1 capsule by mouth twice daily before meals. No current facility-administered medications on file prior to visit. REVIEW OF SYSTEMS: General: No weight loss, malaise or fevers. Neuro: No Hx of stroke or seizures Respiratory: No history of current cough or dyspnea, or pneumonia in the past 6 weeks. No history of respiratory/pulmonary symptoms or problems Cardiovascular: Positive for: Hypertension GI: See HPI : No history of UTI in past 6 weeks. No history of renal failure. Not currently on or requiring dialysis. No history of symptoms or problems. LAW FIRM RECEPTIONIST: Negative for abnormal vaginal bleeding, abnormal vaginal discharge. : Denies Endocrine: No history of diabetes. Has not taken steroids within the past 30 days. No history of endocrinological symptoms or problems. Hematology: No history of bleeding or clotting disorder. Pt is not taking anti-coagulation or platelet medications. No history of hematological symptoms or problems. Oncology: No history of CA metastasis, chemo within 30 days, or radiotherapy within 90 days. Has not lost 10% of body wt in 6 months. No history of oncological symptoms or problems. Psych: No history of psychiatric symptoms or problems. Musculoskeletal: Negative for joint pain or swelling, back pain or muscle pain. Skin: Negative for lesions, rash and itching. Physical Exam LMP 01/10/2023 (Exact Date) GENERAL: AAOx3, NAD EYES: Non-icteric, EOMI NOSE: Septum midline, no drainage ORAL: Tongue midline, no exudates NECK: Normal ROM PULM: Breathing non-labored without stridor or wheezing ABDOMEN: Reports soft, Non-distended, Non-tender EXTREMITIES: Normal ROM SKIN: Non-icteric, no diffuse rashes PSYCH: Appropriate mood and affect. SIGNATURE: Suzi Watkins DO PATIENT NAME: Forest Nguyen DATE: 02/24/2023 TIME: 2:32 PM Please note that portions of this documentation have been copied from the prior encounter however all information has been appropriately reviewed and modified to reflect the current clinical status and plan of care. documented in this encounter [facility] 02-11-2023 Instructions Suzi Watkins DO - 02/11/2023 5:29 PM EDT Huerta Report Positive 48-hr study for abnormal esophageal acid exposure evidenced by DeMeester scores of 15.1 and 29.4 on days 1 and 2 respectively. Yielding a composite of 25.2. Reflux occurred predominantly in the upright position. Statistically significant correlation of acid exposure with reported symptoms of chest pain and cough (SAP >95%), was not achieved. Your Huerta showed mild-moderate acid reflux. While some acid may have been responsible for your chest pain and coughing symptoms, this was not confirmed. Suzi Watkins DO documented in this encounter [facility] 02-11-2023 History of Presen t illness Narrative Summary: HUERTA REPORT Images from the original note were not included. documented in this encounter [facility] 02-09-2023 History and physical note UPDATED HISTORY AND PHYSICAL EXAMINATION SERVICE DATE: 02/09/2023 SERVICE TIME: 12:31 PM SERVICE: General Surgery PHYSICAL EXAM MUST BE COMPLETED ON ADMISSION The History and Physical (completed in the past 30 days) has been reviewed and the patient has been examined. The contents accurately reflect the patient's condition with the following additions or revisions since the H&P was completed. Denies chest pain, heart palpations, dizziness, fatigue, shortness of breath, cough, wheezing, headache, fever, abdominal pain, nausea, vomiting. Adequate time was taken to answer patient's questions. They have no further complaints at this time. PAST MEDICAL HISTORY Diagnosis Date Abnormal Pap smear of cervix Acid reflux HTN (hypertension) Infertility management male factor Infertility, female male factor Nonalcoholic fatty liver disease 10/23/2022 Planned procedure(s) for today is/are: EGD DIAGNOSTIC Medication reconciliation list reviewed in [facility]. Past medical history, past surgical history, social history and family history reviewed and updated in [facility]. ALLERGIES No Known Allergies See [facility] for vitals BP 124/88 Pulse 86 Temp 36.3 C (97.3 F) (Temporal) Resp 16 Ht 149.9 cm (4' 11) Wt 81.6 kg (180 lb) LMP 01/10/2023 (Exact Date) SpO2 97% BMI 36.36 kg/m Examination indicates no changes. On examination today: Lungs: Clear to auscultation bilaterally. Heart: RRR, Normal S1/S2, No murmurs, rubs, gallops or thrills appreciated. Abdomen: BS+ in all quadrants, abdomen is soft, non tender, and without guarding. Assessment: GERD Plan: EGD DIAGNOSTIC This H&P can be found in the Electronic Medical Record dated: 01/11/23 done by Elizabeth Dias APRN.ENVIRONMENTAL REMEDIATION ENGINEER SIGNATURE: Trinidad Christie PA-C PATIENT NAME: Forest Nguyen DATE: February 09, 2023 TIME: 12:31 PM documented in this encounter [facility] 02-04-2023 Nurse Note [facility] ENDOSCOPY PRE PROCEDURE CALL Maury. I'm calling from [facility] endoscopy to provide you with the information for your surgery/procedure tomorrow. Spoke to: voicemail and my chart documented in this encounter [facility] 01-18-2023 Miscellaneous Notes called patient to discuss No fever, is taking naproxen Vicodin and Flomax has not passed the stone rescheduled her EGD with [facility]erta to 02/09 and post follow up to 02/24 Kena Burrows RN January 18, 2023 11:51 AM Patient called and stated she did not know if she should cancel her EGD [facility] tomorrow on 01/[address] Watkins because she went to the ED last night for kidney stones. She is taking the medication but not sure it will be broken up by tomorrow. Patient asking if she should reschedule, please reach out to patient. Thank you! documented in this encounter [facility] 2023 Discharge summary Note Date/Time 2023 6:32p m [facility] Medical Records Department [address] [place] [address] Emergency Department Summary 01/17/23 MR#: [id number] Acct: [id number] Name: FOREST NGUYEN Rep #:[id number] : 1985 38 From: Tucker Bob MD PCP: Dr. Vijay Godinez MD Status:REG ER Location: ED HPI History of Present Illness Chief Complaint: Flank Pain Informant: patient Narrative Narrative: Patient presents with left lower quadrant/flank pain that really just started couple hours or so ago. Patient states its painful when she really points to the left lower quadrant in the lateral left flank. But its not around her back toward the CVA area. It started relatively quickly. She states she has nausea that comes in waves when the pain is bad. The pain waxes and wanes but does not go away. Nothing specifically makes it better or worse. She denies to me that she has ever had akidney stone. She did note that when she urinated today she thinks there was a little bit of blood when she wiped. Her last menstrual cycle was a week ago andshe has been very regular. She has not had any vaginal bleeding or discharge. She has no fevers or chills. Yesterday she felt perfectly fine. No change in medications. No history of intra-abdominal surgeries. [facility] Medical History Alcohol use Difficulty swallowing Gastric reflux GERD (gastroesophageal reflux disease) History of hiatal hernia History of in vitro fertilization Hypersomnia, unspecified Hypertension Migraine headache Morbid (severe) obesity due to excess calories Shortness of breath on exertion Vaginal delivery Wears contact lenses Home Medications amlodipine 10 mg tablet 10 mg PO DAILY chronic htn 03/19/19 [History Last Taken 08/18/22] labetalol 200 mg tablet 200 mg PO TID 04/09/22 [History Last Taken 08/18/22] omeprazole 40 mg capsule,delayed release 40 mg PO BID 04/09/22 [History Last Taken 08/18/22] ursodiol 250 mg tablet 250 mg PO BID #180 tabs 09/30/22 [Rx Last Taken Unknown] naproxen 500 mg tablet (Naprosyn) 500 mg PO BID PRN pain #20 tabs 01/17/23 [Rx Last Taken Unknown] ondansetron 4 mg disintegrating tablet 4 mg PO Q8H PRN PRN Nausea #10 tabs 01/17/23 [Rx Last Taken Unknown] oxycodone-acetaminophen 5 mg-325 mg tablet 1 tab PO Q6H PRN PRN Pain 3 days #12 TABLETS 01/17/23 [Rx Last Taken Unknown] tamsulosin 0.4 mg capsule (Flomax) 0.4 mg PO DAILY #7 caps 01/17/23 [Rx Last Taken Unknown] Allergy/AdvReac Type Severity Reaction Status Date / Time No Known Allergies Allergy Verified 01/17/23 18:07 Family History Mother Hypertension Aunt Lung cancer Grandmother Hypertension Heart disease Grandfather Hypertension Grandfather Diabetes Grandmother TIA (transient ischemic attack) Hypertension Uncle Colon cancer Surgical History Hx of wisdom tooth extraction Social History Smoking Status: Never smoker alcohol intake: current ROS ROS ED ROS Narrative A complete review of systems was performed and is negative except as documented in the history of present illness. Some specific details below. Constitutional: No recent fevers or chills. No malaise. ENT: No difficulty swallowing. No swelling. No pain. No symptoms of GERD although she has this as a history. CV: No chest pain or palpitations. Respiratory: No dyspnea. No hemoptysis. No difficulty taking breaths. GI: Please see history of present illness. : No frequency dysuria or hematuria. She did see a little bit of blood after urinating with wiping but does not know if she saw it actually in the urine. Musculoskeletal: No recent trauma. No pains. Skin: No rash. Nondiaphoretic. Neuro: No weakness or numbness. Endocrine: No polyuria or polydipsia. EXAM Physical Exam Narrative Exam Narrative: CONSTITUTIONAL: Patient is nontoxic in appearance. The patient looks comfortable. HEENT: No notable trauma. Mucous membranes moist. No sinus tenderness. No indication of pain with swallowing. EYES: No conjunctival injection. No proptosis. CARDIOVASCULAR: Regular rate. Regular rhythm. No notable murmur. No JVD. RESPIRATORY: No respiratory distress. Breathing is unlabored. No wheezes. No rhonchi. No rales. No pain with a deep breath. GASTROINTESTINAL: Not distended. Bowel sounds are normal. He does have a very mild left lower quadrant tenderness. No guarding. No rebound. No palpable mass. No bruit. GENITOURINARY: No tenderness over the bladder. No CVA tenderness on either side. MUSCULOSKELETAL: Atraumatic. No peripheral edema. NEUROLOGICAL: Patient is alert and appropriate. No focal deficit noted. SKIN: No noted rashes. No diaphoresis. PSYCHIATRIC: Patient is calm. Mood is appropriate. Const Vital Signs: 01/17/23 18:07 01/17/23 19:09 01/17/23 19:09 Temperature 98 F 98 F Temperature Source Temporal Temporal Pulse Rate 84 67 Respiratory Rate 14 18 Respiratory Pattern Normal Blood Pressure 179/79 H 191/118 H Blood Pressure Mean 112 142 Pulse Ox 98 97 Oxygen Delivery Method Room Air Room Air MDM MDM MDM Narrative Medical decision making narrative: My independent interpretation the patient's CT scan of the abdomen without contrast shows a mid ureteral stone about 4 to 4-1/2 mm in the left. Final reading is pending by radiology. CBC is normal including white count hemoglobin and platelets. Electrolytes show no marked abnormalities. Minimal decrease of sodium to only 135. Serum is negative. Urinalysis shows increased red cells and just a few white cells but this is more consistent with stone and not infection. Final reading by radiologist 3.1 mm mid ureteral stone. There is mild hydronephrosis. Patient is feeling better. She still has some pain. Nausea is gone. I will get her some more meds for pain. We will get her meds to go and Flomax. We discussed reasons to return needed follow-up possible future procedures and complications. Lab Data Attestation: I reviewed the patient's lab results. Labs: Laboratory Results - last 24 hr 01/17/23 01/17/23 01/17/23 18:40 18:40 18:40 WBC 8.7 RBC 5.87 H Hgb 14.6 Hct 45.2 MCV 77.0 L MCH 24.9 L MCHC 32.3 RDW Std Deviation 37.4 RDW Coeff of Too 13.6 Plt Count 308 MPV 10.3 Immature Gran % (Auto) 0.200 Neut % (Auto) 72.9 H Lymph % (Auto) 20.2 [place] % (Auto) 4.8 Eos % (Auto) 1.3 Baso % (Auto) 0.6 Absolute Neuts (auto) 6.3 Absolute Lymphs (auto) 1.76 Nucleated RBC % 0 Sodium 135 L Potassium 3.9 Chloride 107 Carbon Dioxide 24.0 Anion Gap 4 L BUN 11 Creatinine 0.72 Estim Creat Clear Calc 136.42 Est GFR (MDRD) Af Amer 118 Est GFR (MDRD) Non-Af 97 BUN/Creatinine Ratio 15.2 Glucose 93 Calcium 9.5 Serum , Qual NEGATIVE Urine Color Urine Clarity Urine pH Ur Specific [place] Urine Protein Urine Glucose (UA) Urine Ketones Urine Occult Blood Urine Nitrite Urine Bilirubin Urine Urobilinogen Ur Leukocyte Esterase Urine RBC Urine WBC Ur Squamous Epith Cells Urine Bacteria Urine Mucus 01/17/23 18:40 WBC RBC Hgb Hct MCV MCH MCHC RDW Std Deviation RDW Coeff of Too Plt Count MPV Immature Gran % (Auto) Neut % (Auto) Lymph % (Auto) [place] % (Auto) Eos % (Auto) Baso % (Auto) Absolute Neuts (auto) Absolute Lymphs (auto) Nucleated RBC % Sodium Potassium Chloride Carbon Dioxide Anion Gap BUN Creatinine Estim Creat Clear Calc Est GFR (MDRD) Af Amer Est GFR (MDRD) Non-Af BUN/Creatinine Ratio Glucose Calcium Serum , Qual Urine Color Yellow Urine Clarity Cloudy Urine pH 6.0 Ur Specific [place] 1.025 Urine Protein 100 H Urine Glucose (UA) Normal Urine Ketones 15 H Urine Occult Blood 250 H Urine Nitrite Negative Urine Bilirubin Negative Urine Urobilinogen Normal Ur Leukocyte Esterase 100 H Urine RBC > 100 SEEN Urine WBC 5-10 SEEN Ur Squamous Epith Cells 0-5 SEEN Urine Bacteria 1+ Urine Mucus 0 SEEN Radiography Diagnostic Testing: Clinical Impression(s) from Imaging Studies Abdomen/Pelvis CT 01/17/23 18:28 IMPRESSION: (NOT LISTED IN ORDER OF SIGNIFICANCE) Fatty liver. Mild hydronephrosis caused by proximal left 3.1 mm ureteral stone. Other findings as above. Electronically Signed: Tavon Pollack MD at 19:36 EDT Reading Location ID and State: [facility] / [place] , Service support , Discharge Plan Triage Chief Complaint: Flank Pain ED Provider: Tucker Bob Dx/Rx/DC Orders Clinical Impression: Kidney stone on left side, Hematuria, Nausea Instructions: ED Kidney Stone w/ Colic Prescriptions: New oxycodone-acetaminophen [oxycodone-acetaminophen] 5-325 mg tablet 1 tab PO Q6H PRN PRN (Reason: Pain) 3 Days Qty: 12 0RF ondansetron [ondansetron] 4 mg tablet,disintegrating 4 mg PO Q8H PRN PRN (Reason: Nausea) Qty: 10 0RF naproxen [Naprosyn] 500 mg tablet 500 mg PO BID PRN (Reason: pain) Qty: 20 0RF tamsulosin [Flomax] 0.4 mg capsule 0.4 mg PO DAILY Qty: 7 0RF No Action labetalol 200 mg tablet 200 mg PO TID omeprazole 40 mg capsule,delayed release(DR/EC) 40 mg PO BID amlodipine 10 MG tablet 10 mg PO DAILY ursodiol 250 mg tablet 250 mg PO BID Qty: 180 1RF Primary Care Provider: Vijay Godinez Referrals: Vijay Godinez MD [Primary Care Provider] - Nicole Dickson MD [Med Staff - Active Staff] - 3-5 Days Disposition Disposition: Home, Self Care What to do if you have Problems For any increased pain, shortness of breath, bleeding, nausea or vomiting, chestpain, or any unexpected problems, contact your Primary Care Provider. Call [facility] ([phone]) or report to the closest Emergency Room. Call 911 if necessary. 01/17/232002 <Electronically signed by Tucker Bob MD> Cosigner Signature (if applicable): CC: Dr. Vijay Godinez MD ~ Signed [facility] Work Phone: [phone]) 186-618905-31-2023 History of Present illness Narrative* Adrianna Fountain DO - 01/12/2023 8:18 AM EDT Images from the original note were not included. [facility] History and physical note * Elizabeth Dias APRN.ENVIRONMENTAL REMEDIATION ENGINEER - 01/11/2023 1:40 PM EDT Surgeon: Suzi Watkins DO Type of surgery: EGD under MAC Patient scheduled for surgery on 01/19/2023 . Surgery Location: [facility] Diagnosis: Preop examination (primary encounter diagnosis) THIS IS A VIRTUAL VISIT This is a virtual visit using creadst video visit. It required patient-provider interaction for themedical decision making as documented below. I have communicated my name and active licensure. The patient's identity and physical location wereverified at the time of this visit. Either the patient or their legal door to door sales representative has been informed of the risks and benefits of and alternatives to treatment through a remote evaluation and consents to proceed with the evaluation remotely. Ht 4' 11[Pt. reported[ (1.50m) Wt 180 lb (81.6kg) LMP 01/10/2023 BMI 36.34 kg/(m^2). Full H&P completed 01/06/2023 by Suzi Watkisn DO ( Epic>Office Visit) for idiopathic gastroparesis. Hx GERD,HTN managed with oral med. Hx migraine headache reports controlled, NAFLD. Pt. currently CP, SOB or is in any apparent distress. PAST MEDICAL HISTORY Diagnosis Date Abnormal Pap smear of cervix Acid reflux HTN (hypertension) Infertility management male factor Infertility, female male factor Nonalcoholic fatty liver disease 10/23/2022 PAST SURGICAL HISTORY Procedure Laterality Date HYSTEROSCOPY removal of polyp IVF RETRIEVAL ANY METHOD Social History Tobacco Use Smoking status: Never Smokeless tobacco: Never Vaping Use Vaping Use: Never used Substance Use Topics Alcohol use: Yes Comment: Social, not while Drug use: No amLODIPine (NORVASC) 10 mg tablet Take 1 tablet by mouth once daily. labetalol (TRANDATE) 200 mg tablet Take 1 tablet by mouth three times daily. (Patient taking differently: Take 200 mg by mouth twice daily.) omeprazole (PRILOSEC) 40 mg capsule Take 1 capsule by mouth twice daily before meals. ALLERGIES No Known Allergies COVID VACCINATION STATUS: Fully vaccinated PHYSICAL EXAMINATION: Alert and oriented, No acute distress, Healthy appearance Neck supple Per Pt palpation Breathing comfortably on room air, full chest excursion, no wheezing, self palpated radial pulse, regular when count outloud by patient No abdominal pain or tenderness Per Pt palpation Laboratory and Testing: Lab Value Units Date High Low HB 13.9 g/dL 10/26/2022 15.5 11.5 HCT 41.4 % 10/26/2022 46.0 36.0 WBC 7.19 k/uL 10/26/2022 11.00 3.70 PLT 252 k/uL 10/26/2022 400 150 NA 137 mmol/L 10/26/2022 144 136 K 4.2 mmol/L 10/26/2022 5.1 3.7 GLUC 112 mg/dL 10/26/2022 99 74 BUN 16 mg/dL 10/26/2022 21 7 CREAT 0.64 mg/dL 10/26/2022 0.96 0.58 PTSEC No results within date range. INR No results within date range. APTT No results within date range. ALT 43 U/L 10/26/2022 38 7 AST 35 U/L 10/26/2022 35 13 TBILI 0.4 mg/dL 10/26/2022 1.3 0.2 TSH 1.960 mIU/L 01/06/2023 4.200 0.270 Lab Value Units Date High Low HCGQT No results within date range. UHCG No results within date range. HCG, BODY* No results within date range. Lab Value Units Date High Low ABORHD No results within date range. ABSCREEN No results within date range. Hemoglobin A1C (%) Date Value 01/06/2023 5.0 08/28/2018 5.1 04/20/2017 5.2 10/14/2022 NM gastric emptying: IMPRESSION: DELAYED RATE OF GASTRIC EMPTYING OF SOLID MEAL. ANESTHESIOLOGY REVIEW: MOUTH OPENING/TMJ : Full jaw ROM MICROGNATHIA/OVERBITE: no MP SCORE: MP 3 UPPER LIP BITE TEST: Class II - Lower incisors can bite the upper lip below the albertina line DENTITION: Intact THYROMENTAL DIST: WNL SHORT NECK: Yes - short/thick secondary to obesity. NECK FLEX: Full ROM NECK EXTENSION: Full ROM INTUBATION HISTORY: No History of a difficult intubation ADVERSE ANESTHESIA EVENT: No history of adverse event. ANESTHETIC OPTIONS: Final anesthesia management options will be discussed on day of surgery. PAIN MANAGEMENT OPTIONS: Final pain management plan will be discussed on the day of surgery. OPTIMIZATION STATUS: Patient optimized for OR, ASA Class: 3 Elizabeth Dias APRN.CNP January 11, 2023 1:50 PM documented in this [facility] Instructions* Patient Instructions* Elizabeth Dias APRN.CNP - 01/11/2023 12:57 PM EDT PATIENT PREOPERATIVE INSTRUCTIONS Suzi Watkins DO has scheduled you for your procedure at this surgery center: [facility]: [phone] -- [place] [address]. Please read below carefully for your personalized instructions. Dietary Restrictions: - No solid food or liquds after midnight. Medications: Unless instructed differently below, stay on all of your prescription medications until your surgery. Approved medications to take the morning of surgery with a sip of water: amLODIPine (NORVASC), LABETALOL If you start any new medications after today's visit, please contact the surgeon's office. Blood Thinning Medications: - Stop NSAIDS (Ibuprofen, Advil, Aleve, Motrin, Celebrex, Mobic, etc.) 7 days before surgery, as directed by your surgeon. - Stop Aspirin 7 days before surgery, as directed by your surgeon. - Stop Vitamin E, ALL multi-vitamins, herbals and dietary supplements 7 days before surgery. - You may take Tylenol (Acetaminophen) or any of your pain medications that do not contain aspirin or NSAIDS as needed. Important Reminders: - Candy, mints, and tobacco products are NOT permitted the morning of surgery. - Hearing aids, dentures and glasses may be worn the morning of surgery. - NO jewelry, body piercings, makeup, hairpins or contacts are to be worn the day of surgery. If you develop symptoms such as a fever, cold, or flu, or have other changes to your health within TWO DAYS of scheduled surgery or the morning of surgery, please contact the surgery center above. Personal Belongings: -Please have photo ID and insurance cards. -If you do not have a copy of advance directives on file with us, please bring a copy with you on the day of surgery. - Leave ALL valuables and money at home or with family members. For Outpatient Procedures: - YOU MUST HAVE A RESPONSIBLE KOHINOOR OPERATOR TAKE YOU HOME. A VIROLOGY TEACHER OR MD PSYCHIATRY CANNOT BE MADE A RESPONSIBLE KOHINOOR OPERATOR. - We recommend that a responsible person stays with you overnight to take care of you. - You cannot stay in a hotel alone after outpatient surgery. You will not be permitted to have yoursurgery, if you do not have someone to take care of you. Arrival Time for Surgery: - The Surgery Center or hospital where you are having surgery will call the afternoon before surgery (or Tuesday for Tuesday surgery) with a scheduled arrival time. - If you have not heard by 4 pm, please contact the surgery center above. Please be aware that emergency situations arise, which may delay or change your surgical time. If this happens, we will notify you as soon as possible and regret any inconvenience. If you already have an Advance Directive, please fax a copy to [phone] or email to for it to be added to your chart. If you do not have an Advance Directive, you can find the appropriate form and more information at [email or web address]. We recommend that youcomplete the Advance Directive form found on the website and bring it with you the day of your surgery. It can be witnessed and scanned into your chart that day. documented in this encounter[facility] History of Present illness Narrative* Triny Davida, RD - 11/29/2022 2:30 PM EDT [facility] Nutrition Therapy: Virtual Consult - Initial Assessment I have communicated my name and active licensure. The patient s identity and physical location wereverified at the time of this visit. Either the patient or their legal door to door sales representative has been informed of the risks and benefits of -- and alternatives to -- treatment through a remote evaluation andconsents to proceed with the evaluation remotely. Nutrition Diagnosis: Behavioral-Environmental: Irregular eating pattern, related to, gastroparesis and work schedule, as evidenced by diet recall and failure to lose weight. RECOMMENDED MALNUTRITION DIAGNOSIS: NO MALNUTRITION IDENTIFIED NUTRITION CARE PLAN Nutrition Intervention 11/29/2022: Modify type and amount of food at meals and snacks - Breakfast: - Fairlife Core Powder shake - Avocado toast w/ egg - Smoothie - Lunch: Guyanese yogurt, cottage cheese (low fat), egg salad w/ crackers - Follow Healthy Plate Method at meal times: half plate of non-starchy vegetables, 1 cup or less ofwhole grain/starchy vegetable, palm size serving of lean protein - Increase water intake to at least 64 oz/day - set alarms to help - Start MVI - Choose 93% ground beef and turkey - Red meat no more than 1-2x/week Nutrition Monitoring & Evaluation: Weight, GI symptoms, labs Need for Follow up: PRN Patient presents for an initial nutrition consult with PMH of gastroparesis, NAFLD, GERD, HTN and class 2 obesity. Pt states she has been sedentary for a few years. She is trying to walk more with her (2 miles at the park). She also has treadmill and elliptical at home along with free weights and a weight bench. 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 She reports it is difficult to find energy. Diet recall indicates an irregular meal pattern with most calories consumed late at night in excess. 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 Resting Metabolic Rate: 1434 Malnutrition Screening Significant unintentional weight loss? No Eating less than 75% of usual intake for more than 2 weeks? No Potential Signs of Inflammation: no identifiable sources Education Materials Provided: Fat and Fiber Facts to Lower Cholesterol READINESS TO LEARN Cognitive ability: Alert and oriented Motivation to learn: Interested Family support: Unable to assess - Family not present Instruction provided to: Patient Patient learns best by: Multiple Methods Factors affecting learning: None Physical limitations affecting learning: None Referred by: Candelaria ISABEL Billing Type: Initial Assess/15 min 2 units SIGNATURE: Triny Higuera RD PATIENT NAME: Forest Nguyen DATE: 11/29/2022 TIME: 1:40 PM documented in this encounterOhio[facility] History of Present illness Narrative* Pat Bustamante APRN.ENVIRONMENTAL REMEDIATION ENGINEER - 11/23/2022 8:25 AM EDT Patient fasting for 3 hours:Yes Any implanted devices:No Possibility of :No Fibroscan was performed on November 23, 2022, by [place] Gordon LPN and results are interpreted by Pat Bustamante Diagnosis: Fatty liver Please refer to get images report for individual readings Number of readings: 10 IQR %: 7% E (kpa): 8.0 CAP: 327 Impression The reading was adequate. FS=8.0 kPA. The CAP score is 327 and corresponds to steatosis grade of S3. This reading corresponds: A 91% chance of stage 0-2 fibrosis A 9% chance of stage 3-4 fibrosis (advanced fibrosis) A 1.3% chance of stage 4 fibrosis (cirrhosis). Pat Bustamante, SECURITY CONSULTANT.ENVIRONMENTAL REMEDIATION ENGINEER NAFLD Fibroscan Fibrosis Risk <7 kPA = F0-F2 97%, F3+F4 3%, F4 <1% <10 kPA = F0-F2 91%, F3+F4 9%, F4 1.3% 10-15 kPA = F0-F2 56%, F3+F4 43%, F4 14% >15 kPA = F0-F2 26%, F3+F4 74%, F4 46% Grade CAP value up to 237 dB/M corresponds to S0 (< 10 % Fat) CAP value between (238 - 258 dB/M) corresponds to S1 (>/= 11 % Fat) CAP value between (259 - 289 dB/M) corresponds to S2 (>/= 33 % Fat) CAP value > 290dB/M corresponds to S3 (>/= 67 % Fat) stage 0 ( S0:< 10 % steatosis) stage 1 (>/= S1: 11%-33% steatosis) stage 2 (>/= S2: 34%-66% steatosis) stage 3 (>/= S3: > 66% steatosis) Reference Shiv Y, Eber Q, Chaney T, Meri J, Shiv H, Andrés T. Controlled attenuation parameter for assessment of hepatic steatosis grades: a diagnostic meta-analysis. Int J Clin Exp Med. 2015 May 15;8(10):48802-31.PMID: 33061036; PMCID: [id number]. Zeb Humphries, Quirino ENGLE, Tevin M, Audi F, Abner J, Frankie O, Umm F, Geo M, Colleen G, Mariam A, Rebecca E, Pilar L, Stephanie Peña, Alba A, Pepe U, Omari S, Bethany, Myesha V, Schaefer V, Jagruti M, Cortes JULES. Refining the Baveno elastography criteria for the definition of compensated advanced chronic liver disease. J Hepatol. 2020;74(5):5239-8643. doi: 10.1016/j.jhep.2020.11.050. Epub 2019Jul 23. PMID: 68070646. documented in this encounterOhiohealth [facility] Center04-11-2023 Instructions* Patient Instructions* Lydia Gaona PA-C - 11/23/2022 8:18 AM EDT Repeat blood work in 3 and 6 months Follow up with me in 6 months, can be virtual Twinrix (hepatitis A and B) vaccine today, repeat in 1 and 6 months Treatment of fatty liver is weight loss Mediterranean diet Increased cardiovascular exercise with goal >45 minutes 5 days weekly Avoid liver detox cleanse/supplements Call with any questions at [phone] documented in this encounterOhiohealth [facility] Center04-11-2023 History of Present illness Narrative* Lydia Gaona PA-C - 11/23/2022 8:13 AM EDT NAME: Forest Nguyen [facility] NO: [id number] REFERRING PHYSICIAN: Lydia Gaona PRESENTING COMPLAINT: Patient presents with: Established Patient: Nonalcoholic fatty liver disease, elevated liver enzymes HPI: Forest Nguyen is a 37 year old female with PMHx of NAFLD, gastroparesis, HTN, GAVE, GERD, migraines, here on follow up for NAFLD. Patient was last seen by myself virtually 10/23/22. At last visit: Found to have hepatic steatosis with kPA 14 on local US with elastography. Had mildly elevated ALT level with normal PLT count. Discussed pathophysiology of NAFLD vs MCKEON, along with metabolic syndrome risk factors and risk of progression to cirrhosis without intervention. On Ursodiol for bile induced gastritis but experiencing diarrhea, has plans to establish with GI. RECOMMENDATION: Fibroscan for staging-[facility] Repeat LFTs and fill in gaps in chronic liver dx panel, can be done locally Fasting lipid panel Hgb a1c UTD, repeat annually Weight loss benson, goal BMI <30 Mediterranean diet/increased cardiovascular exercise with goal >45 minutes 5 days weekly Tight control of metabolic syndrome essential, PCP to assist with management of metabolic syndrome risk factors Avoid liver detox cleanse/supplements Not to exceed 2,000 mg tylenol daily Check immunity for HAV/HBV and vaccinate if needed Interval hx: Chronic liver panel significant for elevated ALT 43 Elevated LDL 132 Needs HBV/HAV vaccination Normal PLT count Fibroscan today CAP 327 kPa 8.0 Has gastroparesis apt with Dr. 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 Remaining systems reviewed and are negative. REVIEW OF SYSTEMS GENERAL: No unexplained weight changes or fevers. HEENT: Negative for severe headaches. NECK: Negative for lumps, masses or pain. RESPIRATORY: Negative for coughing, wheezing or significant dyspnea. CARDIOVASCULAR: Negative for chest pain or heart palpitations. GASTROINTESTINAL: Negative for rectal bleeding or black tarry stools. GENITOURINARY: Not reviewed. MUSCULOSKELETAL: Negative for unexplained joint pains, dislocations or fractures. NEUROLOGIC: Negative for unexplained weakness or vertigo. SKIN: Negative for new lesions or rashes. ENDOCRINE: Negative for cold or heat intolerance . Current Outpatient Medications Medication Sig Dispense Refill ursodiol (MEGAN) 250 mg tablet Take 250 mg by mouth twice daily. amLODIPine (NORVASC) 10 mg tablet Take 1 tablet by mouth once daily. 90 tablet 1 labetalol (TRANDATE) 200 mg tablet Take 1 tablet by mouth three times daily. (Patient taking differently: Take 200 mg by mouth twice daily.) 90 tablet 1 omeprazole (PRILOSEC) 40 mg capsule Take 1 capsule by mouth twice daily before meals. 180 capsule 1 No current facility-administered medications for this visit. ALLERGIES No Known Allergies Social History Tobacco Use Smoking status: Never Smokeless tobacco: Never Vaping Use Vaping Use: Never used Substance Use Topics Alcohol use: Yes Comment: Social, not while Drug use: No PAST MEDICAL HISTORY Diagnosis Date Abnormal Pap smear of cervix Acid reflux HTN (hypertension) Infertility management male factor Infertility, female male factor Nonalcoholic fatty liver disease 10/23/2022 @SHX@ FAMILY HISTORY Problem Relation Age of Onset Hypertension Mother Breast Cancer Mother Hypertension Father No Known Problems Sister No [...] Paternal Uncle Coronary Artery Disease Paternal Uncle PHYSICAL EXAM BP 151/102 Pulse 88 Temp 97.4 Ht 4' 11 (1.50m) Wt 183 lb 6.4 oz (83.2kg) SpO2 99% LMP 06/14/2022 BMI 37.02 kg/(m^2). General Appearance: Well appearing, alert, in no acute distress, well-hydrated, well nourished. andObese Eyes: PERRLA, conjunctiva and sclera normal Oropharynx: covered by mask Lungs: breathing comfortably Heart: regular rate Abdomen: not distended Extremities: no cyanosis or edema Skin: no jaundice, no spider angiomas, no palmar erythema Neuro:alert, in no acute distress, no asterixis Recent Labs: Hemoglobin (g/dL) Date Value 10/26/2022 13.9 09/25/2021 14.4 Hematocrit (%) Date Value 10/26/2022 41.4 09/25/2021 45.1 WBC (k/uL) Date Value 10/26/2022 7.19 09/25/2021 6.89 Glucose (mg/dL) Date Value 10/26/2022 112 09/08/2021 102 Potassium (mmol/L) Date Value 10/26/2022 4.2 09/08/2021 4.6 Sodium (mmol/L) Date Value 10/26/2022 137 09/08/2021 139 Chloride (mmol/L) Date Value 10/26/2022 104 09/08/2021 105 CO2 (mmol/L) Date Value 10/26/2022 22 09/08/2021 24 Creatinine (mg/dL) Date Value 10/26/2022 0.64 09/08/2021 0.63 BUN (mg/dL) Date Value 10/26/2022 16 09/08/2021 16 Anion Gap (mmol/L) Date Value 10/26/2022 11 09/08/2021 10 Calcium (mg/dL) Date Value 09/08/2021 10.0 Calcium, Total (mg/dL) Date Value 10/26/2022 9.8 Albumin (g/dL) Date Value 10/26/2022 4.6 Bilirubin, Total (mg/dL) Date Value 10/26/2022 0.4 Bilirubin, Conjugated (mg/dL) Date Value 10/26/2022 <0.2 Alkaline Phosphatase (U/L) Date Value 10/26/2022 75 AST (U/L) Date Value 10/26/2022 35 ALT (U/L) Date Value 10/26/2022 43 (H) Protein, Total (g/dL) Date Value 10/26/2022 7.2 Computed MELD-Na score unavailable. Necessary lab results were not found in the last year. Computed MELD score unavailable. Necessary lab results were not found in the last year. Imaging: US abdomen 09/23/22: FINDINGS: Liver: The liver measures 16.5 cm. There is increased echogenicity consistent with fatty infiltration. The bile ducts are within normal limits. There is hepatic color flow. The direction of portal flow is hepatopetal. There is no demonstrated mass lesion. Gallbladder: Normal distended gallbladder. The gallbladder wall measures 1 mm. There is a negative sonographic Saravia''s sign. There is no pericholecystic fluid. There are no gallstones. Common Bile Duct (C.B.D.): The common bile duct measures 4 mm. Pancreas: Normal size of the head, body and tail of the pancreas. There is normal echogenicity of the pancreas. There is no demonstrated pancreatic mass or cyst. Right Kidney: Normal size of the right kidney. The right kidney measures 10.6 cm x 5.4 cm x 4.8 cm. Normal renal cortex. The right cortex measures 1.7 cm. There is no demonstrated renal mass or cyst. There is no right hydronephrosis. US/Abdomen Limited IMPRESSION: Diffuse fatty infiltration of the liver. Assessment IMPRESSION Forest Nguyen is a 37 year old female with PMHx of NAFLD, gastroparesis, HTN, GAVE, GERD, migraines, here on follow up for NAFLD. Fibroscan today suggests severe steatosis without concern for advanced fibrosis/cirrhosis. Discussed pathophysiology of NAFLD with metabolic syndrome risk factors,need for weight loss to prevent progression of fibrosis. Reviewed various non-invasive and invasiveweight loss options, she would like to increase her level of exercise prior to further intervention. PLAN Annual fibroscan, next 11/2023 Lfts every 3 months, next January 2023 Weight loss 10% of body weight Mediterranean diet Increase cardiovascular exercise weight goal >45 minutes 5 days weekly No alcohol ideal, limit to 1-3 drinks a week at most Tight control of metabolic syndrome risk factors essential, recommend annual fasting lipid panel/hgb a1c, PCP to assist with management/surveillance Okay to use tylenol, not to exceed 2,000 mg daily Can refer to nutrition/endocrine medical weight management if ever interested Follow up with Dr. Fountain as scheduled 1st Twinrix today, repeat in 1 and 6 months Follow up in 6 months, can be virtual. Please contact sooner if you have questions or problems develop. I spent a total of 35 minutes on the date of the service which included preparing to see the patient, [id number] patient care, completing clinical documentation, obtaining and/or reviewing separately obtained history, performing a medically appropriate examination, counseling and educating the pat ient/family/caregiver, ordering medications, tests, or procedures, communicating with other HCPs (not separately reported), and independently interpreting results (not separately reported). Lydia Gaona PA-C November 23, 2022 9:35 AM documented in this encounterOhiohealth [facility]03-16-2023 Miscellaneous Notes* Telephone Encounter - Edna Michaels - 10/28/2022 2:26 PM EDT Patient is scheduled with GP Team * Telephone Encounter - Edna Michaels - 10/20/2022 9:33 AM EST Left VM for patient to call office to schedule with GP Team * Telephone Encounter - Aleah Mejia - 10/18/2022 1:56 PM EST EGD and GES was sent and is in scanned documents for review. * Telephone Encounter - Adrianna Fountain DO - 10/18/2022 7:23 AM EST I do not see a EGD in the records, if it is negative then she is n EMPTIES candidate. Me surgery and EGG * Telephone Encounter - Edna Michaels - 10/15/2022 1:48 PM EST Review and advise * Telephone Encounter - Edna Michaels - 10/15/2022 1:48 PM EST ----- Message from Nicole Galicia sent at 10/15/2022 8:51 AM EST ----- Regarding: MILVIA // HANNA // CHERYL // GASTROPARESIS Forest Zenaida Nguyen is being referred to or the Gastroparesis clinic. Referring Physician: Dr. Joyner Has the patient had a Gastric Emptying Study? Yes Which facility or hospital was the Gastric Emptying Study done at (please list full name of hospital or facility)? [facility] If the patient had a gastric emptying study were the results abnormally delayed? Yes Has the patient had a Smart Pill? No Has the patient had Gastric Bypass? No Has the patient had a Gastric Sleeve? No Has the patient had a Margaret/Hiatal Hernia/Repair? No Has the patient had POP/Pyloroplasty? No Is the patient currently on TPN? No Does the patient have a G/J Tube?No Preferred phone number for contact: [phone] Send to GASTROPARESIS SCHEDULING POOL [[phone]] * Telephone Encounter - Aleah Jake [facility] - 10/15/2022 1:05 PM EST Pre- Appointment Assessment GI DX: Gastroparesis, GERD, gastritis Referring Physician: Allyssa DELONG / Sima Tatum MD Records are in: Care everywhere x Epic x Scanned Documents x Information received Yes No Percentage Retained Unknown 2 hr GES 4 hr GES x 26% T1/2 90 minute *Notes: Information Received Yes No Date Unknown Insurance Cards x Referral Letter x U/S of Abdomen x CT of Abdomen x EGD/ EGD with Botox x Colonoscopy x Labs x List of Meds x History and Physical Notes x Other Reports x *Notes: Has the patient had ? Yes No Date if known Unknown Smart Pill x Margaret/Fundoplication / Hiatal Hernia Repair x Gastric By Pass x Gastric Sleeve x POP/Pyloroplasty x Gastric Pacer x TPN x GJ Tube x *Notes: documented in this encounterOhiohealth [facility]03-11-2023 History of Present illness Narrative* Lydia Gaona PA-C - 10/23/2022 8:30 AM EST NEW VIRTUAL VISIT This is a virtual visit using HIPAA compliant video platform- Zoom. It required patient-provider interaction for the medical decision making as documented below. I have communicated my name and active licensure. The patient's identity and physical location wereverified at the time of this visit. Either the patient or their legal door to door sales representative has been informed of the risks and benefits of -- and alternatives to -- treatment through a remote evaluation andconsents to proceed with the evaluation remotely. I had a virtual visit with Ms. Nguyen today. Her local doctors have given her a diagnosis of NAFLD. HISTORY: CC: Patient presents with: Non Alcoholic Fatty Liver Disease HPI:: Ms. Nguyen is a 37 year old Female with past medical history of NAFLD, gastroparesis, HTN,GAVE, GERD, migraines, presenting today for NAFLD. Upon chart review, had RUQ US 09/23/22 showing hepatic steatosis and kPa 14 on elastography Labs 09/15/22: ASMA 6 AMA negative Celiac serologies negative PLT 298 Albumin 4.0 Alk phos 76, ALT 42, AST 27, TB 0.2 Hgb a1c 5.5 EGD 08/2022 showed small hiatal hernia, GAVE, bile reflux with bile gastritis Started on Ursodiol 250 mg BID, for bile acid gastritis OTC supplements/herbal meds: no Regular tylenol use: no Risk Factors for Liver Disease: 1. Blood transfusions before 1991: no 2. IVDA: No 3. Intranasal coccaine use: No 4. Tattoos: No 5. Service: No 6. High risk sexual behavior: No 7. Alcohol: Yes, once a month every 2 months. No DUIs 8. Obesity: yes 9. Hyperlipidemia: na 10. Prolonged exposure to hepatotoxic meds: No 11. Other autoimmune disorders No Metabolic Syndrome Risk factors: 2/5 1) Diabetes/ Abnormal FBS >100mg/dL:no 2) Hypertension : yes 3)Triglycerides more then 150 : na 4) HDL (<50 female and <40 male): na 5) Central obesity ( Waist >102 men and >88 female) - Body mass index is 35.45 kg/(m^2). Has gained weight during covid 180 pounds, 4'11 Family hx: denies hx of cirrhosis, liver cancer, uncle had colon cancer Surgical hx: no abdominal surgery Denies current issues with ascites, HE, hematemesis, hematochezia, confusion, dark urine, kierra colored stool, nausea, vomiting, weight loss, early satiety, bloating, dysphagia, odynophagia, change inbm. Remaining systems reviewed and are negative. Computed MELD-Na score unavailable. Necessary lab results were not found in the last year. Computed MELD score unavailable. Necessary lab results were not found in the last year. PAST MEDICAL HISTORY Diagnosis Date Abnormal Pap smear of cervix Acid reflux HTN (hypertension) Infertility management male factor Infertility, female male factor Nonalcoholic fatty liver disease 10/23/2022 PAST SURGICAL HISTORY Procedure Laterality Date HYSTEROSCOPY removal of polyp IVF RETRIEVAL ANY METHOD FAMILY HISTORY Problem Relation Age of Onset Hypertension Mother Breast Cancer Mother Hypertension Father No Known Problems Sister No [...] Never Smokeless tobacco: Never Vaping Use Vaping Use: Never used Substance Use Topics Alcohol use: Yes Comment: Social, not while Drug use: No Current Outpatient Medications Medication Sig Dispense Refill ursodiol (MEGAN) 250 mg tablet Take 250 mg by mouth twice daily. amLODIPine (NORVASC) 10 mg tablet Take 1 tablet by mouth once daily. 90 tablet 1 labetalol (TRANDATE) 200 mg tablet Take 1 tablet by mouth three times daily. 90 tablet 1 omeprazole (PRILOSEC) 40 mg capsule Take 1 capsule by mouth twice daily before meals. 180 capsule 1 No current facility-administered medications for this visit. ALLERGIES No Known Allergies REVIEW OF SYSTEMS: PAIN ASSESSMENT: Negative for pain, history of chronic pain, or current treatment for a chronic pain condition. GENERAL: No weight loss, malaise or fevers RESPIRATORY: Negative for cough, hemoptysis, wheezing, COPD, dyspnea or shortness of breath CARDIOVASCULAR: Negative for chest pain, leg swelling, CHF or palpitations GI: +diarrhea MUSCULOSKELETAL: Negative for joint pain or swelling, back pain or muscle pain SKIN: Negative for lesions, rash, and itching ENDOCRINE: Negative for cold or heat intolerance, polyuria, polydipsia and goiter NEURO: Not reviewed PHYSICAL FINDINGS OF NOTE: Patient reported weight 180 lbs General - Normal, healthy, cooperative, in no acute distress Able to interact verbally by video conference Psych - ORIENTATION: normal to time place, person and situation Mood/Affect: AFFECT AND MOOD: Normal Head/Neuro - Normal size and shape Facial appearance normal Pulmonary - respiratory effort normal Cardiovascular - patient describes extremities normal and warm Abdominal - Not performed Skin - abnormal lesions not visualized Motor - patient seen sitting with Normal appearing strength and coordination REVIEWED ITEMS US abdomen 09/23/22: FINDINGS: Liver: The liver measures 16.5 cm. There is increased echogenicity consistent with fatty infiltration. The bile ducts are within normal limits. There is hepatic color flow. The direction of portal flow is hepatopetal. There is no demonstrated mass lesion. Gallbladder: Normal distended gallbladder. The gallbladder wall measures 1 mm. There is a negative sonographic Saravia''s sign. There is no pericholecystic fluid. There are no gallstones. Common Bile Duct (C.B.D.): The common bile duct measures 4 mm. Pancreas: Normal size of the head, body and tail of the pancreas. There is normal echogenicity of the pancreas. There is no demonstrated pancreatic mass or cyst. Right Kidney: Normal size of the right kidney. The right kidney measures 10.6 cm x 5.4 cm x 4.8 cm. Normal renal cortex. The right cortex measures 1.7 cm. There is no demonstrated renal mass or cyst. There is no right hydronephrosis. US/Abdomen Limited IMPRESSION: Diffuse fatty infiltration of the liver. IMPRESSION Ms. Nguyen is a 37 year old Female with past medical history of NAFLD, gastroparesis, HTN, GAVE,GERD, migraines, presenting today for NAFLD. Found to have hepatic steatosis with kPA 14 on local US with elastography. Had mildly elevated ALT level with normal PLT count. Discussed pathophysiology of NAFLD vs MCKEON, along with metabolic syndrome risk factors and risk of progression to cirrhosis without intervention. On Ursodiol for bile induced gastritis but experiencing diarrhea, has plans to establish with GI. RECOMMENDATION: Fibroscan for staging-[facility] Repeat LFTs and fill in gaps in chronic liver dx panel, can be done locally Fasting lipid panel Hgb a1c UTD, repeat annually Weight loss benson, goal BMI <30 Mediterranean diet/increased cardiovascular exercise with goal >45 minutes 5 days weekly Tight control of metabolic syndrome essential, PCP to assist with management of metabolic syndrome risk factors Avoid liver detox cleanse/supplements Not to exceed 2,000 mg tylenol daily Check immunity for HAV/HBV and vaccinate if needed Follow up with me same day as fibroscan at [facility] I spent a total of 40 minutes on the date of the service which included preparing to see the patient, [id number] patient care, completing clinical documentation, obtaining and/or reviewing separately obtained history, performing a medically appropriate examination, counseling and educating the pat ient/family/caregiver, ordering medications, tests, or procedures, communicating with other HCPs (not separately reported), and independently interpreting results (not separately reported). Lydia Gaona PA-C October 23, 2022 8:55 AM ASSESSMENT/PLAN: 1. Nonalcoholic fatty liver disease - ICD9: 571.8, ICD10: K76.0 (primary diagnosis) - DDI VIBRATION CONTROLLED TRANSIENT ELASTOGRAPHY (VCTE) - LIPID PANEL BASIC - BASIC METABOLIC PNL - CBC + DIFF - ALPHA 1 ANTITRYPSIN PHENOTYPE - CERULOPLASMIN BLD - FERRITIN BLD - HEP REMOTE PANEL BL - HEPATIC FUNCTION PNL - IRON + TIBC - ALPHA FETOPROTEIN BL - ZEB BY IFA WITH REFLEX - SMOOTH MUSCLE AB SCR - MITOCHONDRIAL M2 IGG SERUM - HEPATITIS A ANTIBODY, IGG 2. Elevated liver enzymes - ICD9: 790.5, ICD10: R74.8 - DDI VIBRATION CONTROLLED TRANSIENT ELASTOGRAPHY (VCTE) - LIPID PANEL BASIC - BASIC METABOLIC PNL - CBC + DIFF - ALPHA 1 ANTITRYPSIN PHENOTYPE - CERULOPLASMIN BLD - FERRITIN BLD - HEP REMOTE PANEL BL - HEPATIC FUNCTION PNL - IRON + TIBC - ALPHA FETOPROTEIN BL - ZEB BY IFA WITH REFLEX - SMOOTH MUSCLE AB SCR - MITOCHONDRIAL M2 IGG SERUM - HEPATITIS A ANTIBODY, IGG Lydia Gaona PA-C documented in this encounterOhiohealth [facility]03-02-2023 History of Present illness Narrative* Matilde Wright, RT(R) - 10/14/2022 7:30 AM EST RADIOLOGY SERVICE PROGRESS NOTE SERVICE DATE: 10/14/2022 SERVICE TIME: 07:53 AM PATIENT IDENTITY VERIFICATION COMPLETED USING TWO (2) STANDARD IDENTIFIERS: Name and Date of confirmed by patient verbally FALL SCREENING: Has the patient had 2 falls in the last year or 1 fall with injury or currently using an Ambulatory Assistive Device (Walker, Cane, Wheelchair, Crutches, etc.)? No PATIENT GENDER DATA: .female : No status: No ALLERGIES: Reviewed and unchanged MEDICATIONS REVIEWED: No PATIENT RELEVANT IMPLANT DATA REVIEWED: Not Applicable CREATININE: Creatinine Date Value Ref Range Status 09/08/2021 0.63 0.58 - 0.96 mg/dL Final 02/01/2020 0.53 (L) 0.58 - 0.96 mg/dL Final 08/28/2018 0.56 (L) 0.58 - 0.96 mg/dL Final eGFR-All Other Races Date Value Ref Range Status 09/08/2021 >60 . Final Comment: eGFR (Estimated GFR) Units of measure: mL/min/1.73 meters squared eGFR is derived from the reexpressed MDRD Study equation using the following parameters: serum creatinine, age, gender and race. The creatinine assay has been calibrated to be traceable to IDMS. An eGFR <60 mL/min/1.73m2 for >3 months is consistent with chronic kidney disease. Refer to KDOQI guidelines for clinical interpretation. In patients with unstable renal function, e.g. those with acute kidney injury, the eGFR may not accurately reflect actual GFR. Note: On 10/10/2021, the eGFR calculation will be updated to the NKF-ASN Task Force recommended 2020 CKD-EPI creatinine equation which does not include a race variable. For more information or to access a 2020 CKD-EPI calculator, visit the National Kidney [employer] website at kidney.org/professionals/kdoqi/gfr_calculator. eGFR- Date Value Ref Range Status 09/08/2021 >60 Final P.O.C.T. RESULTS: N/A October 14, [address] PERFORMED: No IV SITE: NM only - not applicable, oral or physician administered agents given to patient POST EXAM PIV STATUS: Not applicable PROCEDURE TYPE: NM GET: 1.1 mCi Tc99m SULFUR COLLOID was administered orally via 4 ounces of Egg Beaters,1 piece of toast, 1/2 ounce of jelly with 1 ounces of water orally ADMINISTRATION TIME: 08:00 PATIENT DISCHARGED TO: Ambulatory patient, left [place] department area. A Diagnostic radioactive procedure has taken place, with no further precautions necessary other than routine body substance precautions. More information regarding radiation safety can be found usingthis link: [email or web address] 20Diagnostic%20Nuclear%20Medicine%20Procedures.pdf SIGNATURE: RT Marcelle(R) PATIENT NAME: Forest Nguyen DATE: October 14, 2022 TIME: 12:15 PM PAGER/CONTACT #: documented in this [facility]01-03-2023 Miscellaneous Notes* Telephone Encounter - Ashish Luna LPN - 08/17/2022 1:48 PM EST Patient phones requesting refills as follows: Requested Prescriptions Pending Prescriptions Disp Refills amLODIPine (NORVASC) 10 mg tablet 90 tablet 1 Sig: Take 1 tablet by mouth once daily. ULYSSES 09/24/21 NOV no upcoming appt Please review and advise. Ashish Luna LPN [facility] Miscellaneous Notes* Telephone Encounter - Ashish Luna LPN - 03/22/2022 6:39 PM EDT Patient phones requesting refills as follows: Pending Prescriptions Disp Refills LABETALOL 200 MG TABLET 90 tablet 1 Sig: Take 1 tablet by mouth three times daily. HARVEY: No AMLODIPINE 10 MG TABLET 90 tablet 1 Sig: Take 1 tablet by mouth once daily. HARVEY: No ULYSSES 09/24/21 NOV no upcoming appt Please review and advise. Ashish Luna LPN documented in this [facility]05-13-2022 Miscellaneous Notes* Telephone Encounter - Zenaida Stacy PA-C - 12/25/2021 5:15 AM EDT The following approved medication requests have been transmitted electronically. Signed Prescriptions Disp Refills omeprazole (PRILOSEC) 40 mg capsule 180 capsule 1 Sig: Take 1 capsule by mouth twice daily before meals. See myc message Zenaida Stacy PA-C documented in this [facility]22 NoteHNO ID: [id number] Author: RT Britt(R) Service: Radiology Author Type: Technologist Type: Progress Notes Filed: 10/15/2021 8:57 AM Note Text: Radiology Service Progress Note PATIENT NAME: Forest Nguyen DATE OF SERVICE: October 15, 2021 TIME: 8:55 AM PATIENT IDENTITY VERIFICATION COMPLETED USING TWO (2) IDENTIFIERS: Name and Date of confirmed by patient verbally. FALL SCREENING: Has the patient had 2 falls in the last year or 1 fall with injury or currently using an Ambulatory Assistive Device (Walker, Cane, Wheelchair, Crutches, etc.)? No PATIENT GENDER DATA: Female. status: : No status: NO. PATIENT RELEVANT IMPLANT DATA REVIEWED: Not Applicable RADIOLOGY DEPARTMENT: General X-ray: Exam(s) Completed: GI/ Procedure(s): Esophogram with barium contrast PERIPHERAL IV DATA: Not applicable SIGNED BY: RT Britt(R) October 15, 2021 8:55 [facility]uther[facility] [id number] History of Past illness Narrative * Problem Noted Date Resolved Date Positive GBS test 03/02/2019 04/04/2019 resulting from ass isted reproductive technology, antepartum 08/31/2018 04/04/2019 Overview: 08/31/2018Patient and have been trying to conceive for the past 6 years.Patient had seen ANABELLA and this is IVF . She is 10w3d and has nuchal scheduled at [place] location. She wants to change location of nuchal to [place]. TKRN Pre-existing essential hyper tension complicating , unspecified trimester 08/31/2018 04/04/2019 Overview: 02/09/19 Weekly NST's, had growth US at 33 wks for S<D and to have repeat in 4 wks, delivery at 39 wks. SW 08/31/2018Patient has a history of hypertension diagnosed 01/2017. On Labetalol, most recently prescribed by Dr Reid but has been prescribed by Dr South. GENE. Family history of congenital heart defect 201804/04/2019 Overview: 08/31/2018Maternal aunt born with hole in heart. Surgical correction done. TKRN Encounter for in vitro fertilization 02/04/2017 04/04/2019 documented as of this encounter (statuses as of 12/25/2021) [facility] History of Past illness Narrative* Problem Noted Date Resolved Date Positive GBS test 03/02/2019 04/04/2019 resulting from ass isted reproductive technology, antepartum 08/31/2018 04/04/2019 Overview: 08/31/2018Patient and have been trying to conceive for the past 6 years.Patient had seen ANABELLA and this is IVF . She is 10w3d and has nuchal scheduled at [facility]. She wants to change location of nuchal to [place]. TKRN Pre-existing essential hyper tension complicating , unspecified trimester 08/31/2018 04/04/2019 Overview: 02/09/19 Weekly NST's, had growth US at 33 wks for S<D and to have repeat in 4 wks, delivery at 39 wks. SW 08/31/2018Patient has a history of hypertension diagnosed 01/2017. On Labetalol, most recently prescribed by Dr Reid but has been prescribed by Dr South. GENE. Family history of congenital heart defect 201804/04/2019 Overview: 08/31/2018Maternal aunt born with hole in heart. Surgical correction done. TKRN Encounter for in vitro fertilization 02/04/2017 04/04/2019 documented as of this encounter (statuses as of 03/26/2022) [facility] History of Past illness Narrative* Problem Noted Date Resolved Date Positive GBS test 03/02/2019 04/04/2019 resulting from ass isted reproductive technology, antepartum 08/31/2018 04/04/2019 Overview: 08/31/2018Patient and have been trying to conceive for the past 6 years.Patient had seen ANABELLA and this is IVF . She is 10w3d and has nuchal scheduled at [place] location. She wants to change location of nuchal to [place]. TKRN Pre-existing essential hyper tension complicating , unspecified trimester 08/31/2018 04/04/2019 Overview: 02/09/19 Weekly NST's, had growth US at 33 wks for S<D and to have repeat in 4 wks, delivery at 39 wks. SW 08/31/2018Patient has a history of hypertension diagnosed 01/2017. On Labetalol, most recently prescribed by Dr Reid but has been prescribed by Dr South. TKRN. Family history of congenital heart defect 201804/04/2019 Overview: 08/31/2018Maternal aunt born with hole in heart. Surgical correction done. TKRN Encounter for in vitro fertilization 02/04/2017 04/04/2019 documented as of this encounter (statuses as of 08/19/2022) [facility] of Past illness Narrative* Problem Noted Date Resolved Date Positive GBS test 03/02/2019 04/04/2019 resulting from ass isted reproductive technology, antepartum 08/31/2018 04/04/2019 Overview: 08/31/2018Patient and have been trying to conceive for the past 6 years.Patient had seen ANABELLA and this is IVF . She is 10w3d and has nuchal scheduled at [place] location. She wants to change location of nuchal to [place]. TKRN Pre-existing essential hyper tension complicating , unspecified trimester 08/31/2018 04/04/2019 Overview: 02/09/19 Weekly NST's, had growth US at 33 wks for S<D and to have repeat in 4 wks, delivery at 39 wks. SW 08/31/2018Patient has a history of hypertension diagnosed 01/2017. On Labetalol, most recently prescribed by Dr Reid but has been prescribed by Dr South. TKRN. Family history of congenital heart defect 201804/04/2019 Overview: 08/31/2018Maternal aunt born with hole in heart. Surgical correction done. TKRN Encounter for in vitro fertilization 02/04/2017 04/04/2019 documented as of this encounter (statuses as of 10/23/2022) [facility] of Past illness Narrative* Problem Noted Date Resolved Date Positive GBS test 03/02/2019 04/04/2019 resulting from ass isted reproductive technology, antepartum 08/31/2018 04/04/2019 Overview: 08/31/2018Patient and have been trying to conceive for the past 6 years.Patient had seen ANABELLA and this is IVF . She is 10w3d and has nuchal scheduled at [facility]. She wants to change location of nuchal to [place]. TKRN Pre-existing essential hyper tension complicating , unspecified trimester 08/31/2018 04/04/2019 Overview: 02/09/19 Weekly NST's, had growth US at 33 wks for S<D and to have repeat in 4 wks, delivery at 39 wks. SW 08/31/2018Patient has a history of hypertension diagnosed 01/2017. On Labetalol, most recently prescribed by Dr Reid but has been prescribed by Dr South. TKRSarkis. Family history of congenital heart defect 201804/04/2019 Overview: 08/31/2018Maternal aunt born with hole in heart. Surgical correction done. TKRN Encounter for in vitro fertilization 02/04/2017 04/04/2019 documented as of this encounter (statuses as of 11/23/2022) [facility] of Past illness Narrative* Problem Noted Date Resolved Date Positive GBS test 03/02/2019 04/04/2019 resulting from ass isted reproductive technology, antepartum 08/31/2018 04/04/2019 Overview: 08/31/2018Patient and have been trying to conceive for the past 6 years.Patient had seen ANABELLA and this is IVF . She is 10w3d and has nuchal scheduled at [place] location. She wants to change location of nuchal to [place]. TKRN Pre-existing essential hyper tension complicating , unspecified trimester 08/31/2018 04/04/2019 Overview: 02/09/19 Weekly NST's, had growth US at 33 wks for S<D and to have repeat in 4 wks, delivery at 39 wks. SW 08/31/2018Patient has a history of hypertension diagnosed 01/2017. On Labetalol, most recently prescribed by Dr Reid but has been prescribed by Dr South. TKRN. Family history of congenital heart defect 201804/04/2019 Overview: 08/31/2018Maternal aunt born with hole in heart. Surgical correction done. TKRN Encounter for in vitro fertilization 02/04/2017 04/04/2019 documented as of this encounter (statuses as of 11/23/2022) [facility] of Past illness Narrative* Problem Noted Date Resolved Date Positive GBS test 03/02/2019 04/04/2019 resulting from ass isted reproductive technology, antepartum 08/31/2018 04/04/2019 Overview: 08/31/2018Patient and have been trying to conceive for the past 6 years.Patient had seen ANABELLA and this is IVF . She is 10w3d and has nuchal scheduled at [place] location. She wants to change location of nuchal to [place]. TKRN Pre-existing essential hyper tension complicating , unspecified trimester 08/31/2018 04/04/2019 Overview: 02/09/19 Weekly NST's, had growth US at 33 wks for S<D and to have repeat in 4 wks, delivery at 39 wks. SW 08/31/2018Patient has a history of hypertension diagnosed 01/2017. On Labetalol, most recently prescribed by Dr Reid but has been prescribed by Dr South. TKRN. Family history of congenital heart defect 201804/04/2019 Overview: 08/31/2018Maternal aunt born with hole in heart. Surgical correction done. TKRN Encounter for in vitro fertilization 02/04/2017 04/04/2019 documented as of this encounter (statuses as of 11/26/2022) [facility] of Past illness Narrative* Problem Noted Date Resolved Date Positive GBS test 03/02/2019 04/04/2019 resulting from ass isted reproductive technology, antepartum 08/31/2018 04/04/2019 Overview: 08/31/2018Patient and have been trying to conceive for the past 6 years.Patient had seen ANABELLA and this is IVF . She is 10w3d and has nuchal scheduled at [facility]. She wants to change location of nuchal to [place]. TKRN Pre-existing essential hyper tension complicating , unspecified trimester 08/31/2018 04/04/2019 Overview: 02/09/19 Weekly NST's, had growth US at 33 wks for S<D and to have repeat in 4 wks, delivery at 39 wks. SW 08/31/2018Patient has a history of hypertension diagnosed 01/2017. On Labetalol, most recently prescribed by Dr Reid but has been prescribed by Dr South. TKRSarkis. Family history of congenital heart defect 201804/04/2019 Overview: 08/31/2018Maternal aunt born with hole in heart. Surgical correction done. TKRN Encounter for in vitro fertilization 02/04/2017 04/04/2019 documented as of this encounter (statuses as of 12/01/2022) [facility] of Past illness Narrative* Problem Noted Date Resolved Date Positive GBS test 03/02/2019 04/04/2019 resulting from ass isted reproductive technology, antepartum 08/31/2018 04/04/2019 Overview: 08/31/2018Patient and have been trying to conceive for the past 6 years.Patient had seen ANABELLA and this is IVF . She is 10w3d and has nuchal scheduled at [place] location. She wants to change location of nuchal to [place]. TKRN Pre-existing essential hyper tension complicating , unspecified trimester 08/31/2018 04/04/2019 Overview: 02/09/19 Weekly NST's, had growth US at 33 wks for S<D and to have repeat in 4 wks, delivery at 39 wks. SW 08/31/2018Patient has a history of hypertension diagnosed 01/2017. On Labetalol, most recently prescribed by Dr Reid but has been prescribed by Dr South. TKRN. Family history of congenital heart defect 201804/04/2019 Overview: 08/31/2018Maternal aunt born with hole in heart. Surgical correction done. TKRN Encounter for in vitro fertilization 02/04/2017 04/04/2019 documented as of this encounter (statuses as of 12/07/2022) [facility] of Past illness Narrative* Problem Noted Date Resolved Date Positive GBS test 03/02/2019 04/04/2019 resulting from ass isted reproductive technology, antepartum 08/31/2018 04/04/2019 Overview: 08/31/2018Patient and have been trying to conceive for the past 6 years.Patient had seen ANABELLA and this is IVF . She is 10w3d and has nuchal scheduled at [place] location. She wants to change location of n[place]al to [place]. TKRN Pre-existing essential hyper tension complicating , unspecified trimester 08/31/2018 04/04/2019 Overview: 02/09/19 Weekly NST's, had growth US at 33 wks for S<D and to have repeat in 4 wks, delivery at 39 wks. SW 08/31/2018Patient has a history of hypertension diagnosed 01/2017. On Labetalol, most recently prescribed by Dr Reid but has been prescribed by Dr South. TKRSarkis. Family history of congenital heart defect 201804/04/2019 Overview: 08/31/2018Maternal aunt born with hole in heart. Surgical correction done. TKRN Encounter for in vitro fertilization 02/04/2017 04/04/2019 documented as of this encounter (statuses as of 01/12/2023) [facility] of Past illness Narrative* Problem Noted Date Resolved Date Positive GBS test 03/02/2019 04/04/2019 resulting from ass isted reproductive technology, antepartum 08/31/2018 04/04/2019 Overview: 08/31/2018Patient and have been trying to conceive for the past 6 years.Patient had seen ANABELLA and this is IVF . She is 10w3d and has nuchal scheduled at [place] location. She wants to change location of nuchal to [place]. TKRN Pre-existing essential hyper tension complicating , unspecified trimester 08/31/2018 04/04/2019 Overview: 02/09/19 Weekly NST's, had growth US at 33 wks for S<D and to have repeat in 4 wks, delivery at 39 wks. SW 08/31/2018Patient has a history of hypertension diagnosed 01/2017. On Labetalol, most recently prescribed by Dr Reid but has been prescribed by Dr South. GENE. Family history of congenital heart defect 201804/04/2019 Overview: 08/31/2018Maternal aunt born with hole in heart. Surgical correction done. TKRN Encounter for in vitro fertilization 02/04/2017 04/04/2019 documented as of this encounter (statuses as of 01/12/2023) [facility] of Past illness Narrative* Problem Noted Date Resolved Date Positive GBS test 03/02/2019 04/04/2019 resulting from ass isted reproductive technology, antepartum 08/31/2018 04/04/2019 Overview: 08/31/2018Patient and have been trying to conceive for the past 6 years.Patient had seen ANABELLA and this is IVF . She is 10w3d and has nuchal scheduled at [place] location. She wants to change location of nuchal to [place]. TKRN Pre-existing essential hyper tension complicating , unspecified trimester 08/31/2018 04/04/2019 Overview: 02/09/19 Weekly NST's, had growth US at 33 wks for S<D and to have repeat in 4 wks, delivery at 39 wks. SW 08/31/2018Patient has a history of hypertension diagnosed 01/2017. On Labetalol, most recently prescribed by Dr Reid but has been prescribed by Dr South. GENE. Family history of congenital heart defect 201804/04/2019 Overview: 08/31/2018Maternal aunt born with hole in heart. Surgical correction done. TKRN Encounter for in vitro fertilization 02/04/2017 04/04/2019 documented as of this encounter (statuses as of 01/18/2023) [facility] of [facility] illness Narrative* Problem Noted Date Resolved Date Positive GBS test 03/02/2019 04/04/2019 resulting from ass isted reproductive technology, antepartum 08/31/2018 04/04/2019 Overview: 08/31/2018Patient and have been trying to conceive for the past 6 years.Patient had seen ANABELLA and this is IVF . She is 10w3d and has nuchal scheduled at [place] location. She wants to change location of n[place]al to [place]. TKRN Pre-existing essential hyper tension complicating , unspecified trimester 08/31/2018 04/04/2019 Overview: 02/09/19 Weekly NST's, had growth US at 33 wks for S<D and to have repeat in 4 wks, delivery at 39 wks. 08/31/2018Patient has a history of hypertension diagnosed 01/2017. On Labetalol, most recently prescribed by Dr Reid but has been prescribed by Dr South. GENE. Family history of congenital heart defect 201804/04/2019 Overview: 08/31/2018Maternal aunt born with hole in heart. Surgical correction done. TKRN Encounter for in vitro fertilization 02/04/2017 04/04/2019 documented as of this encounter (statuses as of 02/04/2023) [facility] of Past illness Narrative* Problem Noted Date Resolved Date Positive GBS test 03/02/2019 04/04/2019 resulting from ass isted reproductive technology, antepartum 08/31/2018 04/04/2019 Overview: 08/31/2018Patient and have been trying to conceive for the past 6 years.Patient had seen ANABELLA and this is IVF . She is 10w3d and has nuchal scheduled at [place] location. She wants to change location of nuchal to [place]. TKRN Pre-existing essential hyper tension complicating , unspecified trimester 08/31/2018 04/04/2019 Overview: 02/09/19 Weekly NST's, had growth US at 33 wks for S<D and to have repeat in 4 wks, delivery at 39 wks. SW 08/31/2018Patient has a history of hypertension diagnosed 01/2017. On Labetalol, most recently prescribed by Dr Reid but has been prescribed by Dr South. GENE. Family history of congenital heart defect 201804/04/2019 Overview: 08/31/2018Maternal aunt born with hole in heart. Surgical correction done. TKRN Encounter for in vitro fertilization 02/04/2017 04/04/2019 documented as of this encounter (statuses as of 02/10/2023) [facility] of Past illness Narrative* Problem Noted Date Resolved Date Positive GBS test 03/02/2019 04/04/2019 resulting from ass isted reproductive technology, antepartum 08/31/2018 04/04/2019 Overview: 08/31/2018Patient and have been trying to conceive for the past 6 years.Patient had seen ANABELLA and this is IVF . She is 10w3d and has nuchal scheduled at [place] location. She wants to change location of nuchal to [place]. TKRN Pre-existing essential hyper tension complicating , unspecified trimester 08/31/2018 04/04/2019 Overview: 02/09/19 Weekly NST's, had growth US at 33 wks for S<D and to have repeat in 4 wks, delivery at 39 wks. SW 08/31/2018Patient has a history of hypertension diagnosed 01/2017. On Labetalol, most recently prescribed by Dr Reid but has been prescribed by Dr South. GENE. Family history of congenital heart defect 201804/04/2019 Overview: 08/31/2018Maternal aunt born with hole in heart. Surgical correction done. TKRN Encounter for in vitro fertilization 02/04/2017 04/04/2019 documented as of this encounter (statuses as of 02/12/2023) [facility] of Past illness Narrative* Problem Noted Date Diagnosed Date Resolved Date Positive GBS test 03/02/2019 04/04/2019 resulting from ass isted reproductive technology, antepartum 08/31/201803/16 Overview: 08/31/2018Patient and have been trying to conceive for the past 6 years.Patient had seen ANABELLA and this is IVF . She is 10w3d and has nuchal scheduled at [place] location. She wants to change location of n[place]al to [place]. TKRN Pre-existing essential hyper tension complicating , unspecified trimester 08/31/2018 04/04/2019 Overview: 02/09/19 Weekly NST's, had growth US at 33 wks for S<D and to have repeat in 4 wks, delivery at 39 wks. 08/31/2018Patient has a history of hypertension diagnosed 01/2017. On Labetalol, most recently prescribed by Dr Reid but has been prescribed by Dr Brannon. TKRN. Family history of congenital heart defect 08/31/2018 04/04/2019 Overview: 08/31/2018Maternal aunt born with hole in heart. Surgical correction done. TKRN Encounter for in vitro fertilization 02/04/2017 04/04/2019 documented as of this encounter (statuses as of 02/25/2023) [facility] of Past illness Narrative* Problem Noted Date Diagnosed Date Resolved Date Positive GBS test 03/02/2019 04/04/2019 resulting from ass isted reproductive technology, antepartum 08/31/201803/16 Overview: 08/31/2018Patient and have been trying to conceive for the past 6 years.Patient had seen ANABELLA and this is IVF . She is 10w3d and has nuchal scheduled at [facility]. She wants to change location of nuchal to [place]. TKRN Pre-existing essential hyper tension complicating , unspecified trimester 08/31/2018 04/04/2019 Overview: 02/09/19 Weekly NST's, had growth US at 33 wks for S<D and to have repeat in 4 wks, delivery at 39 wks. SW 08/31/2018Patient has a history of hypertension diagnosed 01/2017. On Labetalol, most recently prescribed by Dr Reid but has been prescribed by Dr South. TKRN. Family history of congenital heart defect 08/31/2018 04/04/2019 Overview: 08/31/2018Maternal aunt born with hole in heart. Surgical correction done. TKRN Encounter for in vitro fertilization 02/04/2017 04/04/2019 documented as of this encounter (statuses as of 05/28/2023) [facility] of Past illness Narrative* Problem Noted Date Diagnosed Date Resolved Date Positive GBS test 03/02/2019 04/04/2019 resulting from ass isted reproductive technology, antepartum 08/31/201803/16 Overview: 08/31/2018Patient and have been trying to conceive for the past 6 years.Patient had seen ANABELLA and this is IVF . She is 10w3d and has nuchal scheduled at [place] location. She wants to change location of nuchal to [place]. TKRN Pre-existing essential hyper tension complicating , unspecified trimester 08/31/2018 04/04/2019 Overview: 02/09/19 Weekly NST's, had growth US at 33 wks for S<D and to have repeat in 4 wks, delivery at 39 wks. SW 08/31/2018Patient has a history of hypertension diagnosed 01/2017. On Labetalol, most recently prescribed by Dr Reid but has been prescribed by Dr South. GENE. Family history of congenital heart defect 08/31/2018 04/04/2019 Overview: 08/31/2018Maternal aunt born with hole in heart. Surgical correction done. TKRN Encounter for in vitro fertilization 02/04/2017 04/04/2019 documented as of this encounter (statuses as of 06/19/2023) [facility] of Past illness Narrative* Problem Noted Date Diagnosed Date Resolved Date Positive GBS test 03/02/2019 04/04/2019 resulting from ass isted reproductive technology, antepartum 08/31/201803/16 Overview: 08/31/2018Patient and have been trying to conceive for the past 6 years.Patient had seen ANABELLA and this is IVF . She is 10w3d and has nuchal scheduled at [place] location. She wants to change location of nuchal to [place]. TKRN Pre-existing essential hyper tension complicating , unspecified trimester 08/31/2018 04/04/2019 Overview: 02/09/19 Weekly NST's, had growth US at 33 wks for S<D and to have repeat in 4 wks, delivery at 39 wks. SW 08/31/2018Patient has a history of hypertension diagnosed 01/2017. On Labetalol, most recently prescribed by Dr Reid but has been prescribed by Dr South. TKRN. Family history of congenital heart defect 08/31/2018 04/04/2019 Overview: 08/31/2018Maternal aunt born with hole in heart. Surgical correction done. TKRN Encounter for in vitro fertilization 02/04/2017 04/04/2019 documented as of this encounter (statuses as of 11/30/2023) [facility] Diagnosis Hypertension, essential Unspecified essential hypertension [facility] Diagnosis Onset Date Resolution Status GERD (gastroesophageal reflux disease) [facility] [facility] Work Phone: Evaluation note* Diagnosis Onset Date Resolution Status GERD (gastroesophageal reflux disease) acute Fatigue acute Gastritis, bile acid reflux acute GAVE (gastric antral vascular ectasia) [facility] Work Phone: evaluation note* Diagnosis Nonalcoholic fatty liver disease- Primary Other chronic nonalcoholic liver disease Elevated liver enzymes Other nonspecific abnormal serum enzyme levels [facility] Diagnosis Nonalcoholic fatty liver disease- Primary Other chronic nonalcoholic liver disease Elevated liver enzymes Other nonspecific abnormal serum enzyme levels Gastroparesis [facility] Diagnosis Nonalcoholic fatty liver disease- Primary Other chronic nonalcoholic liver disease Elevated liver enzymes Other nonspecific abnormal serum enzyme levels [facility] Diagnosis Nonalcoholic fatty liver disease- Primary Other chronic nonalcoholic liver disease Elevated liver enzymes Other nonspecific abnormal serum enzyme levels Gastroparesis BMI 37.0-37.9, adult Body Mass Index 37.0-37.9, adult Dietary counseling and surveillance Dietary surveillance and counseling documented in this encounter [facility] note* Diagnosis Gastroparesis- Primary [facility]* Diagnosis Preop examination- Primary Preoperative examination, unspecified [facility]* Diagnosis Gastroparesis- Primary documented in this encounter [facility] noteNo assessment [facility] Work Phone: Evaluation note* Diagnosis Gastroesophageal reflux disease without esophagitis Esophageal reflux Delayed gastric emptying Dyspepsia and other specified disorders of function of stomach NAFLD (nonalcoholic fatty liver disease) Other chronic nonalcoholic liver disease Esophageal dysphagia Dysphagia, pharyngoesophageal phase [facility] Diagnosis Gastroesophageal reflux disease without esophagitis- Primary Esophageal reflux [facility]* Diagnosis Hiatal hernia with GERD without esophagitis- Primary Esophageal dysphagia Dysphagia, pharyngoesophageal phase Class 1 obesity due to excess calories without serious comorbidity with body mass index (BMI) of 34.0 to 34.9 in adult Gastroparesis documented in this encounter [facility] note* Diagnosis Nonalcoholic fatty liver disease- Primary Other chronic nonalcoholic liver disease Elevated liver enzymes Other nonspecific abnormal serum enzyme levels [facility]* Diagnosis Hiatal hernia with GERD without esophagitis- Primary Esophageal dysphagia Dysphagia, pharyngoesophageal phase documented in this encounter [facility] note* Diagnosis Encounter for gynecological examination (general) (routine) without abnormal findings- Primary Screening for cervical cancer Screening for malignant neoplasm of the cervix Encounter for screening for human papillomavirus (HPV) Special screening examination for human papillomavirus (HPV) documented in this encounter [facility] note* Diagnosis Hypertension, essential- Primary Unspecified essential hypertension GERD without esophagitis Esophageal reflux IFG (impaired fasting glucose) Impaired fasting glucose Nonalcoholic fatty liver disease Other chronic nonalcoholic liver disease Screening cholesterol level Screening for lipoid disorders Screening for deficiency anemia Screening for other and unspecified deficiency anemia Screening for diabetes mellitus Screening for metabolic disorder Class 1 obesity with serious comorbidity and body mass index (BMI) of 34.0 to 34.9 in adult, unspecified obesity type documented in this encounter [facility] note* Diagnosis Hypertension, essential- Primary Unspecified essential hypertension GERD without esophagitis Esophageal reflux Hyperinsulinemia Other specified hypoglycemia Metabolic syndrome Dysmetabolic Syndrome X Nonalcoholic fatty liver disease Other chronic nonalcoholic liver disease Class 1 obesity with serious comorbidity and body mass index (BMI) of 34.0 to 34.9 in adult, unspecified obesity type [facility]* Diagnosis Hypertension, essential- Primary Unspecified essential hypertension GERD without esophagitis Esophageal reflux Hyperinsulinemia Other specified hypoglycemia Metabolic syndrome Dysmetabolic Syndrome X Nonalcoholic fatty liver disease Other chronic nonalcoholic liver disease Class 1 obesity with serious comorbidity and body mass index (BMI) of 34.0 to 34.9 in adult, unspecified obesity type documented in this encounter [facility] note* Diagnosis Hyperinsulinemia- Primary Other specified hypoglycemia Metabolic syndrome Dysmetabolic Syndrome X [facility]* Diagnosis Hypertension, essential- Primary Unspecified essential hypertension GERD without esophagitis Esophageal reflux Hyperinsulinemia Other specified hypoglycemia Metabolic syndrome Dysmetabolic Syndrome X Nonalcoholic fatty liver disease Other chronic nonalcoholic liver disease Class 1 obesity with serious comorbidity and body mass index (BMI) of 34.0 to 34.9 in adult, unspecified obesity type documented in this encounter [facility] for referral (narrative)* Outpatient Procedure (Routine) - Pending Review Specialty Diagnoses / Procedures Referred By Julee meyers Referred To [facility] Diagnoses Nonalcoholic fatty liver disease Elevated liver enzymes Procedures DDI VIBRATION CONTROLLED TRANSIENT ELASTOGRAPHY (VCTE) LIVER ELASTOGRAPHY W/O IMAG W/I&R Lydia Gaona PA-C [id number] [place] [phone] Referral ID Status Reason Start Date Expiration Date Visits Requested Visits Authorized [id number] Pending Review Auto-Generat ed Referral 10/23/2022 10/24/2023 1 1 [facility] for referral (narrative)* Outpatient Procedure (Routine) - Closed Specialty Diagnoses / Procedures Referred By Julee meyers Referred To [facility] Diagnoses Gastroesophageal reflux disease without esophagitis Delayed gastric emptying NAFLD (nonalcoholic fatty liver disease) Esophageal dysphagia Procedures PH HUERTA INSERT OFF MEDS GASTROESOPHAG REFLX TEST W/TELEMTRY [place] [address] [place] [phone] Referral ID Status Reason Start Date Expiration Date V isits Requested Visits Authorized [id number] Closed Auto-Generate d Referral 01/06/2023 01/06/2024 1 1 * Outpatient Procedure (Routine) - Closed Specialty Diagnoses / Procedures Referred By Contfouzia t Referred To [facility] Diagnoses Gastroesophageal reflux disease without esophagitis Delayed gastric emptying NAFLD (nonalcoholic fatty liver disease) Esophageal dysphagia Procedures EGD - THERAPEUTIC, EUS, OR TUBE INTERVENTIONS ESOPHAGOGASTRODUODENOSC OPY TRANSORAL DIAGNOST[place] [address] [place] [phone] Referral ID Status Reason Start Date Expiration Date V isits Requested Visits Authorized [id number] Closed Auto-Generate d Referral 01/06/2023 01/07/2024 1 1 [facility] for referral (narrative)* Outpatient Procedure (Routine) - Pending Review Specialty Diagnoses / Procedures Referred By Contac t Referred To Contact [facility] Diagnoses Nonalcoholic fatty liver disease Elevated liver enzymes Procedures DDI VIBRATION CONTROLLED TRANSIENT ELASTOGRAPHY (VCTE) LIVER ELASTOGRAPHY W/O IMAG W/I&R Lydia Gaona PA-C [address] [place], [place] [id number] [place] [phone] Referral ID Status Reason Start Date Expiration Date Visits Requested Visits Authorized [id number] Pending Review Auto-Generat ed Referral 05/28/2024 1 1 [facility] for referral (narrative)* Outpatient Procedure (Routine) - Pending Review Specialty Diagnoses / Procedures Referred By Contac t Referred To Contact [facility] Diagnoses Esophageal dysphagia Procedures PH HUERTA INSERT OFF MEDS GASTROESOPHAG REFLX TEST W/TELEMTRY PH [place] [address] [address] Referral ID Status Reason Start Date Expiration Date Visits Requested Visits Authorized [id number] Pending Review Auto-Generat ed Referral 11/29/2023 11/28/2024 1 1 [facility] for visit Narrative* Outpatient Procedure (Routine) - Closed Specialty Diagnoses / Procedures Referred By Julee meyers Referred To Contact [facility] Diagnoses Nonalcoholic fatty liver disease Elevated liver enzymes Procedures DDI VIBRATION CONTROLLED TRANSIENT ELASTOGRAPHY (VCTE) LIVER ELASTOGRAPHY W/O IMAG W/I&R Lydia Gaona PA-C [address] [place] [address] [address] Referral ID Status Reason Start Date Expiration Date V isits Requested Visits Authorized [id number] Closed Auto-Generate d Referral 10/23/2022 10/24/2023 1 1 [facility] for visit Narrative* Outpatient Procedure (Routine) - Closed Specialty Diagnoses / Procedures Referred By Julee meyers Referred To Contact [facility] Diagnoses Gastroesophageal reflux disease without esophagitis Delayed gastric emptying NAFLD (nonalcoholic fatty liver disease) Esophageal dysphagia Procedures EGD - THERAPEUTIC, EUS, OR TUBE INTERVENTIONS ESOPHAGOGASTRODUODENOSC OPY TRANSORAL DIAGNOSTIC [place] [address] [place] [phone] Referral ID Status Reason Start Date Expiration Date V isits Requested Visits Authorized [id number] Closed Auto-Generate d Referral 01/06/2023 01/07/2024 1 1 [facility] Instructions * Patient Instructions - Akbar Tubbs II, MD - 08/30/2017 6:54 PM EST Please go to the ED for further evaluation. in this encounter Assessments Diagnosis Blurred vision - Primary Other specified visual disturbances Summary Purpose Family History No Family History Records Found Relationship Condition Age at Onset Recorded Date/T yary mother Hypertension Unknown aunt Malignant neoplasm of lung Unknown grandmother Hypertension Unknown Cardiac disease Unknown grandfather Hypertension Unknown grandfather Diabetes mellitus Unknown grandmother Transient ischemic attack Unknown Hypertension Unknown uncle Malignant neoplasm of colon Unknown Advance Directives No Advanced Directives Records Found Advance Directive Response Recorded Date/ Time Living Will No August 17 9:52am Power of Gripper Machine Operator No August 17 023 9:52am Advance Directive Response Recorded Date/ Time Name of Medical Power of Gripper Machine Operator JEANNE Meyers 2023 7:09pm Living Will Yes 2023 7 :09pm Power of Gripper Machine Operator Yes 2023 7:09pm Chief Complaint and Reason for Visit Chief Complaint HEARTBURN Reason for Visit GERD (gastroesophage al reflux disease) Chief Complaint HEARTBURN 2 WK FU INT LABS Reason for Visit GERD (gastroesophage al reflux disease) Fatigue Gastritis, bile acid reflux GAVE (gastric antral vascular ectasia) Chief Complaint HEARTBURN 2 WK FU INT LABS GASTRITIS Reason for Visit GERD (gastroesophage al reflux disease) Fatigue Gastritis, bile acid reflux GAVE (gastric antral vascular ectasia) Chief Complaint GASTRITIS FLANK Reason for Referral Specialty Diagnoses / Procedures Referred By Julee meyers Referred To Contact Nutrition Diagnoses Nonalcoholic fatty liver disease Elevated liver enzymes Procedures CONSULT TO NUTRITION THERAPY MEDICAL NUTRITION ASSMT&IVNTJ INDIV EACH 15 MS MEDICAL NUTRITION ASSMT&IVNTJ INDIV EACH 15 MS MEDICAL NUTRITION ASSMT&IVNTJ INDIV EACH 15 MS MEDICAL NUTRITION ASSMT&IVNTJ INDIV EACH 15 MS Lydia Gaona PA-C [address] [place] [address] Referral ID Status Reason Start Date Expiration Date Visits Requested Visits Authorized [id number] Authorized PCP Requested Referral 11/25/2022 11/25/2023 1 1 Additional Source Comments Transfer Center Note - Yadi Wilkins RN - 08/30/2017 7:08 PM EST Miscellaneous Notes (unrecog nized section and content) Narrative: Coming from [facility]. Report taken from Dr. Chu. Pt reporting 1 hr of vision changes. Unclear what eye was effected. Symptoms have resolved. Oxygenation: 180/110, 80, 98.6, 16, 98%RA in this encounter INFORMATION SOURCE (unrecogn ized section and content) DATE CREATED AUTHOR 02/06/2018 [facility] DATE CREATED AUTHOR AUTHOR'S ORGANIZ ATION 02/07/[address] [facility] DATE CREATED AUTHOR AUTHOR'S ORGANIZ ATION 02/07/2018 [facility] DATE CREATED AUTHOR AUTHOR'S ORGANIZ ATION 04/01/2020 [facility] DATE CREATED AUTHOR AUTHOR'S ORGANIZ ATION 12/31/2020 [facility] DATE CREATED AUTHOR AUTHOR'S ORGANIZ ATION 10/16/2021 [facility] DATE CREATED AUTHOR AUTHOR'S ORGANIZ ATION 02/10/2023 [facility] DATE CREATED AUTHOR AUTHOR'S ORGANIZ ATION 05/09/2024 [facility] DATE CREATED AUTHOR AUTHOR'S ORGANIZ ATION 01/12/2025 [facility] DATE CREATED AUTHOR AUTHOR'S ORGANIZ ATION 03/28/2025 [facility] Source Comments (unrecognize d section and content) In the event this informatio n is protected by the Federal Confidentiality of Alcohol and Drug Abuse Patient Records regulations: The Federal rules restrict any use of the information to criminally investigate or prosecute any alcohol or drug abuse patient.[facility] Center[facility] the event this information is protected by the Federal Confidentiality of Alcohol and Drug Abuse Patient Records regulations: The Federal rules restrict any use of the information to criminally investigate or prosecute any alcohol or drug abuse patient.[facility] CenterIn the event this information is protected by the Federal Confidentiality of Alcohol and Drug Abuse Patient Records regulations: The Federal rules restrict any use of the information to criminally investigate or prosecute any alcohol or drug abuse patient.[facility] CenterIn the event this information is protected by the Federal Confidentiality of Alcohol and Drug Abuse Patient Records regulations: The Federal rules restrict any use of the information to criminally investigate or prosecute any alcohol or drug abuse patient.[facility] CenterIn the event this information is protected by the Federal Confidentiality of Alcohol and Drug Abuse Patient Records regulations: The Federal rules restrict any use of the information to criminally investigate or prosecute any alcohol or drug abuse patient.[facility] CenterIn the event this information is protected by the Federal Confidentiality of Alcohol and Drug Abuse Patient Records regulations: The Federal rules restrict any use of the information to criminally investigate or prosecute any alcohol or drug abuse patient.[facility] CenterIn the event this information is protected by the Federal Confidentiality of Alcohol and Drug Abuse Patient Records regulations: The Federal rules restrict any use of the information to criminally investigate or prosecute any alcohol or drug abuse patient.[facility] CenterIn the event this information is protected by the Federal Confidentiality of Alcohol and Drug Abuse Patient Records regulations: The Federal rules restrict any use of the information to criminally investigate or prosecute any alcohol or drug abuse patient.[facility] CenterIn the event this information is protected by the Federal Confidentiality of Alcohol and Drug Abuse Patient Records regulations: The Federal rules restrict any use of the information to criminally investigate or prosecute any alcohol or drug abuse patient.[facility] CenterIn the event this information is protected by the Federal Confidentiality of Alcohol and Drug Abuse Patient Records regulations: The Federal rules restrict any use of the information to criminally investigate or prosecute any alcohol or drug abuse patient.[facility] CenterIn the event this information is protected by the Federal Confidentiality of Alcohol and Drug Abuse Patient Records regulations: The Federal rules restrict any use of the information to criminally investigate or prosecute any alcohol or drug abuse patient.[facility] CenterIn the event this information is protected by the Federal Confidentiality of Alcohol and Drug Abuse Patient Records regulations: The Federal rules restrict any use of the information to criminally investigate or prosecute any alcohol or drug abuse patient.[facility] CenterIn the event this information is protected by the Federal Confidentiality of Alcohol and Drug Abuse Patient Records regulations: The Federal rules restrict any use of the information to criminally investigate or prosecute any alcohol or drug abuse patient.[facility] CenterIn the event this information is protected by the Federal Confidentiality of Alcohol and Drug Abuse Patient Records regulations: The Federal rules restrict any use of the information to criminally investigate or prosecute any alcohol or drug abuse patient.[facility] CenterIn the event this information is protected by the Federal Confidentiality of Alcohol and Drug Abuse Patient Records regulations: The Federal rules restrict any use of the information to criminally investigate or prosecute any alcohol or drug abuse patient.[facility] CenterIn the event this information is protected by the Federal Confidentiality of Alcohol and Drug Abuse Patient Records regulations: The Federal rules restrict any use of the information to criminally investigate or prosecute any alcohol or drug abuse patient.[facility] CenterIn the event this information is protected by the Federal Confidentiality of Alcohol and Drug Abuse Patient Records regulations: The Federal rules restrict any use of the information to criminally investigate or prosecute any alcohol or drug abuse patient.[facility] CenterIn the event this information is protected by the Federal Confidentiality of Alcohol and Drug Abuse Patient Records regulations: The Federal rules restrict any use of the information to criminally investigate or prosecute any alcohol or drug abuse patient.[facility] CenterIn the event this information is protected by the Federal Confidentiality of Alcohol and Drug Abuse Patient Records regulations: The Federal rules restrict any use of the information to criminally investigate or prosecute any alcohol or drug abuse patient.[facility] CenterIn the event this information is protected by the Federal Confidentiality of Alcohol and Drug Abuse Patient Records regulations: The Federal rules restrict any use of the information to criminally investigate or prosecute any alcohol or drug abuse patient.[facility] CenterIn the event this information is protected by the Federal Confidentiality of Alcohol and Drug Abuse Patient Records regulations: The Federal rules restrict any use of the information to criminally investigate or prosecute any alcohol or drug abuse patient.[facility] CenterIn the event this information is protected by the Federal Confidentiality of Alcohol and Drug Abuse Patient Records regulations: The Federal rules restrict any use of the information to criminally investigate or prosecute any alcohol or drug abuse patient.[facility] CenterIn the event this information is protected by the Federal Confidentiality of Alcohol and Drug Abuse Patient Records regulations: The Federal rules restrict any use of the information to criminally investigate or prosecute any alcohol or drug abuse patient.[facility] CenterIn the event this information is protected by the Federal Confidentiality of Alcohol and Drug Abuse Patient Records regulations: The Federal rules restrict any use of the information to criminally investigate or prosecute any alcohol or drug abuse patient.[facility] CenterIn the event this information is protected by the Federal Confidentiality of Alcohol and Drug Abuse Patient Records regulations: The Federal rules restrict any use of the information to criminally investigate or prosecute any alcohol or drug abuse patient.[facility] CenterIn the event this information is protected by the Federal Confidentiality of Alcohol and Drug Abuse Patient Records regulations: The Federal rules restrict any use of the information to criminally investigate or prosecute any alcohol or drug abuse patient.[facility] Care Teams (unrecognized sec tion and content) Electrician Underground Relationship Specialty Start Date End Date Zenaida Stacy PA-C [address] [place] [address] PCP - General Family Practice 04/11/17 Electric[employer] Relationship Specialty Start Date End Date Zenaida Stacy PA-C [address] [place] [address] PCP - General Family Practice 04/11/17 Electrician Underground Relationship Specialty Start Date End Date Zenaida Stacy PA-C [address] [place] [address] PCP - General Family Medicine 04/11/17 Team Status: Active Member Role Status Dates Dr. Leon South MD Family Provider Active Dr. Vijay Godinez MD Primary Care Provider Active Team Status: Inactive Member Role Status Dates Dr. Leon South MD Primary Care Provider, Referring Provider Active Sima Tatum VOCATIONAL REHABILITATION TEACHER, VOCATIONAL REHABILITATION TEACHER-C Attending Provider Active Team Status: Inactive Member Role Status Dates Dr. Vijay Godinez MD Primary Care Provider, Referrin g Provider Active Sima Tatum VOCATIONAL REHABILITATION TEACHER, VOCATIONAL REHABILITATION TEACHER-C Attending Provider Active Team Status: Active Member Role Status Dates Dr. Vijay Godinez MD Primary Care Provider, Referrin g Provider Active Dr. Matt Joyner DO Attending Provider, Other Prov ider Active Team Status: Inactive Member Role Status Dates Dr. Vijay Godinez MD Primary Care Provider, Referrin g Provider Active Dr. Matt Joyner DO Attending Provider Active Team Status: Inactive Member Role Status Dates Dr. Vijay Godinez MD Primary Care Provider Active Sima Tatum VOCATIONAL REHABILITATION TEACHER, VOCATIONAL REHABILITATION TEACHER-C Attending Provider, Referrin g Provider Active Team Status: Inactive Member Role Status Dates Dr. Vijay Godinez MD Primary Care Provider Active Sima Tatum VOCATIONAL REHABILITATION TEACHER, VOCATIONAL REHABILITATION TEACHER-C Attending Provider Active Electric[employer] Underground Relationship Specialty Start Date End Date Zenaida Stacy PA-C [address] [facility] [place] [address] PCP - General Family Medicine 04/11/17 Electrician Underground Relationship Specialty Start Date End Date Zenaida Stacy PA-C [address] [facility] [place] [address] PCP - General Family Medicine 04/11/17 Electrician Underground Relationship Specialty Start Date End Date Zenaida Stacy PA-C [address] [facility] [place] [address] PCP - General Family Medicine 04/11/17 Electrician Underground Relationship Specialty Start Date End Date Zenaida Stacy PA-C [address] [facility] [place] [address] PCP - General Family Medicine 04/11/17 Electrician Underground Relationship Specialty Start Date End Date Zenaida Stacy PA-C [address] [facility] [place] [address] PCP - General Family Medicine 04/11/17 Electrician Underground Relationship Specialty Start Date End Date Zenaida Stacy PA-C [address] [facility] [place] [facility] [place] [address] PCP - General Family Medicine 04/11/17 [employer] Relationship Specialty Start Date End Date Zenaida Stacy PA-C [address] [facility] [place] [address] PCP - General Family Medicine 04/11/17 Team Status: Inactive Member Role Status Dates Dr. Vijay Godinez MD Primary Care Provider Active Dr. Tucker Bob MD Emergency Provider Active [employer] Relationship Specialty Start Date End Date Zenaida Stacy PA-C [address] [facility] [place] [address] PCP - General Family Medicine 04/11/17 Electric[employer] Relationship Specialty Start Date End Date Zenaida Stacy PA-C [address] [facility] [place] [address] PCP - General Family Medicine 04/11/17 Electrician [employer] Relationship Specialty Start Date End Date Zenaida Stacy PA-C [address] [facility] [place] [address] PCP - General Family Medicine 04/11/17 Electric[employer] Relationship Specialty Start Date End Date Zenaida Stacy PA-C [address] [facility] [place] [address] PCP - General Family Medicine 04/11/17 Electric[employer] Relationship Specialty Start Date End Date Zenaida Stacy PA-C [address] [facility] [place] [address] PCP - General Family Medicine 04/11/17 Electrician [employer] Relationship Specialty Start Date End Date Zenaida Stacy PA-C [address] [facility] [place] [address] PCP - General Family Medicine 04/11/17 Electric[employer] Relationship Specialty Start Date End Date Zenaida Stacy PA-C [address] [facility] [place] [address] PCP - General Family Medicine 04/11/17 [employer] Relationship Specialty Start Date End Date Zenaida Stacy PA-C [address] [facility] [place] [address] PCP - General Family Medicine 04/11/17 [employer] Relationship Specialty Start Date End Date Madhu Stacy PA-C PCP - General Family Medicine 04/11/17 Chio Flaherty APRN.ENVIRONMENTAL REMEDIATION ENGINEER [address] [place] [address] [employer] Family [facility] 07/20/24 Sally Lantigua APRN.ENVIRONMENTAL REMEDIATION ENGINEER [address] [place] [address] Basketball Referee [facility] 07/20/24 Electric[employer] Relationship Specialty Start Date End Date Vijay Godinez MD [address] [address] PCP - General Internal Medicine 10/02/24 Chio Flaherty SECURITY CONSULTANT.ENVIRONMENTAL REMEDIATION ENGINEER [address] [place] [address] Basketball Referee [facility] 07/20/24 Sally Lantigua SECURITY CONSULTANT.ENVIRONMENTAL REMEDIATION ENGINEER [address] [place] [address] [facility] [employer] Relationship Specialty Start Date End Date Vijay Godinez MD [address] [address] PCP - General Internal Medicine 10/02/24 Chio Flaherty, SECURITY CONSULTANT.ENVIRONMENTAL REMEDIATION ENGINEER [address] [place] [address] [facility] 07/20/24 Sally Lantigua SECURITY CONSULTANT.ENVIRONMENTAL REMEDIATION ENGINEER [address] [place] [address] [facility] [employer] Relationship Specialty Start Date End Date Vijay Godinez MD [address] [address] PCP - General Internal Medicine 10/02/24 Chio Flaherty APRN.ENVIRONMENTAL REMEDIATION ENGINEER [address] [place] [address] Formerly [facility], [facility] 07/20/24 Sally Lantigua APRN.ENVIRONMENTAL REMEDIATION ENGINEER [address] [facility] [place] [address] Formerly [facility], [facility] 07/20/24 Electrician Underground Relationship Specialty Start Date End Date Vijay Godinez MD [address] [id number] PCP - General Internal Medicine 10/02/24 Chio Flaherty APRN.ENVIRONMENTAL REMEDIATION ENGINEER [address] [place] [address] Formerly [facility], [facility] 07/20/24 Sally Lantigua APRN.ENVIRONMENTAL REMEDIATION ENGINEER [address] [facility] [place] [address] Formerly [facility], [facility] 07/20/24 Electric[employer] Underground Relationship Specialty Start Date End Date Vijay Godinez MD [address] [id number] PCP - General Internal Medicine 10/02/24 Chio Flaheryt APRN.ENVIRONMENTAL REMEDIATION ENGINEER [address] [place] [address] Formerly [facility], [facility] 07/20/24 Sally Lantigua APRN.ENVIRONMENTAL REMEDIATION ENGINEER [address] [facility] [place] [address] Formerly [facility], [facility] 07/20/24 Reason for Visit (unrecogniz ed section and content) Reason Onset Date Comments Refill Request 03/22/2022 Reason Onset Date Comments Refill Request 08/17/2022 Reason Comments Non Alcoholic Fatty Liver Disease Reason Comments Established Patient Nonalcoholic fatty l iver disease, elevated liver enzymes Reason Comments Patient Education Assessment Specialty Diagnoses / Procedures Referred By Julee t Referred To Contact Nutrition Diagnoses Nonalcoholic fatty liver disease Elevated liver enzymes Procedures CONSULT TO NUTRITION THERAPY MEDICAL NUTRITION ASSMT&IVNTJ INDIV EACH 15 MS MEDICAL NUTRITION ASSMT&IVNTJ INDIV EACH 15 MS MEDICAL NUTRITION ASSMT&IVNTJ INDIV EACH 15 MS MEDICAL NUTRITION ASSMT&IVNTJ INDIV EACH 15 MS Lydia Gaona PA-C [address] [place] [address] Referral ID Status Reason Start Date Expiration Date V isits Requested Visits Authorized [id number] Closed PCP Requested Referral 11/25/2022 11/25/2023 1 1 Reason Comments Pre appointment assessment Reason Comments Pre-Op Visit Reason Comments EGG RESULTS Reason Comments Patient Update Reason Comments Gastroparesis GERD Reason Comments Follow Up Reason Comments Radiology NM Reason Comments Orders Reason Comments Yearly Exam Reason Onset Date Comments Weight Management 10/02/2024 Reason Comments Weight Management Goals (unrecognized section and content) Goals may be documented in a n alternate section FOR RECORDS PERTAINING TO PATIENTS WHO ARE OR HAVE BEEN ENROLLED IN A CHEMICAL DEPENDENCY/SUBSTANCEABUSE PROGRAM, SOME INFORMATION MAY BE OMITTED. This clinical summary was aggregated from multiple sources. Caution should be exercised in using it in the provision of clinical care. This summary normalizes information from multiple sources, and as a consequence, information in this document may materially change the coding, format and clinical context of patient data. In addition, data may be omitted in some cases. CLINICAL DECISIONS SHOULD BE BASED ON THE PRIMARY CLINICAL RECORDS. [employer] provides no warranty or guarantee of the accuracy or completeness of information in this document.
== END | disposition home or self-care (01) ==
LOC: OPBI 07:25
PROVIDERS: PCP Internal Medicine; Referring Provider Family Medicine; Visit Provider Family Medicine
DX: Z12.31 Encounter for screening mammogram for malignant neoplasm of breast (principal)
CPT/HCPCS: 77063; 77067

== ENCOUNTER 2025-04-08 17:27 | Emergency (ER) | payer BC, SELFPAY ==
[2025-04-08] VITALS (7 sets, daily range): BP systolic 116–173; BP diastolic 90–125; PULSE 85–97; RESP 16–20; TEMP 36.2; O2SAT 98–100; BMI 35.5
--- NOTE | 2025-04-08 17:32 | EKG12_ITS ---
Test Reason : CP Blood Pressure : */* mmHG Vent. Rate : 87 BPM Atrial Rate : 87 BPM P-R Int : 110 ms QRS Dur : 92 ms QT Int : 370 ms P-R-T Axes : 0 17 8 degrees QTcB Int : 445 ms Sinus rhythm with short [place] Nonspecific ST abnormality Abnormal ECG Confirmed by CLINT LAGUNAS ([id number]), desk editor BABAK LYON ([id number]) on 04/10/2025 1:56:36 PM Referred By: Confirmed By: CLINT LAGUNAS
--- NOTE | 2025-04-08 17:58 | RAD_ITS ---
PROCEDURE: CHEST PA AND LATERAL 04/08/2025 REASON FOR EXAM: CHEST PAIN TECHNIQUE: CHEST PA AND LATERAL COMPARISON: None. FINDINGS: Lungs/Pleura: Clear. No pneumothorax or pleural effusion. Heart/Mediastinum: Normal in size. Bones/Soft tissues: No significant abnormality. RAD/Chest PA and Lateral IMPRESSION: No acute cardiopulmonary disease. Reading Location: [id number]
[2025-04-08 18:00] LABS: Hematocrit 40.8 % (37-47); Hemoglobin 13.3 g/dL (12.0-15.0); Immature Granulocytes Count 0.030 X10^3/uL (0.0-0.0); Mean Corp Hgb Conc 32.6 g/dL (32-36); Mean Corpuscular Volume 73.1 fL (81-99); Mean Platelet Vol. 9.7 fl (6.2-12.0); NRBC Flagged by Analyzer 0 % (0-5); Platelet Count 309 K/mm3 (150-450); RBC Distribution Width CV 14.6 % (11.6-14.6); RBC Distribution Width SD 37.7 fl (35.1-43.9); Red Blood Count 5.58 M/mm3 (4.2-5.4); White Blood Count 9.6 K/mm3 (4.4-11.0)
[2025-04-08 18:16] LABS: Anion Gap 16 (5-15); BUN 13 mg/dL (4-19); BUN/Creat Ratio 23.1 RATIO (10-20); Calcium,Total 9.7 mg/dL (7.6-11.0); Carbon Dioxide 19.8 mmol/L (21.0-32.0); Chloride 103 mmol/L (98-108); Estimated Creatinine Clearance 125.13 ml/min (50-250); Glucose 110 mg/dL (70-99); Potassium 3.9 mmol/L (3.3-5.1); Troponin T High Sensitivity < 6 ng/L (<=14)
--- OUTSIDE RECORDS SUMMARY | 2025-04-08 18:48 | XMS RPT_ITS | CCD ---
Author Organization [facility] Care Team Providers Care Rn Advanced Name Role Phone Leon South Unavailable NASEEM DICKINSON Unavailable Unavaila LEON Jesus Unavailable Unavailable AKBAR TUBBS Unavailable Unavailable ADRIANNA MCKENNA Unavailable Unavai labLEON Reddy Unavailable Unavailable Yandel Stacy PA-C Primary Care Provider [phone] Yandel Stacy PA-C Primary Care Provider [phone] Dr. Leon South Primary Care Provider Dr. Leon South Referring Provider Rc CORRECTIONAL THERAPY TEACHER, CORRECTIONAL THERAPY TEACHER-C Michael Humphries Attending Provider [phone] Dr. Vijay Godinez Primary Care Provider Dr. Vijay Godinez Referring Provider [phone] Dr. Matt Joyner Attending Provider FriendDr. Gutierrez Other Provider Yandel Stacy PA-C Primary Care Provider [phone] SUZI WATKINS Referring Unavailable Yandel STACY Primary Care Unavailable KEAGAN STILL Attending Unavailable ADRIANNA FOUNTAIN Referring Unavailable Yandel STACY Primary Care Unavailable VIJAY GODINEZ MD Primary Care Unavailable VIJAY GODINEZ MD Consulting Unavailable VIJAY GODINEZ MD Attending Unavailable VIJAY GODINEZ MD Admitting Unavailable PROVIDER, UNKNOWN Consulting Unavailable PROVIDER, UNKNOWN Consulting Unavailable PROVIDER, UNKNOWN Consulting Unavailable Yandel Stacy PA-C Primary Care Provider [phone] Madhu Stacy PA-C Primary Care Provider Unavailable Haagen BUSHER HELPER.BULK SEALER OPERATOR, Chio Unavailable Grzegorz BUSHER HELPER.BULK SEALER OPERATOR, Sally Arias Unavailable Herbert HELMS, Vijay Primary Care Provider JACLYN IVORY Referring Unavailable LATOUF, BUTROS Primary Care Unavailable IVORYJACLYN SINGH Attending Unavailable REGIS, MADHU GOLDSMITH Primary Care Unavailable MICHAEL MILLIGAN Attending Unavailable REGIS, MADHU GOLDSMITH Primary Care Unavailable LATOUF, BUTROS Primary Care Unavailable IVORYJACLYN SIGNH Attending Unavailable JACLYN IVORY Attending Unavailable LATOUF, BUTROS Primary Care Unavailable JACLYN IVORY Attending Unavailable LATF, BUTROS Primary Care Unavailable Herbert HELMS, Dr. Stapleton Primary Care Provider Anil HELMS, Dr. Siegel Attending Provider Anil HELMS, Dr. Siegel Referring Provider Robbin Ma Referring Unavailable Robbin Ma Attending [facility]available [facility] Unavailable Medications Current Medications Medication Drug Class(es) Dates Sig (Normalized) Sig (Original) acetaminophen 325 mg / oxyCODONE hydrochloride 5 mg oral tablet (2 sources) Opioid Agonist Start: 2023 take 1 tablet by mouth every six hours as needed for pain Oxycodone-Acetami nophen 5-325 mg tablet Active 1 {tbl} PO EVERY 6 HOURS NEEDED as needed for Pain 12 3 0 2023 Calculus of left kidney Calculus of kidney Start: 2023 take 1 tablet by lul th every six hours as needed Oxycodone-Acetaminophen Active 1 TABLET PO EVERY 6 HOURS NEEDED 12 3 2023 amLODIPine 10 mg oral tablet (20 sources) Dihydropyridine Calcium Channel Kisha Start: 03-19-2019 End: 08-17-2022 take 1 tablet by mouth once daily Amlodipine 10 MG tablet Active 10 mg PO DAILY March 19, 2019 12:00am chronic htn Comment on above: Take 1 tablet by lul th once daily. hydroCHLOROthiazide 25 mg oral tablet (2 sources) Thiazide Diuretic take 1 tablet by mouth once daily hydroCHLOROthiazide (HYDRODIURIL) 25 MG tablet Take 25 mg by mouth daily. Active ketoconazole 20 mg/ml medicated shampoo (7 sources) Azole Antifungal Start: 05-31-2024 ketoconazole (NIZORAL) 2 % shampoo WASH THE SCALP ONCE EVERY OTHER WASH, LETTING IT LATHER FOR 3-5 MINUTES BEFORE RINSING 05/31/2024 Active labetalol hydrochloride 200 mg oral tablet (20 sources) beta-Adrenergic Kisha Start: 03-25-2022 take 1 tablet by mouth three times daily Labetalol 200 mg tablet Active 200 mg PO THREE TIMES A DAY April 09, 2022 12:00am Start: 11-04-2020 End: 03-22-2022 take 1 tablet by mouth three times daily labetalol (TRANDATE) 200 mg tablet Indications: Hypertension, essential Take 1 tablet by mouth three times daily. 90 tablet 1 11/04/2020 03/22/2022 Discontinued Start: 03-19-2019 End: 04-09-2022 take 400 mg by mouth three times daily Labetalol Discontinued 400 mg PO THREE TIMES A DAY March 19, 2019 12:00am April 09, 2022 8:48am chronic HTN Comment on above: Take 1 tablet by lul th three times daily. 24 hr metFORMIN hydrochloride 500 mg extended release oral tablet (5 sources) Biguanide Start: 025 End: 025 take 34-34.9 tablets by mouth twice daily [...] daily. Active naproxen 500 mg oral tablet (2 sources) Nonsteroidal Anti-inflammatory Drug Start: 023 take 1 tablet by mouth twice daily as needed for pain Naproxen (Naprosyn) 500 mg tablet Active 500 mg PO TWICE A DAY as needed for pain 20 0 2023 12:00am omeprazole 40 mg delayed release oral capsule (20 sources) Proton Pump Inhibitor Start: take 1 capsule by mouth twice daily Omeprazole 40 mg capsule,delayed release(DR/EC) Active 40 mg PO TWICE A DAY April 09, 2022 12:00am Start: 09-24-2021 End: 12-25-2021 take 1 capsule [...] meals. ondansetron 4 mg disintegrating oral tablet (2 sources) Serotonin-3 Receptor Antagonist Start: 01-18-20 take 1 tablet by mouth every eight hours as needed for nausea Ondansetron 4 mg tablet,disintegrating Active 4 mg PO EVERY 8 HOURS NEEDED as needed for Nausea 10 2023 12:00am tamsulosin hydrochloride 0.4 mg oral capsule (2 sources) alpha-Adrenergic Kihsa Start: 01-18-20 take 1 capsule by mouth once daily Tamsulosin (Flomax) 0.4 mg capsule Active 0.4 mg PO DAILY 7 2023 12:00am topiramate 25 mg oral tablet [...] 04/10/2025 Active ursodiol 250 mg oral tablet (9 sources) Bile Acid Start: 09-30-19 End: 05-30-20 23 take 1 tablet by mouth twice daily Ursodiol 250 mg tablet Active 250 mg PO TWICE A DAY 180 1 September 30, 2022 1:00am Comment on above: Take 250 mg by mouth twice daily. Completed/Discontinued Medications Medication Drug Class(es) Dates Sig (Normalized) Sig (Original) aspirin 81 mg delayed release oral tablet (5 sources) Platelet Aggregation Inhibitor, Nonsteroidal Anti-inflammatory Drug Start: 03-19-2019 End: 03-22-2019 take 1 tablet by mouth once daily Aspirin 81 MG tablet,delayed release (DR/EC) Discontinued 81 mg PO DAILY March 19, 2019 12:00am March 22, 2019 8:15am hypertension ferrous sulfate 325 mg oral tablet (5 sources) Start: 03-22-2019 End: 06-17-2022 take 1 tablet by mouth once daily Ferrous Sulfate 325 MG tablet Discontinued 325 mg PO DAILY@1200 0 March 22, 2019 12:00am June 17, 2022 11:38am Vit,Dsqy13-Inst-X olic (4 sources) Start: 03-19-2019 End: 04-09-2022 take 1 tablet by mouth once daily Vit,Cqcg42-Vgsn-Fr lic Discontinued 1 TABLET PO DAILY March 19, 2019 12:00am April 09, 2022 8:48am Start: 03-19-2019 End: 04-09-2022 take 1 tablet by mouth once daily Vit,Lxpp90-Isno-Cjvmc Discontinued 1 TABLET PO DAILY March 18, 2019 11:00pm April 09, 2022 7:48am Vit,Yduk86-Ldda-Sehzj 1 TABLET tablet (1 source) Start: 03-19-2019 End: 04-09-2022 take 1 tablet by mouth once daily Vit,Lzlx26-Xdbs-Denjj 1 TABLET tablet Discontinued 1 {tbl} PO DAILY March 19, 2019 12:00am April 09, 2022 8:48am Problems Active Problems Problem Classification Problem Date Documented Da te Episodic/Chronic Abdominal hernia (2 sources) Gastroesophageal reflux disease with hiatal hernia; Translations: [Diaphragmatic hernia without obstruction or gangrene] 02-24-2023 Episodic Calculus of urinary tract (2 sources) Kidney stone; Translations: [Calculus of kidney] 2023 Episodic Esophageal disorders (20 sources) Gastroesophageal reflux disease without esophagitis; Translations: [Gastro-esophageal reflux disease without esophagitis] Onset: 2 12-25-2021 Chronic Essential hypertension (20 sources) Essential (primary) hypertension; Translations: [Essential hypertension] Onset: 8 10-20-2017 Chronic Gastritis and duodenitis (6 sources) Bile-induced gastritis; Translations: [Other gastritis without bleeding] 09-10-2022 Episodic Genitourinary symptoms and ill-defined conditions (2 sources) Blood in urine; Translations: [Hematuria, unspecified] 2023 Episodic Immunizations and screening for infectious disease (6 sources) Requires a tetanus booster; Translations: [Encounter for immunization] 02-07-2016 Episodic Malaise and fatigue (20 sources) Fatigue; Translations: [Other fatigue] Onset: 3 09-10-2022 Episodic Nausea and vomiting (2 sources) Nausea; Translations: [Nausea] 2023 Episodic Other disorders of stomach and duodenum (20 sources) Vascular ectasia of gastric antrum; Translations: [Angiodysplasia of stomach and duodenum without bleeding] Onset: 3 09-10-2022 Episodic Other disorders of stomach and duodenum (2 sources) Angiodysplasia of stomach and duodenum without bleeding; Translations: [Angiodysplasia of stomach and duodenum without mention of hemorrhage] 09-10-2022 Episodic Other disorders of stomach and duodenum (20 sources) Gastroparesis syndrome; Translations: [Gastroparesis] Onset: 3 09-30-2022 Episodic Other disorders of stomach and [...] and finger(s), initial encounter] 03-19-2019 Episodic Other injuries and conditions due to external causes (1 source) Injury of finger of right hand; Translations: [Unspecified injury of right wrist, hand and finger(s), initial encounter] 02-07-2016 Episodic Other liver diseases (20 sources) Fatty [...] 5 Chronic Other and delivery including normal (5 sources) Vaginal delivery; Translations: [Encounter for full-term [...] 34.9 in adult, unspecified obesity type] Onset: Past or Other Problems Problem Classification Problem Date Documented Da te Episodic/Chronic Administrative/social admission (12 sources) Patient encounter [...] trimester] Onset: 08-31-2018 Resolved: 04-04-2019 04-04-2019 Chronic Other complications of (7 sources) Supervision of [...] Test Name Value Interpretation Reference Range Facility Breast imaging reportOrdered By: Yenni Montalvo on 03-29-2025 Study report [facility] Imaging Services [address] [place], [place] [address] SCRN MAMM (CAD)W/CORDELIA BILAT MR#: [id number] Acct: [id number] Name: FOREST NGUYEN Rep #: [id number] : 1985 F 40 From: Lorraine Montalvo MD PCP: Dr. Vijay Godinez MD Status: REG CLI Study:SCRN MAMM (CAD)W/CORDELIA BILAT Date of Exa m: 03/29/25 Exam# [id number] Ordering Dr: Diego Ma MD EXAM: SCRN MAMM (CAD)W/CORDELIA BILAT DATE: 03/29/2025 CLINICAL HISTORY: F, Age 40 y/o , HIGH RISK FAMILY HX. WANTS NOW BEFORE 40Y TECHNIQUE: SCRN MAMM (CAD)W/CORDELIA BILAT COMPARISON: Baseline examination, no priors. FINDINGS: TISSUE DENSITY: There are scattered areas of fibroglandular density. Bilateral Breast Mammographic Findings: No significant masses, calcifications or other abnormalities are identified. BI/SCRN MAMM (CAD)W/CORDELIA BILAT IMPRESSION: There is no mammographic evidence of malignancy. OVERALL FINAL ASSESSMENT BI-RADS 1: NEGATIVE. RECOMMENDATION: Routine annual follow-up in 1 Year A letter with findings and recommendations will be mailed to the patient. Reading Location: [facility] CC: Dr. Vijay Godinez MD; Dr. Robbin Ma MD ~ Reservation Sales Agent: Signed [facility] SCRN MAMM (CAD)W/CORDELIA BILATo n 03-29-2025 SCRN MAMM (CAD)W/CORDELIA BILAT [facility] Imaging Services [address] [place], [place] [address] SCRN MAMM (CAD)W/CORDELIA BILAT MR#: [id number] Acct: [id number] Name: FOREST NGUYEN Rep #: [id number] : 1985 F 40 From: Yenni Montalvo MD PCP: Dr. Vijay Godinez MD Status: REG CLI Study: SCRN MAMM (CAD)W/CORDELIA BILAT Date of Exam: 03/15 01/06 Exam# [id number] Ordering Dr: Robbin Ma MD EXAM: SCRN MAMM (CAD)W/CORDELIA BILAT DATE: 03/29/2025 CLINICAL HISTORY: F, Age 40 y/o , HIGH RISK FAMILY HX. WANTS NOW BEFORE 40Y TECHNIQUE: SCRN MAMM (CAD)W/CORDELIA BILAT COMPARISON: Baseline examination, no priors. FINDINGS: TISSUE DENSITY: There are scattered areas of fibroglandular density. Bilateral Breast Mammographic Findings: No significant masses, calcifications or other abnormalities are identified. BI/SCRN MAMM (CAD)W/CORDELIA BILAT IMPRESSION: There is no mammographic evidence of malignancy. OVERALL FINAL ASSESSMENT BI-RADS 1: NEGATIVE. RECOMMENDATION: Routine annual follow-up in 1 Year A letter with findings and recommendations will be mailed to the patient. Reading Location: [id number] CC: Dr. Vijay Godinez MD; Dr. Robbin Ma MD Reservation Sales Agent: Signed Normal [facility] CNOVon 01-10-2025 CNOV Office Visit (OBGYWM ) FOREST NGUYEN ([id number]) 1985 F Date Time Provider Department 01/10/25 7:30 AM JACLYN IVORY OBGYWYandel During your visit today, we recorded the following information about you: Pulse Respiration Blood pressure Weight 94/minute 16/minute 132/88 80.3 kg Jaclyn Ivory APRN.BULK SEALER OPERATOR 01/10/2025 8:19 AM Addendum Diego protein bar [...] protein AND 2g carb Two Good Lowfat [place] Yogurt, Lower Sugar - 12g protein AND [...] oz is 28 gm protein Beef, Chicken, [place], Pork, Duran 1 oz 7g Fish, Tuna [...] (not a meal replacement) Protein AND carbs Beef/[place] Jerky 1 oz dried 10-15g protein - check carb count, can be high if sugar added Slim Jerardo - 6 gm protein and 4 net carb Great Value original turkey sausage sticks - 7 gm protein and 2 gm carb Belinda (at [facility]) Original smoked sausage sticks - 8 gm protein and 0 carb Imitation Crab Meat 1 oz - 2g protein AND 4g carb Milk, skim 2% or 1% 8 oz - 8g protein AND 12g carb Fairlife 2% milk 8 oz -13g protein AND 6g car [place] yogurt Full Fat [place] Yogurt 1 cup - 20.4g protein AND 9.1g carb 2% [place] Yogurt 1 cup - 22.7g protein AND 9.1g carb 0% (fat-free) [place] Yogurt - 1 cup 24g protein AND 9.3g carb Aldi Protein [place] yogurt single svg - 13/g15g protein AND 7g carb Chobani Zero Sugar single svg: - 12g protein AND 5g carb Dannon [place] Light + Fit 1 single svg - 12g protein AND 9g carb Oikos Pro single svg - 20g protein AND 8g carb Oikos Triple Zero [place] Nonfat Yogurt 1 single svg - 15g protein AND 7g carb :ratio, KETO Friendly Dairy Snack 1 single svg - 15g protein AND 2g carb :ratio Protein 1 single svg - 25g protein AND 8g carb Two Good Lowfat [place] Yogurt, [place], Lower Sugar - 12g protein AND 2g carb Yoplait Protein 1 single svg 15g protein AND 5g carb Dairy Free - [place] unsweetened [place] almond/soy 15g protein AND 3g carb Dairy Free - True Goodness by [facility] coconut-based yogurt alternative 1 g protein [...] Cream Cheese 1.7g protein AND 1.2g carb MetaCert whipped [place] cream cheese (WM) 2 T 3g protein 2g carb Feta 4g protein AND 1.2g carb Mozzarella 6.3g protein AND 0.6g carb Parmesan 10g protein AND 0.9g carb Gabonese 7.6g protein AND 1.5g carb Cottage Cheese 1/2 c Breakstone 2% 13g protein 7g carb Kayleigh 2% 13g protein 5 g carb Good Culture 2% 14g protein 3g carb Lactaid 13g protein 5g carb Ma?s Low Fat 12g protein AND 4g carb Legumes Lentils ? cup 9g protein AND 20g carb Ann beans ? cup 7g protein AND 20g carb Kidney, Black, [place], Cannellini beans ? cup 8g protein AND 20g carb Chickpeas 1/2 c 6g protein AND 15g carb Soybeans 1/2 c 14g complete protein AND 8.5g carb A (more content not included)... Normal [facility] CNOVon 11-29-2024 CNOV Office Visit (OBGYWM ) FOREST NGUYEN ([id number]) 1985 F Date Time Provider Department 11/29/24 1:30 PM JACLYN IVORY During your visit today, we recorded the following information about you: Pulse Blood pressure Weight Last Period 92/minute 152/97 78.5 kg 11/16/24 Jaclyn Ivory APRN.[facility] 11/29/2024 2:05 PM Addendum - Whole food [...] oz is 28 gm protein Beef, Chicken, [place], Pork, Duran 1 oz 7g Fish, Tuna [...] protein AND 2 carb Protein AND carbs Beef/[place] Jerky 1 oz dried 10-15g protein - [...] oz -13 g protein AND 6g carb [place]er yogurt Full Fat [place] Yogurt 1 cup - 20.4g protein AND 9.1g carb 2% [place] Yogurt 1 cup - 22.7g protein AND 9.1g carb 0% (fat-free) [place] Yogurt - 1 cup 24g protein AND 9.3g carb Aldi Protein [place] yogurt single svg - 13/g15g protein AND 7g carb Chobani Zero Sugar single svg: - 12g protein AND 5g carb Chobani drinkable 15g, 20g and 30g protein AND 18 carb Dannon [place] Light + Fit 1 single svg - 12g protein AND 9g carb Oikos Pro single svg - 20g protein AND 8g carb Oikos Triple Zero [place] Nonfat Yogurt 1 single svg - 15g protein AND 7g carb Oikos Pro drinkable yogurt 1 single svg - 23 g protein AND 8 g carb :ratio, KETO Friendly Dairy Snack 1 single svg - 15g protein AND 2g carb :ratio Protein 1 single svg - 25g protein AND 8g carb Two Good Lowfat [place] Yogurt, [place], Lower Sugar - 12g protein AND 2g carb Yoplait Protein 1 single svg 15gm protein AND 5gm carb Dairy Free - [place] unsweetened [place] almond/soy 15 gm protein AND 3 gm [...] carb Parmesan 10g protein AND 0.9g carb Gabonese 7.6g protein AND 1.5g carb Cottage Cheese 1/2 c Breakstone 2% 13g protein 7g carb Kayleigh 2% 13g protein 5 g carb Good Culture 2% 14g protein 3g carb Ma?s Low Fat 12g protein AND 4g carb Legumes Lentils ? cup 9g protein AND 20g carb Ann beans ? cup 7g protein AND 20g carb Kidney, Black, [place], Cannellini beans ? cup 8g protein AND 20g carb Soybeans 1/2 c 14g complete protein AND 8.5g carb [place] milk, unsweetened 8 oz 1g protein AND 2g carb Soy milk 8 oz 3.5g protein AND 1.6g carb Tofu 1/2 cup 10g protein AND 2.3g carb Peanut butter, natural 2 Tbsp 7-8g protein AND 4g net carbs, 190 calories PB2 powder 2 Tbsp 6g protein AND 5g carb Nuts and Seeds per oz Almonds - 5.9g protein AND 6.1g carb [place] Nuts - 4.0g protein AND 3.4g carb [...] Seeds - 6.9g protein AND 5g carb [place] Seeds - 5.8g protein AND 5.6g carb Walnuts - 4.3g protein AND 3.8g carb Edamame Beans (soyb (more content not included)... Normal [facility] CNOVon 10-31-2024 CNOV Office Visit (OBGYWM ) WENDYFOREST ([id number]) 1985 F Date Time Provider Department 10/31/24 7:00 AM JACLYN IVORY During your visit today, we recorded the following information about you: Pulse Blood pressure Weight Last Period 98/minute 142/88 78.9 kg 10/17/24 Jaclyn Ivory APRN.CNP 10/31/2024 11:19 AM Signed Some documentation [...] shake at 0730 makes her hungry around [id number] Stopped coffee in am and sweet tea [...] - SKIP/ WE if did not eat [employer]'s RB sandwich with sauce or leftovers S - none D - 7-8 pm lasagne or tacos or sausage rice casserole or teriyaki chicken and rice or grilled meat/baked potato with tea with SF drink mixes. eats out 3-4 times a week Chipotle - Steak, white rice, black beans, s cream, cheese, corn tomatoes, chips, sweet tea Subway - 6 in wheat Lao parra ve sweet tea Red Lobster - shrimp scampi, 2 biscuits, occas Anshul salad, sweet tea Green [place] - chicken fingers, fries or smothered grilled [...] of sugar sweetened beverages, and skip meals. 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 Not hungry, gets full easily, stays full for up to 6 hours. 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 no Work-related activity:Sedentary. 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 Sleep: [...] tablet 1 (more content not included)... Normal [facility] CBC panel Auto (Bld)on 10-02 Erythrocyte distribution width (RBC) [Ratio] 14.9 % 11.5 - 15.0 % [facility] Hematocrit (Bld) [Volume fraction] 40.1 % 36.0 - 46.0 % [facility] Hemoglobin (Bld) [Mass/Vol] 13.1 g/dL 11.5 - 15.5 g/dL [facility] Interpretation and review of laboratory results Abnormal [facility] MCH (RBC) [Entitic mass] 23.9 pg Low 26. 0 - 34.0 pg [facility] MCHC (RBC) [Mass/Vol] 32.7 g/dL 30.5 - 36.0 g/dL [facility] MCV (RBC) [Entitic vol] 73 fL Low 80.0 - 100.0 fL [facility] Nucleated RBC (Bld) [#/Vol] NINF [facility] Platelet mean volume (Bld) [Entitic vol] 10.1 fL 9.0 - 12.7 fL [facility] Platelets (Bld) [#/Vol] 266 10*3/uL [facility] RBC (Bld) [#/Vol] 5.49 10*6/uL High 3.90 - 5.20 m/uL [facility] WBC (Bld) [#/Vol] 7.44 10*3/uL [facility] Erythrocyte distribution width (RBC) [Ratio] 14.9 % Normal 11.5-15.0 [facility] Comment on above: Order Comment: Speci men Type: FLUID SPECIMEN Ordering Facility: [facility] Address: [address] [place] [address] Performed By: #### L [id number] #### [facility] CLIA [id number] [address] [place] [address] [place] Hematocrit (Bld) [Volume fraction] 40.1 % Normal 36.0-46.0 [facility] Comment on above: Order Comment: Speci men Type: FLUID SPECIMEN Ordering Facility: [facility] Address: [address] [place] [address] Performed By: #### L [id number] #### [facility] CLIA [id number] [address] [place] [address] [place] Hemoglobin (Bld) [Mass/Vol] 13.1 g/dL Normal 11.5-15. 5 [facility] Comment on above: Order Comment: Speci men Type: FLUID SPECIMEN Ordering Facility: [facility] Address: [address] [place] [address] Performed By: #### L [id number] #### [facility] CLIA [id number] [address] [place] [address] [place] MCH (RBC) [Entitic mass] 23.9 pg Low 26.0-34.0 [facility] Comment on above: Order Comment: Speci men Type: FLUID SPECIMEN Ordering Facility: [facility] Address: [address] [place] [address] Performed By: #### L [id number] #### [facility] CLIA [id number] [address] [place] [address] [place] MCHC (RBC) [Mass/Vol] 32.7 g/dL Normal 30.5-36.0 [facility] Comment on above: Order Comment: Speci men Type: FLUID SPECIMEN Ordering Facility: [facility] Address: [address] [place] [address] Performed By: #### L [id number] #### [facility] CLIA [id number] [address] [place] [address] [place] MCV (RBC) [Entitic vol] 73.0 fL Low 80.0-100.0 [facility] Comment on above: Order Comment: Speci men Type: FLUID SPECIMEN Ordering Facility: [facility] Address: [address] [place] [address] Performed By: #### L [id number] #### [facility] CLIA [id number] [address] [place] [address] [place] Nucleated RBC (Bld) [#/Vol] 10*3/uL Normal <0.01 [facility] Comment on above: Order Comment: Speci men Type: FLUID SPECIMEN Ordering Facility: [facility] Address: [address] [place] [address] Performed By: #### L [id number] #### [facility] CLIA [id number] [address] [place] [address] [place] Platelet mean volume (Bld) [Entitic vol] 10.1 fL Normal 9.0-12.7 [facility] Comment on above: Order Comment: Speci men Type: FLUID SPECIMEN Ordering Facility: [facility] Address: [address] [place] [address] Performed By: #### L [id number] #### [facility] CLIA [id number] [address] [place] [address] [place] Platelets (Bld) [#/Vol] 266 10*3/uL Normal 150-400 [facility] Comment on above: Order Comment: Speci men Type: FLUID SPECIMEN Ordering Facility: [facility] Address: [address] [place] [address] Performed By: #### L [id number] #### [facility] CLIA [id number] [address] [place] [address] [place] RBC (Bld) [#/Vol] 5.49 10*6/uL High 3.90-5.20 [facility] Comment on above: Order Comment: Speci men Type: FLUID SPECIMEN Ordering Facility: [facility] Address: [address] [place] [address] Performed By: #### L [id number] #### [facility] CLIA [id number] [address] [place] [address] [place] WBC (Bld) [#/Vol] 7.44 10*3/uL Normal 3.70-11.00 [facility] Comment on above: Order Comment: Speci men Type: FLUID SPECIMEN Ordering Facility: [facility] Address: [address] [place] [address] Performed By: #### L [id number] #### [facility] CLIA [id number] [address] [place] [address] [place] CNOVon 10-02-2024 CNOV Office Visit (OBGYWM ) FOREST NGUYEN ([id number]) 1985 F Date Time Provider Department 10/02/24 8:00 AM JACLYN IVORY During your visit today, we recorded the following information about you: Pulse Blood pressure Weight Height 97/minute 154/98 77.1 kg 1.5 m Last Period 09/17/24 Jaclyn Ivory APRN.[facility] 10/02/2024 10:52 AM Signed [...] sweet tea [employer] - 6 in wheat Lao parra veg sweet tea Red Lobster - shrimp scampi, 2 biscuits, occas Anshul salad, sweet tea Green [place] - chicken fingers, fries or smothered grilled [...] of sugar sweetened beverages, and skip meals. 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 Not hungry, gets full easily, stays full for up to 6 hours. Eating Disorder no Cravings: salty, crunchy Sleep Duration: 6-7 hours. 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 Cause:Work [...] costly. Maude (more content not included)... Normal [facility] Comprehensive metabolic 2000 panelOrdered By: Renetta Duran on 10-02-2024 Albumin [Mass/Vol] 4.6 g/dL 3.9 - 4.9 g/dL [facility] ALP [Catalytic activity/Vol] 74 U/L 34 - 123 U/L [facility] ALT [Catalytic activity/Vol] 26 U/L 7 - 38 U/L [facility] Anion gap [Moles/Vol] 12 mmol/L 8 - 15 mmol/L [facility] AST [Catalytic activity/Vol] 19 U/L 13 - 35 U/L [facility] Bilirubin [Mass/Vol] 0.2 mg/dL 0.2 - 1 .3 mg/dL [facility] Calcium [Mass/Vol] 9.7 mg/dL 8.5 - 10. 2 mg/dL [facility] Chloride [Moles/Vol] 104 mmol/L 98 - 10 7 mmol/L [facility] CO2 [Moles/Vol] 21 mmol/L Low 22 - 30 mmol/L [facility] Creatinine [Mass/Vol] 0.59 mg/dL 0.58 - 0.96 mg/dL [facility] GFR/1.73 sq M.predicted among non-blacks MDRD (S/P/Bld) [Vol rate/Area] 119 mL/min/{1.73_m2} - [facility] Comment on above: Estimated Glomerular Filtration Rate [...] [Mass/Vol] 97 mg/dL 74 - 99 mg/dL [facility] Comment on above: The [place] Diabete s Association (ADA) provides guidance for [...] Standards of Medical Care in Diabetes 2016, [place] Diabetes Association. Diabetes Care. 2016.39(Suppl 1). Interpretation and review of laboratory results Abnormal [facility] Potassium [Moles/Vol] 3.8 mmol/L 3.7 - 5.1 mmol/L [facility] Protein [Mass/Vol] 7.6 g/dL 6.3 - 8.0 g/dL [facility] Sodium [Moles/Vol] 137 mmol/L 136 - 144 mmol/L [facility] Urea nitrogen [Mass/Vol] 15 mg/dL 7 - 21 mg/dL [facility] Comprehensive metabolic 2000 panelon 10-02-2024 Albumin [Mass/Vol] 4.6 g/dL Normal 3.9-4.9 [facility] Comment on above: Order Comment: Speci men Type: FLUID SPECIMEN Ordering Facility: [facility] Address: [address] [place] [address] Performed By: #### L [id number] #### [facility] CLIA [id number] [address] [place] [address] [place] ALP [Catalytic activity/Vol] 74 U/L Normal 34-123 [facility] Comment on above: Order Comment: Speci men Type: FLUID SPECIMEN Ordering Facility: [facility] Address: [address] [place] [address] Performed By: #### L [id number] #### [facility] CLIA [id number] [address] [place] [address] [place] ALT [Catalytic activity/Vol] 26 U/L Normal 7-38 [facility] Comment on above: Order Comment: Speci men Type: FLUID SPECIMEN Ordering Facility: [facility] Address: [address] [place] [address] Performed By: #### L [id number] #### [facility] CLIA [id number] [address] [place] [address] [place] Anion gap [Moles/Vol] 12 mmol/L Normal 8-15 [facility] Comment on above: Order Comment: Speci men Type: FLUID SPECIMEN Ordering Facility: [facility] Address: [address] [place] [address] Performed By: #### L [id number] #### [facility] CLIA [id number] [address] [place] [address] [place] AST [Catalytic activity/Vol] 19 U/L Normal 13-35 [facility] Comment on above: Order Comment: Speci men Type: FLUID SPECIMEN Ordering Facility: [facility] Address: [address] [place] [address] Performed By: #### L [id number] #### [facility] CLIA [id number] [address] [place] [address] [place] Bilirubin [Mass/Vol] 0.2 mg/dL Normal 0.2-1.3 [facility] Comment on above: Order Comment: Speci men Type: FLUID SPECIMEN Ordering Facility: [facility] Address: [address] [place] [address] Performed By: #### L [id number] #### [facility] CLIA [id number] [address] [place] [address] [place] Calcium [Mass/Vol] 9.7 mg/dL Normal 8.5-10.2 [facility] Comment on above: Order Comment: Speci men Type: FLUID SPECIMEN Ordering Facility: [facility] Address: [address] [place] [address] Performed By: #### L [id number] #### [facility] CLIA [id number] [address] [place] [address] [place] Chloride [Moles/Vol] 104 mmol/L Normal 98-107 [facility] Comment on above: Order Comment: Speci men Type: FLUID SPECIMEN Ordering Facility: [facility] Address: [address] [place] [address] Performed By: #### L [id number] #### [facility] CLIA [id number] [address] [place] [address] [place] CO2 [Moles/Vol] 21 mmol/L Low 22-30 [facility] Comment on above: Order Comment: Speci men Type: FLUID SPECIMEN Ordering Facility: [facility] Address: [address] [place] [address] Performed By: #### L [id number] #### [facility] CLIA [id number] [address] [place] [address] [place] Creatinine [Mass/Vol] 0.59 mg/dL Normal 0.58-0.96 [facility] Comment on above: Order Comment: Speci men Type: FLUID SPECIMEN Ordering Facility: [facility] Address: [address] [place] [address] Performed By: #### L [id number] #### [facility] CLIA [id number] [address] [place] [address] [place] Creatinine and Glomerular filtration rate.predicted panel (S/P/Bld) 119 mL/min/1.73m??? Normal >=60 [facility] Comment on above: Order Comment: Speci men Type: FLUID SPECIMEN Ordering Facility: [facility] Address: [address] [place] [address] Result Comment: Silvia mated Glomerular Filtration Rate [...] reflect actual GFR. Performed By: #### L [id number] #### [facility] CLIA [id number] [address] [place] [address] [place] Glucose [Mass/Vol] 97 mg/dL Normal 74-99 [facility] Comment on above: Order Comment: Speci men Type: FLUID SPECIMEN Ordering Facility: [facility] Address: [address] [place] [address] Result Comment: The [place] Diabetes Association (ADA) provides guidance for cutoff [...] Standards of Medical Care in Diabetes 2016, [place] Diabetes Association. Diabetes Care. 2016.39(Suppl 1). Performed By: #### L [id number] #### [facility] CLIA [id number] [address] [place] [address] [place] Potassium [Moles/Vol] 3.8 mmol/L Normal 3.7-5.1 [facility] Comment on above: Order Comment: Speci men Type: FLUID SPECIMEN Ordering Facility: [facility] Address: [address] [place] [address] Performed By: #### L [id number] #### [facility] CLIA [id number] [address] [place] [address] [place] Protein [Mass/Vol] 7.6 g/dL Normal 6.3-8.0 [facility] Comment on above: Order Comment: Speci men Type: FLUID SPECIMEN Ordering Facility: [facility] Address: [address] [place] [address] Performed By: #### L [id number] #### [facility] CLIA [id number] [address] [place] [address] [place] Sodium [Moles/Vol] 137 mmol/L Normal 136-144 [facility] Comment on above: Order Comment: Speci men Type: FLUID SPECIMEN Ordering Facility: [facility] Address: [address] [place] [address] Performed By: #### L [id number] #### [facility] CLIA [id number] [address] [place] [address] [place] Urea nitrogen [Mass/Vol] 15 mg/dL Normal 7-21 [facility] Comment on above: Order Comment: Shahnazi men Type: FLUID SPECIMEN Ordering Facility: [facility] Address: [address] [place] [address] Performed By: #### L [id number] #### [facility] CLIA [id number] [address] [place] [address] [place] HbA1c (Bld)on 10-02-2024 Average glucose Estimated from glycated hemoglobin (Bld) [Mass/Vol] 88 mg/dL Normal [facility] Comment on above: Order Comment: Shahnazi men Type: BLOOD SPECIMEN Ordering Facility: [facility] Address: [address] [place] [address] Result Comment: eAG: (Estimated average glucose) is a calculated value from HgbA1c and is screening representative of the average blood glucose level in the last 2-3 month period. Performed By: #### 5 [id number] #### [facility] CLIA [id number] [address] [place] [address] [place] HbA1c (Bld) [Mass fraction] 4.7 % Normal 4.3-5.6 [facility] Comment on above: Order Comment: Shahnazi men Type: BLOOD SPECIMEN Ordering Facility: [facility] Address: [address] [place] [address] Result Comment: [place] Diabetes Association guidelines indicate that patients with HgbA1c in the range 5.7-6.4% are at increased risk for development of diabetes, and intervention by lifestyle modification may be beneficial. HgbA1c greater or equal to 6.5% is considered diagnostic of diabetes. Performed By: #### 5 [id number] #### [facility] CLIA [id number] [address] [place] [address] [place] Insulin SerPl-aCncon 2 025 Insulin Qn 78.7 uU/mL High 2.6-24.9 [facility] Comment on above: Order Comment: Speci men Type: FLUID SPECIMEN Ordering Facility: [facility] Address: [address] [place] [address] Performed By: #### L [id number] #### [facility] CLIA [id number] [address] [place] [address] [place] Lipid 1996 panelon 5 Cholesterol [Mass/Vol] 189 mg/dL Normal <200 [facility] Comment on above: Order Comment: Kathia men Type: FLUID SPECIMEN Ordering Facility: [facility] Address: [address] [place] [address] Result Comment: <200 mg/dL, Desirable 200-239 mg/dL, Borderline high >239 mg/dL, High Performed By: #### L [id number] #### [facility] CLIA [id number] [address] [place] [address] [place] Cholesterol in HDL [Mass/Vol] 50 mg/dL Normal >39 [facility] Comment on above: Order Comment: Speci men Type: FLUID SPECIMEN Ordering Facility: [facility] Address: [address] [place] [address] Result Comment: 40-5 9 mg/dL, Acceptable >59 mg/dL, High: Negative risk factor for coronary heart disease <40 mg/dL, Low: Positive risk factor for coronary heart disease Performed By: #### L [id number] #### [facility] CLIA [id number] [address] [place] [address] [place] Cholesterol in LDL [Mass/Vol] 91 mg/dL Normal <100 [facility] Comment on above: Order Comment: Speci men Type: FLUID SPECIMEN Ordering Facility: [facility] Address: [address] [place] [address] Result Comment: <100 mg/dL, Optimal 100-129 mg/dL, Near optimal/above optimal 130-159 mg/dL, Borderline high 160-189 mg/dL, High >189 mg/dL, Very high Secondary prevention optimal LDL Cholesterol levels are recommended to be < 70 mg/dL Performed By: #### L [id number] #### [facility] CLIA [id number] [address] [place] [address] [place] Cholesterol in LDL/Cholesterol in HDL [Mass ratio] 1.82 {ratio} Normal <2.54 [facility] Comment on above: Order Comment: Shahnazi men Type: FLUID SPECIMEN Ordering Facility: [facility] Address: [address] [place] [address] Result Comment: Tip acuna: 1. National Cholesterol Education Program ATP III Guideline At-A-Glance Quick Desk Reference: National Heart, Lung, and Blood [place]. National Institutes of Health. 2001: NIH Publication No. 01-3305. 2. An International Atherosclerosis Society position paper: global recommendations for the management of dyslipidemia: executive summary, Atherosclerosis. 2014: 232(2):410-413. Performed By: #### L [id number] #### [facility] CLIA [id number] [address] [place] [address] [place] Cholesterol in VLDL [Mass/Vol] 48 mg/dL High <30 [facility] Comment on above: Order Comment: Shahnazi men Type: FLUID SPECIMEN Ordering Facility: [facility] Address: [address] [place] [address] Performed By: #### L [id number] #### [facility] CLIA [id number] [address] [place] [address] [place] Cholesterol non HDL [Mass/Vol] 139 mg/dL High <130 [facility] Comment on above: Order Comment: Speci men Type: FLUID SPECIMEN Ordering Facility: [facility] Address: [address] [place] [address] Result Comment: <130 mg/dL, Optimal 130-159 mg/dL, Near optimal/above optimal 160-189 mg/dL, Borderline high 190-219 mg/dL, High >219 mg/dL, Very high Secondary prevention optimal non HDL Cholesterol levels are recommended to be <100 mg/dL Performed By: #### L [id number] #### [facility] CLIA [id number] [address] [place] [address] [place] Cholesterol.total/Cholester ol in HDL [Mass ratio] 3.78 {ratio} Normal <5.10 [facility] Comment on above: Order Comment: Shahnazi men Type: FLUID SPECIMEN Ordering Facility: [facility] Address: [address] [place] [address] Performed By: #### L [id number] #### [facility] CLIA [id number] [address] [place] [address] [place] FASTING TIME 12 hrs Normal [facility] Comment on above: Order Comment: Speci men Type: FLUID SPECIMEN Ordering Facility: [facility] Address: [address] [place] [address] Performed By: #### L [id number] #### [facility] CLIA [id number] [address] [place] [address] [place] Triglyceride [Mass/Vol] 238 mg/dL High <150 [facility] Comment on above: Order Comment: Speci men Type: FLUID SPECIMEN Ordering Facility: [facility] Address: [address] [place] [address] Result Comment: <150 mg/dL, Normal 150-199 mg/dL, Borderline high 200-499 mg/dL, High >499 mg/dL, Very high Performed By: #### L [id number] #### [facility] CLIA [id number] [address] [place] [address] [place] CNOVon 06-13-2024 CNOV Office Visit (OBGYWM ) SURESHFOREST DUPONT ([id number]) 1985 F Date Time Provider Department 06/13/24 [...] L1 SAB0 IAB0 Ectopic0 Multiple0 Live Births1 Senior Program Analyst History LMP: 05/29/2024 (Exact Date), Having periods Age at Menarche: Age at First : Age at Menopause: Senior Program Analyst History Comments: Sexual Activity: Yes; Male Contraception: [...] discussed with the Patient or Patient's Authorized Cloth Edge Singer. As applicable, any other physician, advance practice provider, medical student, or other health professional student that will be observing or involved in the sensitive examination for educational or training purposes was discussed with the Patient or Authorized Cloth Edge Singer. The Patient or Authorized Cloth Edge Singer has agreed to proceed with the sensitive [...] external genitalia normal, normal Bartholin's glands, urethra, Windber's glands, no vulvar lesions, no cervical lesions, [...] one year or sooner as needed Michael L Je, MD Allergies As of Date: 06/13/2024 (No Known Allergies) Date Reviewed: 06/13/2024 Reviewed by: Michael Milligan MD - Fully Assessed Reason for Visit: Yearly Exam [187] Primary Visit Diagnosis:Encounter for gynecological examination (general) (routine) without abnormal findings (more content not included)... Normal [facility] HIGH RISK HUMAN PAPILLOMA DA (HPV), PCR FOR DETECTION AND GENOTYPINGon 06-13-2024 HPV 16 Ag Ql (Unsp spec) Not detected Normal Not detected [facility] Comment on above: Order Comment: Speci men Type: FLUID SPECIMEN Ordering Facility: [facility] Address: [address] [place] [address] Performed By: #### L [id number] #### [facility] CLIA [id number] [address] [place] [address] [place] HPV 18 Ag Ql (Unsp spec) Not detected Normal Not detected [facility] Comment on above: Order Comment: Speci men Type: FLUID SPECIMEN Ordering Facility: [facility] Address: [address] [place] [address] Performed By: #### L [id number] #### [facility] CLIA [id number] [address] [place] [address] [place] HPV 31+33+35+39+45+51+52+56+58+ 59+66+68 DNA VINH+probe Ql (Cvx) Not detected Normal Not detected [facility] Comment on above: Order Comment: Speci men Type: FLUID SPECIMEN Ordering Facility: [facility] Address: [address] [place] [address] Result Comment: High Risk HPV Other Type includes HPV types 31, 33, 35, 39, 45, 51, 52, 56, 58, 59, 66 and 68. Performed By: #### L [id number] #### [facility] CLIA [id number] [address] [place] [address] [place] PAP TESTon 10-30-2024 ADEQUACY Satisfactory for interpretation. Normal [facility] Comment on above: Order Comment: Speci men Type: FLUID SPECIMEN Ordering Facility: [facility] Address: [address] [place] [address] Performed By: #### L [id number] #### [facility] CLIA [id number] [address] [place] [address] [place] CASE REPORT Normal [facility] Comment on above: Order Comment: Speci men Type: FLUID SPECIMEN Ordering Facility: [facility] Address: [address] [place] [address] Result Comment: Gyne cologic Cytology Report Case: [id number] Authorizing Provider: Michael Milligan MD Collected: 06/13/2024 03:02 PM Ordering Location: OB/Gynecology Received: 06/13/2024 05:16 PM First Screen: [place], [place], CT, ASCP Specimen: Pap Test, ThinPrep, Cervix Performed By: #### L [id number] #### [facility] CLIA [id number] [address] [place] [address] [place] CLINICAL HISTORY, CYTOLOGY, GREENHOUSE TECHNICIAN Routine Exam Normal [facility] Comment on above: Order Comment: Speci men Type: FLUID SPECIMEN Ordering Facility: [facility] Address: [address] [place] [address] Performed By: #### L [id number] #### [facility] CLIA [id number] [address] [place] [address] [place] FINAL PERFORMING LAB Normal [facility] Comment on above: Order Comment: Speci men Type: FLUID SPECIMEN Ordering Facility: [facility] Address: [address] [place] [address] Result Comment: Tech nical component, licensed occupational therapy assistant screening performed at [facility], [address] [place] [address] CLIA# [id number] Diagnostic interpretation performed at [facility], [address] [place] [address] CLIA# [id number] Air Traffic Control Supervisor: Yefri Lomeli M.D. Performed By: #### L [id number] #### [facility] CLIA [id number] [address] [place] [address] [place] INTERPRETATION, CYTOLOGY, GREENHOUSE TECHNICIAN Normal [facility] Comment on above: Order Comment: Speci men Type: FLUID SPECIMEN Ordering Facility: [facility] Address: [address] [place] [address] Result Comment: Nega tive for intraepithelial lesion or malignancy. Performed By: #### L [id number] #### [facility] CLIA [id number] [address] [place] [address] [place] LMP 05/29/2024 Normal [facility] Comment on above: Order Comment: Speci men Type: FLUID SPECIMEN Ordering Facility: [facility] Address: [address] [place] [address] Performed By: #### L [id number] #### [facility] CLIA [id number] [address] [place] [address] [place] PAP DISCLAIMER COMMENT The Pap Smear is a screening test for cervical cancer. False negative results occur with all screening tests, emphasizing the need for rescreening at recommended intervals, and clinical correlation. Normal [facility] Comment on above: Order Comment: Speci men Type: FLUID SPECIMEN Ordering Facility: [facility] Address: [address] [place] [address] Performed By: #### L [id number] #### [facility] CLIA [id number] [address] [place] [address] [place] PAP ACCOUNTING PROFESSOR COMMENT This specimen has been analyzed by the ThinPrep Imaging System, an automated imaging and review system, which assists the laboratory in evaluating cells on ThinPrep Pap tests. Following automated imaging, selected renteria from every slide are reviewed by a licensed occupational therapy assistant. Normal [facility] Comment on above: Order Comment: Speci men Type: FLUID SPECIMEN Ordering Facility: [facility] Address: [address] [place] [address] Performed By: #### L [id number] #### [facility] CLIA [id number] [address] [place], [place] [address] [address] [place] ANES POSTPROC EVALon 023 ANES POSTPROC EVAL HNO ID: [id number] Author: Tucker Simmons MD Service: Anesthesiology Author Type: Anesthesiologist Type: Anesthesia Postprocedure Evaluation Filed: 02/09/2023 2:50 PM Note Text: POST ANESTHESIA EVALUATION NOTE : 1985 Procedure Summary Date: 02/09/23 Room / Location: [facility] Anesthesia Start: 1329 Anesthesia Stop: 1430 Procedures: [...] February 09, 2023 TIME: 2:49 PM CSN: [id number] [facility] ANES PRE-OPon 02-09-2023 ANES PRE-OP HNO ID: [id number] Author: Janie Meraz DO Service: Anesthesiology Author Type: Resident Type: Anesthesia Preprocedure Evaluation Filed: 02/09/2023 12:35 PM Note Text: Attestation signed by Keagan Still DO at 02/09/2023 1:06 PM ATTENDING NOTE: I have evaluated the patient and discussed the management with the resident/PRODUCT ACCOUNTANT/AA. I reviewed the resident/PRODUCT ACCOUNTANT/AA's note as well as the nursing notes and agree with the proposed anesthetic plan. Keagan Still DO 1:06 PM February 09, 2023 ANESTHESIOLOGY DAY OF SURGERY NOTE : 1985 Procedure Information Date/Time: 02/09/23 1315 Scheduled providers: Suzi Watkins DO; Keagan Still DO Procedures: EGD - THERAPEUTIC, EUS, OR TUBE INTERVENTIONS PH HUERTA INSERT OFF [employer] Location: [facility] Estimated body mass index is 36.36 kg/m? [...] and consent discussed: yes. Patient / Responsible Republican agrees to proceed: yes Patient / Surrogate [...] February 09, 2023 TIME: 12:32 PM CSN: [id number] [facility] HISTORY PHYSICALon 3 HISTORY PHYSICAL HNO ID: [id number] Author: Trinidad Christie PA-C Service: General Surgery Author Type: Physician Cupola Liner Helper Type: HANDP Filed: 02/09/2023 12:32 PM Note [...] EGD DIAGNOSTIC Medication reconciliation list reviewed in [facility]. Past medical history, past surgical history, social history and family history reviewed and updated in [facility]. ALLERGIES No Known Allergies See [facility] for vitals BP 124/88 Pulse 86 Temp [...] Record dated: 01/11/23 done by Elizabeth Dias APRN.BULK SEALER OPERATOR SIGNATURE: Trinidad Christie PA-C PATIENT NAME: Forest Nguyen DATE: February 09, 2023 TIME: 12:31 PM [facility] Upper GI endoscopyon 02-09- 023 Upper GI endoscopy [facility] Gastrointestinal Endoscopy Patient Name: Forest Nguyen Procedure Date: 02/09/2023 12:21 PM Date [...] by the physician, the nurse and the digitizer operator in the pre-procedure area in the endoscopy [...] for emergenci (more content not included)... Normal [facility] NURSING PROGon 02-04-2023 NURSING PROG HNO ID: [id number] Author: Weston Reyes RN Service: ? Author Type: Registered Nurse Type: Nursing Progress Note Filed: 02/04/2023 2:18 PM Note Text: [facility] ENDOSCOPY PRE PROCEDURE CALL Maury. I'm calling from [facility] endoscopy to provide you with the information for your surgery/procedure tomorrow. Spoke to: voicemail and my chart [facility] (SPDIG[facility] M ([id number]) 1985 F Date Time Provider Department 01/18/23 SUZI WATKINSIG During your visit today, we recorded the [...] Date Reviewed: 01/11/2023 Reviewed by: Elizabeth Dias APRN.BULK SEALER OPERATOR - Fully Assessed Reason for Visit: Patient [...] Encounter Status:Closed by KENA BURROWS on 01/18/23 [facility] Absolute lymphocyte countOrd ered By: Dr. Bob on 2023 Lymphocytes Auto (Unsp spec) [#/Vol] 1.76 10*3/uL 0.83-4.51 [facility] Basophil percentageOrdered B y: Dr. Bob on 2023 Basophil percentage 5-10 SEEN /hpf 0-5 [facility] Basophils/100 WBC (Bld) 0.6 % 0-1 [facility] Chloride [Moles/Vol] 107 mmol/L 98-107 [facility] Eosinophils/100 WBC (Bld) 1.3 % 0-5 [facility] Glucose [Mass/Vol] 93 mg/dL 74-106 [facility] Neutrophils (Bld) [#/Vol] 6.3 10*3/uL 2.0-7.7 [facility] Neutrophils/100 WBC (Bld) 72.9 % 47-70 [facility] Potassium [Moles/Vol] 3.9 mmol/L 3.5-5.1 [facility] Sodium [Moles/Vol] 135 mmol/L 136-145 [facility] WBC (Bld) [#/Vol] 8.7 10*3/uL 4.4-11.0 [facility] Beta hCG serum qualOrdered B y: Dr. Bob on 2023 Beta HCG ( test) Ql Negative [facility] Bilirubin Test strip Ql (U)O rdered By: Dr. Bob on 2023 Bilirubin Ql (U) Negative Negative [facility] Blood erythrocytes count (nu mber/volume)Ordered By: Dr. Bob on 2023 RBC (Bld) [#/Vol] 5.87 10*6/uL 4.2-5.4 [facility] Blood hemoglobin measurement (mass/volume)Ordered By: Dr. Bob on 2023 Hemoglobin (Bld) [Mass/Vol] 14.6 g/dL 12.0-15. 0 [facility] Blood lymphocytes/100 leukoc ytesOrdered By: Dr. Bob on 2023 Lymphocytes/100 WBC (Bld) 20.2 % 19-41 [facility] Blood monocytes/100 leukocyt esOrdered By: Dr. Bob on 2023 Monocytes/100 WBC (Bld) 4.8 % 0-10 [facility] Blood platelet mean volumeOr dered By: Dr. Bob on 2023 Platelet mean volume (Bld) [Entitic vol] 10.3 fL 6.2-12.0 [facility] Determination of erythrocyte mean corpuscular volume (MCV)Ordered By: Dr. Bob on 2023 MCV (RBC) [Entitic vol] 77.0 fL 81-99 [facility] Hematocrit Auto (Bld) [Volum e fraction]Ordered By: Dr. Bob on 2023 Hematocrit (Bld) [Volume fraction] 45.2 % 37-47 [facility] Ketones Test strip Ql (U)Ord ered By: Dr. Bob on 2023 Ketones Ql (U) 15 mg/dl Negative [facility] Laboratory - Chemistry and C hemistry - challengeOrdered By: Dr. Bob on 2023 CO2 [Moles/Vol] 24.0 mmol/L 21.0-32.0 [facility] Urea nitrogen/Creatinine [Mass ratio] 15.2 mg/mg 10-20 [facility] Laboratory - Hematology and Cell countsOrdered By: Dr. Bob on 06-05-2023 Erythrocyte distribution width (RBC) [Entitic vol] 37.4 fL 35.1-43.9 [facility] Erythrocyte distribution width (RBC) [Ratio] 13.6 % 11.6-14.6 [facility] Immature granulocytes/100 WBC (Bld) 0.200 % 0.0-0.9 [facility] Comment on above: IG% - Immature Granu locytes (promyelocytes, myelocytes and metamyelocytes) > 1% indicates that a LEFT SHIFT is Present. MCH (RBC) [Entitic mass] 24.9 pg 27.0-32.0 [facility] Nucleated RBC/100 WBC (Bld) [Ratio] 0 % 0-5 [facility] MCHC Auto (RBC) [Mass/Vol]Or dered By: Dr. Bob on 2023 MCHC (RBC) [Mass/Vol] 32.3 g/dL 32-36 [facility] Mucus LM Ql (Urine sed)Order ed By: Dr. Bob on 2023 Mucus Ql (Urine sed) 0 SEEN /hpf [facility] Nitrite Test strip Ql (U)Ord ered By: Dr. Bob on 2023 Nitrite Ql (U) Negative Negative [facility] No Panel InformationOrdered By: Dr. Bob on 2023 Estimated Creatinine Clearance Calc 136.42 ml/min [facility] Estimated GFR (MDRD) Amer 118 mL/min >60 [facility] Comment on above: GFR Calc Estimated GFR (MDRD) Non-Af Amer 97 mL/min >60 [facility] Comment on above: Non- GFR Calc Platelets bldOrdered By: Dr. Bob on 2023 Platelets (Bld) [#/Vol] 308 10*3/uL 150-450 [facility] Protein Test strip Ql (U)Ord ered By: Dr. Bob on 2023 Protein Ql (U) 100 mg/dl Negative [facility] Serum or plasma calcium charu urement (mass/volume)Ordered By: Dr. Bob on 2023 Calcium [Mass/Vol] 9.5 mg/dL 8.5-10.1 [facility] Serum or plasma creatinine m easurement (mass/volume)Ordered By: Dr. Bob on 2023 Creatinine [Mass/Vol] 0.72 mg/dL 0.55-1.02 [facility] Comment on above: The validity of the calculated GFR & GFRAA in patients over 70 years has not been determined. Clinical correlation is essential. Serum or plasma urea nitroge n measurement (mass/volume)Ordered By: Dr. Bob on 2023 Urea nitrogen [Mass/Vol] 11 mg/dL 7-18 [facility] Squamous epithelial cells de tection in urine sediment by light microscopyOrdered By: Dr. Bob on 2023 Epithelial cells.squamous LM Ql (Urine sed) 0-5 SEEN /hpf 5-10 [facility] Thin prep Papanicolaou smear with manual screeningOrdered By: Dr. Bob on 2023 Thin prep Papanicolaou smear with manual screening 4 5-15 [facility] Urine blood detectionOrdered By: Dr. Bob on 2023 RBC Ql (U) 250 /ul Negative [facility] RBC Ql (U) > 100 SEEN /hpf 0-5 [facility] Urine clarityOrdered By: Dr. Bob on 2023 Clarity (U) Cloudy Clear [facility] Urine color determinationOrd ered By: Dr. Bob on 2023 Color (U) Yellow Yellow [facility] Urine glucose detectionOrder ed By: Dr. Bob on 2023 Glucose Ql (U) Normal mg/dl Normal [facility] Urine leukocyte esterase det ection by dipstickOrdered By: Dr. Bob on 2023 Leukocyte esterase Test strip Ql (U) 100 /ul Negative [facility] Urine pHOrdered By: Dr. Ziyad elias on 2023 pH (U) 6.0 [pH] 5.0 - 8.0 [facility] Urine sediment bacteria coun t by microscopy (number/high power field)Ordered By: Dr. Bob on 2023 Bacteria LM.HPF (Urine sed) [#/Area] 1 /[HPF] None Seen [facility] Urine specific gravity measu rementOrdered By: Dr. Bob on 2023 Specific gravity (U) [Rel density] 1.025 1.002-1.03 0 [facility] Urobilinogen Auto test strip Ql (U)Ordered By: Dr. Bob on 2023 Urobilinogen Ql (U) Normal mg/dl Normal [facility] ACETYLCHOLINE REC BINDING AB on 01-06-2023 ACETYLCHOLINE BINDING, QUAL Negative Normal Negative [facility] Comment on above: Order Comment: Speci men Type: BLOOD SPECIMEN Ordering Facility: [facility] Address: [address] [address] Result Comment: Anti -acetylcholine receptor binding antibody test is used as an aid in diagnosis of myasthenia gravis. A negative result cannot exclude myasthenia gravis. Clinical correlation is required. Performed By: #### C ROLANDPL #### [facility] CLIA [id number] [address] [place] [address] [place] Acetylcholine receptor binding Ab (S) [Moles/Vol] <0.02 Normal <0.21 [facility] Comment on above: Order Comment: Speci men Type: BLOOD SPECIMEN Ordering Facility: [facility] Address: [address] [place] [address] Performed By: #### C ROLANDPL #### [facility] CLIA [id number] [address] [place] [address] [place] AMINO ACIDS, PLASMA W/ CONSU LTATIONon 01-06-2023 Alanine [Moles/Vol] 345 umol/L Normal 177-583 [facility] Comment on above: Order Comment: Speci men Type: BLOOD SPECIMEN Ordering Facility: [facility] Address: [address] [address] Performed By: #### C YTOKP #### [facility] CLIA [id number] [address] [place] [address] Alloisoleucine [Moles/Vol] <1 Normal 0-2 [facility] Comment on above: Order Comment: Speci men Type: BLOOD SPECIMEN Ordering Facility: [facility] Address: [address] [place] [address] Performed By: #### C YTOKP #### [facility] [id number] [address] [place] [address] Alpha aminoadipate [Moles/Vol] <1 Normal 0-6 [facility] Comment on above: Order Comment: Speci men Type: BLOOD SPECIMEN Ordering Facility: [facility] Address: [address] [address] Performed By: #### C YTOKP #### [facility] [id number] [address] [place] [address] AMINO ACID CONSULTATION, PLASMA Normal [facility] Comment on above: Order Comment: Speci men Type: BLOOD SPECIMEN Ordering Facility: [facility] Address: [address] [address] Result Comment: This plasma amino acid analysis shows no significant abnormalities. Reference intervals from Andrzej Alejo, George MG, John KADIE, and Soham DK: Biochemical Genetics: A Laboratory Manual, Copyright 1989 by [employer] Reference intervals not established for some amino acids. This test was developed and its performance characteristics determined by [facility]'s [facility] Pathology [facility] [place] ([facility]). It has not been cleared or approved by the FDA. -[facility] is regulated under CLIA as qualified to perform high complexity testing. This test is used for clinical purposes. It should not be regarded as investigational or for research. Performed By: #### C YTOKP #### [facility] [id number] [address] [place] [address] AMINO ACIDS REVIEW, PLASMA Reviewed by Yandel Mcfadden MD, Ph.D ([id number]) [facility] Comment on above: Order Comment: Speci men Type: BLOOD SPECIMEN Ordering Facility: [facility] Address: [address] [address] Performed By: #### C YTOKP #### [facility] [id number] [address] [place] [address] Arginine [Moles/Vol] 49 umol/L Normal 15-128 [facility] Comment on above: Order Comment: Speci men Type: BLOOD SPECIMEN Ordering Facility: [facility] Address: [address] [address] Performed By: #### C YTOKP #### [facility] CLIA [id number] [address] [place] [address] Asparagine [Moles/Vol] 40 umol/L Normal 35-74 [facility] Comment on above: Order Comment: Speci men Type: BLOOD SPECIMEN Ordering Facility: [facility] Address: [address] [address] Performed By: #### C YTOKP #### [facility] [place] [id number] [address] [place] [address] Aspartate [Moles/Vol] 5 umol/L Normal 1-25 [facility] Comment on above: Order Comment: Speci men Type: BLOOD SPECIMEN Ordering Facility: [facility] Address: [address] [address] Performed By: #### C YTOKP #### [facility] [place] [id number] [address] [place] [address] Citrulline [Moles/Vol] 15 umol/L Normal 12-55 [facility] Comment on above: Order Comment: Speci men Type: BLOOD SPECIMEN Ordering Facility: [facility] Address: [address] [place] [address] Performed By: #### C YTOKP #### [facility] [place] [id number] [address] [place] [address] Cystine [Moles/Vol] 42 umol/L Normal 5-82 [facility] Comment on above: Order Comment: Speci men Type: BLOOD SPECIMEN Ordering Facility: [facility] Address: [address] [address] Performed By: #### C YTOKP #### [facility] [place] [id number] [address] [place] [address] Glutamate [Moles/Vol] 67 umol/L Normal 10-131 [facility] Comment on above: Order Comment: Speci men Type: BLOOD SPECIMEN Ordering Facility: [facility] Address: [address] [address] Performed By: #### C YTOKP #### [facility] CLIA [id number] [address] [place] [address] Glutamine [Moles/Vol] 538 umol/L Normal 205-756 [facility] Comment on above: Order Comment: Speci men Type: BLOOD SPECIMEN Ordering Facility: [facility] Address: [address] [place] [address] Performed By: #### C YTOKP #### [facility] CLIA [id number] [address] [place] [address] Glycine [Moles/Vol] 278 umol/L Normal 151-490 [facility] Comment on above: Order Comment: Speci men Type: BLOOD SPECIMEN Ordering Facility: [facility] Address: [address] [place] [address] Performed By: #### C YTOKP #### [facility] CLIA [id number] [address] [place] [address] Histidine [Moles/Vol] 59 umol/L Low 72-124 [facility] Comment on above: Order Comment: Speci men Type: BLOOD SPECIMEN Ordering Facility: [facility] Address: [address] [place] [address] Performed By: #### C YTOKP #### [facility] CLIA [id number] [address] [place] [address] Hydroxylysine [Moles/Vol] <1 High <=0 [facility] Comment on above: Order Comment: Speci men Type: BLOOD SPECIMEN Ordering Facility: [facility] Address: [address] [place] [address] Performed By: #### C YTOKP #### [facility] CLIA [id number] [address] [place] [address] Hydroxyproline [Moles/Vol] 6 umol/L Normal 0-53 [facility] Comment on above: Order Comment: Speci men Type: BLOOD SPECIMEN Ordering Facility: [facility] Address: [address] [place] [address] Performed By: #### C YTOKP #### [facility] CLIA [id number] [address] [place] [address] Isoleucine [Moles/Vol] 67 um/L Normal 30-108 [facility] Comment on above: Order Comment: Speci men Type: BLOOD SPECIMEN Ordering Facility: [facility] Address: [address] [place] [address] Performed By: #### C YTOKP #### [facility] CLIA [id number] [address] [place] [address] Leucine [Moles/Vol] 117 umol/L Normal 72-201 [facility] Comment on above: Order Comment: Speci men Type: BLOOD SPECIMEN Ordering Facility: [facility] Address: [address] [place] [address] Performed By: #### C YTOKP #### [facility] CLIA [id number] [address] [place] [address] Lysine [Moles/Vol] 167 umol/L Normal 116-296 [facility] Comment on above: Order Comment: Speci men Type: BLOOD SPECIMEN Ordering Facility: [facility] Address: [address] [place] [address] Performed By: #### C YTOKP #### [facility] CLIA [id number] [address] [place] [address] Methionine [Moles/Vol] 22 umol/L Normal 10-42 [facility] Comment on above: Order Comment: Speci men Type: BLOOD SPECIMEN Ordering Facility: [facility] Address: [address] [place] [address] Performed By: #### C YTOKP #### [facility] CLIA [id number] [address] [place] [address] Ornithine [Moles/Vol] 45 umol/L Low 48-195 [facility] Comment on above: Order Comment: Speci men Type: BLOOD SPECIMEN Ordering Facility: [facility] Address: [address] [place] [address] Performed By: #### C YTOKP #### [facility] CLIA [id number] [address] [place] [address] Phenylalanine [Moles/Vol] 65 umol/L Normal 35-85 [facility] Comment on above: Order Comment: Speci men Type: BLOOD SPECIMEN Ordering Facility: [facility] Address: [address] [place] [address] Performed By: #### C YTOKP #### [facility] CLIA [id number] [address] [place] [address] Proline [Moles/Vol] 175 umol/L Normal 97-329 [facility] Comment on above: Order Comment: Speci men Type: BLOOD SPECIMEN Ordering Facility: [facility] Address: [address] [place] [address] Performed By: #### C YTOKP #### [facility] CLIA [id number] [address] [place] [address] Sarcosine [Moles/Vol] <1 High <=0 [facility] Comment on above: Order Comment: Speci men Type: BLOOD SPECIMEN Ordering Facility: [facility] Address: [address] [place] [address] Performed By: #### C YTOKP #### [facility] CLIA [id number] [address] [place] [address] Serine [Moles/Vol] 114 umol/L Normal 58-181 [facility] Comment on above: Order Comment: Speci men Type: BLOOD SPECIMEN Ordering Facility: [facility] Address: [address] [place] [address] Performed By: #### C YTOKP #### [facility] CLIA [id number] [address] [place] [address] Taurine [Moles/Vol] 44 umol/L Low 54-210 [facility] Comment on above: Order Comment: Speci men Type: BLOOD SPECIMEN Ordering Facility: [facility] Address: [address] [place] [address] Performed By: #### C YTOKP #### [facility] CLIA [id number] [address] [place] [address] Threonine [Moles/Vol] 134 umol/L Normal 60-225 [facility] Comment on above: Order Comment: Speci men Type: BLOOD SPECIMEN Ordering Facility: [facility] Address: [address] [place] [address] Performed By: #### C YTOKP #### [facility] [id number] [address] [place] [address] Tyrosine [Moles/Vol] 41 umol/L Normal 34-112 [facility] Comment on above: Order Comment: Speci men Type: BLOOD SPECIMEN Ordering Facility: [facility] Address: [address] [place] [address] Performed By: #### C YTOKP #### [facility] [id number] [address] [place] [address] Valine [Moles/Vol] 205 umol/L Normal 119-336 [facility] Comment on above: Order Comment: Speci men Type: BLOOD SPECIMEN Ordering Facility: [facility] Address: [address] [place] [address] Performed By: #### C YTOKP #### [facility] [id number] [address] [place] [address] CARNITINE FREE/TOTAL, PLASMA on 01-06-2023 C0 [Moles/Vol] 20 umol/L Low 22-[address] [facility] Comment on above: Order Comment: Speci men Type: BLOOD SPECIMEN Ordering Facility: [facility] Address: [address] [place] [address] Performed By: #### C ARNPL #### [facility] CLIA [id number] [address] [facility] [id number] [address] [place] C0/Total carnitine [Molar fraction] 0.741 Normal 0.700-0.90 0 [facility] Comment on above: Order Comment: Speci men Type: BLOOD SPECIMEN Ordering Facility: [facility] Address: [address] [place] [address] Result Comment: NOTE : The determination of [...] determined by the Pathology and Laboratory Medicine [place] at the [facility]. The U.S. Food and Drug Administration has not approved or cleared this test, however, FDA clearance or approval is not currently required for clinical use. Performed By: #### C ARNPL #### [facility] CLIA [id number] [address] [place] [address] [place] Carnitine [Moles/Vol] 27 umol/L Normal 27-68 [facility] Comment on above: Order Comment: Speci men Type: BLOOD SPECIMEN Ordering Facility: [facility] Address: [address] [place] [address] Performed By: #### C ARNPL #### [facility] CLIA [id number] [address] [place] [address] [place] CK SerPl-cCncon 01-06-2023 CK [Catalytic activity/Vol] 38 U/L Low 42-196 [facility] Comment on above: Order Comment: Speci men Type: BLOOD SPECIMEN Ordering Facility: [facility] Address: [address] [place] [address] Performed By: #### C ARNPL #### [facility] CLIA [id number] [address] [place] [address] [place] CRP SerPl-mCncon 01-06-2023 CRP [Mass/Vol] mg/L Normal <0.[address] [facility] Comment on above: Order Comment: Speci men Type: BLOOD SPECIMEN Ordering Facility: [facility] Address: [address] [place] [address] Performed By: #### C ARNPL #### [facility] CLIA [id number] [address] [place] [address] [place] CYTOKINE PANEL 13, SERUMon 0 01-06-2023 INTERFERON GAMMA <4.2 Normal <=4.2 [facility] Comment on above: Order Comment: Speci men Type: BLOOD SPECIMEN Ordering Facility: [facility] Address: [address] [place] [address] Performed By: #### C YTOKP #### [facility] CLIA [id number] [address] [place] [address] INTERLEUKIN 1 BETA <6.5 Normal <=6.7 [facility] Comment on above: Order Comment: Speci men Type: BLOOD SPECIMEN Ordering Facility: [facility] Address: [address] [place] [address] Performed By: #### C YTOKP #### [facility] CLIA [id number] [address] [place] [address] INTERLEUKIN 10 <2.8 Normal <=2.[address] [facility] Comment on above: Order Comment: Speci men Type: BLOOD SPECIMEN Ordering Facility: [facility] Address: [address] [place] [address] Performed By: #### C YTOKP #### [facility] CLIA [id number] [address] [place] [address] INTERLEUKIN 12 <1.9 Normal <=1.[address] [facility] Comment on above: Order Comment: Speci men Type: BLOOD SPECIMEN Ordering Facility: [facility] Address: [address] [place] [address] Performed By: #### C YTOKP #### [facility] CLIA [id number] [address] [place] [address] INTERLEUKIN 13 <1.7 Normal <=2.[address] [facility] Comment on above: Order Comment: Speci men Type: BLOOD SPECIMEN Ordering Facility: [facility] Address: [address] [place] [address] Performed By: #### C YTOKP #### [facility] CLIA [id number] [address] [place] [address] INTERLEUKIN 17 <1.4 Normal <=1.[address] [facility] Comment on above: Order Comment: Speci men Type: BLOOD SPECIMEN Ordering Facility: [facility] Address: [address] [address] Performed By: #### C YTOKP #### [facility] CLIA [id number] [address] [place] [address] INTERLEUKIN 2 <2.1 Normal <=2.1 [facility] Comment on above: Order Comment: Speci men Type: BLOOD SPECIMEN Ordering Facility: [facility] Address: [address] [place] [address] Performed By: #### C YTOKP #### [facility] CLIA [id number] [address] [place] [address] INTERLEUKIN 4 (INT4) <2.2 Normal <=2.2 [facility] Comment on above: Order Comment: Speci men Type: BLOOD SPECIMEN Ordering Facility: [facility] Address: [address] [place] [address] Performed By: #### C YTOKP #### [facility] CLIA [id number] [address] [place] [address] INTERLEUKIN 5 <2.1 Normal <=2.1 [facility] Comment on above: Order Comment: Speci men Type: BLOOD SPECIMEN Ordering Facility: [facility] Address: [address] [place] [address] Performed By: #### C YTOKP #### [facility] CLIA [id number] [address] [place] [address] INTERLEUKIN 6 <2.0 Normal <=2.0 [facility] Comment on above: Order Comment: Speci men Type: BLOOD SPECIMEN Ordering Facility: [facility] Address: [address] [address] Performed By: #### C YTOKP #### [facility] CLIA [id number] [address] [place] [address] INTERLEUKIN 8 <3.0 Normal <=3.0 [facility] Comment on above: Order Comment: Speci men Type: BLOOD SPECIMEN Ordering Facility: [facility] Address: [address] [address] Performed By: #### C YTOKP #### [facility] CLIA [id number] [address] [place] [address] INTERLEUKIN-2 RECEPTOR 700.2 pg/mL Normal 175.3 -858. 2 [facility] Comment on above: Order Comment: Speci men Type: BLOOD SPECIMEN Ordering Facility: [facility] Address: [address] [place] [address] Performed By: #### C YTOKP #### [facility] [id number] [address] [place] [address] TUMOR NECROSIS FACTOR - ALPHA 1.7 pg/mL Normal <=7.2 [facility] Comment on above: Order Comment: Speci men Type: BLOOD SPECIMEN Ordering Facility: [facility] Address: [address] [place] [address] Result Comment: INTE RPRETIVE INFORMATION: Cytokines Results are used to understand the pathophysiology of immune, infectious, or inflammatory disorders, or may be used for research purposes. This test was developed and its performance characteristics determined by [employer]. It has not been cleared or approved by the [place] Food and Drug Administration. This test was performed in a CLIA certified laboratory and is intended for clinical purposes. Performed By: [facility] [address] [place] [address] [employer] Supervisor: Silvano Melendrez MD, PhD Performed By: #### C YTOKP #### [facility] [id number] [address] [place] [address] ESR Westergren method (Bld) [Velocity]on 01-06-2023 ESR (Bld) [Velocity] 15 mm/h Normal 0-20 [facility] Comment on above: Order Comment: Speci men Type: BLOOD SPECIMEN Ordering Facility: [facility] Address: [address] [address] Performed By: #### C ARNPL #### [facility] CLIA [id number] [address] [facility] [place] [address] [place] ESTROGEN FRACTION BLon 01-06 ESTRADIOL 89.1 pg/mL Normal [facility] Comment on above: Order Comment: Speci men Type: BLOOD SPECIMEN Ordering Facility: [facility] Address: [address] [place] [address] Result Comment: REFE RENCE INTERVAL: Estradiol by Disability Coordinator For a complete set of all established reference intervals, refer to [employer]/Tests/Pub/[id number]. This test was developed and its performance characteristics determined by [employer]. It has not been cleared or approved by the [place] Food and Drug Administration. This test was performed in a CLIA certified laboratory and is intended for clinical purposes. Performed By: #### BRITTNY LÓPEZ #### [facility] CLIA [id number] [address] [place] [address] ESTROGENS TOTAL 142.2 pg/mL Normal [facility] Comment on above: Order Comment: Speci men Type: BLOOD SPECIMEN Ordering Facility: [facility] Address: [address] [place] [address] Result Comment: Refe rence interval of estrogens (pg/mL) Estrone Estradiol Total Estrogens Early follicular <150.0 30.0-100.0 30.0-250.0 Late follicular 100.0-250.0 100.0-400.0 200.0-650.0 Luteal <200.0 50.0-150.0 50.0-350.0 Post-menopausal 3.0-32.0 2.0-21.0 5.0-52.0 REFERENCE INTERVAL: Estrogens Total Calculation For a complete set of all established reference intervals, refer to [employer]/Tests/Pub/[id number]. Performed By: [facility] [address] [place] [address] [employer] Traffic [employer] Supervisor: Silvano Melendrez MD, PhD Performed By: #### BRITTNY LÓPEZ #### [facility] CLIA [id number] [address] [place] [address] ESTRONE 53.1 pg/mL Normal [facility] Comment on above: Order Comment: Speci men Type: BLOOD SPECIMEN Ordering Facility: [facility] Address: [address] [place] [address] Result Comment: INTERPRETIVE INFORMATION: Estrone by Disability Coordinator For a complete set of all established reference intervals, refer to [employer]/Tests/Pub/[id number]. This test was developed and its performance characteristics determined by [employer] [facility]. It has not been cleared or approved by the US Food and Drug Administration. This test was performed in a CLIA certified laboratory and is intended for clinical purposes. Performed By: #### V BRITTNY SINGLETARY #### [facility] CLIA [id number] [address] [place] [address] GAD65 Ab Ser-aCncon 01-07-20 Glutamate decarboxylase 65 Ab Qn (S) <5.0 Normal <=5.0 [facility] Comment on above: Order Comment: Kathia olsen Type: BLOOD SPECIMEN Ordering Facility: [facility] Address: [address] [place] [address] Result Comment: Anti -glutamic acid decarboxylase antibody [...] required. Performed By: #### C ARNPL #### [facility] [place] [id number] [address] [place] [address] [place] Glutamate decarboxylase 65 A b Qn (S)on 01-06-2023 GLUTAMIC ACID DECARBOXYLAS AB QUALITATIVE Negative Normal Negative [facility] Comment on above: Order Comment: Kathia olsen Type: BLOOD SPECIMEN Ordering Facility: [facility] Address: [address] [place] [address] Performed By: #### C ARNPL #### [facility] [place] [id number] [address] [place] [address] [place] HbA1c (Bld)on 01-06-2023 Average glucose Estimated from glycated hemoglobin (Bld) [Mass/Vol] 97 mg/dL Normal [facility] Comment on above: Order Comment: Kathia olsen Type: BLOOD SPECIMEN Ordering Facility: [facility] Address: [address] [place] [address] Result Comment: eAG: (Estimated average glucose) is a calculated value from HgbA1c and is screening representative of the average blood glucose level in the last 2-3 month period. Performed By: #### C ARNPL #### [facility] CLIA [id number] [facility] [place] [address] [place] HbA1c (Bld) [Mass fraction] 5.0 % Normal 4.3-5.6 [facility] Comment on above: Order Comment: Speci men Type: BLOOD SPECIMEN Ordering Facility: [facility] Address: [address] [address] Result Comment: Amer [place] Diabetes Association guidelines indicate that patients with HgbA1c in the range 5.7-6.4% are at increased risk for development of diabetes, and intervention by lifestyle modification may be beneficial. HgbA1c greater or equal to 6.5% is considered diagnostic of diabetes. Performed By: #### C ARNPL #### [facility] CLIA [id number] [address] [place] [address] [place] IgA SerPl-mCncon 01-06-2023 IgA [Mass/Vol] 168 mg/dL Normal 70-[address] [facility] Comment on above: Order Comment: Speci men Type: BLOOD SPECIMEN Ordering Facility: [facility] Address: [address] [place] [address] Performed By: #### 2 458-8, 7755-3, 9699 #### [facility] CLIA [id number] [address] [place] [address] [place] IgG SerPl-mCncon 01-06-2023 IgG [Mass/Vol] 887 mg/dL Normal 700-[address] [facility] Comment on above: Order Comment: Speci men Type: BLOOD SPECIMEN Ordering Facility: [facility] Address: [address] [place] [place] [address] Performed By: #### 2 458-8, 3875-3, 6249 #### [facility] CLIA [id number] [address] [place] [address] [place] IgM SerPl-mCncon 01-06-2023 IgM [Mass/Vol] 33 mg/dL Low 40-[address] [facility] Comment on above: Order Comment: Speci men Type: BLOOD SPECIMEN Ordering Facility: [facility] Address: [address] [place], [place] [address] Performed By: #### 2 458-8, 2465-3, 2472-9 #### [facility] CLIA [id number] [address] [place] [address] [place] LDH SerPl-cCncon 01-06-2023 LDH [Catalytic activity/Vol] 164 U/L Normal 135-214 [facility] Comment on above: Order Comment: Speci men Type: BLOOD SPECIMEN Ordering Facility: [facility] Address: [address] [place] [address] Performed By: #### C ARNPL #### [facility] CLIA [id number] [address] [place] [address] [place] ORGANIC ACIDS UR, QUANT W/CO NSULTon 01-06-2023 2-Hydroxyglutarate/Creatini ne (U) [Molar ratio] 7.3 umol/mmolCr Normal 0.6-17.7 [facility] Comment on above: Order Comment: Speci men Type: URINE SPECIMEN Ordering Facility: [facility] Address: [address] [place], [place] [address] Performed By: #### L [id number] #### [facility] CLIA [id number] [address] [place] [address] [place] 2-Hydroxyisovalerate/Creati nine (U) [Molar ratio] <0.1 Normal 0.0-0.1 [facility] Comment on above: Order Comment: Speci men Type: URINE SPECIMEN Ordering Facility: [facility] Address: [address] [place], [place] [address] Performed By: #### L [id number] #### [facility] CLIA [id number] [address] [place] [address] [place] 6-Bivfmo-1-hydroxybutyrate (C5-OH)/Creatinine (U) [Molar ratio] <0.6 Normal 0.0-1.3 [facility] Comment on above: Order Comment: Speci men Type: URINE SPECIMEN Ordering Facility: [facility] Address: [address] [place], [place] [address] Performed By: #### L [id number] #### [facility] CLIA [id number] [address] [place] [address] OF FE 2-Methylbutyrylglycine/Crea tinine (U) [Molar ratio] <0.1 Normal 0.0-0.4 [facility] Comment on above: Order Comment: Speci men Type: URINE SPECIMEN Ordering Facility: [facility] Address: [address] [place], [place] [address] Performed By: #### L [id number] #### [facility] CLIA [id number] [address] [place] [address] 2-Methylcitrate/Creatinine (U) [Molar ratio] 3.1 umol/mmolCr Normal 1.0-13.9 [facility] Comment on above: Order Comment: Speci men Type: URINE SPECIMEN Ordering Facility: [facility] Address: [address] [place], [place] [address] Performed By: #### L [id number] #### [facility] CLIA [id number] [address] [place] [address] [place] 2-Oxoadipate/Creatinine (U) [Molar ratio] 9.4 umol/mmolCr High 0.0-3.3 [facility] Comment on above: Order Comment: Speci men Type: URINE SPECIMEN Ordering Facility: [facility] Address: [address] [place], [place] [address] Performed By: #### L [id number] #### [facility] CLIA [id number] [address] [place] [address] [place] [facility] OF FE 3-Hydroxyglutarate/Creatini ne (U) [Molar ratio] 0.0 umol/mmolCr Normal 0.0-0.7 [facility] Comment on above: Order Comment: Speci men Type: URINE SPECIMEN Ordering Facility: [facility] Address: [address] [place] [address] Performed By: #### L [id number] #### [facility] CLIA [id number] [address] OF FE 3-Hydroxyisovalerate/Creati nine (U) [Molar ratio] 4.6 umol/mmolCr Normal 2.1-27.3 [facility] Comment on above: Order Comment: Speci men Type: URINE SPECIMEN Ordering Facility: [facility] Address: [address] [place], [place] [address] Performed By: #### L [id number] #### [facility] CLIA [id number] [address] [place] [address] [place] 3-Methylcrotonylglycine/Cre atinine (U) [Molar ratio] <0.3 Normal <0.3 [facility] Comment on above: Order Comment: Speci men Type: URINE SPECIMEN Ordering Facility: [facility] Address: [address] [place], [place] [address] Performed By: #### L [id number] #### [facility] CLIA [id number] [address] [place] [address] OF [place] 3-Methylglutaconate/Creatin ine (U) [Molar ratio] 1.1 umol/mmolCr Normal 0.0-2.[address] [facility] Comment on above: Order Comment: Speci men Type: URINE SPECIMEN Ordering Facility: [facility] Address: [address] [place], [place] [address] Performed By: #### L [id number] #### [facility] CLIA [id number] [address] OF FE 3-Methylglutarate/Creatinin e (U) [Molar ratio] 0.5 umol/mmolCr Normal 0.0-0.6 [facility] Comment on above: Order Comment: Speci men Type: URINE SPECIMEN Ordering Facility: [facility] Address: [address] [place] [address] Performed By: #### L [id number] #### [facility] CLIA [id number] [address] 4-Hydroxyphenylacetate/Crea tinine (U) [Molar ratio] 14.4 umol/mmolCr Normal 5.7-147.5 [facility] Comment on above: Order Comment: Speci men Type: URINE SPECIMEN Ordering Facility: [facility] Address: [address] [place], [place] [address] Performed By: #### L [id number] #### [facility] CLIA [id number] [address] [place] [address] OF [facility] 4-Hydroxyphenyllactate/Crea tinine (U) [Molar ratio] 4.3 umol/mmolCr Normal 1.3-23.0 [facility] Comment on above: Order Comment: Speci men Type: URINE SPECIMEN Ordering Facility: [facility] Address: [address] [place] [id number] Performed By: #### L [id number] #### [facility] CLIA [id number] [address] [place] [address] OF [place] 4-Hydroxyphenylpyruvate/Cre atinine (U) [Molar ratio] 0.0 umol/mmolCr Normal <=0.0 [facility] Comment on above: Order Comment: Speci men Type: URINE SPECIMEN Ordering Facility: [facility] Address: [address] [place] [address] Performed By: #### L [id number] #### [facility] CLIA [id number] [address] OF [place] 5-Oxoproline/Creatinine (U) [Molar ratio] 2.1 umol/mmolCr Normal 0.4-3.1 [facility] Comment on above: Order Comment: Speci men Type: URINE SPECIMEN Ordering Facility: [facility] Address: [address] Performed By: #### L [id number] #### [facility] CLIA [id number] [address] [place] [address] [place] Acetoacetate/Creatinine (U) [Molar ratio] <0.9 High 0.0-0.5 [facility] Comment on above: Order Comment: Speci men Type: URINE SPECIMEN Ordering Facility: [facility] Address: [address] [place], [place] [address] Performed By: #### L [id number] #### [facility] CLIA [id number] [address] [place] [address] [place] Aconitate/Creatinine (U) [Molar ratio] 22.8 umol/mmolCr Normal 8.5-109.6 [facility] Comment on above: Order Comment: Speci men Type: URINE SPECIMEN Ordering Facility: [facility] Address: [address] [place], [place] [address] Performed By: #### L [id number] #### [facility] CLIA [id number] [address] [place] [address] [place] Adipate/Creatinine (U) [Molar ratio] 1.4 umol/mmolCr Normal 0.3-9.2 [facility] Comment on above: Order Comment: Speci men Type: URINE SPECIMEN Ordering Facility: [facility] Address: [address] [place], [place] [address] Performed By: #### L [id number] #### [facility] CLIA [id number] [address] [place] [address] [place] Alpha hydroxybutyrate/Creatinine (U) [Molar ratio] <1.0 Normal 0.0-2.7 [facility] Comment on above: Order Comment: Speci men Type: URINE SPECIMEN Ordering Facility: [facility] Address: [address] Performed By: #### L [id number] #### [facility] CLIA [id number] [address] [place] [address] OF FE Alpha ketoglutarate/Creatinine (U) [Molar ratio] 12.0 umol/mmolCr Normal 0.2-42.7 [facility] Comment on above: Order Comment: Speci men Type: URINE SPECIMEN Ordering Facility: [facility] Address: [address] Performed By: #### L [id number] #### [facility] CLIA [id number] [address] [place] [address] [place] Benzoate/Creatinine (U) [Molar ratio] <12.2 Normal 0.0-14.6 [facility] Comment on above: Order Comment: Speci men Type: URINE SPECIMEN Ordering Facility: [facility] Address: [address] Performed By: #### L [id number] #### [facility] CLIA [id number] [address] [place] [address] [place] Beta hydroxybutyrate/Creatinine (U) [Molar ratio] <1.6 Normal 0.1-2.6 [facility] Comment on above: Order Comment: Speci men Type: URINE SPECIMEN Ordering Facility: [facility] Address: [address] Performed By: #### L [id number] #### [facility] CLIA [id number] [address] [place] [address] [place] Butyrylglycine/Creatinine (U) [Molar ratio] 0.0 umol/mmolCr Normal 0.0-0.7 [facility] Comment on above: Order Comment: Speci men Type: URINE SPECIMEN Ordering Facility: [facility] Address: [address] Performed By: #### L [id number] #### [facility] CLIA [id number] [address] [place] [address] [place] Creatinine (U) [Mass/Vol] 34.0 mg/dL Low 42.2-237.9 [facility] Comment on above: Order Comment: Speci men Type: URINE SPECIMEN Ordering Facility: [facility] Address: [address] [place] [address] Performed By: #### L [id number] #### [facility] CLIA [id number] [address] [place] [address] [place] Ethylmalonate/Creatinine (U) [Molar ratio] 6.3 umol/mmolCr High 0.5-6.2 [facility] Comment on above: Order Comment: Speci men Type: URINE SPECIMEN Ordering Facility: [facility] Address: [address] [place] [address] Performed By: #### L [id number] #### [facility] CLIA [id number] [address] [place] Fumarate/Creatinine (U) [Molar ratio] 2.3 umol/mmolCr Normal 0.3-2.6 [facility] Comment on above: Order Comment: Speci men Type: URINE SPECIMEN Ordering Facility: [facility] Address: [address] [place] [address] Performed By: #### L [id number] #### [facility] CLIA [id number] [address] [place] Glutarate/Creatinine (U) [Molar ratio] <0.1 Normal 0.0-1.4 [facility] Comment on above: Order Comment: Speci men Type: URINE SPECIMEN Ordering Facility: [facility] Address: [address] [place], [place] Performed By: #### L [id number] #### [facility] CLIA [id number] [address] [place] [address] [place] Hexanoylglycine/Creatinine (U) [Molar ratio] 0.2 umol/mmolCr High 0.0-0.1 [facility] Comment on above: Order Comment: Speci men Type: URINE SPECIMEN Ordering Facility: [facility] Address: [address] [place], [place] [address] Performed By: #### L [id number] #### [facility] CLIA [id number] [address] [place] [address] [place] Isobutyrylglycine/Creatinin e (U) [Molar ratio] 0.4 umol/mmolCr Normal 0.0-1.2 [facility] Comment on above: Order Comment: Speci men Type: URINE SPECIMEN Ordering Facility: [facility] Address: [address] [place], [place] [address] Performed By: #### L [id number] #### [facility] CLIA [id number] [address] [place] [address] [place] Isocitrate/Creatinine (U) [Molar ratio] 66.0 umol/mmolCr Normal 9.1-271.9 [facility] Comment on above: Order Comment: Speci men Type: URINE SPECIMEN Ordering Facility: [facility] Address: [address] [place], [place] [address] Performed By: #### L [id number] #### [facility] CLIA [id number] [address] [place] [address] [place] Lactate/Creatinine (U) [Molar ratio] 159.9 umol/mmolCr High 2.9-47.2 [facility] Comment on above: Order Comment: Speci men Type: URINE SPECIMEN Ordering Facility: [facility] Address: [address] [place] [address] Performed By: #### L [id number] #### [facility] CLIA [id number] [facility] [place] [address] [place] Malate/Creatinine (U) [Molar ratio] 0.4 umol/mmolCr Normal 0.0-1.1 [facility] Comment on above: Order Comment: Speci men Type: URINE SPECIMEN Ordering Facility: [facility] Address: [address] Performed By: #### L [id number] #### [facility] CLIA [id number] [address] [place] [address] [place] Malonate/Creatinine (U) [Molar ratio] 0.0 umol/mmolCr Normal 0.0-0.1 [facility] Comment on above: Order Comment: Speci men Type: URINE SPECIMEN Ordering Facility: [facility] Address: [address] [place] [address] Performed By: #### L [id number] #### [facility] CLIA [id number] [address] [place] [address] [place] Methylmalonate/Creatinine (U) [Molar ratio] <0.4 Normal 0.0-0.6 [facility] Comment on above: Order Comment: Speci men Type: URINE SPECIMEN Ordering Facility: [facility] Address: [address] Performed By: #### L [id number] #### [facility] CLIA [id number] [address] [place] [address] [place] Methylsuccinate/Creatinine (U) [Molar ratio] 1.2 umol/mmolCr Normal 0.0-1.4 [facility] Comment on above: Order Comment: Speci men Type: URINE SPECIMEN Ordering Facility: [facility] Address: [address] Performed By: #### L [id number] #### [facility] CLIA [id number] [facility] [place] [address] [place] N-acetylaspartate/Creatinin e (U) [Molar ratio] 1.7 umol/mmolCr Normal 0.1-8.9 [facility] Comment on above: Order Comment: Speci men Type: URINE SPECIMEN Ordering Facility: [facility] Address: [address] Performed By: #### L [id number] #### [facility] [facility] CLIA [id number] [address] [place] [address] [place] N-acetyltyrosine/Creatinine (U) [Molar ratio] <0.2 Normal 0.0-1.2 [facility] Comment on above: Order Comment: Speci men Type: URINE SPECIMEN Ordering Facility: [facility] Address: [address] Performed By: #### L [id number] #### [facility] CLIA [id number] [address] [place] [address] [place] Oxalate/Creatinine (U) [Molar ratio] 1.6 umol/mmolCr Normal 0.7-12.4 [facility] Comment on above: Order Comment: Speci men Type: URINE SPECIMEN Ordering Facility: [facility] Address: [address] Performed By: #### L [id number] #### [facility] CLIA [id number] [address] [place] [address] [place] Pyruvate/Creatinine (U) [Molar ratio] 0.3 umol/mmolCr Normal 0.1-2.6 [facility] Comment on above: Order Comment: Speci men Type: URINE SPECIMEN Ordering Facility: [facility] Address: [address] Performed By: #### L [id number] #### [facility] CLIA [id number] [address] [place] [address] [place] Sebacate (C8)/Creatinine (U) [Molar ratio] 0.0 umol/mmolCr Normal [facility] Comment on above: Order Comment: Speci men Type: URINE SPECIMEN Ordering Facility: [facility] Address: [address] Performed By: #### L [id number] #### [facility] CLIA [id number] [address] OF FE Suberate/Creatinine (U) [Molar ratio] 0.8 umol/mmolCr Normal 0.0-7.4 [facility] Comment on above: Order Comment: Speci men Type: URINE SPECIMEN Ordering Facility: [facility] Address: [address] [place] [address] Performed By: #### L [id number] #### [facility] CLIA [id number] [address] STATES [place] Suberylglycine/Creatinine (U) [Molar ratio] 0.0 umol/mmolCr Normal <=0.0 [facility] Comment on above: Order Comment: Speci men Type: URINE SPECIMEN Ordering Facility: [facility] Address: [address] [place] [address] Performed By: #### L [id number] #### [facility] CLIA [id number] [address] OF FE Succinate/Creatinine (U) [Molar ratio] 1.8 umol/mmolCr Normal 0.3-27.4 [facility] Comment on above: Order Comment: Speci men Type: URINE SPECIMEN Ordering Facility: [facility] Address: [address] [place] [address] Performed By: #### L [id number] #### [facility] CLIA [id number] [address] [place] Succinylacetone/Creatinine (U) [Molar ratio] <0.4 Normal <0.4 [facility] Comment on above: Order Comment: Speci men Type: URINE SPECIMEN Ordering Facility: [facility] Address: [address] [place] [address] Performed By: #### L [id number] #### [facility] CLIA [id number] [address] [place] [address] [place] UOA CONSULTATION Normal [facility] Comment on above: Order Comment: Speci men Type: URINE SPECIMEN Ordering Facility: [facility] Address: [address] [place] [id number] Result Comment: This urine organic acid analysis [...] and its performance characteristics determined by the [facility]. It has not been cleared or approved by the US Food and Drug Administration. The FDA had determined that such clearance or approval is not necessary. Performed By: #### L [id number] #### [facility] CLIA [id number] [address] [place] [address] [place] UOA REVIEW Reviewed by Andrés Alexander PhD [facility] Comment on above: Order Comment: Speci men Type: URINE SPECIMEN Ordering Facility: [facility] Address: [place] [address] Performed By: #### L [id number] #### [facility] CLIA [id number] [facility] [place] [address] [place] Uracil/Creatinine (U) [Molar ratio] 3.9 umol/mmolCr Normal 0.0-5.1 [facility] Comment on above: Order Comment: Speci men Type: URINE SPECIMEN Ordering Facility: [facility] Address: [address] [place] [address] Performed By: #### L [id number] #### [facility] CLIA [id number] [address] [place] [address] [place] PYRUVATE+LACTATE BLon 2022 Lactate [Moles/Vol] 1.5 mmol/L Normal 0.5-2.2 [facility] Comment on above: Order Comment: Speci men Type: BLOOD SPECIMEN Ordering Facility: [facility] Address: [address] [place] [address] Result Comment: This test was developed and its performance characteristics determined by [facility]'s [facility] [place] ([facility] It has not been cleared or approved by the FDA. -[facility] is regulated under CLIA as qualified to perform high-complexity testing. This test is used for clinical purposes. It should not be regarded as investigational or for research. Performed By: #### L ACPYR #### [facility] CLIA [id number] [address] [place] [address] [place] Pyruvate (Bld) [Moles/Vol] Normal [facility] Comment on above: Order Comment: Speci men Type: BLOOD SPECIMEN Ordering Facility: [facility] Address: [address] [place] [address] Result Comment: Unab le to assay. Analytical difficulty Performed By: #### L ACPYR #### [facility] CLIA [id number] [address] [place] [address] [place] T4 Free SerPl-mCncon 023 Free T4 [Mass/Vol] 1.2 ng/dL Normal 0.9-1.7 [facility] Comment on above: Order Comment: Speci men Type: BLOOD SPECIMEN Ordering Facility: [facility] Address: [address] [place] [address] Performed By: #### C ARNPL #### [facility] CLIA [id number] [address] [place] [address] [place] TSH SerPl-aCncon 01-06-2023 TSH Qn 1.960 m[IU]/L Normal 0.270-4.20 0 [facility] Comment on above: Order Comment: Kathia olsen Type: BLOOD SPECIMEN Ordering Facility: [facility] Address: [address] [place] [address] Result Comment: If t he patient is , TSH reference range varies by gestational period: First Trimester (weeks 9-12): 0.180-2.990 mIU/L Second Trimester: 0.110-3.980 mIU/L Third Trimester: 0.480-4.710 mIU/L Stephon Phelps et al. A Practical Approach for the Verifications and Determination of Site- and Trimester-Specific Reference Intervals for Thyroid Function tests in . Thyroid, 2019:29:3:412-420. Jeremiah Alejo, et al. 2017 Guidelines of the [place] Thyroid Association for the Diagnosis and Management of Thyroid Disease during and the . Thyroid, 2017:27:3:315-389. Performed By: #### C ARNPL #### [facility] CLIA [id number] [address] [place] [address] [place] VOLTAGE GATED CA IGGon 01-06 P/Q-TYPE CALCIUM CHANNEL ANTIBODY 9.4 pmol/L Normal 0.0-24.5 [facility] Comment on above: Order Comment: Kathia olsen Type: BLOOD SPECIMEN Ordering Facility: [facility] Address: [address] [place], [place] [address] Result Comment: INTE RPRETIVE INFORMATION: P/Q-Type Calcium Channel Antibody 0.0 to 24.5 pmol/L ............. Negative 24.6 to 45.6 pmol/L ............ Indeterminate 45.7 pmol/L or greater.......... Positive This test was developed and its performance characteristics determined by [facility]. It has not been cleared or approved by the US Food and Drug Administration. This test was performed in a CLIA certified laboratory and is intended for clinical purposes. Performed By: [facility] [address] [place] [address] [employer] Supervisor: Silvano Melendrez MD, PhD Performed By: #### V BRITTNY SINGLETARY #### [facility] [id number] [address] [place] [address] VOLTAGE-GATED POTASSIUM HUSAIN ABon 01-06-2023 VOLTAGE-GATED POTASSIUM CHANNEL AB, SER 0 pmol/L Normal 0-31 [facility] Comment on above: Order Comment: Speci men Type: BLOOD SPECIMEN Ordering Facility: [facility] Address: [address] [place] [phone] Result Comment: INTE RPRETIVE INFORMATION: Voltage-Gated Potassium [...] developed and its performance characteristics determined by [employer] [facility]. It has not been cleared or approved by the US Food and Drug Administration. This test was performed in a CLIA certified laboratory and is intended for clinical purposes. Performed By: [facility] [address] [place] [address] [employer] Supervisor: Silvano Melendrez MD, PhD Performed By: #### V GKCAB #### [facility] CLIA [id number] [address] [place] [address] [place] GASTRIC EMPTYING SOLIDon 10-14-2022 [facility] Absolute lymphocyte countOrd ered By: Michael Tatum on 09-10-2022 Lymphocytes Auto (Unsp spec) [#/Vol] 1.81 10*3/uL 0.83-4.51 [facility] Albumin Elph [Mass/Vol]Order ed By: Michael Tatum on 09-10-2022 Albumin [Mass/Vol] 4.2 g/dL 2.9-4.4 [facility] Atypical perinuclear antineu trophil cytoplasmic antibodies measurementOrdered By: Michael Tatum on 09-10-2022 Neutrophil cytoplasmic Ab.perinuclear.atypical IF (S) [Titer] <1:20 titer Neg:<1:20 [facility] Comment on above: The atypical pANCA p attern has been observed in asignificant percentage of patients with ulcerative colitis,primary sclerosing cholangitis and autoimmune hepatitis. Basophil percentageOrdered B y: Michael Tatum on 09-10-2022 Basophil percentage < 0.2 AI 0.0-0.9 [facility] Basophils/100 WBC (Bld) 0.4 % 0-1 [facility] Bilirubin [Mass/Vol] 0.20 mg/dL 0.20-1.00 [facility] Comment on above: For patients on eltr ombopag therapy, use of Dimension [place] TBIL is not recommended. Chloride [Moles/Vol] 109 mmol/L 98-107 [facility] Eosinophils/100 WBC (Bld) 1.8 % 0-5 [facility] Glucose [Mass/Vol] 107 mg/dL 74-106 [facility] Comment on above: Fasting Glucose resu lt from 100 to 125 mg/dL suggests IMPAIRED HOMEOSTASIS per A.D.A. criteria. LDH [Catalytic activity/Vol] 149 U/L 84-246 [facility] Neutrophils (Bld) [#/Vol] 5.4 10*3/uL 2.0-7.7 [facility] Neutrophils/100 WBC (Bld) 68.0 % 47-70 [facility] Potassium [Moles/Vol] 4.1 mmol/L 3.5-5.1 [facility] Protein [Mass/Vol] 7.7 g/dL 6.4-8.2 [facility] Sodium [Moles/Vol] 141 mmol/L 136-145 [facility] WBC (Bld) [#/Vol] 8.0 10*3/uL 4.4-11.0 [facility] Blood erythrocytes count (nu mber/volume)Ordered By: Michael Tatum on 09-10-2022 RBC (Bld) [#/Vol] 5.34 10*6/uL 4.2-5.4 [facility] Blood hemoglobin measurement (mass/volume)Ordered By: Michael Tatum on 09-10-2022 Hemoglobin (Bld) [Mass/Vol] 13.5 g/dL 12.0-15. 0 [facility] Blood lymphocytes/100 leukoc ytesOrdered By: Michael Tatum on 09-10-2022 Lymphocytes/100 WBC (Bld) 22.8 % 19-41 [facility] Blood monocytes/100 leukocyt esOrdered By: Michael Tatum on 09-10-2022 Monocytes/100 WBC (Bld) 6.7 % 0-10 [facility] Blood platelet mean volumeOr dered By: Michael Tatum on 09-10-2022 Platelet mean volume (Bld) [Entitic vol] 10.4 fL 6.2-12.0 [facility] Determination of erythrocyte mean corpuscular volume (MCV)Ordered By: Michael Tatum on 09-10-2022 MCV (RBC) [Entitic vol] 76.4 fL 81-99 [facility] Erythrocyte sedimentation ra teOrdered By: Michael Tatum on 09-10-2022 ESR (Bld) [Velocity] 21 mm/h 0-30 [facility] Hematocrit Auto (Bld) [Volum e fraction]Ordered By: Michael Tatum on 09-10-2022 Hematocrit (Bld) [Volume fraction] 40.8 % 37-47 [facility] Interpretation of serum or p lasma protein pattern by immunofixation (narrative resultOrdered By: Michael Tatum on 09-10-2022 Protein Fractions Immunofixation Aden [Interp] See comment [facility] Comment on above: Result: Not Observed Laboratory - Chemistry and C hemistry - challengeOrdered By: Michael Tatum on 09-10-2022 ALP [Catalytic activity/Vol] 76 U/L 45-117 [facility] ALT [Catalytic activity/Vol] 42 U/L 13-56 [facility] CO2 [Moles/Vol] 24.0 mmol/L 21.0-32.0 [facility] Free T4 [Mass/Vol] 0.82 ng/dL 0.76-1.46 [facility] Urea nitrogen/Creatinine [Mass ratio] 19.9 mg/mg 10-20 [facility] Laboratory - Hematology and Cell countsOrdered By: Michael Tatum on 09-10-2022 Erythrocyte distribution width (RBC) [Entitic vol] 38.4 fL 35.1-43.9 [facility] Erythrocyte distribution width (RBC) [Ratio] 14.1 % 11.6-14.6 [facility] Immature granulocytes/100 WBC (Bld) 0.300 % 0.0-0.9 [facility] Comment on above: IG% - Immature Granu locytes (promyelocytes, myelocytes and metamyelocytes) > 1% indicates that a LEFT SHIFT is Present. MCH (RBC) [Entitic mass] 25.3 pg 27.0-32.0 [facility] Nucleated RBC/100 WBC (Bld) [Ratio] 0 % 0-5 [facility] MCHC Auto (RBC) [Mass/Vol]Or dered By: Michael Tatum on 09-10-2022 MCHC (RBC) [Mass/Vol] 33.1 g/dL 32-36 [facility] No Panel InformationOrdered By: Michael Tatum on 09-10-2022 Addendum Document Comment . [facility] Comment on above: Protein electrophore sis scan will follow via computer,mail, or fibrous plasterer delivery. Centromere B Antibody <0.2 AI 0.0-0.9 [facility] Endomysial IgA Antibody Negative Negative [facility] Estimated GFR (MDRD) Amer 145 mL/min >60 [facility] Comment on above: GFR Calc Estimated GFR (MDRD) Non-Af Amer 120 mL/min >60 [facility] Comment on above: Non- GFR Calc Free Triiodothyronine (T3) pg/dL 2.6 pg/mL 2.18-3.98 [facility] Immunoglobulin E 9 IU/mL 6-495 [facility] Intrinsic Factor Antibody 1.0 AU/mL 0.0-1.1 [facility] TAPPER HELPER Antibody <0.2 AI 0.0-0.9 [facility] Thyroid Stimulating Hormone (TSH) 2.51 uIU/mL 0.358-3.74 [facility] Platelets bldOrdered By: Yina Tatum on 09-10-2022 Platelets (Bld) [#/Vol] 298 10*3/uL 150-450 [facility] Serum DNA double strand anti body assay (units/volume)Ordered By: Michael Tatum on 09-10-2022 DNA double strand Ab Qn (S) 1 [IU]/mL 0-9 [facility] Comment on above: Negative <5 Equivoca l 5 - 9 Positive >9 Serum Jaycee-1 antibody assay (u nits/volume)Ordered By: Michael Tatum on 09-10-2022 Jaycee-1 extractable nuclear Ab Qn (S) <0.2 AI 0.0-0.9 [facility] Serum Scl-70 extractable nuc lear antibody assay (units/volume)Ordered By: Michael Tatum on 09-10-2022 SCL-70 extractable nuclear Ab Qn (S) <0.2 AI 0.0-0.9 [facility] Serum Ma extractable nucl ear antibody detectionOrdered By: Michael Tatum on 09-10-2022 Ma extractable nuclear Ab Ql (S) <0.2 AI 0.0-0.9 [facility] Serum fgoti-2-ollrxaop measu rement by electrophoresisOrdered By: Michael Tatum on 09-10-2022 Alpha 1 globulin Elph [Mass/Vol] 0.2 g/dL 0.0-0.4 [facility] Alpha 1 globulin Elph [Mass/Vol] 0.7 g/dL 0.4-1.0 [facility] Serum classic neutrophil cyt oplasmic antibody assay (units/volume)Ordered By: Michael Tatum on 09-10-2022 Neutrophil cytoplasmic Ab.classic Qn (S) <1:20 titer Neg:<1:20 [facility] Serum globulin measurement ( mass/volume)Ordered By: Michael Tatum on 09-10-2022 Globulin (S) [Mass/Vol] 2.8 g/dL 2.2-3.9 [facility] Serum mitochondria antibody detectionOrdered By: Michael Tatum on 09-10-2022 Mitochondria Ab Ql (S) <20.0 Units 0.0-20.0 [facility] Comment on above: Negative 0.0 - 20.0 Equivocal 20.1 - 24.9 Positive >24.9Mitochondrial (M2) Antibodies are found in 90-96% ofpatients with primary biliary cirrhosis.Performed at: [address] [id number] Director: Jaden Lopez PhD, Phone: [phone] Serum or plasma C reactive p rotein measurement (mass/volume)Ordered By: Michael Tatum on 09-10-2022 CRP [Mass/Vol] mg/L 0.0-3.0 [facility] Comment on above: C-Reactive Protein ( CRP) provides useful information for thediagnosis, therapy and monitoring of inflammatory processesand associated diseases. For the evaluation of Relative Riskfor Cardiovascular Disease, a High Sensitivity CRP (HSCRP)should be ordered. Serum or plasma IgA measurem ent (mass/volume)Ordered By: Michael Tatum on 09-10-2022 IgA [Mass/Vol] 135 mg/dL 87-352 [facility] Serum or plasma IgG measurem ent (mass/volume)Ordered By: Michael Tatum on 09-10-2022 IgG [Mass/Vol] 851 mg/dL [phone] [facility] Serum or plasma IgM measurem ent (mass/volume)Ordered By: Michael Tatum on 09-10-2022 IgM [Mass/Vol] 37 mg/dL 26-217 [facility] Serum or plasma actin IgG an tibody assay (units/volume)Ordered By: Michael Tatum on 09-10-2022 Actin IgG Qn 6 Units 0-19 [facility] Comment on above: Negative 0 - 19 Weak positive 20 - 30 Moderate to strong positive >30 Actin Antibodies are found in 52-85% of patients with autoimmune hepatitis or chronic active hepatitis and in 22% of patients with primary biliary cirrhosis. Serum or plasma albumin charu urement (mass/volume)Ordered By: Michael Tatum on 09-10-2022 Albumin [Mass/Vol] 4.0 g/dL 3.2-5.0 [facility] Serum or plasma albumin/glob ulin mass ratioOrdered By: Michael Tatum on 09-10-2022 Albumin/Globulin [Mass ratio] 1.1 {ratio} 0.9-2.4 [facility] Serum or plasma beta globuli n measurement by electrophoresis (mass/volume)Ordered By: Michael Tatum on 09-10-2022 Beta globulin Elph [Mass/Vol] 1.3 g/dL 0.7-1.3 [facility] Serum or plasma calcium charu urement (mass/volume)Ordered By: Michael Tatum on 09-10-2022 Calcium [Mass/Vol] 9.5 mg/dL 8.5-10.1 [facility] Serum or plasma creatinine m easurement (mass/volume)Ordered By: Mcihael Tatum on 09-10-2022 Creatinine [Mass/Vol] 0.60 mg/dL 0.55-1.02 [facility] Comment on above: The validity of the calculated GFR & GFRAA in patients over 70 years has not been determined. Clinical correlation is essential. Serum or plasma gamma globul in measurement by electrophoresis (mass/volume)Ordered By: Michael Tatum on 09-10-2022 Gamma globulin Elph [Mass/Vol] 0.6 g/dL 0.4-1.8 [facility] Serum or plasma immunoelectr ophoresis interpretation (nominal result)Ordered By: Michael Tatum on 09-10-2022 Interpretation IEP [Interp] Comment . [facility] Comment on above: No monoclonality det ected. Serum or plasma thyroperoxid ase antibody assay (units/volume)Ordered By: Michael Tatum on 09-10-2022 TPO Ab Qn 13 [IU]/mL 0-34 [facility] Comment on above: Performed at: [facility] [address] [id number] Director: Jaden Lopez PhD, Phone: [phone] at: [facility] [id number] Director: Villa Hunt MD, Phone: [phone] Serum or plasma urea nitroge n measurement (mass/volume)Ordered By: Michael Tatum on 09-10-2022 Urea nitrogen [Mass/Vol] 12 mg/dL 7-18 [facility] Serum parietal cell antibody assay (units/volume)Ordered By: Michael Tatum on 09-10-2022 Parietal cell Ab Qn (S) 1.6 Units 0.0-20.0 [facility] Comment on above: Negative 0.0 - 20.0 Equivocal 20.1 - 24.9 Positive >24.9Parietal Cell Antibodies are found in 90% of patientswith pernicious anemia and 30% of first degreerelatives with pernicious anemia. Serum perinuclear neutrophil cytoplasmic antibody titer by immunofluorescenceOrdered By: Michael Tatum on 09-10-2022 Neutrophil cytoplasmic Ab.perinuclear IF (S) [Titer] <1:20 titer Neg:<1:20 [facility] Comment on above: The presence of posi tive fluorescence exhibiting P-ANCA orC-ANCA patterns alone is not specific for the diagnosis ofWegener's Granulomatosis (WG) or microscopic polyangiitis.Decisions about treatment should not be based solely onANCA IFA results. The International ANCA Group Consensusrecommends follow up testing of positive sera with both NH-3 and MPO-ANCA enzyme immunoassays. As many as 5% serumsamples are positive only by EIA. Ref. AM J Clin Pncbdp5602;111:507-513. Serum tissue transglutaminas e IgA antibody assay (units/volume)Ordered By: Michael Tatum on 09-10-2022 tTG IgA Qn (S) <2 U/mL 0-3 [facility] Comment on above: Negative 0 - 3 Weak Positive 4 - 10 Positive >10 Tissue Transglutaminase (tTG) has been identified as the endomysial antigen. Studies have demonstr- ated that endomysial IgA antibodies have over 99% specificity for gluten sensitive enteropathy. Thin prep Papanicolaou smear with manual screeningOrdered By: Michael Tatum on 09-10-2022 Thin prep Papanicolaou smear with manual screening 27 U/L 15-37 [facility] Thin prep Papanicolaou smear with manual screening 8 5-15 [facility] Thin prep Papanicolaou smear with manual screening 1.6 0.7-1.7 [facility] Total protein bloodOrdered B y: Michael Tatum on 09-10-2022 Protein [Mass/Vol] 7.0 g/dL 6.0-8.5 [facility] Whole blood hemoglobin A1c/t otal hemoglobin ratio (mass fraction)Ordered By: Michael Tatum on 09-10-2022 HbA1c (Bld) [Mass fraction] 5.5 % 3.8-5.6 [facility] Comment on above: Normal < 5.7 % Predi abetic 5.7 - 6.4 % Diabetic >or= 6.5 % Please note range changes. Laboratory - Chemistry and C hemistry - challengeOrdered By: Dr. Andrews on 08-18-2022 HCG ( test) Ql (U) Negative [facility] Comment on above: Very dilute urine sp ecimens, as indicated by a low specificgravity, may not contain screening representative levels of hCG. If is still [...] hernia 2. No evidence of gastroesophageal reflux Reservation Sales Agent: NICOLE Transcribe Date/Time: Oct 15 2021 10:03A Dictated by : AUGUSTINA MALAVE DO This examination was interpreted and the report reviewed and electronically signed by: AUGUSTINA MALAVE DO on Oct 15 2021 10:03AM EST [id number] N Normal [facility] CBC and Differentialon 12-30 Abs Baso 0.04 k/uL Normal <0.11 [facility] Comment on above: Performed By: #### M ICRO, TSH, DHEAS, CMP, CBCDIF, COR, HSCRP, FREET3, FT4 #### [facility] [address] [phone] Abs [place] 0.41 k/uL Normal <0.87 [facility] Comment on above: Performed By: #### M ICRO, TSH, DHEAS, CMP, CBCDIF, COR, HSCRP, FREET3, FT4 #### [facility] [address] [place] [phone] Abs Neut 4.13 k/uL Normal 1.45-7.50 [facility] Comment on above: Performed By: #### M ICRO, TSH, DHEAS, CMP, CBCDIF, COR, HSCRP, FREET3, FT4 #### [facility] [address] [place] [phone] Absolute nRBC <0.01 Normal <0.01 [facility] Comment on above: Performed By: #### M ICRO, TSH, DHEAS, CMP, CBCDIF, COR, HSCRP, FREET3, FT4 #### [facility] [address] [place] [phone] Basophils/100 WBC (Bld) 0.6 % Normal C [facility] Comment on above: Performed By: #### M ICRO, TSH, DHEAS, CMP, CBCDIF, COR, HSCRP, FREET3, FT4 #### [facility] [address] [place] [address] DTYPE ADIFF Normal [facility] Comment on above: Performed By: #### M ICRO, TSH, DHEAS, CMP, CBCDIF, COR, HSCRP, FREET3, FT4 #### [facility] [address] [phone] Eosinophils (Bld) [#/Vol] 0.14 10*3/uL Normal <0.46 [facility] Comment on above: Performed By: #### M ICRO, TSH, DHEAS, CMP, CBCDIF, COR, HSCRP, FREET3, FT4 #### [facility] [address] [phone] Eosinophils/100 WBC (Bld) 2.2 % Normal [facility] Comment on above: Performed By: #### M ICRO, TSH, DHEAS, CMP, CBCDIF, COR, HSCRP, FREET3, FT4 #### [facility] [address] [place] [phone] Erythrocyte distribution width (RBC) [Ratio] 13.3 % Normal 11.5-15.0 [facility] Comment on above: Performed By: #### M ICRO, TSH, DHEAS, CMP, CBCDIF, COR, HSCRP, FREET3, FT4 #### [facility] [address] [place] [phone] Hematocrit (Bld) [Volume fraction] 45.1 % Normal 36.0-46.0 [facility] Comment on above: Performed By: #### M ICRO, TSH, DHEAS, CMP, CBCDIF, COR, HSCRP, FREET3, FT4 #### [facility] [address] [place] [phone] Hemoglobin (Bld) [Mass/Vol] 14.4 g/dL Normal 11.5-15. 5 [facility] Comment on above: Performed By: #### M ICRO, TSH, DHEAS, CMP, CBCDIF, COR, HSCRP, FREET3, FT4 #### [facility] [address] [phone] Lymphocytes (Bld) [#/Vol] 1.62 10*3/uL Normal 1.00-4.0 0 [facility] Comment on above: Performed By: #### M ICRO, TSH, DHEAS, CMP, CBCDIF, COR, HSCRP, FREET3, FT4 #### [facility] [address] [place], [place] [address] Lymphocytes/100 WBC (Bld) 25.5 % Normal [facility] Comment on above: Performed By: #### M ICRO, TSH, DHEAS, CMP, CBCDIF, COR, HSCRP, FREET3, FT4 #### [facility] [address] [place], [place] [address] MCH 26.9 pG Normal 26.0-34.0 [facility] Comment on above: Performed By: #### M ICRO, TSH, DHEAS, CMP, CBCDIF, COR, HSCRP, FREET3, FT4 #### [facility] [address] [place] [address] MCHC (RBC) [Mass/Vol] 31.9 g/dL Normal 30.5-36.0 [facility] Comment on above: Performed By: #### M ICRO, TSH, DHEAS, CMP, CBCDIF, COR, HSCRP, FREET3, FT4 #### [facility] [address] [place], [place] [address] MCV (RBC) [Entitic vol] 84.1 fL Normal 80.0-100.0 C [facility] Comment on above: Performed By: #### M ICRO, TSH, DHEAS, CMP, CBCDIF, COR, HSCRP, FREET3, FT4 #### [facility] [address] [place], [place] [address] Monocytes/100 WBC (Bld) 6.4 % Normal C [facility] Comment on above: Performed By: #### M ICRO, TSH, DHEAS, CMP, CBCDIF, COR, HSCRP, FREET3, FT4 #### [facility] [address] [place], [place] [address] Neutrophils/100 WBC (Bld) 65.3 % Normal [facility] Comment on above: Performed By: #### M ICRO, TSH, DHEAS, CMP, CBCDIF, COR, HSCRP, FREET3, FT4 #### [facility] [address] [place], [place] [address] NRBCs 0.0 /100 WBC Normal 0 [facility] Comment on above: Performed By: #### M ICRO, TSH, DHEAS, CMP, CBCDIF, COR, HSCRP, FREET3, FT4 #### [facility] [address] [place], [place] [address] Platelet mean volume (Bld) [Entitic vol] 11.3 fL Normal 9.0-12.7 [facility] Comment on above: Performed By: #### M ICRO, TSH, DHEAS, CMP, CBCDIF, COR, HSCRP, FREET3, FT4 #### [facility] [address] [place], [place] [address] Platelets (Bld) [#/Vol] 253 10*3/uL Normal 150-400 [facility] Comment on above: Performed By: #### M ICRO, TSH, DHEAS, CMP, CBCDIF, COR, HSCRP, FREET3, FT4 #### [facility] [address] [place], [place] [address] RBC (Bld) [#/Vol] 5.36 10*6/uL High 3.90-5.20 [facility] Comment on above: Performed By: #### M ICRO, TSH, DHEAS, CMP, CBCDIF, COR, HSCRP, FREET3, FT4 #### [facility] [address] [place], [place] [address] WBC (Bld) [#/Vol] 6.36 10*3/uL Normal 3.70-11.00 [facility] Comment on above: Performed By: #### M ICRO, TSH, DHEAS, CMP, CBCDIF, COR, HSCRP, FREET3, FT4 #### [facility] [address] [place], [place] [address] Comp Metabolic Panelon 12-30 Albumin [Mass/Vol] 4.6 g/dL Normal 3.9-4.9 [facility] Reference Lab Comment on above: Performed By: #### M ICRO, TSH, DHEAS, CMP, CBCDIF, COR, HSCRP, FREET3, FT4 #### [facility] [address] [place], [place] [address] ALP [Catalytic activity/Vol] 65 U/L Normal 34-123 [facility] Comment on above: Performed By: #### M ICRO, TSH, DHEAS, CMP, CBCDIF, COR, HSCRP, FREET3, FT4 #### [facility] [address] [place] [address] ALT [Catalytic activity/Vol] 28 U/L Normal 7-38 [facility] Comment on above: Performed By: #### M ICRO, TSH, DHEAS, CMP, CBCDIF, COR, HSCRP, FREET3, FT4 #### [facility] [address] [place] [address] Anion gap [Moles/Vol] 12 mmol/L Normal 9-18 [facility] Comment on above: Performed By: #### M ICRO, TSH, DHEAS, CMP, CBCDIF, COR, HSCRP, FREET3, FT4 #### [facility] [address] [place] [address] AST [Catalytic activity/Vol] 28 U/L Normal 13-35 [facility] Comment on above: Performed By: #### M ICRO, TSH, DHEAS, CMP, CBCDIF, COR, HSCRP, FREET3, FT4 #### [facility] [address] [place] [address] Bilirubin [Mass/Vol] 0.3 mg/dL Normal 0.2-1.3 [facility] Lab Comment on above: Performed By: #### M ICRO, TSH, DHEAS, CMP, CBCDIF, COR, HSCRP, FREET3, FT4 #### [facility] Routine Lab [address] [address] Calcium [Mass/Vol] 9.3 mg/dL Normal 8.5-10.2 [facility] Comment on above: Performed By: #### M ICRO, TSH, DHEAS, CMP, CBCDIF, COR, HSCRP, FREET3, FT4 #### [facility] [address] [place] [address] Chloride [Moles/Vol] 106 mmol/L High 97-105 [facility] Lab Comment on above: Performed By: #### M ICRO, TSH, DHEAS, CMP, CBCDIF, COR, HSCRP, FREET3, FT4 #### [facility] [address] [phone] CO2 [Moles/Vol] 20 mmol/L Low 22-30 [facility] Comment on above: Performed By: #### M ICRO, TSH, DHEAS, CMP, CBCDIF, COR, HSCRP, FREET3, FT4 #### [facility] [address] [place] [address] Creatinine [Mass/Vol] 0.57 mg/dL Low 0.58-0.96 [facility] Comment on above: Performed By: #### M ICRO, TSH, DHEAS, CMP, CBCDIF, COR, HSCRP, FREET3, FT4 #### [facility] [address] [address] eGFR- Amer. >60 Normal [facility] Comment on above: Performed By: #### M ICRO, TSH, DHEAS, CMP, CBCDIF, COR, HSCRP, FREET3, FT4 #### [facility] Routine Lab [address] [phone] eGFR-All Other Races >60 Normal [facility] Reference Lab Comment on above: Performed By: #### M ICRO, TSH, DHEAS, CMP, CBCDIF, COR, HSCRP, FREET3, FT4 #### [facility] [address] [place], [place] [address] Glucose [Mass/Vol] 88 mg/dL Normal 74-99 [facility] Comment on above: Performed By: #### M ICRO, TSH, DHEAS, CMP, CBCDIF, COR, HSCRP, FREET3, FT4 #### [facility] [address] [place] [address] Potassium [Moles/Vol] 4.3 mmol/L Normal 3.7-5.1 [facility] Comment on above: Performed By: #### M ICRO, TSH, DHEAS, CMP, CBCDIF, COR, HSCRP, FREET3, FT4 #### [facility] [address] [place] [address] Protein [Mass/Vol] 6.9 g/dL Normal 6.3-8.0 [facility] Comment on above: Performed By: #### M ICRO, TSH, DHEAS, CMP, CBCDIF, COR, HSCRP, FREET3, FT4 #### [facility] [address] [place] [address] Sodium [Moles/Vol] 138 mmol/L Normal 136-144 [facility] Comment on above: Performed By: #### M ICRO, TSH, DHEAS, CMP, CBCDIF, COR, HSCRP, FREET3, FT4 #### [facility] [address] [place] [address] Urea nitrogen [Mass/Vol] 14 mg/dL Normal 7-21 [facility] Comment on above: Performed By: #### M ICRO, TSH, DHEAS, CMP, CBCDIF, COR, HSCRP, FREET3, FT4 #### [facility] [address] [address] Cortisolon 12-30-2020 Cortisol 12.1 ug/dL Normal 4.8-19.5 [facility] Comment on above: Performed By: #### M ICRO, TSH, DHEAS, CMP, CBCDIF, COR, HSCRP, FREET3, FT4 #### [facility] [address] [place] [address] DHEA-Son 12-30-2020 DHEA-S 64.1 ug/dL Low 98.8-340.0 [facility] Comment on above: Performed By: #### M ICRO, TSH, DHEAS, CMP, CBCDIF, COR, HSCRP, FREET3, FT4 #### [facility] [address] [place] [address] Free T3on 12-30-2020 Free T3 [Mass/Vol] 3.5 pg/mL Normal 2.3-4.1 [facility] Comment on above: Performed By: #### M ICRO, TSH, DHEAS, CMP, CBCDIF, COR, HSCRP, FREET3, FT4 #### [facility] [address] [place] [address] Free T4on 12-30-2020 Free T4 [Mass/Vol] 0.9 ng/dL Normal 0.9-1.7 [facility] Comment on above: Performed By: #### M ICRO, TSH, DHEAS, CMP, CBCDIF, COR, HSCRP, FREET3, FT4 #### [facility] [address] [place] [address] TPO Antibodyon 12-30-2020 TPO Antibody <1.0 Normal <5.6 [facility] Comment on above: Performed By: #### M ICRO, TSH, DHEAS, CMP, CBCDIF, COR, HSCRP, FREET3, FT4 #### [facility] [address] [place] [address] TSHon 12-30-2020 TSH Qn 2.740 m[IU]/L Normal 0.270-4.20 0 [facility] Comment on above: Performed By: #### M ICRO, TSH, DHEAS, CMP, CBCDIF, COR, HSCRP, FREET3, FT4 #### [facility] Routine Lab [address] [address] Ultra-sensitive CRPon 2020 UltraSens C-ReacProt 0.5 mg/L Normal <3.1 [facility] Lab Comment on above: Performed By: #### M ICRO, TSH, DHEAS, CMP, CBCDIF, COR, HSCRP, FREET3, FT4 #### [facility] Routine Lab [address] [address] NOVEL CORONAVIRUS NASOPHARYN GEAL - [facility] SPECIMEN ONLYon 03-26-2020 SARS-COV-2 NOT DETECTED Normal NOT DETECTED [facility] Comment on above: Order Comment: Viral transport [...] or clinically deteriorating. Performed By: #### L [id number] #### [place] [address] PROGRESSon 09-22-2017 PROGRESS HNO ID: [id number]: Ángel Morfin (Rt): RadiologyAuthoeliecer Type: TechnicianType: Progress NotesFiled: 09/22/2017 11:26 AMNote Text: Radiology Service Progress NotePATIENT NAME: Forest NguyenMRN: [id number] OF SERVICE: September 22, 2017TIME: 11:26 AMPATIENT IDENTITY VERIFICATION COMPLETED USING TWO (2) METHODS: Patientconfirmed name verbally and Date of .PATIENT GENDER DATA: Female. status: : NoBreastfeeding status: NO.PATIENT RELEVANT IMPLANT DATA REVIEWED: Not ApplicableRADIOLOGY DEPARTMENT: Ultrasound RENALPERIPHERAL IV DATA: Not applicableSIGNED BY: RT NavjotFebruary 2017 11:26 AM [facility] US KIDNEY/BLADDERon 09-22-19 18 US KIDNEY/BLADDER * * *Final Report* * *DATE OF EXAM: Sep 22 2017 11:22AM [facility] 1055 - US KIDNEY/BLADDER / REASON: Essential [...] appearance.IMPRESSION : NO ACUTE RENAL ABNORMALITIESTranscri ptionist: NICOLE Transcribe Date/Time: Sep 22 2017 11:36ADictated by : DIEGO EH MDThis examination was interpreted and the report reviewed and electronically signed by: DIEGO HE MD on Sep 22 2017 11:37AM [id number] [facility] CT HEAD OR BRAIN WITHOUT CON TRASTon 08-30-2017 CT HEAD OR BRAIN WITHOUT CONTRAST EXAMINATION:CT OF THE HEAD WITHOUT CONTRAST 08/30/2017TECHNIQUE:CT of the head was performed without the administration of intravenous contrast. Dose modulation, iterative reconstruction, and/or weight based adjustment of the mA/kV was utilized to reduce the radiation dose to as low as reasonably achievable.COMPARISON :None.HISTORY:ORDERIN G SYSTEM PROVIDED HISTORY: elevated blood pressure, vision [...] 30, 2017 8:13:[address] [facility] Comment on above: Order Comment: Reaso n [...] 30, 2017 8:22:[address] [facility] Comment on above: Order Comment: Reaso n for exam?:blurred visionInjury/Trauma or Illness?:Illness/OtherHow long have you had these symptoms (acute/chronic)?:AcuteHistory of cancer?:nSurgeries, chemotherapy, or radiation?:nType of Exam?:InitialAdditional signs and symptoms?:n DDI VIBRATION CONTROLLED TRA NSIENT ELASTOGRAPHY (VCTE) [facility] Vital Signs Date Time Vital Sign Value Performing Clinician Facility 01-10-2025 07:28-0400 Body mass index (BMI) [Ratio] 35.68 kg/m2 Jaclyn Ivory APRN.BULK SEALER OPERATOR Work Phone: [facility] 01-10-2025 07:28-0400 Body weight 80.29 kg Jaclyn Ivory APRN.BULK SEALER OPERATOR Work Phone: [facility] 01-10-2025 07:28-0400 Diastolic blood pressure 88 mm[Hg] Jaclyn Ivory APRN.BULK SEALER OPERATOR Work Phone: [facility] 01-10-2025 07:28-0400 Heart rate 94 /min Jaclyn Ivory APRN.BULK SEALER OPERATOR Work Phone: [facility] 01-10-2025 07:28-0400 Respiratory rate 16 /min Jaclyn Ivory APRN.BULK SEALER OPERATOR Work Phone: [facility] 01-10-2025 07:28-0400 SaO2% (BldA) [Mass fraction] 98 % Jaclyn Ivory APRN.BULK SEALER OPERATOR Work Phone: [facility] 01-10-2025 07:28-0400 Systolic blood pressure 132 mm[Hg] Jaclyn Ivory APRN.BULK SEALER OPERATOR Work Phone: [facility] 11-29-2024 14:05-0400 Diastolic blood pressure 97 mm[Hg] Jaclyn Ivory APRN.BULK SEALER OPERATOR Work Phone: [facility] 11-29-2024 14:05-0400 Systolic blood pressure 152 mm[Hg] Jaclyn Ivory APRN.BULK SEALER OPERATOR Work Phone: [facility] 11-29-2024 13:17-0400 Body mass index (BMI) [Ratio] 34.88 kg/m2 Jaclyn Ivory APRN.BULK SEALER OPERATOR Work Phone: [facility] 11-29-2024 13:17-0400 Body weight 78.47 kg Jaclyn Ivory APRN.BULK SEALER OPERATOR Work Phone: [facility] 11-29-2024 13:17-0400 Heart rate 92 /min Jaclyn Ivory APRN.BULK SEALER OPERATOR Work Phone: [facility] 11-29-2024 13:17-0400 SaO2% (BldA) [Mass fraction] 99 % Jaclyn Ivory APRN.BULK SEALER OPERATOR Work Phone: [facility] 10-31-2024 06:58-0400 Body mass index (BMI) [Ratio] 35.08 kg/m2 Jaclyn Ivory APRN.BULK SEALER OPERATOR Work Phone: [facility] 10-31-2024 06:58-0400 Body weight 78.93 kg Jaclyn Ivory APRN.BULK SEALER OPERATOR Work Phone: [facility] 10-31-2024 06:58-0400 Diastolic blood pressure 88 mm[Hg] Jaclyn Ivory APRN.BULK SEALER OPERATOR Work Phone: [facility] 10-31-2024 06:58-0400 Heart rate 98 /min Jaclyn Ivory APRN.BULK SEALER OPERATOR Work Phone: [facility] 10-31-2024 06:58-0400 SaO2% (BldA) [Mass fraction] 97 % Jaclyn Ivory APRN.BULK SEALER OPERATOR Work Phone: [facility] 10-31-2024 06:58-0400 Systolic blood pressure 142 mm[Hg] Jaclyn Ivory APRN.BULK SEALER OPERATOR Work Phone: [facility] 10-02-2024 07:38-0500 Body height 150 cm Jaclyn Ivory APRN.BULK SEALER OPERATOR Work Phone: [facility] 10-02-2024 07:38-0500 Body mass index (BMI) [Ratio] 34.27 kg/m2 Jaclyn Ivory APRN.BULK SEALER OPERATOR Work Phone: [facility] 10-02-2024 07:38-0500 Body weight 77.11 kg Jaclyn Ivory APRN.BULK SEALER OPERATOR Work Phone: [facility] 10-02-2024 07:38-0500 Diastolic blood pressure 98 mm[Hg] Jaclyn Ivory APRN.BULK SEALER OPERATOR Work Phone: [facility] 10-02-2024 07:38-0500 Heart rate 97 /min Jaclyn Ivory APRN.BULK SEALER OPERATOR Work Phone: [facility] 10-02-2024 07:38-0500 SaO2% (BldA) [Mass fraction] 98 % Jaclyn Ivory APRN.BULK SEALER OPERATOR Work Phone: [facility] 10-02-2024 07:38-0500 Systolic blood pressure 154 mm[Hg] Jaclyn Ivory APRN.BULK SEALER OPERATOR Work Phone: [facility] 06-13-2024 14:18-0400 Body height 149.9 cm Michael Milligan MD Work Phone: [facility] 06-13-2024 14:18-0400 Body mass index (BMI) [Ratio] 35.55 kg/m2 Michael Milligan MD Work Phone: [facility] 06-13-2024 14:18-0400 Body weight 79.83 kg Michael Milligan MD Work Phone: [facility] 06-13-2024 14:18-0400 Diastolic blood pressure 102 mm[Hg] Michael Milligan MD Work Phone: [facility] 06-13-2024 14:18-0400 Systolic blood pressure 164 mm[Hg] Michael Milligan MD Work Phone: [facility] 05-28-2023 11:07-0400 Body weight 75.3 kg Lydia Gaona PA-C Work Phone: [facility] 02-09-2023 15:15-0400 Body temperature 97 [degF] Suzi Grubic DO Work Phone: [facility] 02-09-2023 15:15-0400 Diastolic blood pressure 87 mm[Hg] Suzi Grubic DO Work Phone: [facility] 02-09-2023 15:15-0400 Heart rate 89 /min Suzi Grubic DO Work Phone: [facility] 02-09-2023 15:15-0400 Respiratory rate 16 /min Suzi Grubic DO Work Phone: [facility] 02-09-2023 15:15-0400 SaO2% (BldA) [Mass fraction] 97 % Suzi Grubic DO Work Phone: [facility] 02-09-2023 15:15-0400 Systolic blood pressure 134 mm[Hg] Suzi Watkins DO Work Phone: [facility] 02-09-2023 12:16-0400 Body height 149.9 cm Suzi Watkins DO Work Phone: [facility] 02-09-2023 12:16-0400 Body weight 81.65 kg Suzi Watkins DO Work Phone: [facility] 2023 20:03-0400 Diastolic blood pressure 98 mm[Hg] [facility] 2023 20:03-0400 Heart rate 75 /min [facility] 2023 20:03-0400 Respiratory rate 15 /min [facility] 2023 20:03-0400 SaO2% (BldA) [Mass fraction] 94 % [facility] 2023 20:03-0400 Systolic blood pressure 150 mm[Hg] [facility] 2023 19:09-0400 Body temperature 98 [degF] [facility] 2023 18:07-0400 Body height 149.86 cm [facility] 2023 18:07-0400 Body mass index (BMI) [Ratio] 35.6 kg/m2 [facility] 2023 18:07-0400 Body weight 80 kg [facility] 01-11-2023 13:50-0400 Body height 149.9 cm Pac 4 Work Phone: [facility] 01-11-2023 13:50-0400 Body weight 81.65 kg Pac 4 Work Phone: [facility] 11-29-2022 14:26-0400 Body height 149.[address] [facility] 11-23-2022 08:06-0400 Body height 149.9 cm Lydia Gaona PA-C Work Phone: [facility] 11-23-2022 08:06-0400 Body temperature 97.39 [degF] Lydia Wixom PA-C Work Phone: [facility] 11-23-2022 08:06-0400 Body weight 83.19 kg Lydia Wixom PA-C Work Phone: [facility] 11-23-2022 08:06-0400 Diastolic blood pressure 102 mm[Hg] Lydia Candelaria PA-C Work Phone: [facility] 11-23-2022 08:06-0400 Heart rate 88 /min Lydia Candelaria PA-C Work Phone: [facility] 11-23-2022 08:06-0400 SaO2% (BldA) [Mass fraction] 99 % Lydia Wixom PA-C Work Phone: [facility] 11-23-2022 08:06-0400 Systolic blood pressure 151 mm[Hg] Lydia Candelaria PA-C Work Phone: [facility] 10-23-2022 08:37-0500 Body height 149.9 cm Lydia Wixom PA-C Work Phone: [facility] 10-23-2022 08:37-0500 Body weight 81.65 kg Lydia Wixom PA-C Work Phone: [facility] 09-10-2022 11:26-0500 Body height 149.[address] Leon South Work Phone: [facility] 09-10-2022 11:26-0500 Body mass index (BMI) [Ratio] 38.9 kg/m2 Dr. Leon South Work Phone: [facility] 09-10-2022 11:26-0500 Body weight 87.[address] Leon South Work Phone: [facility] 09-10-2022 11:26-0500 Diastolic blood pressure 94 mm[Hg] Dr. Leon South Work Phone: [facility] 09-10-2022 11:26-0500 Heart rate 89 /min Dr. Leon South Work Phone: 3(204)236-366905 [place] [address] 09-10-2022 11:26-0500 SaO2% (BldA) [Mass fraction] 96 % Dr. Leon South Work Phone: 3(989)218-174[address] [place] [address] 09-10-2022 11:26-0500 Systolic blood pressure 142 mm[Hg] Dr. Leon South Work Phone: 5(972)296-376005 [place] [address] 08-18-2022 11:00-0500 Body temperature 97.2 [degF] Dr. Leon South Work Phone: 2(270)318-536205 [place] [address] 08-18-2022 11:00-0500 Diastolic blood pressure 83 mm[Hg] Dr. Leon South Work Phone: 4(393)151-881305 [place] [address] 08-18-2022 11:00-0500 Heart rate 79 /min Dr. Leon South Work Phone: 8(993)206-334705 [place] [address] 08-18-2022 11:00-0500 Respiratory rate 16 /min Dr. Leon South Work Phone: 2(427)883-907605 [place] [address] 08-18-2022 11:00-0500 SaO2% (BldA) [Mass fraction] 97 % Dr. Leon South Work Phone: 5(137)674-224005 [place] [address] 08-18-2022 11:00-0500 Systolic blood pressure 119 mm[Hg] Dr. Leon South Work Phone: 1(539)851-738405 [place] [address] 08-18-2022 09:08-0500 Body height 149.[address] Leon South Work Phone: 5(935)359-117805 [place] [address] Work Phone: 08-18-2022 09:08-0500 Body mass index (BMI) [Ratio] 36.9 kg/m2 Dr. Leon South Work Phone: 7(211)599-032505 [place] [address] 08-18-2022 09:08-0500 Body weight [address] Leon South Work Phone: 8(030)282-980305 [place] [address] 06-17-2022 11:09-0400 Body mass index (BMI) [Ratio] 36.9 kg/m2 Dr. Leon South Work Phone: [facility] 06-17-2022 11:09-0400 Body weight [address] Leon South Work Phone: [facility] 06-17-2022 11:09-0400 Diastolic blood pressure 98 mm[Hg] Dr. Leon South Work Phone: [facility] 06-17-2022 11:09-0400 Heart rate 82 /min Dr. Leon South Work Phone: [facility] 06-17-2022 11:09-0400 SaO2% (BldA) [Mass fraction] 97 % Dr. Leon South Work Phone: [facility] 06-17-2022 11:09-0400 Systolic blood pressure 153 mm[Hg] Dr. Leon South Work Phone: [facility] 08-30-2017 18:41-0500 Body Temperature 98.6 [degF] Akbar Lovenicolasa [facility] Work Phone: 08-30-2017 18:41-0500 BP Diastolic 110 mm[Hg] Akbar Tubbs [facility] Work Phone: 08-30-2017 18:41-0500 BP Systolic 180 mm[Hg] Akbar Tubbs [facility] Work Phone: 08-30-2017 18:41-0500 Pulse (Heart Rate) 80 /min [facility] Work [facility]: 08-30-2017 18:41-0500 Pulse Oximetry 98 % Akbar Tubbs [facility] Work Phone: 08-30-2017 18:41-0500 Respiratory Rate 16 /min [facility] Work Phone: 08-30-2017 18:41-0500 Weight 70.31 kg [facility] Work Phone: Encounters Encounter Date Encounter Type Care Provider Facility Start: 03-29-2025 End: 03-29-[address] Vijay Godinez MD Work Phone: -Outpatient Breast Imaging Start: 03-29-2025 End: 03-29-[address] Robbin Ma MD -Outpatient Breast Imaging Work Phone: Start: 03-29-2025 End: 03-29-2025 ambulatory Robbin Ma Facility:[facility] Start: 01-10-2025 End: 01-10-2025 Patient encounter procedure Jaclyn Ivory APRN.BULK SEALER OPERATOR Work Phone: OB/Gynecology Comment on above: Hypertension, essent ial (Primary Dx); GERD without esophagitis; Hyperinsulinemia; Metabolic syndrome; Nonalcoholic fatty liver disease; Class 1 obesity with serious comorbidity and body mass index (BMI) of 34.0 to 34.9 in adult, unspecified obesity type Start: 01-10-2025 End: 01-10-2025 ambulatory [facility] Facility:[facility] Start: 11-29-2024 End: 11-29-2024 Patient encounter procedure Jaclyn Ivory APRN.BULK SEALER OPERATOR Work Phone: OB/Gynecology Comment on above: Hypertension, essent ial (Primary Dx); GERD without esophagitis; Hyperinsulinemia; Metabolic syndrome; Nonalcoholic fatty liver disease; Class 1 obesity with serious comorbidity and body mass index (BMI) of 34.0 to 34.9 in adult, unspecified obesity type Start: 11-29-2024 End: 11-29-2024 ambulatory JACLYN IVORY Facility:[facility] Start: 10-31-2024 End: 10-31-2024 ambulatory JACLYN IVORY Facility:[facility] Start: 10-31-2024 End: 10-31-2024 Patient encounter procedure Jaclyn Ivory APRN.BULK SEALER OPERATOR Work Phone: OB/Gynecology Comment on above: Hypertension, essent ial (Primary Dx); GERD without esophagitis; Hyperinsulinemia; Metabolic syndrome; Nonalcoholic fatty liver disease; Class 1 obesity with serious comorbidity and body mass index (BMI) of 34.0 to 34.9 in adult, unspecified obesity type Start: 10-03-2024 End: 12-03-2024 Follow-up encounter Jaclyn Ivory APRN.BULK SEALER OPERATOR Work Phone: OB/Gynecology Start: 10-02-2024 End: 10-02-2024 ambulatory JACLYN IVORY Facility:[facility] Start: 10-02-2024 End: 10-02-2024 Patient encounter procedure [...] End: 09-28-2024 E-mail encounter from caregiver Jaclyn Elisabeth ESPINOSA Work Phone: OB/Gynecology Start: 09-28-2024 End: 09-28-2024 Patient encounter procedure Jaclyn Ivory APRN.CNP Work Phone: OB/Gynecology Comment on above: Jaclyn maldonado ent 10/02/2024 Start: 06-13-2024 End: 06-13-2024 ambulatory MICHAEL MILLIGAN Facility:[facility] Start: 06-13-2024 End: 06-13-2024 Patient encounter procedure Michael Milligan MD Work Phone: OB/Gynecology Comment on above: Encounter for gyneco logical examination (general) (routine) without abnormal findings (Primary Dx); Screening for cervical cancer; Encounter for screening for human papillomavirus (HPV) Start: 06-13-2024 End: 06-13-2024 Patient encounter status Michael Milligan MD Work Phone: [facility] Start: 05-07-2024 ambulatory VIJAY HELMS [facility] Start: 05-07-2024 Encounter for genera l adult medical examination without abnormal findings VIJAY HELMS [facility] Start: 11-29-2023 Telephone encounter Suzi orozco DO Work Phone: General Surgery Comment on above: Orders Start: 05-28-2023 End: 05-28-2023 ambulatory Lydia Gaona PA-C Work Phone: Gastroenterology Comment on above: Nonalcoholic fatty l iver disease (Primary Dx); Elevated liver enzymes Start: 05-28-2023 End: 05-28-2023 Telemedicine consultation with patient Lydia Gaona PA-C Work Phone: [facility] Start: 02-24-2023 End: 02-24-2023 ambulatory Suzi Watkins DO Work Phone: General Surgery Comment on above: Hiatal hernia with G ERD without esophagitis (Primary Dx); Esophageal dysphagia; Class 1 obesity due to excess calories without serious comorbidity with body mass index (BMI) of 34.0 to 34.9 in adult; Gastroparesis Start: 02-24-2023 End: 02-24-2023 Telemedicine consultation with patient Suzi Watkins DO Work Phone: [facility] Start: 02-11-2023 ambulatory Suzi centeno DO Work Phone: General Surgery Start: 02-09-2023 ambulatory SUZI WATKINS Facilit y:[facility] Start: 02-09-2023 End: 02-09-2023 Subsequent hospital visit by physician Suzi Watkins DO Work Phone: [facility] Comment on above: Gastroesophageal ref lux disease without esophagitis [K21.9] Start: 02-04-2023 ambulatory Suzi centeno DO Work Phone: [facility] Start: 01-18-2023 Telephone encounter Suzi orozco DO Work Phone: [facility] Comment on above: Patient Update Start: 2023 End: 2023 Emergency department patient visit [facility]gency Department Start: 01-12-2023 ambulatory Adrianna alejo DO Work Phone: Gastroenterology Comment on above: EGG RESULTS Start: 01-11-2023 End: 01-11-2023 Admission to [place] [id number] Work Phone: [place] Start: 01-11-2023 End: 01-11-[address] [facility] 4 Work Phone: Pre Anesthesia Comment on above: Preop examination (P rimary Dx) Start: 01-11-2023 End: 01-11-2023 Preprocedural examination done [facility] Work Phone: Pre Anesthesia Start: 01-06-2023 End: 01-07-2023 ambulatory [facility] Facility:[facility] Start: 11-29-2022 End: 11-29-[address] Nutrition Therapy Comment on above: Nonalcoholic fatty l iver disease (Primary Dx); Elevated liver enzymes; Gastroparesis; BMI 37.0-37.9, adult; Dietary counseling and surveillance Start: 11-29-2022 End: 11-29-2022 Telemedicine consultation with patient Triny Higuera RD [facility] Start: 11-25-2022 Orders Only Lydia Azar Work Phone: Gastroenterology Comment on above: Nonalcoholic fatty l iver disease (Primary Dx); Elevated liver enzymes Start: 11-23-2022 End: 11-23-2022 Patient encounter procedure Lydia Gaona PA-C Work Phone: Gastroenterology Comment on above: Nonalcoholic fatty l iver disease (Primary Dx); Elevated liver enzymes; Gastroparesis Start: 11-23-2022 End: 11-23-2022 ambulatory Hepatology A5 Work Phone: Gastroenterology Start: 11-23-2022 End: 11-23-2022 Patient encounter procedure Hepatology Procedures A5 Work Phone: [facility] Start: 10-23-2022 End: 10-23-2022 ambulatory Lydia Gaona PA-C Work Phone: Gastroenterology Comment on above: Nonalcoholic fatty l iver disease (Primary Dx); Elevated liver enzymes Start: 10-23-2022 End: 10-23-2022 Telemedicine consultation with patient Lydia Gaona PA-C Work Phone: [facility] Start: 10-15-2022 Telephone encounter Adrianna Fountain DO Work Phone: Gastroenterology Comment on above: Pre appointment brandon leon Start: 10-14-2022 End: 10-14-2022 Subsequent hospital visit by physician [facility] Work Phone: Nuclear Medicine Start: 09-23-2022 End: 09-23-[address] Leon South Work Phone: [facility] Work Phone: Start: 09-23-2022 End: 09-23-[address] Leon South [facility] Start: 09-10-2022 End: 09-10-[address] Leon South Work Phone: [facility] Work Phone: Start: 09-10-2022 End: 09-10-[address] Leon South Work Phone: [facility] Gastroenterology Start: 08-18-2022 Non-patient / Non-visit Dr. Valentine South Work Phone: [facility] Start: 08-18-2022 End: 08-18-2022 Admission to same day surgery center Dr. Leon South Work Phone: [facility]-Endoscopy Start: 08-18-2022 End: 08-18-[address] Leon South Work Phone: [facility] Work Phone: Start: 08-17-2022 Mairbeth Craig on PA-C Work Phone: [facility] Comment on above: Refill Request Start: 06-17-2022 End: 06-17-[address] Leon South Work Phone: [facility] Gastroenterology Start: 03-22-2022 Refill Yandel Craig on PA-C Work Phone: [facility] [place] Comment on above: Refill Request Start: 12-23-2021 ambulatory Yandel Craig on PA-C Work Phone: [facility] Start: 12-23-2021 Follow-up encounter Yandel Stacy PA-C Work Phone: [facility] [place] Comment on above: GI follow up Start: 09-22-2017 Ambulatory [facility] Start: 08-30-2017 End: 08-30-2017 Ambulatory [facility] Start: 08-30-2017 End: 08-31-2017 Emergency department [facility] Start: 08-30-2017 End: 08-30-2017 Ambulatory [facility] Start: 08-30-2017 Patient encounter Akbar levy Work Phone: [facility] [place] Procedures Date Procedure Procedure Detail Performing Clinician Start: 03-29-[address] Vijay Godinez MD Work Phone: Start: 2023 CT of abdomen and pelvis without contrast Start: 11-23-2022 Liver elastography w/o imag w/i&r Lydia S asser PA-C Work Phone: Start: 10-14-2022 Gastric emptying imaging study Michael vazquez APRN.CNP Work Phone: Start: 09-23-2022 Radionuclide [...] malignant neoplasm of cervix Cervical Cancer Screening [facility] Start: 02-07-2029 Urine microalbumin profile [facility] Start: 06-13-2025 End: 06-13-2025 Patient encounter procedure 06/13/2025 8:40 AM EDT Office Visit OB/Gynecology [address] [place] [address] Michael Milligan MD [address] [place] [address] Annual OB/Gynecology Comment on above: Annual Start: 04-15-2025 Influenza vaccination Influenza Vaccine (Season Ended) [facility] Start: 04-12-2025 End: 04-12-2025 Patient encounter procedure 04/12/2025 7:30 AM EDT Office Visit OB/Gynecology [address] [place] [address] Jaclyn Ivory APRN.BULK SEALER OPERATOR [address] [place] [address] Wt MGT follow up OB/Gynecology Comment on above: Wt MGT follow up Start: 01-10-2025 End: 01-10-2025 Patient encounter procedure 01/10/2025 7:30 AM EDT Office Visit OB/Gynecology [address] [place] [address] Jaclyn Ivory APRN.BULK SEALER OPERATOR [address] [place] [address] wt mgmt f/u OB/Gynecology Comment on above: wt mgmt f/u Start: 11-29-2024 End: 11-29-2024 Patient encounter procedure 11/29/2024 7:30 AM EDT Office Visit OB/Gynecology [address] [place] [address] Jaclyn Ivory APRN.BULK SEALER OPERATOR [address] [place] [address] wt mgmt f/u OB/Gynecology Comment on above: wt mgmt f/u Start: 10-31-2024 End: 10-31-2024 Patient encounter procedure 10/31/2024 7:00 AM EDT Office Visit OB/Gynecology [address] [place] [address] Jaclyn Ivory APRN.BULK SEALER OPERATOR [address] [place], [place] [id number] wt mgmt f/up OB/Gynecology Comment on above: wt mgmt f/up Start: 10-02-2024 End: 01-01-2025 Hemoglobin A1c in Blood [facility] Comment on above: Expected: 10/02/2024, Expires: Start: 10-02-2024 End: 01-01-2025 Insulin [Units/volume] in Serum or Plasma [facility] Work Phone: Comment on above: Expected: 10/02/2024, Expires: Start: 10-02-2024 End: 01-01-2025 Lipid 1996 panel - Serum or Plasma [facility] Comment on above: Expected: 10/02/2024, Expires: Start: 10-02-2024 End: 10-02-2024 Patient encounter procedure 10/02/2024 8:00 AM EST Office Visit OB/Gynecology [address] [place], [place] [id number] Jaclyn Ivory APRN.BULK SEALER OPERATOR [address] [place] [address] New weight management consult OB/Gynecology Comment on above: New weight management consult Start: 05-08-2024 HPV TESTING HPV TESTING [facility] Start: 05-08-2024 PAP TESTING PAP TESTING [facility] Start: 05-08-2024 Screening for malignant neoplasm of cervix [facility] Start: 04-15-2024 Covid-19 Vaccine () Covid-19 Vaccine ( season) [facility] Start: 04-15-2024 Influenza vaccination [facility] Start: 08-15-2023 Behavioral Health Screening Behavioral Health Screening [facility] Start: 05-28-2023 End: 07-28-2023 Hepatic function 2000 panel - Serum or Plasma HEPATIC FUNCTION PNL Lab Routine Nonalcoholic fatty liver disease Elevated liver enzymes Expected: 05/28/2023, Expires: 07/28/2023 [facility] Work Phone: Comment on above: Expected: 05/28/2023, Expires: 3 Start: 05-28-2023 End: 07-28-2023 HEPATITIS A ANTIBODY, IGG HEPATITIS A ANTIBODY, IGG Lab Routine Nonalcoholic fatty liver disease Elevated liver enzymes Expected: 05/28/2023, Expires: 07/28/2023 [facility] Work Phone: Comment on above: Expected: 05/28/2023, Expires: 3 Start: 05-28-2023 End: 07-28-2023 Hepatitis B virus surface Ab [Presence] in Serum HEP B SURF AB Lab Routine Nonalcoholic fatty liver disease Elevated liver enzymes Expected: 05/28/2023, Expires: 07/28/2023 [facility] Work Phone: Comment on above: Expected: 05/28/2023, Expires: 3 Start: 05-22-2023 Hepatitis a & b vaccine hepa-hepb adult im HEP A-HEP B VACCINE (TWINRIX) Immunization/Injection Routine Nonalcoholic fatty liver disease Elevated liver enzymes Expected: 05/22/2023 [facility] Work Phone: Comment on above: Expected: 05/22/2023 Start: 04-15-2023 Covid-19 Vaccine () Covid-19 Vaccine () [facility] Start: 04-15-2023 Influenza vaccination [facility] Start: 12-23-2022 Hepatitis a & b vaccine hepa-hepb adult im HEP A-HEP B VACCINE (TWINRIX) Immunization/Injection Routine Nonalcoholic fatty liver disease Elevated liver enzymes Expected: 12/23/2022 [facility] Work Phone: Comment on above: Expected: 12/23/2022 Start: 12-21-2022 HEPATITIS B (2 of 3 - Hep B Twinrix 3-dose series) HEPATITIS B (2 of 3 - Hep B Twinrix 3-dose series) [facility] Start: 12-21-2022 Hepatitis B Vaccine (2 of 3 - Hep B Twinrix 3-dose series) Hepatitis B Vaccine (2 of 3 - Hep B Twinrix 3-dose series) [facility] Start: 10-23-2022 End: 12-23-2022 ALPHA 1 ANTITRYPSIN PHENOTYPE ALPHA 1 ANTITRYPSIN PHENOTYPE Lab Routine Nonalcoholic fatty liver disease Elevated liver enzymes Expected: 10/23/2022, Expires: 12/23/2022 [facility] Work Phone: Comment on above: Expected: 10/23/2022, Expires: Start: 10-23-2022 End: 12-23-2022 [id number] [Mass/volume] in Serum or Plasma ALPHA FETOPROTEIN BL Lab Routine Nonalcoholic fatty liver disease Elevated liver enzymes Expected: 10/23/2022, Expires: 12/23/2022 [facility] Work Phone: Comment on above: Expected: 10/23/2022, Expires: 3 Start: 10-23-2022 End: 12-23-2022 ZEB BY IFA WITH REFLEX ZEB BY IFA WITH REFLEX Lab Routine Nonalcoholic fatty liver disease Elevated liver enzymes Expected: 10/23/2022, Expires: 12/23/2022 [facility] Work Phone: Comment on above: Expected: 10/23/2022, Expires: 3 Start: 10-23-2022 End: 12-23-2022 Basic metabolic 2000 panel - Serum or Plasma BASIC METABOLIC PNL Lab Routine Nonalcoholic fatty liver disease Elevated liver enzymes Expected: 10/23/2022, Expires: 12/23/2022 [facility] Work Phone: Comment on above: Expected: 10/23/2022, Expires: 3 Start: 10-23-2022 End: 12-23-2022 CBC W Auto Differential panel - Blood CBC + DIFF Lab Routine Nonalcoholic fatty liver disease Elevated liver enzymes Expected: 10/23/2022, Expires: 12/23/2022 [facility] Work Phone: Comment on above: Expected: 10/23/2022, Expires: 3 Start: 10-23-2022 End: 12-23-2022 Ceruloplasmin [Mass/volume] in Serum or Plasma CERULOPLASMIN BLD Lab Routine Nonalcoholic fatty liver disease Elevated liver enzymes Expected: 10/23/2022, Expires: 12/23/2022 [facility] Work Phone: Comment on above: Expected: 10/23/2022, Expires: 3 Start: 10-23-2022 End: 12-23-2022 Chronic hepatitis differentiation between hepatitis B and C virus panel - Serum or Plasma HEP REMOTE PANEL BL Lab Routine Nonalcoholic fatty liver disease Elevated liver enzymes Expected: 10/23/2022, Expires: 12/23/2022 [facility] Work Phone: Comment on above: Expected: 10/23/2022, Expires: 3 Start: 10-23-2022 End: 12-23-2022 Ferritin [Mass/volume] in Serum or Plasma FERRITIN BLD Lab Routine Nonalcoholic fatty liver disease Elevated liver enzymes Expected: 10/23/2022, Expires: 12/23/2022 [facility] Work Phone: Comment on above: Expected: 10/23/2022, Expires: 3 Start: 10-23-2022 End: 12-23-2022 Hepatic function 2000 panel - Serum or Plasma HEPATIC FUNCTION PNL Lab Routine Nonalcoholic fatty liver disease Elevated liver enzymes Expected: 10/23/2022, Expires: 12/23/2022 [facility] Work Phone: Comment on above: Expected: 10/23/2022, Expires: 3 Start: 10-23-2022 End: 12-23-2022 HEPATITIS A ANTIBODY, IGG HEPATITIS A ANTIBODY, IGG Lab Routine Nonalcoholic fatty liver disease Elevated liver enzymes Expected: 10/23/2022, Expires: 12/23/2022 [facility] Work Phone: Comment on above: Expected: 10/23/2022, Expires: 3 Start: 10-23-2022 End: 12-23-2022 Iron and Iron binding capacity panel - Serum or Plasma IRON + TIBC Lab Routine Nonalcoholic fatty liver disease Elevated liver enzymes Expected: 10/23/2022, Expires: 12/23/2022 [facility] Work Phone: Comment on above: Expected: 10/23/2022, Expires: 3 Start: 10-23-2022 End: 12-23-2022 Lipid 1996 panel - Serum or Plasma LIPID PANEL BASIC Lab Routine Nonalcoholic fatty liver disease Elevated liver enzymes Expected: 10/23/2022, Expires: 12/23/2022 [facility] Work Phone: Comment on above: Expected: 10/23/2022, Expires: 3 Start: 10-23-2022 End: 12-23-2022 Mitochondria Ab [Presence] in Serum by Immunofluorescence MITOCHONDRIAL M2 IGG SERUM Lab Routine Nonalcoholic fatty liver disease Elevated liver enzymes Expected: 10/23/2022, Expires: 12/23/2022 [facility] Work Phone: Comment on above: Expected: 10/23/2022, Expires: 3 Start: 10-23-2022 End: 12-23-2022 Smooth muscle Ab [Presence] in Serum SMOOTH MUSCLE AB SCR Lab Routine Nonalcoholic fatty liver disease Elevated liver enzymes Expected: 10/23/2022, Expires: 12/23/2022 [facility] Work Phone: Comment on above: Expected: 10/23/2022, Expires: 3 Start: 09-24-2022 ANNUAL PCP TEAM CHRONIC DISEASE VISIT ANNUAL PCP TEAM CHRONIC DISEASE VISIT [facility] Start: 08-18-2022 Egd transoral biopsy single/multiple EGD BIOPSY SINGLE/MULTIPLE [facility] Start: 08-18-2022 Patient discharge [facility] Start: 08-15-2022 DEPRESSION ASSESSMENT DEPRESSION ASSESSMENT [facility] Start: 05-05-2022 Adult depression screening assessment DEPRESSION SCREENING [facility] Start: 04-15-2022 Influenza vaccination [facility] Start: 09-01-2021 COVID-19 VACCINE (4 - Booster for Pfizer series) COVID-19 VACCINE (4 - Booster for Pfizer series) [facility] Start: 09-01-2021 COVID-19 VACCINE (4 - Pfizer series) COVID-19 VACCINE (4 - Pfizer series) [facility] Start: 04-15-2017 Influenza vaccination SEQUENTIAL INFLUENZA VACCINE (#1) [facility] Work Phone: Start: 2005 Anxiety Screening Anxiety Screening [facility] Start: 2005 BP CONTROLLED (<130/80) BP CONTROLLED (<130/80) [place] Start: 2005 Depression Screening Depression Screening [facility] Start: 1987 HEPATITIS B (1 of 3 - 3-dose series) HEPATITIS B (1 of 3 - 3-dose series) [facility] Start: 1987 Screening for malignant neoplasm of cervix [facility] Work Phone: Start: 1987 Tetanus vaccination TETANUS EVERY 10 YR [facility] Work Phone: DDI VIBRATION CONTRO LLED TRANSIENT ELASTOGRAPHY (VCTE) DDI VIBRATION CONTROLLED TRANSIENT ELASTOGRAPHY (VCTE) Endoscopy Routine Nonalcoholic fatty liver disease Elevated liver enzymes Ordered: 10/23/2022 [facility] Work Phone: Comment on above: Ordered: 10/23/2022 DDI VIBRATION CONTRO LLED TRANSIENT ELASTOGRAPHY (VCTE) DDI VIBRATION CONTROLLED TRANSIENT ELASTOGRAPHY (VCTE) Endoscopy Routine Nonalcoholic fatty liver disease Elevated liver enzymes Ordered: 05/28/2023 [facility] Work Phone: Comment on above: Ordered: 05/28/2023 End: 02-09-2023 EGD - THERAPEUTIC, EUS, OR TUBE INTERVENTIONS EGD - THERAPEUTIC, EUS, OR TUBE INTERVENTIONS Endoscopy Routine Gastroesophageal reflux disease without esophagitis Delayed gastric emptying NAFLD (nonalcoholic fatty liver disease) Esophageal dysphagia 1 Occurrences starting 02/09/2023 until 02/09/2023 [facility] Work Phone: Comment on above: 1 Occurrences starting 02/09/2023 until 02/09/2023 Electrogastrography dx transcutaneous EGG (ELECTROGASTROGRAPHY) Procedures Routine Gastroparesis Ordered: 10/18/2022 [facility] Work Phone: Comment on above: Ordered: 10/18/2022 End: 11-23-2023 Hepatic function 2000 panel - Serum or Plasma HEPATIC FUNCTION PNL Lab Routine Nonalcoholic fatty liver disease Elevated liver enzymes Every 3 months for 2 Occurrences starting 11/23/2022 until 11/23/2023 [facility] Work Phone: Comment on above: Every 3 months for 2 Occurrences startin g 11/23/2022 until 11/23/2023 PAP TEST PAP TEST Lab Liliana solitario Encounter for gynecological examination (general) (routine) without abnormal findings Screening for cervical cancer Encounter for screening for human papillomavirus (HPV) 06/13/2024 3:02 PM EDT [facility] Work Phone: Patient Education ED Kidney Stone w/ Coli c [facility] Work Phone: Patient referral [facility] Work Phone: End: 02-09-2023 PH HUERTA INSERT OFF MEDS PH HUERTA INSERT OFF MEDS Endoscopy Routine Gastroesophageal reflux disease without esophagitis Delayed gastric emptying NAFLD (nonalcoholic fatty liver disease) Esophageal dysphagia 1 Occurrences starting 02/09/2023 until 02/09/2023 [facility] Work Phone: Comment on above: 1 Occurrences starting 02/09/2023 until 02/09/2023 End: 11-28-2024 PH HUERTA INSERT OFF MEDS PH HUERTA INSERT OFF MEDS Endoscopy Routine Esophageal dysphagia 1 Occurrences starting 11/29/2023 until 11/28/2024 [facility] Work Phone: Comment on above: 1 Occurrences starting 11/29/2023 until 11/28/2024 Radionuclide gastric emptying study [facility] Ultrasound elastography [facility] US Abdomen limited [facility] Immunizations Immunization Date Immunization Notes Care Provider Ramila handley 11-23-2022 hepatitis A and hepatitis B vaccine Lydia Gaona PA-C Work Phone: [facility] 11-23-2022 hepatitis B vaccine, unspecified formulation Lydia Candelaria FAJARDO Work Phone: [facility] 02-07-2019 tetanus toxoid, redu ayush diphtheria toxoid, and acellular pertussis vaccine, adsorbed JEROME INGRAM-Charlee Work Phone: [facility] 05-31-2018 influenza virus vaccine, unspecified formulation NA Stacy NATALY-Charlee Work Phone: [facility] 02-06-2016 TD(adult) unspecifie d formulation NA Regis INGRAM-Charlee Work Phone: [facility] 02-06-2016 tetanus and diphther ia toxoids, adsorbed, preservative free, for adult use (2 Lf of tetanus toxoid and 2 Lf of diphtheria toxoid) Dr. Leon South Work Phone: [facility] Payers Date Payer Category Payer Self-pay [id number] 2024 [facility] [id number] 2024 Unknown [id number] 2015 Private Health Insurance [id number] 2015 Private Health Insurance JAMSHID LIZARRAGA MANAGED CHOICE POS [id number] 2015-Present [phone] [address] [place] [address] POS [id number] 2015 Private Health Insurance [id number] 1987 Unknown [id number] Private Health Insurance [facility] [id number] Unknown [facility] [id number] Unknown [facility] [id number] Unknown [employer] [id number] Unknown [id number] Social History Date Type Detail Facility Start: 08-30-2017 End: 2023 Tobacco smoking status NHIS Never smoker [facility] Start: 1985 Sex Assigned At Not on file [facility] Work Phone: Start: 11-17-2016 End: 11-23-2022 Tobacco use and exposure Smokeless tobacco non-user [facility] Start: 09-24-2021 End: 01-10-2025 Alcohol intake Current drinker of alcohol (finding) [facility] Start: 12-13-2019 End: 09-22-2020 History SDOH Alcohol Frequency 2 [facility] Start: 12-13-2019 End: 09-22-2020 History SDOH Alcohol Std Drinks 1 [facility] Start: 08-31-2018 History SDOH Alcohol Comment Social, not while [facility] Start: 12-13-2019 History SDOH Social Connections Phone 5 [facility] Start: 12-13-2019 History SDOH Social Connections Oriental Orthodox 3 [facility] Start: 12-13-2019 History SDOH Stress 4 [facility] Start: 12-12-2019 Education 18 [facility] Start: 08-17-2022 End: 2023 Tobacco smoking status NHIS Unknown if ever smoked [facility] Start: 03-19-2019 None [facility] Start: 1985 Sex Assigned At Female [facility] Start: 12-12-2019 End: 01-06-2023 History of Social function [facility] Start: 12-12-2019 End: 01-06-2023 Social connection and isolation panel [facility] Do you belong to any clubs or organizations such as quaker groups, unions, fraternal or athletic groups, or school groups? Yes [facility] Are you now , , , , never or living with a partner? [facility] How often to you hav e a drink containing alcohol? Monthly or less [facility] How many standard drinks containing alcohol do you have on a typical day? 1 or 2 [facility] How often do you hav e 6 or more drinks on 1 occasion? Never [facility] How hard is it for y ou to pay for the very basics like food, housing, medical care, and heating Not hard at all [facility] Do you feel stress - tense, restless, nervous, or anxious, or unable to sleep at night because your mind is troubled all the time - these days [OSQ] Rather much [facility] (I/We) worried sara er (my/our) food would run out before (I/we) got money to buy more. Never true [facility] In the past 12 month s, was there a time when you were not able to pay the mortgage or rent on time? No [facility] Start: 09-21-2020 Gender identity Identifies as female gender (finding) [facility] NEGATED: Highlighted row [facility] Goals Date Patient Goal Desired Activity /State Mental Status Date Assessment Result Facility 2023 Cognitive function Level Of Cons ciousness Awake;Alert;Appropriate;Follow s Commands [facility] Work Phone: 08-18-2022 Cognitive function Voice/Name [facility] Work Phone: Clinical Notes 03-02-2019 to 01-10-2025 Jaclyn Ivory APRN.RUBINA - 01/10/2025 7:30 AM EDTPatient InstructionsJaclyn Ivory APRN.CNP - 11/29/2024 1:30 PM EDTPatient InstructionsPatient InstructionsPatient [...] sweet tea Subway - 6 in wheat Lao parra veg sweet tea Red Lobster - shrimp scampi, 2 biscuits, occas Anshul salad, sweet tea Green [place] - chicken fingers, fries or smothered grilled [...] of sugar sweetened beverages, and skip meals. Soil Technician of impaired eating habits:emotion and stress causes [...] S - 3 pm Chomp D - [id number] Chipotle - Chicken, white rice, black beans, [...] exercise? no Work-related activity:Sedentary. 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 An overall goal of 150-200 minutes [...] 4 - Moderate documented in this encounter [facility] 01-10-2025 Note HNO ID: [id number] Author: JACLYN IVORY APRN.CNP Service: ? Author [...] - SKIP/ WE if did not eat [employer]'s RB sandwich with sauce or leftovers S - none D - 7-8 pm lasagne or tacos or sausage rice casserole or teriyaki chicken and rice or grilled meat/baked potato with tea with SF drink mixes. eats out 3-4 times a week Chipotle - Steak, white rice, black beans, s cream, cheese, corn tomatoes, chips, sweet tea Subway - 6 in wheat Lao parra veg sweet tea Red Lobster - shrimp scampi, 2 biscuits, occas Anshul salad, sweet tea Green [place] - chicken fingers, fries or smothered grilled [...] of sugar sweetened beverages, and skip meals. Soil Technician of impaired eating habits:emotion and stress causes [...] S - 3 pm Chomp D - [id number] Chipotle - Chicken, white rice, black beans, [...] exercise? no Work-related activity:Sedentary. 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 [...] No current facility-adm (more content not included)... [facility] 01-09-2025 Instructions Jaclyn Ivory APRN.BULK SEALER OPERATOR - 01/09/2025 4:34 PM EDT Images from [...] protein & 2g carb Two Good Lowfat Solomon Islander Yogurt, Lower Sugar - 12g protein & [...] oz is 28 gm protein Beef, Chicken, [place], Pork, Duran 1 oz 7g Fish, Tuna [...] (not a meal replacement) Protein AND carbs Beef/[place] Jerky 1 oz dried 10-15g protein - check carb count, can be high if sugar added Slim Jerardo - 6 gm protein and 4 net carb Great Value original turkey sausage sticks - 7 gm protein and 2 gm carb [facility]armila & Sh[facility]am [facility] Original smoked sausage sticks - 8 gm protein and 0 carb Imitation Crab Meat 1 oz - 2g protein & 4g carb Milk, skim 2% or 1% 8 oz - 8g protein & 12g carb Fairlife 2% milk 8 oz -13g protein & 6g car Solomon Islander yogurt Full Fat Solomon Islander Yogurt 1 cup - 20.4g protein & 9.1g carb 2% Solomon Islander Yogurt 1 cup - 22.7g protein & 9.1g carb 0% (fat-free) Solomon Islander Yogurt - 1 cup 24g protein & 9.3g carb Aldi Protein Solomon Islander yogurt single svg - 13/g15g protein & 7g carb Chobani Zero Sugar single svg: - 12g protein & 5g carb Dannon Solomon Islander Light + Fit 1 single svg - 12g protein & 9g carb Oikos Pro single svg - 20g protein & 8g carb Oikos Triple Zero Solomon Islander Nonfat Yogurt 1 single svg - 15g protein & 7g carb :ratio, KETO Friendly Dairy Snack 1 single svg - 15g protein & 2g carb :ratio Protein 1 single svg - 25g protein & 8g carb Two Good Lowfat [place] Islander Yogurt, [place], Lower Sugar - 12g protein & 2g carb Yoplait Protein 1 single svg 15g protein & 5g carb Dairy Free - [place] unsweetened [place] Islander almond/soy 15g protein & 3g carb Dairy Free - True Goodness by [facility] coconut-based yogurt alternative 1 g protein [...] Cream Cheese 1.7g protein & 1.2g carb [employer]Cert whipped Solomon Islander cream cheese (WM) 2 T 3g protein 2g carb Feta 4g protein & 1.2g carb Mozzarella 6.3g protein & 0.6g carb Parmesan 10g protein & 0.9g carb Gabonese 7.6g protein & 1.5g carb Cottage Cheese 1/2 c Breakstone 2% 13g protein 7g carb Kayleigh 2% 13g protein 5 g carb Good Culture 2% 14g protein 3g carb Lactaid 13g protein 5g carb Ma s Low Fat 12g protein & 4g carb Legumes Lentils cup 9g protein & 20g carb Ann beans cup 7g protein & 20g carb Kidney, Black, [place], Cannellini beans cup 8g protein & 20g carb Chickpeas 1/2 c 6g protein & 15g carb Soybeans 1/2 c 14g complete protein & 8.5g carb [place] milk, unsweetened 8 oz 1g protein & 2g carb Soy milk 8 oz 3.5g protein & 1.6g carb Tofu 1/2 cup 10g protein & 2.3g carb Peanut butter, natural 2 Tbsp 7-8g protein & 4g net carbs, 190 calories PB2 powder 2 Tbsp 6g protein & 5g carb Nuts and Seeds per oz Almonds - 5.9g protein & 6.1g carb [place] Nuts - 4.0g protein & 3.4g carb [...] Seeds - 6.9g protein & 5g carb [place] Seeds - 5.8g protein & 5.6g carb Walnuts - 4.3g protein & 3.8g carb Edamame Beans (soybean) snack 1 pack 11 gm complete protein 2 carb 5 (FIVE) gram carb vegetable options 1 cup raw OR cup cooked: Asparagus [place]olson sprouts Beets Broccoli Brussel sprouts Cabbage Carrots Cauliflower Celery [place] Eggplant Green beans Lettuce Peppers Snap peas [...] High Protein Snack Ideas 1. Jerky 2. [place] mix without dried fruit 3. [place] roll-ups 4. [place] Islander yogurt 5. Veggies and yogurt dip 6. Tuna 7. Hard-boiled eggs 8. Peanut butter with celery 9. Cheese slices/ Cheese Stick 10. Handful of almonds, peanuts or walnuts 11. Cottage Cheese 12. Beef sticks 13. Protein bars 14. Canned [place] 15. Pumpkin seeds 16. Nut butter 17. Protein shake or protein bar 18. Avocado and chicken salad 19. Egg muffins 20. Leftover protein or lunch meat 21. 1/2 c blended cottage cheese or Solomon Islander yogurt with dry ranch/Mrs. Dash/herb seasoning mix [...] understood. Topiramate affects body mass index, fasting pwmefbj-ex-yskljhr ratio, and serum leptin and cortisol levels. [...] at or call local emergency services at 087. What other information should I know? Keep all appointments with your doctor and the laboratory. Do not let anyone else take your medication. Topiramate use needs to be monitored closely. Prescriptions may be refilled only a limited number of times. Keep a written list of all of your prescription and nonprescription (whtk-dnp-emnpuws) medicines, in addition to vitamins, minerals, or [...] make up for a missed one. Sources [facility]: http://www.ncbi.nlm.nih.gov/pubm edhealth/UPC4754825/ Drugs.com http://www.drugs.com/pro/topiram ate.html TOPIRAMATE -- Take 25mg [...] understood. Topiramate affects body mass index, fasting ceqvhft-el-tlmiyos ratio, and serum leptin and cortisol levels. [...] at or call local emergency services at 038. What other information should I know? Keep all appointments with your doctor and the laboratory. Do not let anyone else take your medication. Topiramate use needs to be monitored closely. Prescriptions may be refilled only a limited number of times. Keep a written list of all of your prescription and nonprescription (unjy-ogv-kfcpdfm) medicines, in addition to vitamins, minerals, or [...] a missed one. Sources [employer] [facility]: http://www.ncbi.nlm.nih.gov/pubm edhealth/IYQ3448571/ Drugs.com http://www.drugs.com/pro/topiram ate.html Why Is Protein So [...] are economical and optimized for taste by Cigital - they are designed to make you [...] Likely WEIGHT LOSS documented in this encounter [facility] 11-29-2024 History of Presen t illness Narrative [...] sweet tea Subway - 6 in wheat Lao parra veg sweet tea Red Lobster - shrimp scampi, 2 biscuits, occas Anshul salad, sweet tea Green [place] - chicken fingers, fries or smothered grilled [...] of sugar sweetened beverages, and skip meals. Soil Technician of impaired eating habits:emotion and stress causes [...] broasted chicken thigh breaded shrimp/g beans/noodles at [facility] S - none Fluids - water Current Barriers: large portion sizes, inadequate sleep duration, and reduced physical activity Exercise: none Regular exercise: no Strength/resistance exercise:no Barriers to regular exercise? no Work-related activity:Sedentary. 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 An overall goal of 150-200 minutes [...] which included preparing to see the patient, lwnf-yv-mxif patient care, completing clinical documentation, obtaining and/or reviewing separately obtained history, performing a medically appropriate examination, and counseling and educating the patient/family/caregiver. documented in this encounter [facility] 11-29-2024 Note HNO ID: [id number] Author: JACLYN IVORY APRN.CNP Service: ? Author [...] sweet tea Subway - 6 in wheat Lao parra veg sweet tea Red Lobster - shrimp scampi, 2 biscuits, occas Anshul salad, sweet tea Green [place] - chicken fingers, fries or smothered grilled [...] of sugar sweetened beverages, and skip meals. Soil Technician of impaired eating habits:emotion and stress causes [...] broasted chicken thigh breaded shrimp/g beans/noodles at [facility] S - none Fluids - water Current Barriers: large portion sizes, inadequate sleep duration, and reduced physical activity Exercise: none Regular exercise: no Strength/resistance exercise:no Barriers to regular exercise? no Work-related activity:Sedentary. 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 [...] Prilosec NEURO: Migraines (more content not included)... [facility] 11-29-2024 Instructions Jaclyn Ivory APRN.BULK SEALER OPERATOR - 11/29/2024 1:25 PM EDT - Whole food [...] oz is 28 gm protein Beef, Chicken, [place], Pork, Duran 1 oz 7g Fish, Tuna [...] protein & 2 carb Protein AND carbs Beef/[place] Jerky 1 oz dried 10-15g protein - check carb count, can be high if sugar added Slim Jerardo - 6 gm protein and 4 net carb Great Value original turkey sausage sticks - 7 gm protein and 2 gm carb Sharmila & Shyam (at [employer]) Original smoked sausage sticks - 8 gm protein and 0 carb Imitation Crab Meat 1 oz - 2g protein & 4g carb Milk, skim 2% or 1% 8 oz - 8g protein & 12g carb Fairlife 2% milk 8 oz -13 g protein & 6g carb Solomon Islander yogurt Full Fat Solomon Islander Yogurt 1 cup - 20.4g protein & 9.1g carb 2% Solomon Islander Yogurt 1 cup - 22.7g protein & 9.1g carb 0% (fat-free) Solomon Islander Yogurt - 1 cup 24g protein & 9.3g carb Aldi Protein Solomon Islander yogurt single svg - 13/g15g protein & 7g carb Chobani Zero Sugar single svg: - 12g protein & 5g carb Chobani drinkable 15g, 20g and 30g protein & 18 carb Dannon Solomon Islander Light + Fit 1 single svg - 12g protein & 9g carb Oikos Pro single svg - 20g protein & 8g carb Oikos Triple Zero Solomon Islander Nonfat Yogurt 1 single svg - 15g protein & 7g carb Oikos Pro drinkable yogurt 1 single svg - 23 g protein & 8 g carb :ratio, KETO Friendly Dairy Snack 1 single svg - 15g protein & 2g carb :ratio Protein 1 single svg - 25g protein & 8g carb Two Good Lowfat [place] Islander Yogurt, [place], Lower Sugar - 12g protein & 2g carb Yoplait Protein 1 single svg 15gm protein & 5gm carb Dairy Free - [place] unsweetened Solomon Islander almond/soy 15 gm protein & 3 gm [...] carb Parmesan 10g protein & 0.9g carb Gabonese 7.6g protein & 1.5g carb Cottage Cheese 1/2 c Breakstone 2% 13g protein 7g carb Kayleigh 2% 13g protein 5 g carb Good Culture 2% 14g protein 3g carb Ma s Low Fat 12g protein & 4g carb Legumes Lentils cup 9g protein & 20g carb Ann beans cup 7g protein & 20g carb Kidney, Black, [place], Cannellini beans cup 8g protein & 20g carb Soybeans 1/2 c 14g complete protein & 8.5g carb [place] milk, unsweetened 8 oz 1g protein & 2g carb Soy milk 8 oz 3.5g protein & 1.6g carb Tofu 1/2 cup 10g protein & 2.3g carb Peanut butter, natural 2 Tbsp 7-8g protein & 4g net carbs, 190 calories PB2 powder 2 Tbsp 6g protein & 5g carb Nuts and Seeds per oz Almonds - 5.9g protein & 6.1g carb [place] Nuts - 4.0g protein & 3.4g carb [...] Seeds - 6.9g protein & 5g carb [place] Seeds - 5.8g protein & 5.6g carb Walnuts - 4.3g protein & 3.8g carb Edamame Beans (soybean) snack 1 pack 11 gm complete protein 2 carb 5 (FIVE) gram carb vegetable options 1 cup raw OR cup cooked: Asparagus Nicholson sprouts Beets Broccoli Brussel sprouts Cabbage Carrots Cauliflower Celery [place] Eggplant Green beans Lettuce Peppers Snap peas [...] High Protein Snack Ideas 1. Jerky 2. [place] mix without dried fruit 3. [place] roll-ups 4. Solomon Islander yogurt 5. Veggies and yogurt dip 6. Tuna 7. Hard-boiled eggs 8. Peanut butter with celery 9. Cheese slices/ Cheese Stick 10. Handful of almonds, peanuts or walnuts 11. Cottage Cheese 12. Beef sticks 13. Protein bars 14. Canned [place] 15. Pumpkin seeds 16. Nut butter 17. Protein shakes 18. Avocado and chicken salad 19. Egg muffins 20. Leftover protein or lunch meat 21. 1/2 c blended cottage cheese or Solomon Islander yogurt with dry ranch/Mrs. Dash/herb seasoning mix [...] nuts and freeze documented in this encounter [facility] 10-31-2024 Instructions Jaclyn Ivory APRN.CNP - 10/31/2024 7:25 AM EDT Increase metformin [...] Friendly Dairy Snack 1 single svg - 18 eggs - meat - cheese 9 x13 bake 6 servings A Short Walk After Meals Is All It Takes to Lower Blood Sugar Researchers studying older adults with pre-diabetes found that 15 minutes of hcot-kv-qqexjtfs exercise after every meal curbed risky blood [...] the Clinical Exercise Physiology Laboratory at the [facility] ([facility]) using whole room calorimeters. 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 https://www.[employer]/Embedlyt h-news/ocbwm-edvnhtp-srdaf-meals -hm-rtvkyxy-ujeuj-ewtzw-evzfvv-5 83855 . documented in this encounter [facility] 10-31-2024 History of Presen t illness Narrative [...] shake at 0730 makes her hungry around [id number] Stopped coffee in am and sweet tea [...] sweet tea Subway - 6 in wheat Lao parra veg sweet tea Red Lobster - shrimp scampi, 2 biscuits, occas Anshul salad, sweet tea Green [place] - chicken fingers, fries or smothered grilled [...] of sugar sweetened beverages, and skip meals. 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 Not hungry, gets full easily, stays full for up to 6 hours. 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 no Work-related activity:Sedentary. 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 An overall goal of 150-200 minutes [...] 4 - Moderate documented in this encounter [facility] 10-31-2024 Note HNO ID: [id number] Author: JACLYN IVORY APRN.CNP Service: ? Author [...] shake at 0730 makes her hungry around [id number] Stopped coffee in am and sweet tea [...] - SKIP/ WE if did not eat [employer]'s RB sandwich with sauce or leftovers S - none D - 7-8 pm lasagne or tacos or sausage rice casserole or teriyaki chicken and rice or grilled meat/baked potato with tea with SF drink mixes. eats out 3-4 times a week Chipotle - Steak, white rice, black beans, s cream, cheese, corn tomatoes, chips, sweet tea Subway - 6 in wheat Lao parra veg sweet tea Red Lobster - shrimp scampi, 2 biscuits, occas Anshul salad, sweet tea Green [place] - chicken fingers, fries or smothered grilled [...] of sugar sweetened beverages, and skip meals. 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 Not hungry, gets full easily, stays full for up to 6 hours. 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 no Work-related activity:Sedentary. 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 Sleep: [...] Prilosec NEURO: Migraines/ESPINOZA (more content not included)... [facility] 10-02-2024 Note HNO ID: [id number] Author: JACLYN IVORY APRN.BULK SEALER OPERATOR Service: ? Author Type: Nurse Practitioner Type: [...] sweet tea Subway - 6 in wheat Lao parra veg sweet tea Red Lobster - shrimp scampi, 2 biscuits, occas Anshul salad, sweet tea Green [place] - chicken fingers, fries or smothered grilled [...] of sugar sweetened beverages, and skip meals. 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 Not hungry, gets full easily, stays full for up to 6 hours. Eating Disorder no Cravings: salty, crunchy Sleep Duration: 6-7 hours. 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 Cause:Work [...] was not effective and costly. Caloric restriction, Victim Advocate, Exercise/increased activity, Low Carbohydrate diet, MyFitnessPal, Slimfast, Starvation, Weight watchers, and Optavia Recently - difficult to lose any weight Exercise: Regular exercise: no Strength/resistance exercise:no Barriers to regula (more content not included)... [facility] 10-02-2024 History of Presen t [...] sweet tea Subway - 6 in wheat Lao parra veg sweet tea Red Lobster - shrimp scampi, 2 biscuits, occas Anshul salad, sweet tea Green [place] - chicken fingers, fries or smothered grilled [...] of sugar sweetened beverages, and skip meals. 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 Not hungry, gets full easily, stays full for up to 6 hours. Eating Disorder no Cravings: salty, crunchy Sleep Duration: 6-7 hours. 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 Cause:Work [...] was not effective and costly. Caloric restriction, Victim Advocate, Exercise/increased activity, Low Carbohydrate diet, MyFitnessPal, Slimfast, Starvation, Weight watchers, and Optavia Recently - difficult to lose any weight Exercise: Regular exercise: no Strength/resistance exercise:no Barriers to regular exercise? no Work-related activity:Sedentary. 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 - INSULIN, TOTAL, SERUM - HEMOGLOBIN A1C - COMPLETE BLOOD COUNT - LIPID PANEL BASIC - COMPREHENSIVE METABOLIC PANEL Soil Technician of impaired eating habits:emotion and stress causes [...] training and cardiovascular exercise is the best lobsterman plan. An overall goal of 150-200 minutes [...] which included preparing to see the patient, qytl-vu-lpri patient care, completing clinical documentation, obtaining and/or reviewing separately obtained history, performing a medically appropriate examination, counseling and educating the patient/family/caregiver, and ordering medications, tests, or procedures. documented in this encounter [facility] 10-02-2024 Instructions Jaclyn Ivory APRN.CNP - 10/02/2024 [...] slots. This should not be done on [facility] as you will not be scheduled appropriately and will need to be rescheduled.[phone] We appreciate that you have entrusted us with your health and know that we are committed to this process with you. Sincerely, Mariah Vasquez MD, ZIYAD, HEMAL & Jaclyn Ivory CNP Advanced Education from the Obesity Medicine Association Obesity Obesity is a disease that affects nearly one-third of the adult [place] population (approximately 60 million). The number of overweight and obese Americans has continued to increase since 1960, a trend that is not slowing down. Today, 64.5 percent of adult Americans (about 127 million) are categorized as being overweight or obese. Each year, obesity causes at least 300,000 excess deaths in the [place] and healthcare costs of [place] adults with obesity amount to approximately $100 [...] the gallbladder, breast, uterus, cervix, or ovaries https://my.uc [facility].org/[facility]/diseases/88698-hfefax-oikk epnywk-gksxxpc-zqiztriho - Eat primarily whole foods. Limit carbs, [...] with pre-diabetes found that 15 minutes of bott-rn-sddwtuwd exercise after every meal curbed risky blood [...] the Clinical Exercise Physiology Laboratory at the [facility] ([facility]) using whole room calorimeters. 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 https://www.Shareight/[employer] h-news/nulid-rpriqla-cxvvx-meals -gg-ibpgpuz-vkhtf-mlvcv-kvxcoj-0 36121 METFORMIN Dosing -- Begin Metformin 500 ER [...] (nih.gov) Is metformin a wonder drug? - [facility] Common side effects of this medication include [...] MD, clinical director of adult diabetes at [facility], explains why timing metformin HCL with the [...] night in treating fasting high blood sugar. https://www.[employer]/artic le/547639-fzqs-ah-g-ptww-ycdfzxy ny-wda-cl-kcqw-exqydtm-xz-night/ Metformin: Patient drug information Warning Rarely, metformin [...] understood. Topiramate affects body mass index, fasting mwayxoy-dy-groqrna ratio, and serum leptin and cortisol levels. [...] at or call local emergency services at 211. What other information should I know? Keep all appointments with your doctor and the laboratory. Do not let anyone else take your medication. Topiramate use needs to be monitored closely. Prescriptions may be refilled only a limited number of times. Keep a written list of all of your prescription and nonprescription (nfhv-lyt-peqsrak) medicines, in addition to vitamins, minerals, or [...] a missed one. Sources Pubmed Health: http://www.ncbi.nlm.nih.gov/pubm edhealth/OZX4553526/ Drugs.com http://www.drugs.com/pro/topiram ate.html documented in this encounter [facility] 06-13-2024 Note HNO ID: [id number] Author: MICHAEL MILLIGAN MD Service: ? Author [...] L1 SAB0 IAB0 Ectopic0 Multiple0 Live Births1 Senior Program Analyst History LMP: 05/29/2024 (Exact Date), Having periods Age at Menarche: Age at First : Age at Menopause: Senior Program Analyst History Comments: Sexual Activity: Yes; Male Contraception: [...] discussed with the Patient or Patient's Authorized Cloth Edge Singer. As applicable, any other physician, advance practice provider, medical student, or other health professional student that will be observing or involved in the sensitive examination for educational or training purposes was discussed with the Patient or Authorized Cloth Edge Singer. The Patient or Authorized Cloth Edge Singer has agreed to proceed with the sensitive [...] external genitalia normal, normal Bartholin's glands, urethra, Windber's glands, no vulvar lesions, no cervical lesions, [...] or sooner as needed Michael Milligan MD [facility] 06-13-2024 History of Presen t [...] L1 SAB0 IAB0 Ectopic0 Multiple0 Live Births1 Senior Program Analyst History LMP: 05/29/2024 (Exact Date), Having periods Age at Menarche: Age at First : Age at Menopause: Senior Program Analyst History Comments: Sexual Activity: Yes; Male Contraception: [...] discussed with the Patient or Patient's Authorized Cloth Edge Singer. As applicable, any other physician, advance practice provider, medical student, or other health professional student that will be observing or involved in the sensitive examination for educational or training purposes was discussed with the Patient or Authorized Cloth Edge Singer. The Patient or Authorized Cloth Edge Singer has agreed to proceed with the sensitive [...] external genitalia normal, normal Bartholin's glands, urethra, Windber's glands, no vulvar lesions, no cervical lesions, [...] or sooner as needed Michael Milligan MD documented in this encounter [facility] 11-29-2023 Miscellaneous Notes please sign orders for [facility] to input Kena Burrows RN November 29, 2023 3:41 PM documented in this encounter [facility] 05-28-2023 History of Presen t illness Narrative I have communicated my name and active licensure. The patient's identity and physical location were verified at the time of this visit. Either the patient or their legal screening representative has been informed of the risks [...] palpitations GI: See HPI : Not reviewed GREENHOUSE TECHNICIAN: Not reviewed PHYSICAL FINDINGS OF NOTE: Patient [...] activities tomorrow. Procedure Code(s): --- Professional --- 31396, Esophagogastroduodenoscopy, flexible, transoral; with insertion of guide [...] which included preparing to see the patient, nscs-tj-mjoa patient care, completing clinical documentation, obtaining and/or reviewing separately obtained history, performing a medically appropriate examination, counseling and educating the patient/family/caregiver, ordering medications, tests, or procedures, communicating with other HCPs (not separately reported), and independently interpreting results (not separately reported). Lydia Gaona PA-C May 28, 2023 11:12 AM documented in this encounter [facility] 02-24-2023 History of Presen t illness Narrative Images from the original note were not included. [facility] [place] Gastroparesis/Dysmotility Virtual Follow Up This encounter was provided via two-way, live video teleconferencing within the guidelines of state licensure rules for new and established patients. I have communicated my name and active licensure. The patient's identity and physical location were verified at the time of this visit. Either the patient or their legal screening representative has been informed of the risks [...] SERVICE TIME: 2:31 PM PRIMARY CARE PHYSICIAN: Yandel Stacy PA-C Assessment ASSESSMENT 38 year old [...] interventions. Dysphagia has nearly resolved with 57 Peruvian savory dilation. There is no clinical suspicion [...] in detail. Based on this discussion, Forest Nguyen wishes to proceed with continued medical and [...] and rediscussions, sooner if needed. NAME: Forest Nguyen CLINIC NO: [id number] CHIEF COMPLAINT Idiopathic Gastroparesis HISTORY OF PRESENT [...] everything looked fine. Has been following with shellfish manager for liver shrinking diet. 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 No history of symptoms or problems. GREENHOUSE TECHNICIAN: Negative for abnormal vaginal bleeding, abnormal vaginal [...] plan of care. documented in this encounter [facility] 02-11-2023 Instructions Suzi Watkins DO - 02/11/2023 [...] Suzi Watkins DO documented in this encounter [facility] 02-11-2023 History of Presen t illness Narrative Summary: [facility]ERTA REPORT Images from the original note were not included. documented in this encounter [facility] 02-09-2023 History and physical note UPDATED HISTORY [...] EGD DIAGNOSTIC Medication reconciliation list reviewed in [facility]. Past medical history, past surgical history, social history and family history reviewed and updated in [facility]. ALLERGIES No Known Allergies [facility] for [facility] BP 124/88 Pulse 86 Temp [...] Record dated: 01/11/23 done by Elizabeth Dias APRN.BULK SEALER OPERATOR SIGNATURE: Trinidad Christie PA-C PATIENT NAME: Forest Nguyen DATE: February 09, 2023 TIME: 12:31 PM documented in this encounter [facility] 02-04-2023 Nurse Note [facility] ENDOSCOPY PRE PROCEDURE CALL Maury. I'm calling from [facility] endoscopy to provide you with the information for your surgery/procedure tomorrow. Spoke to: voicemail and my chart documented in this encounter [facility] 01-18-2023 Miscellaneous Notes called patient to discuss [...] patient. Thank you! documented in this encounter [facility] 2023 Discharge summary Note Date/Time 2023 6:32p m [facility] Medical Records Department [address] [place] [address] Emergency Department Summary 01/17/23 MR#: [id number] Acct: [id number] Name: FOREST NGUYEN Rep #:[id number] : [...] in medications. No history of intra-abdominal surgeries. [facility] Medical History Alcohol use Difficulty swallowing [...] (Auto) 72.9 H Lymph % (Auto) 20.2 [place] % (Auto) 4.8 Eos % (Auto) 1.3 [...] Color Urine Clarity Urine pH Ur Specific [place] Urine Protein Urine Glucose (UA) Urine Ketones Urine Occult Blood Urine Nitrite Urine Bilirubin Urine Urobilinogen Ur Leukocyte Esterase Urine RBC Urine WBC Ur Squamous Epith Cells Urine Bacteria Urine Mucus 01/17/23 18:40 WBC RBC Hgb Hct MCV MCH MCHC RDW Std Deviation RDW Coeff of Too Plt Count MPV Immature Gran % (Auto) Neut % (Auto) Lymph % (Auto) [place] % (Auto) Eos % (Auto) Baso % (Auto) Absolute Neuts (auto) Absolute Lymphs (auto) Nucleated RBC % Sodium Potassium Chloride Carbon Dioxide Anion Gap BUN Creatinine Estim Creat Clear Calc Est GFR (MDRD) Af Amer Est GFR (MDRD) Non-Af BUN/Creatinine Ratio Glucose Calcium Serum , Qual Urine Color Yellow Urine Clarity Cloudy Urine pH 6.[address] [place] 1.025 Urine Protein 100 H Urine Glucose [...] 19:36 EDT Reading Location ID and State: [facility] / [place] , Service support , Discharge Plan Triage [...] your Primary Care Provider. Call [facility] ([phone]) or report to the closest Emergency Room. Call 911 if necessary. 01/17/232002 <Electronically signed by Tucker Bob MD> Cosigner Signature (if applicable): CC: Dr. Vijay Godinez MD ~ Signed [facility] Work Phone: 1(834) 719-650205-31-2023 History of Present illness Narrative* Adrianna Fountain DO - 01/12/2023 8:18 AM EDT Images from the original note were not included. [facility] History and physical note * Elizabeth Dias APRN.[facility] - 01/11/2023 1:40 PM EDT Surgeon: Suzi Watkins DO Type of surgery: EGD under MAC Patient scheduled for surgery on 01/19/2023 . Surgery Location: [facility] Diagnosis: Preop examination (primary encounter diagnosis) THIS IS A VIRTUAL VISIT This is a virtual visit using Minus video visit. It required patient-provider interaction for themedical decision making as documented below. I have communicated my name and active licensure. The patient's identity and physical location wereverified at the time of this visit. Either the patient or their legal screening representative has been informed of the risks and benefits of and alternatives to treatment through a remote evaluation and consents to proceed with the evaluation remotely. Ht 4' 11[Pt. reported[ (1.50m) Wt 180 lb (81.6kg) LMP 01/10/2023 BMI 36.34 kg/(m^2). Full H&P completed 01/06/2023 by Suzi Watkins DO ( Epic>Office Visit) for idiopathic gastroparesis. [...] 11, 2023 1:50 PM [facility] Instructions* Patient Instructions* Elizabeth Dias APRN.CNP - 01/11/2023 12:57 PM EDT PATIENT PREOPERATIVE INSTRUCTIONS Suzi Watkins DO has scheduled you for your procedure at this surgery center: [facility]: [phone] -- [facility], [facility] [address]. Please read below carefully for your personalized [...] Procedures: - YOU MUST HAVE A RESPONSIBLE ENROLLMENT MANAGEMENT MANAGER TAKE YOU HOME. A MANAGER TRAVEL OR REGISTERED CLINICAL DIETITIAN CANNOT BE MADE A RESPONSIBLE ENROLLMENT MANAGEMENT MANAGER. - We recommend that a responsible person [...] Advance Directive, please fax a copy to [phone] or email to for it to be [...] your chart that day. [facility] History of Present illness Narrative* Triny Higuera, KARISSA - 11/29/2022 2:30 PM EDT [facility] Nutrition Therapy: Virtual Consult - Initial Assessment I have communicated my name and active licensure. The patient s identity and physical location wereverified at the time of this visit. Either the patient or their legal screening representative has been informed of the risks [...] toast w/ egg - Smoothie - Lunch: Solomon Islander yogurt, cottage cheese (low fat), egg salad [...] weights and a weight bench. 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 [...] 11/29/2022 TIME: 1:40 PM documented in [facility] History of Present illness Narrative* Pat Bustamante APRN.BULK SEALER OPERATOR - 11/23/2022 8:25 AM EDT Patient fasting [...] chance of stage 4 fibrosis (cirrhosis). Pat Bustamante APRN.BULK SEALER OPERATOR NAFLD Fibroscan Fibrosis Risk <7 kPA = [...] (>/= S3: > 66% steatosis) Reference Shiv Beltran, Eber Q, Chaney T, Meri J, Chaney H, Bowen T. Controlled attenuation parameter for assessment of hepatic steatosis grades: a diagnostic meta-analysis. Int J Clin Exp Med. 2015 May 29;8(10):29697-12.PMID: 93503533; PMCID: [id number]. Zeb Humphries, Quirino KADIE, Tevin M, Audi F, Abner J, Frankie O, Umm F, Geo M, Colleen G, Mariam A, Rebecca E, Pilar L, Stephanie G, Alba A, Pepe U, Omari S, Bethany, Myesha V, de Rajesh V, Jagruti M, Cortes JULES. Refining the Baveno elastography criteria for the definition of compensated advanced chronic liver disease. J Hepatol. 2020;74(5):3146-0447. doi: 10.1016/j.jhep.2020.11.050. Epub 2019Jul 23. PMID: 91810896. documented in [facility] encounter[facility]04[facility]23 Instructions* Patient Instructions* Lydia Gaona PA-C - [...] detox cleanse/supplements Call with any questions at [phone] documented in this encounterH[facility]23 History of Present illness Narrative* Lydia Gaona PA-C - 11/23/2022 8:13 AM EDT NAME: Forest Humphries [facility] NO: [id number] REFERRING PHYSICIAN: Lydia Gaona PRESENTING COMPLAINT: Patient [...] to establish with GI. 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 Lydia Gaona PA-C November 23, 2022 9:35 AM documented in this encounterH[facility]23 Miscellaneous Notes* Telephone Encounter - Edna Michaels [...] // HANNA // CHERYL // GASTROPARESIS Forest Nguyen is being referred to or the Gastroparesis clinic. Referring Physician: Dr. Joyner Has the patient had a Gastric Emptying Study? Yes Which facility or hospital was the Gastric Emptying Study done at (please list full name of hospital or facility)? [facility] If the patient had a gastric [...] G/J Tube?No Preferred phone number for contact: [phone] Send to GASTROPARESIS SCHEDULING POOL [[phone]] * Telephone Encounter - Aleah Joseph [facility] - 10/15/2022 1:05 PM EST Pre- Appointment Assessment GI DX: Gastroparesis, GERD, gastritis Referring Physician: Allyssa DELONG / Michael Tatum MD Records are in: Care everywhere [...] GJ Tube x *Notes: documented in this encounterH[facility]03-[facility]-2023 History of Present illness Narrative* Lydia Gaona [...] visit. Either the patient or their legal screening representative has been informed of the risks [...] autoimmune disorders No Metabolic Syndrome Risk factors: 09/19 1) Diabetes/ Abnormal FBS >100mg/dL:no 2) Hypertension [...] to establish with GI. RECOMMENDATION: Fibroscan for staging-[facility] Repeat LFTs and fill in gaps in [...] with me same day as fibroscan at [facility] I spent a total of 40 minutes on the date of the service which included preparing to see the patient, dmhl-xj-ayai patient care, completing clinical documentation, obtaining and/or [...] IGG Lydia Gaona PA-C documented in this encounterH[facility]03-02-2023 History of Present illness Narrative* Matilde Wright RT(R) - 10/14/2022 7:30 AM EST RADIOLOGY [...] 08:00 PATIENT DISCHARGED TO: Ambulatory patient, left [place] department area. A Diagnostic radioactive procedure has taken place, with no further precautions necessary other than routine body substance precautions. More information regarding radiation safety can be found usingthis link: [email or web address]/files/Rad%20Protection%20-% 20Diagnostic%20Nuclear%20Medicine%20Procedures.pdf SIGNATURE: SAYRA Ibanez) PATIENT NAME: Forest Nguyen DATE: October 14, 2022 TIME: 12:15 PM PAGER/CONTACT #: documented in this encounterHarrison [facility] Hospital01-03-2023 Miscellaneous Notes* Telephone Encounter - Ashish Luna LPN - 08/17/2022 1:48 PM EST Patient phones requesting refills as follows: Requested Prescriptions Pending Prescriptions Disp Refills amLODIPine (NORVASC) 10 mg tablet 90 tablet 1 Sig: Take 1 tablet by mouth once daily. ULYSSES 09/24/21 NOV no upcoming appt Please review and advise. Ashish Luna LPN documented in this encounterHarrison [facility] Hospital08-08-2022 Miscellaneous Notes* Telephone Encounter - Ashish Luna [...] advise. Ashish Luna LPN documented in this encounterH[facility]05-13-2022 Miscellaneous Notes* Telephone Encounter - Yandel Stacy PA-C - 12/25/2021 5:15 AM EDT The following approved medication requests have been transmitted electronically. Signed Prescriptions Disp Refills omeprazole (PRILOSEC) 40 mg capsule 180 capsule 1 Sig: Take 1 capsule by mouth twice daily before meals. See myc message Yandel Stacy PA-C documented in this encounterHarrison [facility] Hospital03-03-2022 NoteHNO ID: [id number] Author: SAYRA De La Torre) Service: Radiology Author Type: Technologist Type: Progress [...] BY: RT Britt(R) October 15, 2021 8:55 AMK[facility] So[facility] [id number] History of Past illness Narrative * Problem Noted Date Resolved Date Positive GBS test 03/02/2019 04/04/2019 resulting from ass isted reproductive technology, antepartum 08/31/2018 04/04/2019 Overview: 08/31/2018Patient and have been trying to conceive for the past 6 years.Patient had seen ANABELLA and this is IVF . She is 10w3d and has nuchal scheduled at [place] location. She wants to change location of [...] of this encounter (statuses as of 12/25/2021) [facility] History of Past illness Narrative* Problem Noted Date Resolved Date Positive GBS test 03/02/2019 04/04/2019 resulting from ass isted reproductive technology, antepartum 08/31/2018 04/04/2019 Overview: 08/31/2018Patient and have been trying to conceive for the past 6 years.Patient had seen ANABELLA and this is IVF . She is 10w3d and has nuchal scheduled at [place] location. She wants to change location of nuchal to [place]. TKRN Pre-existing essential hyper tension complicating , [...] of this encounter (statuses as of 03/26/2022) [facility] History of Past illness Narrative* Problem Noted Date Resolved Date Positive GBS test 03/02/2019 04/04/2019 resulting from ass isted reproductive technology, antepartum 08/31/2018 04/04/2019 Overview: 08/31/2018Patient and have been trying to conceive for the past 6 years.Patient had seen ANABELLA and this is IVF . She is 10w3d and has nuchal scheduled at [facility]. She wants to change location of nuchal [...] of this encounter (statuses as of 08/19/2022) [facility] History of Past illness Narrative* Problem Noted Date Resolved Date Positive GBS test 03/02/2019 04/04/2019 resulting from ass isted reproductive technology, antepartum 08/31/2018 04/04/2019 Overview: 08/31/2018Patient and have been trying to conceive for the past 6 years.Patient had seen ANABELLA and this is IVF . She is 10w3d and has nuchal scheduled at [place] location. She wants to change location of [...] of this encounter (statuses as of 10/23/2022) [facility] History of Past illness Narrative* Problem Noted Date Resolved Date Positive GBS test 03/02/2019 04/04/2019 resulting from ass isted reproductive technology, antepartum 08/31/2018 04/04/2019 Overview: 08/31/2018Patient and have been trying to conceive for the past 6 years.Patient had seen ANABELLA and this is IVF . She is 10w3d and has nuchal scheduled at [place] location. She wants to change location of [...] of this encounter (statuses as of 11/23/2022) [facility] History of Past illness Narrative* Problem Noted Date Resolved Date Positive GBS test 03/02/2019 04/04/2019 resulting from ass isted reproductive technology, antepartum 08/31/2018 04/04/2019 Overview: 08/31/2018Patient and have been trying to conceive for the past 6 years.Patient had seen ANABELLA and this is IVF . She is 10w3d and has nuchal scheduled at [place] location. She wants to change location of nuchal to [place]. TKRN Pre-existing essential hyper tension complicating , [...] of this encounter (statuses as of 11/23/2022) [facility] of [facility] illness Narrative* Problem Noted Date Resolved Date Positive GBS test 03/02/2019 04/04/2019 resulting from ass isted reproductive technology, antepartum 08/31/2018 04/04/2019 Overview: 08/31/2018Patient and have been trying to conceive for the past 6 years.Patient had seen ANABELLA and this is IVF . She is 10w3d and has nuchal scheduled at [place] location. She wants to change location of [...] of this encounter (statuses as of 11/26/2022) [facility] History of Past illness Narrative* Problem Noted Date Resolved Date Positive GBS test 03/02/2019 04/04/2019 resulting from ass isted reproductive technology, antepartum 08/31/2018 04/04/2019 Overview: 08/31/2018Patient and have been trying to conceive for the past 6 years.Patient had seen ANABELLA and this is IVF . She is 10w3d and has nuchal scheduled at [place] location. She wants to change location of nuchal to [place]. TKRN Pre-existing essential hyper tension complicating , [...] of this encounter (statuses as of 12/01/2022) [facility]2019 History of Past illness Narrative* Problem Noted Date Resolved Date Positive GBS test 03/02/2019 04/04/2019 resulting from ass isted reproductive technology, antepartum 08/31/2018 04/04/2019 Overview: 08/31/2018Patient and have been trying to conceive for the past 6 years.Patient had seen ANABELLA and this is IVF . She is 10w3d and has nuchal scheduled at [place] location. She wants to change location of nuchal to [place]. TKRN Pre-existing essential hyper tension complicating , [...] of this encounter (statuses as of 12/07/2022) [facility] History of Past illness Narrative* Problem Noted Date Resolved Date Positive GBS test 03/02/2019 04/04/2019 resulting from ass isted reproductive technology, antepartum 08/31/2018 04/04/2019 Overview: 08/31/2018Patient and have been trying to conceive for the past 6 years.Patient had seen ANABELLA and this is IVF . She is 10w3d and has nuchal scheduled at [place] location. She wants to change location of [...] of this encounter (statuses as of 01/12/2023) [facility] History of Past illness Narrative* Problem Noted Date Resolved Date Positive GBS test 03/02/2019 04/04/2019 resulting from ass isted reproductive technology, antepartum 08/31/2018 04/04/2019 Overview: 08/31/2018Patient and have been trying to conceive for the past 6 years.Patient had seen ANABELLA and this is IVF . She is 10w3d and has nuchal scheduled at [place] location. She wants to change location of [...] Reid but has been prescribed by Dr Lago. MILLS. Family history of congenital heart defect 201804/04/2019 Overview: 08/31/2018Maternal aunt born with hole in heart. Surgical correction done. TKRN Encounter for in vitro fertilization 02/04/2017 04/04/2019 documented as of this encounter (statuses as of 01/12/2023) [facility] History of Past illness Narrative* Problem Noted Date Resolved Date Positive GBS test 03/02/2019 04/04/2019 resulting from ass isted reproductive technology, antepartum 08/31/2018 04/04/2019 Overview: 08/31/2018Patient and have been trying to conceive for the past 6 years.Patient had seen ANABELLA and this is IVF . She is 10w3d and has nuchal scheduled at [facility]. She wants to change location of nuchal to [place]. TKRN Pre-existing essential hyper tension complicating , [...] of this encounter (statuses as of 01/18/2023) [facility] History of Past illness Narrative* Problem Noted Date Resolved Date Positive GBS test 03/02/2019 04/04/2019 resulting from ass isted reproductive technology, antepartum 08/31/2018 04/04/2019 Overview: 08/31/2018Patient and have been trying to conceive for the past 6 years.Patient had seen ANABELLA and this is IVF . She is 10w3d and has nuchal scheduled at [place] location. She wants to change location of nuchal to [place]. TKRN Pre-existing essential hyper tension complicating , [...] of this encounter (statuses as of 02/04/2023) [facility] History of Past illness Narrative* Problem Noted Date Resolved Date Positive GBS test 03/02/2019 04/04/2019 resulting from ass isted reproductive technology, antepartum 08/31/2018 04/04/2019 Overview: 08/31/2018Patient and have been trying to conceive for the past 6 years.Patient had seen ANABELLA and this is IVF . She is 10w3d and has nuchal scheduled at [place] location. She wants to change location of nuchal to [place]. TKRN Pre-existing essential hyper tension complicating , unspecified trimester 08/31/2018 04/04/2019 Overview: 02/09/19 Weekly NST's, had growth US at 33 wks for S<D and to have repeat in 4 wks, delivery at 39 wks. 08/31/2018Patient has a history of hypertension diagnosed 01/2017. On Labetalol, most recently prescribed by Dr Reid but has been prescribed by Dr Lago. MILLS. Family history of congenital heart defect 201804/04/2019 Overview: 08/31/2018Maternal aunt born with hole in heart. Surgical correction done. TKRN Encounter for in vitro fertilization 02/04/2017 04/04/2019 documented as of this encounter (statuses as of 02/10/2023) [facility] History of Past illness Narrative* Problem Noted Date Resolved Date Positive GBS test 03/02/2019 04/04/2019 resulting from ass isted reproductive technology, antepartum 08/31/2018 04/04/2019 Overview: 08/31/2018Patient and have been trying to conceive for the past 6 years.Patient had seen ANABELLA and this is IVF . She is 10w3d and has nuchal scheduled at [facility]. She wants to change location of nuchal to [place]. TKRN Pre-existing essential hyper tension complicating , [...] of this encounter (statuses as of 02/12/2023) [facility] History of Past illness Narrative* Problem Noted Date Diagnosed Date Resolved Date Positive GBS test 03/02/2019 04/04/2019 resulting from ass isted reproductive technology, antepartum 08/31/201803/16 Overview: 08/31/2018Patient and have been trying to conceive for the past 6 years.Patient had seen ANABELLA and this is IVF . She is 10w3d and has nuchal scheduled at [place] location. She wants to change location of nuchal to [place]. TKRN Pre-existing essential hyper tension complicating , [...] of this encounter (statuses as of 02/25/2023) [facility] History of Past illness Narrative* Problem Noted Date Diagnosed Date Resolved Date Positive GBS test 03/02/2019 04/04/2019 resulting from ass isted reproductive technology, antepartum 08/31/201803/16 Overview: 08/31/2018Patient and have been trying to conceive for the past 6 years.Patient had seen ANABELLA and this is IVF . She is 10w3d and has nuchal scheduled at [place] location. She wants to change location of nuchal to [place]. TKRN Pre-existing essential hyper tension complicating , unspecified trimester 08/31/2018 04/04/2019 Overview: 02/09/19 Weekly NST's, had growth US at 33 wks for S<D and to have repeat in 4 wks, delivery at 39 wks. 08/31/2018Patient has a history of hypertension diagnosed 01/2017. On Labetalol, most recently prescribed by Dr Reid but has been prescribed by Dr Lago. MILLS. Family history of congenital heart defect 08/31/2018 04/04/2019 Overview: 08/31/2018Maternal aunt born with hole in heart. Surgical correction done. TKRN Encounter for in vitro fertilization 02/04/2017 04/04/2019 documented as of this encounter (statuses as of 05/28/2023) [facility] History of Past illness Narrative* Problem Noted Date Diagnosed Date Resolved Date Positive GBS test 03/02/2019 04/04/2019 resulting from ass isted reproductive technology, antepartum 08/31/201803/16 Overview: 08/31/2018Patient and have been trying to conceive for the past 6 years.Patient had seen ANABELLA and this is IVF . She is 10w3d and has nuchal scheduled at [place] location. She wants to change location of nuchal to [place]. TKRN Pre-existing essential hyper tension complicating , [...] of this encounter (statuses as of 06/19/2023) [facility] History of Past illness Narrative* Problem Noted Date Diagnosed Date Resolved Date Positive GBS test 03/02/2019 04/04/2019 resulting from ass isted reproductive technology, antepartum 08/31/201803/16 Overview: 08/31/2018Patient and have been trying to conceive for the past 6 years.Patient had seen ANABELLA and this is IVF . She is 10w3d and has nuchal scheduled at [place] location. She wants to change location of nuchal to [place]. TKRN Pre-existing essential hyper tension complicating , [...] of this encounter (statuses as of 11/30/2023) [facility] Hypertension, essential Unspecified essential hypertension [facility] Diagnosis Onset Date Resolution Status GERD (gastroesophageal reflux disease) acute [facility] Work Phone: Evaluation note* Diagnosis Onset Date Resolution Status GERD (gastroesophageal reflux disease) acute Fatigue acute Gastritis, bile acid reflux acute GAVE (gastric antral vascular ectasia) [facility] Work Phone: Evaluation note* Diagnosis Nonalcoholic fatty liver disease- Primary Other chronic nonalcoholic liver disease Elevated liver enzymes Other nonspecific abnormal serum enzyme levels [facility] Diagnosis Nonalcoholic fatty liver disease- Primary Other chronic nonalcoholic liver disease Elevated liver enzymes Other nonspecific abnormal serum enzyme levels Gastroparesis [facility] Diagnosis Nonalcoholic fatty liver disease- Primary Other chronic nonalcoholic liver disease Elevated liver enzymes Other nonspecific abnormal serum enzyme levels [facility] Diagnosis Nonalcoholic fatty liver disease- Primary Other chronic nonalcoholic liver disease Elevated liver enzymes Other nonspecific abnormal serum enzyme levels Gastroparesis BMI 37.0-37.9, adult Body Mass Index 37.0-37.9, adult Dietary counseling and surveillance Dietary surveillance and counseling documented in this encounter [facility] note* Diagnosis Gastroparesis- Primary documented in this encounter [facility] note* Diagnosis Preop examination- Primary Preoperative examination, unspecified documented in this encounter [facility] note* Diagnosis Gastroparesis- Primary documented in this encounter [facility] noteNo assessment information availableWSalem City [facility] Work Phone: Evaluation note* Diagnosis Gastroesophageal reflux disease without esophagitis Esophageal reflux Delayed gastric emptying Dyspepsia and other specified disorders of function of stomach NAFLD (nonalcoholic fatty liver disease) Other chronic nonalcoholic liver disease Esophageal dysphagia Dysphagia, pharyngoesophageal phase documented in this encounter [facility] note* Diagnosis Gastroesophageal reflux disease without esophagitis- Primary Esophageal reflux documented in this encounter [facility] note* Diagnosis Hiatal hernia with GERD without esophagitis- Primary Esophageal dysphagia Dysphagia, pharyngoesophageal phase Class 1 obesity due to excess calories without serious comorbidity with body mass index (BMI) of 34.0 to 34.9 in adult Gastroparesis documented in this encounter [facility] note* Diagnosis Nonalcoholic fatty liver disease- Primary Other chronic nonalcoholic liver disease Elevated liver enzymes Other nonspecific abnormal serum enzyme levels documented in this encounter [facility] note* Diagnosis Hiatal hernia with GERD without esophagitis- Primary Esophageal dysphagia Dysphagia, pharyngoesophageal phase documented in this encounter [facility] note* Diagnosis Encounter for gynecological examination (general) (routine) without abnormal findings- Primary Screening for cervical cancer Screening for malignant neoplasm of the cervix Encounter for screening for human papillomavirus (HPV) Special screening examination for human papillomavirus (HPV) documented in this encounter [facility] note* Diagnosis Hypertension, essential- Primary Unspecified essential [...] unspecified obesity type documented in this encounter [facility] note* Diagnosis Hypertension, essential- Primary Unspecified essential hypertension GERD without esophagitis Esophageal reflux Hyperinsulinemia Other specified hypoglycemia Metabolic syndrome Dysmetabolic Syndrome X Nonalcoholic fatty liver disease Other chronic nonalcoholic liver disease Class 1 obesity with serious comorbidity and body mass index (BMI) of 34.0 to 34.9 in adult, unspecified obesity type documented in this encounter [facility] note* Diagnosis Hypertension, essential- Primary Unspecified essential hypertension GERD without esophagitis Esophageal reflux Hyperinsulinemia Other specified hypoglycemia Metabolic syndrome Dysmetabolic Syndrome X Nonalcoholic fatty liver disease Other chronic nonalcoholic liver disease Class 1 obesity with serious comorbidity and body mass index (BMI) of 34.0 to 34.9 in adult, unspecified obesity type documented in this encounter [facility] note* Diagnosis Hyperinsulinemia- Primary Other specified hypoglycemia Metabolic syndrome Dysmetabolic Syndrome X documented in this encounter [facility] note* Diagnosis Hypertension, essential- Primary Unspecified essential hypertension GERD without esophagitis Esophageal reflux Hyperinsulinemia Other specified hypoglycemia Metabolic syndrome Dysmetabolic Syndrome X Nonalcoholic fatty liver disease Other chronic nonalcoholic liver disease Class 1 obesity with serious comorbidity and body mass index (BMI) of 34.0 to 34.9 in adult, unspecified obesity type documented in this encounter [facility] for referral (narrative)* Outpatient Procedure (Routine) - Pending Review Specialty Diagnoses / Procedures Referred By Julee meyers Referred To Contact [facility] [place] Diagnoses Nonalcoholic fatty liver disease Elevated liver enzymes Procedures DDI VIBRATION CONTROLLED TRANSIENT ELASTOGRAPHY (VCTE) LIVER ELASTOGRAPHY W/O IMAG W/I&R Lydia Gaona PA-C [address] [place] [address] [address] Referral ID Status Reason Start Date Expiration Date Visits Requested Visits Authorized [id number] Pending Review Auto-Generat ed Referral 10/23/2022 10/24/2023 1 1 [facility] for referral (narrative)* Outpatient Procedure (Routine) - Closed Specialty Diagnoses / Procedures Referred By Julee meyers Referred To Contact [facility] [place] Diagnoses Gastroesophageal reflux disease without esophagitis Delayed gastric emptying NAFLD (nonalcoholic fatty liver disease) Esophageal dysphagia Procedures PH HUERTA INSERT OFF MEDS GASTROESOPHAG REFLX TEST W/TELEMTRY [place] [address] [place] [phone] Referral ID Status Reason Start Date Expiration Date V isits Requested Visits Authorized [id number] Closed Auto-Generate d Referral 01/06/2023 01/06/2024 1 1 * Outpatient Procedure (Routine) - Closed Specialty Diagnoses / Procedures Referred By Contac t Referred To Contact [facility] [place] Diagnoses Gastroesophageal reflux disease without esophagitis Delayed gastric emptying NAFLD (nonalcoholic fatty liver disease) Esophageal dysphagia Procedures EGD - THERAPEUTIC, EUS, OR TUBE INTERVENTIONS ESOPHAGOGASTRODUODENOSC OPY TRANSORAL DIAGNOSTIC [place] [address] [address] [place] [phone] Referral ID Status Reason Start Date Expiration Date V isits Requested Visits Authorized [id number] Closed Auto-Generate d Referral 01/06/2023 01/07/2024 1 1 [facility] for referral (narrative)* Outpatient Procedure (Routine) - Pending Review Specialty Diagnoses / Procedures Referred By Contac t Referred To Contact [facility] Diagnoses Nonalcoholic fatty liver disease Elevated liver enzymes Procedures DDI VIBRATION CONTROLLED TRANSIENT ELASTOGRAPHY (VCTE) LIVER ELASTOGRAPHY W/O IMAG W/I&R Lydia Gaona PA-C [address] [place] [address] [place] [phone] Referral ID Status Reason Start Date Expiration Date Visits Requested Visits Authorized [id number] Pending Review Auto-Generat ed Referral 05/28/2024 1 1 [facility] for referral (narrative)* Outpatient Procedure (Routine) - Pending Review Specialty Diagnoses / Procedures Referred By Prosperac t Referred To Contact [facility] [place] Diagnoses Esophageal dysphagia Procedures PH HUERTA INSERT OFF MEDS GASTROESOPHAG REFLX TEST W/TELEMTRY [place] [address] [address] [place] [phone] Referral ID Status Reason Start Date Expiration Date Visits Requested Visits Authorized [id number] Pending Review Auto-Generat ed Referral 11/29/2023 11/28/2024 1 1 [facility] for referral (narrative)No reason for referral information availableWSalem City Hospital Work Phone[facility] N[facility]* Outpatient Procedure (Routine) - Closed Specialty Diagnoses / Procedures Referred By Contac t Referred To Contact [facility] Diagnoses Nonalcoholic fatty liver disease Elevated liver enzymes Procedures DDI VIBRATION CONTROLLED TRANSIENT ELASTOGRAPHY (VCTE) LIVER ELASTOGRAPHY W/O IMAG W/I&R Lydia Gaona PA-C [id number] [place] [phone] Referral ID Status Reason Start Date Expiration Date V isits Requested Visits Authorized [id number] Closed Auto-Generate d Referral 10/23/2022 10/24/2023 1 1 [facility] for visit Narrative* Outpatient Procedure (Routine) - Closed Specialty Diagnoses / Procedures Referred By Julee t Referred To [facility] [place] Diagnoses Gastroesophageal reflux disease without esophagitis Delayed gastric emptying NAFLD (nonalcoholic fatty liver disease) Esophageal dysphagia Procedures EGD - THERAPEUTIC, EUS, OR TUBE INTERVENTIONS ESOPHAGOGASTRODUODENOSC OPY TRANSORAL DIAGNOSTIC [place] [address] [place] [phone] Referral ID Status Reason Start Date Expiration Date V isits Requested Visits Authorized [id number] Closed Auto-Generate d Referral 01/06/2023 01/07/2024 1 1 [facility] Instructions * Patient Instructions - Akbar Tubbs [...] Will No August 17 9:52am Power of Online Content Editor No August 17 9:52am Advance Directive Response Recorded Date/ Time Name of Medical Power of Online Content Editor JEANNE EARL Meyers 2023 7:09pm Living Will Yes 2023 7 :09pm Power of Online Content Editor Yes 2023 7:09pm Chief Complaint and Reason [...] antral vascular ectasia) Chief Complaint GASTRITIS FLANK Chief Complaint Admit Date screening March 29, 2025 7: 23am Reason for Referral Specialty Diagnoses / Procedures Referred By Contac t Referred To Contact Nutrition Diagnoses Nonalcoholic fatty liver disease Elevated liver enzymes Procedures CONSULT TO NUTRITION THERAPY MEDICAL NUTRITION ASSMT&IVNTJ INDIV EACH 15 DE MEDICAL NUTRITION ASSMT&IVNTJ INDIV EACH 15 DE MEDICAL NUTRITION ASSMT&IVNTJ INDIV EACH 15 DE MEDICAL NUTRITION ASSMT&IVNTJ INDIV EACH 15 DE Lydia Gaona PA-C [address] [place] [address] Referral ID Status Reason Start Date Expiration Date Visits Requested Visits Authorized [id number] Authorized PCP Requested Referral 11/25/2022 11/25/2023 1 1 Additional Source Comments Transfer Center Note - Yadi Wilkins RN - 08/30/2017 7:08 PM EST Miscellaneous Notes (unrecog nized section and content) Narrative: Coming from [facility] . Report taken from Dr. Chu. Pt reporting 1 hr of vision changes. Unclear what eye was effected. Symptoms have resolved. Oxygenation: 180/110, 80, 98.6, 16, 98%RA in this encounter INFORMATION SOURCE (unrecogn ized section and content) DATE CREATED AUTHOR 02/06/2018 [facility] DATE CREATED AUTHOR AUTHOR'S ORGANIZ ATION 02/07/2018 [facility] DATE CREATED AUTHOR AUTHOR'S ORGANIZ ATION 02/07/2018 [facility] DATE CREATED AUTHOR AUTHOR'S ORGANIZ ATION 04/01/2020 [facility] DATE CREATED AUTHOR AUTHOR'S ORGANIZ ATION 12/31/2020 [facility] DATE CREATED AUTHOR AUTHOR'S ORGANIZ ATION 10/16/2021 [facility] DATE CREATED AUTHOR AUTHOR'S ORGANIZ ATION 02/10/2023 [facility] DATE CREATED AUTHOR AUTHOR'S ORGANIZ ATION 05/09/2024 [facility] DATE CREATED AUTHOR AUTHOR'S ORGANIZ ATION 01/12/2025 [facility] DATE CREATED AUTHOR AUTHOR'S ORGANIZ ATION 04/06/2025 [facility] Source Comments (unrecognize d section and content) In the event this informatio n is protected by the Federal Confidentiality of Alcohol and Drug Abuse Patient Records regulations: The Federal rules restrict any use of the information to criminally investigate or prosecute any alcohol or drug abuse patient.[facility] the event this information is protected by the Federal Confidentiality of Alcohol and Drug Abuse Patient Records regulations: The Federal rules restrict any use of the information to criminally investigate or prosecute any alcohol or drug abuse patient.[facility] Hospital[facility] the event this information is protected by the Federal Confidentiality of Alcohol and Drug Abuse Patient Records regulations: The Federal rules restrict any use of the information to criminally investigate or prosecute any alcohol or drug abuse patient.[facility] Hospital[facility] the event this information is protected by the Federal Confidentiality of Alcohol and Drug Abuse Patient Records regulations: The Federal rules restrict any use of the information to criminally investigate or prosecute any alcohol or drug abuse patient.[facility] the event this information is protected by the Federal Confidentiality of Alcohol and Drug Abuse Patient Records regulations: The Federal rules restrict any use of the information to criminally investigate or prosecute any alcohol or drug abuse patient.[facility] the event this information is protected by the Federal Confidentiality of Alcohol and Drug Abuse Patient Records regulations: The Federal rules restrict any use of the information to criminally investigate or prosecute any alcohol or drug abuse patient.[facility] Hospital[facility] the event this information is protected by the Federal Confidentiality of Alcohol and Drug Abuse Patient Records regulations: The Federal rules restrict any use of the information to criminally investigate or prosecute any alcohol or drug abuse patient.[facility] Hospital[facility] the event this information is protected by the Federal Confidentiality of Alcohol and Drug Abuse Patient Records regulations: The Federal rules restrict any use of the information to criminally investigate or prosecute any alcohol or drug abuse patient.[facility] HospitalIn the event this information is protected by the Federal Confidentiality of Alcohol and Drug Abuse Patient Records regulations: The Federal rules restrict any use of the information to criminally investigate or prosecute any alcohol or drug abuse patient.[facility] Hospital[facility] the event this information is protected by the Federal Confidentiality of Alcohol and Drug Abuse Patient Records regulations: The Federal rules restrict any use of the information to criminally investigate or prosecute any alcohol or drug abuse patient.[facility] Hospital[facility] the event this information is protected by the Federal Confidentiality of Alcohol and Drug Abuse Patient Records regulations: The Federal rules restrict any use of the information to criminally investigate or prosecute any alcohol or drug abuse patient.[facility] HospitalIn the event this information is protected by the Federal Confidentiality of Alcohol and Drug Abuse Patient Records regulations: The Federal rules restrict any use of the information to criminally investigate or prosecute any alcohol or drug abuse patient.[facility] HospitalIn the event this information is protected by the Federal Confidentiality of Alcohol and Drug Abuse Patient Records regulations: The Federal rules restrict any use of the information to criminally investigate or prosecute any alcohol or drug abuse patient.[facility] HospitalIn the event this information is protected by the Federal Confidentiality of Alcohol and Drug Abuse Patient Records regulations: The Federal rules restrict any use of the information to criminally investigate or prosecute any alcohol or drug abuse patient.[facility] HospitalIn the event this information is protected by the Federal Confidentiality of Alcohol and Drug Abuse Patient Records regulations: The Federal rules restrict any use of the information to criminally investigate or prosecute any alcohol or drug abuse patient.[facility] HospitalIn the event this information is protected by the Federal Confidentiality of Alcohol and Drug Abuse Patient Records regulations: The Federal rules restrict any use of the information to criminally investigate or prosecute any alcohol or drug abuse patient.[facility] HospitalIn the event this information is protected by the Federal Confidentiality of Alcohol and Drug Abuse Patient Records regulations: The Federal rules restrict any use of the information to criminally investigate or prosecute any alcohol or drug abuse patient.[facility] HospitalIn the event this information is protected by the Federal Confidentiality of Alcohol and Drug Abuse Patient Records regulations: The Federal rules restrict any use of the information to criminally investigate or prosecute any alcohol or drug abuse patient.[facility] HospitalIn the event this information is protected by the Federal Confidentiality of Alcohol and Drug Abuse Patient Records regulations: The Federal rules restrict any use of the information to criminally investigate or prosecute any alcohol or drug abuse patient.[facility] HospitalIn the event this information is protected by the Federal Confidentiality of Alcohol and Drug Abuse Patient Records regulations: The Federal rules restrict any use of the information to criminally investigate or prosecute any alcohol or drug abuse patient.[facility] HospitalIn the event this information is protected by the Federal Confidentiality of Alcohol and Drug Abuse Patient Records regulations: The Federal rules restrict any use of the information to criminally investigate or prosecute any alcohol or drug abuse patient.[facility] HospitalIn the event this information is protected by the Federal Confidentiality of Alcohol and Drug Abuse Patient Records regulations: The Federal rules restrict any use of the information to criminally investigate or prosecute any alcohol or drug abuse patient.[facility] HospitalIn the event this information is protected by the Federal Confidentiality of Alcohol and Drug Abuse Patient Records regulations: The Federal rules restrict any use of the information to criminally investigate or prosecute any alcohol or drug abuse patient.[facility] HospitalIn the event this information is protected by the Federal Confidentiality of Alcohol and Drug Abuse Patient Records regulations: The Federal rules restrict any use of the information to criminally investigate or prosecute any alcohol or drug abuse patient.[facility] HospitalIn the event this information is protected by the Federal Confidentiality of Alcohol and Drug Abuse Patient Records regulations: The Federal rules restrict any use of the information to criminally investigate or prosecute any alcohol or drug abuse patient.[facility] HospitalIn the event this information is protected by the Federal Confidentiality of Alcohol and Drug Abuse Patient Records regulations: The Federal rules restrict any use of the information to criminally investigate or prosecute any alcohol or drug abuse patient.[facility] Care Teams (unrecognized sec tion and content) Rn Advanced Relationship Specialty Start Date End Date Yandel Stacy PA-C [address] [place], [place] [address] PCP - General Family Practice 04/11/17 Rn Advanced Relationship Specialty Start Date End Date Yandel Stacy PA-C [address] [place], [place] [id number] PCP - General Family Practice 04/11/17 Rn Advanced Relationship Specialty Start Date End Date Yandel Stacy PA-C [address] [place], [place] [address] PCP - General Family Medicine 04/11/17 Team Status: Active Member Role Status Dates Dr. Leon South MD Family Provider Active Dr. Vijay Godinez MD Primary Care Provider Active Team Status: Inactive Member Role Status Dates Dr. Leon South MD Primary Care Provider, Referring Provider Active Michael Tatum CORRECTIONAL THERAPY TEACHER, CORRECTIONAL THERAPY TEACHER-C Attending Provider Active Team Status: Inactive Member Role Status Dates Dr. Vijay Godinez MD Primary Care Provider, Referrin g Provider Active Michael Tatum CORRECTIONAL THERAPY TEACHER, CORRECTIONAL THERAPY TEACHER-C Attending Provider Active Team Status: Active [...] Vijay Godinez MD Primary Care Provider Active Michael Tatum CORRECTIONAL THERAPY TEACHER, CORRECTIONAL THERAPY TEACHER-C Attending Provider, Referrin g Provider Active Team Status: Inactive Member Role Status Dates Dr. Vijay Godinez MD Primary Care Provider Active Michael Tatum CORRECTIONAL THERAPY TEACHER, CORRECTIONAL THERAPY TEACHER-C Attending Provider Active Rn Advanced Relationship Specialty Start Date End Date Yandel Stacy PA-C [address] [place] [address] PCP - General Family Medicine 04/11/17 Rn Advanced Relationship Specialty Start Date End Date Yandel Stacy PA-C [address] [place] [address] PCP - General Family Medicine 04/11/17 Rn Advanced Relationship Specialty Start Date End Date Yandel Stacy PA-C [address] [facility] [place] [place] [address] PCP - General Family Medicine 04/11/17 Rn Advanced Relationship Specialty Start Date End Date Yandel Stacy PA-C [address] [facility] [place] [place] [address] PCP - General Family Medicine 04/11/17 Rn Advanced Relationship Specialty Start Date End Date Yandel Stacy PA-C [address] [facility] [place] [place] [address] PCP - General Family Medicine 04/11/17 Rn Advanced Relationship Specialty Start Date End Date Yandel Stacy PA-C [address] [place] [address] PCP - General Family Medicine 04/11/17 Rn Advanced Relationship Specialty Start Date End Date Yandel Stacy PA-C [address] [place] [address] PCP - General Family Medicine 04/11/17 Team Status: Inactive Member Role Status Dates Dr. Vijay Godinez MD Primary Care Provider Active Dr. Tucker Bob MD Emergency Provider Active Rn Advanced Relationship Specialty Start Date End Date Yandel Stacy PA-C [address] [place] [address] PCP - General Family Medicine 04/11/17 Rn Advanced Relationship Specialty Start Date End Date Yandel Stacy PA-C [address] [place] [address] PCP - General Family Medicine 04/11/17 Rn Advanced Relationship Specialty Start Date End Date Yandel Stacy PA-C [address] [place] [address] PCP - General Family Medicine 04/11/17 Rn Advanced Relationship Specialty Start Date End Date Yandel Stacy PA-C [address] [place] [address] PCP - General Family Medicine 04/11/17 Rn Advanced Relationship Specialty Start Date End Date Yandel Stacy PA-C [address] [place] [address] PCP - General Family Medicine 04/11/17 Rn Advanced Relationship Specialty Start Date End Date Yandel Stacy PA-C [address] [place] [address] PCP - General Family Medicine 04/11/17 Rn Advanced Relationship Specialty Start Date End Date Yandel Stacy PA-C [address] [place] [address] PCP - General Family Medicine 04/11/17 Rn Advanced Relationship Specialty Start Date End Date Yandel Stacy PA-C [address] [place] [address] PCP - General Family Medicine 04/11/17 Rn Advanced Relationship Specialty Start Date End Date Madhu Stacy PA-C PCP - General Family Medicine 04/11/17 Chio Flaherty APRN.BULK SEALER OPERATOR [address] [place] [address] Recreation Counselor Family Medicine 07/20/24 Sally Lantigua APRN.BULK SEALER OPERATOR [address] [place] [address] Recreation Counselor Family Medicine 07/20/24 Rn Advanced Relationship Specialty Start Date End Date Vijay Godinez MD [address] [address] PCP - General Internal Medicine 10/02/24 Chio Flaherty, BUSHER HELPER.BULK SEALER OPERATOR [address] [place] [address] Recreation Counselor Family Medicine 07/20/24 Sally Lantigua BUSHER HELPER.BULK SEALER OPERATOR [address] [place] [address] Recreation Counselor Family Medicine 07/20/24 Rn Advanced Relationship Specialty Start Date End Date Vijay Gdoinez MD [address] [address] PCP - General Internal Medicine 10/02/24 Chio Flaherty APRN.BULK SEALER OPERATOR [address] [place] [address] Recreation Counselor Family Medicine 07/20/24 Sally Lantigua APRN.BULK SEALER OPERATOR [address] [facility] [place] [place] [address] Recreation Counselor [facility] 07/20/24 Rn Advanced Relationship Specialty Start Date End Date Vijay Godinez MD [address] [address] PCP - General Internal Medicine 10/02/24 Chio Flaherty BUSHER HELPER.BULK SEALER OPERATOR [address] [place] [address] Recreation Counselor [facility] 07/20/24 Sally Lantigua BUSHER HELPER.BULK SEALER OPERATOR [address] [facility] [place] [place] [address] [facility] 07/[facility]/24 Rn Advanced Relationship Specialty Start Date End Date Vijay Godinez MD [address] [address] PCP - General Internal Medicine 10/02/24 Chio Flaherty, BUSHER HELPER.BULK SEALER OPERATOR [address] [place] [address] Recreation Counselor Family Medicine 07/20/24 Sally Lantigua BUSHER HELPER.BULK SEALER OPERATOR [address] [facility] [place] [place] [address] Recreation Counselor Family Medicine 07/20/24 Rn Advanced Relationship Specialty Start Date End Date Vijay Godinez MD [address] [facility] [address] [place] [address] PCP - General Internal Medicine 10/02/24 Chio Flaherty APRN.BULK SEALER OPERATOR [address] [place] [address] Recreation Counselor Family Medicine 07/20/24 Sally Lantigua APRN.BULK SEALER OPERATOR [address] [place], [place] [address] Recreation Counselor [facility] 07/20/24 Team Status: Active Member Role/Relationship Status Dates Dr. Vijay Godinez MD Primary Care Provider Active Team Status: Inactive Member Role/Relationship Status Dates Dr. Vijay Godinez MD Primary Care Provider Active Start: March 29, 2025 End: March 29, 2025 Dr. Robbin Ma MD Attending Provider Active art: March 29, 2025 End: March 29, 2025 Dr. Robbin Ma MD Referring Provider Active St art: March 29, 2025 End: March 29, 2025 Reason for Visit (unrecogniz ed section and content) Reason Onset Date Comments Refill Request 03/22/2022 Reason Onset Date Comments Refill Request 08/17/2022 Reason Comments Non Alcoholic Fatty Liver Disease Reason Comments Established Patient Nonalcoholic fatty l iver disease, elevated liver enzymes Reason Comments Patient Education Assessment Specialty Diagnoses / Procedures Referred By Contac t Referred To Contact Nutrition Diagnoses Nonalcoholic fatty liver disease Elevated liver enzymes Procedures CONSULT TO NUTRITION THERAPY MEDICAL NUTRITION ASSMT&IVNTJ INDIV EACH 15 DE MEDICAL NUTRITION ASSMT&IVNTJ INDIV EACH 15 DE MEDICAL NUTRITION ASSMT&IVNTJ INDIV EACH 15 DE MEDICAL NUTRITION ASSMT&IVNTJ INDIV EACH 15 DE Lydia Gaona PA-C [address] [place] [address] Referral ID Status Reason Start Date Expiration Date V isits Requested Visits Authorized [id number] Closed PCP Requested Referral 11/25/2022 11/25/2023 1 [...] may be documented in a n alternate sectionGoals may be documented in an alternate section FOR RECORDS PERTAINING TO PATIENTS [...] BE BASED ON THE PRIMARY CLINICAL RECORDS. [facility] [employer] [facility]. provides no warranty or guarantee of the accuracy or completeness of information in this document.
--- NOTE | 2025-04-08 18:56 | ED.VIS.CHEST ---
HPI History of Present Illness Chief Complaint: Chest Pain Informant: patient and spouse/S.O. Narrative Narrative: Presents to ED private vehicle for left-sided chest pain while driving home from work. Symptoms started 4 PM. Reported initially that she just had to stretch her muscles however it turned into a heaviness and she had pain down her left arm. No recent cough. No recent similar symptoms. Hypertension history no diabetes or hyperlipidemia. Denies family history of MIs at young age. Denies tobacco history. Denies recent travel surgeries or immobilizations. No history of PE or DVT. Symptoms have subsided on my examination. She does have a history anxiety felt symptoms acting up after her chest symptoms started. No history of stress test no history of heart caths. Prior Similar Symptoms: No CVD Risk Factors: Positive for Hypertension; Negative for Diabetes, Hypercholesterolemia, Family History 1' </=55 or Smoking PE Risk Factors: Negative for Recent Travel/Surgery, Recent Immobilization or Prior DVT or PE [facility] Medical History Wears contact lenses Alcohol use Migraine headache Difficulty swallowing History of hiatal hernia Gastric reflux Shortness of breath on exertion History of in vitro fertilization Morbid (severe) obesity due to excess calories Hypersomnia, unspecified Hypertension GERD (gastroesophageal reflux disease) Vaginal delivery Medical History no medical history Home Medications ?Medication ?Instructions ?Recorded ?Last Taken ?Type amlodipine 10 mg tablet 10 mg PO DAILY chronic htn 03/19/19 08/18/22 History labetalol 200 mg tablet 200 mg PO TID 04/09/22 08/18/22 History omeprazole 40 mg capsule,delayed 40 mg PO BID 04/09/22 08/18/22 History release ursodiol 250 mg tablet 250 mg PO BID #180 tabs 09/30/22 Unknown Rx naproxen 500 mg tablet (Naprosyn) 500 mg PO BID PRN pain #20 tabs 01/17/23 Unknown Rx ondansetron 4 mg disintegrating 4 mg PO Q8H PRN PRN Nausea #10 tabs 01/17/23 Unknown Rx tablet oxycodone-acetaminophen 5 mg-325 1 tab PO Q6H PRN PRN Pain 3 days 01/17/23 Unknown Rx mg tablet #12 TABLETS tamsulosin 0.4 mg capsule (Flomax) 0.4 mg PO DAILY #7 caps 01/17/23 Unknown Rx Allergy/AdvReac Type Severity Reaction Status Date / Time No Known Allergies Allergy Verified 04/08/25 17:28 Family History Mother Hypertension Aunt Lung cancer Grandmother Hypertension Heart disease Grandfather Hypertension Grandfather Diabetes Grandmother TIA (transient ischemic attack) Hypertension Uncle Colon cancer Family History no significant family his Surgical History Hx of wisdom tooth extraction Surgical History no surgical history Social History Smoking Status: Never smoker alcohol intake: current ROS ROS ED Constitutional Constitutional ED: Denies chills, fever(s) or sweats ENT ENT ED: Denies sore throat Cardiovascular Cardiovascular: Reports chest pain; Denies leg edema, palpitations or racing heartbeat Respiratory/Chest Respiratory/Chest: Denies cough, dyspnea or dyspnea on exertion Gastrointestinal Gastrointestinal: Denies abdominal pain, diarrhea, nausea or vomiting Genitourinary Genitourinary ED: Denies dysuria, hematuria or urinary frequency Musculoskeletal Musculoskeletal: Denies back pain, extremity pain or neck pain Integumentary Denies rash or wounds Neurologic Neurologic: Denies headache(s), paresthesias or weakness EXAM Physical Exam Const Vital Signs: 04/08/25 17:29 04/08/25 17:32 04/08/25 18:23 Temperature 97.1 F L Temperature Source Temporal Pulse Rate 97 Respiratory Rate 16 Respiratory Effort Normal Blood Pressure 173/125 H Blood Pressure Mean 141 Pulse Ox 98 98 Oxygen Delivery Method Room Air Room Air 04/08/25 18:32 04/08/25 18:45 04/08/25 19:00 Temperature Temperature Source Pulse Rate 88 85 88 Respiratory Rate 18 19 H 20 H Respiratory Effort Blood Pressure 138/100 H 145/97 H 132/94 H Blood Pressure Mean 112 112 106 Pulse Ox 99 99 99 Oxygen Delivery Method 04/08/25 20:00 04/08/25 20:36 Temperature 97.1 F L Temperature Source Pulse Rate 89 86 Respiratory Rate 16 18 Respiratory Effort Blood Pressure 116/90 H 137/93 H Blood Pressure Mean 98 107 Pulse Ox 100 99 Oxygen Delivery Method Room Air Positive well nourished and well developed General Appearance ED: well developed and NAD HEENT Reports moist mucous membranes normocephalic and atraumatic Eyes General Eye ED: Yes normal appearance of both eyes Neck full ROM Chest Wall Chest: Negative for tenderness Resp normal respiratory effort and normal air movement Effort and Inspection: symmetric chest movement; Negative for respiratory distress Cardio regular rate, regular rhythm and no murmurs Peripheral Pulses: pulses 2+ throughout GI normal to inspection, nondistended, normoactive bowel sounds and non-tender Palpation: Negative for guarding or rebound tenderness present Extremity normal to inspection General Extremety ED: Negative for edema or tenderness General Extremity: Negative for edema Neuro oriented x3 and no sensory deficits noted Sensorium / Orientation: awake and alert Skin no rashes or lesions noted and no wounds Heart Score History: Slightly/Non-Suspicious ECG: Normal Age: </= 45 years Risk Factors: 1 or 2 Risk Factors Troponin: </= Normal Limit Score: 1 MDM MDM MDM Narrative Medical decision making narrative: Interventions / MDM: Differential diagnosis: Chest pain Diagnosis considered but do not suspect: Pulmonary embolism however PERC criteria negative. My EKG interpretation: Sinus rate of 87, no ST changes. Isolated T wave version lead III. Nonspecific. Imaging independently reviewed and interpreted by myself: 2 view chest x-ray: No acute process. External documents reviewed: N/A Test considered but not ordered:N/A ED course: Patient chest pain while driving at 4 PM. EKG normal. Cardiac workup initiated. Nursing triage initiated lab work due to busy department. Initial troponin was negative. Discussed results with patient symptoms subsiding. Will monitor and plan for delta troponin. 2 view chest x-ray negative. 2031: Repeat troponin negative. Symptoms improved. Discharged with return precautions. All questions were answered. Re-evaluation: stable Disposition discussed with patient/family/significant other: Patient Case discussed with consulting clinician: N/A This note was generated with TxtFeedback dictation software. It may contain incorrect words, spelling, and punctuation that were not noted in checking the note before signing. Lab Data Attestation: I reviewed the patient's lab results. Labs: Laboratory Results - last 24 hr 04/08/25 04/08/25 17:45 19:41 WBC 9.6 RBC 5.58 H Hgb 13.3 Hct 40.8 MCV 73.1 L MCH 23.8 L MCHC 32.6 RDW Std Deviation 37.7 RDW Coeff of Too 14.6 Plt Count 309 MPV 9.7 Immature Gran % (Auto) 0.300 Neut % (Auto) 65.1 Lymph % (Auto) 25.5 [place] % (Auto) 6.1 Eos % (Auto) 2.2 Baso % (Auto) 0.8 Absolute Neuts (auto) 6.2 Absolute Lymphs (auto) 2.44 Nucleated RBC % 0 Sodium 139 Potassium 3.9 Chloride 103 Carbon Dioxide 19.8 L Anion Gap 16 H BUN 13 Creatinine 0.57 L Estim Creat Clear Calc 125.13 Est GFR (MDRD) Non-Af 119 BUN/Creatinine Ratio 23.1 H Glucose 110 H Calcium 9.7 Troponin T High Sens < 6 Troponin T Hi Sens 2 Hr < 6 Radiography Diagnostic Testing: Clinical Impression(s) from Imaging Studies Chest X-Ray 04/08/25 17:58 IMPRESSION: No acute cardiopulmonary disease. Reading Location: [facility] Discharge Plan Triage Chief Complaint: Chest Pain ED Provider: rAam [place] Dx/Rx/DC Orders Clinical Impression: Chest pain, History of hypertension Instructions: ED Chest Pain, Uncertain Cause Prescriptions: No Action labetalol 200 mg tablet 200 mg PO TID omeprazole 40 mg capsule,delayed release(DR/EC) 40 mg PO BID amlodipine 10 MG tablet 10 mg PO DAILY oxycodone-acetaminophen [oxycodone-acetaminophen] 5-325 mg tablet 1 tab PO Q6H PRN PRN (Reason: Pain) 3 Days Qty: 12 0RF ondansetron [ondansetron] 4 mg tablet,disintegrating 4 mg PO Q8H PRN PRN (Reason: Nausea) Qty: 10 0RF naproxen [Naprosyn] 500 mg tablet 500 mg PO BID PRN (Reason: pain) Qty: 20 0RF tamsulosin [Flomax] 0.4 mg capsule 0.4 mg PO DAILY Qty: 7 0RF ursodiol 250 mg tablet 250 mg PO BID Qty: 180 1RF Primary Care Provider: Robbin Ma Referrals: Robbin Ma MD [Primary Care Provider] - 3-5 Days Activity Restrictions/Additional Instructions: EKG and cardiac workup negative. Follow-up with your doctor for further testing. If your symptoms reoccurs and worsen return to the ED for reevaluation. Print Language: Korean Disposition Disposition: Home, Self Care Discharge Date/Time: 04/08/25 20:39
[2025-04-08 20:19] LABS: Troponin T High Sens 2 HR < 6 ng/L (<=14)
== END 2025-04-08 20:39 | disposition home or self-care (01) ==
PROVIDERS: Emergency Provider Emergency Medicine; PCP Family Medicine; Visit Provider Emergency Medicine
DX: R07.9 Chest pain, unspecified (principal); M79.602 Pain in left arm; I10 Essential (primary) hypertension; F41.9 Anxiety disorder, unspecified; Z79.899 Other long term (current) drug therapy
CPT/HCPCS: 71046; 80048; 84484; 85025; 93005; 99284; A4216

== ENCOUNTER → 2025-05-14 | Outpatient (CLI) | payer BC, SELFPAY ==
--- OUTSIDE RECORDS SUMMARY | 2025-01-10 07:22 | XMS RPT_ITS ---
Author Name Auto Generated Organization [facility] Care Team Providers Care Photogeologist Name Role Phone JACLYN BARBER Referring Unavailable LATOUF, BUTROS Primary Care Unavailable JACLYN BARBER Attending Unavailable MADHU ECHEVARRIA Primary Care Unavailable MICHAEL MILLIGAN Attending Unavailable WALE, MADHU GOLDSMITH Primary Care Unavailable LATOUF, BUTROS Primary Care Unavailable JACLYN BARBER Attending Unavailable JACLYN BARBER Attending Unavailable LATOUF, BUTROS Primary Care Unavailable BARBERJACLYN SINGH Attending Unavailable LATOUF, BUTROS Primary Care Unavailable PROBLEMS DATE TYPE CONDITION / CODE ATTENDING STATUS [facility] 10/31/2024 Active Metabolic syndro me / E88.810(ICD-10) JACLYN BARBER Active [facility] 10/30/2024 Active Hyperinsulinemia / E16.1(ICD-10) JACLYN BARBER Active [facility] 12/25/2021 Active GERD without eso phagitis / K21.9(ICD-10) JACLYN BARBER Active [facility] 10/20/2017 Active Hypertension, es sential / I10(ICD-10) JACLYN BARBER Active [facility] 10/02/2024 Active Class 1 obesity with serious comorbidity and body mass index (BMI) of 34.0 to 34.9 in adult, unspecified obesity type / E66.811(ICD-10) NA Active [facility] 10/02/2024 Active Class 1 obesity with serious comorbidity and body mass index (BMI) of 34.0 to 34.9 in adult, unspecified obesity type / Z68.34(ICD-10) NA Active [facility] 10/23/2022 Active Nonalcoholic fat ty liver disease / K76.0(ICD-10) NA Active [facility] 10/02/2024 Active IFG (impaired fa sting glucose) / R73.01(ICD-10) NA Active [facility] 10/02/2024 Active Screening for di abetes mellitus / Z13.1(ICD-10) NA [facility] 10/02/2024 Active Screening for de ficiency anemia / Z13.0(ICD-10) NA Active [facility] 10/02/2024 Active Screening choles terol level / Z13.220(ICD-10) NA Active [facility] 10/02/2024 Active Screening for me tabolic disorder / Z13.228(ICD-10) NA Active [facility] PROCEDURES No Procedure Records Found RESULTS PROGRESS Observed: 01/10/2025 7:30 AM Status: COMPLETED Source: [facility] HNO ID: [id number] Author: JACLYN BARBER APRN.TEACHER EDUCATION DIRECTOR Service: ? Author Type: Nurse Practitioner Type: Progress Notes Filed: 01/10/2025 09:58 Note Text: Some documentation from previous visit of 11/29/2024 was copied and pasted, documentation has been reviewed and edited as necessary for today's visit. Patient Summary: Forest is a 39 year old Female who presents for follow-up evaluation of obesity/weight management to treat and prevent related co-morbidities. In our previous visits we have discussed lifestyle intervention including a nutrition recommendations and physical activity optimization. Her last office visit was 6 weeks ago. Assessment/plan from last visit: Metformin ER 500 twice a day 0730 and with dinner - 1 gm twice a day with lunch and dinner Interval History PT specifies the following items as new or significant updates since the last appointment: More hungry. Consistent with protein shake in the morning during the week but adding avocado toast on the WE has added morning and afternoon snacks Weight loss since last vist: +4 lb Date Weight BMI AOM 01/10/2025 177 lb 35.68 topiramate 25 mg BID 11/29/2024 173 lb 34.88 10/31/2024 174 lb 35.08 Metformin ER 1 gm bid 10/02/2024 170 lb 34.27 Metformin ER 500 mg bid WC 43.5 NC 14.5 5% weight loss = 167 lbs, 10% weight loss = 158 lbs Anti-obesity medications: Metformin. Benefit:less hunger later in the day and more fullness Adverse effects: diarrhea 4-5 times a week - Immodium helps Weight promoting medications: none Previous Diet (initial appointment): Diet/Nutrition overview: Awake - 0700 3 days a week - sips large coffee mint mocha mix from 0830 -3 B - SKIP/WE 50% of the time - eggs and toast S - none L - SKIP/ WE if did not eat bkft [employer] RB sandwich with sauce or leftovers S - none D - 7-8 pm lasagne or tacos or sausage rice casserole or teriyaki chicken and rice or grilled meat/baked potato with tea with SF drink mixes. eats out 3-4 times a week Chipotle - Steak, white rice, black beans, s cream, cheese, corn tomatoes, chips, sweet tea Subway - 6 in wheat Nauruan parra veg sweet tea Red Lobster - shrimp scampi, 2 biscuits, occas Anshul salad, sweet tea Green [place] - chicken fingers, fries or smothered grilled chicken and cottage cheese with sweet tea S - none Fluids: sweet tea and tea with SF mixes, 3 days a week - sips large coffee mint mocha mix from 0830 -3, no water Bedtime - midnight Quality of diet: 24hr recall suggests somewhat unhealthy diet. Characterization of diet:Structured, increased consumption of sugar sweetened beverages, and skip meals. Supervisor Winter of impaired eating habits:emotion and stress causes her to eat out instead of planning healthy meals and food prepping. Not hungry, gets full easily, stays full for up to 6 hours. Eating Disorder no Cravings: salty, crunchy Dietary changes: Balanced B - 0730 30 gm premier protein shake / WE adding avocado toast S - 1030 Two Good yogurt L - 1230 Chicken salad 10 g protein with 6 wheat crackers OR ham/cheese with hummus with césar chips S - 3 pm Chomp D - [id number] Chipotle - Chicken, white rice, black beans, s cream, cheese, corn tomatoes - with double protein or 1/2 beans and 1/2 beans OR 4 BBQ chicken wings and shrimp scampi asparagus or b potato OR burirra tacos pulled been on 2 corn tortillas with side of rice S - none Fluids - water Current Barriers: food cravings - sweet in the afternoon, grazing/irregular meal patterns, and excessive hunger/lack of satiety signals, busy schedule Exercise: Yes - intentionally walking after lunch Regular exercise: no Strength/resistance exercise:no Barriers to regular exercise? no Work-related activity:Sedentary. 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 Sleep: stable 6-7 hours. CrCl cannot be calculated (Unknown ideal weight.). 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 360 tablet 1 ketoconazole (NIZORAL) 2 % shampoo WASH THE SCALP ONCE EVERY OTHER WASH, LETTING IT LATHER FOR 3-5 MINUTES BEFORE RINSING amLODIPine (NORVASC) 10 mg tablet Take 1 tablet by mouth once daily. 90 tablet 1 labetalol (TRANDATE) 200 mg tablet Take 1 tablet by mouth three times daily. 90 tablet 1 omeprazole (PRILOSEC) 40 mg capsule Take 1 capsule by mouth twice daily before meals. 180 capsule 1 No current facility-administered medications for this visit. 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 Physical Exam Constitutional: She appears healthy. No distress. Results: recent labs reviewed with the patient. Latest Ref Rng AND Units 10/02/2024 CMP Sodium 136 - 144 mmol/L 137 Potassium 3.7 - 5.1 mmol/L 3.8 Chloride 98 - 107 mmol/L 104 CO2 22 - 30 mmol/L 21 Glucose 74 - 99 mg/dL 97 BUN 7 - 21 mg/dL 15 Creatinine 0.58 - 0.96 mg/dL 0.59 EGFR >=60 mL/min/1.73m? 119 Protein, Total 6.3 - 8.0 g/dL 7.6 Albumin 3.9 - 4.9 g/dL 4.6 Calcium 8.5 - 10.2 mg/dL 9.7 Bilirubin, Total 0.2 - 1.3 mg/dL 0.2 AST 13 - 35 U/L 19 ALT 7 - 38 U/L 26 Alkaline Phosphatase 34 - 123 U/L 74 Cholesterol, Total (mg/dL) Date Value 10/02/2024 189 06/08/2019 187 HDL Cholesterol (mg/dL) Date Value 10/02/2024 50 06/08/2019 71 LDL Cholesterol, Calculated (mg/dL) Date Value 10/02/2024 91 06/08/2019 100 Triglyceride (mg/dL) Date Value 10/02/2024 238 06/08/2019 81 Latest Ref Rng AND Units 10/02/2024 CBC WBC 3.70 - 11.00 k/uL 7.44 RBC 3.90 - 5.20 m/uL 5.49 Hemoglobin 11.5 - 15.5 g/dL 13.1 Hematocrit 36.0 - 46.0 % 40.1 MCV 80.0 - 100.0 fL 73.0 MCH 26.0 - 34.0 pg 23.9 MCHC 30.5 - 36.0 g/dL 32.7 RDW-CV 11.5 - 15.0 % 14.9 Platelet Count 150 - 400 k/uL 266 MPV 9.0 - 12.7 fL 10.1 Vitamin D 25 Hydroxy Date Value Ref Range Status 10/10/2023 29.2 (L) 31.0 - 80.0 ng/mL Final 08/28/2018 39.1 31.0 - 80.0 ng/mL Final Comment: Classification of 25 [place] Vitamin D status: Insufficiency/Moderate Deficiency: < or = 30 ng/mL Sufficiency/Optimal Levels: 31 to 80 ng/mL Toxicity: > 100 ng/mL Test performed by chemiluminescent immunoassay. TSH Date Value 10/10/2023 2.140 mIU/L 01/06/2023 1.960 mIU/L 09/08/2021 1.910 uU/mL 08/28/2018 1.810 uU/mL Hemoglobin A1C (%) Date Value 10/02/2024 4.7 01/06/2023 5.0 08/28/2018 5.1 04/20/2017 5.2 Insulin, Total 10/02/2024 Ref range 2.6 - 24.9 uU/mL Value 78.7 High Anti-Obesity Medications >Phentermine: No uncontrolled HTN, No CVD Hx or hx of seizure disorder. No MAOI inhibitor use. No drug abuse hx. Crcl > 15. >Topiramate/zonisamide: No seizure or glaucoma hx. No hx of migraines, or hx of poor sleep. Is of Child bearing age - male infertility. Per patient -1 kidney stone in 2022 with no other kidney stones noted on CT >Qsymia: see above >Contrave: No uncontrolled HTN or hx of seizure disorder. No MAOI inhibitor use. No opiate use. >Saxenda/Wegovy/Ozempic: Cost. Ins coverage? >Metformin: eGFR > 30. No contraindications or medication interactions. Assessment/Plan: Forest Ovalle is a 39 year old yo with Class II obesity who presented today for follow up for supervised weight loss to treat and prevent related co-morbidities. 1. Hypertension, essential - ICD9: 401.9, ICD10: I10 (primary diagnosis) - treated with labetalol and amlodipine - Whole food balanced protein low-carb nutrition 2. GERD without esophagitis - ICD9: 530.81, ICD10: K21.9 - Discussed lifestyle modifications including losing weight, limiting caffeine, no meals three hours before sleep, and head of bed elevation - Omeprazole 40 mg - Whole food balanced protein low-carb nutrition 3. Hyperinsulinemia - ICD9: 251.1, ICD10: E16.1 - METFORMIN ER 500 MG TABLET,EXTENDED RELEASE 24 HR 4. Metabolic syndrome - ICD9: 277.7, ICD10: E88.810 - METFORMIN ER 500 MG TABLET,EXTENDED RELEASE 24 HR 5. Nonalcoholic fatty liver disease - ICD9: 571.8, ICD10: K76.0 - Whole food balanced protein low-carb nutrition 6. Class 1 obesity with serious comorbidity and body mass index (BMI) of 34.0 to 34.9 in adult, unspecified obesity type - ICD9: 278.00, V85.34, ICD10: E66.811, Z68.34 Weight increased - METFORMIN ER 500 MG TABLET,EXTENDED RELEASE 24 HR -1 g twice a day with meals - TOPIRAMATE 25 MG TABLET Topiramate. Discussed risks/benefits with the patient. Patient aware that this is an off-label use of the medication. Begin with 25 mg at bedtime and will increase to 2 tablets as tolerated. Will notify me if experiencing any adverse effects. Denies history of seizures or glaucoma. No official dx of hx of migraines but does get headaches, no history of poor sleep. Advised not to mix with alcohol. Educated on increased risk for drowsiness, dizziness, fatigue, kidney stones, osteoporosis and increased eye pressure. Per patient -1 kidney stone in 2022 with no other kidney stones noted on CT -lengthy discussion regarding increased risk of another kidney stone and she voiced understanding and would like to begin topiramate. We discussed adding lemon/real lemon to water. Patient of childbearing age. Discussed the risk of defects with topiramate and the need for double control methods as well as regular tests. Contraception: male infertility -Reviewed whole food balanced protein, controlled carbohydrate nutrition plan. Encouraged her to use online resources and read nutrition labels and make sure to eat at least 30 g of protein per meal with fewer than 30 g of carbohydrates. Given information about apps to use. Given information about high-protein bars to supplement protein when needed. - Given protein, whole food and high protein nutrition lists. - Given information on protein, carbs and processed versus Whole Foods - Encouraged the patient to improve her physical activity. Although cardiovascular exercise is most beneficial for weight loss initially, we discussed healthy muscle from a combination of resistance training and cardiovascular exercise is the best penitentiary plan. An overall goal of 150-200 minutes per week of exercise has been effective in weight loss and maintenance. Prescription instructions reviewed with patient as applicable. Potential red flag symptoms discussed with the patient. Reviewed appropriate action plan to take if red flag symptoms occur. Patient agreeable to treatment plan. Follow up in 3 months Jaclyn Barber CNP Advanced Education from the [employer] Medical Decision Making: Problems: Moderate: 1+ chronic illnesses with change and 2+ stable chronic illnesses Risk: Moderate: Drug management and Moderate risk from testing/treatment Medical Decision Making Level: 4 - Moderate CNOV Observed: 01/10/2025 7:30 AM Status: COMPLETED Source: [facility] Office Visit (OBGYWM) FOREST OVALLE ([id number]) 1985 F Date Time Provider Department 01/10/25 7:30 AM JACLYN BARBER During your visit today, we recorded the following information about you: Pulse Respiration Blood pressure Weight 94/minute 16/minute 132/88 80.3 kg Jaclyn Barber APRN.TEACHER EDUCATION DIRECTOR 01/10/2025 8:19 AM Addendum Venkata protein bar - 28g protein 3 net carb 150 maude Quest 20-21 prot IQ bars 12 g prot 170 maude Real lemon or lemon in water - topiramate and hx of kidney stone - Whole food balanced protein, controlled carbohydrate nutrition plan - 30 g of protein 3 times a day and up to 30 g of carbs at lunch and dinner only. 1st meal of the day- 30g protein with limit of 2 gm carbohydrates. Premier Protein or generic 30 gm protein 1 gm sugar 2. 2-3 eggs and some unbreaded meat and/or cheese. 3. 2-3 eggs and 1/2 of protein shake or one of the yogurts below: :ratio, KETO Friendly Dairy Snack 1 single svg - 15g protein AND 2g carb Two Good Lowfat [place] Yogurt, Lower Sugar - 12g protein AND 2g carb No fruit, vegetables, bread, grain, other brands of yogurt, Smoothies, etc. Lunch and dinner - 30 gm protein is the goal with less than 30 gm carbohydrates All snacks and meals - all protein or more protein than carbs Protein - no carbs Egg 1 large - 6g Egg white 1 large 3.6g 3 oz is approximately the size of a deck of cards and equals 21 g protein so 4 oz is 28 gm protein Beef, Chicken, [place], Pork, Duran 1 oz 7g Fish, Tuna Fish 1 oz 7g (Starkist tuna packet 2.6 oz 17 gm protein) Seafood (Crabmeat, Shrimp, Lobster) 1 oz 6g Protein shakes (read labels) Premier Protein or generic [employer] Equate, [employer] High Performance- 30g protein AND 1g carb - meal replacement Premier Protein powder or generic- 30 g protein, 1g carb Fairlife 30 gram protein - 30g protein AND 3g carb BOOST Glucose Control Max 30g Protein Nutritional Drink - 30g protein AND 1 carb - meal replacement Slimfast High Protein - 20g protein AND 1g carb Ensure Max Protein Nutrition Shake 30g protein AND 2 carb OWYN plant based 100 % vegan no dairy, soy, wheat/gluten 32g protein 0 net carb (not a meal replacement) Premier Protein plant protein powder - 25g protein, 0 sugar/2g carb Vanilla and chocolate (not a meal replacement) Protein AND carbs Beef/[place] Jerky 1 oz dried 10-15g protein - check carb count, can be high if sugar added Slim Jerardo - 6 gm protein and 4 net carb Great Value original turkey sausage sticks - 7 gm protein and 2 gm carb Belinda (at [employer]) Original smoked sausage sticks - 8 gm protein and 0 carb Imitation Crab Meat 1 oz - 2g protein AND 4g carb Milk, skim 2% or 1% 8 oz - 8g protein AND 12g carb Fairlife 2% milk 8 oz -13g protein AND 6g car [place] yogurt Full Fat [place] Yogurt 1 cup - 20.4g protein AND 9.1g carb 2% [place] Yogurt 1 cup - 22.7g protein AND 9.1g carb 0% (fat-free) [place] Yogurt - 1 cup 24g protein AND 9.3g carb Aldi Protein [place] yogurt single svg - 13/g15g protein AND 7g carb Chobani Zero Sugar single svg: - 12g protein AND 5g carb Dannon [place] Light + Fit 1 single svg - 12g protein AND 9g carb Oikos Pro single svg - 20g protein AND 8g carb Oikos Triple Zero [place] Nonfat Yogurt 1 single svg - 15g protein AND 7g carb :ratio, KETO Friendly Dairy Snack 1 single svg - 15g protein AND 2g carb :ratio Protein 1 single svg - 25g protein AND 8g carb Two Good Lowfat [place] Yogurt, [place], Lower Sugar - 12g protein AND 2g carb Yoplait Protein 1 single svg 15g protein AND 5g carb Dairy Free - [place] unsweetened [place] almond/soy 15g protein AND 3g carb Dairy Free - True Goodness by Jada coconut-based yogurt alternative 1 g protein 1 g net carb 180 maude Drinkable yogurts: Chobani drinkable 15g, 20g and 30g protein AND 18 carb (too many carbs for breakfast) Chobani Zero Sugar 10g protein 6g carbs 50 calories Oikos Pro drinkable yogurt 1 single svg - 23g protein AND 8g carb :ratio Protein 26g protein 9g carb Cheese each oz Brie 5.9g protein AND 0.1g carb Cheddar 7g protein AND 0.4g carb Rishi 6.7g protein AND 0.7g carb Cream Cheese 1.7g protein AND 1.2g carb GBS whipped [place] cream cheese (WM) 2 T 3g protein 2g carb Feta 4g protein AND 1.2g carb Mozzarella 6.3g protein AND 0.6g carb Parmesan 10g protein AND 0.9g carb Mongolian 7.6g protein AND 1.5g carb Cottage Cheese 1/2 c [place] 2% 13g protein 7g carb Kayleigh 2% 13g protein 5 g carb Good Culture 2% 14g protein 3g carb Lactaid 13g protein 5g carb Ma?s Low Fat 12g protein AND 4g carb Legumes Lentils ? cup 9g protein AND 20g carb Gleason beans ? cup 7g protein AND 20g carb Kidney, Black, [place], Cannellini beans ? cup 8g protein AND 20g carb Chickpeas 1/2 c 6g protein AND 15g carb Soybeans 1/2 c 14g complete protein AND 8.5g carb Bertrand milk, unsweetened 8 oz 1g protein AND 2g carb Soy milk 8 oz 3.5g protein AND 1.6g carb Tofu 1/2 cup 10g protein AND 2.3g carb Peanut butter, natural 2 Tbsp 7-8g protein AND 4g net carbs, 190 calories PB2 powder 2 Tbsp 6g protein AND 5g carb Nuts and Seeds per oz Almonds - 5.9g protein AND 6.1g carb Orange Nuts - 4.0g protein AND 3.4g carb Cashews - 5.1g protein AND 9.2g carb Hazelnuts - 4.2g protein AND 4.7g carb Hemp seeds/hearts 3 T/30 gms - 9.5 gm complete protein and 2.5 gm carb Peanuts - 7g protein AND 4.6g carb Pecans - 2.6g protein AND 3.9g carb Pistachios - 5.8g protein AND 7.8g carb Pumpkin Seeds - 6.9g protein AND 5g carb Butts Seeds - 5.8g protein AND 5.6g carb Walnuts - 4.3g protein AND 3.8g carb Edamame Beans (soybean) snack 1 pack 11 gm complete protein 2 carb 5 (FIVE) gram carb vegetable options 1 cup raw OR ? cup cooked: Asparagus Nicholson sprouts Beets Broccoli Brussel sprouts Cabbage Carrots Cauliflower Celery [place] Eggplant Green beans Lettuce Peppers Snap peas Spaghetti squash Spinach Tomato Turnips Zucchini 15 gram carb vegetable options ? cup cooked corn or hominy ? corn on the cob, large (5 oz) ? cup cooked green peas 4.3 gm complete protein ? cup cooked gleason beans 1 small potato or sweet potato ? cup cooked potato, plain ? cup cooked sweet potato, plain 1 cup winter squash (pumpkin, acorn, butternut) 1 cup marinara or pasta sauce - check label ? cup tomato juice ? cup tomato puree Beans, Seeds, Nuts ? cup cooked beans (kidney, valencia, red, green, etc.) ? cup cooked lentils ? cup baked beans 4 tablespoons nut butter <15 gram carb fruit options Berries have the lowest sugar content 1/2 medium apple - 12.5 carbs 1/2 medium avocado - 6.5 gm carbs 1/2 medium banana - 15 carbs 1/2 cup blueberries - 11 carbs - may actually help you lose weight 1/2 cup fresh cherries -11 carbs 1 medium Kerrie -9 carbs 1/2 cup fresh cranberries - 6.5 carbs 1/2 c grapes - 15 carbs 1/2 medium grapefruit - 10.5 carbs 1/2 cup diced honeydew melon - 8 carbs 1 medium kiwi without skin - 11 carbs 1/2 cup sliced melvina -14 carbs 1 medium nectarine - 15 carbs 1 medium orange -15.5 carbs 1 medium peach -14.5 carbs 1/2 cup fresh pineapple -11 carbs 1 medium plum -7.5 carbs 1 prune - 6 carbs 1/4 c raisins - 31.25 carbs 1/2 cup raspberries -7.5 carbs 1/2 c strawberries - 12.7 carbs 1 medium tangerine -12 carbs 1/2 cup diced watermelon - 6 carbs Grains Brown rice 1/2 c 5.5g protein 24 carb White long-grain rice 1/2 c 2g protein 22.5 carb Quinoa 1/2 c 4 gm complete protein 25 carb Oatmeal, old fashioned 1/2 c 5g protein 27g carb High Protein Snack Ideas 1. Jerky 2. [place] mix without dried fruit 3. [place] roll-ups 4. [place] yogurt 5. Veggies and yogurt dip 6. Tuna 7. Hard-boiled eggs 8. Peanut butter with celery 9. Cheese slices/ Cheese Stick 10. Handful of almonds, peanuts or walnuts 11. Cottage Cheese 12. Beef sticks 13. Protein bars 14. Canned [place] 15. Pumpkin seeds 16. Nut butter 17. Protein shake or protein bar 18. Avocado and chicken salad 19. Egg muffins 20. Leftover protein or lunch meat 21. 1/2 c blended cottage cheese or [place] yogurt with dry ranch/Mrs. Dash/herb seasoning mix to make protein dip- add raw veg 22. 1/2 c blended cottage cheese with 1 Tbsp sugar-free dry cheesecake pudding mix 12g protein 10 carb 23. Pudding - 1 30 gm protein shake with 1/2 pkg sugar-free pudding 4 svgs - 7.8 gm protein, 5 carb each svg 24. SF Sunkist or Root Beer with 1-2 Tablespoons heavy whipping cream 25. Mini frozen dessert bites - layer protein yogurt, skinny syrup and crushed nuts and freeze 26. Edamame Beans (soybean) snack 1 pack (O Beans) 11 gm complete protein 2 carb TOPIRAMATE -- Take 25mg at bedtime for 1-2 weeks -- Then increase to 50mg in the morning or 25 mg twice a day after the initial 1-2 weeks as long as you are not having bothersome side effects. -- You can take the tablet it at night at first (because of potential sleepiness side effects), but then you can take earlier around dinner after you have started the medication for a few days. You also may be able to take it in the morning if easier. -- We may increase the dose to 75mg a few weeks later if there is no change with 50mg, Typically the maximum medication dose would be 150mg daily but rarely would we need to titrate medication dose that high. -- The exact mechanism of topiramate on energy balance regulation is not clearly understood. Topiramate affects body mass index, fasting wmrpyma-wo-ekcerrv ratio, and serum leptin and cortisol levels. It has shown to improve hypothalamic insulin and leptin signaling and action and reduce obesity in mice. These changes may be benson factors in weight loss due to topiramate. If at any point you are feeling the effects of the medication you can stay at that dose or if you experience side effects you can decrease it to the previous dose. -- Please see the handout to review the potential side effects and to explain this further -- Please let me know if you experience any changes in your vision, worsening depression or mood problems, or an increase in suicidal thoughts or behaviors. --This medication should NOT be combined with alcohol. Risks of drinking alcohol while taking this medication include mental and psychological side effects, including confusion, dizziness, drowsiness, and depression. -- There is an increased risk for oral clefts when topiramate is used in the first trimester of . -- There is a possible decrease in contraceptive efficacy when using estrogen-containing control with topiramate, please use a back up form of control such as condoms and monitor for throughout treatment. -- If you decide that you would like to get or if you have any of these side effects please let me know and we can safely discontinue the medication. - If you are on loop diuretic or thiazide diuretic we will want to monitor your potassium level, especially if you have a history of low potassium. - It is important to taper off of this medication when we finished with treatment, typically decreasing the dose 25 mg a week. Stopping Topiramate abruptly can cause irritability, anxiety and difficulty concentrating. Topiramate (toe pyre? a mate) What are the common names? Topamax Why is this medication prescribed? Topiramate is an anti-epileptic medications which has been approved by the FDA for patients 10 years of age or older for treatment of seizures. However, topiramate also has other uses such as the treatment of migraines. It also causes decrease in appetite and weight loss. The mechanism of weight loss is thought to be through inhibition of mitochondrial enzymes involved in energy expenditure and metabolism. Topiramate may work by helping you feel less hungry, less ?driven? to eat, more satisfied with less food. What special precautions should I follow? Before having topiramate prescribed, tell your doctor and pharmacist: If you have allergies to any component of topiramate If you are , plan to become , are breast-feeding, or if you become while taking topiramate What are the warnings and precautions for this medication? Immediately discontinue the medicine and seek medical help if you have severe cognitive/neuropsychiatric adverse symptoms or eye symptoms. Cognitive/neuropsychiatric adverse events: symptoms may include confusion, psychomotor slowing, difficulty with concentration/attention, difficulty with memory, speech or language problems, particularily word-finding difficulties, somnolence or fatigue Acute myopia and secondary angle closure glaucoma, usually within 1 month of starting treatment: symptoms may include blurred vision, redness and/or pain in the eye Oligohydrosis (decrease sweating) and hyperthermia (elevation in body temperature) Increase in suicidal behavior or ideation Metabolic acidosis, non-gap hyperchloremic (decreased serum bicarbonate below normal levels) resulting in hyperventilation or fatigue Kidney stones Paresthesias (numbness or tingling in hands or feet) Ataxia Dizziness Increase in urination frequency Drug interactions. Use of monamine oxidase inhibitors (MAOI?s), valproic acid, Caution use with dehydration or diarrheal illness, hepatic or renal impairment In case of emergency/overdose In case of overdose, call your local poison control center at or call local emergency services at [phone]. What other information should I know? Keep all appointments with your doctor and the laboratory. Do not let anyone else take your medication. Topiramate use needs to be monitored closely. Prescriptions may be refilled only a limited number of times. Keep a written list of all of your prescription and nonprescription (jrtb-qpr-qjxsiie) medicines, in addition to vitamins, minerals, or other dietary supplements. How should I monitor while on this medication? Your doctor will check your baseline kidney function and electrolytes prior to starting this medication, then periodically. Continue to improve your dietary and physical activity habits as the combination works best while on this medication. Start out by taking the medication at bedtime as it can cause fatigue and sleepiness. Be sure to eat regular meals. Less hunger does not make it appropriate to skip meals. Make sure to have an eye exam, including the pressure in your eyes (intra-ocular pressure), once a year. What should I do if I forget a dose? Skip the missed dose and continue your regular dosing schedule the next day. Do not take a double dose to make up for a missed one. Sources Pubmed Health: http://www.ncbi.nlm.nih.gov/pubmedhealth/GJD2848654/ Drugs.com http://www.drugs.com/pro/topiramate.html TOPIRAMATE -- Take 25mg at bedtime for 1-2 weeks -- Then increase to 50mg in the morning or 25 mg twice a day after the initial 1-2 weeks as long as you are not having bothersome side effects. -- You can take the tablet it at night at first (because of potential sleepiness side effects), but then you can take earlier around dinner after you have started the medication for a few days. You also may be able to take it in the morning if easier. -- We may increase the dose to 75mg a few weeks later if there is no change with 50mg, Typically the maximum medication dose would be 150mg daily but rarely would we need to titrate medication dose that high. -- The exact mechanism of topiramate on energy balance regulation is not clearly understood. Topiramate affects body mass index, fasting kehamnr-zl-gdakkce ratio, and serum leptin and cortisol levels. It has shown to improve hypothalamic insulin and leptin signaling and action and reduce obesity in mice. These changes may be benson factors in weight loss due to topiramate. If at any point you are feeling the effects of the medication you can stay at that dose or if you experience side effects you can decrease it to the previous dose. -- Please see the handout to review the potential side effects and to explain this further -- Please let me know if you experience any changes in your vision, worsening depression or mood problems, or an increase in suicidal thoughts or behaviors. --This medication should NOT be combined with alcohol. Risks of drinking alcohol while taking this medication include mental and psychological side effects, including confusion, dizziness, drowsiness, and depression. -- There is an increased risk for oral clefts when topiramate is used in the first trimester of . -- There is a possible decrease in contraceptive efficacy when using estrogen-containing control with topiramate, please use a back up form of control such as condoms and monitor for throughout treatment. -- If you decide that you would like to get or if you have any of these side effects please let me know and we can safely discontinue the medication. - If you are on loop diuretic or thiazide diuretic we will want to monitor your potassium level, especially if you have a history of low potassium. - It is important to taper off of this medication when we finished with treatment, typically decreasing the dose 25 mg a week. Stopping Topiramate abruptly can cause irritability, anxiety and difficulty concentrating. Topiramate (toe pyre? a mate) What are the common names? Topamax Why is this medication prescribed? Topiramate is an anti-epileptic medications which has been approved by the FDA for patients 10 years of age or older for treatment of seizures. However, topiramate also has other uses such as the treatment of migraines. It also causes decrease in appetite and weight loss. The mechanism of weight loss is thought to be through inhibition of mitochondrial enzymes involved in energy expenditure and metabolism. Topiramate may work by helping you feel less hungry, less ?driven? to eat, more satisfied with less food. What special precautions should I follow? Before having topiramate prescribed, tell your doctor and pharmacist: If you have allergies to any component of topiramate If you are , plan to become , are breast-feeding, or if you become while taking topiramate What are the warnings and precautions for this medication? Immediately discontinue the medicine and seek medical help if you have severe cognitive/neuropsychiatric adverse symptoms or eye symptoms. Cognitive/neuropsychiatric adverse events: symptoms may include confusion, psychomotor slowing, difficulty with concentration/attention, difficulty with memory, speech or language problems, particularily word-finding difficulties, somnolence or fatigue Acute myopia and secondary angle closure glaucoma, usually within 1 month of starting treatment: symptoms may include blurred vision, redness and/or pain in the eye Oligohydrosis (decrease sweating) and hyperthermia (elevation in body temperature) Increase in suicidal behavior or ideation Metabolic acidosis, non-gap hyperchloremic (decreased serum bicarbonate below normal levels) resulting in hyperventilation or fatigue Kidney stones Paresthesias (numbness or tingling in hands or feet) Ataxia Dizziness Increase in urination frequency Drug interactions. Use of monamine oxidase inhibitors (MAOI?s), valproic acid, Caution use with dehydration or diarrheal illness, hepatic or renal impairment In case of emergency/overdose In case of overdose, call your local poison control center at or call local emergency services at [phone]. What other information should I know? Keep all appointments with your doctor and the laboratory. Do not let anyone else take your medication. Topiramate use needs to be monitored closely. Prescriptions may be refilled only a limited number of times. Keep a written list of all of your prescription and nonprescription (rdbk-cso-zpyiods) medicines, in addition to vitamins, minerals, or other dietary supplements. How should I monitor while on this medication? Your doctor will check your baseline kidney function and electrolytes prior to starting this medication, then periodically. Continue to improve your dietary and physical activity habits as the combination works best while on this medication. Start out by taking the medication at bedtime as it can cause fatigue and sleepiness. Be sure to eat regular meals. Less hunger does not make it appropriate to skip meals. Make sure to have an eye exam, including the pressure in your eyes (intra-ocular pressure), once a year. What should I do if I forget a dose? Skip the missed dose and continue your regular dosing schedule the next day. Do not take a double dose to make up for a missed one. Sources Pubmed Health: http://www.ncbi.nlm.nih.gov/pubmedhealth/DQT7969923/ Drugs.com http://www.drugs.com/pro/topiramate.html Why Is Protein So Important for Weight loss? consuming more protein not only reduces body weight but enhances body composition by decreasing fat mass while preserving fat-free mass During weight loss phase protein consumption (with normal kidney function) should be 1-1.6g protein per Kilogram of body weight (1kg=2.2lbs) On average Women need to Aim for a minimum 90g protein per day Consuming higher protein can also prevent weight regain after weight loss Protein consumption increases hormones responsible for satiety (feeling full)- these include Gut hormones like Glucagon-like peptide-1 (GLP-1), Cholecystokinin (CCK), Peptide Tyrosine-Tyrosine (PYY) and decreasing the Gut hormone responsible for causing hunger Ghrelin Protein has an increased thermogenesis effect of food- which means it take more calories to break down protein when consumed compared to carbohydrates or fats Protein also prevents a losing lean mass during weight loss (lose more fat and preserve fat free mass) which helps to increase resting energy expenditure (resting metabolic rate) Every pound of muscle boojrquez ~ 6 kcal per pound/day vs fat bojorquez ~ 2kcal per pound/day Carbohydrates - Why do You Crave Them? Eating too many refined carbohyrdates (sugar beverages, pastries, bread, pizza) which raises your blood glucose levels and therefore releasing insulin which in turn causes increase in hunger Carbohydrates suppress Ghrelin quickly but does not maintain the suppression for very long therefore hunger returns more quickly Consuming carbohydrates leads to a release of Dopamine ?feel good hormone? in our brain So how do you Curb these cravings? Eating Whole Foods with more fiber - High fiber carbs are absorbed and digested slowly so it does not impact blood sugar levels as much and will help in making you feel kaufman for longer; fiber also is healthy for your gut bacteria and can help with constipation. Remember- carbohydrates are not the enemy but know what a proper serving size is, choose nutritious carbohydrates and space them out between meals. Always- eat your protein first followed by your non starchy vegetables followed by your carbohydrates- it will help your body with your glucose and insulin regulation Processed Foods vs Whole Foods- Impact on Weight: People who eat Ultra Processed food tend to consume about 500 calories more per day Ultra Processed foods are considered ?Calorie Dense? so when a person feels full they have typically already over eaten and consumed more calories Whole Foods (unprocessed foods) tend to be more more filling and more Nutrient Dense Unprocessed foods can be more expensive and not realistic for everyone however when you have the choice to consume unprocessed vs Ultra processed foods always pick unprocessed. Why can't people stop eating Ultra Processed foods? They are economical and optimized for taste by food Mendix - they are designed to make you want to keep eating them- they feed common cravings and bypass the mechanisms that tell your brain you are full Benefits of eating Whole Foods and cutting out Ultra Processed Foods Increased concentration and focus (decreased brain fog), improved mood, better sleep, Decrease in fatigue, improvement in gut health, decreased inflammation, Likely WEIGHT LOSS Jaclyn Barber, [email or web address] 01/10/2025 9:58 AM Signed Some documentation from previous visit of 11/29/2024 was copied and pasted, documentation has been reviewed and edited as necessary for today's visit. Patient Summary: Forest is a 39 year old Female who presents for follow-up evaluation of obesity/weight management to treat and prevent related co-morbidities. In our previous visits we have discussed lifestyle intervention including a nutrition recommendations and physical activity optimization. Her last office visit was 6 weeks ago. Assessment/plan from last visit: Metformin ER 500 twice a day 0730 and with dinner - 1 gm twice a day with lunch and dinner Interval History PT specifies the following items as new or significant updates since the last appointment: More hungry. Consistent with protein shake in the morning during the week but adding avocado toast on the WE has added morning and afternoon snacks Weight loss since last vist: +4 lb Date Weight BMI AOM 01/10/2025 177 lb 35.68 topiramate 25 mg BID 11/29/2024 173 lb 34.88 10/31/2024 174 lb 35.08 Metformin ER 1 gm bid 10/02/2024 170 lb 34.27 Metformin ER 500 mg bid WC 43.5 NC 14.5 5% weight loss = 167 lbs, 10% weight loss = 158 lbs Anti-obesity medications: Metformin. Benefit:less hunger later in the day and more fullness Adverse effects: diarrhea 4-5 times a week - Immodium helps Weight promoting medications: none Previous Diet (initial appointment): Diet/Nutrition overview: Awake - 0700 3 days a week - sips large coffee mint mocha mix from 0830 -3 B - SKIP/WE 50% of the time - eggs and toast S - none L - SKIP/ WE if did not eat bkft [employer] RB sandwich with sauce or leftovers S - none D - 7-8 pm lasagne or tacos or sausage rice casserole or teriyaki chicken and rice or grilled meat/baked potato with tea with SF drink mixes. eats out 3-4 times a week Chipot[employer] - Steak, white rice, black beans, s cream, cheese, corn tomatoes, chips, sweet tea [employer] - 6 in wheat Nauruan parra ve sweet tea [employer]ob[employer] - shrimp scampi, 2 biscuits, occas Anshul salad, sweet tea [employer] [place] - chicken fingers, fries or smothered grilled chicken and cottage cheese with sweet tea S - none Fluids: sweet tea and tea with SF mixes, 3 days a week - sips large coffee mint mocha mix from 0830 -3, no water Bedtime - midnight Quality of diet: 24hr recall suggests somewhat unhealthy diet. Characterization of diet:Structured, increased consumption of sugar sweetened beverages, and skip meals. Supervisor Winter of impaired eating habits:emotion and stress causes her to eat out instead of planning healthy meals and food prepping. Not hungry, gets full easily, stays full for up to 6 hours. Eating Disorder no Cravings: salty, crunchy Dietary changes: Balanced B - 0730 30 gm premier protein shake / WE adding avocado toast S - 1030 Two Good yogurt L - 1230 Chicken salad 10 g protein with 6 wheat crackers OR ham/cheese with hummus with césar chips S - 3 pm Chomp D - [id number] Chipotle - Chicken, white rice, black beans, s cream, cheese, corn tomatoes - with double protein or 1/2 beans and 1/2 beans OR 4 BBQ chicken wings and shrimp scampi asparagus or b potato OR burirra tacos pulled been on 2 corn tortillas with side of rice S - none Fluids - water Current Barriers: food cravings - sweet in the afternoon, grazing/irregular meal patterns, and excessive hunger/lack of satiety signals, busy schedule Exercise: Yes - intentionally walking after lunch Regular exercise: no Strength/resistance exercise:no Barriers to regular exercise? no Work-related activity:Sedentary. 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 Sleep: stable 6-7 hours. CrCl cannot be calculated (Unknown ideal weight.). 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 360 tablet 1 ketoconazole (NIZORAL) 2 % shampoo WASH THE SCALP ONCE EVERY OTHER WASH, LETTING IT LATHER FOR 3-5 MINUTES BEFORE RINSING amLODIPine (NORVASC) 10 mg tablet Take 1 tablet by mouth once daily. 90 tablet 1 labetalol (TRANDATE) 200 mg tablet Take 1 tablet by mouth three times daily. 90 tablet 1 omeprazole (PRILOSEC) 40 mg capsule Take 1 capsule by mouth twice daily before meals. 180 capsule 1 No current facility-administered medications for this visit. 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 Physical Exam Constitutional: She appears healthy. No distress. Results: recent labs reviewed with the patient. Latest Ref Rng AND Units 10/02/2024 CMP Sodium 136 - 144 mmol/L 137 Potassium 3.7 - 5.1 mmol/L 3.8 Chloride 98 - 107 mmol/L 104 CO2 22 - 30 mmol/L 21 Glucose 74 - 99 mg/dL 97 BUN 7 - 21 mg/dL 15 Creatinine 0.58 - 0.96 mg/dL 0.59 EGFR >=60 mL/min/1.73m? 119 Protein, Total 6.3 - 8.0 g/dL 7.6 Albumin 3.9 - 4.9 g/dL 4.6 Calcium 8.5 - 10.2 mg/dL 9.7 Bilirubin, Total 0.2 - 1.3 mg/dL 0.2 AST 13 - 35 U/L 19 ALT 7 - 38 U/L 26 Alkaline Phosphatase 34 - 123 U/L 74 Cholesterol, Total (mg/dL) Date Value 10/02/2024 189 06/08/2019 187 HDL Cholesterol (mg/dL) Date Value 10/02/2024 50 06/08/2019 71 LDL Cholesterol, Calculated (mg/dL) Date Value 10/02/2024 91 06/08/2019 100 Triglyceride (mg/dL) Date Value 10/02/2024 238 06/08/2019 81 Latest Ref Rng AND Units 10/02/2024 CBC WBC 3.70 - 11.00 k/uL 7.44 RBC 3.90 - 5.20 m/uL 5.49 Hemoglobin 11.5 - 15.5 g/dL 13.1 Hematocrit 36.0 - 46.0 % 40.1 MCV 80.0 - 100.0 fL 73.0 MCH 26.0 - 34.0 pg 23.9 MCHC 30.5 - 36.0 g/dL 32.7 RDW-CV 11.5 - 15.0 % 14.9 Platelet Count 150 - 400 k/uL 266 MPV 9.0 - 12.7 fL 10.1 Vitamin D 25 Hydroxy Date Value Ref Range Status 10/10/2023 29.2 (L) 31.0 - 80.0 ng/mL Final 08/28/2018 39.1 31.0 - 80.0 ng/mL Final Comment: Classification of 25 OH Vitamin D status: Insufficiency/Moderate Deficiency: < or = 30 ng/mL Sufficiency/Optimal Levels: 31 to 80 ng/mL Toxicity: > 100 ng/mL Test performed by chemiluminescent immunoassay. TSH Date Value 10/10/2023 2.140 mIU/L 01/06/2023 1.960 mIU/L 09/08/2021 1.910 uU/mL 08/28/2018 1.810 uU/mL Hemoglobin A1C (%) Date Value 10/02/2024 4.7 01/06/2023 5.0 08/28/2018 5.1 04/20/2017 5.2 Insulin, Total 10/02/2024 Ref range 2.6 - 24.9 uU/mL Value 78.7 High Anti-Obesity Medications >Phentermine: No uncontrolled HTN, No CVD Hx or hx of seizure disorder. No MAOI inhibitor use. No drug abuse hx. Crcl > 15. >Topiramate/zonisamide: No seizure or glaucoma hx. No hx of migraines, or hx of poor sleep. Is of Child bearing age - male infertility. Per patient -1 kidney stone in 2022 with no other kidney stones noted on CT >Qsymia: see above >Contrave: No uncontrolled HTN or hx of seizure disorder. No MAOI inhibitor use. No opiate use. >Saxenda/Wegovy/Ozempic: Cost. Ins coverage? >Metformin: eGFR > 30. No contraindications or medication interactions. Assessment/Plan: Forest Ovalle is a 39 year old yo with Class II obesity who presented today for follow up for supervised weight loss to treat and prevent related co-morbidities. 1. Hypertension, essential - ICD9: 401.9, ICD10: I10 (primary diagnosis) - treated with labetalol and amlodipine - Whole food balanced protein low-carb nutrition 2. GERD without esophagitis - ICD9: 530.81, ICD10: K21.9 - Discussed lifestyle modifications including losing weight, limiting caffeine, no meals three hours before sleep, and head of bed elevation - Omeprazole 40 mg - Whole food balanced protein low-carb nutrition 3. Hyperinsulinemia - ICD9: 251.1, ICD10: E16.1 - METFORMIN ER 500 MG TABLET,EXTENDED RELEASE 24 HR 4. Metabolic syndrome - ICD9: 277.7, ICD10: E88.810 - METFORMIN ER 500 MG TABLET,EXTENDED RELEASE 24 HR 5. Nonalcoholic fatty liver disease - ICD9: 571.8, ICD10: K76.0 - Whole food balanced protein low-carb nutrition 6. Class 1 obesity with serious comorbidity and body mass index (BMI) of 34.0 to 34.9 in adult, unspecified obesity type - ICD9: 278.00, V85.34, ICD10: E66.811, Z68.34 Weight increased - METFORMIN ER 500 MG TABLET,EXTENDED RELEASE 24 HR -1 g twice a day with meals - TOPIRAMATE 25 MG TABLET Topiramate. Discussed risks/benefits with the patient. Patient aware that this is an off-label use of the medication. Begin with 25 mg at bedtime and will increase to 2 tablets as tolerated. Will notify me if experiencing any adverse effects. Denies history of seizures or glaucoma. No official dx of hx of migraines but does get headaches, no history of poor sleep. Advised not to mix with alcohol. Educated on increased risk for drowsiness, dizziness, fatigue, kidney stones, osteoporosis and increased eye pressure. Per patient -1 kidney stone in 2022 with no other kidney stones noted on CT -lengthy discussion regarding increased risk of another kidney stone and she voiced understanding and would like to begin topiramate. We discussed adding lemon/real lemon to water. Patient of childbearing age. Discussed the risk of defects with topiramate and the need for double control methods as well as regular tests. Contraception: male infertility -Reviewed whole food balanced protein, controlled carbohydrate nutrition plan. Encouraged her to use online resources and read nutrition labels and make sure to eat at least 30 g of protein per meal with fewer than 30 g of carbohydrates. Given information about apps to use. Given information about high-protein bars to supplement protein when needed. - Given protein, whole food and high protein nutrition lists. - Given information on protein, carbs and processed versus Whole Foods - Encouraged the patient to improve her physical activity. Although cardiovascular exercise is most beneficial for weight loss initially, we discussed healthy muscle from a combination of resistance training and cardiovascular exercise is the best assistant terminal manager plan. An overall goal of 150-200 minutes per week of exercise has been effective in weight loss and maintenance. Prescription instructions reviewed with patient as applicable. Potential red flag symptoms discussed with the patient. Reviewed appropriate action plan to take if red flag symptoms occur. Patient agreeable to treatment plan. Follow up in 3 months Jaclyn Barber CNP Advanced Education from the [employer] Medical Decision Making: Problems: Moderate: 1+ chronic illnesses with change and 2+ stable chronic illnesses Risk: Moderate: Drug management and Moderate risk from testing/treatment Medical Decision Making Level: 4 - Moderate Allergies As of Date: 01/10/2025 (No Known Allergies) Date Reviewed: 01/10/2025 Reviewed by: Jaclyn Barber APRN.RUBINA - Fully Assessed Reason for Visit: Weight Management [3933] Primary Visit Diagnosis:Hypertension, essential [I10] Other Visit Diagnoses:GERD without esophagitis [K21.9] Hyperinsulinemia [E16.1] Metabolic syndrome [E88.810] Nonalcoholic fatty liver disease [K76.0] Class 1 obesity with serious comorbidity and body mass index (BMI) of 34.0 to 34.9 in adult, unspecified obesity type [E66.811, Z68.34] Order(s):topiramate (TOPAMAX) 25 mg tabletTake 1 tablet by mouth two times a day.Disp: 180 tabletRfl: 0 Prescriptions as of 01/10/2025 - topiramate (TOPAMAX) 25 mg tablet Take 1 tablet by mouth two times a day. - metFORMIN ER (GLUCOPHAGE XR) 500 mg 24 hr tablet Take 2 tablets by mouth two times a day with meals. - ketoconazole (NIZORAL) 2 % shampoo WASH THE SCALP ONCE EVERY OTHER WASH, LETTING IT LATHER FOR 3-5 MINUTES BEFORE RINSING - amLODIPine (NORVASC) 10 mg tablet Take 1 tablet by mouth once daily. - labetalol (TRANDATE) 200 mg tablet Take 1 tablet by mouth three times daily. - omeprazole (PRILOSEC) 40 mg capsule Take 1 capsule by mouth twice daily before meals. Problem List As Of Date 01/10/2025 Noted Resolved Encounter for in vitro fertilization [Z31.83] 02/04/2017 04/04/2019 Hypertension, essential [I10] 10/20/2017 resulting from assisted reproductive *08/31/2018 04/04/2019 Pre-existing essential hypertension complicatin*08/31/2018 04/04/2019 Family history of congenital heart defect [Z82.*08/31/2018 04/04/2019 Positive GBS test [B95.1] 03/02/2019 04/04/2019 GERD without esophagitis [K21.9] 12/25/2021 Fatigue [R53.83] 09/10/2022 Nonalcoholic fatty liver disease [K76.0] 10/23/2022 Gastroparesis [K31.84] 10/23/2022 Gastric antral vascular ectasia [K31.819] 09/23/2022 Class 1 obesity with serious comorbidity and linsey*10/02/2024 Hyperinsulinemia [E16.1] 10/30/2024 Metabolic syndrome [E88.810] 10/31/2024 Other instructions from your clinician: Venkata protein bar - 28g protein 3 net carb 150 maude Quest 20-21 prot IQ bars 12 g prot 170 maude Real lemon or lemon in water - topiramate and hx of kidney stone - Whole food balanced protein, controlled carbohydrate nutrition plan - 30 g of protein 3 times a day and up to 30 g of carbs at lunch and dinner only. 1st meal of the day- 30g protein with limit of 2 gm carbohydrates. Premier Protein or generic 30 gm protein 1 gm sugar 2. 2-3 eggs and some unbreaded meat and/or cheese. 3. 2-3 eggs and 1/2 of protein shake or one of the yogurts below: :ratio, KETO Friendly Dairy Snack 1 single svg - 15g protein AND 2g carb Two Good Lowfat [place] Yogurt, Lower Sugar - 12g protein AND 2g carb No fruit, vegetables, bread, grain, other brands of yogurt, Smoothies, etc. Lunch and dinner - 30 gm protein is the goal with less than 30 gm carbohydrates All snacks and meals - all protein or more protein than carbs Protein - no carbs Egg 1 large - 6g Egg white 1 large 3.6g 3 oz is approximately the size of a deck of cards and equals 21 g protein so 4 oz is 28 gm protein Beef, Chicken, [place], Pork, Duran 1 oz 7g Fish, Tuna Fish 1 oz 7g (Starkist tuna packet 2.6 oz 17 gm protein) Seafood (Crabmeat, Shrimp, Lobster) 1 oz 6g Protein shakes (read labels) Premier Protein or generic [employer] Equate, Meijer High Performance- 30g protein AND 1g carb - meal replacement Premier Protein powder or generic- 30 g protein, 1g carb Fairlife 30 gram protein - 30g protein AND 3g carb BOOST Glucose Control Max 30g Protein Nutritional Drink - 30g protein AND 1 carb - meal replacement Slimfast High Protein - 20g protein AND 1g carb Ensure Max Protein Nutrition Shake 30g protein AND 2 carb OWYN plant based 100 % vegan no dairy, soy, wheat/gluten 32g protein 0 net carb (not a meal replacement) Premier Protein plant protein powder - 25g protein, 0 sugar/2g carb Vanilla and chocolate (not a meal replacement) Protein AND carbs Beef/[place] Jerky 1 oz dried 10-15g protein - check carb count, can be high if sugar added Slim Jerardo - 6 gm protein and 4 net carb Great Value original turkey sausage sticks - 7 gm protein and 2 gm carb Belinda (at [facility]) Original smoked sausage sticks - 8 gm protein and 0 carb Imitation Crab Meat 1 oz - 2g protein AND 4g carb Milk, skim 2% or 1% 8 oz - 8g protein AND 12g carb Fairlife 2% milk 8 oz -13g protein AND 6g car [place] yogurt Full Fat [place] Yogurt 1 cup - 20.4g protein AND 9.1g carb 2% [place] Yogurt 1 cup - 22.7g protein AND 9.1g carb 0% (fat-free) [place] Yogurt - 1 cup 24g protein AND 9.3g carb Aldi Protein [place] yogurt single svg - 13/g15g protein AND 7g carb Chobani Zero Sugar single svg: - 12g protein AND 5g carb Dannon [place] Light + Fit 1 single svg - 12g protein AND 9g carb Oikos Pro single svg - 20g protein AND 8g carb Oikos Triple Zero [place] Nonfat Yogurt 1 single svg - 15g protein AND 7g carb :ratio, KETO Friendly Dairy Snack 1 single svg - 15g protein AND 2g carb :ratio Protein 1 single svg - 25g protein AND 8g carb Two Good Lowfat [place] Yogurt, [place], Lower Sugar - 12g protein AND 2g carb Yoplait Protein 1 single svg 15g protein AND 5g carb Dairy Free - [place] unsweetened [place] almond/soy 15g protein AND 3g carb Dairy Free - True Goodness by [facility] coconut-based yogurt alternative 1 g protein 1 g net carb 180 maude Drinkable yogurts: Chobani drinkable 15g, 20g and 30g protein AND 18 carb (too many carbs for breakfast) Chobani Zero Sugar 10g protein 6g carbs 50 calories Oikos Pro drinkable yogurt 1 single svg - 23g protein AND 8g carb :ratio Protein 26g protein 9g carb Cheese each oz Brie 5.9g protein AND 0.1g carb Cheddar 7g protein AND 0.4g carb Rishi 6.7g protein AND 0.7g carb Cream Cheese 1.7g protein AND 1.2g carb [place] Far[employer] whipped [place] cream cheese (WM) 2 T 3g protein 2g carb Feta 4g protein AND 1.2g carb Mozzarella 6.3g protein AND 0.6g carb Parmesan 10g protein AND 0.9g carb Mongolian 7.6g protein AND 1.5g carb Cottage Cheese 1/2 c Breakstone 2% 13g protein 7g carb Kayleigh 2% 13g protein 5 g carb Good Culture 2% 14g protein 3g carb Lactaid 13g protein 5g carb Ma?s Low Fat 12g protein AND 4g carb Legumes Lentils ? cup 9g protein AND 20g carb Gleason beans ? cup 7g protein AND 20g carb Kidney, Black, [place], Cannellini beans ? cup 8g protein AND 20g carb Chickpeas 1/2 c 6g protein AND 15g carb Soybeans 1/2 c 14g complete protein AND 8.5g carb Bertrand milk, unsweetened 8 oz 1g protein AND 2g carb Soy milk 8 oz 3.5g protein AND 1.6g carb Tofu 1/2 cup 10g protein AND 2.3g carb Peanut butter, natural 2 Tbsp 7-8g protein AND 4g net carbs, 190 calories PB2 powder 2 Tbsp 6g protein AND 5g carb Nuts and Seeds per oz Almonds - 5.9g protein AND 6.1g carb Orange Nuts - 4.0g protein AND 3.4g carb Cashews - 5.1g protein AND 9.2g carb Hazelnuts - 4.2g protein AND 4.7g carb Hemp seeds/hearts 3 T/30 gms - 9.5 gm complete protein and 2.5 gm carb Peanuts - 7g protein AND 4.6g carb Pecans - 2.6g protein AND 3.9g carb Pistachios - 5.8g protein AND 7.8g carb Pumpkin Seeds - 6.9g protein AND 5g carb Butts Seeds - 5.8g protein AND 5.6g carb Walnuts - 4.3g protein AND 3.8g carb Edamame Beans (soybean) snack 1 pack 11 gm complete protein 2 carb 5 (FIVE) gram carb vegetable options 1 cup raw OR ? cup cooked: Asparagus Nicholson sprouts Beets Broccoli Brussel sprouts Cabbage Carrots Cauliflower Celery [place] Eggplant Green beans Lettuce Peppers Snap peas Spaghetti squash Spinach Tomato Turnips Zucchini 15 gram carb vegetable options ? cup cooked corn or hominy ? corn on the cob, large (5 oz) ? cup cooked green peas 4.3 gm complete protein ? cup cooked gleason beans 1 small potato or sweet potato ? cup cooked potato, plain ? cup cooked sweet potato, plain 1 cup winter squash (pumpkin, acorn, butternut) 1 cup marinara or pasta sauce - check label ? cup tomato juice ? cup tomato puree Beans, Seeds, Nuts ? cup cooked beans (kidney, valencia, red, green, etc.) ? cup cooked lentils ? cup baked beans 4 tablespoons nut butter <15 gram carb fruit options Berries have the lowest sugar content 1/2 medium apple - 12.5 carbs 1/2 medium avocado - 6.5 gm carbs 1/2 medium banana - 15 carbs 1/2 cup blueberries - 11 carbs - may actually help you lose weight 1/2 cup fresh cherries -11 carbs 1 medium Kerrie -9 carbs 1/2 cup fresh cranberries - 6.5 carbs 1/2 c grapes - 15 carbs 1/2 medium grapefruit - 10.5 carbs 1/2 cup diced honeydew melon - 8 carbs 1 medium kiwi without skin - 11 carbs 1/2 cup sliced melvina -14 carbs 1 medium nectarine - 15 carbs 1 medium orange -15.5 carbs 1 medium peach -14.5 carbs 1/2 cup fresh pineapple -11 carbs 1 medium plum -7.5 carbs 1 prune - 6 carbs 1/4 c raisins - 31.25 carbs 1/2 cup raspberries -7.5 carbs 1/2 c strawberries - 12.7 carbs 1 medium tangerine -12 carbs 1/2 cup diced watermelon - 6 carbs Grains Brown rice 1/2 c 5.5g protein 24 carb White long-grain rice 1/2 c 2g protein 22.5 carb Quinoa 1/2 c 4 gm complete protein 25 carb Oatmeal, old fashioned 1/2 c 5g protein 27g carb High Protein Snack Ideas 1. Jerky 2. [place] mix without dried fruit 3. [place] roll-ups 4. [place] yogurt 5. Veggies and yogurt dip 6. Tuna 7. Hard-boiled eggs 8. Peanut butter with celery 9. Cheese slices/ Cheese Stick 10. Handful of almonds, peanuts or walnuts 11. Cottage Cheese 12. Beef sticks 13. Protein bars 14. Canned [place] 15. Pumpkin seeds 16. Nut butter 17. Protein shake or protein bar 18. Avocado and chicken salad 19. Egg muffins 20. Leftover protein or lunch meat 21. 1/2 c blended cottage cheese or [place] yogurt with dry ranch/Mrs. Dash/herb seasoning mix to make protein dip- add raw veg 22. 1/2 c blended cottage cheese with 1 Tbsp sugar-free dry cheesecake pudding mix 12g protein 10 carb 23. Pudding - 1 30 gm protein shake with 1/2 pkg sugar-free pudding 4 svgs - 7.8 gm protein, 5 carb each svg 24. SF Sunkist or Root Beer with 1-2 Tablespoons heavy whipping cream 25. Mini frozen dessert bites - layer protein yogurt, skinny syrup and crushed nuts and freeze 26. Edamame Beans (soybean) snack 1 pack (O Beans) 11 gm complete protein 2 carb TOPIRAMATE -- Take 25mg at bedtime for 1-2 weeks -- Then increase to 50mg in the morning or 25 mg twice a day after the initial 1-2 weeks as long as you are not having bothersome side effects. -- You can take the tablet it at night at first (because of potential sleepiness side effects), but then you can take earlier around dinner after you have started the medication for a few days. You also may be able to take it in the morning if easier. -- We may increase the dose to 75mg a few weeks later if there is no change with 50mg, Typically the maximum medication dose would be 150mg daily but rarely would we need to titrate medication dose that high. -- The exact mechanism of topiramate on energy balance regulation is not clearly understood. Topiramate affects body mass index, fasting scowddg-qc-rtfevuy ratio, and serum leptin and cortisol levels. It has shown to improve hypothalamic insulin and leptin signaling and action and reduce obesity in mice. These changes may be benson factors in weight loss due to topiramate. If at any point you are feeling the effects of the medication you can stay at that dose or if you experience side effects you can decrease it to the previous dose. -- Please see the handout to review the potential side effects and to explain this further -- Please let me know if you experience any changes in your vision, worsening depression or mood problems, or an increase in suicidal thoughts or behaviors. --This medication should NOT be combined with alcohol. Risks of drinking alcohol while taking this medication include mental and psychological side effects, including confusion, dizziness, drowsiness, and depression. -- There is an increased risk for oral clefts when topiramate is used in the first trimester of . -- There is a possible decrease in contraceptive efficacy when using estrogen-containing control with topiramate, please use a back up form of control such as condoms and monitor for throughout treatment. -- If you decide that you would like to get or if you have any of these side effects please let me know and we can safely discontinue the medication. - If you are on loop diuretic or thiazide diuretic we will want to monitor your potassium level, especially if you have a history of low potassium. - It is important to taper off of this medication when we finished with treatment, typically decreasing the dose 25 mg a week. Stopping Topiramate abruptly can cause irritability, anxiety and difficulty concentrating. Topiramate (toe pyre? a mate) What are the common names? Topamax Why is this medication prescribed? Topiramate is an anti-epileptic medications which has been approved by the FDA for patients 10 years of age or older for treatment of seizures. However, topiramate also has other uses such as the treatment of migraines. It also causes decrease in appetite and weight loss. The mechanism of weight loss is thought to be through inhibition of mitochondrial enzymes involved in energy expenditure and metabolism. Topiramate may work by helping you feel less hungry, less ?driven? to eat, more satisfied with less food. What special precautions should I follow? Before having topiramate prescribed, tell your doctor and pharmacist: If you have allergies to any component of topiramate If you are , plan to become , are breast-feeding, or if you become while taking topiramate What are the warnings and precautions for this medication? Immediately discontinue the medicine and seek medical help if you have severe cognitive/neuropsychiatric adverse symptoms or eye symptoms. Cognitive/neuropsychiatric adverse events: symptoms may include confusion, psychomotor slowing, difficulty with concentration/attention, difficulty with memory, speech or language problems, particularily word-finding difficulties, somnolence or fatigue Acute myopia and secondary angle closure glaucoma, usually within 1 month of starting treatment: symptoms may include blurred vision, redness and/or pain in the eye Oligohydrosis (decrease sweating) and hyperthermia (elevation in body temperature) Increase in suicidal behavior or ideation Metabolic acidosis, non-gap hyperchloremic (decreased serum bicarbonate below normal levels) resulting in hyperventilation or fatigue Kidney stones Paresthesias (numbness or tingling in hands or feet) Ataxia Dizziness Increase in urination frequency Drug interactions. Use of monamine oxidase inhibitors (MAOI?s), valproic acid, Caution use with dehydration or diarrheal illness, hepatic or renal impairment In case of emergency/overdose In case of overdose, call your local poison control center at or call local emergency services at [phone]. What other information should I know? Keep all appointments with your doctor and the laboratory. Do not let anyone else take your medication. Topiramate use needs to be monitored closely. Prescriptions may be refilled only a limited number of times. Keep a written list of all of your prescription and nonprescription (hdqh-fxv-qzdsvzi) medicines, in addition to vitamins, minerals, or other dietary supplements. How should I monitor while on this medication? Your doctor will check your baseline kidney function and electrolytes prior to starting this medication, then periodically. Continue to improve your dietary and physical activity habits as the combination works best while on this medication. Start out by taking the medication at bedtime as it can cause fatigue and sleepiness. Be sure to eat regular meals. Less hunger does not make it appropriate to skip meals. Make sure to have an eye exam, including the pressure in your eyes (intra-ocular pressure), once a year. What should I do if I forget a dose? Skip the missed dose and continue your regular dosing schedule the next day. Do not take a double dose to make up for a missed one. Sources [employer]: http://www.ncbi.nlm.nih.gov/pubmedhealth/MJZ4935304/ Drugs.com http://www.drugs.com/pro/topiramate.html TOPIRAMATE -- Take 25mg at bedtime for 1-2 weeks -- Then increase to 50mg in the morning or 25 mg twice a day after the initial 1-2 weeks as long as you are not having bothersome side effects. -- You can take the tablet it at night at first (because of potential sleepiness side effects), but then you can take earlier around dinner after you have started the medication for a few days. You also may be able to take it in the morning if easier. -- We may increase the dose to 75mg a few weeks later if there is no change with 50mg, Typically the maximum medication dose would be 150mg daily but rarely would we need to titrate medication dose that high. -- The exact mechanism of topiramate on energy balance regulation is not clearly understood. Topiramate affects body mass index, fasting kxymyuk-mt-czjztil ratio, and serum leptin and cortisol levels. It has shown to improve hypothalamic insulin and leptin signaling and action and reduce obesity in mice. These changes may be benson factors in weight loss due to topiramate. If at any point you are feeling the effects of the medication you can stay at that dose or if you experience side effects you can decrease it to the previous dose. -- Please see the handout to review the potential side effects and to explain this further -- Please let me know if you experience any changes in your vision, worsening depression or mood problems, or an increase in suicidal thoughts or behaviors. --This medication should NOT be combined with alcohol. Risks of drinking alcohol while taking this medication include mental and psychological side effects, including confusion, dizziness, drowsiness, and depression. -- There is an increased risk for oral clefts when topiramate is used in the first trimester of . -- There is a possible decrease in contraceptive efficacy when using estrogen-containing control with topiramate, please use a back up form of control such as condoms and monitor for throughout treatment. -- If you decide that you would like to get or if you have any of these side effects please let me know and we can safely discontinue the medication. - If you are on loop diuretic or thiazide diuretic we will want to monitor your potassium level, especially if you have a history of low potassium. - It is important to taper off of this medication when we finished with treatment, typically decreasing the dose 25 mg a week. Stopping Topiramate abruptly can cause irritability, anxiety and difficulty concentrating. Topiramate (toe pyre? a mate) What are the common names? Topamax Why is this medication prescribed? Topiramate is an anti-epileptic medications which has been approved by the FDA for patients 10 years of age or older for treatment of seizures. However, topiramate also has other uses such as the treatment of migraines. It also causes decrease in appetite and weight loss. The mechanism of weight loss is thought to be through inhibition of mitochondrial enzymes involved in energy expenditure and metabolism. Topiramate may work by helping you feel less hungry, less ?driven? to eat, more satisfied with less food. What special precautions should I follow? Before having topiramate prescribed, tell your doctor and pharmacist: If you have allergies to any component of topiramate If you are , plan to become , are breast-feeding, or if you become while taking topiramate What are the warnings and precautions for this medication? Immediately discontinue the medicine and seek medical help if you have severe cognitive/neuropsychiatric adverse symptoms or eye symptoms. Cognitive/neuropsychiatric adverse events: symptoms may include confusion, psychomotor slowing, difficulty with concentration/attention, difficulty with memory, speech or language problems, particularily word-finding difficulties, somnolence or fatigue Acute myopia and secondary angle closure glaucoma, usually within 1 month of starting treatment: symptoms may include blurred vision, redness and/or pain in the eye Oligohydrosis (decrease sweating) and hyperthermia (elevation in body temperature) Increase in suicidal behavior or ideation Metabolic acidosis, non-gap hyperchloremic (decreased serum bicarbonate below normal levels) resulting in hyperventilation or fatigue Kidney stones Paresthesias (numbness or tingling in hands or feet) Ataxia Dizziness Increase in urination frequency Drug interactions. Use of monamine oxidase inhibitors (MAOI?s), valproic acid, Caution use with dehydration or diarrheal illness, hepatic or renal impairment In case of emergency/overdose In case of overdose, call your local poison control center at or call local emergency services at [phone]. What other information should I know? Keep all appointments with your doctor and the laboratory. Do not let anyone else take your medication. Topiramate use needs to be monitored closely. Prescriptions may be refilled only a limited number of times. Keep a written list of all of your prescription and nonprescription (tklf-ona-xlhsdiz) medicines, in addition to vitamins, minerals, or other dietary supplements. How should I monitor while on this medication? Your doctor will check your baseline kidney function and electrolytes prior to starting this medication, then periodically. Continue to improve your dietary and physical activity habits as the combination works best while on this medication. Start out by taking the medication at bedtime as it can cause fatigue and sleepiness. Be sure to eat regular meals. Less hunger does not make it appropriate to skip meals. Make sure to have an eye exam, including the pressure in your eyes (intra-ocular pressure), once a year. What should I do if I forget a dose? Skip the missed dose and continue your regular dosing schedule the next day. Do not take a double dose to make up for a missed one. Sources [employer]: http://www.ncbi.nlm.nih.gov/pubmedhealth/FHR4471569/ Drugs.com http://www.drugs.com/pro/topiramate.html Why Is Protein So Important for Weight loss? consuming more protein not only reduces body weight but enhances body composition by decreasing fat mass while preserving fat-free mass During weight loss phase protein consumption (with normal kidney function) should be 1-1.6g protein per Kilogram of body weight (1kg=2.2lbs) On average Women need to Aim for a minimum 90g protein per day Consuming higher protein can also prevent weight regain after weight loss Protein consumption increases hormones responsible for satiety (feeling full)- these include Gut hormones like Glucagon-like peptide-1 (GLP-1), Cholecystokinin (CCK), Peptide Tyrosine-Tyrosine (PYY) and decreasing the Gut hormone responsible for causing hunger Ghrelin Protein has an increased thermogenesis effect of food- which means it take more calories to break down protein when consumed compared to carbohydrates or fats Protein also prevents a losing lean mass during weight loss (lose more fat and preserve fat free mass) which helps to increase resting energy expenditure (resting metabolic rate) Every pound of muscle bojorquez ~ 6 kcal per pound/day vs fat bojoqruez ~ 2kcal per pound/day Carbohydrates - Why do You Crave Them? Eating too many refined carbohyrdates (sugar beverages, pastries, bread, pizza) which raises your blood glucose levels and therefore releasing insulin which in turn causes increase in hunger Carbohydrates suppress Ghrelin quickly but does not maintain the suppression for very long therefore hunger returns more quickly Consuming carbohydrates leads to a release of Dopamine ?feel good hormone? in our brain So how do you Curb these cravings? Eating Whole Foods with more fiber - High fiber carbs are absorbed and digested slowly so it does not impact blood sugar levels as much and will help in making you feel kaufman for longer; fiber also is healthy for your gut bacteria and can help with constipation. Remember- carbohydrates are not the enemy but know what a proper serving size is, choose nutritious carbohydrates and space them out between meals. Always- eat your protein first followed by your non starchy vegetables followed by your carbohydrates- it will help your body with your glucose and insulin regulation Processed Foods vs Whole Foods- Impact on Weight: People who eat Ultra Processed food tend to consume about 500 calories more per day Ultra Processed foods are considered ?Calorie Dense? so when a person feels full they have typically already over eaten and consumed more calories Whole Foods (unprocessed foods) tend to be more more filling and more Nutrient Dense Unprocessed foods can be more expensive and not realistic for everyone however when you have the choice to consume unprocessed vs Ultra processed foods always pick unprocessed. Why can't people stop eating Ultra Processed foods? They are economical and optimized for taste by Symtavision - they are designed to make you want to keep eating them- they feed common cravings and bypass the mechanisms that tell your brain you are full Benefits of eating Whole Foods and cutting out Ultra Processed Foods Increased concentration and focus (decreased brain fog), improved mood, better sleep, Decrease in fatigue, improvement in gut health, decreased inflammation, Likely WEIGHT LOSS Prescriptions ordered this encounter Disp Refills Start End TOPIRAMATE 25 MG TABLET 180 * 0 01/10/2025 04/10/2025 Route: PO Sig: Take 1 tablet by mouth two times a day. Disposition: Return in about 3 months (around 04/12/2025) for wt mgt F/up. Follow-up and Disposition History for Encounter Date Provider Department Center 01/10/2025 [id number] BARBER [facility] Encounter Status:Closed by JACLYN BARBER on 01/10/25 PROGRESS Observed: 11/29/2024 1:30 PM Status: COMPLETED Source: [facility] HNO ID: [id number] Author: JACLYN BARBER APRN.TEACHER EDUCATION DIRECTOR Service: ? Author Type: Nurse Practitioner Type: Progress Notes Filed: 11/29/2024 19:43 Note Text: Some documentation from previous visit of 10/31/2024 was copied and pasted, documentation has been reviewed and edited as necessary for today's visit. Patient Summary: Forest is a 39 year old Female who presents for follow-up evaluation of obesity/weight management to treat and prevent related co-morbidities. In our previous visits we have discussed lifestyle intervention including a nutrition recommendations and physical activity optimization. Her last office visit was 1 month ago. Assessment/plan from last visit: Metformin ER 500 twice a day 0730 and with dinner - 1 gm twice a day with lunch and dinner Interval History PT specifies the following items as new or significant updates since the last appointment: Drinking only water now and feels better. Eating hit and miss. Feeling more fullness. Finished classes last week. Weight loss since last vist: 1 lb Date Weight BMI AOM 11/29/2024 173 lb 34.88 10/31/2024 174 lb 35.08 Metformin ER 1 gm bid 10/02/2024 170 lb 34.27 Metformin ER 500 mg bid WC 43.5 NC 14.5 5% weight loss = 167 lbs, 10% weight loss = 158 lbs Anti-obesity medications: Metformin. Benefit:less hunger later in the day and more fullness Adverse effects: diarrhea 4-5 times a week - Immodium helps Weight promoting medications: none Previous Diet (initial appointment): Diet/Nutrition overview: Awake - 0700 3 days a week - sips large coffee mint mocha mix from 0830 -3 B - SKIP/WE 50% of the time - eggs and toast S - none L - SKIP/ WE if did not eat bkft [employer] RB sandwich with sauce or leftovers S - none D - 7-8 pm lasagne or tacos or sausage rice casserole or teriyaki chicken and rice or grilled meat/baked potato with tea with SF drink mixes. eats out 3-4 times a week Chipotle - Steak, white rice, black beans, s cream, cheese, corn tomatoes, chips, sweet tea Subway - 6 in wheat Nauruan parra veg sweet tea Red Lobster - shrimp scampi, 2 biscuits, occas Anshul salad, sweet tea Green [place] - chicken fingers, fries or smothered grilled chicken and cottage cheese with sweet tea S - none Fluids: sweet tea and tea with SF mixes, 3 days a week - sips large coffee mint mocha mix from 0830 -3, no water Bedtime - midnight Quality of diet: 24hr recall suggests somewhat unhealthy diet. Characterization of diet:Structured, increased consumption of sugar sweetened beverages, and skip meals. Supervisor Winter of impaired eating habits:emotion and stress causes her to eat out instead of planning healthy meals and food prepping. Not hungry, gets full easily, stays full for up to 6 hours. Eating Disorder no Cravings: salty, crunchy Dietary changes: Initial + protein with every meal B - 729 30 gm premier protein shake / 1 WE eggs/ham and 1 pc wheat toast S - none L - 1230 SKIP OR egg salad on 2 slices wheat bread OR canned Progresso chicken noodle soup OR ham/cheese slider with broccoli cheddar soup/cheesy potato S - none D - 1830-7 pm Chipotle - Chicken, white rice, black beans, s cream, cheese, corn tomatoes OR Chicken fried rice/chicken wontons OR 2 crunchy beef/cheese tacos/lettuce and tomato OR broasted chicken thigh breaded shrimp/g beans/noodles at [facility] S - none Fluids - water Current Barriers: large portion sizes, inadequate sleep duration, and reduced physical activity Exercise: none Regular exercise: no Strength/resistance exercise:no Barriers to regular exercise? no Work-related activity:Sedentary. 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 Sleep: stable 6-7 hours. CrCl cannot be calculated (Unknown ideal weight.). 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 360 tablet 1 ketoconazole (NIZORAL) 2 % shampoo WASH THE SCALP ONCE EVERY OTHER WASH, LETTING IT LATHER FOR 3-5 MINUTES BEFORE RINSING amLODIPine (NORVASC) 10 mg tablet Take 1 tablet by mouth once daily. 90 tablet 1 labetalol (TRANDATE) 200 mg tablet Take 1 tablet by mouth three times daily. 90 tablet 1 omeprazole (PRILOSEC) 40 mg capsule Take 1 capsule by mouth twice daily before meals. 180 capsule 1 No current facility-administered medications for this visit. 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 Physical Exam Constitutional: She appears healthy. No distress. Results: recent labs reviewed with the patient. Latest Ref Rng AND Units 10/02/2024 CMP Sodium 136 - 144 mmol/L 137 Potassium 3.7 - 5.1 mmol/L 3.8 Chloride 98 - 107 mmol/L 104 CO2 22 - 30 mmol/L 21 Glucose 74 - 99 mg/dL 97 BUN 7 - 21 mg/dL 15 Creatinine 0.58 - 0.96 mg/dL 0.59 EGFR >=60 mL/min/1.73m? 119 Protein, Total 6.3 - 8.0 g/dL 7.6 Albumin 3.9 - 4.9 g/dL 4.6 Calcium 8.5 - 10.2 mg/dL 9.7 Bilirubin, Total 0.2 - 1.3 mg/dL 0.2 AST 13 - 35 U/L 19 ALT 7 - 38 U/L 26 Alkaline Phosphatase 34 - 123 U/L 74 Cholesterol, Total (mg/dL) Date Value 10/02/2024 189 06/08/2019 187 HDL Cholesterol (mg/dL) Date Value 10/02/2024 50 06/08/2019 71 LDL Cholesterol (mg/dL) Date Value 10/02/2024 91 06/08/2019 100 Triglyceride (mg/dL) Date Value 10/02/2024 238 06/08/2019 81 Latest Ref Rng AND Units 10/02/2024 CBC WBC 3.70 - 11.00 k/uL 7.44 RBC 3.90 - 5.20 m/uL 5.49 Hemoglobin 11.5 - 15.5 g/dL 13.1 Hematocrit 36.0 - 46.0 % 40.1 MCV 80.0 - 100.0 fL 73.0 MCH 26.0 - 34.0 pg 23.9 MCHC 30.5 - 36.0 g/dL 32.7 RDW-CV 11.5 - 15.0 % 14.9 Platelet Count 150 - 400 k/uL 266 MPV 9.0 - 12.7 fL 10.1 Vitamin D 25 Hydroxy Date Value Ref Range Status 10/10/2023 29.2 (L) 31.0 - 80.0 ng/mL Final 08/28/2018 39.1 31.0 - 80.0 ng/mL Final Comment: Classification of 25 OH Vitamin D status: Insufficiency/Moderate Deficiency: < or = 30 ng/mL Sufficiency/Optimal Levels: 31 to 80 ng/mL Toxicity: > 100 ng/mL Test performed by chemiluminescent immunoassay. TSH Date Value 10/10/2023 2.140 mIU/L 01/06/2023 1.960 mIU/L 09/08/2021 1.910 uU/mL 08/28/2018 1.810 uU/mL Hemoglobin A1C (%) Date Value 10/02/2024 4.7 01/06/2023 5.0 08/28/2018 5.1 04/20/2017 5.2 Insulin, Total 10/02/2024 Ref range 2.6 - 24.9 uU/mL Value 78.7 High Abdominal obesity: waist circumference >35cm inches (88cm) Y Serum triglycerides: >= 150 mg/dL or drug treatment for elevated triglycerides Y Serum HDL: <50mg/dL or drug treatment for Low HDL cholesterol N Blood Pressure: >= 130/85 or drug treatment for elevated BP Y Fasting Plasma Glcuose: >= 100 mg/dL or drug treatment for elevated blood glucose N Criteria met /5: Y Assessment/Plan: Forest Ovalle is a 39 year old yo with Class II obesity who presented today for follow up for supervised weight loss to treat and prevent related co-morbidities. 1. Hypertension, essential - ICD9: 401.9, ICD10: I10 (primary diagnosis) - treated with labetalol and amlodipine - 153/102 and 152/97 today -encouraged to call PCP and she agrees - Whole food balanced protein low-carb nutrition 2. GERD without esophagitis - ICD9: 530.81, ICD10: K21.9 - Discussed lifestyle modifications including losing weight, limiting caffeine, no meals three hours before sleep, and head of bed elevation - Omeprazole 40 mg - benefits of weight loss discussed - Whole food balanced protein low-carb nutrition 3. Hyperinsulinemia - ICD9: 251.1, ICD10: E16.1 - METFORMIN ER 500 MG TABLET,EXTENDED RELEASE 24 HR 4. Metabolic syndrome - ICD9: 277.7, ICD10: E88.810 - METFORMIN ER 500 MG TABLET,EXTENDED RELEASE 24 HR 5. Nonalcoholic fatty liver disease - ICD9: 571.8, ICD10: K76.0 - benefits of weight loss discussed - Whole food balanced protein low-carb nutrition 6. Class 1 obesity with serious comorbidity and body mass index (BMI) of 34.0 to 34.9 in adult, unspecified obesity type - ICD9: 278.00, V85.34, ICD10: E66.811, Z68.34 Weight decreased - METFORMIN ER 500 MG TABLET,EXTENDED RELEASE 24 HR - maximize dose - Recommended whole food balanced protein, controlled carbohydrate nutrition plan. - Encouraged to avoid processed and salty foods as blood pressure is elevated. - Given protein, whole food and high protein nutrition lists. - Walk for 15 minutes immediately after a meal. - Encouraged the patient to improve her physical activity. Although cardiovascular exercise is most beneficial for weight loss initially, we discussed healthy muscle from a combination of resistance training and cardiovascular exercise is the best assistant terminal manager plan. An overall goal of 150-200 minutes per week of exercise has been effective in weight loss and maintenance. Prescription instructions reviewed with patient as applicable. Potential red flag symptoms discussed with the patient. Reviewed appropriate action plan to take if red flag symptoms occur. Patient agreeable to treatment plan. Follow up in 6 weeks Jaclyn Barber CNP Advanced Education from the [employer] I spent a total of 39 minutes on the date of the service which included preparing to see the patient, [id number] patient care, completing clinical documentation, obtaining and/or reviewing separately obtained history, performing a medically appropriate examination, and counseling and educating the patient/family/caregiver. BIRDIE Observed: 11/29/2024 1:30 PM Status: COMPLETED Source: [facility] Office Visit (OBGYWM) FOREST OVALLE ([id number]) 1985 F Date Time Provider Department 11/29/24 1:30 PM JACLYN BARBER OBGYWM During your visit today, we recorded the following information about you: Pulse Blood pressure Weight Last Period 92/minute 152/97 78.5 kg 11/16/24 Jaclyn Barber, FISH HATCHERY ASSISTANT.TEACHER EDUCATION DIRECTOR 11/29/2024 2:05 PM Addendum - Whole food balanced protein, controlled carbohydrate nutrition plan - 30 g of protein 3 times a day and up to 30 g of carbs at lunch and dinner only. Breakfast - 30 gm protein with limit of 2 gm carbohydrates. Options include: Premier Protein or generic 30 gm protein 1 gm sugar or 5 eggs or 2-3 eggs and some unbreaded meat and/or cheese. No fruit, vegetables, bread, grain, yogurt, Smoothies, etc. Lunch and dinner - 30 gm protein is the goal with less than 30 gm carbohydrates Snacks - all protein or more protein than carbs Protein - no carbs Egg 1 large - 6g Egg white 1 large 3.6g 3 oz is approximately the size of a deck of cards and equals 21 g protein so 4 oz is 28 gm protein Beef, Chicken, [place], Pork, Duran 1 oz 7g Fish, Tuna Fish 1 oz 7g (Starkist tuna packet 2.6 oz 17 gm protein) Seafood (Crabmeat, Shrimp, Lobster) 1 oz 6g Protein shakes (read labels) Premier Protein or generic [employer] Equate, Me[employer] High Performance- 30g protein AND 1g carb - meal replacement Premier Protein powder or generic- 30 gm protein, 1g carb Premier Protein plant protein powder - 25 gm protein, 0 sugar/2 carb Vanilla and chocolate (not a meal replacement) Fairlife 30 gram protein - 30g protein AND 3g carb BOOST Glucose Control Max 30g Protein Nutritional Drink - 30g protein AND 1 carb - meal replacement Slimfast High Protein - 20g protein AND 1g carb Ensure Max Protein Nutrition Shake 30g protein AND 2 carb Protein AND carbs Beef/[place] Jerky 1 oz dried 10-15g protein - check carb count, can be high if sugar added Slim Jerardo - 6 gm protein and 4 net carb Great Value original turkey sausage sticks - 7 gm protein and 2 gm carb Belinda (at [facility]) Original smoked sausage sticks - 8 gm protein and 0 carb Imitation Crab Meat 1 oz - 2g protein AND 4g carb Milk, skim 2% or 1% 8 oz - 8g protein AND 12g carb Fairlife 2% milk 8 oz -13 g protein AND 6g carb [place] yogurt Full Fat [place] Yogurt 1 cup - 20.4g protein AND 9.1g carb 2% [place] Yogurt 1 cup - 22.7g protein AND 9.1g carb 0% (fat-free) [place] Yogurt - 1 cup 24g protein AND 9.3g carb Aldi Protein [place] yogurt single svg - 13/g15g protein AND 7g carb Chobani Zero Sugar single svg: - 12g protein AND 5g carb Chobani drinkable 15g, 20g and 30g protein AND 18 carb Dannon [place] Light + Fit 1 single svg - 12g protein AND 9g carb Oikos Pro single svg - 20g protein AND 8g carb Oikos Triple Zero [place] Nonfat Yogurt 1 single svg - 15g protein AND 7g carb Oikos Pro drinkable yogurt 1 single svg - 23 g protein AND 8 g carb :ratio, KETO Friendly Dairy Snack 1 single svg - 15g protein AND 2g carb :ratio Protein 1 single svg - 25g protein AND 8g carb Two Good Lowfat [place] Yogurt, [place], Lower Sugar - 12g protein AND 2g carb Yoplait Protein 1 single svg 15gm protein AND 5gm carb Dairy Free - [place] unsweetened [place] almond/soy 15 gm protein AND 3 gm carb Dairy Free - True Goodness by Jada coconut-based yogurt alternative 1 gm protein 1 gm net carb 180 maude Cheese each oz Brie 5.9g protein AND 0.1g carb Cheddar 7g protein AND 0.4g carb Rishi 6.7g protein AND 0.7g carb Cream Cheese 1.7g protein AND 1.2g carb Feta 4g protein AND 1.2g carb Mozzarella 6.3g protein AND 0.6g carb Parmesan 10g protein AND 0.9g carb Mongolian 7.6g protein AND 1.5g carb Cottage Cheese 1/2 c [place] 2% 13g protein 7g carb Kayleigh 2% 13g protein 5 g carb Good Culture 2% 14g protein 3g carb Ma?s Low Fat 12g protein AND 4g carb Legumes Lentils ? cup 9g protein AND 20g carb Gleason beans ? cup 7g protein AND 20g carb Kidney, Black, [place], Cannellini beans ? cup 8g protein AND 20g carb Soybeans 1/2 c 14g complete protein AND 8.5g carb Bertrand milk, unsweetened 8 oz 1g protein AND 2g carb Soy milk 8 oz 3.5g protein AND 1.6g carb Tofu 1/2 cup 10g protein AND 2.3g carb Peanut butter, natural 2 Tbsp 7-8g protein AND 4g net carbs, 190 calories PB2 powder 2 Tbsp 6g protein AND 5g carb Nuts and Seeds per oz Almonds - 5.9g protein AND 6.1g carb Orange Nuts - 4.0g protein AND 3.4g carb Cashews - 5.1g protein AND 9.2g carb Hazelnuts - 4.2g protein AND 4.7g carb Hemp seeds/hearts 3 T/30 gms - 9.5 gm complete protein and 2.5 gm carb Peanuts - 7g protein AND 4.6g carb Pecans - 2.6g protein AND 3.9g carb Pistachios - 5.8g protein AND 7.8g carb Pumpkin Seeds - 6.9g protein AND 5g carb Butts Seeds - 5.8g protein AND 5.6g carb Walnuts - 4.3g protein AND 3.8g carb Edamame Beans (soybean) snack 1 pack 11 gm complete protein 2 carb 5 (FIVE) gram carb vegetable options 1 cup raw OR ? cup cooked: Asparagus Nicholson sprouts Beets Broccoli Brussel sprouts Cabbage Carrots Cauliflower Celery [place] Eggplant Green beans Lettuce Peppers Snap peas Spaghetti squash Spinach Tomato Turnips Zucchini 15 gram carb vegetable options ? cup cooked corn or hominy ? corn on the cob, large (5 oz) ? cup cooked green peas 4.3 gm complete protein ? cup cooked gleason beans 1 small potato or sweet potato ? cup cooked potato, plain ? cup cooked sweet potato, plain 1 cup winter squash (pumpkin, acorn, butternut) 1 cup marinara or pasta sauce - check label ? cup tomato juice ? cup tomato puree Beans, Seeds, Nuts ? cup cooked beans (kidney, valencia, red, green, etc.) ? cup cooked lentils ? cup baked beans 4 tablespoons nut butter <15 gram carb fruit options Berries have the lowest sugar content 1/2 medium apple - 12.5 carbs 1/2 medium avocado - 6.5 gm carbs 1/2 medium banana - 15 carbs 1/2 cup blueberries - 11 carbs - may actually help you lose weight 1/2 cup fresh cherries -11 carbs 1 medium Kerrie -9 carbs 1/2 cup fresh cranberries - 6.5 carbs 1/2 c grapes - 15 carbs 1/2 medium grapefruit - 10.5 carbs 1/2 cup diced honeydew melon - 8 carbs 1 medium kiwi without skin - 11 carbs 1/2 cup sliced melvina -14 carbs 1 medium nectarine - 15 carbs 1 medium orange -15.5 carbs 1 medium peach -14.5 carbs 1/2 cup fresh pineapple -11 carbs 1 medium plum -7.5 carbs 1 prune - 6 carbs 1/4 c raisins - 31.25 carbs 1/2 cup raspberries -7.5 carbs 1/2 c strawberries - 12.7 carbs 1 medium tangerine -12 carbs 1/2 cup diced watermelon - 6 carbs Grains Brown rice 1/2 c 5.5g protein 24 carb White long-grain rice 1/2 c 2g protein 22.5 carb Quinoa 1/2 c 4 gm complete protein 25 carb Oatmeal, old fashioned 1/2 c 5g protein 27g carb High Protein Snack Ideas 1. Jerky 2. [place] mix without dried fruit 3. [place] roll-ups 4. [place] yogurt 5. Veggies and yogurt dip 6. Tuna 7. Hard-boiled eggs 8. Peanut butter with celery 9. Cheese slices/ Cheese Stick 10. Handful of almonds, peanuts or walnuts 11. Cottage Cheese 12. Beef sticks 13. Protein bars 14. [place] 15. Pumpkin seeds 16. Nut butter 17. Protein shakes 18. Avocado and chicken salad 19. Egg muffins 20. Leftover protein or lunch meat 21. 1/2 c blended cottage cheese or [place] yogurt with dry ranch/Mrs. Dash/herb seasoning mix to make protein dip 22. 1/2 c blended cottage cheese with 1 Tbsp sugar-free dry cheesecake pudding mix 12g protein 10 carb 23. Pudding - 1 30 gm protein shake with 1/2 pkg sugar-free pudding 4 svgs - 7.8 gm protein, 5 carb each svg 24. SF Sunkist or Root Beer with 1-2 Tablespoons heavy whipping cream 25. Mini frozen dessert bites - layer protein yogurt, skinny syrup and crushed nuts and freeze Jaclyn Barber APRN.TEACHER EDUCATION DIRECTOR 11/29/2024 7:43 PM Signed Some documentation from previous visit of 10/31/2024 was copied and pasted, documentation has been reviewed and edited as necessary for today's visit. Patient Summary: Forest is a 39 year old Female who presents for follow-up evaluation of obesity/weight management to treat and prevent related co-morbidities. In our previous visits we have discussed lifestyle intervention including a nutrition recommendations and physical activity optimization. Her last office visit was 1 month ago. Assessment/plan from last visit: Metformin ER 500 twice a day 0730 and with dinner - 1 gm twice a day with lunch and dinner Interval History PT specifies the following items as new or significant updates since the last appointment: Drinking only water now and feels better. Eating hit and miss. Feeling more fullness. Finished classes last week. Weight loss since last vist: 1 lb Date Weight BMI AOM 11/29/2024 173 lb 34.88 10/31/2024 174 lb 35.08 Metformin ER 1 gm bid 10/02/2024 170 lb 34.27 Metformin ER 500 mg bid WC 43.5 NC 14.5 5% weight loss = 167 lbs, 10% weight loss = 158 lbs Anti-obesity medications: Metformin. Benefit:less hunger later in the day and more fullness Adverse effects: diarrhea 4-5 times a week - Immodium helps Weight promoting medications: none Previous Diet (initial appointment): Diet/Nutrition overview: Awake - 0700 3 days a week - sips large coffee mint mocha mix from 0830 -3 B - SKIP/WE 50% of the time - eggs and toast S - none L - SKIP/ WE if did not eat [employer]Videos[employer]'s RB sandwich with sauce or leftovers S - none D - 7-8 pm lasagne or tacos or sausage rice casserole or teriyaki chicken and rice or grilled meat/baked potato with tea with SF drink mixes. eats out 3-4 times a week Chipotle - Steak, white rice, black beans, s cream, cheese, corn tomatoes, chips, sweet tea Subway - 6 in wheat Nauruan parra veg sweet tea Red Lobster - shrimp scampi, 2 biscuits, occas Anshul salad, sweet tea Green [place] - chicken fingers, fries or smothered grilled chicken and cottage cheese with sweet tea S - none Fluids: sweet tea and tea with SF mixes, 3 days a week - sips large coffee mint mocha mix from 0830 -3, no water Bedtime - midnight Quality of diet: 24hr recall suggests somewhat unhealthy diet. Characterization of diet:Structured, increased consumption of sugar sweetened beverages, and skip meals. Supervisor Winter of impaired eating habits:emotion and stress causes her to eat out instead of planning healthy meals and food prepping. Not hungry, gets full easily, stays full for up to 6 hours. Eating Disorder no Cravings: salty, crunchy Dietary changes: Initial + protein with every meal B - 0730 30 gm premier protein shake / 1 WE eggs/ham and 1 pc wheat toast S - none L - 1230 SKIP OR egg salad on 2 slices wheat bread OR canned Progresso chicken noodle soup OR ham/cheese slider with broccoli cheddar soup/cheesy potato S - none D - 1830-7 pm Chipotle - Chicken, white rice, black beans, s cream, cheese, corn tomatoes OR Chicken fried rice/chicken wontons OR 2 crunchy beef/cheese tacos/lettuce and tomato OR broasted chicken thigh breaded shrimp/g beans/noodles at [facility] S - none Fluids - water Current Barriers: large portion sizes, inadequate sleep duration, and reduced physical activity Exercise: none Regular exercise: no Strength/resistance exercise:no Barriers to regular exercise? no Work-related activity:Sedentary. 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 Sleep: stable 6-7 hours. CrCl cannot be calculated (Unknown ideal weight.). 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 360 tablet 1 ketoconazole (NIZORAL) 2 % shampoo WASH THE SCALP ONCE EVERY OTHER WASH, LETTING IT LATHER FOR 3-5 MINUTES BEFORE RINSING amLODIPine (NORVASC) 10 mg tablet Take 1 tablet by mouth once daily. 90 tablet 1 labetalol (TRANDATE) 200 mg tablet Take 1 tablet by mouth three times daily. 90 tablet 1 omeprazole (PRILOSEC) 40 mg capsule Take 1 capsule by mouth twice daily before meals. 180 capsule 1 No current facility-administered medications for this visit. 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 Physical Exam Constitutional: She appears healthy. No distress. Results: recent labs reviewed with the patient. Latest Ref Rng AND Units 10/02/2024 CMP Sodium 136 - 144 mmol/L 137 Potassium 3.7 - 5.1 mmol/L 3.8 Chloride 98 - 107 mmol/L 104 CO2 22 - 30 mmol/L 21 Glucose 74 - 99 mg/dL 97 BUN 7 - 21 mg/dL 15 Creatinine 0.58 - 0.96 mg/dL 0.59 EGFR >=60 mL/min/1.73m? 119 Protein, Total 6.3 - 8.0 g/dL 7.6 Albumin 3.9 - 4.9 g/dL 4.6 Calcium 8.5 - 10.2 mg/dL 9.7 Bilirubin, Total 0.2 - 1.3 mg/dL 0.2 AST 13 - 35 U/L 19 ALT 7 - 38 U/L 26 Alkaline Phosphatase 34 - 123 U/L 74 Cholesterol, Total (mg/dL) Date Value 10/02/2024 189 06/08/2019 187 HDL Cholesterol (mg/dL) Date Value 10/02/2024 50 06/08/2019 71 LDL Cholesterol (mg/dL) Date Value 10/02/2024 91 06/08/2019 100 Triglyceride (mg/dL) Date Value 10/02/2024 238 06/08/2019 81 Latest Ref Rng AND Units 10/02/2024 CBC WBC 3.70 - 11.00 k/uL 7.44 RBC 3.90 - 5.20 m/uL 5.49 Hemoglobin 11.5 - 15.5 g/dL 13.1 Hematocrit 36.0 - 46.0 % 40.1 MCV 80.0 - 100.0 fL 73.0 MCH 26.0 - 34.0 pg 23.9 MCHC 30.5 - 36.0 g/dL 32.7 RDW-CV 11.5 - 15.0 % 14.9 Platelet Count 150 - 400 k/uL 266 MPV 9.0 - 12.7 fL 10.1 Vitamin D 25 Hydroxy Date Value Ref Range Status 10/10/2023 29.2 (L) 31.0 - 80.0 ng/mL Final 08/28/2018 39.1 31.0 - 80.0 ng/mL Final Comment: Classification of 25 OH Vitamin D status: Insufficiency/Moderate Deficiency: < or = 30 ng/mL Sufficiency/Optimal Levels: 31 to 80 ng/mL Toxicity: > 100 ng/mL Test performed by chemiluminescent immunoassay. TSH Date Value 10/10/2023 2.140 mIU/L 01/06/2023 1.960 mIU/L 09/08/2021 1.910 uU/mL 08/28/2018 1.810 uU/mL Hemoglobin A1C (%) Date Value 10/02/2024 4.7 01/06/2023 5.0 08/28/2018 5.1 04/20/2017 5.2 Insulin, Total 10/02/2024 Ref range 2.6 - 24.9 uU/mL Value 78.7 High Abdominal obesity: waist circumference >35cm inches (88cm) Y Serum triglycerides: >= 150 mg/dL or drug treatment for elevated triglycerides Y Serum HDL: <50mg/dL or drug treatment for Low HDL cholesterol N Blood Pressure: >= 130/85 or drug treatment for elevated BP Y Fasting Plasma Glcuose: >= 100 mg/dL or drug treatment for elevated blood glucose N Criteria met 10/17: Y Assessment/Plan: Forest Ovalle is a 39 year old yo with Class II obesity who presented today for follow up for supervised weight loss to treat and prevent related co-morbidities. 1. Hypertension, essential - ICD9: 401.9, ICD10: I10 (primary diagnosis) - treated with labetalol and amlodipine - 153/102 and 152/97 today -encouraged to call PCP and she agrees - Whole food balanced protein low-carb nutrition 2. GERD without esophagitis - ICD9: 530.81, ICD10: K21.9 - Discussed lifestyle modifications including losing weight, limiting caffeine, no meals three hours before sleep, and head of bed elevation - Omeprazole 40 mg - benefits of weight loss discussed - Whole food balanced protein low-carb nutrition 3. Hyperinsulinemia - ICD9: 251.1, ICD10: E16.1 - METFORMIN ER 500 MG TABLET,EXTENDED RELEASE 24 HR 4. Metabolic syndrome - ICD9: 277.7, ICD10: E88.810 - METFORMIN ER 500 MG TABLET,EXTENDED RELEASE 24 HR 5. Nonalcoholic fatty liver disease - ICD9: 571.8, ICD10: K76.0 - benefits of weight loss discussed - Whole food balanced protein low-carb nutrition 6. Class 1 obesity with serious comorbidity and body mass index (BMI) of 34.0 to 34.9 in adult, unspecified obesity type - ICD9: 278.00, V85.34, ICD10: E66.811, Z68.34 Weight decreased - METFORMIN ER 500 MG TABLET,EXTENDED RELEASE 24 HR - maximize dose - Recommended whole food balanced protein, controlled carbohydrate nutrition plan. - Encouraged to avoid processed and salty foods as blood pressure is elevated. - Given protein, whole food and high protein nutrition lists. - Walk for 15 minutes immediately after a meal. - Encouraged the patient to improve her physical activity. Although cardiovascular exercise is most beneficial for weight loss initially, we discussed healthy muscle from a combination of resistance training and cardiovascular exercise is the best assistant terminal manager plan. An overall goal of 150-200 minutes per week of exercise has been effective in weight loss and maintenance. Prescription instructions reviewed with patient as applicable. Potential red flag symptoms discussed with the patient. Reviewed appropriate action plan to take if red flag symptoms occur. Patient agreeable to treatment plan. Follow up in 6 weeks Jaclyn Barber CNP Advanced Education from the [employer] I spent a total of 39 minutes on the date of the service which included preparing to see the patient, [id number] patient care, completing clinical documentation, obtaining and/or reviewing separately obtained history, performing a medically appropriate examination, and counseling and educating the patient/family/caregiver. Allergies As of Date: 11/29/2024 (No Known Allergies) Date Reviewed: 11/29/2024 Reviewed by: Jaclyn Barber APRN.TEACHER EDUCATION DIRECTOR - Fully Assessed Reason for Visit: Weight Management [3933] Primary Visit Diagnosis:Hypertension, essential [I10] Other Visit Diagnoses:GERD without esophagitis [K21.9] Hyperinsulinemia [E16.1] Metabolic syndrome [E88.810] Nonalcoholic fatty liver disease [K76.0] Class 1 obesity with serious comorbidity and body mass index (BMI) of 34.0 to 34.9 in adult, unspecified obesity type [E66.811, Z68.34] Prescriptions as of 11/29/2024 - metFORMIN ER (GLUCOPHAGE XR) 500 mg 24 hr tablet Take 2 tablets by mouth two times a day with meals. - ketoconazole (NIZORAL) 2 % shampoo WASH THE SCALP ONCE EVERY OTHER WASH, LETTING IT LATHER FOR 3-5 MINUTES BEFORE RINSING - amLODIPine (NORVASC) 10 mg tablet Take 1 tablet by mouth once daily. - labetalol (TRANDATE) 200 mg tablet Take 1 tablet by mouth three times daily. - omeprazole (PRILOSEC) 40 mg capsule Take 1 capsule by mouth twice daily before meals. Problem List As Of Date 11/29/2024 Noted Resolved Encounter for in vitro fertilization [Z31.83] 02/04/2017 04/04/2019 Hypertension, essential [I10] 10/20/2017 resulting from assisted reproductive *08/31/2018 04/04/2019 Pre-existing essential hypertension complicatin*08/31/2018 04/04/2019 Family history of congenital heart defect [Z82.*08/31/2018 04/04/2019 Positive GBS test [B95.1] 03/02/2019 04/04/2019 GERD without esophagitis [K21.9] 12/25/2021 Fatigue [R53.83] 09/10/2022 Nonalcoholic fatty liver disease [K76.0] 10/23/2022 Gastroparesis [K31.84] 10/23/2022 Gastric antral vascular ectasia [K31.819] 09/23/2022 Class 1 obesity with serious comorbidity and linsey*10/02/2024 Hyperinsulinemia [E16.1] 10/30/2024 Metabolic syndrome [E88.810] 10/31/2024 Other instructions from your clinician: - Whole food balanced protein, controlled carbohydrate nutrition plan - 30 g of protein 3 times a day and up to 30 g of carbs at lunch and dinner only. Breakfast - 30 gm protein with limit of 2 gm carbohydrates. Options include: Premier Protein or generic 30 gm protein 1 gm sugar or 5 eggs or 2-3 eggs and some unbreaded meat and/or cheese. No fruit, vegetables, bread, grain, yogurt, Smoothies, etc. Lunch and dinner - 30 gm protein is the goal with less than 30 gm carbohydrates Snacks - all protein or more protein than carbs Protein - no carbs Egg 1 large - 6g Egg white 1 large 3.6g 3 oz is approximately the size of a deck of cards and equals 21 g protein so 4 oz is 28 gm protein Beef, Chicken, [place], Pork, Duran 1 oz 7g Fish, Tuna Fish 1 oz 7g (Starkist tuna packet 2.6 oz 17 gm protein) Seafood (Crabmeat, Shrimp, Lobster) 1 oz 6g Protein shakes (read labels) Premier Protein or generic [employer] Equate, [employer] High Performance- 30g protein AND 1g carb - meal replacement Premier Protein powder or generic- 30 gm protein, 1g carb Premier Protein plant protein powder - 25 gm protein, 0 sugar/2 carb Vanilla and chocolate (not a meal replacement) Fairlife 30 gram protein - 30g protein AND 3g carb BOOST Glucose Control Max 30g Protein Nutritional Drink - 30g protein AND 1 carb - meal replacement Slimfast High Protein - 20g protein AND 1g carb Ensure Max Protein Nutrition Shake 30g protein AND 2 carb Protein AND carbs Beef/[place] Jerky 1 oz dried 10-15g protein - check carb count, can be high if sugar added Slim Jerardo - 6 gm protein and 4 net carb Great Value original turkey sausage sticks - 7 gm protein and 2 gm carb Belinda (at [employer]) Original smoked sausage sticks - 8 gm protein and 0 carb Imitation Crab Meat 1 oz - 2g protein AND 4g carb Milk, skim 2% or 1% 8 oz - 8g protein AND 12g carb Fairlife 2% milk 8 oz -13 g protein AND 6g carb [place] yogurt Full Fat [place] Yogurt 1 cup - 20.4g protein AND 9.1g carb 2% [place] Yogurt 1 cup - 22.7g protein AND 9.1g carb 0% (fat-free) [place] Yogurt - 1 cup 24g protein AND 9.3g carb Aldi Protein [place] yogurt single svg - 13/g15g protein AND 7g carb Chobani Zero Sugar single svg: - 12g protein AND 5g carb Chobani drinkable 15g, 20g and 30g protein AND 18 carb Dannon [place] Light + Fit 1 single svg - 12g protein AND 9g carb Oikos Pro single svg - 20g protein AND 8g carb Oikos Triple Zero [place] Nonfat Yogurt 1 single svg - 15g protein AND 7g carb Oikos Pro drinkable yogurt 1 single svg - 23 g protein AND 8 g carb :ratio, KETO Friendly Dairy Snack 1 single svg - 15g protein AND 2g carb :ratio Protein 1 single svg - 25g protein AND 8g carb Two Good Lowfat [place] Yogurt, [place], Lower Sugar - 12g protein AND 2g carb Yoplait Protein 1 single svg 15gm protein AND 5gm carb Dairy Free - [place] unsweetened [place] almond/soy 15 gm protein AND 3 gm carb Dairy Free - True Goodness by [employer] coconut-based yogurt alternative 1 gm protein 1 gm net carb 180 maude Cheese each oz Brie 5.9g protein AND 0.1g carb Cheddar 7g protein AND 0.4g carb Rishi 6.7g protein AND 0.7g carb Cream Cheese 1.7g protein AND 1.2g carb Feta 4g protein AND 1.2g carb Mozzarella 6.3g protein AND 0.6g carb Parmesan 10g protein AND 0.9g carb Mongolian 7.6g protein AND 1.5g carb Cottage Cheese 1/2 c Breakstone 2% 13g protein 7g carb Kayleigh 2% 13g protein 5 g carb Good Culture 2% 14g protein 3g carb Ma?s Low Fat 12g protein AND 4g carb Legumes Lentils ? cup 9g protein AND 20g carb Gleason beans ? cup 7g protein AND 20g carb Kidney, Black, [place], Cannellini beans ? cup 8g protein AND 20g carb Soybeans 1/2 c 14g complete protein AND 8.5g carb Bertrand milk, unsweetened 8 oz 1g protein AND 2g carb Soy milk 8 oz 3.5g protein AND 1.6g carb Tofu 1/2 cup 10g protein AND 2.3g carb Peanut butter, natural 2 Tbsp 7-8g protein AND 4g net carbs, 190 calories PB2 powder 2 Tbsp 6g protein AND 5g carb Nuts and Seeds per oz Almonds - 5.9g protein AND 6.1g carb Orange Nuts - 4.0g protein AND 3.4g carb Cashews - 5.1g protein AND 9.2g carb Hazelnuts - 4.2g protein AND 4.7g carb Hemp seeds/hearts 3 T/30 gms - 9.5 gm complete protein and 2.5 gm carb Peanuts - 7g protein AND 4.6g carb Pecans - 2.6g protein AND 3.9g carb Pistachios - 5.8g protein AND 7.8g carb Pumpkin Seeds - 6.9g protein AND 5g carb Butts Seeds - 5.8g protein AND 5.6g carb Walnuts - 4.3g protein AND 3.8g carb Edamame Beans (soybean) snack 1 pack 11 gm complete protein 2 carb 5 (FIVE) gram carb vegetable options 1 cup raw OR ? cup cooked: Asparagus Nicholson sprouts Beets Broccoli Brussel sprouts Cabbage Carrots Cauliflower Celery [place] Eggplant Green beans Lettuce Peppers Snap peas Spaghetti squash Spinach Tomato Turnips Zucchini 15 gram carb vegetable options ? cup cooked corn or hominy ? corn on the cob, large (5 oz) ? cup cooked green peas 4.3 gm complete protein ? cup cooked gleason beans 1 small potato or sweet potato ? cup cooked potato, plain ? cup cooked sweet potato, plain 1 cup winter squash (pumpkin, acorn, butternut) 1 cup marinara or pasta sauce - check label ? cup tomato juice ? cup tomato puree Beans, Seeds, Nuts ? cup cooked beans (kidney, valencia, red, green, etc.) ? cup cooked lentils ? cup baked beans 4 tablespoons nut butter <15 gram carb fruit options Berries have the lowest sugar content 1/2 medium apple - 12.5 carbs 1/2 medium avocado - 6.5 gm carbs 1/2 medium banana - 15 carbs 1/2 cup blueberries - 11 carbs - may actually help you lose weight 1/2 cup fresh cherries -11 carbs 1 medium Kerrie -9 carbs 1/2 cup fresh cranberries - 6.5 carbs 1/2 c grapes - 15 carbs 1/2 medium grapefruit - 10.5 carbs 1/2 cup diced honeydew melon - 8 carbs 1 medium kiwi without skin - 11 carbs 1/2 cup sliced melvina -14 carbs 1 medium nectarine - 15 carbs 1 medium orange -15.5 carbs 1 medium peach -14.5 carbs 1/2 cup fresh pineapple -11 carbs 1 medium plum -7.5 carbs 1 prune - 6 carbs 1/4 c raisins - 31.25 carbs 1/2 cup raspberries -7.5 carbs 1/2 c strawberries - 12.7 carbs 1 medium tangerine -12 carbs 1/2 cup diced watermelon - 6 carbs Grains Brown rice 1/2 c 5.5g protein 24 carb White long-grain rice 1/2 c 2g protein 22.5 carb Quinoa 1/2 c 4 gm complete protein 25 carb Oatmeal, old fashioned 1/2 c 5g protein 27g carb High Protein Snack Ideas 1. Jerky 2. [place] mix without dried fruit 3. [place] roll-ups 4. [place] yogurt 5. Veggies and yogurt dip 6. Tuna 7. Hard-boiled eggs 8. Peanut butter with celery 9. Cheese slices/ Cheese Stick 10. Handful of almonds, peanuts or walnuts 11. Cottage Cheese 12. Beef sticks 13. Protein bars 14. Canned [place] 15. Pumpkin seeds 16. Nut butter 17. Protein shakes 18. Avocado and chicken salad 19. Egg muffins 20. Leftover protein or lunch meat 21. 1/2 c blended cottage cheese or [place] yogurt with dry ranch/Mrs. Dash/herb seasoning mix to make protein dip 22. 1/2 c blended cottage cheese with 1 Tbsp sugar-free dry cheesecake pudding mix 12g protein 10 carb 23. Pudding - 1 30 gm protein shake with 1/2 pkg sugar-free pudding 4 svgs - 7.8 gm protein, 5 carb each svg 24. SF Sunkist or Root Beer with 1-2 Tablespoons heavy whipping cream 25. Mini frozen dessert bites - layer protein yogurt, skinny syrup and crushed nuts and freeze Disposition: Return in about 6 weeks (around 01/10/2025) for wt mgt F/up. Follow-up and Disposition History for Encounter Date Provider Department Center 11/29/2024 [id number], AMY KHARI Carbajal Encounter Status:Closed by JACLYN BARBER on 11/29/24 PROGRESS Observed: 10/31/2024 7:00 AM Status: COMPLETED Source: [facility] HNO ID: [id number] Author: JACLYN BARBER APRN.TEACHER EDUCATION DIRECTOR Service: ? Author Type: Nurse Practitioner Type: Progress Notes Filed: 10/31/2024 11:19 Note Text: Some documentation from previous visit of 10/02/2024 was copied and pasted, documentation has been reviewed and edited as necessary for today's visit. Patient Summary: Forest is a 39 year old Female who presents for follow-up evaluation of obesity/weight management to treat and prevent related co-morbidities. In our previous visits we have discussed lifestyle intervention including a nutrition recommendations and physical activity optimization. Her last office visit was 1 month ago. Assessment/plan from last visit: Metformin ER 500 twice a day 0730 and with dinner Interval History PT specifies the following items as new or significant updates since the last appointment: Used to skipping breakfast and then not be hungry but now drinking the protein shake at 0730 makes her hungry around [id number] Stopped coffee in am and sweet tea Weight loss since last vist: +4 lbs - feels she is eating more calories Date Weight BMI AOM 10/31/2024 174 lb 35.08 Metformin ER 1 gm bid 10/02/2024 170 lb 34.27 Metformin ER 500 mg bid WC 43.5 NC 14.5 5% weight loss = 167 lbs, 10% weight loss = 158 lbs Anti-obesity medications: Metformin. Benefit:less hunger later in the day Adverse effects: none Weight promoting medications: none Previous Diet (initial appointment): Diet/Nutrition overview: Awake - 0700 3 days a week - sips large coffee mint mocha mix from 0830 -3 B - SKIP/WE 50% of the time - eggs and toast S - none L - SKIP/ WE if did not eat bkft [employer] RB sandwich with sauce or leftovers S - none D - 7-8 pm lasagne or tacos or sausage rice casserole or teriyaki chicken and rice or grilled meat/baked potato with tea with SF drink mixes. eats out 3-4 times a week Chipotle - Steak, white rice, black beans, s cream, cheese, corn tomatoes, chips, sweet tea Subway - 6 in wheat Nauruan parra veg sweet tea Red Lobster - shrimp scampi, 2 biscuits, occas Anshul salad, sweet tea Green [place] - chicken fingers, fries or smothered grilled chicken and cottage cheese with sweet tea S - none Fluids: sweet tea and tea with SF mixes, 3 days a week - sips large coffee mint mocha mix from 0830 -3, no water Bedtime - midnight Quality of diet: 24hr recall suggests somewhat unhealthy diet. Characterization of diet:Structured, increased consumption of sugar sweetened beverages, and skip meals. Supervisor Winter of impaired eating habits:emotion and stress causes her to eat out instead of planning healthy meals and food prepping. Not hungry, gets full easily, stays full for up to 6 hours. Eating Disorder no Cravings: salty, crunchy Dietary changes: Initial - 729 30 gm premier protein shake S - none L - 1230 at work at [employer]term - protein usually with gravy, veg, carb approx 1500 maude/ WE leftovers rice noodles chicken onion stirfry at [employer] S - sometimes chips at work D - 1830-7 pm brats with bun/asparagus/canned peaches OR pepperoni pizza thin OR pork chops/baked potato/ OR rice noodles chicken onion stirfry at [employer] S - none Fluids - water, SF drink mixes Current Barriers: stress eating, eating high-calorie foods, lack of motivation, inadequate sleep duration, and reduced physical activity Exercise: none Regular exercise: no Strength/resistance exercise:no Barriers to regular exercise? no Work-related activity:Sedentary. 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 Sleep: stable 6-7 hours. CrCl cannot be calculated (Unknown ideal weight.). 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 180 tablet 1 ketoconazole (NIZORAL) 2 % shampoo WASH THE SCALP ONCE EVERY OTHER WASH, LETTING IT LATHER FOR 3-5 MINUTES BEFORE RINSING amLODIPine (NORVASC) 10 mg tablet Take 1 tablet by mouth once daily. 90 tablet 1 labetalol (TRANDATE) 200 mg tablet Take 1 tablet by mouth three times daily. 90 tablet 1 omeprazole (PRILOSEC) 40 mg capsule Take 1 capsule by mouth twice daily before meals. 180 capsule 1 No current facility-administered medications for this visit. 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 Physical Exam Constitutional: She appears healthy. No distress. Results: recent labs reviewed with the patient. Latest Ref Rng AND Units 10/02/2024 CMP Sodium 136 - 144 mmol/L 137 Potassium 3.7 - 5.1 mmol/L 3.8 Chloride 98 - 107 mmol/L 104 CO2 22 - 30 mmol/L 21 Glucose 74 - 99 mg/dL 97 BUN 7 - 21 mg/dL 15 Creatinine 0.58 - 0.96 mg/dL 0.59 EGFR >=60 mL/min/1.73m? 119 Protein, Total 6.3 - 8.0 g/dL 7.6 Albumin 3.9 - 4.9 g/dL 4.6 Calcium 8.5 - 10.2 mg/dL 9.7 Bilirubin, Total 0.2 - 1.3 mg/dL 0.2 AST 13 - 35 U/L 19 ALT 7 - 38 U/L 26 Alkaline Phosphatase 34 - 123 U/L 74 Cholesterol, Total (mg/dL) Date Value 10/02/2024 189 06/08/2019 187 HDL Cholesterol (mg/dL) Date Value 10/02/2024 50 06/08/2019 71 LDL Cholesterol (mg/dL) Date Value 10/02/2024 91 06/08/2019 100 Triglyceride (mg/dL) Date Value 10/02/2024 238 06/08/2019 81 Latest Ref Rng AND Units 10/02/2024 CBC WBC 3.70 - 11.00 k/uL 7.44 RBC 3.90 - 5.20 m/uL 5.49 Hemoglobin 11.5 - 15.5 g/dL 13.1 Hematocrit 36.0 - 46.0 % 40.1 MCV 80.0 - 100.0 fL 73.0 MCH 26.0 - 34.0 pg 23.9 MCHC 30.5 - 36.0 g/dL 32.7 RDW-CV 11.5 - 15.0 % 14.9 Platelet Count 150 - 400 k/uL 266 MPV 9.0 - 12.7 fL 10.1 Vitamin D 25 Hydroxy Date Value Ref Range Status 10/10/2023 29.2 (L) 31.0 - 80.0 ng/mL Final 08/28/2018 39.1 31.0 - 80.0 ng/mL Final Comment: Classification of 25 OH Vitamin D status: Insufficiency/Moderate Deficiency: < or = 30 ng/mL Sufficiency/Optimal Levels: 31 to 80 ng/mL Toxicity: > 100 ng/mL Test performed by chemiluminescent immunoassay. TSH Date Value 10/10/2023 2.140 mIU/L 01/06/2023 1.960 mIU/L 09/08/2021 1.910 uU/mL 08/28/2018 1.810 uU/mL Hemoglobin A1C (%) Date Value 10/02/2024 4.7 01/06/2023 5.0 08/28/2018 5.1 04/20/2017 5.2 Insulin, Total 10/02/2024 Ref range 2.6 - 24.9 uU/mL Value 78.7 High Abdominal obesity: waist circumference >35cm inches (88cm) Y Serum triglycerides: >= 150 mg/dL or drug treatment for elevated triglycerides Y Serum HDL: <50mg/dL or drug treatment for Low HDL cholesterol N Blood Pressure: >= 130/85 or drug treatment for elevated BP Y Fasting Plasma Glcuose: >= 100 mg/dL or drug treatment for elevated blood glucose N Criteria met 10/17: Y Assessment/Plan: Forest Ovalle is a 39 year old yo with Class II obesity (Body mass index is 34.27 kg/m?.) who presented today for follow up for supervised weight loss to treat and prevent related co-morbidities. 1. Hypertension, essential - ICD9: 401.9, ICD10: I10 (primary diagnosis) - treated with labetalol and amlodipine - Home BP 130's/87 - benefits of weight loss discussed - Whole food balanced protein low-carb nutrition 2. GERD without esophagitis - ICD9: 530.81, ICD10: K21.9 - Discussed lifestyle modifications including losing weight, limiting caffeine, no meals three hours before sleep, and head of bed elevation - Omeprazole 40 mg - benefits of weight loss discussed - Whole food balanced protein low-carb nutrition 3. Hyperinsulinemia - ICD9: 251.1, ICD10: E16.1 - METFORMIN ER 500 MG TABLET,EXTENDED RELEASE 24 HR 4. Metabolic syndrome - ICD9: 277.7, ICD10: E88.810 - METFORMIN ER 500 MG TABLET,EXTENDED RELEASE 24 HR 5. Nonalcoholic fatty liver disease - ICD9: 571.8, ICD10: K76.0 - benefits of weight loss discussed - Whole food balanced protein low-carb nutrition 6. Class 1 obesity with serious comorbidity and body mass index (BMI) of 34.0 to 34.9 in adult, unspecified obesity type - ICD9: 278.00, V85.34, ICD10: E66.811, Z68.34 Weight increased - METFORMIN ER 500 MG TABLET,EXTENDED RELEASE 24 HR - maximize dose We discussed common side effects of this medication including nausea, changes in bowel habits, abdominal discomfort, and flatulence. Discussed taking it with food and complication of lactic acidosis and signs/symptoms and medication handout given. Further instructed that if she experiences malaise, muscle aches, difficulty breathing, or severe abdominal pain to seek immediate medical attention. -- We discussed continuing focusing on whole foods and 30 gm protein first meal of the day or progressing to whole food balanced protein low-carb nutrition today. She will continue with the following until next follow-up appointment: Eating primarily whole foods. Limit carbs, especially processed carbs. Do not drink your calories 30 grams of protein for breakfast decreases your hunger during the day by up to 40 % Premier Protein or generic 30 gm protein 1 gm sugar - Protein with every meal Walk for 15 minutes immediately after a meal. Discussed and given information on the benefits on blood sugar. - Encouraged the patient to improve her physical activity. Although cardiovascular exercise is most beneficial for weight loss initially, we discussed healthy muscle from a combination of resistance training and cardiovascular exercise is the best [facility]itent[facility] plan. An overall goal of 150-200 minutes per week of exercise has been effective in weight loss and maintenance. Prescription instructions reviewed with patient as applicable. Potential red flag symptoms discussed with the patient. Reviewed appropriate action plan to take if red flag symptoms occur. Patient agreeable to treatment plan. Follow up in 4 weeks Jaclyn Barber CNP Advanced Education from the Obesity [employer] Association Medical Decision Making: Problems: Moderate: 1+ chronic illnesses with change and 2+ stable chronic illnesses Risk: Moderate: Drug management and Moderate risk from testing/treatment Medical Decision Making Level: 4 - Moderate CNOV Observed: 10/31/2024 7:00 AM Status: COMPLETED Source: [facility] Office Visit (ZANEGY) BORAFOREST DUPONT ([id number]) 1985 F Date Time Provider Department 10/31/24 7:00 AM JACLYN BARBER During your visit today, we recorded the following information about you: Pulse Blood pressure Weight Last Period 98/minute 142/88 78.9 kg 10/17/24 Jaclyn Barber APRN.CNP 10/31/2024 11:19 AM Signed Some documentation from previous visit of 10/02/2024 was copied and pasted, documentation has been reviewed and edited as necessary for today's visit. Patient Summary: Forest is a 39 year old Female who presents for follow-up evaluation of obesity/weight management to treat and prevent related co-morbidities. In our previous visits we have discussed lifestyle intervention including a nutrition recommendations and physical activity optimization. Her last office visit was 1 month ago. Assessment/plan from last visit: Metformin ER 500 twice a day 0730 and with dinner Interval History PT specifies the following items as new or significant updates since the last appointment: Used to skipping breakfast and then not be hungry but now drinking the protein shake at 0730 makes her hungry around [id number] Stopped coffee in am and sweet tea Weight loss since last vist: +4 lbs - feels she is eating more calories Date Weight BMI AOM 10/31/2024 174 lb 35.08 Metformin ER 1 gm bid 10/02/2024 170 lb 34.27 Metformin ER 500 mg bid WC 43.5 NC 14.5 5% weight loss = 167 lbs, 10% weight loss = 158 lbs Anti-obesity medications: Metformin. Benefit:less hunger later in the day Adverse effects: none Weight promoting medications: none Previous Diet (initial appointment): Diet/Nutrition overview: Awake - 0700 3 days a week - sips large coffee mint mocha mix from 0830 -3 B - SKIP/WE 50% of the time - eggs and toast S - none L - SKIP/ WE if did not eat [employer]'s RB sandwich with sauce or leftovers S - none D - 7-8 pm lasagne or tacos or sausage rice casserole or teriyaki chicken and rice or grilled meat/baked potato with tea with SF drink mixes. eats out 3-4 times a week [employer] - Steak, white rice, black beans, s cream, cheese, corn tomatoes, chips, sweet tea Subway - 6 in wheat Nauruan parra veg sweet tea [employer]ob[employer] - shrimp scampi, 2 biscuits, occas Anshul salad, sweet tea [employer] [place] - chicken fingers, fries or smothered grilled chicken and cottage cheese with sweet tea S - none Fluids: sweet tea and tea with SF mixes, 3 days a week - sips large coffee mint mocha mix from 0830 -3, no water Bedtime - midnight Quality of diet: 24hr recall suggests somewhat unhealthy diet. Characterization of diet:Structured, increased consumption of sugar sweetened beverages, and skip meals. Supervisor Winter of impaired eating habits:emotion and stress causes her to eat out instead of planning healthy meals and food prepping. Not hungry, gets full easily, stays full for up to 6 hours. Eating Disorder no Cravings: salty, crunchy Dietary changes: Initial B - 729 30 gm premier protein shake S - none L - 1230 at work at longterm - protein usually with gravy, veg, carb approx 1500 maude/ WE leftovers rice noodles chicken onion stirfry at [facility] S - sometimes chips at work D - 1830-7 pm brats with bun/asparagus/canned peaches OR pepperoni pizza thin OR pork chops/baked potato/ OR rice noodles chicken onion stirfry at [employer] S - none Fluids - water, SF drink mixes Current Barriers: stress eating, eating high-calorie foods, lack of motivation, inadequate sleep duration, and reduced physical activity Exercise: none Regular exercise: no Strength/resistance exercise:no Barriers to regular exercise? no Work-related activity:Sedentary. 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 Sleep: stable 6-7 hours. CrCl cannot be calculated (Unknown ideal weight.). 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 180 tablet 1 ketoconazole (NIZORAL) 2 % shampoo WASH THE SCALP ONCE EVERY OTHER WASH, LETTING IT LATHER FOR 3-5 MINUTES BEFORE RINSING amLODIPine (NORVASC) 10 mg tablet Take 1 tablet by mouth once daily. 90 tablet 1 labetalol (TRANDATE) 200 mg tablet Take 1 tablet by mouth three times daily. 90 tablet 1 omeprazole (PRILOSEC) 40 mg capsule Take 1 capsule by mouth twice daily before meals. 180 capsule 1 No current facility-administered medications for this visit. 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 Physical Exam Constitutional: She appears healthy. No distress. Results: recent labs reviewed with the patient. Latest Ref Rng AND Units 10/02/2024 CMP Sodium 136 - 144 mmol/L 137 Potassium 3.7 - 5.1 mmol/L 3.8 Chloride 98 - 107 mmol/L 104 CO2 22 - 30 mmol/L 21 Glucose 74 - 99 mg/dL 97 BUN 7 - 21 mg/dL 15 Creatinine 0.58 - 0.96 mg/dL 0.59 EGFR >=60 mL/min/1.73m? 119 Protein, Total 6.3 - 8.0 g/dL 7.6 Albumin 3.9 - 4.9 g/dL 4.6 Calcium 8.5 - 10.2 mg/dL 9.7 Bilirubin, Total 0.2 - 1.3 mg/dL 0.2 AST 13 - 35 U/L 19 ALT 7 - 38 U/L 26 Alkaline Phosphatase 34 - 123 U/L 74 Cholesterol, Total (mg/dL) Date Value 10/02/2024 189 06/08/2019 187 HDL Cholesterol (mg/dL) Date Value 10/02/2024 50 06/08/2019 71 LDL Cholesterol (mg/dL) Date Value 10/02/2024 91 06/08/2019 100 Triglyceride (mg/dL) Date Value 10/02/2024 238 06/08/2019 81 Latest Ref Rng AND Units 10/02/2024 CBC WBC 3.70 - 11.00 k/uL 7.44 RBC 3.90 - 5.20 m/uL 5.49 Hemoglobin 11.5 - 15.5 g/dL 13.1 Hematocrit 36.0 - 46.0 % 40.1 MCV 80.0 - 100.0 fL 73.0 MCH 26.0 - 34.0 pg 23.9 MCHC 30.5 - 36.0 g/dL 32.7 RDW-CV 11.5 - 15.0 % 14.9 Platelet Count 150 - 400 k/uL 266 MPV 9.0 - 12.7 fL 10.1 Vitamin D 25 Hydroxy Date Value Ref Range Status 10/10/2023 29.2 (L) 31.0 - 80.0 ng/mL Final 08/28/2018 39.1 31.0 - 80.0 ng/mL Final Comment: Classification of 25 OH Vitamin D status: Insufficiency/Moderate Deficiency: < or = 30 ng/mL Sufficiency/Optimal Levels: 31 to 80 ng/mL Toxicity: > 100 ng/mL Test performed by chemiluminescent immunoassay. TSH Date Value 10/10/2023 2.140 mIU/L 01/06/2023 1.960 mIU/L 09/08/2021 1.910 uU/mL 08/28/2018 1.810 uU/mL Hemoglobin A1C (%) Date Value 10/02/2024 4.7 01/06/2023 5.0 08/28/2018 5.1 04/20/2017 5.2 Insulin, Total 10/02/2024 Ref range 2.6 - 24.9 uU/mL Value 78.7 High Abdominal obesity: waist circumference >35cm inches (88cm) Y Serum triglycerides: >= 150 mg/dL or drug treatment for elevated triglycerides Y Serum HDL: <50mg/dL or drug treatment for Low HDL cholesterol N Blood Pressure: >= 130/85 or drug treatment for elevated BP Y Fasting Plasma Glcuose: >= 100 mg/dL or drug treatment for elevated blood glucose N Criteria met 10/17: Y Assessment/Plan: Forest Ovalle is a 39 year old yo with Class II obesity (Body mass index is 34.27 kg/m?.) who presented today for follow up for supervised weight loss to treat and prevent related co-morbidities. 1. Hypertension, essential - ICD9: 401.9, ICD10: I10 (primary diagnosis) - treated with labetalol and amlodipine - Home BP 130's/87 - benefits of weight loss discussed - Whole food balanced protein low-carb nutrition 2. GERD without esophagitis - ICD9: 530.81, ICD10: K21.9 - Discussed lifestyle modifications including losing weight, limiting caffeine, no meals three hours before sleep, and head of bed elevation - Omeprazole 40 mg - benefits of weight loss discussed - Whole food balanced protein low-carb nutrition 3. Hyperinsulinemia - ICD9: 251.1, ICD10: E16.1 - METFORMIN ER 500 MG TABLET,EXTENDED RELEASE 24 HR 4. Metabolic syndrome - ICD9: 277.7, ICD10: E88.810 - METFORMIN ER 500 MG TABLET,EXTENDED RELEASE 24 HR 5. Nonalcoholic fatty liver disease - ICD9: 571.8, ICD10: K76.0 - benefits of weight loss discussed - Whole food balanced protein low-carb nutrition 6. Class 1 obesity with serious comorbidity and body mass index (BMI) of 34.0 to 34.9 in adult, unspecified obesity type - ICD9: 278.00, V85.34, ICD10: E66.811, Z68.34 Weight increased - METFORMIN ER 500 MG TABLET,EXTENDED RELEASE 24 HR - maximize dose We discussed common side effects of this medication including nausea, changes in bowel habits, abdominal discomfort, and flatulence. Discussed taking it with food and complication of lactic acidosis and signs/symptoms and medication handout given. Further instructed that if she experiences malaise, muscle aches, difficulty breathing, or severe abdominal pain to seek immediate medical attention. -- We discussed continuing focusing on whole foods and 30 gm protein first meal of the day or progressing to whole food balanced protein low-carb nutrition today. She will continue with the following until next follow-up appointment: Eating primarily whole foods. Limit carbs, especially processed carbs. Do not drink your calories 30 grams of protein for breakfast decreases your hunger during the day by up to 40 % Premier Protein or generic 30 gm protein 1 gm sugar - Protein with every meal Walk for 15 minutes immediately after a meal. Discussed and given information on the benefits on blood sugar. - Encouraged the patient to improve her physical activity. Although cardiovascular exercise is most beneficial for weight loss initially, we discussed healthy muscle from a combination of resistance training and cardiovascular exercise is the best penitentiary plan. An overall goal of 150-200 minutes per week of exercise has been effective in weight loss and maintenance. Prescription instructions reviewed with patient as applicable. Potential red flag symptoms discussed with the patient. Reviewed appropriate action plan to take if red flag symptoms occur. Patient agreeable to treatment plan. Follow up in 4 weeks Jaclyn Barber CNP Advanced Education from the Obesity Medicine Association Medical Decision Making: Problems: Moderate: 1+ chronic illnesses with change and 2+ stable chronic illnesses Risk: Moderate: Drug management and Moderate risk from testing/treatment Medical Decision Making Level: 4 - Moderate Jaclyn Barber APRN.RUBINA 10/31/2024 11:19 AM Addendum Increase metformin to 1 gm with lunch and dinner - Eat primarily whole foods. Limit carbs, especially processed carbs. Eat - Meat, vegetables and fruits with skin on if possible, eggs, cheese. - Do not drink your calories - 30 grams of protein for your first meal of the day decreases your hunger during the day by up to 40 %. Options include: Premier Protein or generic 30 gm protein 1 gm sugar or 5 eggs or 2-3 eggs and some unbreaded meat and/or cheese. No fruit, vegetables, bread, grain, yogurt, Smoothies, etc. Protein with every meal - Walk for 15 minutes immediately after meal B - 30 gm protein shake B - option 1/2 protein shake and TwoGood yogurt or :ratio, KETO Friendly Dairy Snack 1 single svg B - 18 eggs - meat - cheese 9 x13 bake 6 servings A Short Walk After Meals Is All It Takes to Lower Blood Sugar Researchers studying older adults with pre-diabetes found that 15 minutes of lvos-uq-elmpyios exercise after every meal curbed risky blood sugar spikes all day. Seniors are more prone to developing diabetes, but a little exercise could make a big difference. A study published today in Diabetes Care found that three short walks each day after meals were as effective at reducing blood sugar over 24 hours as a single 45-minute walk at the same moderate pace. Even better, taking an evening constitutional was found to be much more effective at lowering blood sugar following supper. The evening meal, often the largest of the day, can significantly raise 24-hour glucose levels. The innovative exercise science study was conducted at the Clinical Exercise Physiology Laboratory at the [facility] ([facility]) using whole room calorimeters. Ludy Ruff, Ph.D., chair of the [facility] Department of Exercise Science, led the study. ?These findings are good news for people in their 70s and 80s who may feel more capable of engaging in intermittent physical activity on a daily basis,? Speedy said in a press release. Putting Humans in a Box to Measure Their Energy Use The whole room calorimeter (WRM), which looks like a very small hotel room, is a controlled-air environment for human study that allows scientists to calculate a person?s energy expenditure by testing samples of air. The balance of oxygen consumed and carbon dioxide produced varies according to the activity level of the person in the room. The WRM also measures the body?s use of different food fuels, such as carbohydrates, proteins, and fats. The 10 study participants spent three 48-hour periods in the small calorimeter rooms. Each room was equipped with a bed, toilet, sink, treadmill, television, and computer, leaving little room to move around. Participants ate standardized meals, and their blood sugar levels were monitored continuously using blood tests. The first day in the WR served as a control period, with no exercise. On the second day, participants either walked at a moderate pace on the treadmill for 15 minutes after each meal, or for 45 minutes in either the late morning or before supper. The researchers observed that the evening post-meal walk was the most effective in lowering blood sugar levels for a full 24 hours. 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 How Age Affects Insulin Resistance An estimated 79 million Americans have pre-diabetes, according to the National Diabetes Education Program run by the National Institutes of Health. But many people have no idea they are at risk. According to Speedy, older people may be particularly susceptible to poor blood sugar control after meals because inactive muscles contribute to insulin resistance. The problem is compounded by slow or low insulin secretion by the pancreas, which often occurs as the body ages. ?Post-meal high blood sugar is a benson risk factor in the progression from impaired glucose tolerance (pre-diabetes) to type 2 diabetes and cardiovascular disease,? Speedy explained. Other studies have suggested that weight loss and exercise can prevent type 2 diabetes. The authors say theirs is the first study to examine short bouts of physical activity timed around the risky period following meals--a time when blood sugar can rise rapidly and potentially cause damage to internal organs and blood vessels. ?The muscle contractions connected with short walks were immediately effective in blunting the potentially damaging elevations in post-meal blood sugar commonly observed in older people,? Speedy said. If the findings of this small study hold up to further testing, it could lead to an inexpensive prevention strategy for pre-diabetes, which can develop over time into type 2 diabetes. Back in the day, it was ?de g[place]? to take a morning, noon, and evening walk. The time has come to get up from the table, tie on those walking shoes, and take a little stroll around the block. https://[email or web address]/health-news/ooqog-fxlwhrv-mftlt-[email or web address]-yoldywt-[email or web address] . Allergies As of Date: 10/31/2024 (No Known Allergies) Date Reviewed: 10/31/2024 Reviewed by: Jaclyn Barber APRN.TEACHER EDUCATION DIRECTOR - Fully Assessed Reason for Visit: Weight Management [3933] Primary Visit Diagnosis:Hypertension, essential [I10] Other Visit Diagnoses:GERD without esophagitis [K21.9] Hyperinsulinemia [E16.1] Metabolic syndrome [E88.810] Nonalcoholic fatty liver disease [K76.0] Class 1 obesity with serious comorbidity and body mass index (BMI) of 34.0 to 34.9 in adult, unspecified obesity type [E66.811, Z68.34] Order(s):metFORMIN ER (GLUCOPHAGE XR) 500 mg 24 hr tabletTake 2 tablets by mouth two times a day with meals.Disp: 360 tabletRfl: 1 Prescriptions as of 10/31/2024 - metFORMIN ER (GLUCOPHAGE XR) 500 mg 24 hr tablet Take 2 tablets by mouth two times a day with meals. - ketoconazole (NIZORAL) 2 % shampoo WASH THE SCALP ONCE EVERY OTHER WASH, LETTING IT LATHER FOR 3-5 MINUTES BEFORE RINSING - amLODIPine (NORVASC) 10 mg tablet Take 1 tablet by mouth once daily. - labetalol (TRANDATE) 200 mg tablet Take 1 tablet by mouth three times daily. - omeprazole (PRILOSEC) 40 mg capsule Take 1 capsule by mouth twice daily before meals. Problem List As Of Date 10/31/2024 Noted Resolved Encounter for in vitro fertilization [Z31.83] 02/04/2017 04/04/2019 Hypertension, essential [I10] 10/20/2017 resulting from assisted reproductive *08/31/2018 04/04/2019 Pre-existing essential hypertension complicatin*08/31/2018 04/04/2019 Family history of congenital heart defect [Z82.*08/31/2018 04/04/2019 Positive GBS test [B95.1] 03/02/2019 04/04/2019 GERD without esophagitis [K21.9] 12/25/2021 Fatigue [R53.83] 09/10/2022 Nonalcoholic fatty liver disease [K76.0] 10/23/2022 Gastroparesis [K31.84] 10/23/2022 Gastric antral vascular ectasia [K31.819] 09/23/2022 Class 1 obesity with serious comorbidity and linsey*10/02/2024 Hyperinsulinemia [E16.1] 10/30/2024 Metabolic syndrome [E88.810] 10/31/2024 Other instructions from your clinician: Increase metformin to 1 gm with lunch and dinner - Eat primarily whole foods. Limit carbs, especially processed carbs. Eat - Meat, vegetables and fruits with skin on if possible, eggs, cheese. - Do not drink your calories - 30 grams of protein for your first meal of the day decreases your hunger during the day by up to 40 %. Options include: Premier Protein or generic 30 gm protein 1 gm sugar or 5 eggs or 2-3 eggs and some unbreaded meat and/or cheese. No fruit, vegetables, bread, grain, yogurt, Smoothies, etc. Protein with every meal - Walk for 15 minutes immediately after meal B - 30 gm protein shake B - option 1/2 protein shake and TwoGood yogurt or :ratio, KETO Friendly Dairy Snack 1 single svg B - 12-18 eggs - meat - cheese 9 x13 bake 6 servings A Short Walk After Meals Is All It Takes to Lower Blood Sugar Researchers studying older adults with pre-diabetes found that 15 minutes of lgzs-yz-pmcxcfmf exercise after every meal curbed risky blood sugar spikes all day. Seniors are more prone to developing diabetes, but a little exercise could make a big difference. A study published today in Diabetes Care found that three short walks each day after meals were as effective at reducing blood sugar over 24 hours as a single 45-minute walk at the same moderate pace. Even better, taking an evening constitutional was found to be much more effective at lowering blood sugar following supper. The evening meal, often the largest of the day, can significantly raise 24-hour glucose levels. The innovative exercise science study was conducted at the Clinical Exercise Physiology Laboratory at the [facility] ([facility]) using whole room calorimeters. Ludy Ruff, Ph.D., chair of the [facility] Department of Exercise Science, led the study. ?These findings are good news for people in their 70s and 80s who may feel more capable of engaging in intermittent physical activity on a daily basis,? Speedy said in a press release. Putting Humans in a Box to Measure Their Energy Use The whole room calorimeter (WRM), which looks like a very small hotel room, is a controlled-air environment for human study that allows scientists to calculate a person?s energy expenditure by testing samples of air. The balance of oxygen consumed and carbon dioxide produced varies according to the activity level of the person in the room. The WRM also measures the body?s use of different food fuels, such as carbohydrates, proteins, and fats. The 10 study participants spent three 48-hour periods in the small calorimeter rooms. Each room was equipped with a bed, toilet, sink, treadmill, television, and computer, leaving little room to move around. Participants ate standardized meals, and their blood sugar levels were monitored continuously using blood tests. The first day in the WRM served as a control period, with no exercise. On the second day, participants either walked at a moderate pace on the treadmill for 15 minutes after each meal, or for 45 minutes in either the late morning or before supper. The researchers observed that the evening post-meal walk was the most effective in lowering blood sugar levels for a full 24 hours. 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 How Age Affects Insulin Resistance An estimated 79 million Americans have pre-diabetes, according to the National Diabetes Education Program run by the National Institutes of Health. But many people have no idea they are at risk. According to Speedy, older people may be particularly susceptible to poor blood sugar control after meals because inactive muscles contribute to insulin resistance. The problem is compounded by slow or low insulin secretion by the pancreas, which often occurs as the body ages. ?Post-meal high blood sugar is a benson risk factor in the progression from impaired glucose tolerance (pre-diabetes) to type 2 diabetes and cardiovascular disease,? Speedy explained. Other studies have suggested that weight loss and exercise can prevent type 2 diabetes. The authors say theirs is the first study to examine short bouts of physical activity timed around the risky period following meals--a time when blood sugar can rise rapidly and potentially cause damage to internal organs and blood vessels. ?The muscle contractions connected with short walks were immediately effective in blunting the potentially damaging elevations in post-meal blood sugar commonly observed in older people,? Speedy said. If the findings of this small study hold up to further testing, it could lead to an inexpensive prevention strategy for pre-diabetes, which can develop over time into type 2 diabetes. Back in the day, it was ?finnegan? to take a morning, noon, and evening walk. The time has come to get up from the table, tie on those walking shoes, and take a little stroll around the block. https://www.Power [id number] . Prescriptions ordered this encounter Disp Refills Start End METFORMIN ER 500 MG TABLET,EXTENDED * 360 * 1 10/31/2024 04/29/2025 Route: ORAL Sig: Take 2 tablets by mouth two times a day with meals. Medications Discontinued During This Encounter Prescriptions - metFORMIN ER (GLUCOPHAGE XR) 500 mg 24 hr tablet (Discontinued) Take 1 tablet by mouth two times a day with meals. Disposition: Return in about 4 weeks (around 11/28/2024) for wt mgt F/up. Follow-up and Disposition History for Encounter Date Provider Department Center 10/31/2024 [id number] BARBER [facility] Encounter Status:Closed by JACLYN BARBER on 10/31/24 DEPRECATED HGB A1C BLD Collected: 10/02 9:30 AM Status: F Source: [facility] Order Comment: Specimen Type : BLOOD SPECIMEN Ordering Facility: [facility] Address: [address] [place] [address] TYPE CODE TESTS RESULT OUT OF RANGE REFERENCE UNITS LAB 4548-4(LOINC) HbA1c MFr Bld 4.7 4.3-5.6 % Result Comment: [place] Yvonne betes Association guidelines indicate that patients with HgbA1c in the range 5.7-6.4% are at increased risk for development of diabetes, and intervention by lifestyle modification may be beneficial. HgbA1c greater or equal to 6.5% is considered diagnostic of diabetes. LAB 18991-6(LOINC) Est. average glucose Bld gHb Est-mCnc 88 mg/dL Result Comment: eAG: (Estima pito average glucose) is a calculated value from HgbA1c and is electroplating sales representative of the average blood glucose level in the last 2-3 month period. Performed By: #### 42164-0 # ### [facility] CLIA [id number] [address] [place] [place] [address] [place] FE INSULIN SERPL-ACNC Collected: 10/02/2024 9:30 AM Sta tus: F Source: [facility] Comment: Specimen Type : BLOOD SPECIMEN Ordering Facility: [facility] Address: [address] [place] [address] TYPE CODE TESTS RESULT OUT OF RANGE REFERENCE UNITS LAB 79649-0([facility]) Insulin SerPl-aCnc 78.7 High 2.6-24.9 uU/mL Performed By: #### 62987-4 # ### [facility] CLIA [id number] [address] [place] [address] [place] COMP METAB 2000 PNL SERPL Collected: 9:30 AM Status: F Source: [facility] Comment: Specimen Type : BLOOD SPECIMEN Ordering Facility: [facility] Address: [address] [place] [address] TYPE CODE TESTS RESULT OUT OF RANGE REFERENCE UNITS LAB 2885-2(LOINC) Prot SerPl-mCnc 7.6 6.3-8.0 g/dL LAB 1751-7(LOINC) Albumin SerPl-mCnc 4.6 3.9-4.9 g/dL LAB 09310-0(LOINC) Calcium SerPl-mCnc 9.7 8.5-10.2 mg/dL LAB 1975-2(LOINC) Bilirub SerPl-mCnc 0.2 0.2-1.3 mg/dL LAB 6768-6(LOINC) ALP SerPl-cCnc 74 34-123 U/L LAB 1920-8(LOINC) AST SerPl-cCnc 19 13-35 U/L LAB 1742-6(LOINC) ALT SerPl-cCnc 26 7-38 U/L LAB 2345-7(LOINC) Glucose SerPl-mCnc 97 74-99 mg/dL Result Comment: The [place] Diabetes Association (ADA) provides guidance for cutoff values for fasting glucose and random glucose. The ADA defines fasting as no caloric intake for at least 8 hours. Fasting plasma glucose results between 100 to 125 mg/dL indicate increased risk for diabetes (prediabetes). Fasting plasma glucose results greater than or equal to 126 mg/dL meet the criteria for diagnosis of diabetes. In the absence of unequivocal hyperglycemia, results should be confirmed by repeat testing. In a patient with classic symptoms of hyperglycemia or hyperglycemic crisis, random plasma glucose results greater than or equal to 200 mg/dL meet the criteria for diagnosis of diabetes. Reference: Standards of Medical Care in Diabetes 2016, [place] Diabetes Association. Diabetes Care. 2016.39(Suppl 1). LAB 3094-0(LOINC) BUN SerPl-mCnc 15 7-21 mg/ dL LAB 2160-0(LOINC) Creat SerPl-mCnc 0.59 0.58-0.96 mg/dL LAB 2951-2(LOINC) Sodium SerPl-sCnc 137 136-144 mmol/L LAB 2823-3(LOINC) Potassium SerPl-sCnc 3.8 3.7-5.1 mmol/L LAB 2075-0(LOINC) Chloride SerPl-sCnc 104 98-107 mmol/L LAB 2028-9(LOINC) CO2 SerPl-sCnc 21 Low 22-30 mmo l/L LAB 76085-0(LOINC) Anion Gap SerPl-sCnc 12 8-15 mmol/L LAB 49384-1(LOINC) Creatinine + eGFR Pnl SerPlBld 119 >=60 mL/min/1 .73m??? Result Comment: Estimated Gl omerular Filtration Rate (eGFR) is calculated using the 2020 CKD-EPI creatinine equation. This equation utilizes serum creatinine, sex, and age as parameters. The creatinine assay has traceable calibration to isotope dilution-mass spectrometry. Refer to KDIGO guidelines for clinical interpretation. In patients with unstable renal function, e.g. those with acute kidney injury, the eGFR may not accurately reflect actual GFR. Performed By: #### 12649-9 # ### [facility] CLIA [id number] [address] [place] [address] [place] LIPID 1996 PNL SERPL Collected: 025 9:30 AM Status: F Source: [facility] Order Comment: Specimen Type : BLOOD SPECIMEN Ordering Facility: [facility] Address: [address] [place], [place] [address] [address] TYPE CODE TESTS RESULT OUT OF RANGE REFERENCE UNITS LAB 2093-3(LOINC) Cholest SerPl-mCnc 189 <200 mg/dL Result Comment: <200 mg/dL, Desirable 200-239 mg/dL, Borderline high >239 mg/dL, High LAB 2571-8(LOINC) Trigl SerPl-mCnc 238 High <150 mg/dL Result Comment: <150 mg/dL, Normal 150-199 mg/dL, Borderline high 200-499 mg/dL, High >499 mg/dL, Very high LAB 2085-9(LOINC) HDLc SerPl-mCnc 50 >39 mg/dL Result Comment: 40-59 mg/dL, Acceptable >59 mg/dL, High: Negative risk factor for coronary heart disease <40 mg/dL, Low: Positive risk factor for coronary heart disease LAB 80156-2(LOINC) NonHDLc SerPl-mCnc 139 High <130 mg/dL Result Comment: <130 mg/dL, Optimal 130-159 mg/dL, Near optimal/above optimal 160-189 mg/dL, Borderline high 190-219 mg/dL, High >219 mg/dL, Very high Secondary prevention optimal non HDL Cholesterol levels are recommended to be <100 mg/dL LAB FT FASTING TIME 12 hrs LAB 66611-8(LOINC) VLDLc SerPl Calc-mCnc 48 High <30 mg/dL LAB 9830-1(LOINC) Cholest/HDLc SerPl 3.78 <5.10 LAB 2089-1(LOINC) LDLc SerPl-mCnc 91 <100 mg/dL Result Comment: <100 mg/dL, Optimal 100-129 mg/dL, Near optimal/above optimal 130-159 mg/dL, Borderline high 160-189 mg/dL, High >189 mg/dL, Very high Secondary prevention optimal LDL Cholesterol levels are recommended to be < 70 mg/dL LAB 64499-6(LOINC) LDLc/HDLc SerPl 1.82 <2.54 Result Comment: Reference: 1. National Cholesterol Education Program ATP III Guideline At-A-Glance Quick Desk Reference: National Heart, Lung, and Blood [place]. National Institutes of Health. 2001: NIH Publication No. 01-3305. 2. An International Atherosclerosis Society position paper: global recommendations for the management of dyslipidemia: executive summary, Atherosclerosis. 2014: 232(2):410-413. Performed By: #### 94447-0 # ### [facility] CLIA [id number] [address] [place] [address] STATES OF [facility] CLIA [id number] [address] STATES OF [place] CBC PNL BLD AUTO Collected: 5 9:30 AM Status: F Source: [facility] Order Comment: Specimen Type : BLOOD SPECIMEN Ordering Facility: [facility] Address: [address] [place] [address] TYPE CODE TESTS RESULT OUT OF RANGE REFERENCE UNITS LAB 6690-2(LOINC) WBC # Bld Auto 7.44 3.70-11.00 k/uL LAB 789-8(LOINC) RBC # Bld Auto 5.49 High 3.90-5.20 m/uL LAB 718-7(LOINC) Hgb Bld-mCnc 13.1 11.5-15.5 g/dL LAB 4544-3(LOINC) Hct VFr Bld Auto 40.1 36.0-46.0 % LAB 787-2(LOINC) MCV RBC Auto 73.0 Low 80.0-100.0 fL LAB 785-6(LOINC) MCH RBC Qn Auto 23.9 Low 26.0-34.0 pg LAB 786-4(LOINC) MCHC RBC Auto-mCnc 32.7 30.5-36.0 g/dL LAB 39367-2(LOINC) RDW RBC-Rto 14.9 11.5-15.0 % LAB 777-3(LOINC) Platelet # Bld Auto 266 150-400 k/uL LAB 48321-5(LOINC) PMV Bld Auto 10.1 9.0-12.7 fL LAB 771-6([facility]) nRBC # Bld Auto <0.01 <0.01 k/uL Performed By: #### 22171-0 # ### [facility] CLIA [id number] [address] [place] [address] CNOV Observed: 10/02/2024 8:00 AM Status: COMPLETED Source: [facility] Office Visit (OBGYWM) FOREST OVALLE ([id number]) 1985 F Date Time Provider Department 10/02/24 8:00 AM JACLYN BARBER During your visit today, we recorded the following information about you: Pulse Blood pressure Weight Height 97/minute 154/98 77.1 kg 1.5 m Last Period 09/17/24 Jaclyn Barber APRN.[facility] 10/02/2024 10:52 AM Signed Patient Summary: Forest Ovalle is a 39 year old female with obesity who presents for an initial evaluation of overweight/obesity to treat and prevent co-morbidities and is interested in combination of behavioral and pharmacological. Motivation for seeking treatment for the disease of overweight/obesity : Mostly my own health, interested in learning more about healthy habits and weight loss and what will work best, has a 5 year old daughter Goal weight: 130 Lowest recall weight: 120 Highest non- recall weight: 190 Patient identified barriers to weight loss: struggle with consistency, mental strength to make better choices, easily discouraged. Weight History: She reports a strong family history of obesity and adolescence weight gain. She states her weight gain is related to the following factors, including reduced physical activity, inadequate sleep duration, and portion control, weight gain. Difficulty losing weight? yes History of weight loss with regain? Yes - Last Wt 10/02/24 : 77.1 kg (170 lb) 5% weight loss = 167 lbs, 10% weight loss = 158 lbs WEIGHT GRAPH: Diet/Nutrition overview: Awake - 0700 3 days a week - sips large coffee mint mocha mix from 0830 -3 B - SKIP/WE 50% of the time - eggs and toast S - none L - SKIP/ WE if did not eat bkZhuhai OmeSoft Arby's RB sandwich with sauce or leftovers S - none D - 7-8 pm lasagne or tacos or sausage rice casserole or teriyaki chicken and rice or grilled meat/baked potato with tea with SF drink mixes. eats out 3-4 times a week Chipotle - Steak, white rice, black beans, s cream, cheese, corn tomatoes, chips, sweet tea Subway - 6 in wheat Nauruan parra veg sweet tea Red Lobster - shrimp scampi, 2 biscuits, occas Anshul salad, sweet tea [employer] [place] - chicken fingers, fries or smothered grilled chicken and cottage cheese with sweet tea S - none Fluids: sweet tea and tea with SF mixes, 3 days a week - sips large coffee mint mocha mix from 0830 -3, no water Bedtime - midnight Quality of diet: 24hr recall suggests somewhat unhealthy diet. Characterization of diet:Structured, increased consumption of sugar sweetened beverages, and skip meals. Supervisor Winter of impaired eating habits:emotion and stress causes her to eat out instead of planning healthy meals and food prepping. Not hungry, gets full easily, stays full for up to 6 hours. Eating Disorder no Cravings: salty, crunchy Sleep Duration: 6-7 hours. 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 Nonalcoholic fatty liver disease 10/23/2022 PAST SURGICAL HISTORY Procedure Laterality Date HYSTEROSCOPY removal of polyp IVF RETRIEVAL ANY METHOD FAMILY HISTORY Problem Relation Age of Onset Hypertension Mother Breast Cancer Mother 62 BRCA neg Obesity Mother Hypertension Father Obesity Father Polycystic Ovary Syndrome Sister Obesity Sister Polycystic Ovary Syndrome Sister Obesity Sister Stroke Maternal Grandmother Diabetes Maternal Grandfather Hypertension Maternal Grandfather Obesity Maternal Grandfather Chronic Kidney Disease Maternal Grandfather Obesity Paternal Grandmother Obesity Paternal Grandfather Cancer Maternal Aunt lung Diabetes Maternal Uncle Diabetes Maternal Uncle Hypertension Paternal Aunt Hypertension Paternal Uncle Hypertension Paternal Uncle Cancer Paternal Uncle pancreatic Hypertension Paternal Uncle Colon Cancer Paternal Uncle Coronary Artery Disease Paternal Uncle Social History Tobacco Use Smoking status: Never Smokeless tobacco: Never Vaping Use Vaping status: Never Used Substance Use Topics Alcohol use: Yes Comment: Social, not while Drug use: No AOM Medications: none Weight Promoting Medications: none Diet/weight loss History: Past weight loss attempts? commercial diets, self-directed, exercise program, dietitian, and anti-obesity medications Semaglutide (Ozempic) and Tirzepatide (Mounjaro). Semaglutide gave stomach pain and diarrhea, Tirzepatide was not effective and costly. Caloric restriction, Sole Trimmer, Exercise/increased activity, Low Carbohydrate diet, MyFitnessPal, Slimfast, Starvation, Weight watchers, and Optavia Recently - difficult to lose any weight Exercise: Regular exercise: no Strength/resistance exercise:no Barriers to regular exercise? no Work-related activity:Sedentary. 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 Current Contraception: none - male factor infertility Obesity ROS/ FHx GEN: Fatigue:yes CV: h/o palpitations/cardiac arrhythmia, Chest pain: no HTN: yes PULM: Asthma:no GI: GERD:yes - Prilosec ; Gallstones:no ; Fatty liver disease:Yes Pancreatitis: no MSK: Joint Pain:no : Nephrolithiasis: no Symptoms of PCOS: no NEURO: Migraines/ESPINOZA: yes 2/week ; H/o seizures: no Glaucoma:no; Cataracts no Symptoms of or History of pseudotumor cerebri:no Family or personal History of MEN2 or Medullary thyroid cancer: no PE BP 154/98 Pulse 97 Ht 150 cm (4' 11.06) Wt 77.1 kg (170 lb) LMP 09/17/2024 (Exact Date) SpO2 98% BMI 34.27 kg/m? Home BP 130's/87 Waist Circumference: 43.5 Neck Circumference: 14.5 GENERAL: Female in NAD. Central adiposity. SKIN: acanthosis nigricans no, Skin tags: yes Hirsutism: no HEENT: PERRL, No supraclavicular adiposity. No dorsal adiposity. RESPIRATORY: CBTA CARDIAC: RRR ABDOMEN: Small pannus; EXTREMITIES: peripheral edema: no Results: reviewed with the patient No visits with results within 3 Month(s) from this visit. Impression: Forest Ovalle is a 39 year old Female with Class II obesity (Body mass index is 34.27 kg/m?.) who has adolescence obesity with several periods of weight loss followed by weight gain . The causes of her obesity are multifactorial, biological, psychological and social and environmental. Specific factors include a genetic component related to a strong family of obesity, increased consumption of high calorie/process foods, irregular eating patterns , suboptimal physical activity, and post weight retention. She has few weight-related medical comorbidities which increase her cardiovascular mortality risk. There are additional metabolic obesity complications including hypertension. Other medical conditions as above. Regarding her lifestyle, as above, she has a few behavioral contributors ; her physical activity is non-existent. Overall, it is clear that her quality of life is mildly compromised by her weight. It is likely a combination of weight loss therapies will be needed. She appears motivated today. ASSESSMENT/PLAN: 1. Hypertension, essential - ICD9: 401.9, ICD10: I10 (primary diagnosis) - treated with labetalol and amlodipine - Home BP 130's/87 - benefits of weight loss discussed - Whole food balanced protein low-carb nutrition 2. GERD without esophagitis - ICD9: 530.81, ICD10: K21.9 - Discussed lifestyle modifications including losing weight, limiting caffeine, no meals three hours before sleep, and head of bed elevation - Omeprazole 40 mg - benefits of weight loss discussed - Whole food balanced protein low-carb nutrition 3. IFG (impaired fasting glucose) - ICD9: 790.21, ICD10: R73.01 - history - INSULIN, TOTAL, SERUM - HEMOGLOBIN A1C 4. Nonalcoholic fatty liver disease - ICD9: 571.8, ICD10: K76.0 - LIPID PANEL BASIC 5. Screening cholesterol level - ICD9: V77.91, ICD10: Z13.220 - LIPID PANEL BASIC 6. Screening for deficiency anemia - ICD9: V78.1, ICD10: Z13.0 - COMPLETE BLOOD COUNT 7. Screening for diabetes mellitus - ICD9: V77.1, ICD10: Z13.1 - INSULIN, TOTAL, SERUM - HEMOGLOBIN A1C - COMPREHENSIVE METABOLIC PANEL 8. Screening for metabolic disorder - ICD9: V77.99, ICD10: Z13.228 - COMPREHENSIVE METABOLIC PANEL 9. Class 1 obesity with serious comorbidity and body mass index (BMI) of 34.0 to 34.9 in adult, unspecified obesity type - ICD9: 278.00, V85.34, ICD10: E66.811, Z68.34 Plan: -- Based on the severity and resistance of the obesity/overweight with co-morbidities, I believe a combination of behavioral and possibly pharmacological intervention is the best and most appropriate penitentiary therapeutic option. - INSULIN, TOTAL, SERUM - HEMOGLOBIN A1C - COMPLETE BLOOD COUNT - LIPID PANEL BASIC - COMPREHENSIVE METABOLIC PANEL Supervisor Winter of impaired eating habits:emotion and stress causes her to eat out instead of planning healthy meals and food prepping. Not hungry, gets full easily, stays full for up to 6 hours.Given information on metformin ER and topiramate to review for dual treatment of IFG and migraine. -- We discussed several strategies to track food intake and increase mindfulness around eating while will decrease calorie intake. She was counseled on the following: Eating primarily whole foods. Limit carbs, especially processed carbs. Do not drink your calories 30 grams of protein for breakfast decreases your hunger during the day by up to 40 % Premier Protein or generic 30 gm protein 1 gm sugar Walk for 15 minutes immediately a meal. -- Encouraged the patient to improve her physical activity. Although cardiovascular exercise is most beneficial for weight loss initially, we discussed healthy muscle from a combination of resistance training and cardiovascular exercise is the best assistant terminal manager plan. An overall goal of 150-200 minutes per week of exercise has been effective in weight loss and maintenance. -- Reviewed that monitoring weight daily and food intake can have a positive impact on overall weight loss and maintenance of weight loss. Activity tracking can be used to stay on target for exercise however should not be used to reward oneself She understands that there can be limitations of pharmacotherapy due to contraindications, side effects and cost. Patient was told to contact her insurance company to see what AOMs and supervised behavioral medical appointments are currently covered. Patient understands she will have more success when following a healthy lifestyle. We reviewed continued use of online tracking of daily weights, food journal and if desired physical activity. We reviewed that during management she is to report any concerning side effects of any pharmacotherapy she is placed on. She understands that she will need routine follow up in the office. Prior to any virtual visits in the future she will need to check her Blood pressure, weight, and pulse. Prescription instructions reviewed with patient as applicable. Potential red flag symptoms discussed with the patient. Reviewed appropriate action plan to take if red flag symptoms occur. Patient agreeable to treatment plan. -- follow-up visit in 4-6 weeks for management of above interventions Jaclyn Barber CNP Advanced Education from the Obesity Medicine Association I spent a total of 77 minutes on the date of the service which included preparing to see the patient, [id number] patient care, completing clinical documentation, obtaining and/or reviewing separately obtained history, performing a medically appropriate examination, counseling and educating the patient/family/caregiver, and ordering medications, tests, or procedures. Jaclyn Barber, [email or web address].[email or web address] 10/02/2024 9:15 AM Addendum Weight Management: You have taken the initiative to become a healthier version of yourself and to decrease the risks that come with the diagnosis of obesity or being overweight. We are happy to help you along this journey but know this is a lifetime commitment to yourself. Losing just 3-10 % of your body weight can decrease your risks of many other serious diseases like diabetes, heart disease, osteoarthritis, hypertension, cancer and so many others. During this time you will have triumphs, setbacks and plateaus- your body will fight against you but we are here to give you the tools and the resources to continue to reach your goals. We recommend during this time that you track your weight daily or at least five times per week as well as tracking your nutrition. You may track your activity but do not use hitting your fitness goals as a reward system as this can derail your success. We recommend weekly physical activity of 150-200 min/week-although physical exercise, this will be especially important for weight maintenance. Exercise can have many other benefits including improving insulin resistance, improving balance, bone health, improving mental health and cardiovascular health. Do not feel overwhelmed - we will discuss this more at your visits. Our time will be limited with each visit but we will try to touch on factors that are important to you and to your overall goals. We will try to set a goal at the end of each visit and then decide on what we want to accomplish with your upcoming visits. On your After Visit Summary (AVS), we will provide you with information that may be useful during this journey so please remember to read the information given. Check your AVS a few days after your appointment because we may have added more information specifically for you. Remember that if you are placed on medications, they are tools that can help you succeed but you must put in the work. Your nutrition will be the main factor. There are medications that work well for some and not for others- so it may take time to find the right combination for your body's needs. Please remember that factors such as other health co-morbidities one might have, as well as insurance coverage, will play a factor in determining which medications you can take. Most of the newer medications that are all the craze ,injectables, may not be covered or will only be covered if you fail months of oral medications or have Type 2 diabetes so please be patient with the process. It would be beneficial for you to determine what your insurance covers as far as Anti-Obesity Medications (AOMs), Nutritional Counseling, behavioral intervention and weight loss surgery. Please call your health insurance prior to your first appointment and write down coverage for each of those therapies. Most importantly, remember that ultimately our goal is to help you get to a healthier weight which will decrease your overall health risks. We will work together as a team and try to reach your personalized goals as well. Follow-up appointments Please arrive to follow-up visits a minimum of 15 minutes prior to your appointment. Follow-up weight management visits can be virtual. You will need to report a current blood pressure, heart rate (pulse) and weight at the beginning of each virtual appointment so you will need to have a reliable BP cuff, either wrist or upper arm. If you need to reschedule your appointment time or switch from an in-office visit to a virtual visit or vice versa, you need to call our office as we have designated appointment slots. This should not be done on [email or web address] as you will not be scheduled appropriately and will need to be rescheduled.[phone] We appreciate that you have entrusted us with your health and know that we are committed to this process with you. Sincerely, Mariah Vasquez MD, HEMAL LACKEY AND Jaclyn Barber CNP Advanced Education from the Obesity Medicine Association Obesity Obesity is a disease that affects nearly one-third of the adult [place] population (approximately 60 million). The number of overweight and obese Americans has continued to increase since 1959, a trend that is not slowing down. Today, 64.5 percent of adult Americans (about 127 million) are categorized as being overweight or obese. Each year, obesity causes at least 300,000 excess deaths in the [place] and healthcare costs of [place] adults with obesity amount to approximately $100 billion. (AOA) Obesity is a complex, multi-factorial chronic disease involving: Environmental (social and cultural) The tendency toward obesity is a result of our environment: lack of physical activity along with high-calorie, low-cost foods. Home, work, school, and even the community can inhibit a healthy lifestyle. Genetic (Hereditary plays a large role in determining how susceptible people are to overweight and obesity). Genes also influence how the body bojorquez calories for energy and stores fat. Physiologic, metabolic, behavioral (eating too many calories while not getting enough exercise) and psychological components. It is the second leading cause of preventable in the [place] Behavioral changes brought on by economic development, modernization and urbanization have been linked to the rise in global obesity. Calculating BMI Body Mass Index (BMI) is a measurement tool used to determine excess body weight. Overweight is defined as a BMI of 25 or more, obesity is 30 or more, and severe obesity is 40 or more. You can visit www.nhlbi.nih.gov to estimate your BMI. Obesity Related Health Conditions The morbidity and mortality risk from being overweight is proportional to its degree. Individuals with morbid obesity, therefore, have the highest risk for developing numerous illnesses that often reduce mobility and quality of life due to their excess weight. In particular, type 2 diabetes, gallbladder disease and osteoarthritis have been found to increase concurrently with higher BMI. Premature , a 20-year shorter life span, has also been found in individuals with morbid obesity. All of the systems that make the body function are affected by morbid obesity. Type 2 diabetes Gallbladder disease and gallstones Liver disease Osteoarthritis, a disease in which the joints deteriorate. This is possibly the result of excess weight on the joints. Gout, another disease affecting the joints Pulmonary (breathing) problems, including sleep apnea in which a person can stop breathing for a short time during sleep Reproductive problems in women, including menstrual irregularities and infertility Gastroesophageal reflux/heartburn Hypertension Heart Disease Depression Psychological disorders/social impairments Urinary Stress Incontinence Obesity is also linked to higher rates of certain types of cancer. Obese men are more likely than non-obese men to from cancer of the colon, rectum, or prostate. Obese women are more likely than non-obese women to from cancer of the gallbladder, breast, uterus, cervix, or ovaries https://my.[email or web address]/diseases/[email or web address]-novyxd-ahpxswcdup-drbuphe-- education - Eat primarily whole foods. Limit carbs, especially processed carbs. Eat - Meat, vegetables and fruits with skin on if possible, eggs, cheese. - Do not drink your calories - 30 grams of protein for your first meal of the day decreases your hunger during the day by up to 40 %. Options include: Premier Protein or generic 30 gm protein 1 gm sugar or 5 eggs or 2-3 eggs and some unbreaded meat and/or cheese. No fruit, vegetables, bread, grain, yogurt, Smoothies, etc. - Walk for 15 minutes immediately after meal. A Short Walk After Meals Is All It Takes to Lower Blood Sugar Researchers studying older adults with pre-diabetes found that 15 minutes of hjir-hu-msxsbblr exercise after every meal curbed risky blood sugar spikes all day. Seniors are more prone to developing diabetes, but a little exercise could make a big difference. A study published today in Diabetes Care found that three short walks each day after meals were as effective at reducing blood sugar over 24 hours as a single 45-minute walk at the same moderate pace. Even better, taking an evening constitutional was found to be much more effective at lowering blood sugar following supper. The evening meal, often the largest of the day, can significantly raise 24-hour glucose levels. The innovative exercise science study was conducted at the Clinical Exercise Physiology Laboratory at the [facility] ([facility]) using whole room calorimeters. Ludy Ruff, Ph.D., chair of the [facility] Department of Exercise Science, led the study. ?These findings are good news for people in their 70s and 80s who may feel more capable of engaging in intermittent physical activity on a daily basis,? Speedy said in a press release. Putting Humans in a Box to Measure Their Energy Use The whole room calorimeter (WRM), which looks like a very small hotel room, is a controlled-air environment for human study that allows scientists to calculate a person?s energy expenditure by testing samples of air. The balance of oxygen consumed and carbon dioxide produced varies according to the activity level of the person in the room. The WRM also measures the body?s use of different food fuels, such as carbohydrates, proteins, and fats. The 10 study participants spent three 48-hour periods in the small calorimeter rooms. Each room was equipped with a bed, toilet, sink, treadmill, television, and computer, leaving little room to move around. Participants ate standardized meals, and their blood sugar levels were monitored continuously using blood tests. The first day in the WRM served as a control period, with no exercise. On the second day, participants either walked at a moderate pace on the treadmill for 15 minutes after each meal, or for 45 minutes in either the late morning or before supper. The researchers observed that the evening post-meal walk was the most effective in lowering blood sugar levels for a full 24 hours. 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 How Age Affects Insulin Resistance An estimated 79 million Americans have pre-diabetes, according to the National Diabetes Education Program run by the National Institutes of Health. But many people have no idea they are at risk. According to Speedy, older people may be particularly susceptible to poor blood sugar control after meals because inactive muscles contribute to insulin resistance. The problem is compounded by slow or low insulin secretion by the pancreas, which often occurs as the body ages. ?Post-meal high blood sugar is a benson risk factor in the progression from impaired glucose tolerance (pre-diabetes) to type 2 diabetes and cardiovascular disease,? Speedy explained. Other studies have suggested that weight loss and exercise can prevent type 2 diabetes. The authors say theirs is the first study to examine short bouts of physical activity timed around the risky period following meals--a time when blood sugar can rise rapidly and potentially cause damage to internal organs and blood vessels. ?The muscle contractions connected with short walks were immediately effective in blunting the potentially damaging elevations in post-meal blood sugar commonly observed in older people,? Speedy said. If the findings of this small study hold up to further testing, it could lead to an inexpensive prevention strategy for pre-diabetes, which can develop over time into type 2 diabetes. Back in the day, it was ?finnegan? to take a morning, noon, and evening walk. The time has come to get up from the table, tie on those walking shoes, and take a little stroll around the block. https://www.[employer]/health-news/ipysh-byqxniy-krapl-gnfdw-qu-shrbhfb-blo- eo-pqldc-zybtui-960919 METFORMIN Dosing -- Begin Metformin 500 ER mg with dinner daily x 1 week. If you are experiencing any GI side effects, do not increase dose for 1-4 weeks. If tolerating, you can increase to 2 tablets with dinner daily. Taking the medication with food will help. -- if you experience any GI upset (Nausea, diarrhea, bloating, gas) you can go back to 1 tablet or hold the medication until it resolves. Once you are tolerating the medication you can try increasing it again. -- we can discuss increasing the dose further at your follow up visit. -- Metformin can interfere with the absorption of B12 in your food, please add a B12 1,000-2,400 mcg supplement and I suggest having it checked every 1-2 years Using Metformin for weight loss: Metformin helps to lower blood glucose levels by reducing the amount of glucose produced and released by the liver, and by increasing insulin sensitivity. It has now been proven to prevent or delay diabetes. Metformin and Type 2 Diabetes Prevention Diabetes Spectrum (diabetesjournals.org) Large cohort studies have shown weight loss benefits associated with metformin therapy. Emerging evidence suggests that metformin-associated weight loss is due to modulation of hypothalamic appetite-regulatory centers, alteration in the gut microbiome, and reversal of consequences of aging. Metformin is also being explored in the management of obesity?s sequelae such as hepatic steatosis, obstructive sleep apnea and osteoarthritis. Effectiveness of metformin on weight loss in non-diabetic individuals with obesity - PubMed (nih.gov) Is metformin a wonder drug? - [facility] Common side effects of this medication include nausea, changes in bowel habits, abdominal discomfort, and flatulence. Taking the medication with food will help. Side effects also typically get better with time. Rarely, a severe side effect called lactic acidosis can occur. If you experience malaise, muscle aches, difficulty breathing, or severe abdominal pain, please seek immediate medical attention. When to Take Extended-Release Metformin Metformin HCL is metabolized slowly, over 24 hours, which helps reduce GI side effects. Metformin extended-release is often a good option for people who experience adverse GI symptoms with standard metformin. Metformin HCL should be taken at night, with food. Angy Lazo MD, clinical director of adult diabetes at [facility], explains why timing metformin HCL with the evening meal is so important. In normal physiology, a person's liver often makes glucose overnight, she says. So, it's not uncommon for a person to go to bed with a good blood glucose level and wake up with a higher one because their liver has been releasing sugar [all night]. Metformin turns off or slows down this process, so it can be more effective at night in treating fasting high blood sugar. https://www.[employer].reQall/article/144279-btsm-um-f-kcvd-fcdlwoxlk-ntl-jt-kokf-- ywybgof-ij-wwuyx/ Metformin: Patient drug information Warning Rarely, metformin may cause too much lactic acid in the blood (lactic acidosis). The risk is higher in people who have kidney problems, liver problems, heart failure, use alcohol, or take other drugs like topiramate. The risk is also higher in people who are 65 or older and in people who are having surgery, an exam or test with contrast, or other procedures. If lactic acidosis happens, it can lead to other health problems and can be deadly. Kidney tests may be done while taking this drug. Do not take this drug if you have a very bad infection, low oxygen, or a lot of fluid loss (dehydration). Call your doctor right away if you have signs of too much lactic acid in the blood (lactic acidosis) like fast breathing, fast or slow heartbeat, a heartbeat that does not feel normal, very bad upset stomach or throwing up, feeling very sleepy, shortness of breath, feeling very tired or weak, very bad dizziness, feeling cold, or muscle pain or cramps. What is this drug used for? It is used to lower blood sugar in patients with high blood sugar (diabetes), treatment for PCOS, What do I need to tell my doctor BEFORE I take this drug? If you are allergic to this drug; any part of this drug; or any other drugs, foods, or substances. Tell your doctor about the allergy and what signs you had. If you have any of these health problems: Acidic blood problem, kidney disease, or liver disease. If you have had a recent heart attack or stroke. If you are not able to eat or drink like normal, including before certain procedures or surgery. If you are having an exam or test with contrast or have had one within the past 48 hours, talk with your doctor. This is not a list of all drugs or health problems that interact with this drug. Tell your doctor and pharmacist about all of your drugs (prescription or OTC, natural products, vitamins) and health problems. You must check to make sure that it is safe for you to take this drug with all of your drugs and health problems. Do not start, stop, or change the dose of any drug without checking with your doctor. What are some things I need to know or do while I take this drug? All products: Tell all of your health care providers that you take this drug. This includes your doctors, nurses, pharmacists, and dentists. Talk with your doctor before you drink alcohol. Do not drive if your blood sugar has been low. There is a greater chance of you having a crash. Check your blood sugar as you have been told by your doctor. Have blood work checked as you have been told by the doctor. Talk with the doctor. It may be harder to control blood sugar during times of stress such as fever, infection, injury, or surgery. A change in physical activity, exercise, or diet may also affect blood sugar. Follow the diet and workout plan that your doctor told you about. If diarrhea happens or you are throwing up, call your doctor. You will need to drink more fluids to keep from losing too much fluid. Be careful in hot weather or while being active. Drink lots of fluids to stop fluid loss. Long-term treatment with metformin may lead to low vitamin B-12 levels. If you have ever had low vitamin B-12 levels, talk with your doctor. If you are 65 or older, use this drug with care. You could have more side effects. There is a chance of in people of childbearing age who have not been ovulating. If you want to avoid , use control while taking this drug. Tell your doctor if you are , plan on getting , or are breast-feeding. You will need to talk about the benefits and risks to you and the baby. Extended-release tablets: You may see something that looks like the tablet in your stool. This is normal and not a cause for concern. If you have questions, talk with your doctor. What are some side effects that I need to call my doctor about right away? WARNING/CAUTION: Even though it may be rare, some people may have very bad and sometimes deadly side effects when taking a drug. Tell your doctor or get medical help right away if you have any of the following signs or symptoms that may be related to a very bad side effect: Signs of an allergic reaction, like rash; hives; itching; red, swollen, blistered, or peeling skin with or without fever; wheezing; tightness in the chest or throat; trouble breathing, swallowing, or talking; unusual hoarseness; or swelling of the mouth, face, lips, tongue, or throat. It is common to have stomach problems like upset stomach, throwing up, or diarrhea when you start taking this drug. If you have stomach problems later during treatment, call your doctor right away. This may be a sign of an acid health problem in the blood (lactic acidosis). Low blood sugar can happen. The chance may be raised when this drug is used with other drugs for diabetes. Signs may be dizziness, headache, feeling sleepy or weak, shaking, fast heartbeat, confusion, hunger, or sweating. Call your doctor right away if you have any of these signs. Follow what you have been told to do for low blood sugar. This may include taking glucose tablets, liquid glucose, or some fruit juices. What are some other side effects of this drug? All drugs may cause side effects. However, many people have no side effects or only have minor side effects. Call your doctor or get medical help if any of these side effects or any other side effects bother you or do not go away: Stomach pain or heartburn. Gas. Diarrhea, upset stomach, or throwing up. Feeling tired or weak. Headache. These are not all of the side effects that may occur. If you have questions about side effects, call your doctor. Call your doctor for medical advice about side effects. You may report side effects to your national health agency. How is this drug best taken? Use this drug as ordered by your doctor. Read all information given to you. Follow all instructions closely. All products: Take with meals. Keep taking this drug as you have been told by your doctor or other health care provider, even if you feel well. Extended-release tablets: Take with the evening meal if taking once daily. Swallow whole. Do not chew, break, or crush. If you have trouble swallowing, talk with your doctor. TOPIRAMATE -- Take 25mg (1/2 tablet) daily x 2 weeks -- Then increase to 50mg daily after the initial two weeks so long as you are not having any side effects. -- You can take the tablet it at night at first (because of potential sleepiness side effects), but then you can take earlier around dinner after you have started the medication for a few days. You also may be able to take it in the morning if easier. -- We may increase the dose to 75mg a few weeks later if there is no change with 50mg, Typically the maximum medication dose would be 150mg daily but rarely would we need to titrate medication dose that high. -- The exact mechanism of topiramate on energy balance regulation is not clearly understood. Topiramate affects body mass index, fasting ppxdlmv-tr-trjuuiy ratio, and serum leptin and cortisol levels. It has shown to improve hypothalamic insulin and leptin signaling and action and reduce obesity in mice. These changes may be benson factors in weight loss due to topiramate. If at any point you are feeling the effects of the medication you can stay at that dose or if you experience side effects you can decrease it to the previous dose. -- Please see the handout to review the potential side effects and to explain this further -- Please let me know if you experience any changes in your vision, worsening depression or mood problems, or an increase in suicidal thoughts or behaviors. --This medication should NOT be combined with alcohol. Risks of drinking alcohol while taking this medication include mental and psychological side effects, including confusion, dizziness, drowsiness, and depression. -- There is an increased risk for oral clefts when topiramate is used in the first trimester of . -- There is a possible decrease in contraceptive efficacy when using estrogen-containing control with topiramate, please use a back up form of control such as condoms and monitor for throughout treatment. -- If you decide that you would like to get or if you have any of these side effects please let me know and we can safely discontinue the medication. - If you are on loop diuretic or thiazide diuretic we will want to monitor your potassium level, especially if you have a history of low potassium. - It is important to taper off of this medication when we finished with treatment, typically decreasing the dose 25 mg a week. Stopping Topiramate abruptly can cause irritability, anxiety and difficulty concentrating. Topiramate (toe pyre? a mate) What are the common names? Topamax Why is this medication prescribed? Topiramate is an anti-epileptic medications which has been approved by the FDA for patients 10 years of age or older for treatment of seizures. However, topiramate also has other uses such as the treatment of migraines. It also causes decrease in appetite and weight loss. The mechanism of weight loss is thought to be through inhibition of mitochondrial enzymes involved in energy expenditure and metabolism. Topiramate may work by helping you feel less hungry, less ?driven? to eat, more satisfied with less food. What special precautions should I follow? Before having topiramate prescribed, tell your doctor and pharmacist: If you have allergies to any component of topiramate If you are , plan to become , are breast-feeding, or if you become while taking topiramate What are the warnings and precautions for this medication? Immediately discontinue the medicine and seek medical help if you have severe cognitive/neuropsychiatric adverse symptoms or eye symptoms. Cognitive/neuropsychiatric adverse events: symptoms may include confusion, psychomotor slowing, difficulty with concentration/attention, difficulty with memory, speech or language problems, particularily word-finding difficulties, somnolence or fatigue Acute myopia and secondary angle closure glaucoma, usually within 1 month of starting treatment: symptoms may include blurred vision, redness and/or pain in the eye Oligohydrosis (decrease sweating) and hyperthermia (elevation in body temperature) Increase in suicidal behavior or ideation Metabolic acidosis, non-gap hyperchloremic (decreased serum bicarbonate below normal levels) resulting in hyperventilation or fatigue Kidney stones Paresthesias (numbness or tingling in hands or feet) Ataxia Dizziness Increase in urination frequency Drug interactions. Use of monamine oxidase inhibitors (MAOI?s), valproic acid, Caution use with dehydration or diarrheal illness, hepatic or renal impairment In case of emergency/overdose In case of overdose, call your local poison control center at or call local emergency services at [phone]. What other information should I know? Keep all appointments with your doctor and the laboratory. Do not let anyone else take your medication. Topiramate use needs to be monitored closely. Prescriptions may be refilled only a limited number of times. Keep a written list of all of your prescription and nonprescription (gveg-wcm-qfuwoes) medicines, in addition to vitamins, minerals, or other dietary supplements. How should I monitor while on this medication? Your doctor will check your baseline kidney function and electrolytes prior to starting this medication, then periodically. Continue to improve your dietary and physical activity habits as the combination works best while on this medication. Start out by taking the medication at bedtime as it can cause fatigue and sleepiness. Be sure to eat regular meals. Less hunger does not make it appropriate to skip meals. Make sure to have an eye exam, including the pressure in your eyes (intra-ocular pressure), once a year. What should I do if I forget a dose? Skip the missed dose and continue your regular dosing schedule the next day. Do not take a double dose to make up for a missed one. Sources Pubmed Health: http://www.ncbi.nlm.nih.gov/pubmedhealth/LDG2835425/ Drugs.com http://www.drugs.com/pro/topiramate.html Allergies As of Date: 10/02/2024 (No Known Allergies) Date Reviewed: 10/02/2024 Reviewed by: Jaclyn Barber APRN.TEACHER EDUCATION DIRECTOR - Fully Assessed Reason for Visit: Weight Management [3933] Primary Visit Diagnosis:Hypertension, essential [I10] Other Visit Diagnoses:GERD without esophagitis [K21.9] IFG (impaired fasting glucose) [R73.01] Nonalcoholic fatty liver disease [K76.0] Screening cholesterol level [Z13.220] Screening for deficiency anemia [Z13.0] Screening for diabetes mellitus [Z13.1] Screening for metabolic disorder [Z13.228] Class 1 obesity with serious comorbidity and body mass index (BMI) of 34.0 to 34.9 in adult, unspecified obesity type [E66.811, Z68.34] Order(s):INSULIN, TOTAL, SERUM [SQINSULN] Order #: [id number] FUTURE HEMOGLOBIN A1C [VEZKT8G] Order #: [id number] FUTURE COMPLETE BLOOD COUNT [SQCBC] Order #: [id number] FUTURE LIPID PANEL BASIC [SQLIPB] Order #: [id number] FUTURE COMPREHENSIVE METABOLIC PANEL [SQCMP] Order #: [id number] FUTURE Prescriptions as of 10/02/2024 - ketoconazole (NIZORAL) 2 % shampoo WASH THE SCALP ONCE EVERY OTHER WASH, LETTING IT LATHER FOR 3-5 MINUTES BEFORE RINSING - amLODIPine (NORVASC) 10 mg tablet Take 1 tablet by mouth once daily. - labetalol (TRANDATE) 200 mg tablet Take 1 tablet by mouth three times daily. - omeprazole (PRILOSEC) 40 mg capsule Take 1 capsule by mouth twice daily before meals. 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 We are happy to help you along this journey but know this is a lifetime commitment to yourself. Losing just 3-10 % of your body weight can decrease your risks of many other serious diseases like diabetes, heart disease, osteoarthritis, hypertension, cancer and so many others. During this time you will have triumphs, setbacks and plateaus- your body will fight against you but we are here to give you the tools and the resources to continue to reach your goals. We recommend during this time that you track your weight daily or at least five times per week as well as tracking your nutrition. You may track your activity but do not use hitting your fitness goals as a reward system as this can derail your success. We recommend weekly physical activity of 150-200 min/week-although physical exercise, this will be especially important for weight maintenance. Exercise can have many other benefits including improving insulin resistance, improving balance, bone health, improving mental health and cardiovascular health. Do not feel overwhelmed - we will discuss this more at your visits. Our time will be limited with each visit but we will try to touch on factors that are important to you and to your overall goals. We will try to set a goal at the end of each visit and then decide on what we want to accomplish with your upcoming visits. On your After Visit Summary (AVS), we will provide you with information that may be useful during this journey so please remember to read the information given. Check your AVS a few days after your appointment because we may have added more information specifically for you. Remember that if you are placed on medications, they are tools that can help you succeed but you must put in the work. Your nutrition will be the main factor. There are medications that work well for some and not for others- so it may take time to find the right combination for your body's needs. Please remember that factors such as other health co-morbidities one might have, as well as insurance coverage, will play a factor in determining which medications you can take. Most of the newer medications that are all the craze ,injectables, may not be covered or will only be covered if you fail months of oral medications or have Type 2 diabetes so please be patient with the process. It would be beneficial for you to determine what your insurance covers as far as Anti-Obesity Medications (AOMs), Nutritional Counseling, behavioral intervention and weight loss surgery. Please call your health insurance prior to your first appointment and write down coverage for each of those therapies. Most importantly, remember that ultimately our goal is to help you get to a healthier weight which will decrease your overall health risks. We will work together as a team and try to reach your personalized goals as well. Follow-up appointments Please arrive to follow-up visits a minimum of 15 minutes prior to your appointment. Follow-up weight management visits can be virtual. You will need to report a current blood pressure, heart rate (pulse) and weight at the beginning of each virtual appointment so you will need to have a reliable BP cuff, either wrist or upper arm. If you need to reschedule your appointment time or switch from an in-office visit to a virtual visit or vice versa, you need to call our office as we have designated appointment slots. This should not be done on [email or web address] as you will not be scheduled appropriately and will need to be rescheduled.[phone] We appreciate that you have entrusted us with your health and know that we are committed to this process with you. Sincerely, Mariah Vasquez MD, HEMAL LACKEY AND Jaclyn Barber CNP Advanced Education from the Obesity Medicine Association Obesity Obesity is a disease that affects nearly one-third of the adult [place] population (approximately 60 million). The number of overweight and obese Americans has continued to increase since 1960, a trend that is not slowing down. Today, 64.5 percent of adult Americans (about 127 million) are categorized as being overweight or obese. Each year, obesity causes at least 300,000 excess deaths in the [place] and healthcare costs of [place] adults with obesity amount to approximately $100 billion. (AOA) Obesity is a complex, multi-factorial chronic disease involving: Environmental (social and cultural) The tendency toward obesity is a result of our environment: lack of physical activity along with high-calorie, low-cost foods. Home, work, school, and even the community can inhibit a healthy lifestyle. Genetic (Hereditary plays a large role in determining how susceptible people are to overweight and obesity). Genes also influence how the body bojorquez calories for energy and stores fat. Physiologic, metabolic, behavioral (eating too many calories while not getting enough exercise) and psychological components. It is the second leading cause of preventable in the [place] Behavioral changes brought on by economic development, modernization and urbanization have been linked to the rise in global obesity. Calculating BMI Body Mass Index (BMI) is a measurement tool used to determine excess body weight. Overweight is defined as a BMI of 25 or more, obesity is 30 or more, and severe obesity is 40 or more. You can visit www.nhlbi.nih.gov to estimate your BMI. Obesity Related Health Conditions The morbidity and mortality risk from being overweight is proportional to its degree. Individuals with morbid obesity, therefore, have the highest risk for developing numerous illnesses that often reduce mobility and quality of life due to their excess weight. In particular, type 2 diabetes, gallbladder disease and osteoarthritis have been found to increase concurrently with higher BMI. Premature , a 20-year shorter life span, has also been found in individuals with morbid obesity. All of the systems that make the body function are affected by morbid obesity. Type 2 diabetes Gallbladder disease and gallstones Liver disease Osteoarthritis, a disease in which the joints deteriorate. This is possibly the result of excess weight on the joints. Gout, another disease affecting the joints Pulmonary (breathing) problems, including sleep apnea in which a person can stop breathing for a short time during sleep Reproductive problems in women, including menstrual irregularities and infertility Gastroesophageal reflux/heartburn Hypertension Heart Disease Depression Psychological disorders/social impairments Urinary Stress Incontinence Obesity is also linked to higher rates of certain types of cancer. Obese men are more likely than non-obese men to from cancer of the colon, rectum, or prostate. Obese women are more likely than non-obese women to from cancer of the gallbladder, breast, uterus, cervix, or ovaries [email or web address]/[email or web address]-gdgqxs-ltxujtswyn-gksx ent-education - Eat primarily whole foods. Limit carbs, especially processed carbs. Eat - Meat, vegetables and fruits with skin on if possible, eggs, cheese. - Do not drink your calories - 30 grams of protein for your first meal of the day decreases your hunger during the day by up to 40 %. Options include: Premier Protein or generic 30 gm protein 1 gm sugar or 5 eggs or 2-3 eggs and some unbreaded meat and/or cheese. No fruit, vegetables, bread, grain, yogurt, Smoothies, etc. - Walk for 15 minutes immediately after meal. A Short Walk After Meals Is All It Takes to Lower Blood Sugar Researchers studying older adults with pre-diabetes found that 15 minutes of kbvn-kv-dsikyfdj exercise after every meal curbed risky blood sugar spikes all day. Seniors are more prone to developing diabetes, but a little exercise could make a big difference. A study published today in Diabetes Care found that three short walks each day after meals were as effective at reducing blood sugar over 24 hours as a single 45-minute walk at the same moderate pace. Even better, taking an evening constitutional was found to be much more effective at lowering blood sugar following supper. The evening meal, often the largest of the day, can significantly raise 24-hour glucose levels. The innovative exercise science study was conducted at the Clinical Exercise Physiology Laboratory at the [facility] ([facility]) using whole room calorimeters. Ludy Ruff, Ph.D., chair of the [facility] Department of Exercise Science, led the study. ?These findings are good news for people in their 70s and 80s who may feel more capable of engaging in intermittent physical activity on a daily basis,? Speedy said in a press release. Putting Humans in a Box to Measure Their Energy Use The whole room calorimeter (WRM), which looks like a very small hotel room, is a controlled-air environment for human study that allows scientists to calculate a person?s energy expenditure by testing samples of air. The balance of oxygen consumed and carbon dioxide produced varies according to the activity level of the person in the room. The WRM also measures the body?s use of different food fuels, such as carbohydrates, proteins, and fats. The 10 study participants spent three 48-hour periods in the small calorimeter rooms. Each room was equipped with a bed, toilet, sink, treadmill, television, and computer, leaving little room to move around. Participants ate standardized meals, and their blood sugar levels were monitored continuously using blood tests. The first day in the [facility] served as a control period, with no exercise. On the second day, participants either walked at a moderate pace on the treadmill for 15 minutes after each meal, or for 45 minutes in either the late morning or before supper. The researchers observed that the evening post-meal walk was the most effective in lowering blood sugar levels for a full 24 hours. 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 How Age Affects Insulin Resistance An estimated 79 million Americans have pre-diabetes, according to the National Diabetes Education Program run by the National Institutes of Health. But many people have no idea they are at risk. According to Speedy, older people may be particularly susceptible to poor blood sugar control after meals because inactive muscles contribute to insulin resistance. The problem is compounded by slow or low insulin secretion by the pancreas, which often occurs as the body ages. ?Post-meal high blood sugar is a benson risk factor in the progression from impaired glucose tolerance (pre-diabetes) to type 2 diabetes and cardiovascular disease,? Speedy explained. Other studies have suggested that weight loss and exercise can prevent type 2 diabetes. The authors say theirs is the first study to examine short bouts of physical activity timed around the risky period following meals--a time when blood sugar can rise rapidly and potentially cause damage to internal organs and blood vessels. ?The muscle contractions connected with short walks were immediately effective in blunting the potentially damaging elevations in post-meal blood sugar commonly observed in older people,? Speedy said. If the findings of this small study hold up to further testing, it could lead to an inexpensive prevention strategy for pre-diabetes, which can develop over time into type 2 diabetes. Back in the day, it was ?de brian? to take a morning, noon, and evening walk. The time has come to get up from the table, tie on those walking shoes, and take a little stroll around the block. https://www.[employer].reQall/health-news/wxssi-yuhbfec-wridm-llwtw-jo-votuzhi -duwtn-xfnoy-dchovu-[email or web address] METFORMIN Dosing -- Begin Metformin 500 ER mg with dinner daily x 1 week. If you are experiencing any GI side effects, do not increase dose for 1-4 weeks. If tolerating, you can increase to 2 tablets with dinner daily. Taking the medication with food will help. -- if you experience any GI upset (Nausea, diarrhea, bloating, gas) you can go back to 1 tablet or hold the medication until it resolves. Once you are tolerating the medication you can try increasing it again. -- we can discuss increasing the dose further at your follow up visit. -- Metformin can interfere with the absorption of B12 in your food, please add a B12 1,000-2,400 mcg supplement and I suggest having it checked every 1-2 years Using Metformin for weight loss: Metformin helps to lower blood glucose levels by reducing the amount of glucose produced and released by the liver, and by increasing insulin sensitivity. It has now been proven to prevent or delay diabetes. Metformin and Type 2 Diabetes Prevention Diabetes Spectrum (diabetesjournals.org) Large cohort studies have shown weight loss benefits associated with metformin therapy. Emerging evidence suggests that metformin-associated weight loss is due to modulation of hypothalamic appetite-regulatory centers, alteration in the gut microbiome, and reversal of consequences of aging. Metformin is also being explored in the management of obesity?s sequelae such as hepatic steatosis, obstructive sleep apnea and osteoarthritis. Effectiveness of metformin on weight loss in non-diabetic individuals with obesity - PubMed (nih.gov) Is metformin a wonder drug? - [facility] Common side effects of this medication include nausea, changes in bowel habits, abdominal discomfort, and flatulence. Taking the medication with food will help. Side effects also typically get better with time. Rarely, a severe side effect called lactic acidosis can occur. If you experience malaise, muscle aches, difficulty breathing, or severe abdominal pain, please seek immediate medical attention. When to Take Extended-Release Metformin Metformin HCL is metabolized slowly, over 24 hours, which helps reduce GI side effects. Metformin extended-release is often a good option for people who experience adverse GI symptoms with standard metformin. Metformin HCL should be taken at night, with food. Angy Lazo MD, clinical director of adult diabetes at [facility], explains why timing metformin HCL with the evening meal is so important. In normal physiology, a person's liver often makes glucose overnight, she says. So, it's not uncommon for a person to go to bed with a good blood glucose level and wake up with a higher one because their liver has been releasing sugar [all night]. Metformin turns off or slows down this process, so it can be more effective at night in treating fasting high blood sugar. https://www.[employer].reQall/article/399401-bxcs-um-t-zbsy-hyuidjxhv-msx-nl-h aeo-ikgtguw-lz-night/ Metformin: Patient drug information Warning Rarely, metformin may cause too much lactic acid in the blood (lactic acidosis). The risk is higher in people who have kidney problems, liver problems, heart failure, use alcohol, or take other drugs like topiramate. The risk is also higher in people who are 65 or older and in people who are having surgery, an exam or test with contrast, or other procedures. If lactic acidosis happens, it can lead to other health problems and can be deadly. Kidney tests may be done while taking this drug. Do not take this drug if you have a very bad infection, low oxygen, or a lot of fluid loss (dehydration). Call your doctor right away if you have signs of too much lactic acid in the blood (lactic acidosis) like fast breathing, fast or slow heartbeat, a heartbeat that does not feel normal, very bad upset stomach or throwing up, feeling very sleepy, shortness of breath, feeling very tired or weak, very bad dizziness, feeling cold, or muscle pain or cramps. What is this drug used for? It is used to lower blood sugar in patients with high blood sugar (diabetes), treatment for PCOS, What do I need to tell my doctor BEFORE I take this drug? If you are allergic to this drug; any part of this drug; or any other drugs, foods, or substances. Tell your doctor about the allergy and what signs you had. If you have any of these health problems: Acidic blood problem, kidney disease, or liver disease. If you have had a recent heart attack or stroke. If you are not able to eat or drink like normal, including before certain procedures or surgery. If you are having an exam or test with contrast or have had one within the past 48 hours, talk with your doctor. This is not a list of all drugs or health problems that interact with this drug. Tell your doctor and pharmacist about all of your drugs (prescription or OTC, natural products, vitamins) and health problems. You must check to make sure that it is safe for you to take this drug with all of your drugs and health problems. Do not start, stop, or change the dose of any drug without checking with your doctor. What are some things I need to know or do while I take this drug? All products: Tell all of your health care providers that you take this drug. This includes your doctors, nurses, pharmacists, and dentists. Talk with your doctor before you drink alcohol. Do not drive if your blood sugar has been low. There is a greater chance of you having a crash. Check your blood sugar as you have been told by your doctor. Have blood work checked as you have been told by the doctor. Talk with the doctor. It may be harder to control blood sugar during times of stress such as fever, infection, injury, or surgery. A change in physical activity, exercise, or diet may also affect blood sugar. Follow the diet and workout plan that your doctor told you about. If diarrhea happens or you are throwing up, call your doctor. You will need to drink more fluids to keep from losing too much fluid. Be careful in hot weather or while being active. Drink lots of fluids to stop fluid loss. Long-term treatment with metformin may lead to low vitamin B-12 levels. If you have ever had low vitamin B-12 levels, talk with your doctor. If you are 65 or older, use this drug with care. You could have more side effects. There is a chance of in people of childbearing age who have not been ovulating. If you want to avoid , use control while taking this drug. Tell your doctor if you are , plan on getting , or are breast-feeding. You will need to talk about the benefits and risks to you and the baby. Extended-release tablets: You may see something that looks like the tablet in your stool. This is normal and not a cause for concern. If you have questions, talk with your doctor. What are some side effects that I need to call my doctor about right away? WARNING/CAUTION: Even though it may be rare, some people may have very bad and sometimes deadly side effects when taking a drug. Tell your doctor or get medical help right away if you have any of the following signs or symptoms that may be related to a very bad side effect: Signs of an allergic reaction, like rash; hives; itching; red, swollen, blistered, or peeling skin with or without fever; wheezing; tightness in the chest or throat; trouble breathing, swallowing, or talking; unusual hoarseness; or swelling of the mouth, face, lips, tongue, or throat. It is common to have stomach problems like upset stomach, throwing up, or diarrhea when you start taking this drug. If you have stomach problems later during treatment, call your doctor right away. This may be a sign of an acid health problem in the blood (lactic acidosis). Low blood sugar can happen. The chance may be raised when this drug is used with other drugs for diabetes. Signs may be dizziness, headache, feeling sleepy or weak, shaking, fast heartbeat, confusion, hunger, or sweating. Call your doctor right away if you have any of these signs. Follow what you have been told to do for low blood sugar. This may include taking glucose tablets, liquid glucose, or some fruit juices. What are some other side effects of this drug? All drugs may cause side effects. However, many people have no side effects or only have minor side effects. Call your doctor or get medical help if any of these side effects or any other side effects bother you or do not go away: Stomach pain or heartburn. Gas. Diarrhea, upset stomach, or throwing up. Feeling tired or weak. Headache. These are not all of the side effects that may occur. If you have questions about side effects, call your doctor. Call your doctor for medical advice about side effects. You may report side effects to your national health agency. How is this drug best taken? Use this drug as ordered by your doctor. Read all information given to you. Follow all instructions closely. All products: Take with meals. Keep taking this drug as you have been told by your doctor or other health care provider, even if you feel well. Extended-release tablets: Take with the evening meal if taking once daily. Swallow whole. Do not chew, break, or crush. If you have trouble swallowing, talk with your doctor. TOPIRAMATE -- Take 25mg (1/2 tablet) daily x 2 weeks -- Then increase to 50mg daily after the initial two weeks so long as you are not having any side effects. -- You can take the tablet it at night at first (because of potential sleepiness side effects), but then you can take earlier around dinner after you have started the medication for a few days. You also may be able to take it in the morning if easier. -- We may increase the dose to 75mg a few weeks later if there is no change with 50mg, Typically the maximum medication dose would be 150mg daily but rarely would we need to titrate medication dose that high. -- The exact mechanism of topiramate on energy balance regulation is not clearly understood. Topiramate affects body mass index, fasting fzabouq-zz-rilywlk ratio, and serum leptin and cortisol levels. It has shown to improve hypothalamic insulin and leptin signaling and action and reduce obesity in mice. These changes may be benson factors in weight loss due to topiramate. If at any point you are feeling the effects of the medication you can stay at that dose or if you experience side effects you can decrease it to the previous dose. -- Please see the handout to review the potential side effects and to explain this further -- Please let me know if you experience any changes in your vision, worsening depression or mood problems, or an increase in suicidal thoughts or behaviors. --This medication should NOT be combined with alcohol. Risks of drinking alcohol while taking this medication include mental and psychological side effects, including confusion, dizziness, drowsiness, and depression. -- There is an increased risk for oral clefts when topiramate is used in the first trimester of . -- There is a possible decrease in contraceptive efficacy when using estrogen-containing control with topiramate, please use a back up form of control such as condoms and monitor for throughout treatment. -- If you decide that you would like to get or if you have any of these side effects please let me know and we can safely discontinue the medication. - If you are on loop diuretic or thiazide diuretic we will want to monitor your potassium level, especially if you have a history of low potassium. - It is important to taper off of this medication when we finished with treatment, typically decreasing the dose 25 mg a week. Stopping Topiramate abruptly can cause irritability, anxiety and difficulty concentrating. Topiramate (toe pyre? a mate) What are the common names? Topamax Why is this medication prescribed? Topiramate is an anti-epileptic medications which has been approved by the FDA for patients 10 years of age or older for treatment of seizures. However, topiramate also has other uses such as the treatment of migraines. It also causes decrease in appetite and weight loss. The mechanism of weight loss is thought to be through inhibition of mitochondrial enzymes involved in energy expenditure and metabolism. Topiramate may work by helping you feel less hungry, less ?driven? to eat, more satisfied with less food. What special precautions should I follow? Before having topiramate prescribed, tell your doctor and pharmacist: If you have allergies to any component of topiramate If you are , plan to become , are breast-feeding, or if you become while taking topiramate What are the warnings and precautions for this medication? Immediately discontinue the medicine and seek medical help if you have severe cognitive/neuropsychiatric adverse symptoms or eye symptoms. Cognitive/neuropsychiatric adverse events: symptoms may include confusion, psychomotor slowing, difficulty with concentration/attention, difficulty with memory, speech or language problems, particularily word-finding difficulties, somnolence or fatigue Acute myopia and secondary angle closure glaucoma, usually within 1 month of starting treatment: symptoms may include blurred vision, redness and/or pain in the eye Oligohydrosis (decrease sweating) and hyperthermia (elevation in body temperature) Increase in suicidal behavior or ideation Metabolic acidosis, non-gap hyperchloremic (decreased serum bicarbonate below normal levels) resulting in hyperventilation or fatigue Kidney stones Paresthesias (numbness or tingling in hands or feet) Ataxia Dizziness Increase in urination frequency Drug interactions. Use of monamine oxidase inhibitors (MAOI?s), valproic acid, Caution use with dehydration or diarrheal illness, hepatic or renal impairment In case of emergency/overdose In case of overdose, call your local poison control center at or call local emergency services at [phone]. What other information should I know? Keep all appointments with your doctor and the laboratory. Do not let anyone else take your medication. Topiramate use needs to be monitored closely. Prescriptions may be refilled only a limited number of times. Keep a written list of all of your prescription and nonprescription ([id number]) medicines, in addition to vitamins, minerals, or other dietary supplements. How should I monitor while on this medication? Your doctor will check your baseline kidney function and electrolytes prior to starting this medication, then periodically. Continue to improve your dietary and physical activity habits as the combination works best while on this medication. Start out by taking the medication at bedtime as it can cause fatigue and sleepiness. Be sure to eat regular meals. Less hunger does not make it appropriate to skip meals. Make sure to have an eye exam, including the pressure in your eyes (intra-ocular pressure), once a year. What should I do if I forget a dose? Skip the missed dose and continue your regular dosing schedule the next day. Do not take a double dose to make up for a missed one. Sources Pubmed Health: http://www.ncbi.nlm.nih.gov/pubmedhealth/EGU4076190/ Drugs.com http://www.drugs.com/pro/topiramate.html Disposition: Return in about 4 weeks (around 10/30/2024) for wt mgt F/up. Follow-up and Disposition History for Encounter Date Provider Department Center 10/02/2024 [id number] [id number] Encounter Status:Closed by JACLYN BARBER on 10/02/24 PROGRESS Observed: 10/02/2024 7:34 AM Status: COMPLETED Source: [facility] ID: [id number] Author: JACLYN BARBER APRN.TEACHER EDUCATION DIRECTOR Service: ? Author Type: Nurse Practitioner Type: Progress Notes Filed: 10/02/2024 10:52 Note Text: Patient Summary: Forest Ovalle is a 39 year old female with obesity who presents for an initial evaluation of overweight/obesity to treat and prevent co-morbidities and is interested in combination of behavioral and pharmacological. Motivation for seeking treatment for the disease of overweight/obesity : Mostly my own health, interested in learning more about healthy habits and weight loss and what will work best, has a 5 year old daughter Goal weight: 130 Lowest recall weight: 120 Highest non- recall weight: 190 Patient identified barriers to weight loss: struggle with consistency, mental strength to make better choices, easily discouraged. Weight History: She reports a strong family history of obesity and adolescence weight gain. She states her weight gain is related to the following factors, including reduced physical activity, inadequate sleep duration, and portion control, weight gain. Difficulty losing weight? yes History of weight loss with regain? Yes - Last Wt 10/02/24 : 77.1 kg (170 lb) 5% weight loss = 167 lbs, 10% weight loss = 158 lbs WEIGHT GRAPH: Diet/Nutrition overview: Awake - 0700 3 days a week - sips large coffee mint mocha mix from 0830 -3 B - SKIP/WE 50% of the time - eggs and toast S - none L - SKIP/ WE if did not eat [employer]Videosongs's RB sandwich with sauce or leftovers S - none D - 7-8 pm lasagne or tacos or sausage rice casserole or teriyaki chicken and rice or grilled meat/baked potato with tea with SF drink mixes. eats out 3-4 times a week Chipot[employer] - Steak, white rice, black beans, s cream, cheese, corn tomatoes, chips, sweet tea Subway - 6 in wheat Nauruan parra veg sweet tea [employer]ob[employer] - shrimp scampi, 2 biscuits, occas Anshul salad, sweet tea [employer] [place] - chicken fingers, fries or smothered grilled chicken and cottage cheese with sweet tea S - none Fluids: sweet tea and tea with SF mixes, 3 days a week - sips large coffee mint mocha mix from 0830 -3, no water Bedtime - midnight Quality of diet: 24hr recall suggests somewhat unhealthy diet. Characterization of diet:Structured, increased consumption of sugar sweetened beverages, and skip meals. Supervisor Winter of impaired eating habits:emotion and stress causes her to eat out instead of planning healthy meals and food prepping. Not hungry, gets full easily, stays full for up to 6 hours. Eating Disorder no Cravings: salty, crunchy Sleep Duration: 6-7 hours. 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 Nonalcoholic fatty liver disease 10/23/2022 PAST SURGICAL HISTORY Procedure Laterality Date HYSTEROSCOPY removal of polyp IVF RETRIEVAL ANY METHOD FAMILY HISTORY Problem Relation Age of Onset Hypertension Mother Breast Cancer Mother 62 BRCA neg Obesity Mother Hypertension Father Obesity Father Polycystic Ovary Syndrome Sister Obesity Sister Polycystic Ovary Syndrome Sister Obesity Sister Stroke Maternal Grandmother Diabetes Maternal Grandfather Hypertension Maternal Grandfather Obesity Maternal Grandfather Chronic Kidney Disease Maternal Grandfather Obesity Paternal Grandmother Obesity Paternal Grandfather Cancer Maternal Aunt lung Diabetes Maternal Uncle Diabetes Maternal Uncle Hypertension Paternal Aunt Hypertension Paternal Uncle Hypertension Paternal Uncle Cancer Paternal Uncle pancreatic Hypertension Paternal Uncle Colon Cancer Paternal Uncle Coronary Artery Disease Paternal Uncle Social History Tobacco Use Smoking status: Never Smokeless tobacco: Never Vaping Use Vaping status: Never Used Substance Use Topics Alcohol use: Yes Comment: Social, not while Drug use: No AOM Medications: none Weight Promoting Medications: none Diet/weight loss History: Past weight loss attempts? commercial diets, self-directed, exercise program, dietitian, and anti-obesity medications Semaglutide (Ozempic) and Tirzepatide (Mounjaro). Semaglutide gave stomach pain and diarrhea, Tirzepatide was not effective and costly. Caloric restriction, Sole Trimmer, Exercise/increased activity, Low Carbohydrate diet, MyFitnessPal, Slimfast, Starvation, Weight watchers, and Optavia Recently - difficult to lose any weight Exercise: Regular exercise: no Strength/resistance exercise:no Barriers to regular exercise? no Work-related activity:Sedentary. 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 Current Contraception: none - male factor infertility Obesity ROS/ FHx GEN: Fatigue:yes CV: h/o palpitations/cardiac arrhythmia, Chest pain: no HTN: yes PULM: Asthma:no GI: GERD:yes - Prilosec ; Gallstones:no ; Fatty liver disease:Yes Pancreatitis: no MSK: Joint Pain:no : Nephrolithiasis: no Symptoms of PCOS: no NEURO: Migraines/ESPINOZA: yes 2/week ; H/o seizures: no Glaucoma:no; Cataracts no Symptoms of or History of pseudotumor cerebri:no Family or personal History of MEN2 or Medullary thyroid cancer: no PE BP 154/98 Pulse 97 Ht 150 cm (4' 11.06) Wt 77.1 kg (170 lb) LMP 09/17/2024 (Exact Date) SpO2 98% BMI 34.27 kg/m? Home BP 130's/87 Waist Circumference: 43.5 Neck Circumference: 14.5 GENERAL: Female in NAD. Central adiposity. SKIN: acanthosis nigricans no, Skin tags: yes Hirsutism: no HEENT: PERRL, No supraclavicular adiposity. No dorsal adiposity. RESPIRATORY: CBTA CARDIAC: RRR ABDOMEN: Small pannus; EXTREMITIES: peripheral edema: no Results: reviewed with the patient No visits with results within 3 Month(s) from this visit. Impression: Forest Ovalle is a 39 year old Female with Class II obesity (Body mass index is 34.27 kg/m?.) who has adolescence obesity with several periods of weight loss followed by weight gain . The causes of her obesity are multifactorial, biological, psychological and social and environmental. Specific factors include a genetic component related to a strong family of obesity, increased consumption of high calorie/process foods, irregular eating patterns , suboptimal physical activity, and post weight retention. She has few weight-related medical comorbidities which increase her cardiovascular mortality risk. There are additional metabolic obesity complications including hypertension. Other medical conditions as above. Regarding her lifestyle, as above, she has a few behavioral contributors ; her physical activity is non-existent. Overall, it is clear that her quality of life is mildly compromised by her weight. It is likely a combination of weight loss therapies will be needed. She appears motivated today. ASSESSMENT/PLAN: 1. Hypertension, essential - ICD9: 401.9, ICD10: I10 (primary diagnosis) - treated with labetalol and amlodipine - Home BP 130's/87 - benefits of weight loss discussed - Whole food balanced protein low-carb nutrition 2. GERD without esophagitis - ICD9: 530.81, ICD10: K21.9 - Discussed lifestyle modifications including losing weight, limiting caffeine, no meals three hours before sleep, and head of bed elevation - Omeprazole 40 mg - benefits of weight loss discussed - Whole food balanced protein low-carb nutrition 3. IFG (impaired fasting glucose) - ICD9: 790.21, ICD10: R73.01 - history - INSULIN, TOTAL, SERUM - HEMOGLOBIN A1C 4. Nonalcoholic fatty liver disease - ICD9: 571.8, ICD10: K76.0 - LIPID PANEL BASIC 5. Screening cholesterol level - ICD9: V77.91, ICD10: Z13.220 - LIPID PANEL BASIC 6. Screening for deficiency anemia - ICD9: V78.1, ICD10: Z13.0 - COMPLETE BLOOD COUNT 7. Screening for diabetes mellitus - ICD9: V77.1, ICD10: Z13.1 - INSULIN, TOTAL, SERUM - HEMOGLOBIN A1C - COMPREHENSIVE METABOLIC PANEL 8. Screening for metabolic disorder - ICD9: V77.99, ICD10: Z13.228 - COMPREHENSIVE METABOLIC PANEL 9. Class 1 obesity with serious comorbidity and body mass index (BMI) of 34.0 to 34.9 in adult, unspecified obesity type - ICD9: 278.00, V85.34, ICD10: E66.811, Z68.34 Plan: -- Based on the severity and resistance of the obesity/overweight with co-morbidities, I believe a combination of behavioral and possibly pharmacological intervention is the best and most appropriate penitentiary therapeutic option. - INSULIN, TOTAL, SERUM - HEMOGLOBIN A1C - COMPLETE BLOOD COUNT - LIPID PANEL BASIC - COMPREHENSIVE METABOLIC PANEL Supervisor Winter of impaired eating habits:emotion and stress causes her to eat out instead of planning healthy meals and food prepping. Not hungry, gets full easily, stays full for up to 6 hours.Given information on metformin ER and topiramate to review for dual treatment of IFG and migraine. -- We discussed several strategies to track food intake and increase mindfulness around eating while will decrease calorie intake. She was counseled on the following: Eating primarily whole foods. Limit carbs, especially processed carbs. Do not drink your calories 30 grams of protein for breakfast decreases your hunger during the day by up to 40 % Premier Protein or generic 30 gm protein 1 gm sugar Walk for 15 minutes immediately a meal. -- Encouraged the patient to improve her physical activity. Although cardiovascular exercise is most beneficial for weight loss initially, we discussed healthy muscle from a combination of resistance training and cardiovascular exercise is the best penitentiary plan. An overall goal of 150-200 minutes per week of exercise has been effective in weight loss and maintenance. -- Reviewed that monitoring weight daily and food intake can have a positive impact on overall weight loss and maintenance of weight loss. Activity tracking can be used to stay on target for exercise however should not be used to reward oneself She understands that there can be limitations of pharmacotherapy due to contraindications, side effects and cost. Patient was told to contact her insurance company to see what AOMs and supervised behavioral medical appointments are currently covered. Patient understands she will have more success when following a healthy lifestyle. We reviewed continued use of online tracking of daily weights, food journal and if desired physical activity. We reviewed that during management she is to report any concerning side effects of any pharmacotherapy she is placed on. She understands that she will need routine follow up in the office. Prior to any virtual visits in the future she will need to check her Blood pressure, weight, and pulse. Prescription instructions reviewed with patient as applicable. Potential red flag symptoms discussed with the patient. Reviewed appropriate action plan to take if red flag symptoms occur. Patient agreeable to treatment plan. -- follow-up visit in 4-6 weeks for management of above interventions Jaclyn Barber CNP Advanced Education from the [employer] I spent a total of 77 minutes on the date of the service which included preparing to see the patient, [id number] patient care, completing clinical documentation, obtaining and/or reviewing separately obtained history, performing a medically appropriate examination, counseling and educating the patient/family/caregiver, and ordering medications, tests, or procedures. PAP TEST Collected: 3:02 PM Status: F Source: [facility] Order Comment: Specimen Type : FLUID SPECIMEN Ordering Facility: [facility] Address: [address] [place] [address] TYPE CODE TESTS RESULT OUT OF RANGE REFERENCE UNITS PATHOLOGY [id number] CASE REPORT Result Comment: Gynecologic Cytology Report Case: [id number] Authorizing Provider: Michael Milligan MD Collected: 06/13/2024 03:02 PM Ordering Location: OB/Gynecology Received: 06/13/2024 05:16 PM First Screen: Ada Cristobal CT, ASCP Specimen: Pap Test, ThinPrep, Cervix PATHOLOGY [id number] ADEQU[place]Y Satisfactory for interpretation. PATHOLOGY [id number] INTERPRETATIO N, CYTOLOGY, EXCEL ANALYST Result Comment: Negative for intraepithelial lesion or malignancy. OLOGY [id number] CLINICAL HISTORY, CYTOLOGY, EXCEL ANALYST Routine Exam PATHOLOGY [id number] [facility] 05/29/2024 PATHOLOGY PAPDC PAP DISCLAIMER COMMENT The Pap Smear is a screening test for cervical cancer. False negative results occur with all screening tests, emphasizing the need for rescreening at recommended intervals, and clinical correlation. PATHOLOGY PAPIC PAP SENIOR SQL DBA COMMENT This specimen has been analyzed by the ThinPrep Imaging System, an automated imaging and review system, which assists the laboratory in evaluating cells on ThinPrep Pap tests. Following automated imaging, selected renteria from every slide are reviewed by a cytotechnologis tIndy PATHOLOGY [facility] FIN[facility] PERFORM[facility] Result Comment: Technical co merlene, sewage plant supervisor screening performed at [facility], [address] [place] [address] CLIA# [id number] Diagnostic interpretation performed at [facility], [address] [place] [address] CLIA# [id number] Informatics Pharmacist: Yefri Lomeli M.D. Performed By: #### [id number] ### [facility] CLIA [id number] [address] [place] [address] [place] HIGH RISK HUMAN PAPILLOMA VIRUS (HPV), PCR FOR DETECTION AND GENOTYPING Collected: 06/13/2024 3:02 PM Status: F Source: [facility] Order Comment: Specimen Type : FLUID SPECIMEN Ordering Facility: [facility] Address: [address] [place] [address] TYPE CODE TESTS RESULT OUT OF RANGE REFERENCE UNITS LAB 87092-1(INC) HPV16 Ag Spec Ql Not detected Not detected LAB 80685-6(LOINC) HPV18 Ag Spec Ql Not detected Not detected LAB 93507-8(INC) HPV HR 12 DNA Cvx Ql VINH+probe Not detected Not detected Result Comment: High Risk HP V Other Type includes HPV types 31, 33, 35, 39, 45, 51, 52, 56, 58, 59, 66 and 68. Performed By: #### HPVHRT ## ## [facility] CLIA [id number] [address] [place] [address] [place] CNOV Observed: 06/13/2024 2:20 PM Status: COMPLETED Source: [facility] Office Visit (OBGYWM) FOREST OVALLE ([id number]) 1985 F Date Time Provider Department 06/13/24 2:20 PM MICHAEL MILLIGAN OBGYWM During your visit today, we recorded the following information about you: Blood pressure Weight Height Last Period 164/102 79.8 kg 1.499 m 05/29/24 Michael Milligan MD 06/13/2024 2:43 PM Signed Forest is a 39 year old who presents for an annual gynecologic exam without complaints. Menses: cycles every 28-30 days and 4-5 days of flow. 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 Nonalcoholic fatty liver disease 10/23/2022 PAST SURGICAL HISTORY Procedure Laterality Date HYSTEROSCOPY removal of polyp IVF RETRIEVAL ANY METHOD FAMILY HISTORY Problem Relation Age of Onset Hypertension Mother Breast Cancer Mother 62 BRCA neg Hypertension Father No Known Problems Sister No Known Problems Sister No Known Problems Sister Stroke Maternal Grandmother Diabetes Maternal Grandfather Hypertension Maternal Grandfather No Known Problems Paternal Grandmother No Known Problems Paternal Grandfather Cancer Maternal Aunt lung Diabetes Maternal Uncle Diabetes Maternal Uncle Hypertension Paternal Aunt Hypertension Paternal Uncle Hypertension Paternal Uncle Cancer Paternal Uncle pancreatic Hypertension Paternal Uncle Colon Cancer Paternal Uncle Coronary Artery Disease Paternal Uncle SOCIAL HISTORY Social History Tobacco Use Smoking status: Never Smokeless tobacco: Never Vaping Use Vaping status: Never Used Substance Use Topics Alcohol use: Yes Comment: Social, not while Drug use: No REVIEW OF SYSTEMS Abdomen: No abdominal pain, nausea, vomiting, diarrhea, or constipation. No bloating, early satiety, indigestion, or increased flatulence. Bladder: No dysuria, gross hematuria, urinary frequency, urinary urgency, or incontinence. Breast: No breast lumps, nipple d/c, overlying skin changes, redness or skin retraction. Allergies and current medication updated:Yes SENSITIVE EXAM: The sensitive examination was discussed with the Patient or Patient's Authorized Hydrography Teacher. As applicable, any other physician, advance practice provider, medical student, or other health professional student that will be observing or involved in the sensitive examination for educational or training purposes was discussed with the Patient or Authorized Hydrography Teacher. The Patient or Authorized Hydrography Teacher has agreed to proceed with the sensitive examination. (Sensitive examination includes inspection and/or palpation of the breasts, pelvis, prostate and anorectal regions). EXAM: BP 164/102 Ht 4' 11 (1.50m) Wt 176 lb (79.8kg) LMP 05/29/2024 BMI 35.53 kg/(m2). GENERAL: pleasant, female in no apparent distress HEENT: Normocephalic, atraumatic, mucus membranes moist, and no lesions NECK: Supple, full range of motion, no adenopathy, and thyroid normal DERMATOLOGY: Normal, without lesions, non-icteric, and non-hirsute BREAST: soft, non-tender, symmetric, no dominant mass, normal nipple-areolar complex, no lymphadenopathy, and no nipple discharge CHEST: Normal inspiratory effort ABDOMEN: soft, non-tender, and no masses PELVIC: external genitalia normal, normal Bartholin's glands, urethra, [place]'s glands, no vulvar lesions, no cervical lesions, good vaginal support, physiologic discharge present, normal appearing perineal body and perianal region BIMANUAL: uterus normal size, shape and consistency, no adnexal masses, and non-tender RECTOVAGINAL: deferred. NEURO: alert and oriented x3,exam grossly non-focal EXTREMITIES: normal ASSESSMENT/PLAN: 1) Health maintenance: Pap done with HPV. Mammogram starting age 40. 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 Contraceptive options reviewed and information provided. 3) STD screening: Declined STD check. 4) Follow up one year or sooner as needed Michael Milligan MD Allergies As of Date: 06/13/2024 (No Known Allergies) Date Reviewed: 06/13/2024 Reviewed by: Michael Milligan MD - Fully Assessed Reason for Visit: Yearly Exam [187] Primary Visit Diagnosis:Encounter for gynecological examination (general) (routine) without abnormal findings [Z01.419] Other Visit Diagnoses:Screening for cervical cancer [Z12.4] Encounter for screening for human papillomavirus (HPV) [Z11.51] Order(s):PAP TEST [ADZ2421] Order #: [id number] Prescriptions as of 06/13/2024 - ketoconazole (NIZORAL) 2 % shampoo WASH THE SCALP ONCE EVERY OTHER WASH, LETTING IT LATHER FOR 3-5 MINUTES BEFORE RINSING - amLODIPine (NORVASC) 10 mg tablet Take 1 tablet by mouth once daily. - labetalol (TRANDATE) 200 mg tablet Take 1 tablet by mouth three times daily. - omeprazole (PRILOSEC) 40 mg capsule Take 1 capsule by mouth twice daily before meals. 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 Follow-up and Disposition History for Encounter Date Provider Department Center 06/13/2024 [id number] MILLIGAN Encounter Status:Closed by MICHAEL MILLIGAN on 06/13/24 PROGRESS Observed: 06/13/2024 2:16 PM Status: COMPLETED Source: [facility] HNO ID: [id number] Author: MICHAEL MILLIGAN MD Service: ? Author Type: Physician Type: Progress Notes Filed: 06/13/2024 14:43 Note Text: Forest is a 39 year old who presents for an annual gynecologic exam without complaints. Menses: cycles every 28-30 days and 4-5 days of flow. 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 Nonalcoholic fatty liver disease 10/23/2022 PAST SURGICAL HISTORY Procedure Laterality Date HYSTEROSCOPY removal of polyp IVF RETRIEVAL ANY METHOD FAMILY HISTORY Problem Relation Age of Onset Hypertension Mother Breast Cancer Mother 62 BRCA neg Hypertension Father No Known Problems Sister No Known Problems Sister No Known Problems Sister Stroke Maternal Grandmother Diabetes Maternal Grandfather Hypertension Maternal Grandfather No Known Problems Paternal Grandmother No Known Problems Paternal Grandfather Cancer Maternal Aunt lung Diabetes Maternal Uncle Diabetes Maternal Uncle Hypertension Paternal Aunt Hypertension Paternal Uncle Hypertension Paternal Uncle Cancer Paternal Uncle pancreatic Hypertension Paternal Uncle Colon Cancer Paternal Uncle Coronary Artery Disease Paternal Uncle SOCIAL HISTORY Social History Tobacco Use Smoking status: Never Smokeless tobacco: Never Vaping Use Vaping status: Never Used Substance Use Topics Alcohol use: Yes Comment: Social, not while Drug use: No REVIEW OF SYSTEMS Abdomen: No abdominal pain, nausea, vomiting, diarrhea, or constipation. No bloating, early satiety, indigestion, or increased flatulence. Bladder: No dysuria, gross hematuria, urinary frequency, urinary urgency, or incontinence. Breast: No breast lumps, nipple d/c, overlying skin changes, redness or skin retraction. Allergies and current medication updated:Yes SENSITIVE EXAM: The sensitive examination was discussed with the Patient or Patient's Authorized Hydrography Teacher. As applicable, any other physician, advance practice provider, medical student, or other health professional student that will be observing or involved in the sensitive examination for educational or training purposes was discussed with the Patient or Authorized Hydrography Teacher. The Patient or Authorized Hydrography Teacher has agreed to proceed with the sensitive examination. (Sensitive examination includes inspection and/or palpation of the breasts, pelvis, prostate and anorectal regions). EXAM: BP 164/102 Ht 4' 11 (1.50m) Wt 176 lb (79.8kg) LMP 05/29/2024 BMI 35.53 kg/(m2). GENERAL: pleasant, female in no apparent distress HEENT: Normocephalic, atraumatic, mucus membranes moist, and no lesions NECK: Supple, full range of motion, no adenopathy, and thyroid normal DERMATOLOGY: Normal, without lesions, non-icteric, and non-hirsute BREAST: soft, non-tender, symmetric, no dominant mass, normal nipple-areolar complex, no lymphadenopathy, and no nipple discharge CHEST: Normal inspiratory effort ABDOMEN: soft, non-tender, and no masses PELVIC: external genitalia normal, normal Bartholin's glands, urethra, [place]'s glands, no vulvar lesions, no cervical lesions, good vaginal support, physiologic discharge present, normal appearing perineal body and perianal region BIMANUAL: uterus normal size, shape and consistency, no adnexal masses, and non-tender RECTOVAGINAL: deferred. NEURO: alert and oriented x3,exam grossly non-focal EXTREMITIES: normal ASSESSMENT/PLAN: 1) Health maintenance: Pap done with HPV. Mammogram starting age 40. 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 Contraceptive options reviewed and information provided. 3) STD screening: Declined STD check. 4) Follow up one year or sooner as needed Michael Milligan MD ALLERGIES DATE TYPE / CODE NAME / CODE REACTION SEVERITY SOURCE Drug Class/[id number](SNO MED CT) NO KNOWN ALLERGIES [facility] ENCOUNTERS ADMIT/DISCHARGE ACCOUNT NUMBER ADMITTING ENCOUNTER CLASS LOC ATION SOURCE 01/10/2025/ [id number] [facility] HospitalBuild ing:[facility]B [facility] 11/29/2024/ 5 [id number] [address] [facility] HospitalBuild ing:[facility]MOB [facility] 10/31/2024/ 5 [id number] Amb[address] [facility] HospitalBuild ing:[facility]MOB [facility] 10/02/2024/ 5 [id number] Amb[address] [facility] HospitalBuild ing:WOL2 [facility] 10/02/2024/ 5 [id number] Amb[address] [facility] HospitalBuild ing:[facility]MOB [facility] 06/13/2024/ [id number] [facility] HospitalBuild ing:[facility] PAYERS ENCOUNTER GUARANTOR PAYER SUBSCRIBER SOURCE 01/10/2025 Primary Insurance:BLUE CARD PPO OOSPolicy Number: [id number] Date:[id number] Name:Mesfin AGEE KEVINB: [id number] [place] [address] [facility] 11/29/2024 Primary Insurance:BLUE CARD PPO OOSPolicy Number: [id number] Date:8891-28-94Xmyt Name:Mesfin AGEE KEVINB: [id number] [place] [address] [facility] 10/31/2024 Primary Insurance:BLUE CARD PPO OOSPolicy Number: [id number] Date:9371-56-84Jpfv Name:Mesfin AGEE KEVINB: [id number] [place] [address] [facility] 10/02/2024 Primary Insurance:AETNA POSPolicy Number: [id number] Date:2045-01-74Hmjo Name:Devin BROWNB: [id number] [place] [address] [facility] 10/02/2024 Primary Insurance:AETNA POSPolicy Number: [id number] Date:5647-00-09Klme Name:Devin GRAY: [id number] Mallika [address] [place] [place] [address] [facility] 06/13/2024 Primary Insurance:JAMSHID Guzmán Number: [id number] Date:7547-66-44Udit Name:Devin GRAY: [id number] Mallika [facility] [facility] [place] [address] [facility]
--- NOTE | 2025-05-14 08:06 | CT_ITS ---
PROCEDURE: LIMITED CHEST CT CARDIAC ONLY 05/14/2025 REASON FOR EXAM: CHEST PAIN TECHNIQUE: Procedure Code: [id number] Modality: CT Procedure: LIMITED CHEST CT CARDIAC ONLY One or more dose reduction techniques were used (e.g., Automated exposure control, adjustment of the mA and/or kV according to patient size, use of iterative reconstruction technique). RADIATION DOSE SUMMARY: CTDlvol: 12.19 mGy DLP: 195.04 mGycm COMPARISON: Chest x-ray 04/08/2025 CT/Limited Chest CT Cardiac Only IMPRESSION: A small hiatal hernia is seen. Limited imaging of the lungs demonstrates no acute process. No pleural effusion or pneumothorax is seen in visualized areas. No adenopathy is noted. The visualized upper abdomen demonstrates no significant abnormality. Reading Location: [id number]
--- NOTE | 2025-05-14 19:04 | CA.SCORE ---
Calcium Scoring Date of Study:: 05/14/25 Indications Indications: Family history hypertension Coronary Calcium Scoring: High-resolution Computed Tomographic imaging of the chest was performed on [05/14/25 ], with particular attention paid to the coronary arteries. Images from the examination were analyzed for the presence and extent of coronary artery calcification , using coronary calcium quantification software. The patient tolerated the procedure well and there were no complications. The results of the coronary calcification analysis are provided below. Findings Coronary Artery Left Main (LM): 0 Left Anterior Descending (LAD): 0 Left Circumflex (LCX): 0 Right Coronary Artery (RCA): 0 Total Agatston Score: 0 Percentile Rankin Calcium Scoring Interpretation: Different methods to categorize the overall amount of coronary plaque. Overall amount CAC SIS Visual of coronary plaque P1 Mild -100 <2 1-2 vessels with mild amount of plaque P2 Moderate 101-300 3-4 1-2 vessels with moderate amount, 3 vessels with mild amount of plaque P3 Severe 301-999 5-7 3 vessels with moderate amount, 1 vessel with severe amount of plaque P4 Extensive >1000 >8 2-3 vessels with severe amount of plaque Conclusion: No atherosclerotic plaquing
== END | disposition home or self-care (01) ==
PROVIDERS: PCP Family Medicine; Referring Provider Family Medicine; Visit Provider Family Medicine
DX: R07.89 Other chest pain (principal); I10 Essential (primary) hypertension; Z91.89 Other specified personal risk factors, not elsewhere classified
CPT/HCPCS: 75571; 76380